=== PATIENT | female | born 1950 | race African-American/Black ===

== ENCOUNTER 2017-03-13 17:14 | Inpatient (IN) | payer MEDICARE, OTHER ==
[~2017-03-13] VITALS: Ht 167.6 cm; Wt 84.4 kg
[~2017-03-13 17:14] MED LIST: ATIVAN2 MG ORAL; AZITHROMYCIN250 MG ORAL; CYCLOBENZAPRINE10 MG ORAL; DESYREL50 MG ORAL; GABAPENTIN600 MG ORAL; HYDROCHLOROTH12.5 MG ORAL; HYDROCHLOROTHIA25 G1 MISC; HYDROCHLOROTHIA25 MG ORAL; KEFLEX500 MG ORAL; LEXAPRO10 MG ORAL; LOTREL 10-40 M1 EACH ORAL; NEURONTIN300 MG ORAL; NORCO 10/3251 EA ORAL; NORCO 5-325 TA1 EACH PO; PROZAC20 MG ORAL; ROBITUSSIN DM5 ML ORAL; SIMVASTATIN40 MG ORAL; VASERETIC1 EA PO; WELLBUTRIN XL150 M1 ORAL
[2017-03-13] MEDS ORDERED: Nitroglycerin Subl 0.4mg tab (Bottle Of 25) SL PRN ×2 (17:45→20:15)
[2017-03-13 17:50] VITALS: BP 168/81
[2017-03-13 18:30] VITALS: BP 155/74
[2017-03-13 18:46] LABS: BASOPHILS % (AUTO) 1.1 % (0.0-2.0); LYMPHOCYTES % (AUTO) 34.4 % (20.0-45.0); MEAN CORPUSCULAR HEMOGLOBIN 29.3 PG (27.0-31.0); MEAN CORPUSCULAR HGB CONC 32.1 G/DL (32.0-36.0); MEAN CORPUSCULAR VOLUME 91 FL (80-99); MEAN PLATELET VOLUME 8.8 FL (6.5-10.1); MONOCYTES % (AUTO) 4.7 % (1.0-10.0); NEUTROPHILS % (AUTO) 57.7 % (45.0-75.0); PLATELET COUNT 180 K/UL (150-450); RED BLOOD COUNT 4.76 M/UL (4.20-5.40); RED CELL DISTRIBUTION WIDTH 14.2 % (11.6-14.8); WHITE BLOOD COUNT 7.1 K/UL (4.8-10.8)
[2017-03-13] MEDS ORDERED: Morphine Sulfate 4mg/ml Inj IVP ONE (19:15)
[2017-03-13 19:26] LABS: ALANINE AMINOTRANSFERASE 17 U/L (3-33); ALBUMIN/GLOBULIN RATIO 1.9 (1.0-2.7); ANION GAP 14 (5-15); ASPARTATE AMINO TRANSFERASE 21 U/L (5-40); CALCIUM 10.1 mg/dL (8.6-10.2); CARBON DIOXIDE 27 mEQ/L (20-30); CHLORIDE 103 mEQ/L (98-107); CREATININE 0.9 mg/dL (0.5-0.9); GLOMERULAR FILTRATION RATE > 60 mL/min (>60); HEMOLYSIS 20; POTASSIUM 4.2 mEQ/L (3.4-4.9); SODIUM 144 mEQ/L (135-145); TOTAL PROTEIN 7.6 g/dL (6.6-8.7); TROPONIN I < 0.30 ng/mL (<=0.30)
[2017-03-13 19:30] VITALS: BP 159/84
[2017-03-13 19:36] LABS: CKMB < 1.5 ng/mL (< 3.8)
--- NOTE | 2017-03-13 19:39 | Emergency Room Report ---
History of Present Illness General Chief Complaint: Chest Pain Source: Patient Present Illness HPI 66-year-old female presents to ED complaining of chest pain. States it started proximal and one hour ago while at rest. Pain is midsternal, pressure, 8/10, nonradiating. Pain is constant. Took aspirin prior to arrival. Denies shortness of breath. No other aggravating or relieving factors. Denies drug use. Denies any other associated symptoms Allergies: Coded Allergies: No Known Allergies (Verified Allergy, Mild, 03/28/07) Patient History Past Medical History: HTN, COPD Past Surgical History: none Pertinent Family History: none Social History: Denies: alcohol use, drug use, smoking Now: No Immunizations: UTD Reviewed Nursing Documentation: PMH: Agreed, PSxH: Agreed Nursing Documentation-PMH Hx Cardiac Problems: Yes Hx Hypertension: Yes Hx Pacemaker: No Hx Asthma: No Hx COPD: Yes Hx Diabetes: No Hx Cancer: No Hx Gastrointestinal Problems: No Hx Dialysis: No Hx Neurological Problems: No Hx Cerebrovascular Accident: No Hx Seizures: No Review of Systems All Other Systems: negative except mentioned in HPI Physical Exam Vital Signs Date Time Temp Pulse Resp B/P Pulse Ox O2 Delivery O2 Flow Rate FiO2 03/13/17 17:20 102 22 168/81 99 Room Air Sp02 EP Interpretation: reviewed, normal General Appearance: no apparent distress, alert, GCS 15, non-toxic Head: normocephalic, atraumatic Eyes: bilateral eye PERRL, bilateral eye normal inspection ENT: hearing grossly normal, normal pharynx, no angioedema, normal voice Neck: full range of motion, supple/symm/no masses Respiratory: chest non-tender, lungs clear, normal breath sounds, speaking full sentences Cardiovascular #1: regular rate, rhythm, no edema Cardiovascular #2: 2+ carotid (R), 2+ carotid (L), 2+ radial (R), 2+ radial (L) , 2+ dorsalis pedis (R), 2+ dorsalis pedis (L) Gastrointestinal: normal bowel sounds, non tender, soft, non-distended, no guarding, no rebound Rectal: deferred Genitourinary: normal inspection, no CVA tenderness Musculoskeletal: back normal, gait/station normal, normal range of motion, non- tender Neurologic: alert, oriented x3, responsive, motor strength/tone normal, sensory intact, speech normal Psychiatric: judgement/insight normal, memory normal, mood/affect normal, no suicidal/homicidal ideation Reflexes: 3+ bicep (R), 3+ bicep (L), 3+ tricep (R), 3+ tricep (L), 3+ knee (R) , 3+ knee (L) Skin: normal color, no rash, warm/dry, well hydrated Lymphatic: no adenopathy Medical Decision Making Diagnostic Impression: Primary Impression: ACS (acute coronary syndrome) ER Course Hospital Course 66-year-old female presents ED complaining of chest pain Differential diagnoses include: NC/unstable angina, contusion, muscle strain, PTX, rib fracture Clinical course Patient placed on stretcher. 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 After initial history and physical I ordered labs, EKG, chest x-ray, NTG labs reviewed- no leukocytosis, hb/hct stable, electrolytes ok, trop negative EKG - NSR, no acute changes interpreted by me Chest x-ray- unremarkable chest pain did not improve with NTG, given morphine, IVFs Case discussed with Dr. Nguyen and he agreed to accept the patient to his service for further care and support I. I feel this is a highly complex case requiring extensive working including EKG/Rhythm strip, Xray/CT/US, Blood/urine lab work, repeat exams while in ED, and administration of strong opiates/narcotics for pain control, admission to hospital or close patient follow up. Diagnosis - ACS admitted to telemetry in serious condition Labs Test 03/13/17 18:20 White Blood Count 7.1 K/UL (4.8-10.8) Red Blood Count 4.76 M/UL (4.20-5.40) Hemoglobin 13.9 G/DL (12.0-16.0) Hematocrit 43.4 % (37.0-47.0) Mean Corpuscular Volume 91 FL (80-99) Mean Corpuscular Hemoglobin 29.3 PG (27.0-31.0) Mean Corpuscular Hemoglobin Concent 32.1 G/DL (32.0-36.0) Red Cell Distribution Width 14.2 % (11.6-14.8) Platelet Count 180 K/UL (150-450) Mean Platelet Volume 8.8 FL (6.5-10.1) Neutrophils (%) (Auto) 57.7 % (45.0-75.0) Lymphocytes (%) (Auto) 34.4 % (20.0-45.0) Monocytes (%) (Auto) 4.7 % (1.0-10.0) Eosinophils (%) (Auto) 2.0 % (0.0-3.0) Basophils (%) (Auto) 1.1 % (0.0-2.0) EKG Diagnostic Results EKG Time: 19:37 Rate: normal Rhythm: NSR ST Segments: no acute changes ASA given to the pt in ED: No - took at home Rhythm Strip Diag. Results EP Interpretation: yes Rhythm: NSR, no PVC's, no ectopy Chest X-Ray Diagnostic Results Chest X-Ray Ordered: Yes # of Views/Limited/Complete: 1 View Interpretation: no consolidation, no effusion, no pneumothorax, no acute cardiopulmonary disease Indication: Chest Pain Impression: No acute disease Date Electronically Signed: Mar 13, 2017 Time Electronically Signed: 19:37 Last Vital Signs Date Time Temp Pulse Resp B/P Pulse Ox O2 Delivery O2 Flow Rate FiO2 03/13/17 19:30 81 18 159/84 99 Room Air Status: improved Disposition: ADMITTED INPATIENT Condition: Serious Referrals: NOT CHOSEN IPA/,REFERRING (PCP) KELSI RUFFIN M.D. Mar 13, 2017 19:39
[2017-03-13] MEDS ORDERED: Norco 10mg/325mg tab ORAL PRN (20:15)
[2017-03-13] MEDS ORDERED: Diltiazem 25mg/5ml IV PRN (20:15)
[2017-03-13] MEDS ORDERED: Enalaprilat 2.5mg/2ml Inj IV PRN (20:15)
[2017-03-13] MEDS ORDERED: DuoNeb 0.5-3(2.5)mg/3ml neb HHN PRN (20:15)
[2017-03-13] MEDS ORDERED: Ketorolac 30mg Inj IV PRN (20:15)
[2017-03-13 20:30] VITALS: BP 154/84
[2017-03-13] MEDS ORDERED: TraZODone 50mg tab ORAL SCH (21:00)
[2017-03-13 21:10] VITALS: BP 159/72
[2017-03-13] MEDS ORDERED: AMLODIPINE BESYL5 MG ORAL (21:58)
[2017-03-13] MEDS ORDERED: ZOLOFT100 MG ORAL (21:58)
[2017-03-13] MEDS ORDERED: ATIVAN2 MG ORAL (21:58)
[2017-03-13] MEDS ORDERED: ASPIR 8181 MG ORAL (21:58)
[2017-03-13] MEDS ORDERED: WELLBUTRIN XL150 MG ORAL (21:58)
[2017-03-13] MEDS: Heparin 5000 units/ml inj SUBQ SCH (22:20)
[2017-03-13] MEDS: Morphine Sulfate 2mg/ml Inj IVP PRN (23:40)
[2017-03-14] VITALS (7 sets, daily range): BP systolic 109–160; BP diastolic 64–87
[2017-03-14] MEDS ORDERED: CRESTOR10 M2 ORAL (00:45)
[2017-03-14] MEDS: Morphine Sulfate 2mg/ml Inj IVP PRN ×3 (03:48→12:06)
[2017-03-14] MEDS: Aspirin Baby 81mg ORAL SCH (08:04)
[2017-03-14] MEDS: BuPROPion XL 150mg tab ORAL SCH ×2 (08:05→17:30)
[2017-03-14] MEDS: Sertraline 100mg tab ORAL SCH ×2 (08:05→17:30)
[2017-03-14] MEDS: Heparin 5000 units/ml inj SUBQ SCH ×2 (08:08→21:17)
[2017-03-14 08:25] LABS: BASOPHILS % (AUTO) 0.9 % (0.0-2.0); EOSINOPHILS % (AUTO) 3.8 % (0.0-3.0); LYMPHOCYTES % (AUTO) 41.5 % (20.0-45.0); MEAN CORPUSCULAR HEMOGLOBIN 28.7 PG (27.0-31.0); MEAN CORPUSCULAR VOLUME 90 FL (80-99); MEAN PLATELET VOLUME 8.4 FL (6.5-10.1); MONOCYTES % (AUTO) 8.5 % (1.0-10.0); NEUTROPHILS % (AUTO) 45.3 % (45.0-75.0); PLATELET COUNT 180 K/UL (150-450); RED BLOOD COUNT 4.25 M/UL (4.20-5.40); RED CELL DISTRIBUTION WIDTH 14.1 % (11.6-14.8)
[2017-03-14 08:35] LABS: INR 0.9 (0.9-1.1); PROTHROMBIN TIME 9.9 SEC (9.30-11.50)
[2017-03-14 08:46] LABS: TROPONIN I < 0.30 ng/mL (<=0.30)
[2017-03-14] MEDS ORDERED: Cyclobenzaprine 10mg Tab ORAL SCH (09:00)
[2017-03-14] MEDS ORDERED: BuPROPion XL 150mg tab ORAL SCH (09:00)
[2017-03-14 09:37] LABS: CHOLESTEROL 225 mg/dL (< 200); CHOLESTEROL/HDL RATIO 4.5 (3.3-4.4); CRP QUANT < 0.3 mg/dL (< 0.5); HEMOLYSIS 4; LDL CHOLESTEROL (CALC.) 139 mg/dL (60-99)
--- NOTE | 2017-03-14 10:49 | Diagnostic Imaging Report ---
Indication: Chest Pain Comparison: 12/10/15 A single view chest radiograph was obtained. Findings: No definite infiltrate or pulmonary vascular congestion identified. Lower cervical fusion hardware noted. The heart is borderline enlarged. The aorta is mildly enlarged consistent with atherosclerotic vascular disease. The bones are osteopenic. Impression: No acute disease
--- NOTE | 2017-03-14 12:42 | History and Physical ---
History of Present Illness General Date patient seen: Mar 14, 2017 Reason for Hospitalization: Chest Pain Present Illness HPI 66-year-old female presents to ED complaining of chest pain for one hour ago while at rest. Pain is midsternal, pressure, 8/10, nonradiating. Pain is constant. Took aspirin prior to arrival. Denies shortness of breath. No other aggravating or relieving factors. Denies drug use. Denies any other associated symptoms Allergies: Coded Allergies: No Known Allergies (Verified Allergy, Mild, 03/28/07) Medication History Scheduled Amlodipine Besylate* (Amlodipine Besylate*), 5 MG ORAL DAILY, (Reported) Aspirin* (Aspir 81*), 81 MG ORAL DAILY, (Reported) Bupropion Hcl* (Wellbutrin Xl*), 150 MG ORAL BID, (Reported) Escitalopram Oxalate* (Lexapro*), 10 MG ORAL DAILY Hydrochlorothiazide* (Hydrochlorothiazide*), 25 MG ORAL DAILY, (Reported) Lorazepam* (Ativan*), 2 MG ORAL BID, (Reported) Rosuvastatin Calcium* (Crestor*), MG ORAL QHS, (Reported) Sertraline Hcl* (Zoloft*), 100 MG ORAL BID, (Reported) Scheduled PRN Hydrocodone/Acetaminophen (Hydrocodon-Acetaminophn 10-325), 1 TAB ORAL Q4H PRN for For Pain, (Reported) Discontinued Medications Bupropion HCl (Wellbutrin Xl), 150 MG ORAL DAILY, (Reported) Discontinued Reason: Medication dose changed Cyclobenzaprine Hcl* (Flexeril*), 10 MG ORAL THREE TIMES A DAY, (Reported) Discontinued Reason: Pt stopped taking med Gabapentin (Neurontin), 300 MG ORAL TID, (Reported) Discontinued Reason: Pt stopped taking med Gabapentin* (Gabapentin*), 600 MG ORAL TID Discontinued Reason: Pt stopped taking med Lorazepam* (Ativan*), 2 MG ORAL TID, (Reported) Discontinued Reason: Medication dose changed Trazodone Hcl (Desyrel), 25 MG ORAL BEDTIME Discontinued Reason: Pt stopped taking med Patient History Healthcare decision maker Resuscitation status Full Code Advanced Directive on File Past Medical/Surgical History Past Medical/Surgical History: (1) Anxiety (2) Cervical herniated disc (3) History of fusion of cervical spine Review of Systems All Other Systems: negative except mentioned in HPI Physical Exam General Appearance: WD/WN Lines, tubes and drains: peripheral HEENT: normocephalic, atraumatic Neck: non-tender, normal alignment Respiratory/Chest: chest wall non-tender, lungs clear Breasts: no masses Cardiovascular/Chest: normal peripheral pulses, normal rate, regular rhythm Abdomen: normal bowel sounds, non tender, soft Extremities: normal range of motion, non-tender Skin Exam: normal pigmentation 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 Last 24 Hour Vital Signs Date Time Temp Pulse Resp B/P Pulse Ox O2 Delivery O2 Flow Rate FiO2 03/14/17 11:59 97.7 73 18 119/75 99 Room Air 03/14/17 08:06 87 144/69 03/14/17 08:00 85 03/14/17 08:00 99.1 87 18 144/69 100 Room Air 03/14/17 08:00 82 18 Room Air 03/14/17 04:00 97.9 82 20 146/80 97 03/14/17 04:00 83 03/14/17 00:00 75 03/14/17 00:00 97.0 79 18 153/87 98 Room Air 03/13/17 21:11 87 03/13/17 21:10 98.2 86 20 159/72 100 Room Air 03/13/17 20:30 74 18 154/84 100 Room Air 03/13/17 20:12 81 18 159/84 99 Room Air 03/13/17 19:30 81 18 159/84 99 Room Air 03/13/17 18:30 79 22 155/74 99 Room Air 03/13/17 17:50 89 22 Room Air 03/13/17 17:50 89 22 168/81 99 Room Air 03/13/17 17:49 168/81 03/13/17 17:20 102 22 168/81 99 Room Air Intake and Output 03/13/17 03/14/17 19:00 07:00 Intake Total 865 ml Output Total 3 ml Balance 862 ml Intake Oral 365 ml IV Total 500 ml Output Urine Total 3 ml # Voids 1 Laboratory Tests Test 03/13/17 18:20 03/13/17 20:45 03/14/17 07:50 White Blood Count 7.1 K/UL (4.8-10.8) 6.0 K/UL (4.8-10.8) Red Blood Count 4.76 M/UL (4.20-5.40) 4.25 M/UL (4.20-5.40) Hemoglobin 13.9 G/DL (12.0-16.0) 12.2 G/DL (12.0-16.0) Hematocrit 43.4 % (37.0-47.0) 38.2 % (37.0-47.0) Mean Corpuscular Volume 91 FL (80-99) 90 FL (80-99) Mean Corpuscular Hemoglobin 29.3 PG (27.0-31.0) 28.7 PG (27.0-31.0) Mean Corpuscular Hemoglobin Concent 32.1 G/DL (32.0-36.0) 32.0 G/DL (32.0-36.0) Red Cell Distribution Width 14.2 % (11.6-14.8) 14.1 % (11.6-14.8) Platelet Count 180 K/UL (150-450) 180 K/UL (150-450) Mean Platelet Volume 8.8 FL (6.5-10.1) 8.4 FL (6.5-10.1) Neutrophils (%) (Auto) 57.7 % (45.0-75.0) 45.3 % (45.0-75.0) Lymphocytes (%) (Auto) 34.4 % (20.0-45.0) 41.5 % (20.0-45.0) Monocytes (%) (Auto) 4.7 % (1.0-10.0) 8.5 % (1.0-10.0) Eosinophils (%) (Auto) 2.0 % (0.0-3.0) 3.8 % (0.0-3.0) H Basophils (%) (Auto) 1.1 % (0.0-2.0) 0.9 % (0.0-2.0) Sodium Level 144 mEQ/L (135-145) Potassium Level 4.2 mEQ/L (3.4-4.9) Chloride Level 103 mEQ/L (98-107) Carbon Dioxide Level 27 mEQ/L (20-30) Anion Gap 14 (5-15) Blood Urea Nitrogen 10 mg/dL (7-23) Creatinine 0.9 mg/dL (0.5-0.9) Estimat Glomerular Filtration Rate > 60 mL/min (>60) Glucose Level 105 mg/dL (74-106) Calcium Level 10.1 mg/dL (8.6-10.2) Total Bilirubin 0.4 mg/dL (0.0-1.2) Aspartate Amino Transf (AST/SGOT) 21 U/L (5-40) Alanine Aminotransferase (ALT/SGPT) 17 U/L (3-33) Alkaline Phosphatase 65 U/L (35-104) Total Creatine Kinase 82 U/L (26-140) Creatine Kinase MB < 1.5 ng/mL (< 3.8) Creatine Kinase MB Relative Index 1.8 Troponin I < 0.30 ng/mL (<=0.30) Pending < 0.30 ng/mL (<=0.30) Pro-B-Type Natriuretic Peptide 373 pg/mL (0-125) H Total Protein 7.6 g/dL (6.6-8.7) Albumin 5.0 g/dL (3.5-5.2) Globulin 2.6 g/dL Albumin/Globulin Ratio 1.9 (1.0-2.7) Prothrombin Time 9.9 SEC (9.30-11.50) Prothromb Time International Ratio 0.9 (0.9-1.1) Activated Partial Thromboplast Time 27 SEC (23-33) C-Reactive Protein, Quantitative < 0.3 mg/dL (< 0.5) Triglycerides Level 182 mg/dL (< 150) H Cholesterol Level 225 mg/dL (< 200) H LDL Cholesterol 139 mg/dL (60-99) H HDL Cholesterol 50 mg/dL (> 60) Cholesterol/HDL Ratio 4.5 (3.3-4.4) H Thyroid Stimulating Hormone (TSH) 4.070 uIU/mL (0.300-4.500) Height (Feet): 5 Height (Inches): 6.00 Weight (Pounds): 186 Medications Current Medications Medications (Trade) Dose Ordered Sig/Star Route PRN Reason Start Time Stop Time Status Last Admin Dose Admin Acetaminophen (Tylenol) 650 mg Q4H PRN ORAL FEVER 03/13/17 20:15 04/12/17 20:14 Acetaminophen/ Hydrocodone Bitart ([place] 10/325) 1 ea Q4H PRN ORAL For Pain 03/13/17 20:15 03/20/17 20:14 Albuterol/ Ipratropium (DuoNeb 0.5-3(2.5)mg/3ml) 3 ml EVERY 4 HOURS PRN HHN Shortness of Breath 03/13/17 20:15 03/18/17 20:14 Amlodipine Besylate (Norvasc) 5 mg DAILY ORAL 03/14/17 09:00 04/13/17 08:59 03/14/17 08:06 Aspirin (ASA) 162 mg DAILY ORAL 03/14/17 09:00 04/13/17 08:59 03/14/17 08:04 Atorvastatin Calcium (Lipitor) 40 mg BEDTIME ORAL 03/14/17 21:00 04/13/17 20:59 Bupropion HCl (Wellbutrin XL) 150 mg BID ORAL 03/14/17 09:00 04/13/17 08:59 03/14/17 08:05 Diltiazem HCl (Cardizem) 10 mg EVERY HOUR PRN IV heart rate more than 120, 03/13/17 20:15 04/12/17 20:14 Enalaprilat (Vasotec) 2.5 mg EVERY 6 HOURS PRN IV sbp more than 160 03/13/17 20:15 04/12/17 20:14 Escitalopram Oxalate (Lexapro) 10 mg DAILY ORAL 03/14/17 09:00 04/13/17 08:59 03/14/17 08:04 Heparin Sodium (Porcine) (Heparin 5000 units/ml) 5,000 units EVERY 12 HOURS SUBQ 03/13/17 21:00 04/12/17 20:59 03/14/17 08:08 Hydromorphone HCl (Dilaudid) 1 mg Q4H PRN IV pain 7-10 03/14/17 12:45 03/21/17 12:44 UNV Ketorolac Tromethamine (Toradol 30mg) 30 mg Q6HR PRN IV moderate pain ( 4-6) 03/13/17 20:15 03/18/17 20:14 Morphine Sulfate (Morphine Sulfate) 2 mg EVERY 4 HOURS PRN IVP severe Pain (Pain Scale 7-10) 03/13/17 20:15 03/20/17 20:14 03/14/17 12:06 Nitroglycerin (Ntg) 0.4 mg Q 5 MINS PRN SL Prn Chest Pain 03/13/17 20:15 04/12/17 20:14 Nitroglycerin (Ntg) 0.4 mg Q5M PRN SL Prn Chest Pain 03/13/17 17:45 03/13/17 17:49 Ondansetron HCl (Zofran) 4 mg Q6H PRN IVP Nausea & Vomiting 03/13/17 20:15 04/12/17 20:14 Polyethylene Glycol (Miralax) 17 gm DAILYPRN PRN ORAL Constipation 03/13/17 20:15 04/12/17 20:14 Sertraline HCl (Zoloft) 100 mg BID ORAL 03/14/17 09:00 04/13/17 08:59 03/14/17 08:05 Temazepam (Restoril) 15 mg HSPRN PRN ORAL Insomnia 03/13/17 20:15 03/20/17 20:14 03/13/17 23:40 Assessment/Plan Problem List: (1) ACS (acute coronary syndrome) ICD Codes: I24.9 - Acute ischemic heart disease, unspecified SNOMED: 606775255 (2) Costochondritis ICD Codes: M94.0 - Chondrocostal junction syndrome [[place]] SNOMED: 87768019 (3) Chronic pain ICD Codes: G89.29 - Other chronic pain SNOMED: 21367633 (4) Degenerative disc disease, cervical ICD Codes: M50.30 - Other cervical disc degeneration, unspecified cervical region SNOMED: 09363958 (5) History of fusion of cervical spine ICD Codes: Z98.1 - Arthrodesis status SNOMED: 03660824, 038107085 Assessment/Plan serial ekg, troponin echo cardio evaluation Pain consult DEBBY CHUNG Mar 14, 2017 12:42
[2017-03-14] MEDS ORDERED: Norco 10mg/325mg tab ORAL PRN (12:47)
--- NOTE | 2017-03-14 14:21 | Cardiology Progress Note ---
Assessment/Plan Assessment/Plan chest pain hyperlipidemia htn obeisty hep c chronci back pain anxiety depression trop neg will reepat ekg tele neg lucho review echo if no swma will need to ahve stress testing done as out pt Objective Last 24 Hour Vital Signs Date Time Temp Pulse Resp B/P Pulse Ox O2 Delivery O2 Flow Rate FiO2 03/14/17 11:59 97.7 73 18 119/75 99 Room Air 03/14/17 08:06 87 144/69 03/14/17 08:00 85 03/14/17 08:00 99.1 87 18 144/69 100 Room Air 03/14/17 08:00 82 18 Room Air 03/14/17 04:00 97.9 82 20 146/80 97 03/14/17 04:00 83 03/14/17 00:00 75 03/14/17 00:00 97.0 79 18 153/87 98 Room Air 03/13/17 21:11 87 03/13/17 21:10 98.2 86 20 159/72 100 Room Air 03/13/17 20:30 74 18 154/84 100 Room Air 03/13/17 20:12 81 18 159/84 99 Room Air 03/13/17 19:30 81 18 159/84 99 Room Air 03/13/17 18:30 79 22 155/74 99 Room Air 03/13/17 17:50 89 22 Room Air 03/13/17 17:50 89 22 168/81 99 Room Air 03/13/17 17:49 168/81 03/13/17 17:20 102 22 168/81 99 Room Air Intake and Output 03/13/17 03/14/17 19:00 07:00 Intake Total 865 ml Output Total 3 ml Balance 862 ml Intake Oral 365 ml IV Total 500 ml Output Urine Total 3 ml # Voids 1 Laboratory Tests Test 03/13/17 18:20 03/13/17 20:45 03/14/17 07:50 White Blood Count 7.1 K/UL (4.8-10.8) 6.0 K/UL (4.8-10.8) Red Blood Count 4.76 M/UL (4.20-5.40) 4.25 M/UL (4.20-5.40) Hemoglobin 13.9 G/DL (12.0-16.0) 12.2 G/DL (12.0-16.0) Hematocrit 43.4 % (37.0-47.0) 38.2 % (37.0-47.0) Mean Corpuscular Volume 91 FL (80-99) 90 FL (80-99) Mean Corpuscular Hemoglobin 29.3 PG (27.0-31.0) 28.7 PG (27.0-31.0) Mean Corpuscular Hemoglobin Concent 32.1 G/DL (32.0-36.0) 32.0 G/DL (32.0-36.0) Red Cell Distribution Width 14.2 % (11.6-14.8) 14.1 % (11.6-14.8) Platelet Count 180 K/UL (150-450) 180 K/UL (150-450) Mean Platelet Volume 8.8 FL (6.5-10.1) 8.4 FL (6.5-10.1) Neutrophils (%) (Auto) 57.7 % (45.0-75.0) 45.3 % (45.0-75.0) Lymphocytes (%) (Auto) 34.4 % (20.0-45.0) 41.5 % (20.0-45.0) Monocytes (%) (Auto) 4.7 % (1.0-10.0) 8.5 % (1.0-10.0) Eosinophils (%) (Auto) 2.0 % (0.0-3.0) 3.8 % (0.0-3.0) H Basophils (%) (Auto) 1.1 % (0.0-2.0) 0.9 % (0.0-2.0) Sodium Level 144 mEQ/L (135-145) Potassium Level 4.2 mEQ/L (3.4-4.9) Chloride Level 103 mEQ/L (98-107) Carbon Dioxide Level 27 mEQ/L (20-30) Anion Gap 14 (5-15) Blood Urea Nitrogen 10 mg/dL (7-23) Creatinine 0.9 mg/dL (0.5-0.9) Estimat Glomerular Filtration Rate > 60 mL/min (>60) Glucose Level 105 mg/dL (74-106) Calcium Level 10.1 mg/dL (8.6-10.2) Total Bilirubin 0.4 mg/dL (0.0-1.2) Aspartate Amino Transf (AST/SGOT) 21 U/L (5-40) Alanine Aminotransferase (ALT/SGPT) 17 U/L (3-33) Alkaline Phosphatase 65 U/L (35-104) Total Creatine Kinase 82 U/L (26-140) Creatine Kinase MB < 1.5 ng/mL (< 3.8) Creatine Kinase MB Relative Index 1.8 Troponin I < 0.30 ng/mL (<=0.30) Pending < 0.30 ng/mL (<=0.30) Pro-B-Type Natriuretic Peptide 373 pg/mL (0-125) H Total Protein 7.6 g/dL (6.6-8.7) Albumin 5.0 g/dL (3.5-5.2) Globulin 2.6 g/dL Albumin/Globulin Ratio 1.9 (1.0-2.7) Prothrombin Time 9.9 SEC (9.30-11.50) Prothromb Time International Ratio 0.9 (0.9-1.1) Activated Partial Thromboplast Time 27 SEC (23-33) C-Reactive Protein, Quantitative < 0.3 mg/dL (< 0.5) Triglycerides Level 182 mg/dL (< 150) H Cholesterol Level 225 mg/dL (< 200) H LDL Cholesterol 139 mg/dL (60-99) H HDL Cholesterol 50 mg/dL (> 60) Cholesterol/HDL Ratio 4.5 (3.3-4.4) H Thyroid Stimulating Hormone (TSH) 4.070 uIU/mL (0.300-4.500) CHARLETTE MORRIS Mar 14, 2017 14:21
[2017-03-14] MEDS: Miralax 17gm pkt ORAL PRN (16:12)
--- NOTE | 2017-03-14 16:16 | General Progress Note ---
Assessment/Plan Assessment/Plan (1) Degenerative disc disease, cervical (2) Cervical spondylosis (3) Cervical herniated disc (4) Cervical radiculopathy (5) History of fusion of cervical spine We will continue Dilaudid and [place] Pt was d/w Dr. Tucker and he concurred. Thank you for the courtesy of this consultation. Subjective Date patient seen: Mar 14, 2017 Time patient seen: 03:30 - pm Allergies: Coded Allergies: No Known Allergies (Verified Allergy, Mild, 03/28/07) Subjective Constitutional: Denies: chills, diaphoresis, fever, malaise, no symptoms, other , weakness HEENT: Denies: blurred vision, double vision, ear discharge, ear pain, eye pain , mouth pain, mouth swelling, no symptoms, nose congestion, nose pain, other, tearing, throat pain, throat swelling Cardiovascular: Denies: chest pain, edema, irregular heart rate, lightheadedness, no symptoms, other, palpitations, syncope Respiratory: Denies: SOB at rest, SOB with excertion, cough, no symptoms, orthopnea, other, shortness of breath, sputum, stridor, wheezing Gastrointestinal/Abdominal: Denies: abdomen distended, abdominal pain, black stools, blood in stool, constipated, diarrhea, difficulty swallowing, nausea, no symptoms, other, poor appetite, poor fluid intake, rectal bleeding, tarry stools, vomiting Genitourinary: Denies: burning, discharge, flank pain, frequency, hematuria, incontinence, no symptoms, other, pain, urgency Neurologic/Psychiatric: Denies: anxiety, depressed, emotional problems, headache, no symptoms, numbness, other, paresthesia, pre-existing deficit, seizure, tingling, tremors, weakness Endocrine: Denies: excessive sweating, flushing, increased hunger, increased thirst, increased urine, intolerance to cold, intolerance to heat, no symptoms, other, unexplained weight gain, unexplained weight Subjective Patient is known pt from prior admission admitted for chest pain under the care of Dr. Cochran. She continues to c/o neck pain and was started on Dilaudid 1mg IVP Q4H PRN severe pain and [place] 10/325mg PO 1 tab Q4H PRN moderate pain. She is in no signs of pain at this time. Objective Last 24 Hour Vital Signs Date Time Temp Pulse Resp B/P Pulse Ox O2 Delivery O2 Flow Rate FiO2 03/14/17 11:59 97.7 73 18 119/75 99 Room Air 03/14/17 08:06 87 144/69 03/14/17 08:00 85 03/14/17 08:00 99.1 87 18 144/69 100 Room Air 03/14/17 08:00 82 18 Room Air 03/14/17 04:00 97.9 82 20 146/80 97 03/14/17 04:00 83 03/14/17 00:00 75 03/14/17 00:00 97.0 79 18 153/87 98 Room Air 03/13/17 21:11 87 03/13/17 21:10 98.2 86 20 159/72 100 Room Air 03/13/17 20:30 74 18 154/84 100 Room Air 03/13/17 20:12 81 18 159/84 99 Room Air 03/13/17 19:30 81 18 159/84 99 Room Air 03/13/17 18:30 79 22 155/74 99 Room Air 03/13/17 17:50 89 22 Room Air 03/13/17 17:50 89 22 168/81 99 Room Air 03/13/17 17:49 168/81 03/13/17 17:20 102 22 168/81 99 Room Air Intake and Output 03/13/17 03/14/17 19:00 07:00 Intake Total 865 ml Output Total 3 ml Balance 862 ml Intake Oral 365 ml IV Total 500 ml Output Urine Total 3 ml # Voids 1 Laboratory Tests 03/13/17 18:20: White Blood Count 7.1, Red Blood Count 4.76, Hemoglobin 13.9, Hematocrit 43.4, Mean Corpuscular Volume 91, Mean Corpuscular Hemoglobin 29.3, Mean Corpuscular Hemoglobin Concent 32.1, Red Cell Distribution Width 14.2, Platelet Count 180, Mean Platelet Volume 8.8, Neutrophils (%) (Auto) 57.7, Lymphocytes (%) (Auto) 34.4, Monocytes (%) (Auto) 4.7, Eosinophils (%) (Auto) 2.0, Basophils (%) (Auto ) 1.1, Sodium Level 144, Potassium Level 4.2, Chloride Level 103, Carbon Dioxide Level 27, Anion Gap 14, Blood Urea Nitrogen 10, Creatinine 0.9, Estimat Glomerular Filtration Rate > 60, Glucose Level 105, Calcium Level 10.1, Total Bilirubin 0.4, Aspartate Amino Transf (AST/SGOT) 21, Alanine Aminotransferase ( ALT/SGPT) 17, Alkaline Phosphatase 65, Total Creatine Kinase 82, Creatine Kinase MB < 1.5, Creatine Kinase MB Relative Index 1.8, Troponin I < 0.30, Pro-B -Type Natriuretic Peptide 373H, Total Protein 7.6, Albumin 5.0, Globulin 2.6, Albumin/Globulin Ratio 1.9 03/13/17 20:45: Troponin I [Pending] 03/14/17 07:50: White Blood Count 6.0, Red Blood Count 4.25, Hemoglobin 12.2, Hematocrit 38.2, Mean Corpuscular Volume 90, Mean Corpuscular Hemoglobin 28.7, Mean Corpuscular Hemoglobin Concent 32.0, Red Cell Distribution Width 14.1, Platelet Count 180, Mean Platelet Volume 8.4, Neutrophils (%) (Auto) 45.3, Lymphocytes (%) (Auto) 41.5, Monocytes (%) (Auto) 8.5, Eosinophils (%) (Auto) 3.8H, Basophils (%) (Auto ) 0.9, Troponin I < 0.30, Prothrombin Time 9.9, Prothromb Time International Ratio 0.9, Activated Partial Thromboplast Time 27, C-Reactive Protein, Quantitative < 0.3, Triglycerides Level 182H, Cholesterol Level 225H, LDL Cholesterol 139H, HDL Cholesterol 50, Cholesterol/HDL Ratio 4.5H, Thyroid Stimulating Hormone (TSH) 4.070 Height (Feet): 5 Height (Inches): 6.00 Weight (Pounds): 186 Objective General Appearance: no apparent distress, alert EENT: normal ENT inspection Neck: normal alignment, supple Cardiovascular: normal rate, regular rhythm Respiratory/Chest: lungs clear, normal breath sounds Abdomen: non tender, soft Edema: no edema noted Arm (L), no edema noted Arm (R), no edema noted Leg (L), no edema noted Leg (R), no edema noted Pedal (L), no edema noted Pedal (R), no edema noted Generalized Neurologic: alert, oriented x 3 Skin: normal pigmentation LISBET KEANE P.Gill Mar 14, 2017 16:16
--- NOTE | 2017-03-14 18:42 | History & Physical ---
History and Physical History & Physicial Dictated for Int Med-Dr Nguyen no. [id number]. HYACINTH TEJADA Mar 14, 2017 18:42
[2017-03-14] MEDS: LORazepam 1mg tab ORAL PRN (19:43)
[2017-03-15] VITALS (8 sets, daily range): BP systolic 110–164; BP diastolic 61–88
--- NOTE | 2017-03-15 01:45 | History and Physical Report ---
DATE OF ADMISSION: 03/13/2017 CHIEF COMPLAINT: The patient is a 66-year-old female, who presents with chief complaint of chest pain. HISTORY OF PRESENT ILLNESS: The patient states it began yesterday, 03/13/2017. The patient began to experience chest pain. Chest pain did not radiate to the jaw. The patient states chest pain did radiate to bilateral shoulders. The patient presented to [place] emergency room. Initial blood pressure was found to be elevated. The patient was admitted for chest pain and uncontrolled hypertension. PAST MEDICAL HISTORY: Significant for: 1. Hypertension. 2. Hypercholesterolemia. 3. Lumbar stenosis. 4. Torn Meniscus in the left knee. 5. Anxiety. 6. Depression. PAST SURGICAL HISTORY: Significant for cervical spine laminectomy. CURRENT MEDICATIONS: 1. Amlodipine 5 mg one tablet p.o. daily. 2. Aspirin 81 mg one tablet p.o. daily. 3. Wellbutrin 150 mg one tablet p.o. twice daily. 4. Zoloft 100 mg one tablet p.o. twice daily. 5. Ativan 1 mg one tablet p.o. twice daily. 6. [place]ell 10/325 mg one tablet p.o. every 6 hours p.r.n. 7. Crestor 10 mg one tablet p.o. at bedtime. ALLERGIES: "NSAIDs." The patient is able to tolerate aspirin. SOCIAL HISTORY: The patient is single and lives alone. The patient admits to tobacco use of one-half pack per day. The patient denies alcohol use. REVIEW OF SYSTEMS: Constitutional: The patient denies weight loss or weight gain. The patient denies fevers or chills. HEENT: The patient denies ear or throat pain. Cardiovascular: The patient complains of chest pain as above. The patient denies palpitations. Chest: The patient denies wheeze or shortness of breath. Abdomen: The patient denies nausea, vomiting, diarrhea, or constipation. Genitourinary: The patient denies dysuria or increased frequency of urination. Neuromuscular: The patient denies seizures or generalized weakness. PHYSICAL EXAMINATION: VITAL SIGNS: Temperature 98.2 degrees, respirations 20 to 22, pulse tachycardic at 102, and blood pressure 168/81. GENERAL: The patient is well-nourished and well-developed female, in no apparent distress. HEENT: Eyes, pupils are equal and responsive to light and accommodation. Extraocular movements are intact. NECK: Supple without lymphadenopathy. CHEST: Lungs are clear to auscultation bilaterally without wheezes or rales. CARDIOVASCULAR: Regular rate. S1 and S2 are normal without murmurs, rubs, or gallops. ABDOMEN: Soft, nontender, and nondistended. Positive bowel sounds. No evidence of hepatosplenomegaly. Currently, no rebound or guarding noted. EXTREMITIES: Negative for clubbing, cyanosis, or edema. RECTAL: Refused. GENITALIA: Refused. NEUROLOGIC: Cranial nerves II through XII are grossly intact without focal deficits. Motor strength is 5/5 bilaterally. Deep tendon reflexes are 2+ plantar. LABORATORY STUDIES: Sodium 144, potassium 4.2, chloride 103, CO2 27, BUN 10, creatinine 0.9, and glucose 105. Troponin less than 0.3. BNP 373. WBC 7.1, hemoglobin 13.9, hematocrit 43.4, and platelets 180,000. EKG demonstrated normal sinus rhythm. Ventricular response, 100 beats per minute. There were no ST changes or Q-waves noted. ASSESSMENT: This is a 66-year-old female. 1. Chest pain. 2. Uncontrolled hypertension. 3. Hypercholesterolemia. 4. Lumbar stenosis. 5. Left knee pain. 6. Left meniscus tear. 7. Anxiety. 8. Depression. TREATMENT: 1. Chest pain. A Cardiology consultation is obtained with Dr. Wesley Cummings. Serial troponin levels will be performed. The patient may require a Cardiolite stress test. We will follow recommendations of Cardiology. 2. Uncontrolled hypertension. Continue Norvasc as above. Clonidine has been added p.r.n. for systolic greater than 150 or diastolic greater than 100. 3. Lumbar stenosis. 4. Left meniscus tear. 5. Anxiety/depression. Continue Wellbutrin, Zoloft and Lexapro as above. Brent Sullivan M.D. DR: MARLON JOB#: [id number] CC:
--- NOTE | 2017-03-15 02:45 | Consultation ---
DATE OF CONSULTATION: CONSULTING PHYSICIAN: Wesley Cummings M.D. REFERRING PHYSICIAN: Jonathan Cochran M.D. REASON FOR REFERRAL: Chest pain. HISTORY OF PRESENT ILLNESS: This is a 66-year-old female who presented to the hospital because of chest pain while mopping the floor. She said she stopped the mopping and eventually took a bus and came to the emergency room of [facility]. The pain was still present. She still has the pain a little bit. She has had this pain on prior occasions. She has had evaluation including a stress test at [facility], she says sometime ago according to herself. Nevertheless, it is not a new pain for her. She has three-pillow usage, but not because of shortness of breath, but because of comfort. There is no PND. She has occasional palpitations and dizziness on standing. PAST MEDICAL HISTORY: Positive for history of high blood pressure. She has had no heart attack, no cancer, no stroke, no diabetes, and no hyperlipidemia. She does have a history of COPD. No hepatitis or tuberculosis. No ulcers. No kidney problems, liver problems, or thyroid problems or anemia. She says she does have arthritis. Ovaries and uterus were taken out previously and she does not have any of those left. She denies any blood clots and she has never has any now including the blood vessels to heart, legs, or neck. She has had history of depression, anemia, hepatitis C, history of substance and alcohol abuse previously, and cervical disease status post surgery at [facility] by Dr. Hooper and depression. She has had right-sided C6-7 ACDF for cervical myelopathy. She was apparently seen by Dr. Hooper who thought previously that she has pseudoarthrosis on prior occasions. She has also been followed previously by the hepatology service at [facility] for chronic hepatitis C. ALLERGIES: She is not allergic to any medications. SOCIAL HISTORY: She still smokes. She quit alcoholic beverages 20 years ago. She does not use drugs. REVIEW OF SYSTEMS: GASTROINTESTINAL: Does some nausea, but no vomiting. No diarrhea. GENITOURINARY: Negative. PULMONARY: Positive coughing occasionally and wheezing occasionally. CONSTITUTIONAL: Negative. NEUROLOGIC: Negative. PHYSICAL EXAMINATION: GENERAL: Overweight elderly female, in no apparent respiratory distress. NECK: Supple. No jugular venous distention. LUNGS: Decreased breath sounds noted bilaterally. CARDIAC: Regular rate and rhythm. No heaves. No thrills. No gallops or rubs are noted. ABDOMEN: Soft and nontender, obese. Positive bowel sounds. EXTREMITIES: There is no clubbing, cyanosis, nor is there any edema. NEUROLOGIC: She is awake, alert, responsive, and in no apparent respiratory distress. LABORATORY AND DIAGNOSTIC DATA: White count 6, hemoglobin 12.2, and platelet count 180,000. Two sets of cardiac enzymes are negative approximately 12 hours apart. Cholesterol 225 with LDL of 139 and HDL of 50. Sodium 144, potassium 4.2, chloride 103, bicarbonate 27, BUN 10, creatinine 0.9, and glucose of 105, calcium is 10.1, proBNP is only 373. TSH of 4.07 and her INR was 0.9. At the time of admission, her telemetry data shows normal sinus rhythm. Her echocardiogram preliminary report shows ejection fraction 60% to 65%. No aortic regurgitation or mitral regurgitation. Diastolic relaxation abnormality of grade 1, EF of 60% to 65%. EKG, sinus rhythm, normal QRS axis, no ST-T wave abnormality. Her chest x-ray yesterday when she came in showed no acute disease. ASSESSMENT: 1. Chest pain. 2. Chronic obstructive pulmonary disease per the patient's history. 3. History of hepatitis C infection. 4. History of hypertension. 5. Depression and anxiety. 6. Hyperlipidemia. 7. Chronic obstructive pulmonary disease. 8. Chronic back pain. PLAN: Dr. Cochran, this patient was seen in cardiac consultation. The patient's electrocardiogram is unremarkable at least on one occasion. EKG is unremarkable. She has COPD. She uses inhalers. Unlikely to be able to tolerate Adenosine Cardiolite stress testing here, in fact if her 2 EKG and cardiac enzymes are negative, she may need to have a workup performed as an outpatient possibly at [facility]. I tried looking in the [facility] website for any history of stress test that she reports having had, but unfortunately I am not able to find any information in that regard. Thank you Dr. Nguyen for allowing me to participate in the care of this patient. Wesley Cummings M.D. DR: SAHIL JOB#: [id number] CC:
[2017-03-15] MEDS: Miralax 17gm pkt ORAL PRN (04:41)
[2017-03-15] MEDS: LORazepam 1mg tab ORAL PRN (07:01)
[2017-03-15 07:30] LABS: BASOPHILS % (AUTO) 1.2 % (0.0-2.0); EOSINOPHILS % (AUTO) 4.7 % (0.0-3.0); MEAN CORPUSCULAR HEMOGLOBIN 30.1 PG (27.0-31.0); MEAN CORPUSCULAR HGB CONC 32.9 G/DL (32.0-36.0); MEAN CORPUSCULAR VOLUME 91 FL (80-99); MEAN PLATELET VOLUME 8.5 FL (6.5-10.1); MONOCYTES % (AUTO) 7.7 % (1.0-10.0); NEUTROPHILS % (AUTO) 49.4 % (45.0-75.0); PLATELET COUNT 148 K/UL (150-450); RED BLOOD COUNT 3.87 M/UL (4.20-5.40); RED CELL DISTRIBUTION WIDTH 13.7 % (11.6-14.8); WHITE BLOOD COUNT 6.2 K/UL (4.8-10.8)
[2017-03-15 07:46] LABS: TROPONIN I < 0.30 ng/mL (<=0.30)
[2017-03-15 07:54] LABS: ANION GAP 17 (5-15); CALCIUM 9.6 mg/dL (8.6-10.2); CARBON DIOXIDE 26 mEQ/L (20-30); CHLORIDE 97 mEQ/L (98-107); CREATININE 0.8 mg/dL (0.5-0.9); GLOMERULAR FILTRATION RATE > 60 mL/min (>60); HEMOLYSIS 9; POTASSIUM 3.9 mEQ/L (3.4-4.9); SODIUM 140 mEQ/L (135-145)
[2017-03-15] MEDS: BuPROPion XL 150mg tab ORAL SCH ×2 (08:11→18:07)
[2017-03-15] MEDS: Aspirin Baby 81mg ORAL SCH (08:11)
[2017-03-15] MEDS: Sertraline 100mg tab ORAL SCH ×2 (08:11→18:07)
[2017-03-15] MEDS: Heparin 5000 units/ml inj SUBQ SCH ×2 (08:13→20:32)
[2017-03-15] MEDS ORDERED: Bisacodyl EC 5mg tab ORAL PRN (08:45)
--- NOTE | 2017-03-15 08:46 | General Progress Note ---
Assessment/Plan Assessment/Plan (1) Degenerative disc disease, cervical (2) Cervical spondylosis (3) Cervical herniated disc (4) Cervical radiculopathy (5) History of fusion of cervical spine We will continue Rodney Pt was d/w Dr. Tucker and he concurred. Subjective Date patient seen: Mar 15, 2017 Time patient seen: 06:45 - am Allergies: Coded Allergies: No Known Allergies (Verified Allergy, Mild, 03/28/07) Subjective Constitutional: Denies: chills, diaphoresis, fever, malaise, no symptoms, other , weakness HEENT: Denies: blurred vision, double vision, ear discharge, ear pain, eye pain , mouth pain, mouth swelling, no symptoms, nose congestion, nose pain, other, tearing, throat pain, throat swelling Cardiovascular: Denies: chest pain, edema, irregular heart rate, lightheadedness, no symptoms, other, palpitations, syncope Respiratory: Denies: SOB at rest, SOB with excertion, cough, no symptoms, orthopnea, other, shortness of breath, sputum, stridor, wheezing Gastrointestinal/Abdominal: Denies: abdomen distended, abdominal pain, black stools, blood in stool, constipated, diarrhea, difficulty swallowing, nausea, no symptoms, other, poor appetite, poor fluid intake, rectal bleeding, tarry stools, vomiting Genitourinary: Denies: burning, discharge, flank pain, frequency, hematuria, incontinence, no symptoms, other, pain, urgency Neurologic/Psychiatric: Denies: anxiety, depressed, emotional problems, headache, no symptoms, numbness, other, paresthesia, pre-existing deficit, seizure, tingling, tremors, weakness Endocrine: Denies: excessive sweating, flushing, increased hunger, increased thirst, increased urine, intolerance to cold, intolerance to heat, no symptoms, other, unexplained weight gain, unexplained weight Subjective Pt is laying in bed and her pain has been stable and tolerated on the medication. Objective Last 24 Hour Vital Signs Date Time Temp Pulse Resp B/P Pulse Ox O2 Delivery O2 Flow Rate FiO2 03/15/17 08:11 84 158/85 03/15/17 08:04 97.3 84 18 158/85 95 Room Air 03/15/17 07:27 82 18 Room Air 03/15/17 04:40 78 152/85 03/15/17 04:34 97.7 77 20 164/88 99 Nasal Cannula 2.0 03/15/17 04:00 78 03/15/17 00:34 98.2 80 20 153/79 98 Room Air 03/15/17 00:00 78 03/14/17 22:42 77 20 139/83 Nasal Cannula 2.0 03/14/17 20:01 97.0 80 20 160/74 97 Room Air 03/14/17 20:00 82 03/14/17 19:36 87 18 Room Air 03/14/17 16:00 81 03/14/17 16:00 97.9 94 18 109/81 95 Room Air 03/14/17 12:00 77 03/14/17 11:59 97.7 73 18 119/75 99 Room Air Intake and Output 03/14/17 03/15/17 19:00 07:00 Intake Total 640 ml Output Total 640 ml Balance 0 ml Intake Oral 640 ml Output Urine Total 640 ml # Voids 4 3 Laboratory Tests 03/15/17 05:10: White Blood Count 6.2, Red Blood Count 3.87L, Hemoglobin 11.7L, Hematocrit 35.4L , Mean Corpuscular Volume 91, Mean Corpuscular Hemoglobin 30.1, Mean Corpuscular Hemoglobin Concent 32.9, Red Cell Distribution Width 13.7, Platelet Count 148L, Mean Platelet Volume 8.5, Neutrophils (%) (Auto) 49.4, Lymphocytes ( %) (Auto) 37.0, Monocytes (%) (Auto) 7.7, Eosinophils (%) (Auto) 4.7H, Basophils (%) (Auto) 1.2 03/15/17 05:40: Sodium Level 140, Potassium Level 3.9, Chloride Level 97L, Carbon Dioxide Level 26, Anion Gap 17H, Blood Urea Nitrogen 17, Creatinine 0.8, Estimat Glomerular Filtration Rate > 60, Glucose Level 102, Calcium Level 9.6, Troponin I < 0.30 Height (Feet): 5 Height (Inches): 6.00 Weight (Pounds): 186 Objective General Appearance: no apparent distress, alert EENT: normal ENT inspection Neck: normal alignment, supple Cardiovascular: normal rate, regular rhythm Respiratory/Chest: lungs clear, normal breath sounds Abdomen: non tender, soft Edema: no edema noted Arm (L), no edema noted Arm (R), no edema noted Leg (L), no edema noted Leg (R), no edema noted Pedal (L), no edema noted Pedal (R), no edema noted Generalized Neurologic: alert, oriented x 3 Skin: normal pigmentation LISBET KEANE Mar 15, 2017 08:46
[2017-03-15] MEDS ORDERED: Bisacodyl EC 5mg tab ORAL ONE (09:00)
--- NOTE | 2017-03-15 09:11 | Cardiology Report ---
APPROVED REPORT EXAM: Two-dimensional and M-mode echocardiogram with Doppler and color Doppler. INDICATION Left ventricular function M-Mode DIMENSIONS IVSd0.7 (0.7-1.1cm)Left Atrium (MM)2.7 (1.6-4.0cm) LVDd5.3 (3.5-5.6cm)Aortic Root3.2 (2.0-3.7cm) PWd0.9 (0.7-1.1cm)Aortic Cusp Exc.1.9 (1.5-2.0cm) LVDs4.2 (2.5-4.0cm) PWs0.9 cm Technically difficult study due to poor acoustic windows. Normal left ventricular chamber size, systolic function and wall motion. Left ventricular ejection fraction estimated to be 60-65 %. Mild left ventricular hypertrophy. No evidence of pericardial fat or effusion. Right cardiac chamber sizes are within normal limits. Mild left atrial enlargement by 2D. Focal aortic valve sclerosis with adequate cusp excursion Thickened mitral valve leaflets with normal excursion. Mild mitral annulus and aortic root calcification. Pulmonic valve not well visualized. Normal tricuspid valve structure. IVC is normal in size with physiological collapse. A color flow and spectral Doppler study was performed and revealed: No aortic regurgitation. No mitral regurgitation. Left ventricular diastolic dysfunction grade 1. Trace tricuspid regurgitation.
--- NOTE | 2017-03-15 12:44 | Internal Med Progress Note ---
Subjective Date of Service: Mar 15, 2017 Physician Name Tejada,Hyacinth Attending Physician Jonathan Cochran Current Medications Medications (Trade) Dose Ordered Sig/Star Route PRN Reason Start Time Stop Time Status Last Admin Dose Admin Acetaminophen (Tylenol) 650 mg Q4H PRN ORAL FEVER 03/13/17 20:15 04/12/17 20:14 Acetaminophen/ Hydrocodone Bitart ([place] 10/325) 1 ea Q4H PRN ORAL Moderate Pain (Pain Scale 4-6) 03/14/17 12:47 03/20/17 20:14 Albuterol/ Ipratropium (DuoNeb 0.5-3(2.5)mg/3ml) 3 ml EVERY 4 HOURS PRN HHN Shortness of Breath 03/13/17 20:15 03/18/17 20:14 Amlodipine Besylate (Norvasc) 5 mg DAILY ORAL 03/14/17 09:00 04/13/17 08:59 03/15/17 08:11 Aspirin (ASA) 162 mg DAILY ORAL 03/14/17 09:00 04/13/17 08:59 03/15/17 08:11 Atorvastatin Calcium (Lipitor) 40 mg BEDTIME ORAL 03/14/17 21:00 04/13/17 20:59 03/14/17 21:15 Bupropion HCl (Wellbutrin XL) 150 mg BID ORAL 03/14/17 09:00 04/13/17 08:59 03/15/17 08:11 Diltiazem HCl (Cardizem) 10 mg EVERY HOUR PRN IV heart rate more than 120, 03/13/17 20:15 04/12/17 20:14 Enalaprilat (Vasotec) 2.5 mg EVERY 6 HOURS PRN IV sbp more than 160 03/13/17 20:15 04/12/17 20:14 Escitalopram Oxalate (Lexapro) 10 mg DAILY ORAL 03/14/17 09:00 04/13/17 08:59 03/15/17 08:11 Heparin Sodium (Porcine) (Heparin 5000 units/ml) 5,000 units EVERY 12 HOURS SUBQ 03/13/17 21:00 04/12/17 20:59 03/15/17 08:13 Hydromorphone HCl (Dilaudid) 1 mg Q4H PRN IV Severe Pain (Pain Scale 7-10) 03/14/17 12:45 03/21/17 12:44 03/15/17 08:54 Lorazepam (Ativan) 2 mg BID PRN ORAL anxiety 03/14/17 18:45 03/21/17 18:44 03/15/17 07:01 Nitroglycerin (Ntg) 0.4 mg Q 5 MINS PRN SL Prn Chest Pain 03/13/17 20:15 04/12/17 20:14 Ondansetron HCl (Zofran) 4 mg Q6H PRN IVP Nausea & Vomiting 03/13/17 20:15 04/12/17 20:14 Polyethylene Glycol (Miralax) 17 gm DAILYPRN PRN ORAL Constipation 03/13/17 20:15 04/12/17 20:14 03/15/17 04:41 Sennosides (Senokot) 8.6 mg BID ORAL 03/15/17 09:00 04/14/17 08:59 03/15/17 08:54 Sertraline HCl (Zoloft) 100 mg BID ORAL 03/14/17 09:00 04/13/17 08:59 03/15/17 08:11 Temazepam (Restoril) 15 mg HSPRN PRN ORAL Insomnia 03/13/17 20:15 03/20/17 20:14 03/15/17 00:35 Allergies: Coded Allergies: No Known Allergies (Verified Allergy, Mild, 03/28/07) ROS Limited/Unobtainable: No Constitutional: Reports: no symptoms HEENT: Reports: no symptoms Cardiovascular: Reports: chest pain Respiratory: Reports: no symptoms Gastrointestinal/Abdominal: Reports: no symptoms Genitourinary: Reports: no symptoms Neurologic/Psychiatric: Reports: no symptoms Subjective 66 YO F admitted with chest pain. Cover for Int Benjamín-Dr Everett. Objective Last Vital Signs Date Time Temp Pulse Resp B/P Pulse Ox O2 Delivery O2 Flow Rate FiO2 03/15/17 11:31 97.1 64 18 110/61 95 Room Air 03/15/17 04:34 2.0 Laboratory Tests Test 03/15/17 05:10 03/15/17 05:40 White Blood Count 6.2 K/UL (4.8-10.8) Red Blood Count 3.87 M/UL (4.20-5.40) L Hemoglobin 11.7 G/DL (12.0-16.0) L Hematocrit 35.4 % (37.0-47.0) L Mean Corpuscular Volume 91 FL (80-99) Mean Corpuscular Hemoglobin 30.1 PG (27.0-31.0) Mean Corpuscular Hemoglobin Concent 32.9 G/DL (32.0-36.0) Red Cell Distribution Width 13.7 % (11.6-14.8) Platelet Count 148 K/UL (150-450) L Mean Platelet Volume 8.5 FL (6.5-10.1) Neutrophils (%) (Auto) 49.4 % (45.0-75.0) Lymphocytes (%) (Auto) 37.0 % (20.0-45.0) Monocytes (%) (Auto) 7.7 % (1.0-10.0) Eosinophils (%) (Auto) 4.7 % (0.0-3.0) H Basophils (%) (Auto) 1.2 % (0.0-2.0) Sodium Level 140 mEQ/L (135-145) Potassium Level 3.9 mEQ/L (3.4-4.9) Chloride Level 97 mEQ/L (98-107) L Carbon Dioxide Level 26 mEQ/L (20-30) Anion Gap 17 (5-15) H Blood Urea Nitrogen 17 mg/dL (7-23) Creatinine 0.8 mg/dL (0.5-0.9) Estimat Glomerular Filtration Rate > 60 mL/min (>60) Glucose Level 102 mg/dL (74-106) Calcium Level 9.6 mg/dL (8.6-10.2) Troponin I < 0.30 ng/mL (<=0.30) Intake and Output 03/14/17 03/15/17 19:00 07:00 Intake Total 640 ml Output Total 640 ml Balance 0 ml Intake Oral 640 ml Output Urine Total 640 ml # Voids 4 3 Objective General: alert, cooperative, no distress, appears stated age Head: normocephalic, without obvious abnormality, atraumatic Eyes: conjunctivae/corneas clear. PERRL, EOM's intact Throat: lips, mucosa, and tongue normal. MMM Neck: supple, symmetrical, trachea midline, and no JVD Lungs: clear to auscultation bilaterally Heart: regular rate and rhythm, S1, S2 normal, no murmur, click, rub or gallop Abdomen: soft, non-tender, non-distended, bowel sounds normal; no masses or organomegaly Extremities: extremities normal, atraumatic, no cyanosis or edema Pulses: 2+ and symmetric Skin: skin color, texture, turgor normal; no rashes or lesions Neurologic: grossly normal, no focal deficits Assessment/Plan Problem List: (1) Hypercholesteremia Assessment & Plan: cont lipitor. (2) Stenosis, spinal, lumbar (3) Knee pain, left Assessment & Plan: await xray results. (4) Depression Assessment & Plan: Continue lexapro, welbutrin and zoloft (5) HTN (hypertension) (6) Chest pain Assessment & Plan: see cardiology note. LVEF=60-65%. Stress test pending per cardiology. Status: not improved HYACINTH TEJADA Mar 15, 2017 12:44
--- NOTE | 2017-03-15 13:30 | Pulmonology Progress Note ---
Assessment/Plan Problems: (1) ACS (acute coronary syndrome) (2) Costochondritis (3) Chronic pain (4) Degenerative disc disease, cervical (5) History of fusion of cervical spine Assessment/Plan laxatives not ready to leave the hospital yet f/u by cardiology dc planning for am Subjective ROS Limited/Unobtainable: No Constitutional: Reports: no symptoms Respiratory: Reports: no symptoms Cardiovascular: Reports: no symptoms Allergies: Coded Allergies: No Known Allergies (Verified Allergy, Mild, 03/28/07) Objective Last 24 Hour Vital Signs Date Time Temp Pulse Resp B/P Pulse Ox O2 Delivery O2 Flow Rate FiO2 03/15/17 11:38 76 03/15/17 11:31 97.1 64 18 110/61 95 Room Air 03/15/17 08:11 84 158/85 03/15/17 08:04 97.3 84 18 158/85 95 Room Air 03/15/17 07:45 94 03/15/17 07:27 82 18 Room Air 03/15/17 04:40 78 152/85 03/15/17 04:34 97.7 77 20 164/88 99 Nasal Cannula 2.0 03/15/17 04:00 78 03/15/17 00:34 98.2 80 20 153/79 98 Room Air 03/15/17 00:00 78 03/14/17 22:42 77 20 139/83 Nasal Cannula 2.0 03/14/17 20:01 97.0 80 20 160/74 97 Room Air 03/14/17 20:00 82 03/14/17 19:36 87 18 Room Air 03/14/17 16:00 81 03/14/17 16:00 97.9 94 18 109/81 95 Room Air Intake and Output 03/14/17 03/15/17 19:00 07:00 Intake Total 640 ml Output Total 640 ml Balance 0 ml Intake Oral 640 ml Output Urine Total 640 ml # Voids 4 3 General Appearance: WD/WN, no acute distress HEENT: normocephalic, atraumatic Respiratory/Chest: chest wall non-tender, normal breath sounds Breasts: no masses Cardiovascular: normal peripheral pulses Abdomen: normal bowel sounds, soft, non tender Genitourinary: normal external genitalia Extremities: no cyanosis Neurologic/Psychiatric: renal dialysis rn II-XII grossly normal Lymphatic: no neck adenopathy Laboratory Tests 03/15/17 05:10: White Blood Count 6.2, Red Blood Count 3.87L, Hemoglobin 11.7L, Hematocrit 35.4L , Mean Corpuscular Volume 91, Mean Corpuscular Hemoglobin 30.1, Mean Corpuscular Hemoglobin Concent 32.9, Red Cell Distribution Width 13.7, Platelet Count 148L, Mean Platelet Volume 8.5, Neutrophils (%) (Auto) 49.4, Lymphocytes ( %) (Auto) 37.0, Monocytes (%) (Auto) 7.7, Eosinophils (%) (Auto) 4.7H, Basophils (%) (Auto) 1.2 03/15/17 05:40: Sodium Level 140, Potassium Level 3.9, Chloride Level 97L, Carbon Dioxide Level 26, Anion Gap 17H, Blood Urea Nitrogen 17, Creatinine 0.8, Estimat Glomerular Filtration Rate > 60, Glucose Level 102, Calcium Level 9.6, Troponin I < 0.30 Current Medications Medications (Trade) Dose Ordered Sig/Star Route PRN Reason Start Time Stop Time Status Last Admin Dose Admin Acetaminophen (Tylenol) 650 mg Q4H PRN ORAL FEVER 03/13/17 20:15 04/12/17 20:14 Acetaminophen/ Hydrocodone Bitart ([place] 10/325) 1 ea Q4H PRN ORAL Moderate Pain (Pain Scale 4-6) 03/14/17 12:47 03/20/17 20:14 Albuterol/ Ipratropium (DuoNeb 0.5-3(2.5)mg/3ml) 3 ml EVERY 4 HOURS PRN HHN Shortness of Breath 03/13/17 20:15 03/18/17 20:14 Amlodipine Besylate (Norvasc) 5 mg DAILY ORAL 03/14/17 09:00 04/13/17 08:59 03/15/17 08:11 Aspirin (ASA) 162 mg DAILY ORAL 03/14/17 09:00 04/13/17 08:59 03/15/17 08:11 Atorvastatin Calcium (Lipitor) 40 mg BEDTIME ORAL 03/14/17 21:00 04/13/17 20:59 03/14/17 21:15 Bupropion HCl (Wellbutrin XL) 150 mg BID ORAL 03/14/17 09:00 04/13/17 08:59 03/15/17 08:11 Diltiazem HCl (Cardizem) 10 mg EVERY HOUR PRN IV heart rate more than 120, 03/13/17 20:15 04/12/17 20:14 Enalaprilat (Vasotec) 2.5 mg EVERY 6 HOURS PRN IV sbp more than 160 03/13/17 20:15 04/12/17 20:14 Escitalopram Oxalate (Lexapro) 10 mg DAILY ORAL 03/14/17 09:00 04/13/17 08:59 03/15/17 08:11 Heparin Sodium (Porcine) (Heparin 5000 units/ml) 5,000 units EVERY 12 HOURS SUBQ 03/13/17 21:00 04/12/17 20:59 03/15/17 08:13 Hydromorphone HCl (Dilaudid) 1 mg Q4H PRN IV Severe Pain (Pain Scale 7-10) 03/14/17 12:45 03/21/17 12:44 03/15/17 13:01 Lorazepam (Ativan) 2 mg BID PRN ORAL anxiety 03/14/17 18:45 03/21/17 18:44 03/15/17 07:01 Nitroglycerin (Ntg) 0.4 mg Q 5 MINS PRN SL Prn Chest Pain 03/13/17 20:15 04/12/17 20:14 Ondansetron HCl (Zofran) 4 mg Q6H PRN IVP Nausea & Vomiting 03/13/17 20:15 04/12/17 20:14 Polyethylene Glycol (Miralax) 17 gm DAILYPRN PRN ORAL Constipation 03/13/17 20:15 04/12/17 20:14 03/15/17 04:41 Sennosides (Senokot) 8.6 mg BID ORAL 03/15/17 09:00 04/14/17 08:59 03/15/17 08:54 Sertraline HCl (Zoloft) 100 mg BID ORAL 03/14/17 09:00 04/13/17 08:59 03/15/17 08:11 Temazepam (Restoril) 15 mg HSPRN PRN ORAL Insomnia 03/13/17 20:15 03/20/17 20:14 03/15/17 00:35 DEBBY CHUNG Mar 15, 2017 13:30
[2017-03-15] MEDS ORDERED: Fleet's Mineral Oil Enema RECTAL ONE (14:00)
--- NOTE | 2017-03-15 19:19 | Cardiology Progress Note ---
Assessment/Plan Assessment/Plan chest pain hyperlipidemia htn obeisty hep c chronci back pain anxiety depression trop neg on repat neg reepat ekg tele neg echo did not show any swma ok to dc telel ok to dc home outpt fu Subjective Cardiovascular: Denies: chest pain Respiratory: Denies: shortness of breath Gastrointestinal/Abdominal: Denies: abdominal pain Genitourinary: Denies: burning Subjective pounding head ache Objective Last 24 Hour Vital Signs Date Time Temp Pulse Resp B/P Pulse Ox O2 Delivery O2 Flow Rate FiO2 03/15/17 15:58 92 03/15/17 15:23 97.2 83 18 134/76 95 Room Air 03/15/17 11:38 76 03/15/17 11:31 97.1 64 18 110/61 95 Room Air 03/15/17 08:11 84 158/85 03/15/17 08:04 97.3 84 18 158/85 95 Room Air 03/15/17 07:45 94 03/15/17 07:27 82 18 Room Air 03/15/17 04:40 78 152/85 03/15/17 04:34 97.7 77 20 164/88 99 Nasal Cannula 2.0 03/15/17 04:00 78 03/15/17 00:34 98.2 80 20 153/79 98 Room Air 03/15/17 00:00 78 03/14/17 22:42 77 20 139/83 Nasal Cannula 2.0 03/14/17 20:01 97.0 80 20 160/74 97 Room Air 03/14/17 20:00 82 03/14/17 19:36 87 18 Room Air General Appearance: alert Neck: supple Cardiovascular: normal rate, regular rhythm Respiratory/Chest: lungs clear, normal breath sounds Abdomen: non tender, soft Extremities: no swelling Intake and Output 03/14/17 03/15/17 19:00 07:00 Intake Total 640 ml Output Total 640 ml Balance 0 ml Intake Oral 640 ml Output Urine Total 640 ml # Voids 4 3 Laboratory Tests Test 03/15/17 05:10 03/15/17 05:40 White Blood Count 6.2 K/UL (4.8-10.8) Red Blood Count 3.87 M/UL (4.20-5.40) L Hemoglobin 11.7 G/DL (12.0-16.0) L Hematocrit 35.4 % (37.0-47.0) L Mean Corpuscular Volume 91 FL (80-99) Mean Corpuscular Hemoglobin 30.1 PG (27.0-31.0) Mean Corpuscular Hemoglobin Concent 32.9 G/DL (32.0-36.0) Red Cell Distribution Width 13.7 % (11.6-14.8) Platelet Count 148 K/UL (150-450) L Mean Platelet Volume 8.5 FL (6.5-10.1) Neutrophils (%) (Auto) 49.4 % (45.0-75.0) Lymphocytes (%) (Auto) 37.0 % (20.0-45.0) Monocytes (%) (Auto) 7.7 % (1.0-10.0) Eosinophils (%) (Auto) 4.7 % (0.0-3.0) H Basophils (%) (Auto) 1.2 % (0.0-2.0) Sodium Level 140 mEQ/L (135-145) Potassium Level 3.9 mEQ/L (3.4-4.9) Chloride Level 97 mEQ/L (98-107) L Carbon Dioxide Level 26 mEQ/L (20-30) Anion Gap 17 (5-15) H Blood Urea Nitrogen 17 mg/dL (7-23) Creatinine 0.8 mg/dL (0.5-0.9) Estimat Glomerular Filtration Rate > 60 mL/min (>60) Glucose Level 102 mg/dL (74-106) Calcium Level 9.6 mg/dL (8.6-10.2) Troponin I < 0.30 ng/mL (<=0.30) CHARLETTE MORRIS 12, 2017 19:19
[2017-03-15] MEDS ORDERED: Diltiazem 25mg/5ml IV PRN (22:00)
[2017-03-15] MEDS ORDERED: Nitroglycerin Subl 0.4mg tab (Bottle Of 25) SL PRN (22:00)
[2017-03-15] MEDS ORDERED: LORazepam 1mg tab ORAL PRN (23:33)
[2017-03-16] VITALS: BP 169/84
[2017-03-16] MEDS ORDERED: Enalaprilat 2.5mg/2ml Inj IV PRN
[2017-03-16] MEDS ORDERED: DuoNeb 0.5-3(2.5)mg/3ml neb HHN PRN (01:00)
[2017-03-16] MEDS ORDERED: Norco 10mg/325mg tab ORAL PRN (01:00)
[2017-03-16 04:00] VITALS: BP 125/65
[2017-03-16 07:23] LABS: BASOPHILS % (AUTO) 0.9 % (0.0-2.0); EOSINOPHILS % (AUTO) 3.7 % (0.0-3.0); LYMPHOCYTES % (AUTO) 31.2 % (20.0-45.0); MEAN CORPUSCULAR HEMOGLOBIN 28.5 PG (27.0-31.0); MEAN CORPUSCULAR HGB CONC 31.6 G/DL (32.0-36.0); MEAN CORPUSCULAR VOLUME 90 FL (80-99); MEAN PLATELET VOLUME 8.2 FL (6.5-10.1); MONOCYTES % (AUTO) 6.9 % (1.0-10.0); NEUTROPHILS % (AUTO) 57.3 % (45.0-75.0); PLATELET COUNT 167 K/UL (150-450); RED BLOOD COUNT 3.97 M/UL (4.20-5.40); RED CELL DISTRIBUTION WIDTH 13.7 % (11.6-14.8); WHITE BLOOD COUNT 7.6 K/UL (4.8-10.8)
[2017-03-16 07:38] VITALS: BP 120/65
[2017-03-16 07:56] LABS: TROPONIN I < 0.30 ng/mL (<=0.30)
[2017-03-16 08:00] LABS: ANION GAP 16 (5-15); CALCIUM 9.5 mg/dL (8.6-10.2); CARBON DIOXIDE 27 mEQ/L (20-30); CHLORIDE 95 mEQ/L (98-107); CREATININE 0.9 mg/dL (0.5-0.9); GLOMERULAR FILTRATION RATE > 60 mL/min (>60); HEMOLYSIS 3; POTASSIUM 4.3 mEQ/L (3.4-4.9); SODIUM 138 mEQ/L (135-145)
--- NOTE | 2017-03-16 08:15 | Cardiology Report ---
APPROVED REPORT EKG Measurement Heart [id number] Normal sinus rhythm Normal ECG
--- NOTE | 2017-03-16 08:54 | General Progress Note ---
Assessment/Plan Assessment/Plan (1) Degenerative disc disease, cervical (2) Cervical spondylosis (3) Cervical herniated disc (4) Cervical radiculopathy (5) History of fusion of cervical spine We will continue Rodney Pt was d/w Dr. Tucker and he concurred. Subjective Date patient seen: Mar 16, 2017 Time patient seen: 07:45 - am Allergies: Coded Allergies: No Known Allergies (Verified Allergy, Mild, 03/28/07) Subjective Constitutional: Denies: chills, diaphoresis, fever, malaise, no symptoms, other , weakness HEENT: Denies: blurred vision, double vision, ear discharge, ear pain, eye pain , mouth pain, mouth swelling, no symptoms, nose congestion, nose pain, other, tearing, throat pain, throat swelling Cardiovascular: Denies: chest pain, edema, irregular heart rate, lightheadedness, no symptoms, other, palpitations, syncope Respiratory: Denies: SOB at rest, SOB with excertion, cough, no symptoms, orthopnea, other, shortness of breath, sputum, stridor, wheezing Gastrointestinal/Abdominal: Denies: abdomen distended, abdominal pain, black stools, blood in stool, constipated, diarrhea, difficulty swallowing, nausea, no symptoms, other, poor appetite, poor fluid intake, rectal bleeding, tarry stools, vomiting Genitourinary: Denies: burning, discharge, flank pain, frequency, hematuria, incontinence, no symptoms, other, pain, urgency Neurologic/Psychiatric: Denies: anxiety, depressed, emotional problems, headache, no symptoms, numbness, other, paresthesia, pre-existing deficit, seizure, tingling, tremors, weakness Endocrine: Denies: excessive sweating, flushing, increased hunger, increased thirst, increased urine, intolerance to cold, intolerance to heat, no symptoms, other, unexplained weight gain, unexplained weight Subjective The pain is tolerated on the medications. She has no new complaints Objective Last 24 Hour Vital Signs Date Time Temp Pulse Resp B/P Pulse Ox O2 Delivery O2 Flow Rate FiO2 03/16/17 08:32 77 120/65 03/16/17 07:38 98.4 77 20 120/65 93 Room Air 03/16/17 07:20 85 20 Room Air 03/16/17 04:00 98.9 78 20 125/65 94 Room Air 03/16/17 00:00 97.8 91 20 169/84 94 Room Air 03/15/17 22:15 98.6 85 20 134/87 93 Room Air 03/15/17 20:05 97.5 83 18 119/69 96 Room Air 03/15/17 20:00 80 03/15/17 19:58 88 20 Room Air 03/15/17 15:58 92 03/15/17 15:23 97.2 83 18 134/76 95 Room Air 03/15/17 11:38 76 03/15/17 11:31 97.1 64 18 110/61 95 Room Air Intake and Output 03/15/17 03/16/17 19:00 07:00 Intake Total 480 ml 470 ml Balance 480 ml 470 ml Intake Oral 480 ml 470 ml # Voids 3 5 # Bowel Movements 7 Laboratory Tests 03/16/17 04:50: White Blood Count 7.6, Red Blood Count 3.97L, Hemoglobin 11.3L, Hematocrit 35.8L , Mean Corpuscular Volume 90, Mean Corpuscular Hemoglobin 28.5, Mean Corpuscular Hemoglobin Concent 31.6L, Red Cell Distribution Width 13.7, Platelet Count 167, Mean Platelet Volume 8.2, Neutrophils (%) (Auto) 57.3, Lymphocytes (%) (Auto) 31.2, Monocytes (%) (Auto) 6.9, Eosinophils (%) (Auto) 3.7H, Basophils (%) (Auto) 0.9, Sodium Level 138, Potassium Level 4.3, Chloride Level 95L, Carbon Dioxide Level 27, Anion Gap 16H, Blood Urea Nitrogen 23, Creatinine 0.9, Estimat Glomerular Filtration Rate > 60, Glucose Level 125H, Calcium Level 9.5, Troponin I < 0.30 Height (Feet): 5 Height (Inches): 6.00 Weight (Pounds): 186 Objective General Appearance: no apparent distress, alert EENT: normal ENT inspection Neck: normal alignment, supple Cardiovascular: normal rate, regular rhythm Respiratory/Chest: lungs clear, normal breath sounds Abdomen: non tender, soft Edema: no edema noted Arm (L), no edema noted Arm (R), no edema noted Leg (L), no edema noted Leg (R), no edema noted Pedal (L), no edema noted Pedal (R), no edema noted Generalized Neurologic: alert, oriented x 3 Skin: normal pigmentation LISBET KEANE Mar 16, 2017 08:54
[2017-03-16] MEDS ORDERED: Heparin 5000 units/ml inj SUBQ SCH (09:00)
[2017-03-16] MEDS ORDERED: BuPROPion XL 150mg tab ORAL SCH (09:00)
[2017-03-16] MEDS ORDERED: Sertraline 100mg tab ORAL SCH (09:00)
[2017-03-16] MEDS ORDERED: Aspirin Baby 81mg ORAL SCH (09:00)
--- NOTE | 2017-03-16 10:35 | Diagnostic Imaging Report ---
Indication: PAIN Technique: 3 views of the left knee Comparison: 11/09/2012 Findings:There is marked medial compartment degenerative joint space narrowing, moderate lateral degenerative joint space narrowing, which has progressed significantly since the previous study. There are also progressive degenerative changes of the patellofemoral compartment, with probable progression of joint space narrowing and definite progression of proliferative change. No definite suprapatellar effusion. Sclerotic lesion of the distal femoral medullary space is consistent with old bone infarct, also previously described. No acute fractures. No dislocations. 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
[2017-03-16 11:39] VITALS: BP 116/65
[2017-03-16] MEDS ORDERED: NORCO 5-325 TA1 EAC1 ORAL (15:48)
--- NOTE | 2017-03-16 15:52 | Pulmonology Progress Note ---
Assessment/Plan Problems: (1) ACS (acute coronary syndrome) (2) Costochondritis (3) Chronic pain (4) Degenerative disc disease, cervical (5) History of fusion of cervical spine Assessment/Plan pain is controlled laxatives not ready to leave the hospital yet f/u by cardiology dc planning for today a prescription for [place] given Subjective ROS Limited/Unobtainable: No Interval Events: pain is better controlled Allergies: Coded Allergies: No Known Allergies (Verified Allergy, Mild, 03/28/07) Objective Last 24 Hour Vital Signs Date Time Temp Pulse Resp B/P Pulse Ox O2 Delivery O2 Flow Rate FiO2 03/16/17 11:39 98.1 81 20 116/65 97 Room Air 03/16/17 08:32 77 120/65 03/16/17 07:38 98.4 77 20 120/65 93 Room Air 03/16/17 07:20 85 20 Room Air 03/16/17 04:00 98.9 78 20 125/65 94 Room Air 03/16/17 00:00 97.8 91 20 169/84 94 Room Air 03/15/17 22:15 98.6 85 20 134/87 93 Room Air 03/15/17 20:05 97.5 83 18 119/69 96 Room Air 03/15/17 20:00 80 03/15/17 19:58 88 20 Room Air 03/15/17 15:58 92 Intake and Output 03/15/17 03/16/17 19:00 07:00 Intake Total 480 ml 470 ml Balance 480 ml 470 ml Intake Oral 480 ml 470 ml # Voids 3 5 # Bowel Movements 7 General Appearance: WD/WN HEENT: normocephalic, atraumatic Respiratory/Chest: chest wall non-tender, lungs clear Breasts: no masses Cardiovascular: normal peripheral pulses Abdomen: normal bowel sounds, no organomegaly Genitourinary: normal external genitalia Extremities: no cyanosis Skin: no rash Laboratory Tests 03/16/17 04:50: White Blood Count 7.6, Red Blood Count 3.97L, Hemoglobin 11.3L, Hematocrit 35.8L , Mean Corpuscular Volume 90, Mean Corpuscular Hemoglobin 28.5, Mean Corpuscular Hemoglobin Concent 31.6L, Red Cell Distribution Width 13.7, Platelet Count 167, Mean Platelet Volume 8.2, Neutrophils (%) (Auto) 57.3, Lymphocytes (%) (Auto) 31.2, Monocytes (%) (Auto) 6.9, Eosinophils (%) (Auto) 3.7H, Basophils (%) (Auto) 0.9, Sodium Level 138, Potassium Level 4.3, Chloride Level 95L, Carbon Dioxide Level 27, Anion Gap 16H, Blood Urea Nitrogen 23, Creatinine 0.9, Estimat Glomerular Filtration Rate > 60, Glucose Level 125H, Calcium Level 9.5, Troponin I < 0.30 Current Medications Medications (Trade) Dose Ordered Sig/Star Route PRN Reason Start Time Stop Time Status Last Admin Dose Admin Acetaminophen (Tylenol) 650 mg Q4H PRN ORAL FEVER 03/15/17 23:33 04/14/17 23:32 Acetaminophen/ Hydrocodone Bitart ([place] 10/325) 1 ea Q4H PRN ORAL Moderate Pain (Pain Scale 4-6) 03/16/17 01:00 03/23/17 00:59 Albuterol/ Ipratropium (DuoNeb 0.5-3(2.5)mg/3ml) 3 ml EVERY 4 HOURS PRN HHN Shortness of Breath 03/16/17 01:00 03/21/17 00:59 Amlodipine Besylate (Norvasc) 5 mg DAILY ORAL 03/16/17 09:00 04/15/17 08:59 03/16/17 08:32 Aspirin (ASA) 162 mg DAILY ORAL 03/16/17 09:00 04/15/17 08:59 03/16/17 08:32 Atorvastatin Calcium (Lipitor) 40 mg BEDTIME ORAL 03/16/17 21:00 04/15/17 20:59 Bupropion HCl (Wellbutrin XL) 150 mg BID ORAL 03/16/17 09:00 04/15/17 08:59 03/16/17 08:33 Enalaprilat (Vasotec) 2.5 mg EVERY 6 HOURS PRN IV sbp more than 160 03/16/17 00:00 04/15/17 00:00 Escitalopram Oxalate (Lexapro) 10 mg DAILY ORAL 03/16/17 09:00 04/15/17 08:59 03/16/17 08:32 Heparin Sodium (Porcine) (Heparin 5000 units/ml) 5,000 units EVERY 12 HOURS SUBQ 03/16/17 09:00 04/15/17 08:59 Hydromorphone HCl (Dilaudid) 1 mg Q4H PRN IV Severe Pain (Pain Scale 7-10) 03/16/17 00:45 03/23/17 00:44 03/16/17 11:05 Lorazepam (Ativan) 2 mg BID PRN ORAL anxiety 03/15/17 23:33 03/22/17 23:32 03/16/17 08:41 Nitroglycerin (Ntg) 0.4 mg Q 5 MINS PRN SL Prn Chest Pain 03/15/17 22:00 04/14/17 21:59 Ondansetron HCl (Zofran) 4 mg Q6H PRN IVP Nausea & Vomiting 03/15/17 23:33 04/14/17 23:32 Polyethylene Glycol (Miralax) 17 gm DAILYPRN PRN ORAL Constipation 03/16/17 20:15 04/15/17 20:14 Sennosides (Senokot) 8.6 mg BID ORAL 03/16/17 09:00 04/15/17 08:59 Sertraline HCl (Zoloft) 100 mg BID ORAL 03/16/17 09:00 04/15/17 08:59 03/16/17 08:33 Temazepam (Restoril) 15 mg HSPRN PRN ORAL Insomnia 03/16/17 03:30 03/23/17 03:29 DEBBY CHUNG Mar 16, 2017 15:52
[2017-03-16 16:07] VITALS: BP 115/53
--- NOTE | 2017-03-16 18:20 | Cardiology Report ---
APPROVED REPORT EKG Measurement Heart [id number] Sinus tachycardia Otherwise normal ECG
[2017-03-16] MEDS ORDERED: Miralax 17gm pkt ORAL PRN (20:15)
--- NOTE | 2017-03-17 20:30 | Discharge Summary ---
Discharge Summary Hospital Course Date of Admission Mar 13, 2017 at 20:20 Date of Discharge Mar 16, 2017 at 16:46 Admitting Diagnosis Acute Coronary Syndrome HPI Mariposa Aguilar is a 66 year old female who was admitted on Mar 13, 2017 at 20: 20 for Acute Coronary Syndrome Hospital Course [id number] Discharge Discharge Disposition Patient was discharged to Home (01) Discharge Diagnoses: Rosita Han NP Mar 17, 2017 20:30
--- NOTE | 2017-03-18 01:15 | Discharge Summary 2 SIG ---
DATE OF ADMISSION: 03/13/2017 DATE OF DISCHARGE: 03/16/2017 CONSULTANTS: 1. Wesley Cummings M.D. 2. Myah Tucker M.D. BRIEF HOSPITAL COURSE: The patient is a 66-year-old female, who presented to ED complaining of chest pain that started an hour earlier and occurred while at rest. The pain was located to the midsternal, 8/10, and nonradiating. She took aspirin prior to arrival. On evaluation, troponin was negative. EKG showed normal sinus rhythm. She was given nitroglycerin and morphine, and due to underlying risk factors, was admitted for further evaluation and cardiac monitoring. She was followed by Dr. Cummings. EKG was in sinus rhythm with normal QRS axis. Echocardiogram done showed ejection fraction of 60% to 65% with no aortic regurgitation or mitral regurgitation with diastolic relaxation abnormality. TSH was within normal limits and cardiac enzymes were negative. The patient has chronic obstructive pulmonary disease and uses inhalers, unlikely to be able to tolerate adenosine Cardiolite stress test. The patient was advised need to follow up with PMD and Cardiology as outpatient. She was also given Dilaudid and Beatty by painter sign maintenance. She was cleared for discharge home and was continued on Lipitor and aspirin. The patient was eventually discharged. The patient was discharged to continue Crestor and the rest of medications. FINAL DIAGNOSES: 1. Costochondritis. 2. Chronic pain. 3. Degenerative disk disease, cervical area. 4. Hyperlipidemia. 5. Hypertension. 6. Obesity. 7. Hepatitis C. 8. Anxiety. 9. Depression. Jonathan Cochran M.D. I have been assigned to dictate discharge summary on this account and I was not involved in the patient's management. Rosita Han N.P. DR: ANTONIA JOB#: [id number] CC:
== END 2017-03-16 16:46 | disposition home or self-care (01) | DRG 206 ==
LOC: EMR 18:20 → EDBEDREQ 19:22 → 2E 20:20 → 3E 03-15 21:59
DX: M94.0 Chondrocostal junction syndrome [Tietze] (principal); J44.9 Chronic obstructive pulmonary disease, unspecified; I10 Essential (primary) hypertension; G89.29 Other chronic pain; E78.5 Hyperlipidemia, unspecified; E66.9 Obesity, unspecified; B19.20 Unspecified viral hepatitis C without hepatic coma; F41.9 Anxiety disorder, unspecified; F32.9 Major depressive disorder, single episode, unspecified; M19.90 Unspecified osteoarthritis, unspecified site; F17.200 Nicotine dependence, unspecified, uncomplicated; M54.9 Dorsalgia, unspecified; M50.10 Cervical disc disorder with radiculopathy, unspecified cervical region; Z98.1 Arthrodesis status; M48.06 Spinal stenosis, lumbar region
CPT/HCPCS: 36415; 71010; 80048; 80053; 80061; 82550; 82553; 83880; 84443; 84484; 85025; 85610; 85730; 86140; 93005; 93306; 94664

== ENCOUNTER 2017-05-05 15:12 | Outpatient (CLI) | payer MEDICARE, OTHER ==
[~2017-05-05 15:12] MED LIST changes: +AMLODIPINE BESYL5 MG ORAL; +ASPIR 8181 MG ORAL; +CRESTOR10 M2 ORAL; +NORCO 5-325 TA1 EAC1 ORAL; +WELLBUTRIN XL150 MG ORAL; +ZOLOFT100 MG ORAL
== END 2017-05-05 17:12 | disposition home or self-care (01) ==
LOC: LAB 15:12
DX: R73.9 Hyperglycemia, unspecified (principal)
CPT/HCPCS: 36415; 83036

== ENCOUNTER 2017-05-13 08:33 | Inpatient (IN) | payer MEDICARE, OTHER ==
[~2017-05-13] VITALS: Ht 165.1 cm; Wt 74.8 kg
[2017-05-13] MEDS ORDERED: Ipratropium 0.02% Inh Soln 2.5ml UD HHN ONE (08:45)
[2017-05-13] MEDS ORDERED: Aspirin Baby 81mg ONE (08:46)
[2017-05-13] MEDS ORDERED: Aspirin Baby 81mg ORAL ONE (09:00)
[2017-05-13 09:08] VITALS: BP 155/80
--- NOTE | 2017-05-13 09:10 | Emergency Room Report ---
History of Present Illness General Chief Complaint: Chest Pain Source: Patient, Medical Record Present Illness HPI Patient is 66-year-old female who presented after increased chest tightness. Patient prior history of COPD. The patient reports having difficulty breathing and chest tightness. Patient had prior history of cardiac disease and hypertension. She denied any fever. She had nonproductive cough. Patient reported having some in increased shortness of breath. She denied any leg pain or swelling. Allergies: Coded Allergies: No Known Allergies (Verified Allergy, Mild, 03/28/07) Patient History Past Medical History: see triage record Last Menstrual Period: menopause Now: No Reviewed Nursing Documentation: PMH: Agreed, PSxH: Agreed Nursing Documentation-PMH Past Medical History: No History, Except For Hx Cardiac Problems: Yes Hx Hypertension: Yes Hx Pacemaker: No Hx Asthma: No Hx COPD: Yes Hx Diabetes: No Hx Cancer: No Hx Gastrointestinal Problems: No Hx Dialysis: No Hx Neurological Problems: No Hx Cerebrovascular Accident: No Hx Seizures: No Review of Systems All Other Systems: negative except mentioned in HPI Physical Exam Sp02 EP Interpretation: reviewed, normal General Appearance: normal inspection, well appearing, no apparent distress, alert, GCS 15, Chronically Ill Head: atraumatic ENT: normal ENT inspection, hearing grossly normal, normal voice Neck: normal inspection, full range of motion, supple, no bony tend Respiratory: normal inspection, no respiratory distress, no retraction, speaking full sentences, wheezing Cardiovascular #1: regular rate, rhythm, no edema Gastrointestinal: normal inspection, normal bowel sounds, non tender, soft, no guarding, no hernia Genitourinary: no CVA tenderness Musculoskeletal: normal inspection, back normal, normal range of motion Neurologic: normal inspection, alert, oriented x3, responsive, inspector balance truing III-XII nml as tested, speech normal Psychiatric: normal inspection, judgement/insight normal, mood/affect normal Skin: normal inspection, normal color, no rash Medical Decision Making Diagnostic Impression: Primary Impression: COPD exacerbation Additional Impressions: Chronic pain Cervical spondylosis ER Course Patient presented for shortness of breath.Differential included but was not limited to anemia, pneumonia, pneumothorax, myocardial infarction, pericardial effusion, congestive heart failure, acidosis. Because of complexity of patient' s case laboratory testing and imaging studies were ordered. The patient was given aspirin by mouth. Patient was noted to have no evidence of swelling. She was given breathing treatmentsThe patient's exam and history consistent with a COPD exacerbation.Dr. Cochran was contacted for inpatient management due to complexity of medical condition. Labs Test 05/13/17 08:40 05/13/17 08:58 White Blood Count 6.8 K/UL (4.8-10.8) Red Blood Count 4.04 M/UL (4.20-5.40) Hemoglobin 12.7 G/DL (12.0-16.0) Hematocrit 38.2 % (37.0-47.0) Mean Corpuscular Volume 95 FL (80-99) Mean Corpuscular Hemoglobin 31.5 PG (27.0-31.0) Mean Corpuscular Hemoglobin Concent 33.2 G/DL (32.0-36.0) Red Cell Distribution Width 13.0 % (11.6-14.8) Platelet Count 165 K/UL (150-450) Mean Platelet Volume 10.4 FL (6.5-10.1) Neutrophils (%) (Auto) 53.2 % (45.0-75.0) Lymphocytes (%) (Auto) 36.4 % (20.0-45.0) Monocytes (%) (Auto) 5.8 % (1.0-10.0) Eosinophils (%) (Auto) 3.0 % (0.0-3.0) Basophils (%) (Auto) 1.7 % (0.0-2.0) EKG Diagnostic Results Rate: normal Rhythm: NSR ST Segments: no acute changes Rhythm Strip Diag. Results EP Interpretation: yes Rhythm: NSR, no PVC's, no ectopy Status: improved Disposition: ADMITTED INPATIENT Condition: Matt Rosas May 13, 2017 09:10
[2017-05-13 09:19] LABS: BASOPHILS % (AUTO) 1.7 % (0.0-2.0); LYMPHOCYTES % (AUTO) 36.4 % (20.0-45.0); MEAN CORPUSCULAR HEMOGLOBIN 31.5 PG (27.0-31.0); MEAN CORPUSCULAR HGB CONC 33.2 G/DL (32.0-36.0); MEAN CORPUSCULAR VOLUME 95 FL (80-99); MEAN PLATELET VOLUME 10.4 FL (6.5-10.1); MONOCYTES % (AUTO) 5.8 % (1.0-10.0); NEUTROPHILS % (AUTO) 53.2 % (45.0-75.0); PLATELET COUNT 165 K/UL (150-450); RED BLOOD COUNT 4.04 M/UL (4.20-5.40); WHITE BLOOD COUNT 6.8 K/UL (4.8-10.8)
[2017-05-13 09:32] LABS: ALANINE AMINOTRANSFERASE 18 U/L (3-33); ALBUMIN/GLOBULIN RATIO 1.6 (1.0-2.7); ANION GAP 10 (5-15); ASPARTATE AMINO TRANSFERASE 26 U/L (5-40); CALCIUM 9.6 mg/dL (8.6-10.2); CARBON DIOXIDE 29 mEQ/L (20-30); CHLORIDE 102 mEQ/L (98-107); CREATININE 0.9 mg/dL (0.5-0.9); GLOMERULAR FILTRATION RATE > 60 mL/min (>60); HEMOLYSIS 66; POTASSIUM 4.5 mEQ/L (3.4-4.9); SODIUM 141 mEQ/L (135-145); TOTAL PROTEIN 7.1 g/dL (6.6-8.7)
[2017-05-13 09:33] LABS: TROPONIN I < 0.30 ng/mL (<=0.30)
[2017-05-13 09:43] LABS: CKMB < 1.5 ng/mL (< 3.8)
[2017-05-13] MEDS ORDERED: Solu-MEDROL 125mg Inj IVP ONE (09:45)
[2017-05-13] MEDS: Albuterol ud Inhalation HHN SCH ×3 (09:46→10:09)
[2017-05-13 10:18] LABS: APPEARANCE,URINE SLIGHTLY CLOUDY; KETONES,URINE NEGATIVE (NEGATIVE); LEUKOCYTE ESTERASE ,URINE 1+ (NEGATIVE); NITRITE,URINE NEGATIVE (NEGATIVE); PH,URINE 7 (4.5-8.0); PROTEIN,URINE NEGATIVE (NEGATIVE); UROBILINOGEN,URINE 1 MG/DL (0.0-1.0)
[2017-05-13 10:27] LABS: AMORPHOUS SEDIMENT,UR MODERATE /LPF; BACTERIA,URINE FEW /HPF; MUCUS,URINE FEW /LPF (NONE/OCC); RBC,URINE 0-2 /HPF (0 - 2); SQUAMOUS EPITHELIAL CELL,UR MODERATE /LPF (NONE/OCC); WBC,URINE 0-2 /HPF (0 - 2)
[2017-05-13 10:30] VITALS: BP 164/69
[2017-05-13] MEDS ORDERED: Morphine Sulfate 4mg/ml Inj IVP ONE (10:45)
[2017-05-13] MEDS ORDERED: Sodium Bicarbonate 50ml Carp IV ONE (10:45)
[2017-05-13] MEDS ORDERED: Sodium Polystyrene Sulfonate Enema RECTAL ONE (10:45)
[2017-05-13] MEDS ORDERED: Calcium Chloride 100mg/ml Vial IVP ONE (10:45)
[2017-05-13 12:18] VITALS: BP 159/82
[2017-05-13] MEDS ORDERED: LORazepam Inj 2mg/ml 1ml IV PRN (12:30)
[2017-05-13] MEDS ORDERED: Morphine Sulfate 2mg/ml Inj IVP PRN (12:30)
[2017-05-13] MEDS ORDERED: DuoNeb 0.5-3(2.5)mg/3ml neb HHN PRN (12:30)
[2017-05-13] MEDS ORDERED: Nitroglycerin Subl 0.4mg tab (Bottle Of 25) SL PRN (12:30)
[2017-05-13] MEDS ORDERED: Promethazine/Codeine 5ml UD ORAL PRN (12:30)
[2017-05-13] MEDS ORDERED: Ketorolac 30mg Inj IV PRN (12:30)
--- NOTE | 2017-05-13 12:53 | History and Physical ---
History of Present Illness General Reason for Hospitalization: Chest Pain Present Illness Allergies: Coded Allergies: No Known Allergies (Verified Allergy, Mild, 03/28/07) Medication History Scheduled Amlodipine Besylate* (Amlodipine Besylate*), 5 MG ORAL DAILY, (Reported) Aspirin* (Aspir 81*), 81 MG ORAL DAILY, (Reported) Bupropion Hcl* (Wellbutrin Xl*), 150 MG ORAL BID, (Reported) Escitalopram Oxalate* (Lexapro*), 10 MG ORAL DAILY Hydrochlorothiazide* (Hydrochlorothiazide*), 25 MG ORAL DAILY, (Reported) Lorazepam* (Ativan*), 2 MG ORAL BID, (Reported) Rosuvastatin Calcium* (Crestor*), MG ORAL QHS, (Reported) Sertraline Hcl* (Zoloft*), 200 MG ORAL DAILY, (Reported) Scheduled PRN Hydrocodone Bit/Acetaminophen 5-325* ([place] 5-325 Tablet*), 1 TAB ORAL Q6HR PRN for For Pain, (Reported) Hydrocodone/Acetaminophen (Hydrocodon-Acetaminophn 10-325), 1 TAB ORAL Q4H PRN for For Pain, (Reported) Patient History Healthcare decision maker Resuscitation status Advanced Directive on File Physical Exam Last 24 Hour Vital Signs Date Time Temp Pulse Resp B/P Pulse Ox O2 Delivery O2 Flow Rate FiO2 05/13/17 12:18 97.5 78 19 159/82 95 Room Air 05/13/17 11:33 85 15 164/70 98 Room Air 05/13/17 11:12 98.2 05/13/17 10:30 77 16 164/69 99 Room Air 05/13/17 09:50 79 16 98 Room Air 05/13/17 09:49 21 05/13/17 09:48 75 16 98 Room Air 21 05/13/17 09:47 75 16 Room Air 21 05/13/17 09:08 85 18 155/80 99 Room Air 05/13/17 08:55 83 16 Room Air Laboratory Tests Test 05/13/17 08:58 05/13/17 09:35 White Blood Count 6.8 K/UL (4.8-10.8) Red Blood Count 4.04 M/UL (4.20-5.40) L Hemoglobin 12.7 G/DL (12.0-16.0) Hematocrit 38.2 % (37.0-47.0) Mean Corpuscular Volume 95 FL (80-99) Mean Corpuscular Hemoglobin 31.5 PG (27.0-31.0) H Mean Corpuscular Hemoglobin Concent 33.2 G/DL (32.0-36.0) Red Cell Distribution Width 13.0 % (11.6-14.8) Platelet Count 165 K/UL (150-450) Mean Platelet Volume 10.4 FL (6.5-10.1) H Neutrophils (%) (Auto) 53.2 % (45.0-75.0) Lymphocytes (%) (Auto) 36.4 % (20.0-45.0) Monocytes (%) (Auto) 5.8 % (1.0-10.0) Eosinophils (%) (Auto) 3.0 % (0.0-3.0) Basophils (%) (Auto) 1.7 % (0.0-2.0) Prothrombin Time 10.0 SEC (9.30-11.50) Prothromb Time International Ratio 1.0 (0.9-1.1) Activated Partial Thromboplast Time 26 SEC (23-33) Sodium Level 141 mEQ/L (135-145) Potassium Level 4.5 mEQ/L (3.4-4.9) Chloride Level 102 mEQ/L (98-107) Carbon Dioxide Level 29 mEQ/L (20-30) Anion Gap 10 (5-15) Blood Urea Nitrogen 12 mg/dL (7-23) Creatinine 0.9 mg/dL (0.5-0.9) Estimat Glomerular Filtration Rate > 60 mL/min (>60) Glucose Level 112 mg/dL (74-106) H Calcium Level 9.6 mg/dL (8.6-10.2) Total Bilirubin 0.4 mg/dL (0.0-1.2) Aspartate Amino Transf (AST/SGOT) 26 U/L (5-40) Alanine Aminotransferase (ALT/SGPT) 18 U/L (3-33) Alkaline Phosphatase 70 U/L (35-104) Total Creatine Kinase 77 U/L (26-140) Creatine Kinase MB < 1.5 ng/mL (< 3.8) Creatine Kinase MB Relative Index Troponin I < 0.30 ng/mL (<=0.30) Pro-B-Type Natriuretic Peptide 124 pg/mL (0-125) Total Protein 7.1 g/dL (6.6-8.7) Albumin 4.4 g/dL (3.5-5.2) Globulin 2.7 g/dL Albumin/Globulin Ratio 1.6 (1.0-2.7) Urine Color Yellow Urine Appearance Slightly cloudy Urine pH 7 (4.5-8.0) Urine Specific [place] 1.010 (1.005-1.035) Urine Protein Negative (NEGATIVE) Urine Glucose (UA) Negative (NEGATIVE) Urine Ketones Negative (NEGATIVE) Urine Occult Blood Negative (NEGATIVE) Urine Nitrite Negative (NEGATIVE) Urine Bilirubin Negative (NEGATIVE) Urine Urobilinogen 1 MG/DL (0.0-1.0) H Urine Leukocyte Esterase 1+ (NEGATIVE) H Urine RBC 0-2 /HPF (0 - 2) Urine WBC 0-2 /HPF (0 - 2) Urine Squamous Epithelial Cells Moderate /LPF (NONE/OCC) H Urine Amorphous Sediment Moderate /LPF (NONE) H Urine Bacteria Few /HPF (NONE) Urine Mucus Few /LPF (NONE/OCC) H Urine Opiates Screen Negative (NEGATIVE) Urine Barbiturates Screen Negative (NEGATIVE) Phencyclidine (PCP) Screen Negative (NEGATIVE) Urine Amphetamines Screen Negative (NEGATIVE) Urine Benzodiazepines Screen Negative (NEGATIVE) Urine Cocaine Screen Negative (NEGATIVE) Urine Marijuana (THC) Screen Negative (NEGATIVE) Height (Feet): 5 Height (Inches): 6.00 Weight (Pounds): 165 Medications Current Medications Medications (Trade) Dose Ordered Sig/Star Route PRN Reason Start Time Stop Time Status Last Admin Dose Admin Albuterol/ Ipratropium (DuoNeb 0.5-3(2.5)mg/3ml) 3 ml Q4H PRN HHN dyspnea 05/13/17 12:30 05/18/17 12:29 Amlodipine Besylate (Norvasc) 5 mg DAILY ORAL 05/14/17 09:00 06/13/17 08:59 Aspirin (Ecotrin) 81 mg DAILY ORAL 05/14/17 09:00 06/13/17 08:59 Bupropion HCl (Wellbutrin XL) 150 mg BID ORAL 05/13/17 18:00 06/12/17 17:59 Dextrose STAT PRN IV Hypoglycemia 05/13/17 12:30 9/9/17 12:29 Escitalopram Oxalate (Lexapro) 10 mg DAILY ORAL 05/14/17 09:00 06/13/17 08:59 Heparin Sodium (Porcine) (Heparin 5000 units/ml) 5,000 units EVERY 12 HOURS SUBQ 05/13/17 21:00 06/12/17 20:59 Ketorolac Tromethamine (Toradol 30mg) 30 mg Q8H PRN IV moderate pain 4-6 05/13/17 12:30 05/18/17 12:29 Lorazepam (Ativan 2mg/ml 1ml) 0.5 mg Q4H PRN IV For Anxiety 05/13/17 12:30 05/20/17 12:29 Methylprednisolone Sodium Succinate (Solu-MEDROL) 60 mg EVERY 6 HOURS IV 05/13/17 13:00 06/12/17 12:59 Morphine Sulfate (Morphine Sulfate) 2 mg Q4H PRN IVP severe pain 7-10 05/13/17 12:30 05/20/17 12:29 Nitroglycerin (Ntg) 0.4 mg Q5M X 3 DOSES PRN SL Prn Chest Pain 05/13/17 12:30 06/12/17 12:29 Ondansetron HCl (Zofran) 4 mg Q6H PRN IVP Nausea & Vomiting 05/13/17 12:30 06/12/17 12:29 Piperacillin Sod/ Tazobactam Sod/ Dextrose (Zosyn/D5W) 110 ml @ 27.5 mls/hr EVERY 8 HOURS IVPB 05/13/17 14:00 05/18/17 13:59 Promethazine HCl/ Codeine (Phenergan with Codeine) 5 ml Q6H PRN ORAL cough 05/13/17 12:30 06/12/17 12:29 Sertraline HCl (Zoloft) 200 mg DAILY ORAL 05/14/17 09:00 06/13/17 08:59 Temazepam (Restoril) 15 mg HSPRN PRN ORAL Insomnia 05/13/17 21:00 05/20/17 20:59 Theophylline (Paulo-Dur) 100 mg EVERY 12 HOURS ORAL 05/13/17 21:00 06/12/17 20:59 DEBBY CHUNG May 13, 2017 12:53
[2017-05-13] MEDS ORDERED: Solu-MEDROL 125mg Inj IV SCH (13:00)
[2017-05-13] MEDS ORDERED: Piperacillin/Tazobactam 2.25 GM in D5W 55 ML IV SCH (14:00)
[2017-05-13] MEDS ORDERED: Zoysn 3.37gm in D5W 110ml IVPB SCH (14:00)
[2017-05-13] MEDS: LORazepam 1mg tab ORAL SCH ×2 (14:12→21:03)
[2017-05-13] MEDS: HYDROmorphone 1mg/ml Carpuject IVP PRN ×3 (14:32→23:05)
[2017-05-13 15:46] VITALS: BP 161/82
--- NOTE | 2017-05-13 15:48 | Diagnostic Imaging Report ---
Indication: Dyspnea Comparison: 03/13/17 A single view chest radiograph was obtained. Findings: Lungs are hyperexpanded but clear. The axilla is enlarged. Bones are osteopenic. There is fusion hardware projected over the lower cervical spine. Impression: No acute findings
[2017-05-13] MEDS: BuPROPion XL 150mg tab ORAL SCH (17:46)
--- NOTE | 2017-05-13 19:09 | Cardiology Progress Note ---
Assessment/Plan Assessment/Plan chest pain obesity htn (reactive component) anxiety depression copd repat trop this pain is chronic recurrent per herself has had many stres test for this before repeat trop dn ekg may not be simple to perform adenosine cardio stress test may need other test [id number] Objective Last 24 Hour Vital Signs Date Time Temp Pulse Resp B/P Pulse Ox O2 Delivery O2 Flow Rate FiO2 05/13/17 15:46 97.9 100 22 161/82 93 Room Air 05/13/17 15:43 90 05/13/17 15:02 97.5 05/13/17 12:18 97.5 78 19 159/82 95 Room Air 05/13/17 11:49 83 05/13/17 11:33 85 15 164/70 98 Room Air 05/13/17 11:12 98.2 05/13/17 10:30 77 16 164/69 99 Room Air 05/13/17 09:50 79 16 98 Room Air 21 05/13/17 09:49 21 05/13/17 09:48 75 16 98 Room Air 21 05/13/17 09:47 75 16 Room Air 21 05/13/17 09:08 85 18 155/80 99 Room Air 05/13/17 08:55 83 16 Room Air Laboratory Tests Test 05/13/17 08:58 05/13/17 09:35 White Blood Count 6.8 K/UL (4.8-10.8) Red Blood Count 4.04 M/UL (4.20-5.40) L Hemoglobin 12.7 G/DL (12.0-16.0) Hematocrit 38.2 % (37.0-47.0) Mean Corpuscular Volume 95 FL (80-99) Mean Corpuscular Hemoglobin 31.5 PG (27.0-31.0) H Mean Corpuscular Hemoglobin Concent 33.2 G/DL (32.0-36.0) Red Cell Distribution Width 13.0 % (11.6-14.8) Platelet Count 165 K/UL (150-450) Mean Platelet Volume 10.4 FL (6.5-10.1) H Neutrophils (%) (Auto) 53.2 % (45.0-75.0) Lymphocytes (%) (Auto) 36.4 % (20.0-45.0) Monocytes (%) (Auto) 5.8 % (1.0-10.0) Eosinophils (%) (Auto) 3.0 % (0.0-3.0) Basophils (%) (Auto) 1.7 % (0.0-2.0) Prothrombin Time 10.0 SEC (9.30-11.50) Prothromb Time International Ratio 1.0 (0.9-1.1) Activated Partial Thromboplast Time 26 SEC (23-33) Sodium Level 141 mEQ/L (135-145) Potassium Level 4.5 mEQ/L (3.4-4.9) Chloride Level 102 mEQ/L (98-107) Carbon Dioxide Level 29 mEQ/L (20-30) Anion Gap 10 (5-15) Blood Urea Nitrogen 12 mg/dL (7-23) Creatinine 0.9 mg/dL (0.5-0.9) Estimat Glomerular Filtration Rate > 60 mL/min (>60) Glucose Level 112 mg/dL (74-106) H Calcium Level 9.6 mg/dL (8.6-10.2) Total Bilirubin 0.4 mg/dL (0.0-1.2) Aspartate Amino Transf (AST/SGOT) 26 U/L (5-40) Alanine Aminotransferase (ALT/SGPT) 18 U/L (3-33) Alkaline Phosphatase 70 U/L (35-104) Total Creatine Kinase 77 U/L (26-140) Creatine Kinase MB < 1.5 ng/mL (< 3.8) Creatine Kinase MB Relative Index Troponin I < 0.30 ng/mL (<=0.30) Pro-B-Type Natriuretic Peptide 124 pg/mL (0-125) Total Protein 7.1 g/dL (6.6-8.7) Albumin 4.4 g/dL (3.5-5.2) Globulin 2.7 g/dL Albumin/Globulin Ratio 1.6 (1.0-2.7) Urine Color Yellow Urine Appearance Slightly cloudy Urine pH 7 (4.5-8.0) Urine Specific [place] 1.010 (1.005-1.035) Urine Protein Negative (NEGATIVE) Urine Glucose (UA) Negative (NEGATIVE) Urine Ketones Negative (NEGATIVE) Urine Occult Blood Negative (NEGATIVE) Urine Nitrite Negative (NEGATIVE) Urine Bilirubin Negative (NEGATIVE) Urine Urobilinogen 1 MG/DL (0.0-1.0) H Urine Leukocyte Esterase 1+ (NEGATIVE) H Urine RBC 0-2 /HPF (0 - 2) Urine WBC 0-2 /HPF (0 - 2) Urine Squamous Epithelial Cells Moderate /LPF (NONE/OCC) H Urine Amorphous Sediment Moderate /LPF (NONE) H Urine Bacteria Few /HPF (NONE) Urine Mucus Few /LPF (NONE/OCC) H Urine Opiates Screen Negative (NEGATIVE) Urine Barbiturates Screen Negative (NEGATIVE) Phencyclidine (PCP) Screen Negative (NEGATIVE) Urine Amphetamines Screen Negative (NEGATIVE) Urine Benzodiazepines Screen Negative (NEGATIVE) Urine Cocaine Screen Negative (NEGATIVE) Urine Marijuana (THC) Screen Negative (NEGATIVE) CHARLETTE MORRIS May 13, 2017 19:09
[2017-05-13 20:12] VITALS: BP 165/89
[2017-05-13] MEDS ORDERED: Theophylline ER 100mg ORAL SCH (21:00)
[2017-05-13] MEDS: Losartan 50mg tab ORAL SCH (21:03)
[2017-05-13] MEDS: Heparin 5000 units/ml inj SUBQ SCH (21:04)
--- NOTE | 2017-05-13 21:45 | Consultation ---
DATE OF CONSULTATION: 05/13/2017 CARDIOLOGY CONSULTATION CONSULTING PHYSICIAN: Wesley Cummings M.D. REFERRING PHYSICIAN: Jonathan Cochran M.D. REASON FOR REFERRAL: Chest pain and hypertension. HISTORY OF PRESENT ILLNESS: This is a 66-year-old female with history of chest pains on prior occasions apparently who comes in because of chest pains and elevated blood pressure. She is a very nervous patient. She says that she has been having this chest pains starting last night. Similar to which she usually gets and is a deep sharp sensation goes up to the back. This is something that she has had before. In fact she has had several stress tests on prior occasions because of this pain and she is not to have any angiogram or angioplasty recently. She is unable to describe the pain. The pain does get worse when she takes a deep breath or when she coughs, but not when she walks around and does things, although she walks slowly with the help of a walker at times that has a seat. She has had prior stress testing elsewhere for this the same discomfort over the past few years. There is no PND. She has shortness of breath only because of the chest pain. There is no PND. There is no orthopnea. There is occasional dizziness. No heart pounding or palpitations. PAST MEDICAL HISTORY: Positive for history of high blood pressure. She has had history of spine problems for which she has had evaluation and treatment by . No history of diabetes. She has history of fall, unsteady gait, history of anemia, hypertension, and chronic obstructive pulmonary disease. No cancer stroke, hepatitis, or tuberculosis. No asthma or emphysema. No ulcers. No kidney problems. No thyroid problems. She states she is allergic to possibly NSAIDs. She gets swollen but she is able to take aspirin. SOCIAL HISTORY: She smokes and in fact, she is on medications right now. Alcohol, she denies. Drugs, she denies. REVIEW OF SYSTEMS: Gastrointestinal: She has some loose stools. Otherwise a negative. Genitourinary: Negative. Pulmonary: coughing and some wheezing and coughing is now productive of some light half-white sputum. Musculoskeletal: Negative. Neck: Supple. No jugular venous distention. Lungs: Decreased breath sounds noted bilaterally. Cardiac: S1 is normal. S2 is normal. Regular rate and rhythm. No heaves, thrills, or gallops noted. Abdomen: Soft and nontender. Positive bowel sounds. Obese. Extremities: There is no clubbing, cyanosis, nor is there any edema. Neurologic: She is very anxious and nervous. She is awake, alert, responsive, and in no apparent respiratory distress. LABORATORY AND DIAGNOSTIC DATA: Her electrocardiogram shows normal sinus rhythm, no ST-T wave abnormalities of any significant degree. Her white count is 6.8, hemoglobin 12.7, and platelet count of 165,000. Sodium is 141, potassium 4.4, chloride 102, bicarb 29, BUN 12, and creatinine 0.9, and glucose 112. Troponin less than 0.03. ProBNP is only 124. INR is 1.3 and PTT of 26. Tox screen is negative. Urinalysis is 0 to 2 WBCs. Her vital signs, her blood pressures anywhere between 164/72 to 161/82, temperature is 97.9, and pulse is between 78 and 100. Her white count is 6.8, hemoglobin 12.7, and platelet count of 165,000. IMAGING: A chest x-ray was performed that showed no acute changes. Last echocardiogram was in March of this year and that showed ejection fraction 60% to 65%. Grade 1 diastolic dysfunction. ASSESSMENT: 1. Hypertension. 2. Anxiety and depression. 3. Chest pain with history of same and apparently negative previous workup at other hospitals. 4. History of cervical spine disorder and treatment. 5. Obesity. 6. History of hepatitis C. PLAN: Dr. Sanders, this patient was seen in cardiac consultation. The patient's blood pressure appears almost quiet controlled. She has been tried on Norvasc before and she indicates that makes her nervous. Therefore maybe another agent can be used to help with some of her hypertension and anxiety driven and she is already on anxiety medications. I will try her on some low doses of ARB for her blood pressure at the present time to see whether she is able to tolerate that blood pressure is not significantly elevated at this time. Wesley Cummings M.D. DR: BLAZE JOB#: [id number] CC:
[2017-05-14] VITALS (8 sets, daily range): BP systolic 119–149; BP diastolic 57–110
[2017-05-14] MEDS: HYDROmorphone 1mg/ml Carpuject IVP PRN ×5 (03:11→22:43)
[2017-05-14] MEDS ORDERED: Miralax 17gm pkt ORAL PRN (07:00)
[2017-05-14] MEDS: Losartan 50mg tab ORAL SCH ×2 (08:23→21:02)
[2017-05-14] MEDS: Docusate 100mg cap ORAL SCH ×3 (08:24→18:49)
[2017-05-14] MEDS: LORazepam 1mg tab ORAL SCH ×2 (08:25→21:04)
[2017-05-14] MEDS: Aspirin EC 81mg tab ORAL SCH (08:25)
[2017-05-14] MEDS: BuPROPion XL 150mg tab ORAL SCH ×2 (08:26→18:49)
[2017-05-14] MEDS: Sertraline 100mg tab ORAL SCH (08:26)
[2017-05-14] MEDS: Heparin 5000 units/ml inj SUBQ SCH ×2 (08:28→21:10)
[2017-05-14 09:23] LABS: TROPONIN I < 0.30 ng/mL (<=0.30)
--- NOTE | 2017-05-14 10:44 | General Progress Note ---
Assessment/Plan Assessment/Plan (1) Degenerative disc disease, cervical (2) Cervical spondylosis (3) Cervical herniated disc (4) Cervical radiculopathy (5) History of fusion of cervical spine We will continue Dilaudid and start [place] 10/325 PO 1 Tabs Q4H PRN breakthrough pain. D/w Dr. Tucker and he concurred. Thank you for the courtesy of this consultation Subjective Date patient seen: May 14, 2017 Time patient seen: 09:45 - am Allergies: Coded Allergies: No Known Allergies (Verified Allergy, Mild, 03/28/07) Subjective Constitutional: Denies: chills, diaphoresis, fever, malaise, no symptoms, other , weakness HEENT: Denies: blurred vision, double vision, ear discharge, ear pain, eye pain , mouth pain, mouth swelling, no symptoms, nose congestion, nose pain, other, tearing, throat pain, throat swelling Cardiovascular: Denies: chest pain, edema, irregular heart rate, lightheadedness, no symptoms, other, palpitations, syncope Respiratory: Denies: SOB at rest, SOB with excertion, cough, no symptoms, orthopnea, other, shortness of breath, sputum, stridor, wheezing Gastrointestinal/Abdominal: Denies: abdomen distended, abdominal pain, black stools, blood in stool, constipated, diarrhea, difficulty swallowing, nausea, no symptoms, other, poor appetite, poor fluid intake, rectal bleeding, tarry stools, vomiting Genitourinary: Denies: burning, discharge, flank pain, frequency, hematuria, incontinence, no symptoms, other, pain, urgency Neurologic/Psychiatric: Denies: anxiety, depressed, emotional problems, headache, no symptoms, numbness, other, paresthesia, pre-existing deficit, seizure, tingling, tremors, weakness Endocrine: Denies: excessive sweating, flushing, increased hunger, increased thirst, increased urine, intolerance to cold, intolerance to heat, no symptoms, other, unexplained weight gain, unexplained weight loss Hematologic/Lymphatic: Denies: anemia, easy bleeding, easy bruising, no symptoms, other Subjective Pt is a known patient from prior admission now returns due to COPD exacerbation. She continues to c/o chronic neck pain. At this time is on Dilaudid 1mg IV Q4H as needed with minimal pain relief. We were consulted so patient would have adequate pain control while here in the hospital. Objective Last 24 Hour Vital Signs Date Time Temp Pulse Resp B/P Pulse Ox O2 Delivery O2 Flow Rate FiO2 05/14/17 09:04 97.9 93 22 136/74 99 Room Air 05/14/17 08:37 83 16 Room Air 21 05/14/17 08:25 85 119/57 05/14/17 08:23 119/57 05/14/17 08:00 97.9 93 19 136/74 95 Room Air 05/14/17 04:00 85 05/14/17 03:58 98.3 85 19 119/57 95 Room Air 05/14/17 00:30 140/90 05/14/17 00:09 98.4 86 17 143/110 97 Room Air 05/14/17 00:00 84 05/13/17 21:03 165/89 05/13/17 20:12 98.7 98 18 165/89 98 Room Air 05/13/17 20:00 101 05/13/17 19:40 95 16 Room Air 21 05/13/17 19:22 97.9 05/13/17 15:46 97.9 100 22 161/82 93 Room Air 05/13/17 15:43 90 05/13/17 12:18 97.5 78 19 159/82 95 Room Air 05/13/17 11:49 83 05/13/17 11:33 85 15 164/70 98 Room Air 05/13/17 11:12 98.2 Intake and Output 05/13/17 05/14/17 19:00 07:00 Intake Total 340 ml Balance 340 ml Intake Oral 340 ml # Voids 2 1 # Bowel Movements 1 Laboratory Tests 05/14/17 08:30: Troponin I < 0.30, Pro-B-Type Natriuretic Peptide 454H Height (Feet): 5 Height (Inches): 6.00 Weight (Pounds): 165 Objective General Appearance: no apparent distress, alert EENT: normal ENT inspection Neck: normal alignment, supple Cardiovascular: normal rate, regular rhythm Respiratory/Chest: lungs clear, normal breath sounds Abdomen: non tender, soft Edema: no edema noted Arm (L), no edema noted Arm (R), no edema noted Leg (L), no edema noted Leg (R), no edema noted Pedal (L), no edema noted Pedal (R), no edema noted Generalized Neurologic: alert, oriented x 3 Skin: normal pigmentation LISBET KEANE May 14, 2017 10:44
[2017-05-14] MEDS ORDERED: HYDROmorphone 1mg/ml Carpuject IVP PRN ×2 (12:55→14:15)
--- NOTE | 2017-05-14 13:10 | Pulmonology Progress Note ---
Assessment/Plan Problems: (1) Costochondritis (2) ACS (acute coronary syndrome) (3) Cervical spondylosis (4) Knee pain, left (5) Degenerative disc disease, cervical (6) Anxiety Assessment/Plan serial ekg, torponin titrate analgeiscs asking for benadryl for night time pt /ot f/u by pain specialist Subjective ROS Limited/Unobtainable: No Interval Events: pain is not controlled yet Allergies: Coded Allergies: No Known Allergies (Verified Allergy, Mild, 03/28/07) Objective Last 24 Hour Vital Signs Date Time Temp Pulse Resp B/P Pulse Ox O2 Delivery O2 Flow Rate FiO2 05/14/17 12:00 97.7 96 22 149/75 98 Room Air 05/14/17 09:04 97.9 93 22 136/74 99 Room Air 05/14/17 08:37 83 16 Room Air 05/14/17 08:25 85 119/57 05/14/17 08:23 119/57 05/14/17 08:00 97.9 93 19 136/74 95 Room Air 05/14/17 08:00 79 05/14/17 04:00 85 05/14/17 03:58 98.3 85 19 119/57 95 Room Air 05/14/17 00:30 140/90 05/14/17 00:09 98.4 86 17 143/110 97 Room Air 05/14/17 00:00 84 05/13/17 21:03 165/89 05/13/17 20:12 98.7 98 18 165/89 98 Room Air 05/13/17 20:00 101 05/13/17 19:40 95 16 Room Air 05/13/17 19:22 97.9 05/13/17 15:46 97.9 100 22 161/82 93 Room Air 05/13/17 15:43 90 Intake and Output 05/13/17 05/14/17 19:00 07:00 Intake Total 340 ml Balance 340 ml Intake Oral 340 ml # Voids 2 1 # Bowel Movements 1 General Appearance: WD/WN HEENT: normocephalic, atraumatic Respiratory/Chest: chest wall non-tender, lungs clear Breasts: no masses Cardiovascular: normal peripheral pulses, normal rate Abdomen: normal bowel sounds, soft, non tender, no scars Extremities: no cyanosis Skin: no ulcers 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 Lymphatic: no neck adenopathy Microbiology Date/Time Source Procedure Growth Status 05/14/17 03:15 Sputum Gram Stain - Final Resulted 05/14/17 03:15 Sputum Sputum Culture Pending Resulted Laboratory Tests 05/14/17 08:30: Troponin I < 0.30, Pro-B-Type Natriuretic Peptide 454H Current Medications Medications (Trade) Dose Ordered Sig/Star Route PRN Reason Start Time Stop Time Status Last Admin Dose Admin Acetaminophen/ Hydrocodone Bitart ([place] 10/325) 1 ea Q4H PRN ORAL moderate breakthrough pain 05/14/17 10:45 05/21/17 10:44 Albuterol/ Ipratropium (DuoNeb 0.5-3(2.5)mg/3ml) 3 ml Q4H PRN HHN dyspnea 05/13/17 12:30 05/18/17 12:29 Amlodipine Besylate (Norvasc) 5 mg DAILY ORAL 05/14/17 09:00 06/13/17 08:59 05/14/17 08:25 Aspirin (Ecotrin) 81 mg DAILY ORAL 05/14/17 09:00 06/13/17 08:59 05/14/17 08:25 Bupropion HCl (Wellbutrin XL) 150 mg BID ORAL 05/13/17 18:00 06/12/17 17:59 05/14/17 08:26 Dextrose (Dextrose 50%) STAT PRN IV Hypoglycemia 05/13/17 12:30 06/12/17 12:29 Docusate Sodium (Colace) 100 mg TID ORAL 05/14/17 09:00 06/13/17 08:59 05/14/17 12:20 Escitalopram Oxalate (Lexapro) 10 mg DAILY ORAL 05/14/17 09:00 06/13/17 08:59 05/14/17 08:25 Heparin Sodium (Porcine) (Heparin 5000 units/ml) 5,000 units EVERY 12 HOURS SUBQ 05/13/17 21:00 06/12/17 20:59 05/14/17 08:28 Hydromorphone HCl (Dilaudid) 1 mg Q4H PRN IVP severe Pain 05/14/17 12:55 05/21/17 12:54 05/14/17 13:04 Lorazepam (Ativan) 2 mg EVERY 12 HOURS ORAL 05/13/17 14:15 05/20/17 14:14 05/14/17 08:25 Losartan Potassium (Cozaar) 50 mg EVERY 12 HOURS ORAL 05/13/17 21:00 06/12/17 20:59 05/14/17 08:23 Nitroglycerin (Ntg) 0.4 mg Q5M X 3 DOSES PRN SL Prn Chest Pain 05/13/17 12:30 06/12/17 12:29 Ondansetron HCl (Zofran) 4 mg Q6H PRN IVP Nausea & Vomiting 05/13/17 12:30 06/12/17 12:29 Polyethylene Glycol (Miralax) 17 gm DAILY PRN ORAL Constipation 05/14/17 07:00 06/13/17 06:59 Promethazine HCl/ Codeine (Phenergan with Codeine) 5 ml Q6H PRN ORAL cough 05/13/17 12:30 06/12/17 12:29 Sertraline HCl (Zoloft) 200 mg DAILY ORAL 05/14/17 09:00 06/13/17 08:59 05/14/17 08:26 Temazepam (Restoril) 15 mg HSPRN PRN ORAL Insomnia 05/13/17 21:00 05/20/17 20:59 DEBBY CHUNG May 14, 2017 13:10
--- NOTE | 2017-05-14 16:38 | Cardiology Progress Note ---
Assessment/Plan Assessment/Plan 1. Hypertension. 2. Anxiety and depression. 3. Chest pain with history of same and apparently negative previous workup at other hospitals. 4. History of cervical spine disorder and treatment. 5. Obesity. 6. History of hepatitis C. repeat trop neg this pain is chronic recurrent per herself has had many stres test for this before ekg neg seems clamer today bop is better Subjective Cardiovascular: Denies: chest pain Respiratory: Denies: shortness of breath Gastrointestinal/Abdominal: Denies: abdominal pain Genitourinary: Denies: burning Subjective poor sleep Objective Last 24 Hour Vital Signs Date Time Temp Pulse Resp B/P Pulse Ox O2 Delivery O2 Flow Rate FiO2 05/14/17 12:00 97.7 96 22 149/75 98 Room Air 05/14/17 09:04 97.9 93 22 136/74 99 Room Air 05/14/17 08:37 83 16 Room Air 21 05/14/17 08:25 85 119/57 05/14/17 08:23 119/57 05/14/17 08:00 97.9 93 19 136/74 95 Room Air 05/14/17 08:00 79 05/14/17 04:00 85 05/14/17 03:58 98.3 85 19 119/57 95 Room Air 05/14/17 00:30 140/90 05/14/17 00:09 98.4 86 17 143/110 97 Room Air 05/14/17 00:00 84 05/13/17 21:03 165/89 05/13/17 20:12 98.7 98 18 165/89 98 Room Air 05/13/17 20:00 101 05/13/17 19:40 95 16 Room Air 05/13/17 19:22 97.9 General Appearance: alert Neck: supple Cardiovascular: normal rate, regular rhythm Respiratory/Chest: lungs clear Abdomen: normal bowel sounds, non tender, soft Extremities: no swelling Intake and Output 05/13/17 05/14/17 19:00 07:00 Intake Total 340 ml Balance 340 ml Intake Oral 340 ml # Voids 2 1 # Bowel Movements 1 Laboratory Tests Test 05/14/17 08:30 Troponin I < 0.30 ng/mL (<=0.30) Pro-B-Type Natriuretic Peptide 454 pg/mL (0-125) H Microbiology Date/Time Source Procedure Growth Status 05/14/17 03:15 Sputum Gram Stain - Final Resulted 05/14/17 03:15 Sputum Sputum Culture Pending Resulted CHARLETTE MORRIS May 14, 2017 16:38
[2017-05-15] VITALS: BP 94/57
[2017-05-15] MEDS: HYDROmorphone 1mg/ml Carpuject IVP PRN ×6 (01:43→20:11)
[2017-05-15 04:00] VITALS: BP 101/49
[2017-05-15 07:47] VITALS: BP 128/87
[2017-05-15] MEDS: Losartan 50mg tab ORAL SCH ×2 (08:58→21:29)
[2017-05-15] MEDS: Docusate 100mg cap ORAL SCH ×5 (08:58→17:31)
[2017-05-15] MEDS: Sertraline 100mg tab ORAL SCH (08:58)
[2017-05-15] MEDS: LORazepam 1mg tab ORAL SCH ×2 (08:59→21:29)
[2017-05-15] MEDS: BuPROPion XL 150mg tab ORAL SCH ×2 (08:59→17:31)
[2017-05-15] MEDS: Aspirin EC 81mg tab ORAL SCH (09:03)
[2017-05-15] MEDS: Heparin 5000 units/ml inj SUBQ SCH ×2 (09:03→21:32)
[2017-05-15 11:40] VITALS: BP 108/61
[2017-05-15] MEDS: Bismuth Subsalicylate 30ml ORAL PRN (11:42)
[2017-05-15] MEDS ORDERED: LORazepam Inj 2mg/ml 1ml IV ONE (13:30)
--- NOTE | 2017-05-15 15:49 | Pulmonology Progress Note ---
Assessment/Plan Problems: (1) Costochondritis (2) ACS (acute coronary syndrome) (3) Cervical spondylosis (4) Knee pain, left (5) Degenerative disc disease, cervical (6) Anxiety Assessment/Plan f/u cardio and pain consult recommendations serial ekg, torponin titrate analgeiscs asking for benadryl for night time pt /ot Subjective ROS Limited/Unobtainable: No Allergies: Coded Allergies: No Known Allergies (Verified Allergy, Mild, 03/28/07) Objective Last 24 Hour Vital Signs Date Time Temp Pulse Resp B/P Pulse Ox O2 Delivery O2 Flow Rate FiO2 05/15/17 12:00 107 05/15/17 11:40 96.3 90 18 108/61 96 Room Air 05/15/17 09:14 85 18 Room Air 05/15/17 08:59 95 128/87 05/15/17 08:58 128/87 05/15/17 08:00 88 05/15/17 07:47 96.4 95 18 128/87 100 Room Air 05/15/17 05:19 97.0 05/15/17 04:00 97.1 88 20 101/49 93 Room Air 05/15/17 04:00 71 05/15/17 00:00 97.0 92 23 94/57 93 Room Air 05/15/17 00:00 91 05/14/17 21:02 127/61 05/14/17 20:00 78 05/14/17 20:00 97.0 80 20 127/61 96 Room Air 05/14/17 19:37 76 18 Room Air 05/14/17 16:00 99 05/14/17 16:00 97.3 81 22 119/59 99 Room Air Intake and Output 05/14/17 05/15/17 19:00 07:00 Intake Total 460 ml 220 ml Balance 460 ml 220 ml Intake Oral 460 ml 220 ml # Voids 3 # Bowel Movements 1 Objective General Appearance: WD/WN HEENT: normocephalic, atraumatic Respiratory/Chest: chest wall non-tender, lungs clear Breasts: no masses Cardiovascular: normal peripheral pulses, normal rate Abdomen: normal bowel sounds, soft, non tender Genitourinary: normal external genitalia Extremities: no cyanosis Skin: no rash 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, 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/affect Lymphatic: no groin adenopathy Microbiology Date/Time Source Procedure Growth Status 05/14/17 03:15 Sputum Gram Stain - Final Resulted 05/14/17 03:15 Sputum Sputum Culture - Preliminary NORMAL UPPER RESPIRATORY FAVIAN PRESENT Resulted Current Medications Medications (Trade) Dose Ordered Sig/Star Route PRN Reason Start Time Stop Time Status Last Admin Dose Admin Acetaminophen/ Hydrocodone Bitart ([place] 10/325) 1 ea Q4H PRN ORAL moderate breakthrough pain 05/14/17 10:45 05/21/17 10:44 Albuterol/ Ipratropium (DuoNeb 0.5-3(2.5)mg/3ml) 3 ml Q4H PRN HHN dyspnea 05/13/17 12:30 05/18/17 12:29 Amlodipine Besylate (Norvasc) 5 mg DAILY ORAL 05/14/17 09:00 06/13/17 08:59 05/15/17 08:59 Aspirin (Ecotrin) 81 mg DAILY ORAL 05/14/17 09:00 06/13/17 08:59 05/15/17 09:03 Bismuth Subsalicylate (Pepto-Bismol) 30 ml Q3H PRN ORAL Diarrhea 05/15/17 10:30 06/14/17 10:29 05/15/17 11:42 Bupropion HCl (Wellbutrin XL) 150 mg BID ORAL 05/13/17 18:00 06/12/17 17:59 05/15/17 08:59 Dextrose (Dextrose 50%) STAT PRN IV Hypoglycemia 05/13/17 12:30 06/12/17 12:29 Diphenhydramine HCl (Benadryl) 50 mg HSPRN PRN ORAL Insomnia 05/14/17 13:15 06/13/17 13:14 05/15/17 03:15 Docusate Sodium (Colace) 100 mg TID ORAL 05/14/17 09:00 06/13/17 08:59 05/15/17 14:11 Escitalopram Oxalate (Lexapro) 10 mg DAILY ORAL 05/14/17 09:00 06/13/17 08:59 05/15/17 08:58 Heparin Sodium (Porcine) (Heparin 5000 units/ml) 5,000 units EVERY 12 HOURS SUBQ 05/13/17 21:00 06/12/17 20:59 05/15/17 09:03 Hydromorphone HCl (Dilaudid) 1.5 mg EVERY 3 HOURS PRN IVP severe Pain 05/14/17 15:00 05/21/17 14:59 05/15/17 12:38 Lorazepam (Ativan) 2 mg EVERY 12 HOURS ORAL 05/13/17 14:15 05/20/17 14:14 05/15/17 08:59 Losartan Potassium (Cozaar) 50 mg EVERY 12 HOURS ORAL 05/13/17 21:00 06/12/17 20:59 05/15/17 08:58 Nicotine (Nicoderm) 1 patch Q24H TDERMAL 05/14/17 16:00 06/13/17 15:59 05/14/17 17:27 Nitroglycerin (Ntg) 0.4 mg Q5M X 3 DOSES PRN SL Prn Chest Pain 05/13/17 12:30 06/12/17 12:29 Ondansetron HCl (Zofran) 4 mg Q6H PRN IVP Nausea & Vomiting 05/13/17 12:30 06/12/17 12:29 05/15/17 10:57 Polyethylene Glycol (Miralax) 17 gm DAILY PRN ORAL Constipation 05/14/17 07:00 06/13/17 06:59 Promethazine HCl/ Codeine (Phenergan with Codeine) 5 ml Q6H PRN ORAL cough 05/13/17 12:30 06/12/17 12:29 Sertraline HCl (Zoloft) 200 mg DAILY ORAL 05/14/17 09:00 06/13/17 08:59 05/15/17 08:58 Temazepam (Restoril) 15 mg HSPRN PRN ORAL Insomnia 05/13/17 21:00 05/20/17 20:59 05/15/17 00:07 DEBBY CHUNG May 15, 2017 15:49
[2017-05-15 15:51] VITALS: BP 113/61
--- NOTE | 2017-05-15 18:41 | Cardiology Progress Note ---
Assessment/Plan Assessment/Plan appears stable from cardiac standpoint Subjective Subjective sleeping, arousable anxious but reports feeling better Objective Last 24 Hour Vital Signs Date Time Temp Pulse Resp B/P Pulse Ox O2 Delivery O2 Flow Rate FiO2 05/15/17 16:00 83 05/15/17 15:51 96.9 89 18 113/61 96 Room Air 05/15/17 12:00 107 05/15/17 11:40 96.3 90 18 108/61 96 Room Air 05/15/17 09:14 85 18 Room Air 05/15/17 08:59 95 128/87 05/15/17 08:58 128/87 05/15/17 08:00 88 05/15/17 07:47 96.4 95 18 128/87 100 Room Air 05/15/17 05:19 97.0 05/15/17 04:00 97.1 88 20 101/49 93 Room Air 05/15/17 04:00 71 05/15/17 00:00 97.0 92 23 94/57 93 Room Air 05/15/17 00:00 91 05/14/17 21:02 127/61 05/14/17 20:00 78 05/14/17 20:00 97.0 80 20 127/61 96 Room Air 05/14/17 19:37 76 18 Room Air General Appearance: no apparent distress, alert EENT: PERRL/EOMI, pharynx normal Neck: no JVD Rhythm: NSR Cardiovascular: regular rhythm, tachycardia Respiratory/Chest: lungs clear Abdomen: soft Extremities: normal capillary refill Intake and Output 05/14/17 05/15/17 19:00 07:00 Intake Total 460 ml 220 ml Balance 460 ml 220 ml Intake Oral 460 ml 220 ml # Voids 3 # Bowel Movements 1 Microbiology Date/Time Source Procedure Growth Status 05/14/17 03:15 Sputum Gram Stain - Final Resulted 05/14/17 03:15 Sputum Sputum Culture - Preliminary NORMAL UPPER RESPIRATORY FAVIAN PRESENT Resulted MAURO GUILLERMO May 15, 2017 18:41
[2017-05-15 19:57] VITALS: BP 124/45
[2017-05-16] VITALS (7 sets, daily range): BP systolic 98–121; BP diastolic 49–67
[2017-05-16] MEDS: Norco 10mg/325mg tab ORAL PRN ×2 (05:08→14:08)
[2017-05-16 07:02] LABS: EOSINOPHILS % (AUTO) 2.8 % (0.0-3.0); MEAN CORPUSCULAR HEMOGLOBIN 30.1 PG (27.0-31.0); MEAN CORPUSCULAR HGB CONC 31.8 G/DL (32.0-36.0); MEAN CORPUSCULAR VOLUME 95 FL (80-99); MEAN PLATELET VOLUME 10.4 FL (6.5-10.1); MONOCYTES % (AUTO) 9.7 % (1.0-10.0); NEUTROPHILS % (AUTO) 53.5 % (45.0-75.0); PLATELET COUNT 144 K/UL (150-450); RED BLOOD COUNT 3.36 M/UL (4.20-5.40); RED CELL DISTRIBUTION WIDTH 13.2 % (11.6-14.8); WHITE BLOOD COUNT 8.9 K/UL (4.8-10.8)
[2017-05-16 07:17] LABS: ALBUMIN/GLOBULIN RATIO 2.3 (1.0-2.7); CALCIUM 8.9 mg/dL (8.6-10.2); CREATININE 1.4 mg/dL (0.5-0.9); GLOMERULAR FILTRATION RATE 45.6 mL/min (>60); MAGNESIUM 2.3 mg/dL (1.7-2.5); PHOSPHORUS 4.2 mg/dL (2.5-4.8)
[2017-05-16] MEDS: Heparin 5000 units/ml inj SUBQ SCH ×2 (09:00→20:58)
[2017-05-16] MEDS: HYDROmorphone 1mg/ml Carpuject IVP PRN ×5 (09:43→23:39)
[2017-05-16] MEDS: BuPROPion XL 150mg tab ORAL SCH ×2 (10:40→18:49)
[2017-05-16] MEDS: LORazepam 1mg tab ORAL SCH ×2 (10:40→20:57)
[2017-05-16] MEDS: Docusate 100mg cap ORAL SCH ×3 (10:40→18:49)
[2017-05-16] MEDS: Losartan 50mg tab ORAL SCH ×2 (10:41→20:57)
[2017-05-16] MEDS: Sertraline 100mg tab ORAL SCH (10:42)
[2017-05-16] MEDS: Aspirin EC 81mg tab ORAL SCH (10:43)
--- NOTE | 2017-05-16 10:49 | Pulmonology Progress Note ---
Assessment/Plan Problems: (1) Costochondritis (2) ACS (acute coronary syndrome) (3) Cervical spondylosis (4) Knee pain, left (5) Degenerative disc disease, cervical (6) Anxiety Assessment/Plan f/u cardio and pain consult recommendations serial ekg, torponin were all negativ titrate analgeiscs asking for benadryl for night time pt /ot Ct of neck for sore throat and fullness in neck, ENT called Subjective ROS Limited/Unobtainable: No Constitutional: Reports: no symptoms HEENT: Repors: no symptoms Respiratory: Reports: no symptoms Allergies: Coded Allergies: No Known Allergies (Verified Allergy, Mild, 03/28/07) Objective Last 24 Hour Vital Signs Date Time Temp Pulse Resp B/P Pulse Ox O2 Delivery O2 Flow Rate FiO2 05/16/17 10:41 119/67 05/16/17 10:39 85 119/67 05/16/17 08:00 97.7 85 20 119/67 92 Room Air 05/16/17 07:58 85 18 Room Air 05/16/17 04:00 99.0 87 18 99/49 94 Room Air 05/16/17 00:00 99.5 95 18 110/58 98 Room Air 05/16/17 00:00 102 05/15/17 21:29 124/45 05/15/17 20:41 98.3 05/15/17 19:57 98.3 98 19 124/45 91 Room Air 05/15/17 19:25 93 18 Room Air 05/15/17 19:05 113 05/15/17 16:00 83 05/15/17 15:51 96.9 89 18 113/61 96 Room Air 05/15/17 12:00 107 05/15/17 11:40 96.3 90 18 108/61 96 Room Air Intake and Output 05/15/17 05/16/17 19:00 07:00 Intake Total 150 ml 100 ml Balance 150 ml 100 ml Intake Oral 150 ml 100 ml # Voids 2 Objective General Appearance: WD/WN HEENT: normocephalic, atraumatic Respiratory/Chest: chest wall non-tender, lungs clear Breasts: no masses Cardiovascular: normal peripheral pulses, normal rate Abdomen: normal bowel sounds, soft, non tender Genitourinary: normal external genitalia Extremities: no cyanosis Skin: no rash 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, normal mood/affect Lymphatic: no groin adenopathy Microbiology Date/Time Source Procedure Growth Status 05/14/17 03:15 Sputum Gram Stain - Final Complete 05/14/17 03:15 Sputum Sputum Culture - Final NORMAL UPPER RESPIRATORY FAVIAN PRESENT Complete Laboratory Tests 05/16/17 05:20: White Blood Count 8.9, Red Blood Count 3.36L, Hemoglobin 10.1L, Hematocrit 31.8L , Mean Corpuscular Volume 95, Mean Corpuscular Hemoglobin 30.1, Mean Corpuscular Hemoglobin Concent 31.8L, Red Cell Distribution Width 13.2, Platelet Count 144L, Mean Platelet Volume 10.4H, Neutrophils (%) (Auto) 53.5, Lymphocytes (%) (Auto) 33.0, Monocytes (%) (Auto) 9.7, Eosinophils (%) (Auto) 2.8, Basophils (%) (Auto) 1.0, Sodium Level 138, Potassium Level 4.0, Chloride Level 98, Carbon Dioxide Level 31H, Anion Gap 9, Blood Urea Nitrogen 32H, Creatinine 1.4H, Estimat Glomerular Filtration Rate 45.6, Glucose Level 97, Calcium Level 8.9, Phosphorus Level 4.2, Magnesium Level 2.3, Total Bilirubin 0.4, Aspartate Amino Transf (AST/SGOT) 23, Alanine Aminotransferase (ALT/SGPT) 17, Alkaline Phosphatase 64, Total Protein 6.0L, Albumin 4.2, Globulin 1.8, Albumin/Globulin Ratio 2.3 Current Medications Medications (Trade) Dose Ordered Sig/Star Route PRN Reason Start Time Stop Time Status Last Admin Dose Admin Acetaminophen/ Hydrocodone Bitart ([place] 10/325) 1 ea Q4H PRN ORAL moderate breakthrough pain 05/14/17 10:45 05/21/17 10:44 05/16/17 05:08 Albuterol/ Ipratropium (DuoNeb 0.5-3(2.5)mg/3ml) 3 ml Q4H PRN HHN dyspnea 05/13/17 12:30 05/18/17 12:29 Amlodipine Besylate (Norvasc) 5 mg DAILY ORAL 05/14/17 09:00 06/13/17 08:59 05/16/17 10:39 Aspirin (Ecotrin) 81 mg DAILY ORAL 05/14/17 09:00 06/13/17 08:59 05/16/17 10:43 Bismuth Subsalicylate (Pepto-Bismol) 30 ml Q3H PRN ORAL Diarrhea 05/15/17 10:30 06/14/17 10:29 05/15/17 11:42 Bupropion HCl (Wellbutrin XL) 150 mg BID ORAL 05/13/17 18:00 06/12/17 17:59 05/16/17 10:40 Dextrose (Dextrose 50%) STAT PRN IV Hypoglycemia 05/13/17 12:30 06/12/17 12:29 Diphenhydramine HCl (Benadryl) 50 mg HSPRN PRN ORAL Insomnia 05/14/17 13:15 06/13/17 13:14 05/15/17 20:11 Docusate Sodium (Colace) 100 mg TID ORAL 05/14/17 09:00 06/13/17 08:59 05/16/17 10:40 Escitalopram Oxalate (Lexapro) 10 mg DAILY ORAL 05/14/17 09:00 06/13/17 08:59 05/16/17 10:41 Heparin Sodium (Porcine) (Heparin 5000 units/ml) 5,000 units EVERY 12 HOURS SUBQ 05/13/17 21:00 06/12/17 20:59 05/15/17 21:32 Hydromorphone HCl (Dilaudid) 1.5 mg EVERY 3 HOURS PRN IVP severe Pain 05/14/17 15:00 05/21/17 14:59 05/16/17 09:43 Lorazepam (Ativan) 2 mg EVERY 12 HOURS ORAL 05/13/17 14:15 05/20/17 14:14 05/16/17 10:40 Losartan Potassium (Cozaar) 50 mg EVERY 12 HOURS ORAL 05/13/17 21:00 06/12/17 20:59 05/16/17 10:41 Nicotine (Nicoderm) 1 patch Q24H TDERMAL 05/14/17 16:00 06/13/17 15:59 05/15/17 16:30 Nitroglycerin (Ntg) 0.4 mg Q5M X 3 DOSES PRN SL Prn Chest Pain 05/13/17 12:30 06/12/17 12:29 Ondansetron HCl (Zofran) 4 mg Q6H PRN IVP Nausea & Vomiting 05/13/17 12:30 06/12/17 12:29 05/15/17 20:12 Polyethylene Glycol (Miralax) 17 gm DAILY PRN ORAL Constipation 05/14/17 07:00 06/13/17 06:59 Promethazine HCl/ Codeine (Phenergan with Codeine) 5 ml Q6H PRN ORAL cough 05/13/17 12:30 06/12/17 12:29 Sertraline HCl (Zoloft) 200 mg DAILY ORAL 05/14/17 09:00 06/13/17 08:59 05/16/17 10:42 Temazepam (Restoril) 15 mg HSPRN PRN ORAL Insomnia 05/13/17 21:00 05/20/17 20:59 05/15/17 00:07 DEBBY CHUNG May 16, 2017 10:49
--- NOTE | 2017-05-16 11:20 | General Progress Note ---
Assessment/Plan Assessment/Plan (1) Degenerative disc disease, cervical (2) Cervical spondylosis (3) Cervical herniated disc (4) Cervical radiculopathy (5) History of fusion of cervical spine We will continue Dilaudid and [place]. D/w Dr. Tucker and he concurred. Subjective Date patient seen: May 16, 2017 Time patient seen: 11:00 - am Allergies: Coded Allergies: No Known Allergies (Verified Allergy, Mild, 03/28/07) Subjective Constitutional: Denies: chills, diaphoresis, fever, malaise, no symptoms, other , weakness HEENT: Denies: blurred vision, double vision, ear discharge, ear pain, eye pain , mouth pain, mouth swelling, no symptoms, nose congestion, nose pain, other, tearing, throat pain, throat swelling Cardiovascular: Denies: chest pain, edema, irregular heart rate, lightheadedness, no symptoms, other, palpitations, syncope Respiratory: Denies: SOB at rest, SOB with excertion, cough, no symptoms, orthopnea, other, shortness of breath, sputum, stridor, wheezing Gastrointestinal/Abdominal: Denies: abdomen distended, abdominal pain, black stools, blood in stool, constipated, diarrhea, difficulty swallowing, nausea, no symptoms, other, poor appetite, poor fluid intake, rectal bleeding, tarry stools, vomiting Genitourinary: Denies: burning, discharge, flank pain, frequency, hematuria, incontinence, no symptoms, other, pain, urgency Neurologic/Psychiatric: Denies: anxiety, depressed, emotional problems, headache, no symptoms, numbness, other, paresthesia, pre-existing deficit, seizure, tingling, tremors, weakness Endocrine: Denies: excessive sweating, flushing, increased hunger, increased thirst, increased urine, intolerance to cold, intolerance to heat, no symptoms, other, unexplained weight gain, unexplained weight loss Hematologic/Lymphatic: Denies: anemia, easy bleeding, easy bruising, no symptoms, other Subjective Pt continues to c/o pain which has been at a moderate and stable level on the [place] and Dilaudid. Objective Last 24 Hour Vital Signs Date Time Temp Pulse Resp B/P Pulse Ox O2 Delivery O2 Flow Rate FiO2 05/16/17 10:41 119/67 05/16/17 10:39 85 119/67 05/16/17 08:00 97.7 85 20 119/67 92 Room Air 05/16/17 08:00 83 05/16/17 07:58 85 18 Room Air 05/16/17 04:00 99.0 87 18 99/49 94 Room Air 05/16/17 00:00 99.5 95 18 110/58 98 Room Air 05/16/17 00:00 102 05/15/17 21:29 124/45 05/15/17 20:41 98.3 05/15/17 19:57 98.3 98 19 124/45 91 Room Air 05/15/17 19:25 93 18 Room Air 05/15/17 19:05 113 05/15/17 16:00 83 05/15/17 15:51 96.9 89 18 113/61 96 Room Air 05/15/17 12:00 107 05/15/17 11:40 96.3 90 18 108/61 96 Room Air Intake and Output 05/15/17 05/16/17 19:00 07:00 Intake Total 150 ml 100 ml Balance 150 ml 100 ml Intake Oral 150 ml 100 ml # Voids 2 Laboratory Tests 05/16/17 05:20: White Blood Count 8.9, Red Blood Count 3.36L, Hemoglobin 10.1L, Hematocrit 31.8L , Mean Corpuscular Volume 95, Mean Corpuscular Hemoglobin 30.1, Mean Corpuscular Hemoglobin Concent 31.8L, Red Cell Distribution Width 13.2, Platelet Count 144L, Mean Platelet Volume 10.4H, Neutrophils (%) (Auto) 53.5, Lymphocytes (%) (Auto) 33.0, Monocytes (%) (Auto) 9.7, Eosinophils (%) (Auto) 2.8, Basophils (%) (Auto) 1.0, Sodium Level 138, Potassium Level 4.0, Chloride Level 98, Carbon Dioxide Level 31H, Anion Gap 9, Blood Urea Nitrogen 32H, Creatinine 1.4H, Estimat Glomerular Filtration Rate 45.6, Glucose Level 97, Calcium Level 8.9, Phosphorus Level 4.2, Magnesium Level 2.3, Total Bilirubin 0.4, Aspartate Amino Transf (AST/SGOT) 23, Alanine Aminotransferase (ALT/SGPT) 17, Alkaline Phosphatase 64, Total Protein 6.0L, Albumin 4.2, Globulin 1.8, Albumin/Globulin Ratio 2.3 Height (Feet): 5 Height (Inches): 6.00 Weight (Pounds): 165 Objective General Appearance: no apparent distress, alert EENT: normal ENT inspection Neck: normal alignment, supple Cardiovascular: normal rate, regular rhythm Respiratory/Chest: lungs clear, normal breath sounds Abdomen: non tender, soft Edema: no edema noted Arm (L), no edema noted Arm (R), no edema noted Leg (L), no edema noted Leg (R), no edema noted Pedal (L), no edema noted Pedal (R), no edema noted Generalized Neurologic: alert, oriented x 3 Skin: normal pigmentation LISBET KEANE May 16, 2017 11:20
[2017-05-16] MEDS: Bismuth Subsalicylate 30ml ORAL PRN (11:56)
[2017-05-16] MEDS ORDERED: Bismuth Subsalicylate 30ml ORAL PRN (16:00)
[2017-05-16] MEDS ORDERED: Promethazine/Codeine 5ml UD ORAL PRN (16:00)
[2017-05-16] MEDS ORDERED: DuoNeb 0.5-3(2.5)mg/3ml neb HHN PRN (16:00)
[2017-05-16] MEDS ORDERED: Nitroglycerin Subl 0.4mg tab (Bottle Of 25) SL PRN (16:00)
--- NOTE | 2017-05-16 17:55 | Cardiology Report ---
APPROVED REPORT EKG Measurement Heart [id number] Normal sinus rhythm Normal ECG
--- NOTE | 2017-05-16 17:59 | Cardiology Report ---
APPROVED REPORT EKG Measurement Heart [id number] Normal sinus rhythm Normal ECG
--- NOTE | 2017-05-16 21:46 | Cardiology Progress Note ---
Assessment/Plan Assessment/Plan stable from cardiac standpoint Subjective Subjective complaining on epigastric pain vomited at night diffculties to swallow and pinful swallow Objective Last 24 Hour Vital Signs Date Time Temp Pulse Resp B/P Pulse Ox O2 Delivery O2 Flow Rate FiO2 05/16/17 20:57 110/59 05/16/17 20:00 98.4 85 18 110/59 91 Room Air 05/16/17 19:27 98.0 05/16/17 19:22 82 16 Room Air 05/16/17 16:00 98.0 87 20 98/52 93 Room Air 05/16/17 12:00 97.9 92 22 121/67 92 Room Air 05/16/17 12:00 92 05/16/17 10:41 119/67 05/16/17 10:39 85 119/67 05/16/17 08:00 97.7 85 20 119/67 92 Room Air 05/16/17 08:00 83 05/16/17 07:58 85 18 Room Air 05/16/17 04:00 99.0 87 18 99/49 94 Room Air 05/16/17 00:00 99.5 95 18 110/58 98 Room Air 05/16/17 00:00 102 General Appearance: no apparent distress, other - anxious EENT: PERRL/EOMI Neck: supple Rhythm: NSR Cardiovascular: normal rate Respiratory/Chest: lungs clear Abdomen: tender Extremities: no swelling, other Intake and Output 05/15/17 05/16/17 19:00 07:00 Intake Total 150 ml 100 ml Balance 150 ml 100 ml Intake Oral 150 ml 100 ml # Voids 2 Laboratory Tests Test 05/16/17 05:20 White Blood Count 8.9 K/UL (4.8-10.8) Red Blood Count 3.36 M/UL (4.20-5.40) L Hemoglobin 10.1 G/DL (12.0-16.0) L Hematocrit 31.8 % (37.0-47.0) L Mean Corpuscular Volume 95 FL (80-99) Mean Corpuscular Hemoglobin 30.1 PG (27.0-31.0) Mean Corpuscular Hemoglobin Concent 31.8 G/DL (32.0-36.0) L Red Cell Distribution Width 13.2 % (11.6-14.8) Platelet Count 144 K/UL (150-450) L Mean Platelet Volume 10.4 FL (6.5-10.1) H Neutrophils (%) (Auto) 53.5 % (45.0-75.0) Lymphocytes (%) (Auto) 33.0 % (20.0-45.0) Monocytes (%) (Auto) 9.7 % (1.0-10.0) Eosinophils (%) (Auto) 2.8 % (0.0-3.0) Basophils (%) (Auto) 1.0 % (0.0-2.0) Sodium Level 138 mEQ/L (135-145) Potassium Level 4.0 mEQ/L (3.4-4.9) Chloride Level 98 mEQ/L (98-107) Carbon Dioxide Level 31 mEQ/L (20-30) H Anion Gap 9 (5-15) Blood Urea Nitrogen 32 mg/dL (7-23) H Creatinine 1.4 mg/dL (0.5-0.9) H Estimat Glomerular Filtration Rate 45.6 mL/min (>60) Glucose Level 97 mg/dL (74-106) Calcium Level 8.9 mg/dL (8.6-10.2) Phosphorus Level 4.2 mg/dL (2.5-4.8) Magnesium Level 2.3 mg/dL (1.7-2.5) Total Bilirubin 0.4 mg/dL (0.0-1.2) Aspartate Amino Transf (AST/SGOT) 23 U/L (5-40) Alanine Aminotransferase (ALT/SGPT) 17 U/L (3-33) Alkaline Phosphatase 64 U/L (35-104) Total Protein 6.0 g/dL (6.6-8.7) L Albumin 4.2 g/dL (3.5-5.2) Globulin 1.8 g/dL Albumin/Globulin Ratio 2.3 (1.0-2.7) Microbiology Date/Time Source Procedure Growth Status 05/14/17 03:15 Sputum Gram Stain - Final Complete 05/14/17 03:15 Sputum Sputum Culture - Final NORMAL UPPER RESPIRATORY FAVIAN PRESENT Complete MAURO GUILLERMO May 16, 2017 21:46
[2017-05-17] VITALS (7 sets, daily range): BP systolic 111–148; BP diastolic 52–74
[2017-05-17] MEDS: HYDROmorphone 1mg/ml Carpuject IVP PRN ×6 (07:32→21:44)
[2017-05-17] MEDS: BuPROPion XL 150mg tab ORAL SCH ×2 (08:15→17:01)
[2017-05-17] MEDS: Docusate 100mg cap ORAL SCH ×3 (08:15→17:01)
[2017-05-17] MEDS: Sertraline 100mg tab ORAL SCH (08:15)
[2017-05-17] MEDS: Losartan 50mg tab ORAL SCH ×2 (08:16→21:28)
[2017-05-17] MEDS: LORazepam 1mg tab ORAL SCH ×2 (08:16→21:29)
[2017-05-17] MEDS: Aspirin EC 81mg tab ORAL SCH (08:17)
[2017-05-17] MEDS: Heparin 5000 units/ml inj SUBQ SCH ×2 (08:21→21:00)
--- NOTE | 2017-05-17 08:32 | General Progress Note ---
Assessment/Plan Assessment/Plan (1) Degenerative disc disease, cervical (2) Cervical spondylosis (3) Cervical herniated disc (4) Cervical radiculopathy (5) History of fusion of cervical spine We will continue Dilaudid and [place]. D/w Dr. Tucker and he concurred. Subjective Date patient seen: May 17, 2017 Time patient seen: 07:00 - am Allergies: Coded Allergies: No Known Allergies (Verified Allergy, Mild, 03/28/07) Subjective Constitutional: Denies: chills, diaphoresis, fever, malaise, no symptoms, other , weakness HEENT: Denies: blurred vision, double vision, ear discharge, ear pain, eye pain , mouth pain, mouth swelling, no symptoms, nose congestion, nose pain, other, tearing Cardiovascular: Denies: chest pain, edema, irregular heart rate, lightheadedness, no symptoms, other, palpitations, syncope Respiratory: Denies: SOB at rest, SOB with excertion, cough, no symptoms, orthopnea, other, shortness of breath, sputum, stridor, wheezing Gastrointestinal/Abdominal: Denies: abdomen distended, abdominal pain, black stools, blood in stool, constipated, diarrhea, difficulty swallowing, nausea, no symptoms, other, poor appetite, poor fluid intake, rectal bleeding, tarry stools, vomiting Genitourinary: Denies: burning, discharge, flank pain, frequency, hematuria, incontinence, no symptoms, other, pain, urgency Neurologic/Psychiatric: Denies: anxiety, depressed, emotional problems, headache, no symptoms, numbness, other, paresthesia, pre-existing deficit, seizure, tingling, tremors, weakness Endocrine: Denies: excessive sweating, flushing, increased hunger, increased thirst, increased urine, intolerance to cold, intolerance to heat, no symptoms, other, unexplained weight gain, unexplained weight loss Hematologic/Lymphatic: Denies: anemia, easy bleeding, easy bruising, no symptoms, other Subjective Pt reports that her pain has been stable and tolerated on the Dilaudid and [place]. Objective Last 24 Hour Vital Signs Date Time Temp Pulse Resp B/P Pulse Ox O2 Delivery O2 Flow Rate FiO2 05/17/17 08:29 99 16 Room Air 05/17/17 08:16 118/69 05/17/17 08:16 103 118/69 05/17/17 08:02 97.9 05/17/17 08:00 97.9 103 20 118/69 89 Room Air 05/17/17 04:00 97.5 91 18 122/74 92 Room Air 05/17/17 00:00 98.1 92 18 148/70 92 Room Air 05/16/17 20:57 110/59 05/16/17 20:00 98.4 85 18 110/59 91 Room Air 05/16/17 19:22 82 16 Room Air 05/16/17 16:00 98.0 87 20 98/52 93 Room Air 05/16/17 12:00 97.9 92 22 121/67 92 Room Air 05/16/17 12:00 92 05/16/17 10:41 119/67 05/16/17 10:39 85 119/67 Intake and Output 05/16/17 05/17/17 19:00 07:00 Intake Total 120 ml Balance 120 ml Intake Oral 120 ml # Voids 5 3 Height (Feet): 5 Height (Inches): 6.00 Weight (Pounds): 165 Objective General Appearance: no apparent distress, alert EENT: normal ENT inspection Neck: normal alignment, supple Cardiovascular: normal rate, regular rhythm Respiratory/Chest: lungs clear, normal breath sounds Abdomen: non tender, soft Edema: no edema noted Arm (L), no edema noted Arm (R), no edema noted Leg (L), no edema noted Leg (R), no edema noted Pedal (L), no edema noted Pedal (R), no edema noted Generalized Neurologic: alert, oriented x 3 Skin: normal pigmentation LISBET KEANE May 17, 2017 08:32
--- NOTE | 2017-05-17 08:40 | Diagnostic Imaging Report ---
Indication: MASS Technique: No IV contrast utilized, reason not stated. Spiral acquisitions obtained through the neck Multiplanar reconstructions were generated. Total dose length product 435 mGycm. CTDIvol(s) 17 mGy. Radiation dose was minimized using automated exposure control Comparison: 06/10/2013 contrast study Findings: Visualized portions of the nasopharynx, the oral pharynx, hypopharynx and larynx are all unremarkable. Symmetrical none enlarged tonsils. No significant adenoid hypertrophy. No significant prevertebral soft tissue swelling. Clear and symmetric parapharyngeal spaces. The trachea appears unremarkable. The included thyroid is unremarkable. The included lung apices are clear. The is proximal thoracic esophagus is mildly dilated fluid and gas-filled, not evident previously. No prevertebral soft tissue swelling. No cervical mass or adenopathy demonstrated. The visualized sinuses are unremarkable except for minimal disease in the sphenoid sinus. The cervical spine demonstrates degenerative spondylosis, with multilevel neural foraminal stenosis and multilevel facet degeneration.. There is anterior fusion of C6 and C7. The disc appears to be at least partially ankylosed. No definite facial soft tissue swelling. Impression: Nonspecific mildly distended gas and fluid filled upper esophagus. Probably on the basis of age-related dysmotility, but downstream obstruction not completely excludable. Correlate with clinical findings No acute process otherwise. Normal upper airway; no findings to suggest etiology of stated clinical history of sore throat Minimal sphenoid sinus disease Degenerative spondylosis and prior anterior C6-[address] scanner at [facility] is accredited by the [employer] and the scans are performed using protocols designed to limit radiation exposure to as low as reasonably achievable to attain images of sufficient resolution adequate for diagnostic evaluation.
[2017-05-17] MEDS: Norco 10mg/325mg tab ORAL PRN ×2 (08:46→17:01)
[2017-05-17] MEDS ORDERED: Miralax 17gm pkt ORAL PRN (09:00)
--- NOTE | 2017-05-17 11:00 | Consultation ---
DATE OF CONSULTATION: 05/17/2017 HEAD AND NECK SURGERY/ENT CONSULTATION REQUESTING PHYSICIAN: Jonathan Cochran M.D. CONSULTING PHYSICIAN: Bill Vanegas M.D. Indication For Consultation: This is a 66-year-old female, who complains of difficulty swallowing on and off for the past two to three years on the right side only. She was admitted to the hospital on 05/13/2017 with chest pain and that workup is still in progress. She did have a CT scan of her neck which the results are pending. They are not available as of right now, which is a 8:35. She did have a culture showing of normal upper respiratory luz. MEDICATIONS: Include Benadryl, Norvasc, Acutrim, Lexapro, MiraLAX, Zoloft, Ativan, Cozaar, Restoril, Wellbutrin, Colace, DuoNeb, Pepto-Bismol, nitroglycerin, NicoDerm, Phenergan with codeine, [place], Dilaudid, aspirin, Colace, and Restoril. PAST MEDICAL HISTORY: Surgically is significant for a cervical neck surgery, which certainly can lead to dysphagia. Her problem list is extensive. It includes COPD, sepsis, urinary tract infection, cervical radiculopathy, bronchitis, cervical herniated disc, depression, hypercholesterolemia, lumbar stenosis, chest pain we noted, hypertension, chronic pain, cervical spondylolysis, anxiety, acute coronary syndrome, left knee pain, degenerative disc, and costochondritis. PHYSICAL EXAMINATION: GENERAL: She is 167.64 cm, 74.843 kg, and BMI 26.6. HEENT: Head, normocephalic. Eyes, PERRLA and EOMI. Lips, tongue, pharynx, and neck all look normal. There is no tenderness in her neck. ASSESSMENT: This is most probably related issues with her cervical spine. Although that CT is pending and I do not have any past records. Having said that I still would do a swallowing study, upper GI to see if there is a reflux issue or a diverticulum. Diverticulum is a less likely reflux also known as GERD, certainly is a high probability or high possibility because of her other issues with her pain medicines. PLAN: I will check back online once these exams are done, if it appears to be an issue with her esophagus either I or a data entry coordinator should deal with that I would be surprised if there was an abscess in her neck causing this especially that it has been happening last two to three years off and on, although periodically possible. Bill Vanegas M.D. DR: SANGEETA JOB#: [id number] CC:
--- NOTE | 2017-05-17 12:10 | GI Initial Consult Note ---
History of Present Illness General Date patient seen: May 17, 2017 Time patient seen: 11:00 Reason for Hospitalization: Chest Pain Referring physician: DEBBY VILLASEÑOR Reason for Consultation: odynophagia Present Illness HPI Patient is 66-year-old female who presented after increased chest tightness. Patient prior history of COPD. The patient reports having difficulty breathing and chest tightness. Patient had prior history of cardiac disease and hypertension. She denied any fever. She had nonproductive cough. Patient reported having some in increased shortness of breath. She denied any leg pain or swelling. GI Consult. HPI as noted above. GI consulted for odynophagia. Pt seen on floor, awake A&O with sitter by bedside c/o of painful swallowing after PO intake. Neck CT noted for possible age-related dysmotility, but otherwise unremarkable. Utox negative. She presents today with anemia. Patient reports having a colonoscopy performed 3 years ago with unremarkable results. Currently requesting Dilaudid for pain. Home Meds Active Scripts Escitalopram Oxalate* (LEXAPRO*) 10 Mg Tablet, 10 MG ORAL DAILY, #1 TAB Prov:Rosita Han [employer]OR TENDER 12/12/15 Reported Medications Hydrocodone Bit/Acetaminophen 5-325* (NORCO 5-325 TABLET*) 1 Each Tablet, 1 TAB ORAL Q6HR Y for For Pain for 30 Days, TAB 03/16/17 Rosuvastatin Calcium* (CRESTOR*) 10 Mg Tablet, MG ORAL QHS, TAB 03/14/17 Sertraline Hcl* (ZOLOFT*) 100 Mg Tablet, 200 MG ORAL DAILY, TAB 03/13/17 Amlodipine Besylate* (AMLODIPINE BESYLATE*) 5 Mg Tablet, 5 MG ORAL DAILY, TAB 03/13/17 Aspirin* (ASPIR 81*) 81 Mg Tablet.dr, 81 MG ORAL DAILY, TAB 03/13/17 Lorazepam* (ATIVAN*) 2 Mg Tablet, 2 MG ORAL BID, TAB 03/13/17 Bupropion Hcl* (WELLBUTRIN XL*) 150 Mg Tab.er.24h, 150 MG ORAL BID for 30 Days, TAB 0 Refills 03/13/17 Hydrocodone/Acetaminophen (Hydrocodon-Acetaminophn 10-325) 1 Ea Tab, 1 TAB ORAL Q4H Y for For Pain, #30 TAB 0 Refills 07/26/15 Hydrochlorothiazide* (HYDROCHLOROTHIAZIDE*) 25 Mg Tablet, 25 MG ORAL DAILY, TAB 07/24/15 Med list reviewed/reconciled: Yes Allergies: Coded Allergies: No Known Allergies (Verified Allergy, Mild, 03/28/07) Patient History History Provided By: Patient, Medical Record [facility] Narrative Past Medical History: No History, Except For Hx Cardiac Problems: Yes Hx Hypertension: Yes Hx Pacemaker: No Hx Asthma: No Hx COPD: Yes Hx Diabetes: No Hx Cancer: No Hx Gastrointestinal Problems: No Hx Dialysis: No Hx Neurological Problems: No Hx Cerebrovascular Accident: No Hx Seizures: No Review of Systems All Other Systems: negative except mentioned in HPI Physical Exam Vital Signs Date Time Temp Pulse Resp B/P Pulse Ox O2 Delivery O2 Flow Rate FiO2 05/13/17 08:55 83 16 Room Air 05/13/17 09:08 155/80 99 05/13/17 09:47 21 05/13/17 11:12 98.2 Sp02 EP Interpretation: reviewed General Appearance: well appearing, no apparent distress, alert Head: normocephalic EENT: PERRL/EOMI, normal ENT inspection Neck: full range of motion, supple Respiratory: normal breath sounds, no respiratory distress Cardiovascular: normal rate, regular rhythm Gastrointestinal: normal inspection, non tender, soft Rectal: deferred Genitourinary: no CVA tenderness Musculoskeletal: back normal Neurologic: normal inspection, alert Psychiatric: normal inspection Skin: normal inspection, normal color, no rash, warm/dry Lymphatic: normal inspection, no adenopathy Current Medications Current Medications Medications (Trade) Dose Ordered Sig/Star Route PRN Reason Start Time Stop Time Status Last Admin Dose Admin Acetaminophen/ Hydrocodone Bitart ([place] 10/325) 1 ea Q4H PRN ORAL moderate breakthrough pain 05/16/17 15:00 05/23/17 14:59 05/17/17 08:46 Albuterol/ Ipratropium (DuoNeb 0.5-3(2.5)mg/3ml) 3 ml Q4H PRN HHN dyspnea 05/16/17 16:00 05/21/17 15:59 Amlodipine Besylate (Norvasc) 5 mg DAILY ORAL 05/17/17 09:00 06/16/17 08:59 05/17/17 08:16 Aspirin (Ecotrin) 81 mg DAILY ORAL 05/17/17 09:00 06/16/17 08:59 05/17/17 08:17 Bismuth Subsalicylate (Pepto-Bismol) 30 ml Q3H PRN ORAL Diarrhea 05/16/17 16:00 06/15/17 15:59 Bupropion HCl (Wellbutrin XL) 150 mg BID ORAL 05/16/17 18:00 06/15/17 17:59 05/17/17 08:15 Dextrose (Dextrose 50%) STAT PRN IV Hypoglycemia 05/16/17 15:00 06/15/17 14:59 Diphenhydramine HCl (Benadryl) 50 mg HSPRN PRN ORAL Insomnia 05/17/17 21:00 06/16/17 20:59 Docusate Sodium (Colace) 100 mg TID ORAL 05/16/17 18:00 06/15/17 17:59 05/17/17 08:15 Escitalopram Oxalate (Lexapro) 10 mg DAILY ORAL 05/17/17 09:00 06/16/17 08:59 05/17/17 08:15 Heparin Sodium (Porcine) (Heparin 5000 units/ml) 5,000 units EVERY 12 HOURS SUBQ 05/16/17 21:00 06/15/17 20:59 Hydromorphone HCl (Dilaudid) 1.5 mg EVERY 3 HOURS PRN IVP severe Pain 05/16/17 15:00 05/23/17 14:59 05/17/17 10:28 Lorazepam (Ativan) 2 mg EVERY 12 HOURS ORAL 05/16/17 21:00 05/23/17 20:59 05/17/17 08:16 Losartan Potassium (Cozaar) 50 mg EVERY 12 HOURS ORAL 05/16/17 21:00 06/15/17 20:59 05/17/17 08:16 Nicotine (Nicoderm) 1 patch Q24H TDERMAL 05/16/17 16:00 06/15/17 15:59 05/16/17 16:14 Nitroglycerin (Ntg) 0.4 mg Q5M X 3 DOSES PRN SL Prn Chest Pain 05/16/17 16:00 06/15/17 15:59 Ondansetron HCl (Zofran) 4 mg Q6H PRN IVP Nausea & Vomiting 05/16/17 18:00 06/15/17 17:59 Polyethylene Glycol (Miralax) 17 gm DAILY PRN ORAL Constipation 05/17/17 09:00 06/16/17 08:59 Promethazine HCl/ Codeine (Phenergan with Codeine) 5 ml Q6H PRN ORAL cough 05/16/17 16:00 06/15/17 15:59 Sertraline HCl (Zoloft) 200 mg DAILY ORAL 05/17/17 09:00 06/16/17 08:59 05/17/17 08:15 Temazepam (Restoril) 15 mg HSPRN PRN ORAL Insomnia 05/16/17 21:00 05/23/17 20:59 GI: Plan Problems: (1) Odynophagia (2) Anemia (3) Chronic pain Plan Neck CT reviewed >> Neck CT noted for possible age-related dysmotility, but otherwise unremarkable. anemia of chronic disease utox >> negative EGD scheduled for tomorrow. - diet, NPO @ [place]. - hold all blood thinners tonight. fu ST evaluation fu esophagram pain mgmt ppi fu labs Discussed with Dr. Rice. Thank you for referring this patient, we will follow. Rosalva Washington N.P. May 17, 2017 12:10
--- NOTE | 2017-05-17 12:24 | Pulmonology Progress Note ---
Assessment/Plan Problems: (1) Dysphagia (2) Costochondritis (3) ACS (acute coronary syndrome) (4) Cervical spondylosis (5) Knee pain, left (6) Degenerative disc disease, cervical (7) Anxiety Assessment/Plan swallow study in am barium swallow study Ct of neck reviewed titrate analgeiscs, increase dilaudid to 2 mg/ q 3 hours. asking for benadryl for night time Subjective Interval Events: difficulty swallowing, Allergies: Coded Allergies: No Known Allergies (Verified Allergy, Mild, 03/28/07) Objective Last 24 Hour Vital Signs Date Time Temp Pulse Resp B/P Pulse Ox O2 Delivery O2 Flow Rate FiO2 05/17/17 12:00 98.3 76 18 115/61 93 Room Air 05/17/17 10:58 97.9 05/17/17 09:45 97.9 05/17/17 08:29 99 16 Room Air 05/17/17 08:16 118/69 05/17/17 08:16 103 118/69 05/17/17 08:00 97.9 103 20 118/69 89 Room Air 05/17/17 04:00 97.5 91 18 122/74 92 Room Air 05/17/17 00:00 98.1 92 18 148/70 92 Room Air 05/16/17 20:57 110/59 05/16/17 20:00 98.4 85 18 110/59 91 Room Air 05/16/17 19:22 82 16 Room Air 05/16/17 16:00 98.0 87 20 98/52 93 Room Air Intake and Output 05/16/17 05/17/17 19:00 07:00 Intake Total 120 ml Balance 120 ml Intake Oral 120 ml # Voids 5 3 Objective General Appearance: WD/WN HEENT: normocephalic, atraumatic Respiratory/Chest: chest wall non-tender, lungs clear Breasts: no masses Cardiovascular: normal peripheral pulses, normal rate Abdomen: normal bowel sounds, soft, non tender Genitourinary: normal external genitalia Extremities: no cyanosis Skin: no rash Neurologic/Psychiatric: bee keeper II-XII grossly normal, normal mood/affect Lymphatic: no groin adenopathy Current Medications Medications (Trade) Dose Ordered Sig/Star Route PRN Reason Start Time Stop Time Status Last Admin Dose Admin Acetaminophen/ Hydrocodone Bitart ([place] 10/325) 1 ea Q4H PRN ORAL moderate breakthrough pain 05/16/17 15:00 05/23/17 14:59 05/17/17 08:46 Albuterol/ Ipratropium (DuoNeb 0.5-3(2.5)mg/3ml) 3 ml Q4H PRN HHN dyspnea 05/16/17 16:00 05/21/17 15:59 Amlodipine Besylate (Norvasc) 5 mg DAILY ORAL 05/17/17 09:00 06/16/17 08:59 05/17/17 08:16 Aspirin (Ecotrin) 81 mg DAILY ORAL 05/17/17 09:00 06/16/17 08:59 05/17/17 08:17 Bismuth Subsalicylate (Pepto-Bismol) 30 ml Q3H PRN ORAL Diarrhea 05/16/17 16:00 06/15/17 15:59 Bupropion HCl (Wellbutrin XL) 150 mg BID ORAL 05/16/17 18:00 06/15/17 17:59 05/17/17 08:15 Dextrose (Dextrose 50%) STAT PRN IV Hypoglycemia 05/16/17 15:00 06/15/17 14:59 Diphenhydramine HCl (Benadryl) 50 mg HSPRN PRN ORAL Insomnia 05/17/17 21:00 06/16/17 20:59 Docusate Sodium (Colace) 100 mg TID ORAL 05/16/17 18:00 06/15/17 17:59 05/17/17 08:15 Escitalopram Oxalate (Lexapro) 10 mg DAILY ORAL 05/17/17 09:00 06/16/17 08:59 05/17/17 08:15 Heparin Sodium (Porcine) (Heparin 5000 units/ml) 5,000 units EVERY 12 HOURS SUBQ 05/16/17 21:00 06/15/17 20:59 Hydromorphone HCl (Dilaudid) 1.5 mg EVERY 3 HOURS PRN IVP severe Pain 05/16/17 15:00 05/23/17 14:59 05/17/17 10:28 Lorazepam (Ativan) 2 mg EVERY 12 HOURS ORAL 05/16/17 21:00 05/23/17 20:59 05/17/17 08:16 Losartan Potassium (Cozaar) 50 mg EVERY 12 HOURS ORAL 05/16/17 21:00 06/15/17 20:59 05/17/17 08:16 Nicotine (Nicoderm) 1 patch Q24H TDERMAL 05/16/17 16:00 06/15/17 15:59 05/16/17 16:14 Nitroglycerin (Ntg) 0.4 mg Q5M X 3 DOSES PRN SL Prn Chest Pain 05/16/17 16:00 06/15/17 15:59 Ondansetron HCl (Zofran) 4 mg Q6H PRN IVP Nausea & Vomiting 05/16/17 18:00 06/15/17 17:59 Polyethylene Glycol (Miralax) 17 gm DAILY PRN ORAL Constipation 05/17/17 09:00 06/16/17 08:59 Promethazine HCl/ Codeine (Phenergan with Codeine) 5 ml Q6H PRN ORAL cough 05/16/17 16:00 06/15/17 15:59 Sertraline HCl (Zoloft) 200 mg DAILY ORAL 05/17/17 09:00 06/16/17 08:59 05/17/17 08:15 Temazepam (Restoril) 15 mg HSPRN PRN ORAL Insomnia 05/16/17 21:00 05/23/17 20:59 DEBBY CHUNG May 17, 2017 12:24
[2017-05-17 13:35] LABS: URIC ACID 3.8 mg/dL (3.0-7.5)
[2017-05-17 17:52] LABS: APPEARANCE,URINE SLIGHTLY CLOUDY; KETONES,URINE 1+ (NEGATIVE); LEUKOCYTE ESTERASE ,URINE 3+ (NEGATIVE); NITRITE,URINE NEGATIVE (NEGATIVE); PH,URINE 6 (4.5-8.0); PROTEIN,URINE 1+ (NEGATIVE); UROBILINOGEN,URINE 1 MG/DL (0.0-1.0)
[2017-05-17 18:03] LABS: SQUAMOUS EPITHELIAL CELL,UR MANY /LPF (NONE/OCC)
[2017-05-17 18:04] LABS: BACTERIA,URINE MODERATE /HPF
[2017-05-18] VITALS (9 sets, daily range): BP systolic 109–162; BP diastolic 58–81
[2017-05-18] MEDS: HYDROmorphone 1mg/ml Carpuject IVP PRN ×5 (04:15→18:31)
[2017-05-18 06:24] LABS: BASOPHILS % (AUTO) 1.5 % (0.0-2.0); EOSINOPHILS % (AUTO) 4.4 % (0.0-3.0); LYMPHOCYTES % (AUTO) 35.1 % (20.0-45.0); MEAN CORPUSCULAR HEMOGLOBIN 30.2 PG (27.0-31.0); MEAN CORPUSCULAR HGB CONC 31.4 G/DL (32.0-36.0); MEAN CORPUSCULAR VOLUME 96 FL (80-99); MEAN PLATELET VOLUME 12.3 FL (6.5-10.1); NEUTROPHILS % (AUTO) 48.1 % (45.0-75.0); PLATELET COUNT 160 K/UL (150-450); RED BLOOD COUNT 3.67 M/UL (4.20-5.40); RED CELL DISTRIBUTION WIDTH 13.4 % (11.6-14.8); WHITE BLOOD COUNT 6.7 K/UL (4.8-10.8)
[2017-05-18 06:36] LABS: ANION GAP 8 (5-15); CALCIUM 9.5 mg/dL (8.6-10.2); CARBON DIOXIDE 32 mEQ/L (20-30); CHLORIDE 102 mEQ/L (98-107); CREATININE 0.8 mg/dL (0.5-0.9); GLOMERULAR FILTRATION RATE > 60 mL/min (>60); HEMOLYSIS 0; POTASSIUM 4.2 mEQ/L (3.4-4.9); SODIUM 142 mEQ/L (135-145)
[2017-05-18 06:39] LABS: PROTHROMBIN TIME 10.1 SEC (9.30-11.50)
[2017-05-18 07:12] LABS: LACTATE DEHYDROGENASE 202 U/L (135-230)
[2017-05-18 08:30] LABS: ERYTHROCYTE SEDIMENTATION RATE 34 MM/HR (0-30)
[2017-05-18 08:34] LABS: EOSINOPHILS % (MANUAL) 4 % (0-3); LYMPHOCYTES % (MANUAL) 48 % (20-45); NEUTROPHILS % (MANUAL) 40 % (45-75); PLATELET MORPHOLOGY NORMAL; TOTAL CELLS COUNTED 100
[2017-05-18 08:35] LABS: BAND NEUTROPHILS % (MANUAL) 0 % (0-8); BASOPHILS % (MANUAL) 0 % (0-2); PLATELET ESTIMATE ADEQUATE; STOMATOCYTES 1+
--- NOTE | 2017-05-18 08:35 | General Progress Note ---
Assessment/Plan Assessment/Plan (1) Degenerative disc disease, cervical (2) Cervical spondylosis (3) Cervical herniated disc (4) Cervical radiculopathy (5) History of fusion of cervical spine We will continue Dilaudid and Thompson. D/w Dr. Tucker and he concurred. Subjective Date patient seen: May 18, 2017 Time patient seen: 08:00 - am Constitutional: Reports: no symptoms HEENT: Reports: no symptoms Cardiovascular: Reports: no symptoms Respiratory: Reports: no symptoms Gastrointestinal/Abdominal: Reports: no symptoms Genitourinary: Reports: no symptoms Neurologic/Psychiatric: Reports: anxiety, emotional problems Endocrine: Reports: no symptoms Hematologic/Lymphatic: Reports: no symptoms Allergies: Coded Allergies: No Known Allergies (Verified Allergy, Mild, 03/28/07) Subjective Pt continues to c/o neck pain which has been worse with movement and reduced on the Thompson and dilaudid as needed. Dilaudid was increased to 2mg Q3H PRN as per mandarin teacher. Going for EGD later today as per GI. Objective Last 24 Hour Vital Signs Date Time Temp Pulse Resp B/P Pulse Ox O2 Delivery O2 Flow Rate FiO2 05/18/17 08:00 98.1 80 19 120/70 98 Room Air 05/18/17 07:53 80 16 Room Air 05/18/17 04:00 97.4 101 18 149/81 93 Room Air 05/17/17 23:59 97.9 89 18 119/60 93 Room Air 05/17/17 21:28 111/89 05/17/17 20:22 89 16 Room Air 05/17/17 20:00 98.1 84 18 111/52 95 Room Air 05/17/17 19:08 98.3 05/17/17 18:00 98.3 05/17/17 16:00 98.4 88 18 128/74 95 Room Air 05/17/17 12:00 98.3 76 18 115/61 93 Room Air 05/17/17 10:58 97.9 Intake and Output 05/17/17 05/18/17 19:00 07:00 Intake Total 840 ml Output Total 1 ml 75 ml Balance 839 ml -75 ml Intake Oral 840 ml Output Emesis 1 ml 75 ml # Voids 6 1 Laboratory Tests 05/17/17 13:12: Uric Acid 3.8, Total Creatine Kinase 201H 8/14/17 17:00: Urine Color Brown, Urine Appearance Slightly cloudy, Urine pH 6, Urine Specific [place] 1.020, Urine Protein 1+H, Urine Glucose (UA) Negative, Urine Ketones 1+H , Urine Occult Blood Negative, Urine Nitrite Negative, Urine Bilirubin Negative , Urine Urobilinogen 1H, Urine Leukocyte Esterase 3+H, Urine RBC 2-4H, Urine WBC 5-10H, Urine Squamous Epithelial Cells ManyH, Urine Bacteria ModerateH, Urine Eosinophils None seen, Urine Random Sodium 49, Urine Potassium Timed 44 05/18/17 05:45: White Blood Count 6.7, Red Blood Count 3.67L, Hemoglobin 11.1L, Hematocrit 35.2L , Mean Corpuscular Volume 96, Mean Corpuscular Hemoglobin 30.2, Mean Corpuscular Hemoglobin Concent 31.4L, Red Cell Distribution Width 13.4, Platelet Count 160, Mean Platelet Volume 12.3H, Neutrophils (%) (Auto) 48.1, Lymphocytes (%) (Auto) 35.1, Monocytes (%) (Auto) 11.0H, Eosinophils (%) (Auto) 4.4H, Basophils (%) (Auto) 1.5, Neutrophils % (Manual) [Pending], Lymphocytes % (Manual) [Pending], Platelet Estimate [Pending], Platelet Morphology [Pending], Erythrocyte Sedimentation Rate 34H, Reticulocyte Count [Pending], Prothrombin Time 10.1, Prothromb Time International Ratio 1.0, Activated Partial Thromboplast Time 28, Sodium Level 142, Potassium Level 4.2, Chloride Level 102 , Carbon Dioxide Level 32H, Anion Gap 8, Blood Urea Nitrogen 15, Creatinine 0.8 , Estimat Glomerular Filtration Rate > 60, Glucose Level 102, Calcium Level 9.5 , Iron Level [Pending], Unsaturated Iron Binding [Pending], Lactate Dehydrogenase 202, Carcinoembryonic Antigen 3.2H, Vitamin B12 Level 677, Folate [Pending] Height (Feet): 5 Height (Inches): 5.00 Weight (Pounds): 165 Objective General Appearance: no apparent distress, alert EENT: normal ENT inspection Neck: normal alignment, supple Cardiovascular: normal rate, regular rhythm Respiratory/Chest: lungs clear, normal breath sounds Abdomen: non tender, soft Edema: no edema noted Arm (L), no edema noted Arm (R), no edema noted Leg (L), no edema noted Leg (R), no edema noted Pedal (L), no edema noted Pedal (R), no edema noted Generalized Neurologic: alert, oriented x 3 Skin: normal pigmentation LISBET KEANE May 18, 2017 08:35
[2017-05-18 08:36] LABS: ANISOCYTOSIS 1+; HYPOCHROMASIA 1+
--- NOTE | 2017-05-18 08:52 | Pre-Procedure Note/Attestation ---
Pre-Procedure Note/Attestation Complete Prior to Procedure Planned Procedure: not applicable Procedure Narrative: egd Indications for Procedure Pre-Operative Diagnosis: gib Attestation I attest that I discussed the nature of the procedure; its benefits; risks and complications; and alternatives (and the risks and benefits of such alternatives ), prior to the procedure, with the patient (or the patient's legal entry level sales representative). I attest that, if there was a reasonable possibility of needing a blood transfusion, the patient (or the patient's legal entry level sales representative) was given the [facility] standardized written summary, pursuant to the Marcial Sobeida Blood Safety Act ([place] Health and Safety Code # 1645, as amended). I attest that I re-evaluated the patient just prior to the surgery and that there has been no change in the patient's H&P, except as documented below: SILVANO MCKEON May 18, 2017 08:52
[2017-05-18] MEDS ORDERED: Propofol 10mg/ml 20ml IV ONE (09:00)
[2017-05-18] MEDS ORDERED: Lidocaine 1% MPF 10mg/ml 5ml ONE (09:00)
[2017-05-18] MEDS: Heparin 5000 units/ml inj SUBQ SCH ×2 (09:00→20:33)
[2017-05-18] MEDS: Aspirin EC 81mg tab ORAL SCH (09:00)
[2017-05-18] MEDS: Losartan 50mg tab ORAL SCH ×2 (09:00→20:32)
[2017-05-18] MEDS ORDERED: LR 1000ml ONE (09:00)
[2017-05-18 09:10] LABS: HEMOLYSIS 5; IRON 30 ug/dL (37-145); TOTAL IRON BINDING CAPACITY 295 ug/dL (250-400)
[2017-05-18] MEDS ORDERED: NS 550ML IV ONE (09:10)
--- NOTE | 2017-05-18 09:20 | Endoscopy Procedure Note ---
Endoscopy Procedure Note Indication for Procedure: gib Procedures Performed: EGD Operative Findings/Diagnosis: esophagitis Specimen: yes Pt Tolerated Procedure Well: Yes Estimated Blood Loss: none Anesthesiologist: emiliano Anesthesia: MAC Implant(s) used?: No 50 yrs or older w/o bx or poly: Not Applicable 10yrs. F/U not recommended: Not Applicable SILVANO MCKEON May 18, 2017 09:20
--- NOTE | 2017-05-18 09:34 | Diagnostic Imaging Report ---
Indication: Abnormal renal function tests Technique: Grayscale and duplex images of the kidneys, retroperitoneum, and bladder were obtained. Comparison:None Findings: Right kidney measures 9.5 cm in length. Left kidney measures 11.2 cm in length. Both kidneys demonstrate normal echogenicity. No hydronephrosis. There is a 2.5 cm cyst in the interpolar region.. Normal inferior vena cava. Bladder is normal. Impression: Left renal cyst Negative for hydronephrosis.
--- NOTE | 2017-05-18 09:40 | Anethesia Preoperative Eval ---
Anesthesia Pre-op PMH/ROS General Date of Evaluation: May 18, 2017 Time of Evaluation: 09:38 Anesthesiologist: sun ASA Score: ASA 3 Mallampati Score Class I : Soft palate, uvula, fauces, pillars visible Class II: Soft palate, uvula, fauces visible Class III: Soft palate, base of uvula visible Class IV: Only hard plate visible Surgeon: crystal Diagnosis: anemia Surgical Procedure: EGD Anesthesia History: none Family History: no anesthesia problems Allergies: Coded Allergies: No Known Allergies (Verified Allergy, Mild, 03/28/07) Medications: see eMAR Past Medical History Cardiovascular: Reports: HTN Pulmonary: Reports: COPD Gastrointestinal/Genitourinary: Denies: CRI, ESRD, GERD, other Neurologic/Psychiatric: Denies: CVA, TIA, dementia, depression/anxiety, other Endocrine: Denies: DM, hypothyroidism, other, steroids HEENT: Denies: CHITINA (L), CHITINA (R), cataract (L), cataract (R), glaucoma, other Hematology/Immune: Denies: DVT, anemia, bleeding disorder, other Musculoskeletal/Integumentary: Denies: DDD, DJD, OA, RA, edema, other Other: obesity, other - chronic pain PSxH Narrative: see chart Anesthesia Pre-op Phys. Exam Physician Exam Last Vital Signs Date Time Temp Pulse Resp B/P Pulse Ox O2 Delivery O2 Flow Rate FiO2 05/18/17 08:00 98.1 80 19 120/70 98 Room Air 05/14/17 08:37 21 Constitutional: NAD Neurologic: CN 2-12 intact Cardiovascular: RRR Respiratory: CTA Gastrointestinal: S/NT/ND Airway Exam Mallampati Classification 3 Mallampati Score: Class II Neck: thick ROM: full Teeth: missing Anesthesia Pre-op A/P Labs Hematology Test 05/18/17 05:45 White Blood Count 6.7 K/UL (4.8-10.8) Red Blood Count 3.67 M/UL (4.20-5.40) L Hemoglobin 11.1 G/DL (12.0-16.0) L Hematocrit 35.2 % (37.0-47.0) L Mean Corpuscular Volume 96 FL (80-99) Mean Corpuscular Hemoglobin 30.2 PG (27.0-31.0) Mean Corpuscular Hemoglobin Concent 31.4 G/DL (32.0-36.0) L Red Cell Distribution Width 13.4 % (11.6-14.8) Platelet Count 160 K/UL (150-450) Mean Platelet Volume 12.3 FL (6.5-10.1) H Neutrophils (%) (Auto) 48.1 % (45.0-75.0) Lymphocytes (%) (Auto) 35.1 % (20.0-45.0) Monocytes (%) (Auto) 11.0 % (1.0-10.0) H Eosinophils (%) (Auto) 4.4 % (0.0-3.0) H Basophils (%) (Auto) 1.5 % (0.0-2.0) Differential Total Cells Counted 100 Neutrophils % (Manual) 40 % (45-75) L Lymphocytes % (Manual) 48 % (20-45) H Monocytes % (Manual) 8 % (1-10) Eosinophils % (Manual) 4 % (0-3) H Basophils % (Manual) 0 % (0-2) Band Neutrophils 0 % (0-8) Platelet Estimate Adequate Platelet Morphology Normal Hypochromasia 1+ Anisocytosis 1+ Stomatocytes 1+ Erythrocyte Sedimentation Rate 34 MM/HR (0-30) H Reticulocyte Count Pending Coagulation Test 05/18/17 05:45 Prothrombin Time 10.1 SEC (9.30-11.50) Prothromb Time International Ratio 1.0 (0.9-1.1) Activated Partial Thromboplast Time 28 SEC (23-33) Chemistry Test 05/17/17 13:12 05/18/17 05:45 Uric Acid 3.8 mg/dL (3.0-7.5) Total Creatine Kinase 201 U/L (26-140) H Sodium Level 142 mEQ/L (135-145) Potassium Level 4.2 mEQ/L (3.4-4.9) Chloride Level 102 mEQ/L (98-107) Carbon Dioxide Level 32 mEQ/L (20-30) H Anion Gap 8 (5-15) Blood Urea Nitrogen 15 mg/dL (7-23) Creatinine 0.8 mg/dL (0.5-0.9) Estimat Glomerular Filtration Rate > 60 mL/min (>60) Glucose Level 102 mg/dL (74-106) Calcium Level 9.5 mg/dL (8.6-10.2) Iron Level 30 ug/dL (37-145) L Total Iron Binding Capacity 295 ug/dL (250-400) Percent Iron Saturation 10 % (15-50) L Unsaturated Iron Binding 265 ug/dL (112-346) Lactate Dehydrogenase 202 U/L (135-230) Carcinoembryonic Antigen 3.2 ng/mL H Vitamin B12 Level 677 pg/mL (211-946) Folate Pending Studies Pre-op Studies: EKG - sr Risk Assessment & Plan Plan: mac Status Change Before Surgery: No Pre-Antibiotics Drug: none HARSHA CORNEJO CRNA May 18, 2017 09:40
--- NOTE | 2017-05-18 09:47 | 48 Hour Post Anesthesia Eval ---
Post Anesthesia Evaluation Procedure: EGD Date of Evaluation: May 18, 2017 Time of Evaluation: 09:47 Blood Pressure Systolic: 125 0: 70 Pulse Rate: 74 Respiratory Rate: 14 O2 Sat by Pulse Oximetry: 100 Airway: patent Nausea: No Vomiting: No Hydration Status: adequate Mental Status/LOC: patient returned to baseline Post-Anesthesia Complications: none Follow-up care needed: N/A HARSHA CORNEJO CRNA May 18, 2017 09:47
--- NOTE | 2017-05-18 09:54 | Immediate Post-Op Evaluation ---
Immediate Post-Op Evalulation Immediate Post-Op Evalulation Procedure: EGD Date of Evaluation: May 18, 2017 Time of Evaluation: 09:30 IV Fluids: 500 Blood Pressure Systolic: 124 Blood Pressure Diastolic: 87 Pulse Rate: 87 Respiratory Rate: 14 O2 Sat by Pulse Oximetry: 100 Nausea: No Vomiting: No Complications none Patient Status: awake, reacts, patent Drug: none HARSHA CORNEJO CRNA May 18, 2017 09:54
[2017-05-18] MEDS: Sertraline 100mg tab ORAL SCH (10:13)
[2017-05-18] MEDS: Docusate 100mg cap ORAL SCH ×3 (10:14→18:30)
[2017-05-18] MEDS: BuPROPion XL 150mg tab ORAL SCH ×2 (10:14→18:31)
[2017-05-18 11:08] LABS: PATH BLOOD SMEAR/OMC SENT TO PATHOLOGIST; RETICULOCYTE COUNT 1.5 % (0.0-2.0)
[2017-05-18] MEDS: LORazepam 1mg tab ORAL SCH ×2 (11:38→20:33)
--- NOTE | 2017-05-18 13:30 | Procedure Note ---
DATE OF PROCEDURE: 05/18/2017 PROCEDURE: Upper endoscopy with biopsy. SURGEON: Efren Rice M.D. ANESTHESIA: Per DARLENE, Veronica Stapleton. INSTRUMENT: Olympus adult flexible upper endoscope. INDICATION: Upper GI bleeding. REASON FOR PROCEDURE: The procedure, risks, benefits, and possible consequences, including hemorrhage, aspiration, perforation and infection, and alternative treatments, were explained to the patient/legal guardian by Dr. Efren Rice and the patient/legal guardian understood and accepted these risks. DESCRIPTION OF PROCEDURE: After informed consent was obtained and the patient was adequately sedated, Olympus upper endoscope was advanced from the mouth into the second portion of the duodenum and retroflexion was performed in the stomach. The patient had evidence of small hiatal hernia associated with distal esophagitis. biopsied. In the stomach, there was diffuse gastritis. Random biopsy from antrum was obtained to rule out H. pylori infection. . The patient tolerated the procedure well without any complication. SUMMARY OF FINDINGS: 1. Gastritis. 2. Esophagitis. 3. Hiatal hernia. RECOMMENDATIONS: 1. Follow up biopsy result . 2. Reflux measures. 3. PPI daily. 4. Resume diet. The patient is to be discharged and follow as an outpatient. Efren Rice M.D. DR: SILVIA JOB#: [id number] CC: KIMBERLY
--- NOTE | 2017-05-18 14:01 | GI Progress Note ---
Assessment/Plan Problems: (1) Dysphagia ICD Codes: R13.10 - Dysphagia, unspecified SNOMED: 23282166, 510724563 (2) Anemia ICD Codes: D64.9 - Anemia, unspecified SNOMED: 269595086 (3) Odynophagia ICD Codes: R13.10 - Dysphagia, unspecified SNOMED: 62618378 Status: stable Status Narrative Discussed with Dr. Rice. Assessment/Plan S/P EGD SUMMARY OF FINDINGS: 1. Gastritis. 2. Esophagitis. 3. Hiatal hernia. ST evaluation reviewed >> SIGNIFICANT ESOPHAGEAL DYSPHAGIA. RECOMMENDATIONS: Follow up biopsy result and treat accordingly Reflux measures. PPI daily. Resume diet. fu esophagram fu labs Subjective Subjective painful swallowing Objective Last 24 Hour Vital Signs Date Time Temp Pulse Resp B/P Pulse Ox O2 Delivery O2 Flow Rate FiO2 05/18/17 12:00 96.9 86 19 109/66 Room Air 05/18/17 09:54 87 14 100 05/18/17 09:47 74 14 100 05/18/17 09:45 97.6 78 23 127/78 99 Nasal Cannula 3.0 05/18/17 09:32 83 24 125/75 98 Simple Mask 6.0 05/18/17 09:27 84 16 126/79 98 Simple Mask 6.0 05/18/17 09:22 97.1 71 18 112/67 98 Simple Mask 6.0 05/18/17 09:00 101/60 05/18/17 09:00 75 101/60 05/18/17 08:00 98.1 80 19 120/70 98 Room Air 05/18/17 07:53 80 16 Room Air 05/18/17 04:00 97.4 101 18 149/81 93 Room Air 05/17/17 23:59 97.9 89 18 119/60 93 Room Air 05/17/17 21:28 111/89 05/17/17 20:22 89 16 Room Air 05/17/17 20:00 98.1 84 18 111/52 95 Room Air 05/17/17 19:08 98.3 05/17/17 18:00 98.3 05/17/17 16:00 98.4 88 18 128/74 95 Room Air Intake and Output 05/17/17 05/18/17 19:00 07:00 Intake Total 840 ml Output Total 1 ml 75 ml Balance 839 ml -75 ml Intake Oral 840 ml Output Emesis 1 ml 75 ml # Voids 6 1 Laboratory Tests Test 05/17/17 17:00 05/18/17 05:45 Urine Color Brown Urine Appearance Slightly cloudy Urine pH 6 (4.5-8.0) Urine Specific [place] 1.020 (1.005-1.035) Urine Protein 1+ (NEGATIVE) H Urine Glucose (UA) Negative (NEGATIVE) Urine Ketones 1+ (NEGATIVE) H Urine Occult Blood Negative (NEGATIVE) Urine Nitrite Negative (NEGATIVE) Urine Bilirubin Negative (NEGATIVE) Urine Urobilinogen 1 MG/DL (0.0-1.0) H Urine Leukocyte Esterase 3+ (NEGATIVE) H Urine RBC 2-4 /HPF (0 - 2) H Urine WBC 5-10 /HPF (0 - 2) H Urine Squamous Epithelial Cells Many /LPF (NONE/OCC) H Urine Bacteria Moderate /HPF (NONE) H Urine Eosinophils None seen Urine Random Sodium 49 mmol/L Urine Potassium Timed 44 mmol/L White Blood Count 6.7 K/UL (4.8-10.8) Red Blood Count 3.67 M/UL (4.20-5.40) L Hemoglobin 11.1 G/DL (12.0-16.0) L Hematocrit 35.2 % (37.0-47.0) L Mean Corpuscular Volume 96 FL (80-99) Mean Corpuscular Hemoglobin 30.2 PG (27.0-31.0) Mean Corpuscular Hemoglobin Concent 31.4 G/DL (32.0-36.0) L Red Cell Distribution Width 13.4 % (11.6-14.8) Platelet Count 160 K/UL (150-450) Mean Platelet Volume 12.3 FL (6.5-10.1) H Neutrophils (%) (Auto) 48.1 % (45.0-75.0) Lymphocytes (%) (Auto) 35.1 % (20.0-45.0) Monocytes (%) (Auto) 11.0 % (1.0-10.0) H Eosinophils (%) (Auto) 4.4 % (0.0-3.0) H Basophils (%) (Auto) 1.5 % (0.0-2.0) Differential Total Cells Counted 100 Neutrophils % (Manual) 40 % (45-75) L Lymphocytes % (Manual) 48 % (20-45) H Monocytes % (Manual) 8 % (1-10) Eosinophils % (Manual) 4 % (0-3) H Basophils % (Manual) 0 % (0-2) Band Neutrophils 0 % (0-8) Platelet Estimate Adequate Platelet Morphology Normal Hypochromasia 1+ Anisocytosis 1+ Stomatocytes 1+ Erythrocyte Sedimentation Rate 34 MM/HR (0-30) H Reticulocyte Count 1.5 % (0.0-2.0) Prothrombin Time 10.1 SEC (9.30-11.50) Prothromb Time International Ratio 1.0 (0.9-1.1) Activated Partial Thromboplast Time 28 SEC (23-33) Sodium Level 142 mEQ/L (135-145) Potassium Level 4.2 mEQ/L (3.4-4.9) Chloride Level 102 mEQ/L (98-107) Carbon Dioxide Level 32 mEQ/L (20-30) H Anion Gap 8 (5-15) Blood Urea Nitrogen 15 mg/dL (7-23) Creatinine 0.8 mg/dL (0.5-0.9) Estimat Glomerular Filtration Rate > 60 mL/min (>60) Glucose Level 102 mg/dL (74-106) Calcium Level 9.5 mg/dL (8.6-10.2) Iron Level 30 ug/dL (37-145) L Total Iron Binding Capacity 295 ug/dL (250-400) Percent Iron Saturation 10 % (15-50) L Unsaturated Iron Binding 265 ug/dL (112-346) Lactate Dehydrogenase 202 U/L (135-230) Carcinoembryonic Antigen 3.2 ng/mL H Vitamin B12 Level 677 pg/mL (211-946) Folate Pending Microbiology Date/Time Source Procedure Growth Status 05/17/17 17:00 Urine,Clean Catch Urine Culture - Preliminary Resulted Height (Feet): 5 Height (Inches): 5.00 Weight (Pounds): 165 General Appearance: no apparent distress, alert Cardiovascular: normal rate Respiratory/Chest: normal breath sounds, no respiratory distress Abdominal Exam: normal bowel sounds, non tender, soft Extremities: normal range of motion Rosalva Washington N.PJovanny May 18, 2017 14:01
[2017-05-18] MEDS ORDERED: ATIVAN1 MG ORAL (14:15)
[2017-05-18] MEDS ORDERED: DILAUDID1 MG/M1 IVP (14:15)
--- NOTE | 2017-05-18 14:16 | Pulmonology Progress Note ---
Assessment/Plan Problems: (1) Dysphagia (2) Costochondritis (3) ACS (acute coronary syndrome) (4) Cervical spondylosis (5) Knee pain, left (6) Degenerative disc disease, cervical (7) Anxiety Assessment/Plan swallow study done upper endoscoy showed esophagitis, Ct of neck reviewed dilaudid to 2 mg/ q 3 hours. dc to short term rehab continue current pureed diet. Subjective ROS Limited/Unobtainable: No Constitutional: Reports: no symptoms HEENT: Repors: no symptoms Respiratory: Reports: no symptoms Allergies: Coded Allergies: No Known Allergies (Verified Allergy, Mild, 03/28/07) Objective Last 24 Hour Vital Signs Date Time Temp Pulse Resp B/P Pulse Ox O2 Delivery O2 Flow Rate FiO2 05/18/17 12:00 96.9 86 19 109/66 Room Air 05/18/17 09:54 87 14 100 05/18/17 09:47 74 14 100 05/18/17 09:45 97.6 78 23 127/78 99 Nasal Cannula 3.0 05/18/17 09:32 83 24 125/75 98 Simple Mask 6.0 05/18/17 09:27 84 16 126/79 98 Simple Mask 6.0 05/18/17 09:22 97.1 71 18 112/67 98 Simple Mask 6.0 05/18/17 09:00 101/60 05/18/17 09:00 75 101/60 05/18/17 08:00 98.1 80 19 120/70 98 Room Air 05/18/17 07:53 80 16 Room Air 05/18/17 04:00 97.4 101 18 149/81 93 Room Air 05/17/17 23:59 97.9 89 18 119/60 93 Room Air 05/17/17 21:28 111/89 05/17/17 20:22 89 16 Room Air 05/17/17 20:00 98.1 84 18 111/52 95 Room Air 05/17/17 19:08 98.3 05/17/17 18:00 98.3 05/17/17 16:00 98.4 88 18 128/74 95 Room Air Intake and Output 05/17/17 05/18/17 19:00 07:00 Intake Total 840 ml Output Total 1 ml 75 ml Balance 839 ml -75 ml Intake Oral 840 ml Output Emesis 1 ml 75 ml # Voids 6 1 Objective General Appearance: WD/WN HEENT: normocephalic, atraumatic Respiratory/Chest: chest wall non-tender, lungs clear Breasts: no masses Cardiovascular: normal peripheral pulses, normal rate Abdomen: normal bowel sounds, soft, non tender Genitourinary: normal external genitalia Extremities: no cyanosis Skin: no rash 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, normal mood/affect Lymphatic: no groin adenopathy Microbiology Date/Time Source Procedure Growth Status 05/17/17 17:00 Urine,Clean Catch Urine Culture - Preliminary Resulted Laboratory Tests 05/17/17 17:00: Urine Color Brown, Urine Appearance Slightly cloudy, Urine pH 6, Urine Specific [place] 1.020, Urine Protein 1+H, Urine Glucose (UA) Negative, Urine Ketones 1+H , Urine Occult Blood Negative, Urine Nitrite Negative, Urine Bilirubin Negative , Urine Urobilinogen 1H, Urine Leukocyte Esterase 3+H, Urine RBC 2-4H, Urine WBC 5-10H, Urine Squamous Epithelial Cells ManyH, Urine Bacteria ModerateH, Urine Eosinophils None seen, Urine Random Sodium 49, Urine Potassium Timed 44 05/18/17 05:45: White Blood Count 6.7, Red Blood Count 3.67L, Hemoglobin 11.1L, Hematocrit 35.2L , Mean Corpuscular Volume 96, Mean Corpuscular Hemoglobin 30.2, Mean Corpuscular Hemoglobin Concent 31.4L, Red Cell Distribution Width 13.4, Platelet Count 160, Mean Platelet Volume 12.3H, Neutrophils (%) (Auto) 48.1, Lymphocytes (%) (Auto) 35.1, Monocytes (%) (Auto) 11.0H, Eosinophils (%) (Auto) 4.4H, Basophils (%) (Auto) 1.5, Differential Total Cells Counted 100, Neutrophils % (Manual) 40L, Lymphocytes % (Manual) 48H, Monocytes % (Manual) 8, Eosinophils % (Manual) 4H, Basophils % (Manual) 0, Band Neutrophils 0, Platelet Estimate Adequate, Platelet Morphology Normal, Hypochromasia 1+, Anisocytosis 1+ , Stomatocytes 1+, Erythrocyte Sedimentation Rate 34H, Reticulocyte Count 1.5, Prothrombin Time 10.1, Prothromb Time International Ratio 1.0, Activated Partial Thromboplast Time 28, Sodium Level 142, Potassium Level 4.2, Chloride Level 102, Carbon Dioxide Level 32H, Anion Gap 8, Blood Urea Nitrogen 15, Creatinine 0.8, Estimat Glomerular Filtration Rate > 60, Glucose Level 102, Calcium Level 9.5, Iron Level 30L, Total Iron Binding Capacity 295, Percent Iron Saturation 10L, Unsaturated Iron Binding 265, Lactate Dehydrogenase 202, Carcinoembryonic Antigen 3.2H, Vitamin B12 Level 677, Folate [Pending] Current Medications Medications (Trade) Dose Ordered Sig/Star Route PRN Reason Start Time Stop Time Status Last Admin Dose Admin Acetaminophen/ Hydrocodone Bitart ([place] 10/325) 1 ea Q4H PRN ORAL moderate breakthrough pain 05/16/17 15:00 05/23/17 14:59 05/17/17 17:01 Albuterol/ Ipratropium (DuoNeb 0.5-3(2.5)mg/3ml) 3 ml Q4H PRN HHN dyspnea 05/16/17 16:00 05/21/17 15:59 Amlodipine Besylate (Norvasc) 5 mg DAILY ORAL 05/17/17 09:00 06/16/17 08:59 05/17/17 08:16 Aspirin (Ecotrin) 81 mg DAILY ORAL 05/17/17 09:00 06/16/17 08:59 05/17/17 08:17 Bismuth Subsalicylate (Pepto-Bismol) 30 ml Q3H PRN ORAL Diarrhea 05/16/17 16:00 06/15/17 15:59 Bupropion HCl (Wellbutrin XL) 150 mg BID ORAL 05/16/17 18:00 06/15/17 17:59 05/18/17 10:14 Dextrose (Dextrose 50%) STAT PRN IV Hypoglycemia 05/16/17 15:00 06/15/17 14:59 Diphenhydramine HCl (Benadryl) 50 mg HSPRN PRN ORAL Insomnia 05/17/17 21:00 06/16/17 20:59 Docusate Sodium (Colace) 100 mg TID ORAL 05/16/17 18:00 06/15/17 17:59 05/18/17 13:24 Escitalopram Oxalate (Lexapro) 10 mg DAILY ORAL 05/17/17 09:00 06/16/17 08:59 05/18/17 10:14 Heparin Sodium (Porcine) (Heparin 5000 units/ml) 5,000 units EVERY 12 HOURS SUBQ 05/16/17 21:00 06/15/17 20:59 Hydromorphone HCl (Dilaudid) 2 mg EVERY 3 HOURS PRN IVP severe Pain 05/17/17 12:30 05/24/17 12:29 05/18/17 13:22 Lorazepam (Ativan) 2 mg EVERY 12 HOURS ORAL 05/16/17 21:00 05/23/17 20:59 05/18/17 11:38 Losartan Potassium (Cozaar) 50 mg EVERY 12 HOURS ORAL 05/16/17 21:00 06/15/17 20:59 05/17/17 21:28 Nicotine (Nicoderm) 1 patch Q24H TDERMAL 05/16/17 16:00 06/15/17 15:59 05/17/17 15:32 Nitroglycerin (Ntg) 0.4 mg Q5M X 3 DOSES PRN SL Prn Chest Pain 05/16/17 16:00 06/15/17 15:59 Ondansetron HCl (Zofran) 4 mg Q6H PRN IVP Nausea & Vomiting 05/16/17 18:00 06/15/17 17:59 Pantoprazole (Protonix) 40 mg DAILY ORAL 05/18/17 10:00 06/17/17 09:59 05/18/17 10:14 Polyethylene Glycol (Miralax) 17 gm DAILY PRN ORAL Constipation 05/17/17 09:00 06/16/17 08:59 Promethazine HCl/ Codeine (Phenergan with Codeine) 5 ml Q6H PRN ORAL cough 05/16/17 16:00 06/15/17 15:59 Sertraline HCl (Zoloft) 200 mg DAILY ORAL 05/17/17 09:00 06/16/17 08:59 05/18/17 10:13 Temazepam (Restoril) 15 mg HSPRN PRN ORAL Insomnia 05/16/17 21:00 05/23/17 20:59 DEBBY CHUNG May 18, 2017 14:16
[2017-05-18] MEDS: Norco 10mg/325mg tab ORAL PRN (21:45)
[2017-05-18] MEDS ORDERED: HYDROmorphone 4mg tab ORAL PRN (23:45)
[2017-05-19 00:05] VITALS: BP 109/65
[2017-05-19 04:00] VITALS: BP 148/70
[2017-05-19 08:00] VITALS: BP 131/62
[2017-05-19 08:12] LABS: OTHERS PATHOLOGIST COMMENT
--- NOTE | 2017-05-19 08:38 | General Progress Note ---
Assessment/Plan Assessment/Plan (1) Degenerative disc disease, cervical (2) Cervical spondylosis (3) Cervical herniated disc (4) Cervical radiculopathy (5) History of fusion of cervical spine We will continue Dilaudid and [facility]. D/w Dr. Tucker and he concurred. Subjective Date patient seen: May 19, 2017 Time patient seen: 07:00 - am Constitutional: Reports: no symptoms HEENT: Reports: no symptoms Cardiovascular: Reports: no symptoms Respiratory: Reports: no symptoms Gastrointestinal/Abdominal: Reports: no symptoms Genitourinary: Reports: no symptoms Neurologic/Psychiatric: Reports: no symptoms Endocrine: Reports: no symptoms Hematologic/Lymphatic: Reports: no symptoms Allergies: Coded Allergies: No Known Allergies (Verified Allergy, Mild, 03/28/07) Subjective Pt reports that her pain is unchanged. IV access was lost and started on Dilaudid 4mg Q6H as needed with minimal pain relief. we will changed the Dilaudid IV to subQ. Objective Last 24 Hour Vital Signs Date Time Temp Pulse Resp B/P Pulse Ox O2 Delivery O2 Flow Rate FiO2 05/19/17 08:00 98.5 86 16 131/62 97 Room Air 05/19/17 07:44 78 16 Room Air 05/19/17 04:00 97.7 89 20 148/70 95 Room Air 05/19/17 00:05 98.7 97 20 109/65 93 Room Air 05/18/17 20:32 162/78 05/18/17 20:00 98.2 98 20 162/78 93 Room Air 05/18/17 19:10 85 16 Room Air 05/18/17 15:53 97.9 93 19 112/58 98 Room Air 05/18/17 12:00 96.9 86 19 109/66 Room Air 05/18/17 09:54 87 14 100 05/18/17 09:47 74 14 100 05/18/17 09:45 97.6 78 23 127/78 99 Nasal Cannula 3.0 05/18/17 09:32 83 24 125/75 98 Simple Mask 6.0 05/18/17 09:27 84 16 126/79 98 Simple Mask 6.0 05/18/17 09:22 97.1 71 18 112/67 98 Simple Mask 6.0 05/18/17 09:00 101/60 05/18/17 09:00 75 101/60 Intake and Output 05/18/17 05/19/17 19:00 07:00 Intake Total 680 ml 800 ml Balance 680 ml 800 ml Intake Oral 480 ml 800 ml IV Total 200 ml # Voids 5 4 Height (Feet): 5 Height (Inches): 5.00 Weight (Pounds): 165 Objective General Appearance: no apparent distress, alert EENT: normal ENT inspection Neck: normal alignment, supple Cardiovascular: normal rate, regular rhythm Respiratory/Chest: lungs clear, normal breath sounds Abdomen: non tender, soft Edema: no edema noted Arm (L), no edema noted Arm (R), no edema noted Leg (L), no edema noted Leg (R), no edema noted Pedal (L), no edema noted Pedal (R), no edema noted Generalized Neurologic: alert, oriented x 3 Skin: normal pigmentation LISBET KEANE May 19, 2017 08:38
[2017-05-19] MEDS: Docusate 100mg cap ORAL SCH ×2 (08:48→13:05)
[2017-05-19] MEDS: Sertraline 100mg tab ORAL SCH (08:49)
[2017-05-19] MEDS: Norco 10mg/325mg tab ORAL PRN ×2 (08:49→13:28)
[2017-05-19] MEDS: Aspirin EC 81mg tab ORAL SCH (08:49)
[2017-05-19] MEDS: LORazepam 1mg tab ORAL SCH (08:49)
[2017-05-19] MEDS: BuPROPion XL 150mg tab ORAL SCH (08:50)
[2017-05-19] MEDS: Losartan 50mg tab ORAL SCH (08:50)
[2017-05-19] MEDS: Heparin 5000 units/ml inj SUBQ SCH (08:51)
[2017-05-19] MEDS ORDERED: HYDROmorphone 1mg/ml Carpuject SUBQ PRN (09:00)
--- NOTE | 2017-05-19 10:54 | GI Progress Note ---
Assessment/Plan Problems: (1) Dysphagia ICD Codes: R13.10 - Dysphagia, unspecified SNOMED: 47148699, 853758143 (2) Anemia ICD Codes: D64.9 - Anemia, unspecified SNOMED: 248662122 (3) Odynophagia ICD Codes: R13.10 - Dysphagia, unspecified SNOMED: 18094302 Status: stable Status Narrative Discussed with Dr. Rice. Assessment/Plan S/P EGD SUMMARY OF FINDINGS: 1. Gastritis. 2. Esophagitis. 3. Hiatal hernia. ST evaluation reviewed >> SIGNIFICANT ESOPHAGEAL DYSPHAGIA. RECOMMENDATIONS: Follow up biopsy result and treat accordingly Reflux measures. PPI daily. diet per ST fu labs Subjective Subjective painful swallowing Objective Last 24 Hour Vital Signs Date Time Temp Pulse Resp B/P Pulse Ox O2 Delivery O2 Flow Rate FiO2 05/19/17 09:48 98.5 05/19/17 08:50 131/62 05/19/17 08:50 86 131/62 05/19/17 08:00 98.5 86 16 131/62 97 Room Air 05/19/17 07:44 78 16 Room Air 05/19/17 04:00 97.7 89 20 148/70 95 Room Air 05/19/17 00:05 98.7 97 20 109/65 93 Room Air 05/18/17 20:32 162/78 05/18/17 20:00 98.2 98 20 162/78 93 Room Air 05/18/17 19:10 85 16 Room Air 05/18/17 15:53 97.9 93 19 112/58 98 Room Air 05/18/17 12:00 96.9 86 19 109/66 Room Air Intake and Output 05/18/17 05/19/17 19:00 07:00 Intake Total 680 ml 800 ml Balance 680 ml 800 ml Intake Oral 480 ml 800 ml IV Total 200 ml # Voids 5 4 Height (Feet): 5 Height (Inches): 5.00 Weight (Pounds): 165 General Appearance: no apparent distress, alert Cardiovascular: normal rate Respiratory/Chest: normal breath sounds, no respiratory distress Abdominal Exam: normal bowel sounds, non tender, soft Extremities: normal range of motion Rosalva Washington N.P. May 19, 2017 10:54
[2017-05-19 12:00] VITALS: BP 111/59
[2017-05-19] MEDS ORDERED: PROTONIX40 MG ORAL (14:29)
--- NOTE | 2017-05-19 20:02 | Pulmonology Progress Note ---
Assessment/Plan Problems: (1) Dysphagia (2) Costochondritis (3) ACS (acute coronary syndrome) (4) Cervical spondylosis (5) Knee pain, left (6) Degenerative disc disease, cervical (7) Anxiety Assessment/Plan swallow study done upper endoscoy showed esophagitis, Ct of neck reviewed dilaudid to 2 mg/ q 3 hours. dc to short term rehab continue current pureed diet. Subjective ROS Limited/Unobtainable: No Constitutional: Reports: no symptoms HEENT: Repors: no symptoms Allergies: Coded Allergies: No Known Allergies (Verified Allergy, Mild, 03/28/07) Objective Last 24 Hour Vital Signs Date Time Temp Pulse Resp B/P Pulse Ox O2 Delivery O2 Flow Rate FiO2 05/19/17 14:27 97.1 05/19/17 12:00 97.1 81 17 111/59 96 Room Air 05/19/17 11:08 98.5 05/19/17 08:50 131/62 05/19/17 08:50 86 131/62 05/19/17 08:00 98.5 86 16 131/62 97 Room Air 05/19/17 07:44 78 16 Room Air 05/19/17 04:00 97.7 89 20 148/70 95 Room Air 05/19/17 00:05 98.7 97 20 109/65 93 Room Air 05/18/17 20:32 162/78 Intake and Output 05/18/17 05/19/17 19:00 07:00 Intake Total 680 ml 800 ml Balance 680 ml 800 ml Intake Oral 480 ml 800 ml IV Total 200 ml # Voids 5 4 Objective General Appearance: WD/WN HEENT: normocephalic, atraumatic Respiratory/Chest: chest wall non-tender, lungs clear Breasts: no masses Cardiovascular: normal peripheral pulses, normal rate Abdomen: normal bowel sounds, soft, non tender Genitourinary: normal external genitalia Extremities: no cyanosis Skin: no rash 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
--- NOTE | 2017-05-20 16:23 | Discharge Summary ---
Discharge Summary Hospital Course Date of Admission May 13, 2017 at 09:53 Date of Discharge May 19, 2017 at 14:57 Admitting Diagnosis copd exacerbation, chest pain HPI Mariposa Aguilar is a 66 year old female who was admitted on May 13, 2017 at 09: 53 for Chronic Obstructive Pulmonary Disease Exacerbation Hospital Course [id number] Discharge Discharge Disposition Patient was discharged to SNF/Subacute Facility(03) Discharge Diagnoses: Rosita Han NP May 20, 2017 16:23
--- NOTE | 2017-05-21 04:48 | Discharge Summary 2 SIG ---
DATE OF ADMISSION: 05/13/2017 DATE OF DISCHARGE: 05/19/2017 CONSULTANTS: 1. Efren Rice M.D. 2. Myah Tucker M.D. 3. Bill Vanegas M.D. 4. Wesley Cummings M.D. BRIEF HOSPITAL COURSE: The patient is a 66-year-old female, presented to ED due to increased chest tightness. She has history of COPD and reported difficulty breathing with chest tightness with accompanying nonproductive cough. At ED, she was given aspirin and breathing treatment. EKG was in normal sinus rhythm and x-ray showed no acute findings. She has history of cardiac disease and hypertension and was admitted to telemetry for evaluation of chest pain and COPD exacerbation. She underwent cardiac evaluation. Her electrocardiogram showed normal sinus rhythm with no ST to T-wave abnormalities of any significant degree. Troponin x2 were negative and proBNP was only 124. Toxicology screen was negative. Last echocardiogram done was in March and showed ejection fraction of 60% to 65% with grade 1 diastolic dysfunction. Antihypertensive blood pressure medications, Norvasc was started before, however, she indicates this medication makes her nervous. Hypertension may be anxiety driven. She was given lorazepam and low-dose losartan. She had history of depression and is on Lexapro and Zoloft. She was given pain management consisting of Dilaudid and [place]. She complained of on and off difficulty swallowing for the past two to three years. Symptoms are on right side only. CT scan of the neck showed mildly distended gas and fluid filled upper esophagus, probable age related dysmotility. No acute process otherwise with normal upper airway and no findings to suggest etiology of clinically stated sore throat. She underwent ENT evaluation with Dr. Vanegas. Sputum culture showed growth of normal upper respiratory luz. Gastrointestinal was consulted and the patient underwent EGD. On 05/18/[address] Rice, findings showed gastritis, esophagitis, and hiatal hernia. She was given proton pump inhibitors and reflux measures. Speech therapy evaluation done showed esophageal dysphagia, no aspiration, but had trace laryngeal penetration due to delayed swallow. She was recommended liquefied pureed like thin or nectar thick soup diet with small frequent meals and strict reflux and aspiration precautions. She was then discharged to a short-term rehabilitation. Advised to continue with pureed diet. FINAL DIAGNOSES: 1. Dysphagia. 2. Costochondritis. 3. Hypertension. 4. Anxiety with depression. 5. Chest pain, apparently with negative previous workup at other hospitals. 6. Obesity. 7. History of cervical spine disorder. 8. History of hepatitis C. 9. Degenerative disk disease, cervical. 10. Gastritis. 11. Esophagitis. 12. Hiatal hernia. DISPOSITION: The patient was discharged to [facility]. DISCHARGE MEDICATIONS: Refer to medication list. Jonathan Cochran M.D. I have been assigned to dictate discharge summary on this account and I was not involved in the patient's management. Rosita Han N.P. DR: Jose JOB#: [id number] CC:
== END 2017-05-19 14:57 | DRG 392 ==
LOC: EMR 09:14 → 2E 09:53 → EDBEDREQ 11:24 → EMR 11:41 → 2E 11:45 → 3E 05-16 14:32 → 4E 05-18 08:01
PROC: 0DB78ZX Excision of Stomach, Pylorus, Via Natural or Artificial Opening Endoscopic, Diagnostic (ICD-10-PCS; principal; 2017-05-18 09:14)
DX: R13.19 Other dysphagia (principal); J44.9 Chronic obstructive pulmonary disease, unspecified; I10 Essential (primary) hypertension; M94.0 Chondrocostal junction syndrome [Tietze]; K20.9 Esophagitis, unspecified; F41.8 Other specified anxiety disorders; M25.562 Pain in left knee; E66.9 Obesity, unspecified; Z86.19 Personal history of other infectious and parasitic diseases; K29.70 Gastritis, unspecified, without bleeding; K44.9 Diaphragmatic hernia without obstruction or gangrene; F17.200 Nicotine dependence, unspecified, uncomplicated; Z98.1 Arthrodesis status; M47.892 Other spondylosis, cervical region; M50.10 Cervical disc disorder with radiculopathy, unspecified cervical region
CPT/HCPCS: 36415; 70490; 71010; 76775; 80048; 80053; 80300; 81001; 81003; 82378; 82550; 82553; 82607; 82746; 83540; 83550; 83615; 83735; 83880; 84100; 84133; 84300; 84484; 84550; 85007; 85025; 85044; 85060; 85610; 85651; 85730; 87070; 87086; 87205; 89050; 92610; 93005; 94003; 94150; 94640; 94664; J2405

== ENCOUNTER 2017-06-19 16:15 | Inpatient (IN) | payer MEDICARE, OTHER ==
[~2017-06-19] VITALS: Ht 165.1 cm; Wt 81.2 kg
[~2017-06-19 16:15] MED LIST changes: +ATIVAN1 MG ORAL; +DILAUDID1 MG/M1 IVP; +PROTONIX40 MG ORAL
[2017-06-19] MEDS ORDERED: Nitroglycerin Subl 0.4mg tab SL PRN (16:45)
[2017-06-19 17:28] LABS: LYMPHOCYTES % (AUTO) 35.5 % (20.0-45.0); MEAN CORPUSCULAR VOLUME 93 FL (80-99); MEAN PLATELET VOLUME 9.2 FL (6.5-10.1); MONOCYTES % (AUTO) 6.3 % (1.0-10.0); NEUTROPHILS % (AUTO) 54.1 % (45.0-75.0); PLATELET COUNT 177 K/UL (150-450); RED BLOOD COUNT 4.08 M/UL (4.20-5.40); WHITE BLOOD COUNT 8.4 K/UL (4.8-10.8)
[2017-06-19] MEDS ORDERED: Norco 5mg/325mg tab ORAL ONE (17:45)
[2017-06-19 17:55] LABS: TROPONIN I < 0.30 ng/mL (<=0.30)
[2017-06-19 17:56] LABS: ALANINE AMINOTRANSFERASE 21 U/L (3-33); ALBUMIN/GLOBULIN RATIO 1.8 (1.0-2.7); ANION GAP 12 (5-15); ASPARTATE AMINO TRANSFERASE 23 U/L (5-40); CALCIUM 9.3 mg/dL (8.6-10.2); CARBON DIOXIDE 28 mEQ/L (20-30); CHLORIDE 105 mEQ/L (98-107); GLOMERULAR FILTRATION RATE > 60 mL/min (>60); HEMOLYSIS 0; POTASSIUM 4.1 mEQ/L (3.4-4.9); SODIUM 145 mEQ/L (135-145); TOTAL PROTEIN 6.9 g/dL (6.6-8.7)
[2017-06-19 18:00] VITALS: BP 131/64
[2017-06-19] MEDS ORDERED: K-TAB ER20 MEQ PO (18:00)
[2017-06-19 18:06] LABS: CKMB 1.5 ng/mL (< 3.8)
--- NOTE | 2017-06-19 18:32 | Emergency Room Report ---
History of Present Illness General Chief Complaint: Chest Pain Source: Patient Present Illness HPI 67-year-old female presents ED attending of chest pain. States chest pain started this morning. Start at rest. Pressure-like, 10 out of 10, radiating down the left arm. Denies shortness of breath. Notes history of hypertension. Denies smoking or drug use. Daughter aggravating relieving factors. Denies any other associated symptoms Allergies: Coded Allergies: No Known Allergies (Verified Allergy, Mild, 03/28/07) Patient History Past Medical History: HTN, COPD, psych hx Social History: Denies: smoking, alcohol use, drug use Now: No Immunizations: UTD Reviewed Nursing Documentation: PMH: Agreed, PSxH: Agreed Nursing Documentation-PMH Past Medical History: No History, Except For Hx Cardiac Problems: Yes Hx Hypertension: Yes Hx Pacemaker: No Hx Asthma: No Hx COPD: Yes Hx Diabetes: No Hx Cancer: No Hx Gastrointestinal Problems: No Hx Dialysis: No History Of Psychiatric Problem: Yes - panic attack Hx Neurological Problems: No Hx Cerebrovascular Accident: No Hx Seizures: No Review of Systems All Other Systems: negative except mentioned in HPI Physical Exam Vital Signs Date Time Temp Pulse Resp B/P (MAP) Pulse Ox O2 Delivery O2 Flow Rate FiO2 06/19/ 16:20 98.1 114 20 172/79 95 Room Air Sp02 EP Interpretation: reviewed, normal General Appearance: no apparent distress, alert, GCS 15, non-toxic Head: normocephalic, atraumatic Eyes: bilateral eye normal inspection, bilateral eye PERRL ENT: hearing grossly normal, normal pharynx, no angioedema, normal voice Neck: full range of motion, supple/symm/no masses Respiratory: chest non-tender, lungs clear, normal breath sounds, speaking full sentences Cardiovascular #1: regular rate, rhythm, no edema Cardiovascular #2: 2+ carotid (R), 2+ carotid (L), 2+ radial (R), 2+ radial (L) , 2+ dorsalis pedis (R), 2+ dorsalis pedis (L) Gastrointestinal: normal bowel sounds, non tender, soft, non-distended, no guarding, no rebound Rectal: deferred Genitourinary: normal inspection, no CVA tenderness Musculoskeletal: back normal, gait/station normal, normal range of motion, non- tender Neurologic: alert, oriented x3, responsive, motor strength/tone normal, sensory intact, speech normal Psychiatric: judgement/insight normal, memory normal, mood/affect normal, no suicidal/homicidal ideation Reflexes: 3+ bicep (R), 3+ bicep (L), 3+ tricep (R), 3+ tricep (L), 3+ knee (R) , 3+ knee (L) Skin: normal color, no rash, warm/dry, well hydrated Lymphatic: no adenopathy Medical Decision Making Diagnostic Impression: Primary Impression: ACS (acute coronary syndrome) ER Course Hospital Course 67-year-old female presents ED complaining of chest pain Differential diagnoses include: NM/unstable angina, contusion, muscle strain, PTX, rib fracture Clinical course Patient placed on stretcher. on classroom monitor. After initial history and physical I ordered labs, EKG, chest x-ray, ASA, NTG labs reviewed- no leukocytosis, hb/hct stable, electrolytes ok, trop negative EKG - sinus tachycardia, no acute ischemic changes interpreted by me Chest x-ray- no acute process, hyperinflated lungs Discussed with PMD Dr. Blake; he agreed that patient requires admission and asked that we admit to Dr. Cochran Case discussed with Dr. Cochran and he agreed to accept the patient to his service for further care and support I. I feel this is a highly complex case requiring extensive working including EKG/Rhythm strip, Xray/CT/US, Blood/urine lab work, repeat exams while in ED, and administration of strong opiates/narcotics for pain control, admission to hospital or close patient follow up. Diagnosis - ACS admitted to telemetry in serious condition Labs Test 06/19/17 17:15 White Blood Count 8.4 K/UL (4.8-10.8) Red Blood Count 4.08 M/UL (4.20-5.40) Hemoglobin 12.2 G/DL (12.0-16.0) Hematocrit 38.1 % (37.0-47.0) Mean Corpuscular Volume 93 FL (80-99) Mean Corpuscular Hemoglobin 30.0 PG (27.0-31.0) Mean Corpuscular Hemoglobin Concent 32.0 G/DL (32.0-36.0) Red Cell Distribution Width 14.0 % (11.6-14.8) Platelet Count 177 K/UL (150-450) Mean Platelet Volume 9.2 FL (6.5-10.1) Neutrophils (%) (Auto) 54.1 % (45.0-75.0) Lymphocytes (%) (Auto) 35.5 % (20.0-45.0) Monocytes (%) (Auto) 6.3 % (1.0-10.0) Eosinophils (%) (Auto) 3.0 % (0.0-3.0) Basophils (%) (Auto) 1.0 % (0.0-2.0) Sodium Level 145 mEQ/L (135-145) Potassium Level 4.1 mEQ/L (3.4-4.9) Chloride Level 105 mEQ/L (98-107) Carbon Dioxide Level 28 mEQ/L (20-30) Anion Gap 12 (5-15) Blood Urea Nitrogen 13 mg/dL (7-23) Creatinine 1.0 mg/dL (0.5-0.9) Estimat Glomerular Filtration Rate > 60 mL/min (>60) Glucose Level 146 mg/dL (74-106) Calcium Level 9.3 mg/dL (8.6-10.2) Total Bilirubin 0.2 mg/dL (0.0-1.2) Aspartate Amino Transf (AST/SGOT) 23 U/L (5-40) Alanine Aminotransferase (ALT/SGPT) 21 U/L (3-33) Alkaline Phosphatase 71 U/L (35-104) Total Creatine Kinase 74 U/L (26-140) Creatine Kinase MB 1.5 ng/mL (< 3.8) Creatine Kinase MB Relative Index 2.0 Troponin I < 0.30 ng/mL (<=0.30) Pro-B-Type Natriuretic Peptide 169 pg/mL (0-125) Total Protein 6.9 g/dL (6.6-8.7) Albumin 4.5 g/dL (3.5-5.2) Globulin 2.4 g/dL Albumin/Globulin Ratio 1.8 (1.0-2.7) EKG Diagnostic Results Rate: tachycardiac Rhythm: NSR ST Segments: no acute changes ASA given to the pt in ED: Yes Rhythm Strip Diag. Results EP Interpretation: yes Rhythm: NSR, no PVC's, no ectopy Chest X-Ray Diagnostic Results Chest X-Ray Diagnostic Results : Chest X-Ray Ordered: Yes # of Views/Limited/Complete: 1 View Indication: Chest Pain EP Interpretation: Yes Interpretation: no consolidation, no effusion, no pneumothorax, no acute cardiopulmonary disease Impression: No acute disease Electronically Signed by: Electronically signed by Lev Alva MD Last Vital Signs Date Time Temp Pulse Resp B/P (MAP) Pulse Ox O2 Delivery O2 Flow Rate FiO2 06/19/17 18:00 102 22 131/64 97 Room Air 06/19/17 16:20 98.1 Status: improved Disposition: ADMITTED INPATIENT Condition: Serious Referrals: CAN BLAKE (PCP) LEV ALVA M.D. Jun 19, 2017 18:32
[2017-06-19] MEDS ORDERED: Morphine Sulfate 4mg/ml Inj ONE (18:55)
[2017-06-19] MEDS ORDERED: Morphine Sulfate 4mg/ml Inj IVP ONE (19:00)
[2017-06-19 20:00] VITALS: BP 163/80
[2017-06-19] MEDS: LORazepam 1mg tab ORAL SCH (20:50)
[2017-06-19] MEDS: BuPROPion XL 150mg tab ORAL SCH (20:51)
[2017-06-20] VITALS (7 sets, daily range): BP systolic 93–141; BP diastolic 63–89
[2017-06-20] MEDS: BuPROPion XL 150mg tab ORAL SCH ×2 (08:19→21:31)
[2017-06-20] MEDS: LORazepam 1mg tab ORAL SCH ×2 (08:21→21:31)
[2017-06-20] MEDS: Heparin 5000 units/ml inj SUBQ SCH ×2 (08:24→21:33)
[2017-06-20] MEDS ORDERED: Sertraline 100mg tab ORAL SCH (09:00)
[2017-06-20] MEDS ORDERED: Tubing IV Secondary IV ONE (09:52)
--- NOTE | 2017-06-20 10:59 | Diagnostic Imaging Report ---
Indication: Chest pain Comparison: 05/13/17 A single view chest radiograph was obtained. Findings: Heart size is normal. Lungs are clear. Cervical plate noted. Bones are osteopenic. Impression: No acute disease
--- NOTE | 2017-06-20 11:35 | History and Physical ---
History of Present Illness General Date patient seen: Jun 20, 2017 Reason for Hospitalization: Chest Pain Present Illness HPI 67-year-old female with extensive past medical and psychiatric history, borderline personality disorder, chronic pain, presented to ER with CC of chest pain started yesterday morning at rest. Pressure-like, 10 out of 10, radiating down the left arm. Denies shortness of breath. Notes history of hypertension. Denies smoking or drug use. Denies any other associated symptoms. she is admitted to telemetry for further work up. Allergies: Coded Allergies: No Known Allergies (Verified Allergy, Mild, 03/28/07) Medication History Scheduled Amlodipine Besylate* (Amlodipine Besylate*), 5 MG ORAL DAILY, (Reported) Aspirin* (Aspir 81*), 81 MG ORAL DAILY, (Reported) Bupropion Hcl* (Wellbutrin Xl*), 150 MG ORAL BID, (Reported) Escitalopram Oxalate* (Lexapro*), 10 MG ORAL DAILY Hydrochlorothiazide* (Hydrochlorothiazide*), 25 MG ORAL DAILY, (Reported) Lorazepam* (Ativan*), 2 MG ORAL BID, (Reported) Lorazepam* (Ativan*), 2 MG ORAL EVERY 12 HOURS Pantoprazole* (Protonix*), 40 MG ORAL DAILY, (Reported) Potassium Chloride (K-Tab ER), Unknown Dose PO DAILY, (Reported) Rosuvastatin Calcium* (Crestor*), MG ORAL QHS, (Reported) Sertraline Hcl* (Zoloft*), 200 MG ORAL DAILY, (Reported) Scheduled PRN Hydrocodone Bit/Acetaminophen 5-325* ([place] 5-325 Tablet*), 1 TAB ORAL Q6HR PRN for For Pain, (Reported) Hydrocodone/Acetaminophen (Hydrocodon-Acetaminophn 10-325), 1 TAB ORAL Q4H PRN for For Pain, (Reported) Hydromorphone HCl (Hydromorphone HCl), 2 MG IVP EVERY 3 HOURS PRN Patient History Healthcare decision maker Resuscitation status Full Code Advanced Directive on File Review of Systems All Other Systems: negative except mentioned in HPI Physical Exam General Appearance: WD/WN Lines, tubes and drains: peripheral HEENT: normocephalic, atraumatic Neck: non-tender, normal alignment Respiratory/Chest: chest wall non-tender, lungs clear, normal breath sounds Cardiovascular/Chest: normal peripheral pulses, regular rhythm Abdomen: normal bowel sounds, non tender Genitourinary/Rectal: normal rectal exam, heme negative stool Extremities: normal range of motion Last 24 Hour Vital Signs Date Time Temp Pulse Resp B/P (MAP) Pulse Ox O2 Delivery O2 Flow Rate FiO2 06/20/17 09:34 92 20 126/66 06/20/17 08:34 97.1 111 21 116/87 96 Room Air 06/20/17 08:20 111 116/87 06/20/17 04:00 97.3 74 19 93/63 96 Room Air 06/20/17 04:00 83 06/20/17 00:00 97.6 94 20 141/72 96 Room Air 06/20/17 00:00 75 06/19/17 20:00 89 06/19/17 20:00 98.2 100 19 163/80 96 Room Air 06/19/17 19:27 99 13 156/68 98 Room Air 06/19/17 18:54 98.1 06/19/17 18:00 102 22 131/64 97 Room Air 06/19/17 16:46 132/98 06/19/17 16:30 114 20 Room Air 06/19/17 16:20 98.1 114 20 172/79 95 Room Air Intake and Output 06/20/17 06/21/17 19:00 07:00 Intake Total 240 ml Balance 240 ml Intake Oral 240 ml Laboratory Tests Test 06/19/17 17:15 White Blood Count 8.4 K/UL (4.8-10.8) Red Blood Count 4.08 M/UL (4.20-5.40) L Hemoglobin 12.2 G/DL (12.0-16.0) Hematocrit 38.1 % (37.0-47.0) Mean Corpuscular Volume 93 FL (80-99) Mean Corpuscular Hemoglobin 30.0 PG (27.0-31.0) Mean Corpuscular Hemoglobin Concent 32.0 G/DL (32.0-36.0) Red Cell Distribution Width 14.0 % (11.6-14.8) Platelet Count 177 K/UL (150-450) Mean Platelet Volume 9.2 FL (6.5-10.1) Neutrophils (%) (Auto) 54.1 % (45.0-75.0) Lymphocytes (%) (Auto) 35.5 % (20.0-45.0) Monocytes (%) (Auto) 6.3 % (1.0-10.0) Eosinophils (%) (Auto) 3.0 % (0.0-3.0) Basophils (%) (Auto) 1.0 % (0.0-2.0) Sodium Level 145 mEQ/L (135-145) Potassium Level 4.1 mEQ/L (3.4-4.9) Chloride Level 105 mEQ/L (98-107) Carbon Dioxide Level 28 mEQ/L (20-30) Anion Gap 12 (5-15) Blood Urea Nitrogen 13 mg/dL (7-23) Creatinine 1.0 mg/dL (0.5-0.9) H Estimat Glomerular Filtration Rate > 60 mL/min (>60) Glucose Level 146 mg/dL (74-106) H Calcium Level 9.3 mg/dL (8.6-10.2) Total Bilirubin 0.2 mg/dL (0.0-1.2) Aspartate Amino Transf (AST/SGOT) 23 U/L (5-40) Alanine Aminotransferase (ALT/SGPT) 21 U/L (3-33) Alkaline Phosphatase 71 U/L (35-104) Total Creatine Kinase 74 U/L (26-140) Creatine Kinase MB 1.5 ng/mL (< 3.8) Creatine Kinase MB Relative Index 2.0 Troponin I < 0.30 ng/mL (<=0.30) Pro-B-Type Natriuretic Peptide 169 pg/mL (0-125) H Total Protein 6.9 g/dL (6.6-8.7) Albumin 4.5 g/dL (3.5-5.2) Globulin 2.4 g/dL Albumin/Globulin Ratio 1.8 (1.0-2.7) Height (Feet): 5 Height (Inches): 5.00 Weight (Pounds): 179 Medications Current Medications Medications (Trade) Dose Ordered Sig/Star Route PRN Reason Start Time Stop Time Status Last Admin Dose Admin Amlodipine Besylate (Norvasc) 5 mg DAILY ORAL 06/20/17 09:00 07/20/17 08:59 06/20/17 08:20 Bupropion HCl (Wellbutrin XL) 150 mg Q12HR ORAL 06/19/17 21:00 07/19/17 20:59 06/20/17 08:19 Escitalopram Oxalate (Lexapro) 10 mg DAILY ORAL 06/20/17 09:00 07/20/17 08:59 06/20/17 08:20 Heparin Sodium (Porcine) (Heparin 5000 units/ml) 5,000 units EVERY 12 HOURS SUBQ 06/20/17 09:00 07/20/17 08:59 06/20/17 08:24 Hydromorphone HCl (Dilaudid) 2 mg Q3H PRN IVP Severe Pain (Pain Scale 7-10) 06/19/17 18:45 06/26/17 18:44 06/20/17 09:42 Lorazepam (Ativan) 2 mg EVERY 12 HOURS ORAL 06/19/17 21:00 06/26/17 20:59 06/20/17 08:21 Nitroglycerin (Ntg) 0.4 mg Q5M PRN SL Prn Chest Pain 06/19/17 16:45 06/19/17 16:46 Pantoprazole (Protonix) 40 mg DAILY ORAL 06/20/17 09:00 07/20/17 08:59 06/20/17 08:19 Sertraline HCl (Zoloft) 200 mg DAILY ORAL 06/20/17 09:00 07/20/17 08:59 06/20/17 08:21 Assessment/Plan Problem List: (1) ACS (acute coronary syndrome) ICD Codes: I24.9 - Acute ischemic heart disease, unspecified SNOMED: 149733149 (2) Costochondritis ICD Codes: M94.0 - Chondrocostal junction syndrome [[place]] SNOMED: 46891521 (3) GERD (gastroesophageal reflux disease) ICD Codes: K21.9 - Gastro-esophageal reflux disease without esophagitis SNOMED: 045020910 (4) History of fusion of cervical spine ICD Codes: Z98.1 - Arthrodesis status SNOMED: 69097417, 098203421 (5) Anxiety ICD Codes: F41.9 - Anxiety disorder, unspecified SNOMED: 24275151 (6) HTN (hypertension) ICD Codes: I10 - Essential (primary) hypertension SNOMED: 66033804 (7) Cervical spondylosis ICD Codes: M47.812 - Spondylosis without myelopathy or radiculopathy, cervical region SNOMED: 181166948 (8) Depression ICD Codes: F32.9 - Major depressive disorder, single episode, unspecified SNOMED: 88910293 Assessment/Plan serial ekg, troponin cardiology evaluation pain management cardio to see psych to see nicotine patch DEBBY CHUNG Jun 20, 2017 11:35
--- NOTE | 2017-06-20 15:19 | Cardiology Progress Note ---
Assessment/Plan Assessment/Plan chest wall reproducilbel on palpation htn hs somnolence due to pain meds ekg neg repet farnaz has had stres test previously reportedly normal [id number] Objective Last 24 Hour Vital Signs Date Time Temp Pulse Resp B/P (MAP) Pulse Ox O2 Delivery O2 Flow Rate FiO2 06/20/17 12:48 99.0 103 20 121/72 93 Room Air 06/20/17 09:34 92 20 126/66 06/20/17 08:34 97.1 111 21 116/87 96 Room Air 06/20/17 08:20 111 116/87 06/20/17 04:00 97.3 74 19 93/63 96 Room Air 06/20/17 04:00 83 06/20/17 00:00 97.6 94 20 141/72 96 Room Air 06/20/17 00:00 75 06/19/17 20:00 89 06/19/17 20:00 98.2 100 19 163/80 96 Room Air 06/19/17 19:27 99 13 156/68 98 Room Air 06/19/17 18:54 98.1 06/19/17 18:00 102 22 131/64 97 Room Air 06/19/17 16:46 132/98 06/19/17 16:30 114 20 Room Air 06/19/17 16:20 98.1 114 20 172/79 95 Room Air Intake and Output 06/20/17 06/21/17 19:00 07:00 Intake Total 480 ml Balance 480 ml Intake Oral 480 ml Laboratory Tests Test 06/19/17 17:15 White Blood Count 8.4 K/UL (4.8-10.8) Red Blood Count 4.08 M/UL (4.20-5.40) L Hemoglobin 12.2 G/DL (12.0-16.0) Hematocrit 38.1 % (37.0-47.0) Mean Corpuscular Volume 93 FL (80-99) Mean Corpuscular Hemoglobin 30.0 PG (27.0-31.0) Mean Corpuscular Hemoglobin Concent 32.0 G/DL (32.0-36.0) Red Cell Distribution Width 14.0 % (11.6-14.8) Platelet Count 177 K/UL (150-450) Mean Platelet Volume 9.2 FL (6.5-10.1) Neutrophils (%) (Auto) 54.1 % (45.0-75.0) Lymphocytes (%) (Auto) 35.5 % (20.0-45.0) Monocytes (%) (Auto) 6.3 % (1.0-10.0) Eosinophils (%) (Auto) 3.0 % (0.0-3.0) Basophils (%) (Auto) 1.0 % (0.0-2.0) Sodium Level 145 mEQ/L (135-145) Potassium Level 4.1 mEQ/L (3.4-4.9) Chloride Level 105 mEQ/L (98-107) Carbon Dioxide Level 28 mEQ/L (20-30) Anion Gap 12 (5-15) Blood Urea Nitrogen 13 mg/dL (7-23) Creatinine 1.0 mg/dL (0.5-0.9) H Estimat Glomerular Filtration Rate > 60 mL/min (>60) Glucose Level 146 mg/dL (74-106) H Calcium Level 9.3 mg/dL (8.6-10.2) Total Bilirubin 0.2 mg/dL (0.0-1.2) Aspartate Amino Transf (AST/SGOT) 23 U/L (5-40) Alanine Aminotransferase (ALT/SGPT) 21 U/L (3-33) Alkaline Phosphatase 71 U/L (35-104) Total Creatine Kinase 74 U/L (26-140) Creatine Kinase MB 1.5 ng/mL (< 3.8) Creatine Kinase MB Relative Index 2.0 Troponin I < 0.30 ng/mL (<=0.30) Pro-B-Type Natriuretic Peptide 169 pg/mL (0-125) H Total Protein 6.9 g/dL (6.6-8.7) Albumin 4.5 g/dL (3.5-5.2) Globulin 2.4 g/dL Albumin/Globulin Ratio 1.8 (1.0-2.7) CHARLETTE MORRIS Jun 20, 2017 15:18
--- NOTE | 2017-06-20 20:29 | Consultation ---
History of Present Illness General Chief Complaint: Chest Pain Present Illness HPI 67-year-old female with extensive past medical and psychiatric history, borderline personality disorder, chronic pain, presented to ER with CC of chest pain. during the eval the pt was dosing off as she just has gotten Dilaudid. the pt stated she was doing fine however the staff stated that she has been disruptive and manipulative. she was unable to participate Allergies: Coded Allergies: No Known Allergies (Verified Allergy, Mild, 03/28/07) Medication History Scheduled Amlodipine Besylate* (Amlodipine Besylate*), 5 MG ORAL DAILY, (Reported) Aspirin* (Aspir 81*), 81 MG ORAL DAILY, (Reported) Bupropion Hcl* (Wellbutrin Xl*), 150 MG ORAL BID, (Reported) Escitalopram Oxalate* (Lexapro*), 10 MG ORAL DAILY Hydrochlorothiazide* (Hydrochlorothiazide*), 25 MG ORAL DAILY, (Reported) Lorazepam* (Ativan*), 2 MG ORAL BID, (Reported) Lorazepam* (Ativan*), 2 MG ORAL EVERY 12 HOURS Pantoprazole* (Protonix*), 40 MG ORAL DAILY, (Reported) Potassium Chloride (K-Tab ER), Unknown Dose PO DAILY, (Reported) Rosuvastatin Calcium* (Crestor*), MG ORAL QHS, (Reported) Sertraline Hcl* (Zoloft*), 200 MG ORAL DAILY, (Reported) Scheduled PRN Hydrocodone Bit/Acetaminophen 5-325* ([place] 5-325 Tablet*), 1 TAB ORAL Q6HR PRN for For Pain, (Reported) Hydrocodone/Acetaminophen (Hydrocodon-Acetaminophn 10-325), 1 TAB ORAL Q4H PRN for For Pain, (Reported) Hydromorphone HCl (Hydromorphone HCl), 2 MG IVP EVERY 3 HOURS PRN Patient History History Provided By: Patient, Medical Record, Caregiver, PMD Healthcare decision maker Resuscitation status Full Code Advanced Directive on File Past Medical/Surgical History Past Medical/Surgical History: (1) copd (2) Sepsis (3) UTI (urinary tract infection) (4) Cervical radiculopathy (5) Bronchitis (6) Cervical herniated disc (7) Hypercholesteremia (8) Stenosis, spinal, lumbar (9) Chest pain (10) Chronic pain (11) COPD exacerbation (12) Knee pain, left (13) Degenerative disc disease, cervical (14) Odynophagia (15) Anemia (16) Dysphagia (17) Anxiety (18) Depression (19) Costochondritis (20) Cervical spondylosis (21) GERD (gastroesophageal reflux disease) (22) HTN (hypertension) (23) ACS (acute coronary syndrome) Review of Systems Constitutional: Reports: malaise, weakness Psychiatric: Reports: prior hx, anxiety, depressed feelings, emotional problems Physical Exam General Appearance: no apparent distress, alert Neurologic: alert, oriented x 3, responsive, depressed affect Last 24 Hour Vital Signs Date Time Temp Pulse Resp B/P (MAP) Pulse Ox O2 Delivery O2 Flow Rate FiO2 06/20/17 16:23 90 06/20/17 16:00 97.9 106 17 127/70 94 Room Air 06/20/17 12:48 99.0 103 20 121/72 93 Room Air 06/20/17 12:00 94 06/20/17 09:34 92 20 126/66 06/20/17 08:34 97.1 111 21 116/87 96 Room Air 06/20/17 08:20 111 116/87 06/20/17 08:00 100 06/20/17 04:00 97.3 74 19 93/63 96 Room Air 06/20/17 04:00 83 06/20/17 00:00 97.6 94 20 141/72 96 Room Air 06/20/17 00:00 75 Intake and Output 06/20/17 06/21/17 19:00 07:00 Intake Total 480 ml Balance 480 ml Intake Oral 480 ml # Voids 3 Height (Feet): 5 Height (Inches): 5.00 Weight (Pounds): 179 Medications Current Medications Medications (Trade) Dose Ordered Sig/Star Route PRN Reason Start Time Stop Time Status Last Admin Dose Admin Amlodipine Besylate (Norvasc) 5 mg DAILY ORAL 06/20/17 09:00 07/20/17 08:59 06/20/17 08:20 Bupropion HCl (Wellbutrin XL) 150 mg Q12HR ORAL 06/19/17 21:00 07/19/17 20:59 06/20/17 08:19 Escitalopram Oxalate (Lexapro) 10 mg DAILY ORAL 06/20/17 09:00 07/20/17 08:59 06/20/17 08:20 Heparin Sodium (Porcine) (Heparin 5000 units/ml) 5,000 units EVERY 12 HOURS SUBQ 06/20/17 09:00 07/20/17 08:59 06/20/17 08:24 Hydromorphone HCl (Dilaudid) 2 mg Q3H PRN IVP Severe Pain (Pain Scale 7-10) 06/20/17 18:12 06/27/17 18:11 Lorazepam (Ativan) 2 mg EVERY 12 HOURS ORAL 06/19/17 21:00 06/26/17 20:59 06/20/17 08:21 Nicotine (Nicoderm) 1 patch DAILY TDERMAL 06/20/17 13:00 07/20/17 12:59 06/20/17 13:56 Nitroglycerin (Ntg) 0.4 mg Q5M PRN SL Prn Chest Pain 06/19/17 16:45 06/19/17 16:46 Pantoprazole (Protonix) 40 mg DAILY ORAL 06/20/17 09:00 07/20/17 08:59 06/20/17 08:19 Sertraline HCl (Zoloft) 200 mg DAILY ORAL 06/20/17 09:00 07/20/17 08:59 06/20/17 08:21 Vitamin D (Vitamin D) 1,000 intlu DAILY ORAL 06/21/17 09:00 07/21/17 08:59 Assessment/Plan Status: stable, progressing Assessment/Plan cynthia corteso Sindy Abel M.D. Jun 20, 2017 20:29
[2017-06-20] MEDS: HYDROmorphone 2 MG in NS 55 ML IVPB PRN (22:53)
--- NOTE | 2017-06-20 23:00 | Consultation ---
DATE OF CONSULTATION: 06/20/2017 CARDIOLOGY CONSULTATION REFERRING PHYSICIAN: Jonathan Cochran M.D. REASON FOR REFERRAL: Chest pain. History of Present Illness: This is a 67-year-old female, who is known to me from prior evaluation and hospitalization. The patient is being seen because of chest pain. She tells me that she has had some pain in the right shoulder when she moves her arm around and when she moves that her chest wall also hurts. She is rather a poor historian at the present time. She apparently just got some pain medications, has become quite drowsy intermittently and she falls asleep during the conversation with me and is really unable to provide any meaningful history, but she distinctly does tell me that the pain gets worse when she moves her right shoulder around. In fact, she has to do that show me that the pain comes back. Past Medical History: Extensive, she has had several hospitalizations here, the latest one in May 2017 with history of dysphagia, costochondritis, hypertension, anxiety, depression, chest pain with negative prior workup, obesity, cervical spine disorder, hepatitis C, degenerative joint disease, gastritis, esophagitis, and hiatal hernia. During last evaluation apparently she has had this chest pain discomfort on prior occasions with negative workup at another hospital according to her herself. Repeat cardiac enzymes one that was negative and her EKG was negative and therefore this was not pursued any further. She comes in because of the same issue right now. She has history of elevated blood pressure. She has had history of fall, unsteady gait, anemia, hypertension, chronic obstructive pulmonary disease. Allergies: She is possibly allergic to NSAIDs, gets swollen, but she is apparently able to take aspirin. Social History: She smokes. She denies alcohol and she denies any drug. Review Of Systems: Really unable to obtain because of her drowsiness. PHYSICAL EXAMINATION: General: The patient to be elderly female that initially is walking around, during the interview while she sits down she falls asleep very easily. She used to get herself up and walks around little bit and again when she sits down she falls asleep. Her thought process is somewhat tangential and as she even asked us some unrelated questions. NECK: Supple. LUNGS: Appeared to be clear to auscultation and percussion. Cardiac: S1 is normal. S2 is normal. Regular rate and rhythm. No heaves, thrills, gallops, or rubs are noted. ABDOMEN: Soft and nontender. Positive bowel sounds. Extremities: There is no clubbing, cyanosis, nor is there any edema. Chest wall is exquisitely tender and seems to reproduce according to the patient the pain that she has been experiencing. Laboratory And Diagnostic Data: White count of 8.4, hemoglobin 12.2 with platelet count of 177,000. Sodium was 145, potassium 4.1, chloride 105, bicarbonate 28, BUN 13 and creatinine 1.0, glucose of 146. Her liver function tests are normal. Total CK 74. Troponin less than 0.03. ProBNP only 169. Albumin is 1.8. Troponin less than 0.03. Her imaging, chest x-ray showed no acute disease processes. Her telemetry data shows normal sinus rhythm. EKG shows normal sinus rhythm. No ST or T wave abnormalities, in fact, sinus tachycardia, otherwise fairly unremarkable EKG. ASSESSMENT AND PLAN: 1. Chest pain, most likely costochondritis. 2. Pain syndrome. 3. History of hypertension. 4. Anxiety, depression. 5. Obesity. 6. History of hepatitis C. 7. History of cervical spine disorder. Dr. Cochran, this patient was seen in cardiac consultation. The patient's electrocardiogram is unremarkable. Her symptoms seem to be producible and tenderness to palpation in the chest wall making costochondritis a likely possibility likely the source of this patient's pain. Cardiac enzymes will be checked as matter of routine. She has had an echocardiogram that was just performed in the past two months, probably I will not pursue those any further unless the cardiac enzymes are abnormal, which I would be relatively doubtful of. Welsey Cummings M.D. DR: CHANTALE JOB#: [id number] CC:
[2017-06-21] VITALS: BP 138/77
[2017-06-21] MEDS: HYDROmorphone 2 MG in NS 55 ML IVPB PRN ×2 (02:23→10:58)
[2017-06-21 04:00] VITALS: BP 115/77
[2017-06-21 07:05] LABS: TROPONIN I < 0.30 ng/mL (<=0.30)
[2017-06-21 07:49] VITALS: BP 157/77
[2017-06-21] MEDS: Vitamin D 1000 IU Tab ORAL SCH (09:57)
[2017-06-21] MEDS: Sertraline 50mg tab ORAL SCH (09:57)
[2017-06-21] MEDS: BuPROPion XL 150mg tab ORAL SCH (09:58)
[2017-06-21] MEDS: LORazepam 1mg tab ORAL SCH ×2 (09:59→20:46)
[2017-06-21] MEDS: Heparin 5000 units/ml inj SUBQ SCH ×2 (10:01→20:49)
[2017-06-21] MEDS ORDERED: Tubing IV Secondary IV ONE (11:04)
[2017-06-21 12:06] VITALS: BP 126/85
--- NOTE | 2017-06-21 14:19 | Pulmonology Progress Note ---
Assessment/Plan Problems: (1) ACS (acute coronary syndrome) (2) Costochondritis (3) GERD (gastroesophageal reflux disease) (4) History of fusion of cervical spine (5) Anxiety (6) HTN (hypertension) (7) Cervical spondylosis (8) Depression Assessment/Plan f/u psyc recommendation pain specialist called med/surg Thank you Subjective ROS Limited/Unobtainable: No Interval Events: still c/o pain Constitutional: Reports: no symptoms HEENT: Repors: no symptoms Allergies: Coded Allergies: No Known Allergies (Verified Allergy, Mild, 03/28/07) Objective Last 24 Hour Vital Signs Date Time Temp Pulse Resp B/P (MAP) Pulse Ox O2 Delivery O2 Flow Rate FiO2 06/21/17 12:06 98.4 86 18 126/85 95 Room Air 06/21/17 09:58 88 157/77 06/21/17 07:49 98.6 88 18 157/77 96 Room Air 06/21/17 04:00 92 06/21/17 04:00 99.5 94 24 115/77 90 Room Air 06/21/17 00:00 101 06/21/17 00:00 100.0 106 24 138/77 92 Room Air 06/20/17 20:00 100.8 109 20 131/64 90 Room Air 06/20/17 20:00 110 06/20/17 16:23 90 06/20/17 16:00 97.9 106 17 127/70 94 Room Air Intake and Output 06/21/17 06/22/17 19:00 07:00 Intake Total 360 ml Balance 360 ml Intake Oral 360 ml # Voids 2 HEENT: normocephalic, atraumatic Respiratory/Chest: chest wall non-tender, lungs clear Cardiovascular: no JVD Abdomen: soft, non tender Extremities: no cyanosis Skin: no rash Laboratory Tests 06/21/17 06:40: Troponin I < 0.30 Current Medications Medications (Trade) Dose Ordered Sig/Star Route PRN Reason Start Time Stop Time Status Last Admin Dose Admin Amlodipine Besylate (Norvasc) 5 mg DAILY ORAL 06/20/17 09:00 07/20/17 08:59 06/21/17 09:58 Bupropion HCl (Wellbutrin XL) 150 mg Q12HR ORAL 06/19/17 21:00 07/19/17 20:59 06/21/17 09:58 Heparin Sodium (Porcine) (Heparin 5000 units/ml) 5,000 units EVERY 12 HOURS SUBQ 06/20/17 09:00 07/20/17 08:59 06/21/17 10:01 Hydromorphone HCl 2 mg/Sodium Chloride 56 ml @ 224 mls/hr Q3H PRN IVPB Severe Pain (Pain Scale 7-10) 06/20/17 22:00 06/27/17 21:59 06/21/17 10:58 Lorazepam (Ativan) 2 mg EVERY 12 HOURS ORAL 06/19/17 21:00 06/26/17 20:59 06/21/17 09:59 Nicotine (Nicoderm) 1 patch DAILY TDERMAL 06/20/17 13:00 07/20/17 12:59 06/21/17 09:59 Nitroglycerin (Ntg) 0.4 mg Q5M PRN SL Prn Chest Pain 06/19/17 16:45 06/19/17 16:46 Pantoprazole (Protonix) 40 mg DAILY ORAL 06/20/17 09:00 07/20/17 08:59 06/21/17 09:58 Sertraline HCl (Zoloft) 150 mg DAILY ORAL 06/21/17 09:00 07/21/17 08:59 06/21/17 09:57 Vitamin D (Vitamin D) 1,000 intlu DAILY ORAL 06/21/17 09:00 07/21/17 08:59 06/21/17 09:57 DEBBY CHUNG Jun 21, 2017 14:19
[2017-06-21 16:20] VITALS: BP 135/51
--- NOTE | 2017-06-21 19:03 | Cardiology Report ---
APPROVED REPORT EKG Measurement Heart [id number] VT 138P56 [id number] Normal sinus rhythm Normal ECG
--- NOTE | 2017-06-21 19:08 | Cardiology Report ---
APPROVED REPORT EKG Measurement Heart [id number] ND 156P64 [id number] Sinus tachycardia Otherwise normal ECG
--- NOTE | 2017-06-21 19:38 | General Progress Note ---
Assessment/Plan Status: stable Assessment/Plan mdd, cluster B -dc sitter -changed welbutrin -zoloft -add seroquel0 Subjective Neurologic/Psychiatric: Reports: anxiety, depressed, emotional problems Allergies: Coded Allergies: No Known Allergies (Verified Allergy, Mild, 03/28/07) Subjective the pt has borderline tendencies. the pt doesn't get along with family. the pt has med seeking behavior. the pt pulled out IV denies. poor insight. superficial affect. c/o pain and anxiety. looks comfortable and not in pain. Objective Last 24 Hour Vital Signs Date Time Temp Pulse Resp B/P (MAP) Pulse Ox O2 Delivery O2 Flow Rate FiO2 06/21/17 16:20 97.7 86 18 135/51 97 Room Air 06/21/17 16:00 86 06/21/17 12:06 98.4 86 18 126/85 95 Room Air 06/21/17 12:00 87 06/21/17 09:58 88 157/77 06/21/17 08:00 91 06/21/17 07:49 98.6 88 18 157/77 96 Room Air 06/21/17 04:00 92 06/21/17 04:00 99.5 94 24 115/77 90 Room Air 06/21/17 00:00 101 06/21/17 00:00 100.0 106 24 138/77 92 Room Air 06/20/17 20:00 100.8 109 20 131/64 90 Room Air 06/20/17 20:00 110 Intake and Output 06/21/17 06/22/17 19:00 07:00 Intake Total 480 ml Balance 480 ml Intake Oral 480 ml # Voids 4 # Bowel Movements 2 Laboratory Tests 06/21/17 06:40: Troponin I < 0.30 Height (Feet): 5 Height (Inches): 5.00 Weight (Pounds): 179 General Appearance: no apparent distress, alert, overweight Neurologic: alert, oriented x 3, responsive, normal mood/affect Sindy Francois M.D. Jun 21, 2017 19:38
--- NOTE | 2017-06-21 20:12 | Cardiology Progress Note ---
Assessment/Plan Assessment/Plan 1. Chest pain, most likely costochondritis. 2. Pain syndrome. 3. History of hypertension. 4. Anxiety, depression. 5. Obesity. 6. History of hepatitis C. 7. History of cervical spine disorder ekg neg repeat trop neg tele neg has had stres test previously reportedly normal bnp low dc tele Subjective Subjective hurts all over no sob not need breathign treatment , want stool softerner Objective Last 24 Hour Vital Signs Date Time Temp Pulse Resp B/P (MAP) Pulse Ox O2 Delivery O2 Flow Rate FiO2 06/21/17 16:20 97.7 86 18 135/51 97 Room Air 06/21/17 16:00 86 06/21/17 12:06 98.4 86 18 126/85 95 Room Air 06/21/17 12:00 87 06/21/17 09:58 88 157/77 06/21/17 08:00 91 06/21/17 07:49 98.6 88 18 157/77 96 Room Air 06/21/17 04:00 92 06/21/17 04:00 99.5 94 24 115/77 90 Room Air 06/21/17 00:00 101 06/21/17 00:00 100.0 106 24 138/77 92 Room Air General Appearance: other - falls asleep Cardiovascular: normal rate, regular rhythm Respiratory/Chest: lungs clear, normal breath sounds Abdomen: normal bowel sounds, non tender, soft Extremities: no swelling Intake and Output 06/21/17 06/22/17 19:00 07:00 Intake Total 480 ml Balance 480 ml Intake Oral 480 ml # Voids 4 # Bowel Movements 2 Laboratory Tests Test 06/21/17 06:40 Troponin I < 0.30 ng/mL (<=0.30) CHARLETTE MORRIS Jun 21, 2017 20:12
[2017-06-21 20:30] VITALS: BP 119/59
[2017-06-22] VITALS: BP 102/64
[2017-06-22 03:53] VITALS: BP 115/60
[2017-06-22 07:42] VITALS: BP 121/58
--- NOTE | 2017-06-22 08:37 | General Progress Note ---
Assessment/Plan Assessment/Plan (1) Degenerative disc disease, cervical (2) Cervical spondylosis (3) Cervical herniated disc (4) Cervical radiculopathy (5) History of fusion of cervical spine We will continue Dilaudid and start Percocet 10/325mg PO 1tab Q4H PRN. D/w Dr. Tucker and he concurred. Thank you for the courtesy of this consultation Subjective Date patient seen: Jun 22, 2017 Time patient seen: 07:30 - am Allergies: Coded Allergies: No Known Allergies (Verified Allergy, Mild, 03/28/07) Subjective Constitutional: Denies: chills, diaphoresis, fever, malaise, no symptoms, other , weakness HEENT: Denies: blurred vision, double vision, ear discharge, ear pain, eye pain , mouth pain, mouth swelling, no symptoms, nose congestion, nose pain, other, tearing, throat pain, throat swelling Cardiovascular: Denies: chest pain, edema, irregular heart rate, lightheadedness, no symptoms, other, palpitations, syncope Respiratory: Denies: SOB at rest, SOB with excertion, cough, no symptoms, orthopnea, other, shortness of breath, sputum, stridor, wheezing Gastrointestinal/Abdominal: Denies: abdomen distended, abdominal pain, black stools, blood in stool, constipated, diarrhea, difficulty swallowing, nausea, no symptoms, other, poor appetite, poor fluid intake, rectal bleeding, tarry stools, vomiting Genitourinary: Denies: burning, discharge, flank pain, frequency, hematuria, incontinence, no symptoms, other, pain, urgency Neurologic/Psychiatric: Denies: anxiety, depressed, emotional problems, headache, no symptoms, numbness, other, paresthesia, pre-existing deficit, seizure, tingling, tremors, weakness Endocrine: Denies: excessive sweating, flushing, increased hunger, increased thirst, increased urine, intolerance to cold, intolerance to heat, no symptoms, other, unexplained weight gain, unexplained weight loss Hematologic/Lymphatic: Denies: anemia, easy bleeding, easy bruising, no symptoms, other Subjective Pt is a known patient from prior admission now returns due to ACS. She has been c/o severe neck pain and was started on Dilaudid 2mg IV Q3H PRN severe pain. Objective Last 24 Hour Vital Signs Date Time Temp Pulse Resp B/P (MAP) Pulse Ox O2 Delivery O2 Flow Rate FiO2 06/22/17 07:42 98.1 91 20 121/58 95 Room Air 06/22/17 04:00 95 06/22/17 03:53 97.7 90 19 115/60 98 Room Air 06/22/17 00:00 97.7 95 19 102/64 98 Room Air 06/22/17 00:00 114 06/21/17 20:30 97.7 92 19 119/59 98 Nasal Cannula 06/21/17 20:00 89 06/21/17 16:20 97.7 86 18 135/51 97 Room Air 06/21/17 16:00 86 06/21/17 12:06 98.4 86 18 126/85 95 Room Air 06/21/17 12:00 87 06/21/17 09:58 88 157/77 Height (Feet): 5 Height (Inches): 5.00 Weight (Pounds): 179 Objective General Appearance: no apparent distress, alert EENT: normal ENT inspection Neck: normal alignment, supple Cardiovascular: normal rate, regular rhythm Respiratory/Chest: lungs clear, normal breath sounds Abdomen: non tender, soft Edema: no edema noted Arm (L), no edema noted Arm (R), no edema noted Leg (L), no edema noted Leg (R), no edema noted Pedal (L), no edema noted Pedal (R), no edema noted Generalized Neurologic: alert, oriented x 3 Skin: normal pigmentation LISBET KEANE Jun 22, 2017 08:37
[2017-06-22] MEDS ORDERED: BuPROPion XL 300mg tab ORAL SCH (09:00)
[2017-06-22] MEDS: LORazepam 1mg tab ORAL SCH (09:32)
[2017-06-22] MEDS: Vitamin D 1000 IU Tab ORAL SCH (09:33)
[2017-06-22] MEDS: Sertraline 50mg tab ORAL SCH (09:35)
[2017-06-22] MEDS: Heparin 5000 units/ml inj SUBQ SCH (09:38)
[2017-06-22 12:02] VITALS: BP 151/71
[2017-06-22] MEDS ORDERED: Nitroglycerin Subl 0.4mg tab SL PRN (12:15)
[2017-06-22 15:46] VITALS: BP 98/53
[2017-06-22] MEDS ORDERED: NORCO 5-325 TA1 EAC1 ORAL (17:32)
[2017-06-22] MEDS ORDERED: Heparin 5000 units/ml inj SUBQ SCH (21:00)
[2017-06-22] MEDS ORDERED: LORazepam 1mg tab ORAL SCH (21:00)
--- NOTE | 2017-06-22 22:57 | Pulmonology Progress Note ---
Assessment/Plan Problems: (1) ACS (acute coronary syndrome) (2) Costochondritis (3) GERD (gastroesophageal reflux disease) (4) History of fusion of cervical spine (5) Anxiety (6) HTN (hypertension) (7) Cervical spondylosis (8) Depression Assessment/Plan f/u psyc recommendation pain specialist called med/surg dc homw with outpatient pain management Subjective ROS Limited/Unobtainable: No Constitutional: Reports: no symptoms HEENT: Repors: no symptoms Respiratory: Reports: no symptoms Allergies: Coded Allergies: No Known Allergies (Verified Allergy, Mild, 03/28/07) Objective Last 24 Hour Vital Signs Date Time Temp Pulse Resp B/P (MAP) Pulse Ox O2 Delivery O2 Flow Rate FiO2 06/22/17 15:46 97.7 79 20 98/53 95 Room Air 06/22/17 12:02 97.9 84 18 151/71 94 Room Air 06/22/17 09:33 91 121/58 06/22/17 07:42 98.1 91 20 121/58 95 Room Air 06/22/17 04:00 95 06/22/17 03:53 97.7 90 19 115/60 98 Room Air 06/22/17 00:00 97.7 95 19 102/64 98 Room Air 06/22/17 00:00 114 Intake and Output 06/22/17 06/23/17 19:00 07:00 Intake Total 720 ml Balance 720 ml Intake Oral 720 ml # Voids 3 # Bowel Movements 1 General Appearance: WD/WN HEENT: normocephalic, atraumatic Respiratory/Chest: chest wall non-tender, lungs clear Cardiovascular: normal peripheral pulses, normal rate Abdomen: normal bowel sounds, soft, non tender Extremities: no cyanosis Skin: no rash Neurologic/Psychiatric: ticket manager II-XII grossly normal, no motor/sensory deficits DEBBY CHUNG Jun 22, 2017 22:57
--- NOTE | 2017-06-23 06:45 | Progress Note ---
DATE: 06/22/2017 Subjective: The patient is presenting with anxiety, depressed mood, anhedonia, hopelessness, and decreased energy. Mental Status Examination: The patient is alert and oriented times self, place, and situation she is in. Mood is depressed. Affect is constricted, congruent with mood. Thought process is concrete. Thought content, no suicidal or homicidal ideation. ASSESSMENT: 1. Depression. 2. Opiate dependence. PLAN: We will continue to follow and readjust the medications. Sindy Francois M.D. DR: Roly JOB#: [id number] CC:
[2017-06-23] MEDS ORDERED: BuPROPion XL 300mg tab ORAL SCH (09:00)
[2017-06-23] MEDS ORDERED: Vitamin D 1000 IU Tab ORAL SCH (09:00)
[2017-06-23] MEDS ORDERED: Sertraline 50mg tab ORAL SCH (09:00)
--- NOTE | 2017-06-24 09:11 | Discharge Summary ---
Discharge Summary Hospital Course Date of Admission Jun 19, 2017 at 17:26 Date of Discharge Jun 22, 2017 at 18:10 Admitting Diagnosis acute coronary syndrome HPI Mariposa Aguilar is a 67 year old female who was admitted on Jun 19, 2017 at 17: 26 for Acute Coronary Syndrome Hospital Course [id number] Discharge Discharge Disposition Patient was discharged to Home (01) Discharge Diagnoses: Rosita Han NP Jun 24, 2017 09:11
--- NOTE | 2017-06-25 05:00 | Discharge Summary 2 SIG ---
DATE OF ADMISSION: 06/19/2017 DATE OF DISCHARGE: 06/22/2017 CONSULTANTS: 1. Sindy Francois M.D. 2. Myah Tucker M.D. 3. Wesley Cummings M.D. Brief Hospital Course: The patient is a 67-year-old female with extensive past medical and psychiatric history, borderline personality disorder and chronic pain presented to ED complaining of chest pain that started the day prior to admission. It was described to be pressure like 10/10 and radiating to the left arm. On evaluation at ED, laboratories showed no leukocytosis. Initial troponin was negative. EKG was in sinus tachycardia with no acute ischemic changes. Chest x-ray showed no acute process with hyperinflated lungs. She was admitted to telemetry for acute coronary syndrome and underwent cardiac evaluation with Dr. Cummings. An electrocardiogram was remarkable. Her symptoms seem to be reproducible and there was tenderness to palpation in the chest wall making costochondritis possibility source of the patient's pain. Echocardiogram performed two months ago showed EF of 60% to 65% with normal left ventricular size, function, and wall motion. Negative for pericardial fat or effusion. She had a previous stress test that was negative. Cardiac enzymes were monitored and remained negative. She was given pain management consisting of Dilaudid and Percocet. The patient had been disruptive and manipulative and doses of every time getting pain medications. She was diagnosed with major depressive disorder and cluster B personality. Initially Lexapro was discontinued and was given Zoloft, however Zoloft was eventually discontinued and was changed to Wellbutrin. Seroquel was added. The patient has a borderline tendency and does not get along with family members. She had medication seeking behavior and has poor insight into her medical condition. She was eventually cleared for discharge home and was recommended to follow up with outpatient painting trades worker. FINAL DIAGNOSES: 1. Costochondritis. 2. Gastroesophageal reflux disease. 3. Cervical spine radiculopathy with spondylosis. 4. Prior fusion on cervical spine. 5. Anxiety 6. Hypertension. 7. Major depressive disorder. 8. Obesity. 9. Pain syndrome. DISPOSITION: The patient was discharged home. Followup: Advised to follow up with pain management and PMD in a week. DISCHARGE MEDICATIONS: Refer to medication list. Jonathan Cochran M.D. I have been assigned to dictate discharge summary on this account and I was not involved in the patient's management. Rosita Han N.P. DR: MARISSA JOB#: [id number] CC:
== END 2017-06-22 18:10 | disposition home or self-care (01) | DRG 206 ==
LOC: EMR 16:35 → 2E 17:26 → EDBEDREQ 17:51 → 2E 06-20 16:36 → 4W 06-22 10:45
DX: M94.0 Chondrocostal junction syndrome [Tietze] (principal); J44.9 Chronic obstructive pulmonary disease, unspecified; F11.20 Opioid dependence, uncomplicated; I10 Essential (primary) hypertension; K21.9 Gastro-esophageal reflux disease without esophagitis; Z98.1 Arthrodesis status; F41.9 Anxiety disorder, unspecified; F32.9 Major depressive disorder, single episode, unspecified; F60.3 Borderline personality disorder; G89.29 Other chronic pain; Z91.81 History of falling; F17.200 Nicotine dependence, unspecified, uncomplicated; Z86.19 Personal history of other infectious and parasitic diseases; M50.30 Other cervical disc degeneration, unspecified cervical region; Z76.5 Malingerer [conscious simulation]; M50.10 Cervical disc disorder with radiculopathy, unspecified cervical region; M47.22 Other spondylosis with radiculopathy, cervical region; E66.9 Obesity, unspecified
CPT/HCPCS: 36415; 71010; 80053; 82550; 82553; 82962; 83880; 84484; 85025; 93005; 99285

== ENCOUNTER 2017-07-31 16:58 | Emergency (ER) | payer MEDICARE, OTHER ==
[~2017-07-31] VITALS: Ht 165.1 cm; Wt 74.8 kg
[~2017-07-31 16:58] MED LIST changes: +K-TAB ER20 MEQ PO
[2017-07-31 17:06] VITALS: BP 138/74
[2017-07-31] MEDS ORDERED: IBUPROFEN600 MG ORAL (17:19)
--- NOTE | 2017-07-31 17:23 | Emergency Room Report ---
History of Present Illness General Chief Complaint: Chest Pain Source: Patient, Medical Record Present Illness HPI [id number] with left sided chest pain since yesterday Worse with movement Worse when she pushes on it No fever/chills, SOB, cough Was here multiple times in ED/hospitalized for similar Per recent Cardiology consult: 1. Chest pain, most likely costochondritis. 2. Pain syndrome. Serial trop negative. Tele negative. Recent negative Stress test as well. States cant take tylenol because "bad for your liver." Took ibuprofen "a while ago." Allergies: Coded Allergies: No Known Allergies (Verified Allergy, Mild, 03/28/07) Patient History Past Medical History: see triage record, old chart reviewed Past Surgical History: none Pertinent Family History: none Social History: Denies: smoking, alcohol use, drug use Now: No Immunizations: UTD Reviewed Nursing Documentation: PMH: Agreed, PSxH: Agreed Nursing Documentation-PMH Past Medical History: No History, Except For Hx Cardiac Problems: Yes Hx Hypertension: Yes Hx Pacemaker: No Hx Asthma: No Hx COPD: Yes Hx Diabetes: No Hx Cancer: No Hx Gastrointestinal Problems: No Hx Dialysis: No Hx Neurological Problems: No Hx Cerebrovascular Accident: No Hx Seizures: No Review of Systems All Other Systems: negative except mentioned in HPI Physical Exam Vital Signs Date Time Temp Pulse Resp B/P (MAP) Pulse Ox O2 Delivery O2 Flow Rate FiO2 07/31/17 17:03 98.8 96 18 147/86 99 Room Air Sp02 EP Interpretation: reviewed, normal General Appearance: normal inspection, well appearing, no apparent distress, alert, GCS 15, non-toxic Head: normocephalic, atraumatic Eyes: bilateral eye PERRL, bilateral eye EOMI ENT: normal ENT inspection, hearing grossly normal, normal voice Neck: normal inspection, full range of motion, supple, no bony tend Respiratory: normal inspection, lungs clear, normal breath sounds, no respiratory distress, no retraction, no wheezing Cardiovascular #1: regular rate, rhythm, no edema Gastrointestinal: normal inspection, normal bowel sounds, non tender, soft, no guarding, no hernia Genitourinary: no CVA tenderness Musculoskeletal: normal inspection, back normal, normal range of motion, Bar' s Sign negative Neurologic: normal inspection, alert, oriented x3, responsive, first assistant manager III-XII nml as tested, motor strength/tone normal, speech normal Psychiatric: normal inspection, judgement/insight normal, mood/affect normal Skin: normal inspection, normal color, no rash Lymphatic: normal inspection Medical Decision Making Diagnostic Impression: Primary Impression: Costochondritis ER Course Chest pain for 2 days Very reproducible, worse with movement No signs/symptoms of PNA Had recent negative workup Multiple visits for same gave IM toradol here ECG reassuring - no ischemia or arryhtmia Reassured patient Rx Motrin PMD followup as needed EKG Diagnostic Results Rhythm: NSR ST Segments: no acute changes ASA given to the pt in ED: No Rhythm Strip Diag. Results EP Interpretation: yes Rate: 96 Rhythm: NSR, no PVC's, no ectopy Last Vital Signs Date Time Temp Pulse Resp B/P (MAP) Pulse Ox O2 Delivery O2 Flow Rate FiO2 07/31/17 17:06 98.6 94 16 138/74 100 Room Air Status: improved Disposition: HOME, SELF-CARE Condition: Improved Scripts Ibuprofen* (MOTRIN*) 600 Mg Tablet 600 MG ORAL THREE TIMES A DAY for For Pain for 7 Days, #30 TAB 0 Refills Prov: CARMEN JEONG M.D. 07/31/17 Patient Instructions: Costochondritis, [id number] Additional Instructions: - Take ibuprofen 600mg every 8 hours with food as needed - Follow up with your doctor in 2-3 days CARMEN JEONG M.D. Jul 31, 2017 17:22
[2017-07-31 17:25] VITALS: BP 142/88
[2017-07-31] MEDS ORDERED: Ketorolac 60mg Inj IM ONE (17:30)
== END 2017-07-31 17:30 | disposition home or self-care (01) ==
LOC: EMR 17:15
DX: M94.0 Chondrocostal junction syndrome [Tietze] (principal); I10 Essential (primary) hypertension; J44.9 Chronic obstructive pulmonary disease, unspecified
CPT/HCPCS: 96372; 99283

== ENCOUNTER 2018-02-05 16:59 | Inpatient (IN) | payer MEDICARE, OTHER ==
[~2018-02-05] VITALS: Ht 165.1 cm; Wt 87.1 kg
[~2018-02-05 16:59] MED LIST changes: +IBUPROFEN600 MG ORAL
[2018-02-05 17:45] VITALS: BP 157/76
[2018-02-05] MEDS ORDERED: Morphine Sulfate 4mg/ml Inj IVP ONE (18:15)
[2018-02-05] MEDS ORDERED: Ketorolac 30mg Inj IV ONE (18:15)
--- NOTE | 2018-02-05 18:24 | Emergency Room Report ---
History of Present Illness General Chief Complaint: Pain Source: Patient (Kip Tapia) Present Illness HPI 67-year-old female patient presents ER complaining of back pain. She reports a history of spinal stenosis. reports pain radiates down her legs bilaterally. Patient reports "I need to be admitted to the hospital" because she feels she is not going to be able to walk, states pain has worsened. Patient reports she normally takes [place] for pain but that does not help alleviate her symptoms. Patient reports she is currently being seen by pain management. Patient reports no history of lower back pain surgery. Patient denies history of kidney stone. Patient denies bowel or bladder problems. denies dysuria, hematuria. Patient denies fever, chest pain, shortness of breath, abdominal pain. (Kip Tapia) Allergies: Coded Allergies: No Known Allergies (Verified Allergy, Mild, 03/28/07) Patient History Past Medical History: see triage record Reviewed Nursing Documentation: PMH: Agreed; PSxH: Agreed (Kip Tapia) Nursing Documentation-PMH Past Medical History: No History, Except For Hx Cardiac Problems: Yes Hx Hypertension: Yes Hx Pacemaker: No Hx Asthma: No Hx COPD: Yes Hx Diabetes: No Hx Cancer: No Hx Gastrointestinal Problems: No Hx Dialysis: No Hx Cerebrovascular Accident: No Hx Seizures: No (Kip Tapia) Review of Systems All Other Systems: negative except mentioned in HPI (Kip Tapia) Physical Exam Vital Signs Date Time Temp Pulse Resp B/P (MAP) Pulse Ox O2 Delivery O2 Flow Rate FiO2 18 17:15 98.9 96 17 157/76 95 Room Air 99.0 Sp02 EP Interpretation: reviewed, normal General Appearance: well appearing, no apparent distress, alert, GCS 15, non- toxic Head: normocephalic, atraumatic Eyes: bilateral eye normal inspection, bilateral eye PERRL Respiratory: lungs clear, normal breath sounds, no rhonchi, no respiratory distress, no accessory muscle use, no wheezing, speaking full sentences Cardiovascular #1: regular rate, rhythm, no edema Musculoskeletal: decreased range of motion - secondary to pain, tender - lumbar spine, lumbosacral region bilaterally Neurologic: alert, oriented x3, responsive, motor strength/tone normal, sensory intact, other - SLR positive Skin: no rash (Kip Tapia) Medical Decision Making PA Attestation Dr. Smith is my supervising Physician whom patient management has been discussed with. (iKp Tapia) Medicare Attestation The history of Mariposa Aguilar has been reviewed and management options for her have been examined and discussed by Bam Smith. I have personally examined and interviewed the patient. I agree with the exam and workup Patient's blood work reviewed Also showing UTI symptoms Patient unable to bear weight Increased pain requiring inpatient care (Bam Smith DO) Diagnostic Impression: Primary Impression: Back pain Additional Impressions: Hx of spinal stenosis UTI (urinary tract infection) ER Course Pt presents to ED c/o back pain. DDX considered but are not limited to sprain, strain, cauda equina, UTI, spinal stenosis. Low suspicion for cauda equina, no bowel or bladder incontinence or retention. VITAL SIGNS are WNL, patient is afebrile Ordered pain medication, imaging, labs. ER COURSE: Pain medication provided. CBC and CMP unremarkable CT shows no acute findings, no stenosis, degenerative changes. UA positive for WBC, leukocyte esterase, probable UTI. Dr. Smith ordered abx. Consult with Dr. Smith. Due to patient unable to walk, intractable pain symptoms, concerns for mobility outside hospital. Patient will be admitted to Dr. Cochran. Labs Test 02/05/18 19:20 White Blood Count 7.3 K/UL (4.8-10.8) Red Blood Count 4.43 M/UL (4.20-5.40) Hemoglobin 12.6 G/DL (12.0-16.0) Hematocrit 40.0 % (37.0-47.0) Mean Corpuscular Volume 90 FL (80-99) Mean Corpuscular Hemoglobin 28.5 PG (27.0-31.0) Mean Corpuscular Hemoglobin Concent 31.6 G/DL (32.0-36.0) Red Cell Distribution Width 14.0 % (11.6-14.8) Platelet Count 153 K/UL (150-450) Mean Platelet Volume 9.2 FL (6.5-10.1) Neutrophils (%) (Auto) 59.6 % (45.0-75.0) Lymphocytes (%) (Auto) 31.5 % (20.0-45.0) Monocytes (%) (Auto) 5.3 % (1.0-10.0) Eosinophils (%) (Auto) 2.3 % (0.0-3.0) Basophils (%) (Auto) 1.3 % (0.0-2.0) Urine Color Amanda Urine Appearance Clear Urine pH 5 (4.5-8.0) Urine Specific [place] 1.025 (1.005-1.035) Urine Protein Negative (NEGATIVE) Urine Glucose (UA) Negative (NEGATIVE) Urine Ketones Negative (NEGATIVE) Urine Occult Blood Negative (NEGATIVE) Urine Nitrite Negative (NEGATIVE) Urine Bilirubin Negative (NEGATIVE) Urine Ictotest Negative Urine Urobilinogen Normal MG/DL (0.0-1.0) Urine Leukocyte Esterase 2+ (NEGATIVE) Urine RBC 0-2 /HPF (0 - 2) Urine WBC 10-15 /HPF (0 - 2) Urine Squamous Epithelial Cells Moderate /LPF (NONE/OCC) Urine Bacteria Few /HPF (NONE) Urine HCG, Qualitative Negative (NEGATIVE) Sodium Level 144 MMOL/L (136-145) Potassium Level 3.3 MMOL/L (3.5-5.1) Chloride Level 104 MMOL/L (98-107) Carbon Dioxide Level 30 MMOL/L (21-32) Anion Gap 10 mmol/L (5-15) Blood Urea Nitrogen 18 mg/dL (7-18) Creatinine 1.1 MG/DL (0.55-1.30) Estimat Glomerular Filtration Rate > 60 mL/min (>60) Glucose Level 127 MG/DL (74-106) Calcium Level 10.0 MG/DL (8.5-10.1) Total Bilirubin 0.3 MG/DL (0.2-1.0) Aspartate Amino Transf (AST/SGOT) 35 U/L (15-37) Alanine Aminotransferase (ALT/SGPT) 31 U/L (12-78) Alkaline Phosphatase 72 U/L (46-116) Total Protein 8.4 G/DL (6.4-8.2) Albumin 4.4 G/DL (3.4-5.0) Globulin 4.0 g/dL Albumin/Globulin Ratio 1.1 (1.0-2.7) (Kip Tapia P.A.) CT/MRI/US Diagnostic Results CT/MRI/US Diagnostic Results : Imaging Test Ordered: CT lumbar spine Impression FINDINGS: Vertebrae: 3 mm anterolisthesis of L4 on L5 is again noted. Discs/spinal canal/neural foramina: Mild degenerative disc disease. Suspect osteopenia. No spinal canal stenosis. Soft tissues: Unremarkable. Vasculature: Moderate amount of atherosclerotic calcifications. IMPRESSION: No acute findings or substantial change. (Kip Tapia) Last Vital Signs Date Time Temp Pulse Resp B/P (MAP) Pulse Ox O2 Delivery O2 Flow Rate FiO2 02/05/18 17:15 98.9 96 17 157/76 95 Room Air 99.0 (Kip Tapia) Disposition: ADMITTED INPATIENT Condition: Serious Kip Tapia February 05, 2018 18:24 Bam Smith DO February 05, 2018 20:38
[2018-02-05 19:30] VITALS: BP 142/76
[2018-02-05 19:43] LABS: BASOPHILS % (AUTO) 1.3 % (0.0-2.0); EOSINOPHILS % (AUTO) 2.3 % (0.0-3.0); HEMOGLOBIN 12.6 G/DL (12.0-16.0); LYMPHOCYTES % (AUTO) 31.5 % (20.0-45.0); MEAN CORPUSCULAR VOLUME 90 FL (80-99); MONOCYTES % (AUTO) 5.3 % (1.0-10.0); NEUTROPHILS % (AUTO) 59.6 % (45.0-75.0); PLATELET COUNT 153 K/UL (150-450); RED BLOOD COUNT 4.43 M/UL (4.20-5.40); WHITE BLOOD COUNT 7.3 K/UL (4.8-10.8)
[2018-02-05 19:48] LABS: ANION GAP 10 mmol/L (5-15); BLOOD UREA NITROGEN 18 mg/dL (7-18); CARBON DIOXIDE 30 MMOL/L (21-32); CHLORIDE 104 MMOL/L (98-107); CREATININE 1.1 MG/DL (0.55-1.30); POTASSIUM 3.3 MMOL/L (3.5-5.1); SODIUM 144 MMOL/L (136-145)
[2018-02-05 19:52] LABS: APPEARANCE,URINE CLEAR; BILIRUBIN, URINE NEGATIVE (NEGATIVE); COLOR,URINE AMBER; GLUCOSE, URINE (UA) NEGATIVE (NEGATIVE); KETONES,URINE NEGATIVE (NEGATIVE); LEUKOCYTE ESTERASE ,URINE 2+ (NEGATIVE); NITRITE,URINE NEGATIVE (NEGATIVE); PH,URINE 5 (4.5-8.0); PROTEIN,URINE NEGATIVE (NEGATIVE); UROBILINOGEN,URINE NORMAL MG/DL (0.0-1.0)
[2018-02-05 19:53] LABS: ALANINE AMINOTRANSFERASE 31 U/L (12-78); ALBUMIN 4.4 G/DL (3.4-5.0); ALBUMIN/GLOBULIN RATIO 1.1 (1.0-2.7); ALKALINE PHOSPHATASE 72 U/L (46-116); ASPARTATE AMINO TRANSFERASE 35 U/L (15-37); BILIRUBIN,TOTAL 0.3 MG/DL (0.2-1.0)
[2018-02-05 20:45] VITALS: BP 140/79
[2018-02-05] MEDS ORDERED: cefTRIAXone 1 GM in NS 55 ML IVPB ONE (20:45)
[2018-02-05] MEDS ORDERED: Mylanta II UD 30ml ORAL PRN (21:00)
[2018-02-05] MEDS ORDERED: Miralax 17gm pkt ORAL PRN (21:00)
[2018-02-05] MEDS: Morphine Sulfate 4mg/ml Inj IVP PRN (22:53)
[2018-02-05] MEDS: Heparin 5000 units/ml inj SUBQ SCH (23:01)
[2018-02-05] MEDS: LORazepam 1mg tab ORAL SCH (23:07)
[2018-02-06] VITALS (7 sets, daily range): BP systolic 122–164; BP diastolic 64–82
[2018-02-06] MEDS: Zolpidem 5mg tab ORAL PRN (00:45)
[2018-02-06] MEDS: Morphine Sulfate 4mg/ml Inj IVP PRN ×5 (02:59→21:29)
[2018-02-06] MEDS ORDERED: Albuterol/Ipratropium 3ml neb HHN PRN (07:45)
--- NOTE | 2018-02-06 08:00 | History and Physical ---
History of Present Illness General Date patient seen: February 06, 2018 Time patient seen: 07:00 Reason for Hospitalization: Pain Present Illness HPI 67-year-old female with PMH of HTN, COPD, OA, DDD, cervical spondylosis with radiculopathy, hepatitic C, depression, anxiety, spinal stenosis presented to ER complaining of back pain. She reported back pain radiating down her legs bilaterally. Pain was getting progressively worse. Patient usually takes [place]her for pain relief but at this time id did not help alleviate her symptoms. No history of lower back surgery, but reported hx of neck fusion Denied history of kidney stones. Denied bowel or bladder problems, such as incontinence, dysuria, hematuria. Denied fever, chest pain, shortness of breath, abdominal pain. Workup in ED was unremarkable No leukocytosis, stable renal parameters, K-3.3 stable HH UA with + pyuria, + leukocyte esterase, but few bacteria, and no urinary complaints\ CT L spine revealed no acute findings patient was unable to walk and was admitted for intractable back pain Allergies: Coded Allergies: No Known Allergies (Verified Allergy, Mild, 03/28/07) Medication History Scheduled Amlodipine Besylate* (Amlodipine Besylate*), 5 MG ORAL DAILY, (Reported) Aspirin* (Aspir 81*), 81 MG ORAL DAILY, (Reported) Bupropion Hcl* (Wellbutrin Xl*), 150 MG ORAL BID, (Reported) Escitalopram Oxalate* (Lexapro*), 10 MG ORAL DAILY Hydrochlorothiazide* (Hydrochlorothiazide*), 25 MG ORAL DAILY, (Reported) Ibuprofen* (Motrin*), 600 MG ORAL THREE TIMES A DAY Lorazepam* (Ativan*), 2 MG ORAL EVERY 12 HOURS Pantoprazole* (Protonix*), 40 MG ORAL DAILY, (Reported) Potassium Chloride (K-Tab ER), Unknown Dose PO DAILY, (Reported) Rosuvastatin Calcium* (Crestor*), MG ORAL QHS, (Reported) Sertraline Hcl* (Zoloft*), 200 MG ORAL DAILY, (Reported) Scheduled PRN Hydrocodone/Acetaminophen (Hydrocodon-Acetaminophn 10-325), 1 TAB ORAL Q4H PRN for For Pain, (Reported) Patient History Healthcare decision maker Resuscitation status Full Code Advanced Directive on File No Past Medical/Surgical History Past Medical/Surgical History: (1) DDD (degenerative disc disease) (2) COPD (chronic obstructive pulmonary disease) (3) Osteoarthritis (4) Anxiety (5) Chronic pain (6) Degenerative disc disease, cervical (7) copd (8) Costochondritis (9) HTN (hypertension) (10) Hypercholesteremia (11) Stenosis, spinal, lumbar (12) Depression (13) GERD (gastroesophageal reflux disease) Review of Systems Constitutional: Reports: weakness Eye: Reports: no symptoms, other - wears glasses ENT: Reports: no symptoms Respiratory: Reports: no symptoms, other - COPD, smoker Cardiovascular: Reports: no symptoms, other - Hx of HTN Gastrointestinal: Reports: no symptoms Genitourinary: Reports: no symptoms Psychiatric: Reports: anxiety, depressed feelings Neurological: Reports: no symptoms Endocrine: Reports: no symptoms Hematologic/Lymphatic: Reports: no symptoms Physical Exam General Appearance: no apparent distress, alert Lines, tubes and drains: peripheral HEENT: normocephalic, atraumatic, anicteric, PERRL Neck: non-tender, supple Respiratory/Chest: chest wall non-tender, lungs clear, normal breath sounds, no respiratory distress, no accessory muscle use Cardiovascular/Chest: normal rate Abdomen: normal bowel sounds, non tender, soft Extremities: no calf tenderness, normal capillary refill, no edema Skin Exam: normal pigmentation, warm/dry Neurologic: abnormal gait - ambulates with walker , alert, oriented x 3, responsive, other - decreased ROM LE due to pain, Musculoskeletal: atrophy - BLE Last 24 Hour Vital Signs Date Time Temp Pulse Resp B/P (MAP) Pulse Ox O2 Delivery O2 Flow Rate FiO2 02/06/18 04:00 97.6 64 20 141/77 96 97.6 02/06/18 00:00 97.7 74 20 122/76 97 97.7 02/05/18 21:24 98.5 70 16 140/79 95 Room Air 98.5 72 02/05/18 20:45 98.5 72 16 140/79 95 Room Air 98.5 02/05/18 20:00 98.9 02/05/18 20:00 98.9 02/05/18 19:31 98.9 02/05/18 19:30 98.0 70 17 142/76 94 Room Air 98.0 02/05/18 19:30 98.9 02/05/18 17:45 99.0 17 157/76 95 Room Air 99.0 02/05/18 17:15 98.9 96 17 157/76 95 Room Air 99.0 Intake and Output 02/05/18 02/06/18 19:00 07:00 Intake Total 0 ml 555 ml Output Total 200 ml Balance 0 ml 355 ml Intake Oral 0 ml 500 ml IV Total 55 ml Output Emesis 200 ml # Voids 2 Laboratory Tests Test 02/05/18 19:20 White Blood Count 7.3 K/UL (4.8-10.8) Red Blood Count 4.43 M/UL (4.20-5.40) Hemoglobin 12.6 G/DL (12.0-16.0) Hematocrit 40.0 % (37.0-47.0) Mean Corpuscular Volume 90 FL (80-99) Mean Corpuscular Hemoglobin 28.5 PG (27.0-31.0) Mean Corpuscular Hemoglobin Concent 31.6 G/DL (32.0-36.0) L Red Cell Distribution Width 14.0 % (11.6-14.8) Platelet Count 153 K/UL (150-450) Mean Platelet Volume 9.2 FL (6.5-10.1) Neutrophils (%) (Auto) 59.6 % (45.0-75.0) Lymphocytes (%) (Auto) 31.5 % (20.0-45.0) Monocytes (%) (Auto) 5.3 % (1.0-10.0) Eosinophils (%) (Auto) 2.3 % (0.0-3.0) Basophils (%) (Auto) 1.3 % (0.0-2.0) Urine Color Amanda Urine Appearance Clear Urine pH 5 (4.5-8.0) Urine Specific [place] 1.025 (1.005-1.035) Urine Protein Negative (NEGATIVE) Urine Glucose (UA) Negative (NEGATIVE) Urine Ketones Negative (NEGATIVE) Urine Occult Blood Negative (NEGATIVE) Urine Nitrite Negative (NEGATIVE) Urine Bilirubin Negative (NEGATIVE) Urine Ictotest Negative Urine Urobilinogen Normal MG/DL (0.0-1.0) Urine Leukocyte Esterase 2+ (NEGATIVE) H Urine RBC 0-2 /HPF (0 - 2) Urine WBC 10-15 /HPF (0 - 2) H Urine Squamous Epithelial Cells Moderate /LPF (NONE/OCC) H Urine Bacteria Few /HPF (NONE) Urine HCG, Qualitative Negative (NEGATIVE) Sodium Level 144 MMOL/L (136-145) Potassium Level 3.3 MMOL/L (3.5-5.1) L Chloride Level 104 MMOL/L (98-107) Carbon Dioxide Level 30 MMOL/L (21-32) Anion Gap 10 mmol/L (5-15) Blood Urea Nitrogen 18 mg/dL (7-18) Creatinine 1.1 MG/DL (0.55-1.30) Estimat Glomerular Filtration Rate > 60 mL/min (>60) Glucose Level 127 MG/DL (74-106) H Calcium Level 10.0 MG/DL (8.5-10.1) Total Bilirubin 0.3 MG/DL (0.2-1.0) Aspartate Amino Transf (AST/SGOT) 35 U/L (15-37) Alanine Aminotransferase (ALT/SGPT) 31 U/L (12-78) Alkaline Phosphatase 72 U/L (46-116) Total Protein 8.4 G/DL (6.4-8.2) H Albumin 4.4 G/DL (3.4-5.0) Globulin 4.0 g/dL Albumin/Globulin Ratio 1.1 (1.0-2.7) Height (Feet): 5 Height (Inches): 5.00 Weight (Pounds): 192 Medications Current Medications Medications (Trade) Dose Ordered Sig/Star Route PRN Reason Start Time Stop Time Status Last Admin Dose Admin Acetaminophen (Tylenol) 650 mg Q4H PRN ORAL fever 02/05/18 21:00 03/07/18 20:59 Al Hydroxide/Mg Hydroxide (Mylanta II) 30 ml Q6H PRN ORAL dyspepsia 02/05/18 21:00 03/07/18 20:59 Amlodipine Besylate (Norvasc) 5 mg DAILY ORAL 02/06/18 09:00 03/08/18 08:59 Aspirin (Ecotrin) 81 mg DAILY ORAL 02/06/18 09:00 03/08/18 08:59 Bupropion HCl (Wellbutrin XL) 150 mg BID ORAL 02/06/18 09:00 03/08/18 08:59 Dextrose (Dextrose 50%) STAT PRN IV Hypoglycemia 02/05/18 21:00 03/07/18 20:59 Escitalopram Oxalate (Lexapro) 10 mg DAILY ORAL 02/06/18 09:00 03/08/18 08:59 Heparin Sodium (Porcine) (Heparin 5000 units/ml) 5,000 units EVERY 12 HOURS SUBQ 02/05/18 21:00 03/07/18 20:59 02/05/18 23:01 Ibuprofen (Advil) 600 mg THREE TIMES A DAY ORAL 02/06/18 09:00 03/08/18 08:59 Lorazepam (Ativan 2mg/ml 1ml) 0.5 mg Q4H PRN IV For Anxiety 02/05/18 21:00 02/12/18 20:59 Lorazepam (Ativan) 2 mg EVERY 12 HOURS ORAL 02/05/18 21:00 02/12/18 20:59 02/05/18 23:07 Morphine Sulfate (Morphine Sulfate) 4 mg Q4H PRN IVP For Pain 7-10 02/05/18 21:00 02/12/18 20:59 02/06/18 07:29 Ondansetron HCl (Zofran) 4 mg Q6H PRN IVP Nausea & Vomiting 02/05/18 21:00 03/07/18 20:59 Pantoprazole (Protonix) 40 mg DAILY ORAL 02/06/18 09:00 03/08/18 08:59 Polyethylene Glycol (Miralax) 17 gm HSPRN PRN ORAL Constipation 02/05/18 21:00 03/07/18 20:59 Zolpidem Tartrate (Ambien) 5 mg HSPRN PRN ORAL Insomnia 02/05/18 21:00 02/12/18 20:59 02/06/18 00:45 Assessment/Plan Assessment/Plan ASSESSMENT Intractable back pain Spinal stenosis Hypokalemia Possible UTI DDD L-spine Hypertension COPD Hep C Depression and anxiety PLAN OFF CARE medical surgical floor pain management pain specialist consult PT/OT. mobilize patient fall precautions hold off antibiotic for now, but obtain the urine culture ( patient asymptomatic, no urinary complaints, no fever, no leukocytosis) K replaced ; monitor electrolytes, renal parameters and correct as needed blood pressure management with calcium channel colette bowel regimen DVT /GI prophylaxis home medication for depression, anxiety resumed supplemental oxygen as needed to keep pulse oximetry above 92% pulmonary toilet as needed no evidence of COPD exacerbation control pain, mobilize and discharge home with outpatient pain specialist to follow case discussed and evaluated by supervising physician Akin ([facility])Danyell NP February 06, 2018 08:00
[2018-02-06] MEDS: LORazepam 1mg tab ORAL SCH ×2 (09:11→21:10)
[2018-02-06] MEDS: Aspirin EC 81mg tab ORAL SCH (09:11)
[2018-02-06] MEDS: Heparin 5000 units/ml inj SUBQ SCH ×2 (09:13→21:13)
[2018-02-06] MEDS: BuPROPion XL 150mg tab ORAL SCH ×2 (09:32→17:21)
--- NOTE | 2018-02-06 10:52 | General Progress Note ---
Assessment/Plan Assessment/Plan (1) Degenerative disc disease, cervical (2) Cervical spondylosis (3) Cervical herniated disc (4) Cervical radiculopathy (5) History of fusion of cervical spine We will continue Morphine and start Dilaudid 4mg PO 1tab Q4H PRN. D/w Dr. Tucker and he concurred. Thank you for the courtesy of this consultation Subjective Date patient seen: February 06, 2018 Time patient seen: 09:30 - am Allergies: Coded Allergies: No Known Allergies (Verified Allergy, Mild, 03/28/07) Subjective Constitutional: Denies: chills, diaphoresis, fever, malaise, no symptoms, other , weakness HEENT: Denies: blurred vision, double vision, ear discharge, ear pain, eye pain , mouth pain, mouth swelling, no symptoms, nose congestion, nose pain, other, tearing, throat pain, throat swelling Cardiovascular: Denies: chest pain, edema, irregular heart rate, lightheadedness, no symptoms, other, palpitations, syncope Respiratory: Denies: SOB at rest, SOB with excertion, cough, no symptoms, orthopnea, other, shortness of breath, sputum, stridor, wheezing Gastrointestinal/Abdominal: Denies: abdomen distended, abdominal pain, black stools, blood in stool, constipated, diarrhea, difficulty swallowing, nausea, no symptoms, other, poor appetite, poor fluid intake, rectal bleeding, tarry stools, vomiting Genitourinary: Denies: burning, discharge, flank pain, frequency, hematuria, incontinence, no symptoms, other, pain, urgency Neurologic/Psychiatric: Denies: anxiety, depressed, emotional problems, headache, no symptoms, numbness, other, paresthesia, pre-existing deficit, seizure, tingling, tremors, weakness Endocrine: Denies: excessive sweating, flushing, increased hunger, increased thirst, increased urine, intolerance to cold, intolerance to heat, no symptoms, other, unexplained weight gain, unexplained weight loss Hematologic/Lymphatic: Denies: anemia, easy bleeding, easy bruising, no symptoms, other Subjective Pt is a known patient from prior admission now returns due to Low back pain. She is on Morphine 4mg IV Q4H PRN with minimal relief. Due to this were consulted to see patient. CT scan of Lumbar spine done results pending. Objective Last 24 Hour Vital Signs Date Time Temp Pulse Resp B/P (MAP) Pulse Ox O2 Delivery O2 Flow Rate FiO2 02/06/18 09:11 75 130/78 02/06/18 08:00 98.2 75 20 130/78 98 98.2 02/06/18 04:00 97.6 64 20 141/77 96 97.6 02/06/18 00:00 97.7 74 20 122/76 97 97.7 02/05/18 21:24 98.5 70 16 140/79 95 Room Air 98.5 72 02/05/18 20:45 98.5 72 16 140/79 95 Room Air 98.5 02/05/18 20:00 98.9 02/05/18 20:00 98.9 02/05/18 19:31 98.9 02/05/18 19:30 98.0 70 17 142/76 94 Room Air 98.0 02/05/18 19:30 98.9 02/05/18 17:45 99.0 17 157/76 95 Room Air 99.0 02/05/18 17:15 98.9 96 17 157/76 95 Room Air 99.0 Intake and Output 02/05/18 02/06/18 19:00 07:00 Intake Total 0 ml 555 ml Output Total 200 ml Balance 0 ml 355 ml Intake Oral 0 ml 500 ml IV Total 55 ml Output Emesis 200 ml # Voids 2 Laboratory Tests 02/05/18 19:20: White Blood Count 7.3, Red Blood Count 4.43, Hemoglobin 12.6, Hematocrit 40.0, Mean Corpuscular Volume 90, Mean Corpuscular Hemoglobin 28.5, Mean Corpuscular Hemoglobin Concent 31.6L, Red Cell Distribution Width 14.0, Platelet Count 153, Mean Platelet Volume 9.2, Neutrophils (%) (Auto) 59.6, Lymphocytes (%) (Auto) 31.5, Monocytes (%) (Auto) 5.3, Eosinophils (%) (Auto) 2.3, Basophils (%) (Auto ) 1.3, Urine Color Amanda, Urine Appearance Clear, Urine pH 5, Urine Specific [place] 1.025, Urine Protein Negative, Urine Glucose (UA) Negative, Urine Ketones Negative, Urine Occult Blood Negative, Urine Nitrite Negative, Urine Bilirubin Negative, Urine Ictotest Negative, Urine Urobilinogen Normal, Urine Leukocyte Esterase 2+H, Urine RBC 0-2, Urine WBC 10-15H, Urine Squamous Epithelial Cells ModerateH, Urine Bacteria Few, Urine HCG, Qualitative Negative , Sodium Level 144, Potassium Level 3.3L, Chloride Level 104, Carbon Dioxide Level 30, Anion Gap 10, Blood Urea Nitrogen 18, Creatinine 1.1, Estimat Glomerular Filtration Rate > 60, Glucose Level 127H, Calcium Level 10.0, Total Bilirubin 0.3, Aspartate Amino Transf (AST/SGOT) 35, Alanine Aminotransferase ( ALT/SGPT) 31, Alkaline Phosphatase 72, Total Protein 8.4H, Albumin 4.4, Globulin 4.0, Albumin/Globulin Ratio 1.1 02/06/18 06:40: Sodium Level [Pending], Potassium Level [Pending], Chloride Level [Pending], Carbon Dioxide Level [Pending], Blood Urea Nitrogen [Pending], Creatinine [ Pending], Estimat Glomerular Filtration Rate [Pending], Glucose Level [Pending] , Calcium Level [Pending], Total Bilirubin [Pending], Aspartate Amino Transf ( AST/SGOT) [Pending], Alanine Aminotransferase (ALT/SGPT) [Pending], Alkaline Phosphatase [Pending], Total Protein [Pending], Albumin [Pending], Globulin [ Pending], Thyroid Stimulating Hormone (TSH) [Pending] Height (Feet): 5 Height (Inches): 5.00 Weight (Pounds): 192 Objective General Appearance: no apparent distress, alert EENT: normal ENT inspection Neck: normal alignment, supple Cardiovascular: normal rate, regular rhythm Respiratory/Chest: lungs clear, normal breath sounds Abdomen: non tender, soft Edema: no edema noted Arm (L), no edema noted Arm (R), no edema noted Leg (L), no edema noted Leg (R), no edema noted Pedal (L), no edema noted Pedal (R), no edema noted Generalized Neurologic: alert, oriented x 3 Skin: normal pigmentation LISBET KEANE February 06, 2018 10:52
[2018-02-06 11:17] LABS: ALANINE AMINOTRANSFERASE 19 U/L (12-78); ALBUMIN 3.5 G/DL (3.4-5.0); ALBUMIN/GLOBULIN RATIO 1.1 (1.0-2.7); ALKALINE PHOSPHATASE 62 U/L (46-116); ANION GAP 11 mmol/L (5-15); ASPARTATE AMINO TRANSFERASE 21 U/L (15-37); BILIRUBIN,TOTAL 0.2 MG/DL (0.2-1.0); BLOOD UREA NITROGEN 20 mg/dL (7-18); CALCIUM 9.5 MG/DL (8.5-10.1); CARBON DIOXIDE 27 MMOL/L (21-32); CHLORIDE 106 MMOL/L (98-107); POTASSIUM 3.9 MMOL/L (3.5-5.1); SODIUM 144 MMOL/L (136-145)
[2018-02-06] MEDS: HYDROmorphone 4mg tab ORAL PRN (11:31)
[2018-02-06 11:37] LABS: BASOPHILS % (AUTO) 0.9 % (0.0-2.0); EOSINOPHILS % (AUTO) 3.1 % (0.0-3.0); HEMOGLOBIN 12.1 G/DL (12.0-16.0); LYMPHOCYTES % (AUTO) 48.2 % (20.0-45.0); MEAN CORPUSCULAR VOLUME 91 FL (80-99); NEUTROPHILS % (AUTO) 41.7 % (45.0-75.0); PLATELET COUNT 152 K/UL (150-450); RED BLOOD COUNT 4.17 M/UL (4.20-5.40); RED CELL DISTRIBUTION WIDTH 13.6 % (11.6-14.8); WHITE BLOOD COUNT 5.9 K/UL (4.8-10.8)
[2018-02-06] MEDS: LORazepam Inj 2mg/ml 1ml IV PRN (15:05)
[2018-02-07] VITALS: BP 128/83
[2018-02-07] MEDS: Zolpidem 5mg tab ORAL PRN ×2 (00:12→01:26)
[2018-02-07] MEDS: Morphine Sulfate 4mg/ml Inj IVP PRN ×2 (01:28→05:42)
[2018-02-07] MEDS: HYDROmorphone 4mg tab ORAL PRN ×3 (02:56→15:54)
[2018-02-07 04:00] VITALS: BP 133/70
[2018-02-07] MEDS: LORazepam Inj 2mg/ml 1ml IV PRN (05:10)
[2018-02-07 08:00] VITALS: BP 143/74
[2018-02-07 08:25] LABS: BASOPHILS % (AUTO) 1.1 % (0.0-2.0); EOSINOPHILS % (AUTO) 3.7 % (0.0-3.0); HEMATOCRIT 36.2 % (37.0-47.0); HEMOGLOBIN 11.5 G/DL (12.0-16.0); LYMPHOCYTES % (AUTO) 37.4 % (20.0-45.0); MEAN CORPUSCULAR VOLUME 91 FL (80-99); MONOCYTES % (AUTO) 7.1 % (1.0-10.0); NEUTROPHILS % (AUTO) 50.6 % (45.0-75.0); PLATELET COUNT 157 K/UL (150-450); RED BLOOD COUNT 3.96 M/UL (4.20-5.40); WHITE BLOOD COUNT 6.7 K/UL (4.8-10.8)
[2018-02-07 08:32] LABS: ANION GAP 6 mmol/L (5-15); BLOOD UREA NITROGEN 20 mg/dL (7-18); CALCIUM 9.1 MG/DL (8.5-10.1); CARBON DIOXIDE 32 MMOL/L (21-32); CHLORIDE 106 MMOL/L (98-107); POTASSIUM 4.1 MMOL/L (3.5-5.1); SODIUM 144 MMOL/L (136-145)
[2018-02-07] MEDS: Aspirin EC 81mg tab ORAL SCH (08:34)
[2018-02-07] MEDS: LORazepam 1mg tab ORAL SCH (08:34)
[2018-02-07] MEDS: BuPROPion XL 150mg tab ORAL SCH (08:34)
[2018-02-07] MEDS: Heparin 5000 units/ml inj SUBQ SCH (08:35)
--- NOTE | 2018-02-07 08:56 | General Progress Note ---
Assessment/Plan Assessment/Plan (1) Degenerative disc disease, cervical (2) Cervical spondylosis (3) Cervical herniated disc (4) Cervical radiculopathy (5) History of fusion of cervical spine We will continue Morphine and start Dilaudid. D/w Dr. Tucker and he concurred. Subjective Date patient seen: February 07, 2018 Time patient seen: 07:30 - am Allergies: Coded Allergies: No Known Allergies (Verified Allergy, Mild, 03/28/07) Subjective Constitutional: Denies: chills, diaphoresis, fever, malaise, no symptoms, other , weakness HEENT: Denies: blurred vision, double vision, ear discharge, ear pain, eye pain , mouth pain, mouth swelling, no symptoms, nose congestion, nose pain, other, tearing, throat pain, throat swelling Cardiovascular: Denies: chest pain, edema, irregular heart rate, lightheadedness, no symptoms, other, palpitations, syncope Respiratory: Denies: SOB at rest, SOB with excertion, cough, no symptoms, orthopnea, other, shortness of breath, sputum, stridor, wheezing Gastrointestinal/Abdominal: Denies: abdomen distended, abdominal pain, black stools, blood in stool, constipated, diarrhea, difficulty swallowing, nausea, no symptoms, other, poor appetite, poor fluid intake, rectal bleeding, tarry stools, vomiting Genitourinary: Denies: burning, discharge, flank pain, frequency, hematuria, incontinence, no symptoms, other, pain, urgency Neurologic/Psychiatric: Denies: anxiety, depressed, emotional problems, headache, no symptoms, numbness, other, paresthesia, pre-existing deficit, seizure, tingling, tremors, weakness Endocrine: Denies: excessive sweating, flushing, increased hunger, increased thirst, increased urine, intolerance to cold, intolerance to heat, no symptoms, other, unexplained weight gain, unexplained weight loss Hematologic/Lymphatic: Denies: anemia, easy bleeding, easy bruising, no symptoms, other Subjective The pain has been stable on the medication. She has no new complaints. Objective Last 24 Hour Vital Signs Date Time Temp Pulse Resp B/P (MAP) Pulse Ox O2 Delivery O2 Flow Rate FiO2 02/07/18 08:34 84 143/74 02/07/18 08:00 97.6 84 19 143/74 98 Room Air 97.6 02/07/18 04:00 97.9 71 19 133/70 95 97.9 02/07/18 04:00 Room Air 02/07/18 00:00 97.9 78 20 128/83 95 97.9 02/07/18 00:00 Room Air 02/06/18 20:00 98.2 77 19 133/64 99 98.2 02/06/18 19:30 77 16 Room Air 21 02/06/18 17:21 97.7 02/06/18 16:00 97.7 76 17 128/80 96 97.7 02/06/18 13:01 66 20 148/67 96 Room Air 02/06/18 12:00 97.6 70 20 164/82 98 Room Air 97.6 02/06/18 09:11 75 130/78 Intake and Output 02/06/18 02/07/18 19:00 07:00 Intake Total 600 ml Balance 600 ml Intake Oral 600 ml # Voids 3 4 # Bowel Movements 1 Laboratory Tests 02/06/18 11:15: White Blood Count 5.9, Red Blood Count 4.17L, Hemoglobin 12.1, Hematocrit 38.0, Mean Corpuscular Volume 91, Mean Corpuscular Hemoglobin 29.0, Mean Corpuscular Hemoglobin Concent 31.8L, Red Cell Distribution Width 13.6, Platelet Count 152, Mean Platelet Volume 9.6, Neutrophils (%) (Auto) 41.7L, Lymphocytes (%) (Auto) 48.2H, Monocytes (%) (Auto) 6.0, Eosinophils (%) (Auto) 3.1H, Basophils (%) ( Auto) 0.9 02/07/18 07:10: White Blood Count 6.7, Red Blood Count 3.96L, Hemoglobin 11.5L, Hematocrit 36.2L , Mean Corpuscular Volume 91, Mean Corpuscular Hemoglobin 28.9, Mean Corpuscular Hemoglobin Concent 31.7L, Red Cell Distribution Width 14.0, Platelet Count 157, Mean Platelet Volume 8.9, Neutrophils (%) (Auto) 50.6, Lymphocytes (%) (Auto) 37.4, Monocytes (%) (Auto) 7.1, Eosinophils (%) (Auto) 3.7H, Basophils (%) (Auto) 1.1, Sodium Level 144, Potassium Level 4.1, Chloride Level 106, Carbon Dioxide Level 32, Anion Gap 6, Blood Urea Nitrogen 20H, Creatinine 1.0, Estimat Glomerular Filtration Rate > 60, Glucose Level 95, Calcium Level 9.1 Height (Feet): 5 Height (Inches): 5.00 Weight (Pounds): 192 Objective General Appearance: no apparent distress, alert EENT: normal ENT inspection Neck: normal alignment, supple Cardiovascular: normal rate, regular rhythm Respiratory/Chest: lungs clear, normal breath sounds Abdomen: non tender, soft Edema: no edema noted Arm (L), no edema noted Arm (R), no edema noted Leg (L), no edema noted Leg (R), no edema noted Pedal (L), no edema noted Pedal (R), no edema noted Generalized Neurologic: alert, oriented x 3 Skin: normal pigmentation LISBET KEANE February 07, 2018 08:56
--- NOTE | 2018-02-07 10:42 | Diagnostic Imaging Report ---
Indication: Dyspnea Comparison: 06/19/2017 A single view chest radiograph was obtained. Findings: Cardiomediastinal appearance is within normal limits for age. Pulmonary vascularity is appropriate. The diaphragmatic contour is smooth and costophrenic angles are sharp. No pleural effusions are identified. The bones are osteopenic. Impression: No acute findings
--- NOTE | 2018-02-07 10:59 | Consultation ---
History of Present Illness General Date patient seen: February 06, 2018 Chief Complaint: Pain Present Illness HPI 67-year-old female with PMH of HTN, COPD, OA, DDD, cervical spondylosis with radiculopathy, hepatitic C, depression, anxiety, spinal stenosis presented to ER complaining of back pain. She reported back pain radiating down her legs bilaterally. Allergies: Coded Allergies: No Known Allergies (Verified Allergy, Mild, 03/28/07) Medication History Scheduled Amlodipine Besylate* (Amlodipine Besylate*), 5 MG ORAL DAILY, (Reported) Aspirin* (Aspir 81*), 81 MG ORAL DAILY, (Reported) Bupropion Hcl* (Wellbutrin Xl*), 150 MG ORAL BID, (Reported) Escitalopram Oxalate* (Lexapro*), 10 MG ORAL DAILY Hydrochlorothiazide* (Hydrochlorothiazide*), 25 MG ORAL DAILY, (Reported) Ibuprofen* (Motrin*), 600 MG ORAL THREE TIMES A DAY Lorazepam* (Ativan*), 2 MG ORAL EVERY 12 HOURS Pantoprazole* (Protonix*), 40 MG ORAL DAILY, (Reported) Potassium Chloride (K-Tab ER), Unknown Dose PO DAILY, (Reported) Rosuvastatin Calcium* (Crestor*), MG ORAL QHS, (Reported) Sertraline Hcl* (Zoloft*), 200 MG ORAL DAILY, (Reported) Scheduled PRN Hydrocodone/Acetaminophen (Hydrocodon-Acetaminophn 10-325), 1 TAB ORAL Q4H PRN for For Pain, (Reported) Patient History History Provided By: Patient, Medical Record, PMD Healthcare decision maker Resuscitation status Full Code Advanced Directive on File No Past Medical/Surgical History Past Medical/Surgical History: (1) Cervical spondylosis (2) Odynophagia (3) Anemia (4) Dysphagia (5) Knee pain, left (6) Cervical herniated disc (7) ACS (acute coronary syndrome) (8) Sepsis (9) Bronchitis (10) Chest pain (11) COPD exacerbation (12) UTI (urinary tract infection) (13) COPD (chronic obstructive pulmonary disease) (14) Anxiety (15) Depression (16) Hypercholesteremia (17) Osteoarthritis (18) Costochondritis (19) Stenosis, spinal, lumbar (20) DDD (degenerative disc disease) (21) GERD (gastroesophageal reflux disease) (22) HTN (hypertension) (23) Chronic pain (24) Degenerative disc disease, cervical (25) copd (26) Cervical radiculopathy Review of Systems Psychiatric: Reports: prior hx, anxiety, depressed feelings, emotional problems Physical Exam General Appearance: no apparent distress, alert Neurologic: oriented x 3, responsive, depressed affect Last 24 Hour Vital Signs Date Time Temp Pulse Resp B/P (MAP) Pulse Ox O2 Delivery O2 Flow Rate FiO2 02/07/18 10:52 68 02/07/18 09:02 78 16 Room Air 21 02/07/18 08:34 84 143/74 02/07/18 08:00 97.6 84 19 143/74 98 Room Air 97.6 02/07/18 04:00 97.9 71 19 133/70 95 97.9 02/07/18 04:00 Room Air 02/07/18 00:00 97.9 78 20 128/83 95 97.9 02/07/18 00:00 Room Air 02/06/18 20:00 98.2 77 19 133/64 99 98.2 02/06/18 19:30 77 16 Room Air 21 02/06/18 17:21 97.7 02/06/18 16:00 97.7 76 17 128/80 96 97.7 02/06/18 13:01 66 20 148/67 96 Room Air 02/06/18 12:00 97.6 70 20 164/82 98 Room Air 97.6 Intake and Output 02/06/18 02/07/18 19:00 07:00 Intake Total 600 ml Balance 600 ml Intake Oral 600 ml # Voids 3 4 # Bowel Movements 1 Laboratory Tests Test 02/06/18 11:15 02/07/18 07:10 White Blood Count 5.9 K/UL (4.8-10.8) 6.7 K/UL (4.8-10.8) Red Blood Count 4.17 M/UL (4.20-5.40) L 3.96 M/UL (4.20-5.40) L Hemoglobin 12.1 G/DL (12.0-16.0) 11.5 G/DL (12.0-16.0) L Hematocrit 38.0 % (37.0-47.0) 36.2 % (37.0-47.0) L Mean Corpuscular Volume 91 FL (80-99) 91 FL (80-99) Mean Corpuscular Hemoglobin 29.0 PG (27.0-31.0) 28.9 PG (27.0-31.0) Mean Corpuscular Hemoglobin Concent 31.8 G/DL (32.0-36.0) L 31.7 G/DL (32.0-36.0) L Red Cell Distribution Width 13.6 % (11.6-14.8) 14.0 % (11.6-14.8) Platelet Count 152 K/UL (150-450) 157 K/UL (150-450) Mean Platelet Volume 9.6 FL (6.5-10.1) 8.9 FL (6.5-10.1) Neutrophils (%) (Auto) 41.7 % (45.0-75.0) L 50.6 % (45.0-75.0) Lymphocytes (%) (Auto) 48.2 % (20.0-45.0) H 37.4 % (20.0-45.0) Monocytes (%) (Auto) 6.0 % (1.0-10.0) 7.1 % (1.0-10.0) Eosinophils (%) (Auto) 3.1 % (0.0-3.0) H 3.7 % (0.0-3.0) H Basophils (%) (Auto) 0.9 % (0.0-2.0) 1.1 % (0.0-2.0) Sodium Level 144 MMOL/L (136-145) Potassium Level 4.1 MMOL/L (3.5-5.1) Chloride Level 106 MMOL/L (98-107) Carbon Dioxide Level 32 MMOL/L (21-32) Anion Gap 6 mmol/L (5-15) Blood Urea Nitrogen 20 mg/dL (7-18) H Creatinine 1.0 MG/DL (0.55-1.30) Estimat Glomerular Filtration Rate > 60 mL/min (>60) Glucose Level 95 MG/DL (74-106) Calcium Level 9.1 MG/DL (8.5-10.1) Height (Feet): 5 Height (Inches): 5.00 Weight (Pounds): 192 Medications Current Medications Medications (Trade) Dose Ordered Sig/Star Route PRN Reason Start Time Stop Time Status Last Admin Dose Admin Acetaminophen (Tylenol) 650 mg Q4H PRN ORAL fever 02/05/18 21:00 03/07/18 20:59 Al Hydroxide/Mg Hydroxide (Mylanta II) 30 ml Q6H PRN ORAL dyspepsia 02/05/18 21:00 03/07/18 20:59 Albuterol/ Ipratropium (Albuterol/ Ipratropium) 3 ml Q4H PRN HHN Shortness of Breath 02/06/18 07:45 02/11/18 07:44 Amlodipine Besylate (Norvasc) 5 mg DAILY ORAL 02/06/18 09:00 03/08/18 08:59 02/07/18 08:34 Aspirin (Ecotrin) 81 mg DAILY ORAL 02/06/18 09:00 03/08/18 08:59 02/07/18 08:34 Bupropion HCl (Wellbutrin XL) 150 mg BID ORAL 02/06/18 09:00 03/08/18 08:59 02/07/18 08:34 Dextrose (Dextrose 50%) STAT PRN IV Hypoglycemia 02/05/18 21:00 03/07/18 20:59 Escitalopram Oxalate (Lexapro) 10 mg DAILY ORAL 02/06/18 09:00 03/08/18 08:59 02/07/18 08:33 Heparin Sodium (Porcine) (Heparin 5000 units/ml) 5,000 units EVERY 12 HOURS SUBQ 02/05/18 21:00 03/07/18 20:59 02/06/18 21:13 Hydromorphone HCl (Dilaudid) 4 mg Q4H PRN ORAL severe pain 02/06/18 11:00 02/13/18 10:59 02/07/18 08:34 Ibuprofen (Advil) 600 mg THREE TIMES A DAY ORAL 02/06/18 09:00 03/08/18 08:59 02/06/18 09:12 Lorazepam (Ativan 2mg/ml 1ml) 0.5 mg Q4H PRN IV For Anxiety 02/05/18 21:00 02/12/18 20:59 02/07/18 05:10 Lorazepam (Ativan) 2 mg EVERY 12 HOURS ORAL 02/05/18 21:00 02/12/18 20:59 5/7/18 08:34 Morphine Sulfate (Morphine Sulfate) 4 mg Q4H PRN IVP Moderate Breakthru Pain (5-7) 02/07/18 11:00 02/12/18 10:59 Ondansetron HCl (Zofran) 4 mg Q6H PRN IVP Nausea & Vomiting 02/05/18 21:00 03/07/18 20:59 Pantoprazole (Protonix) 40 mg DAILY ORAL 02/06/18 09:00 03/08/18 08:59 02/07/18 08:34 Polyethylene Glycol (Miralax) 17 gm HSPRN PRN ORAL Constipation 02/05/18 21:00 03/07/18 20:59 02/07/18 02:56 Zolpidem Tartrate (Ambien) 5 mg HSPRN PRN ORAL Insomnia 02/05/18 21:00 02/12/18 20:59 02/07/18 01:26 Assessment/Plan Status: stable, progressing Assessment/Plan MDD anxiety d/o cont lexapro rec to taper down zoloft the pt is reluctant to med changes wants more pain louiss Sindy Francois M.D. February 07, 2018 10:59
[2018-02-07] MEDS ORDERED: Morphine Sulfate 4mg/ml Inj IVP PRN ×2 (11:00→17:00)
[2018-02-07 12:00] VITALS: BP 114/63
--- NOTE | 2018-02-07 15:22 | Pulmonology Progress Note ---
Assessment/Plan Problems: (1) Cervical radiculopathy (2) Back pain (3) COPD (chronic obstructive pulmonary disease) (4) Anxiety (5) Depression (6) History of fusion of cervical spine Assessment/Plan symptomatic treatment pain management pt/ot seen by psychiatrist dvt prophylaxis. dc [facility] to a [facility] term rehab. Subjective ROS Limited/Unobtainable: No Constitutional: Reports: no symptoms HEENT: Repors: no symptoms Respiratory: Reports: no symptoms Allergies: Coded Allergies: No Known Allergies (Verified Allergy, Mild, 03/28/07) Objective Last 24 Hour Vital Signs Date Time Temp Pulse Resp B/P (MAP) Pulse Ox O2 Delivery O2 Flow Rate FiO2 02/07/18 12:00 98.0 71 19 114/63 96 Room Air 98.0 02/07/18 09:02 78 16 Room Air 21 02/07/18 08:34 84 143/74 02/07/18 08:00 97.6 84 19 143/74 98 Room Air 97.6 02/07/18 04:00 97.9 71 19 133/70 95 97.9 02/07/18 04:00 Room Air 02/07/18 00:00 97.9 78 20 128/83 95 97.9 02/07/18 00:00 Room Air 02/06/18 20:00 98.2 77 19 133/64 99 98.2 02/06/18 19:30 77 16 Room Air 21 02/06/18 17:21 97.7 02/06/18 16:00 97.7 76 17 128/80 96 97.7 Intake and Output 02/06/18 02/07/18 19:00 07:00 Intake Total 600 ml Balance 600 ml Intake Oral 600 ml # Voids 3 4 # Bowel Movements 1 General Appearance: WD/WN HEENT: normocephalic Respiratory/Chest: chest wall non-tender, lungs clear Cardiovascular: normal peripheral pulses, normal rate Abdomen: normal bowel sounds, soft, non tender Genitourinary: normal external genitalia Extremities: no cyanosis, no clubbing Neurologic/Psychiatric: flour blender II-XII grossly normal, no motor/sensory deficits Lymphatic: no neck adenopathy Microbiology Date/Time Source Procedure Growth Status 02/05/18 19:20 Urine,Clean Catch Urine Culture - Preliminary NO GROWTH AFTER 24 HOURS Resulted Laboratory Tests 02/07/18 07:10: White Blood Count 6.7, Red Blood Count 3.96L, Hemoglobin 11.5L, Hematocrit 36.2L , Mean Corpuscular Volume 91, Mean Corpuscular Hemoglobin 28.9, Mean Corpuscular Hemoglobin Concent 31.7L, Red Cell Distribution Width 14.0, Platelet Count 157, Mean Platelet Volume 8.9, Neutrophils (%) (Auto) 50.6, Lymphocytes (%) (Auto) 37.4, Monocytes (%) (Auto) 7.1, Eosinophils (%) (Auto) 3.7H, Basophils (%) (Auto) 1.1, Sodium Level 144, Potassium Level 4.1, Chloride Level 106, Carbon Dioxide Level 32, Anion Gap 6, Blood Urea Nitrogen 20H, Creatinine 1.0, Estimat Glomerular Filtration Rate > 60, Glucose Level 95, Calcium Level 9.1 Current Medications Medications (Trade) Dose Ordered Sig/Star Route PRN Reason Start Time Stop Time Status Last Admin Dose Admin Acetaminophen (Tylenol) 650 mg Q4H PRN ORAL fever 02/05/18 21:00 03/07/18 20:59 Al Hydroxide/Mg Hydroxide (Mylanta II) 30 ml Q6H PRN ORAL dyspepsia 02/05/18 21:00 03/07/18 20:59 Albuterol/ Ipratropium (Albuterol/ Ipratropium) 3 ml Q4H PRN HHN Shortness of Breath 02/06/18 07:45 02/11/18 07:44 Amlodipine Besylate (Norvasc) 5 mg DAILY ORAL 02/06/18 09:00 03/08/18 08:59 02/07/18 08:34 Aspirin (Ecotrin) 81 mg DAILY ORAL 02/06/18 09:00 03/08/18 08:59 02/07/18 08:34 Bupropion HCl (Wellbutrin XL) 300 mg DAILY ORAL 02/08/18 09:00 03/10/18 08:59 Dextrose (Dextrose 50%) STAT PRN IV Hypoglycemia 02/05/18 21:00 03/07/18 20:59 Escitalopram Oxalate (Lexapro) 10 mg DAILY ORAL 02/06/18 09:00 03/08/18 08:59 02/07/18 08:33 Heparin Sodium (Porcine) (Heparin 5000 units/ml) 5,000 units EVERY 12 HOURS SUBQ 02/05/18 21:00 03/07/18 20:59 02/06/18 21:13 Hydromorphone HCl (Dilaudid) 4 mg Q4H PRN ORAL severe pain 02/06/18 11:00 02/13/18 10:59 02/07/18 08:34 Ibuprofen (Advil) 600 mg THREE TIMES A DAY ORAL 02/06/18 09:00 03/08/18 08:59 02/06/18 09:12 Lorazepam (Ativan 2mg/ml 1ml) 0.5 mg Q4H PRN IV For Anxiety 02/05/18 21:00 02/12/18 20:59 02/07/18 05:10 Lorazepam (Ativan) 2 mg EVERY 12 HOURS ORAL 02/05/18 21:00 02/12/18 20:59 02/07/18 08:34 Morphine Sulfate (Morphine Sulfate) 4 mg Q4H PRN IVP Moderate Breakthru Pain (5-7) 02/07/18 11:00 02/12/18 10:59 02/07/18 11:03 Ondansetron HCl (Zofran) 4 mg Q6H PRN IVP Nausea & Vomiting 02/05/18 21:00 03/07/18 20:59 Pantoprazole (Protonix) 40 mg DAILY ORAL 02/06/18 09:00 03/08/18 08:59 02/07/18 08:34 Polyethylene Glycol (Miralax) 17 gm HSPRN PRN ORAL Constipation 02/05/18 21:00 03/07/18 20:59 02/07/18 02:56 Zolpidem Tartrate (Ambien) 5 mg HSPRN PRN ORAL Insomnia 02/05/18 21:00 02/12/18 20:59 02/07/18 01:26 Jonathan Cochran MD February 07, 2018 15:22
[2018-02-07 16:00] VITALS: BP 140/72
--- NOTE | 2018-02-07 23:21 | General Progress Note ---
Assessment/Plan Status: stable, progressing Assessment/Plan MDD anxiety d/o cont lexapro rec to taper down zoloft the pt is reluctant to med changes wants more pain meds Subjective Date patient seen: February 07, 2018 Neurologic/Psychiatric: Reports: anxiety, depressed, emotional problems Allergies: Coded Allergies: No Known Allergies (Verified Allergy, Mild, 03/28/07) Objective Last 24 Hour Vital Signs Date Time Temp Pulse Resp B/P (MAP) Pulse Ox O2 Delivery O2 Flow Rate FiO2 02/07/18 16:00 97.5 85 18 140/72 95 Room Air 97.5 02/07/18 12:00 98.0 71 19 114/63 96 Room Air 98.0 02/07/18 09:02 78 16 Room Air 21 02/07/18 08:34 84 143/74 02/07/18 08:00 97.6 84 19 143/74 98 Room Air 97.6 02/07/18 04:00 97.9 71 19 133/70 95 97.9 02/07/18 04:00 Room Air 02/07/18 00:00 97.9 78 20 128/83 95 97.9 02/07/18 00:00 Room Air Intake and Output 02/06/18 02/07/18 19:00 07:00 Intake Total 600 ml Balance 600 ml Intake Oral 600 ml # Voids 3 4 # Bowel Movements 1 Laboratory Tests 02/07/18 07:10: White Blood Count 6.7, Red Blood Count 3.96L, Hemoglobin 11.5L, Hematocrit 36.2L , Mean Corpuscular Volume 91, Mean Corpuscular Hemoglobin 28.9, Mean Corpuscular Hemoglobin Concent 31.7L, Red Cell Distribution Width 14.0, Platelet Count 157, Mean Platelet Volume 8.9, Neutrophils (%) (Auto) 50.6, Lymphocytes (%) (Auto) 37.4, Monocytes (%) (Auto) 7.1, Eosinophils (%) (Auto) 3.7H, Basophils (%) (Auto) 1.1, Sodium Level 144, Potassium Level 4.1, Chloride Level 106, Carbon Dioxide Level 32, Anion Gap 6, Blood Urea Nitrogen 20H, Creatinine 1.0, Estimat Glomerular Filtration Rate > 60, Glucose Level 95, Calcium Level 9.1 Height (Feet): 5 Height (Inches): 5.00 Weight (Pounds): 192 General Appearance: no apparent distress, alert Neurologic: oriented x 3, responsive, depressed affect Sindy Francois M.D. February 07, 2018 23:21
[2018-02-08] MEDS ORDERED: BuPROPion XL 150mg tab ORAL SCH (09:00)
--- NOTE | 2018-02-08 14:29 | Discharge Summary ---
Discharge Summary Discharge Summary Discharge Summary DATE OF ADMISSION: 02/05/2018 DATE OF DISCHARGE: 02/07/2018 ( patient left AGAINST MEDICAL ADVICE) REASON FOR ADMISSION: 67 years old female with past medical history significant for hypertension, COPD , osteoarthritis, degenerative disc disease, cervical spondylosis with radiculopathy, hepatitis C , depression and anxiety, spinal stenosis presented to emergency department complaining of back pain. Patient reported back pain radiating down her legs bilaterally. Patient was getting progressively worse. She denied history of kidney stones, no history of lower back surgery but reported history of neck fusion. Patient usually takes [place] for pain relief but at this time it did not help alleviate her symptoms. She denied bowel or bladder incontinence ; she denied dysuria, hematuria. No fevers , no chills, no chest pain or shortness of breath. No abdominal pain , no nausea or vomiting. Workup in emergency department was unremarkable: no leukocytosis,stable renal parameters ,potassium 3.3, stable hemoglobin and hematocrit. Urinalysis with evidence of pyuria and leukocyte esterase but with few bacteria and no urinary complaints. CT of L-spine revealed no acute findings. Patient was unable to walk and was admitted for intractable back pain CONSULTANTS: psychiatrist Pain specialist Dr. Tucker [facility]SE: Patient was admitted to medical surgical floor. Pain management was addressed. Pain specialist was consulted. Pain management provided as per pain specialist recommendations. Patient was working with physical and occupational therapists. Fall precautions were maintained. Patient was able to ambulate with a walker. Urine culture revealed no evidence of growth, no urinary complaints . Patient was asymptomatic, no fever, no leukocytosis. Patient was kept off antibiotics. Potassium was replaced. Renal parameters and electrolytes were closely monitored. Electrolytes were corrected as needed. Nephrotoxics were avoided. Blood pressure was managed with calcium channel colette and remained stable. Bowel regimen instituted. DVT and GI prophylaxis provided. Supplemental oxygen was on board as needed to keep pulse oximetry above 92%. No evidence of COPD exacerbation. Home medication for depression and anxiety were resumed. Psychiatrist seen and evaluated the patient and provided reality orientation and supportive therapy. customer strategy manager was working on discharging patient to custodial facility for short-term rehabilitation. On February 07 patient decided to leave AGAINST MEDICAL ADVICE. The risks and consequences of signing AGAINST MEDICAL ADVICE were discussed with patient in detail. Patient verbalized understanding, nevertheless signed AMA form and left FINAL DIAGNOSES: Intractable back pain Spinal stenosis DDD L-spine Hypokalemia DDD C-spine Cervical radiculopathy Cervical herniated disc Cervical spondylosis History of cervical spinal fusion Hypertension COPD Hepatitis C Depression and anxiety Akin (Danyell Rand NP February 08, 2018 14:29
== END 2018-02-07 17:30 | disposition left against medical advice (07) | DRG 552 ==
LOC: EMR 18:00 → 4E 20:30 → EDBEDREQ 20:41
DX: M48.00 Spinal stenosis, site unspecified (principal); E87.6 Hypokalemia; I10 Essential (primary) hypertension; J44.9 Chronic obstructive pulmonary disease, unspecified; B19.20 Unspecified viral hepatitis C without hepatic coma; F41.8 Other specified anxiety disorders; M50.10 Cervical disc disorder with radiculopathy, unspecified cervical region; K21.9 Gastro-esophageal reflux disease without esophagitis; M19.90 Unspecified osteoarthritis, unspecified site; Z53.21 Procedure and treatment not carried out due to patient leaving prior to being seen by health care provider
CPT/HCPCS: 36415; 71045; 72131; 80048; 80053; 81003; 81025; 84443; 85025; 87086; 94664; 99285; J2405

== ENCOUNTER 2018-02-26 17:12 | Inpatient (IN) | payer MEDICARE, OTHER ==
[~2018-02-26] VITALS: Ht 165.1 cm; Wt 85.7 kg
[2018-02-26 17:15] VITALS: BP 164/92
[2018-02-26] MEDS ORDERED: cefTRIAXone 1 GM in NS 55 ML IV STA (17:15)
[2018-02-26] MEDS ORDERED: Solu-MEDROL 125mg Inj IVP ONE (17:15)
[2018-02-26] MEDS ORDERED: Ipratropium 0.02% Inh Soln 2.5ml UD HHN ONE (17:15)
[2018-02-26] MEDS: Albuterol ud Inhalation HHN SCH ×3 (17:28→17:59)
--- NOTE | 2018-02-26 17:51 | Emergency Room Report ---
History of Present Illness General Chief Complaint: Dyspnea/Respdistress Source: Patient, EMS Present Illness HPI Patient presents with increased dyspnea and chest pain. His history of congestive heart failure however she's had fevers and a productive cough. She' s also been wheezing. She does not have an inhaler at this time. She's used one in the past. She has been smoking. This is not her worst attack. She finally called paramedics. They found her with expiratory wheezes and treated her with albuterol. She's had some improvement but states she still cannot breathe well. The pain is substernal and radiates towards her back. She rates it as 6/10 and pleuritic. She denies any calf pain or edema at this time. She has nausea and almost thrown up with coughing however this been no vomiting. She has used steroids in the past and prefers not to at this time. She measured her temperature last night and was 101. No dysuria, joint pain. She has chronic neck pain post fusion. In the past, when admitted, there have been problems with pain medicine use. Allergies: Coded Allergies: No Known Allergies (Verified , 03/28/07) Patient History Past Medical History: see triage record Past Surgical History: other - neck fusion Social History: Reports: smoking, drug use Social History Narrative at home Last Menstrual Period: Unk Reviewed Nursing Documentation: PMH: Agreed; PSxH: Agreed Nursing Documentation-PMH Hx Hypertension: Yes Hx Pacemaker: No Hx Asthma: No Hx COPD: Yes Hx Diabetes: No Hx Cancer: No Hx Gastrointestinal Problems: No Hx Dialysis: No Hx Neurological Problems: No Hx Cerebrovascular Accident: No Hx Seizures: No Review of Systems All Other Systems: negative except mentioned in HPI Physical Exam Vital Signs Date Time Temp Pulse Resp B/P (MAP) Pulse Ox O2 Delivery O2 Flow Rate FiO2 02/26/18 17:07 98.7 124 28 164/92 93 Room Air 98.8 02/26/18 17:28 21 Sp02 EP Interpretation: reviewed, normal General Appearance: well appearing, GCS 15, mild distress Head: normocephalic Eyes: bilateral eye normal inspection, bilateral eye PERRL ENT: moist mucus membranes Neck: supple Respiratory: wheezing, expiration, inspiration Cardiovascular #1: no edema, no JVD, tachycardia Cardiovascular #2: 2+ radial (R) Gastrointestinal: normal inspection, normal bowel sounds, non tender, no mass, non-distended Musculoskeletal: back normal, gait/station normal, normal range of motion, no calf tenderness, Bar's Sign negative Neurologic: alert, oriented x3, motor strength/tone normal, grossly normal Psychiatric: mood/affect normal Skin: normal inspection, warm/dry Medical Decision Making Diagnostic Impression: Primary Impression: Pneumonia Qualified Codes: J18.1 - Lobar pneumonia, unspecified organism Additional Impressions: Chest pain Qualified Codes: R07.9 - Chest pain, unspecified COPD exacerbation UTI (urinary tract infection) Qualified Codes: N39.0 - Urinary tract infection, site not specified ER Course Patient presents with dyspnea, fever and bronchospasm. Differential includes COPD exacerbation, pneumonia, acute coronary syndrome amongst others. The patient needs to be evaluated with EKG, chest x-ray and labs including blood cultures and lactate. The patient be treated with some Medrol and bronchodilators. In addition to that because she's had a fever antibiotics have been ordered. EKG without injury. Chest x-ray with atelectasis at the bases with a possible early right lower lobe infiltrate. Labs with elevated white count. Patient required aggressive treatment with beta agents was finally starting to improve. She refused to be on oxygen at her oxygen saturation was 90-91%. Patient was admitted to the hospital to telemetry due to the combination of chest pain, bronchospasm and early pneumonia. Laboratory Tests Test 02/26/18 17:25 02/26/18 17:50 White Blood Count 12.8 K/UL (4.8-10.8) H Red Blood Count 4.75 M/UL (4.20-5.40) Hemoglobin 13.3 G/DL (12.0-16.0) Hematocrit 42.2 % (37.0-47.0) Mean Corpuscular Volume 89 FL (80-99) Mean Corpuscular Hemoglobin 28.0 PG (27.0-31.0) Mean Corpuscular Hemoglobin Concent 31.6 G/DL (32.0-36.0) L Red Cell Distribution Width 13.8 % (11.6-14.8) Platelet Count 165 K/UL (150-450) Mean Platelet Volume 8.3 FL (6.5-10.1) Neutrophils (%) (Auto) 71.4 % (45.0-75.0) Lymphocytes (%) (Auto) 20.5 % (20.0-45.0) Monocytes (%) (Auto) 5.4 % (1.0-10.0) Eosinophils (%) (Auto) 1.6 % (0.0-3.0) Basophils (%) (Auto) 1.1 % (0.0-2.0) Prothrombin Time 10.0 SEC (9.30-11.50) Prothrombin Time INR 1.0 (0.9-1.1) PTT 27 SEC (23-33) Sodium Level 138 MMOL/L (136-145) Potassium Level 3.8 MMOL/L (3.5-5.1) Chloride Level 100 MMOL/L (98-107) Carbon Dioxide Level 31 MMOL/L (21-32) Anion Gap 7 mmol/L (5-15) Blood Urea Nitrogen 11 mg/dL (7-18) Creatinine 0.9 MG/DL (0.55-1.30) Estimate Glomerular Filtration Rate > 60 mL/min (>60) Glucose Level 111 MG/DL (74-106) H Lactic Acid Level 1.60 mmol/L (0.66-2.22) Calcium Level 9.2 MG/DL (8.5-10.1) Total Bilirubin 0.5 MG/DL (0.2-1.0) Aspartate Amino Transferase (AST) 35 U/L (15-37) Alanine Aminotransferase (ALT) 32 U/L (12-78) Alkaline Phosphatase 77 U/L (46-116) Total Creatine Kinase 232 U/L (26-308) Troponin I 0.000 ng/mL (0.000-0.056) Pro-B-Type Natriuretic Peptide 322 pg/mL (0-125) H Total Protein 8.2 G/DL (6.4-8.2) Albumin 4.6 G/DL (3.4-5.0) Globulin 3.6 g/dL Albumin/Globulin Ratio 1.3 (1.0-2.7) Urine Color Amanda Urine Appearance Slightly cloudy Urine pH 6 (4.5-8.0) Urine Specific [place] 1.025 (1.005-1.035) Urine Protein 3+ (NEGATIVE) H Urine Glucose (UA) Negative (NEGATIVE) Urine Ketones Negative (NEGATIVE) Urine Occult Blood 1+ (NEGATIVE) H Urine Nitrite Negative (NEGATIVE) Urine Bilirubin Negative (NEGATIVE) Urine Ictotest Negative Urine Urobilinogen Normal MG/DL (0.0-1.0) Urine Leukocyte Esterase 2+ (NEGATIVE) H Urine RBC 2-4 /HPF (0 - 2) H Urine WBC 15-20 /HPF (0 - 2) H Urine Squamous Epithelial Cells Many /LPF (NONE/OCC) H Urine Bacteria Moderate /HPF (NONE) H Urine Opiates Screen Positive (NEGATIVE) H Urine Barbiturates Screen Negative (NEGATIVE) Phencyclidine (PCP) Screen Negative (NEGATIVE) Urine Amphetamines Screen Negative (NEGATIVE) Urine Benzodiazepines Screen Positive (NEGATIVE) H Urine Cocaine Screen Negative (NEGATIVE) Urine Marijuana (THC) Screen Negative (NEGATIVE) EKG Diagnostic Results Rate: tachycardiac ST Segments: no acute changes Rhythm Strip Diag. Results EP Interpretation: yes Rhythm: no PVC's, no ectopy, other - Sinus tachycardia Chest X-Ray Diagnostic Results Chest X-Ray Diagnostic Results : Chest X-Ray Ordered: Yes # of Views/Limited/Complete: 1 View Indication: Other EP Interpretation: Yes Interpretation: no effusion, no pneumothorax, other - copd and possible early RLL infiltrate Last Vital Signs Date Time Temp Pulse Resp B/P (MAP) Pulse Ox O2 Delivery O2 Flow Rate FiO2 02/27/18 00:00 98.1 92 18 144/68 95 Room Air 98.1 02/26/18 21:00 21 Status: improved Disposition: ADMITTED INPATIENT Condition: Serious Emir Velasquez M.D. February 26, 2018 17:51
[2018-02-26 17:53] LABS: BASOPHILS % (AUTO) 1.1 % (0.0-2.0); EOSINOPHILS % (AUTO) 1.6 % (0.0-3.0); HEMATOCRIT 42.2 % (37.0-47.0); HEMOGLOBIN 13.3 G/DL (12.0-16.0); LYMPHOCYTES % (AUTO) 20.5 % (20.0-45.0); MEAN CORPUSCULAR VOLUME 89 FL (80-99); MONOCYTES % (AUTO) 5.4 % (1.0-10.0); NEUTROPHILS % (AUTO) 71.4 % (45.0-75.0); PLATELET COUNT 165 K/UL (150-450); RED BLOOD COUNT 4.75 M/UL (4.20-5.40); RED CELL DISTRIBUTION WIDTH 13.8 % (11.6-14.8); WHITE BLOOD COUNT 12.8 K/UL (4.8-10.8)
[2018-02-26 18:03] LABS: ANION GAP 7 mmol/L (5-15); BLOOD UREA NITROGEN 11 mg/dL (7-18); CALCIUM 9.2 MG/DL (8.5-10.1); CARBON DIOXIDE 31 MMOL/L (21-32); CHLORIDE 100 MMOL/L (98-107); CREATININE 0.9 MG/DL (0.55-1.30); POTASSIUM 3.8 MMOL/L (3.5-5.1); SODIUM 138 MMOL/L (136-145)
[2018-02-26 18:04] LABS: APPEARANCE,URINE SLIGHTLY CLOUDY; BILIRUBIN, URINE NEGATIVE (NEGATIVE); COLOR,URINE AMBER; GLUCOSE, URINE (UA) NEGATIVE (NEGATIVE); KETONES,URINE NEGATIVE (NEGATIVE); LEUKOCYTE ESTERASE ,URINE 2+ (NEGATIVE); NITRITE,URINE NEGATIVE (NEGATIVE); PH,URINE 6 (4.5-8.0); PROTEIN,URINE 3+ (NEGATIVE); UROBILINOGEN,URINE NORMAL MG/DL (0.0-1.0)
[2018-02-26 18:13] LABS: ALANINE AMINOTRANSFERASE 32 U/L (12-78); ALBUMIN 4.6 G/DL (3.4-5.0); ALBUMIN/GLOBULIN RATIO 1.3 (1.0-2.7); ALKALINE PHOSPHATASE 77 U/L (46-116); ASPARTATE AMINO TRANSFERASE 35 U/L (15-37); BILIRUBIN,TOTAL 0.5 MG/DL (0.2-1.0); CREATINE KINASE 232 U/L (26-308)
[2018-02-26] MEDS ORDERED: KLOR-CON 1010 MEQ PO (18:24)
[2018-02-26] MEDS ORDERED: BANOPHEN50 MG PO (18:24)
[2018-02-26] MEDS ORDERED: CRESTOR20 MG (18:24)
[2018-02-26] MEDS ORDERED: VITAMIN D35000 UNIT PO (18:24)
--- NOTE | 2018-02-26 18:25 | Diagnostic Imaging Report ---
EXAM: XR Chest, 1 View CLINICAL HISTORY: DYSPNEA TECHNIQUE: Frontal view of the chest. COMPARISON: Chest x-ray dated 02/07/18. FINDINGS: Lungs: Minimal subsegmental atelectasis in the lung bases. The lungs otherwise appear clear. Pleural space: Unremarkable. No pneumothorax. Heart: Unremarkable. No cardiomegaly. Mediastinum: Unremarkable. Bones/joints: Partial visualization of lower cervical spine fusion hardware. Mild degenerative changes throughout the visualized spine. Vasculature: Mild calcifications in the aortic arch. Tubes, lines and devices: EKG leads overlie the thorax. IMPRESSION: Minimal subsegmental atelectasis in the lung bases. The lungs otherwise appear clear.
[2018-02-26 19:30] VITALS: BP 119/50
[2018-02-26 20:30] VITALS: BP 126/62
[2018-02-26] MEDS ORDERED: Albuterol/Ipratropium 3ml neb HHN PRN (21:30)
[2018-02-26] MEDS ORDERED: Miralax 17gm pkt ORAL PRN (21:30)
--- NOTE | 2018-02-26 21:32 | History and Physical ---
History of Present Illness General Date patient seen: February 26, 2018 Reason for Hospitalization: Dyspnea/Respdistress Present Illness HPI 67 year old female with extensive PMHx including psychiatric disorder and pain med dependency, presented to ER with increased dyspnea and chest pain. fevers and a productive cough. She's also been wheezing. She has been smoking. Paramedics found her with expiratory wheezes and treated her with albuterol. She's had some improvement but states she still cannot breathe well. The pain is substernal and radiates towards her back. She rates it as 6/10 and pleuritic. She measured her temperature last night and was 101. she is admitted to telemetry for further work up. Allergies: Coded Allergies: No Known Allergies (Verified , 03/28/07) Medication History Scheduled Aspirin* (Aspir 81*), 81 MG ORAL DAILY, (Reported) Bupropion Hcl* (Wellbutrin Xl*), 150 MG ORAL BID, (Reported) Cholecalciferol (Vitamin D3) (Vitamin D3), 5,000 UNITS PO DAILY, (Reported) Hydrochlorothiazide* (Hydrochlorothiazide*), 25 MG ORAL DAILY, (Reported) Ibuprofen* (Motrin*), 600 MG ORAL THREE TIMES A DAY Lorazepam* (Ativan*), 1 MG ORAL THREE TIMES A DAY, (Reported) Potassium Chloride (Klor-Con 10), 10 MEQ PO DAILY, (Reported) Rosuvastatin Calcium* (Crestor*), 20 MG DAILY, (Reported) Sertraline Hcl* (Zoloft*), 200 MG ORAL DAILY, (Reported) Scheduled PRN Hydrocodone/Acetaminophen (Hydrocodon-Acetaminophn 10-325), 1 TAB ORAL Q4H PRN for For Pain, (Reported) Discontinued Medications Amlodipine Besylate* (Amlodipine Besylate*), 5 MG ORAL DAILY, (Reported) Discontinued Reason: Pt stopped taking med Diphenhydramine Hcl (Banophen), 50 MG PO DAILY, (Reported) Discontinued Reason: Pt stopped taking med Escitalopram Oxalate* (Lexapro*), 10 MG ORAL DAILY Discontinued Reason: MD discontinued med Lorazepam* (Ativan*), 2 MG ORAL EVERY 12 HOURS Discontinued Reason: Medication dose changed Pantoprazole* (Protonix*), 40 MG ORAL DAILY, (Reported) Discontinued Reason: Pt stopped taking med Potassium Chloride (K-Tab ER), Unknown Dose PO DAILY, (Reported) Discontinued Reason: Pt stopped taking med Rosuvastatin Calcium* (Crestor*), MG ORAL QHS, (Reported) Discontinued Reason: Pt stopped taking med Patient History Healthcare decision maker Resuscitation status Advanced Directive on File Past Medical/Surgical History Past Medical/Surgical History: (1) Cervical herniated disc (2) Cervical spondylosis (3) Cervical radiculopathy (4) HTN (hypertension) (5) Stenosis, spinal, lumbar (6) Anxiety (7) COPD (chronic obstructive pulmonary disease) Review of Systems All Other Systems: negative except mentioned in HPI Physical Exam General Appearance: WD/WN, no apparent distress Lines, tubes and drains: peripheral HEENT: normocephalic, atraumatic Neck: non-tender, normal alignment, normal inspection Respiratory/Chest: rhonchi - left, rhonchi - right, expiratory wheezing Cardiovascular/Chest: normal peripheral pulses, normal rate Abdomen: normal bowel sounds, non tender Last 24 Hour Vital Signs Date Time Temp Pulse Resp B/P (MAP) Pulse Ox O2 Delivery O2 Flow Rate FiO2 02/26/18 20:30 99.7 102 22 126/62 96 Room Air 21 99.7 02/26/18 19:30 99.2 104 24 119/50 94 Room Air 21 99.2 02/26/18 19:26 100.0 02/26/18 18:27 100.0 02/26/18 18:22 124 29 100 Room Air 21 02/26/18 17:59 121 23 100 Room Air 21 02/26/18 17:58 124 19 100 Room Air 21 02/26/18 17:40 120 28 99 Room Air 21 02/26/18 17:38 122 26 Room Air 21 02/26/18 17:38 122 24 100 Room Air 21 02/26/18 17:34 122 26 Room Air 21 02/26/18 17:28 122 26 99 Room Air 21 02/26/18 17:15 98.8 122 28 164/92 93 Room Air 98.8 02/26/18 17:07 98.7 124 28 164/92 93 Room Air 98.8 Laboratory Tests Test 02/26/18 17:25 02/26/18 17:50 White Blood Count 12.8 K/UL (4.8-10.8) H Red Blood Count 4.75 M/UL (4.20-5.40) Hemoglobin 13.3 G/DL (12.0-16.0) Hematocrit 42.2 % (37.0-47.0) Mean Corpuscular Volume 89 FL (80-99) Mean Corpuscular Hemoglobin 28.0 PG (27.0-31.0) Mean Corpuscular Hemoglobin Concent 31.6 G/DL (32.0-36.0) L Red Cell Distribution Width 13.8 % (11.6-14.8) Platelet Count 165 K/UL (150-450) Mean Platelet Volume 8.3 FL (6.5-10.1) Neutrophils (%) (Auto) 71.4 % (45.0-75.0) Lymphocytes (%) (Auto) 20.5 % (20.0-45.0) Monocytes (%) (Auto) 5.4 % (1.0-10.0) Eosinophils (%) (Auto) 1.6 % (0.0-3.0) Basophils (%) (Auto) 1.1 % (0.0-2.0) Prothrombin Time 10.0 SEC (9.30-11.50) Prothromb Time International Ratio 1.0 (0.9-1.1) Activated Partial Thromboplast Time 27 SEC (23-33) Sodium Level 138 MMOL/L (136-145) Potassium Level 3.8 MMOL/L (3.5-5.1) Chloride Level 100 MMOL/L (98-107) Carbon Dioxide Level 31 MMOL/L (21-32) Anion Gap 7 mmol/L (5-15) Blood Urea Nitrogen 11 mg/dL (7-18) Creatinine 0.9 MG/DL (0.55-1.30) Estimat Glomerular Filtration Rate > 60 mL/min (>60) Glucose Level 111 MG/DL (74-106) H Lactic Acid Level 1.60 mmol/L (0.66-2.22) Calcium Level 9.2 MG/DL (8.5-10.1) Total Bilirubin 0.5 MG/DL (0.2-1.0) Aspartate Amino Transf (AST/SGOT) 35 U/L (15-37) Alanine Aminotransferase (ALT/SGPT) 32 U/L (12-78) Alkaline Phosphatase 77 U/L (46-116) Total Creatine Kinase 232 U/L (26-308) Troponin I 0.000 ng/mL (0.000-0.056) Pro-B-Type Natriuretic Peptide 322 pg/mL (0-125) H Total Protein 8.2 G/DL (6.4-8.2) Albumin 4.6 G/DL (3.4-5.0) Globulin 3.6 g/dL Albumin/Globulin Ratio 1.3 (1.0-2.7) Urine Color Amanda Urine Appearance Slightly cloudy Urine pH 6 (4.5-8.0) Urine Specific [place] 1.025 (1.005-1.035) Urine Protein 3+ (NEGATIVE) H Urine Glucose (UA) Negative (NEGATIVE) Urine Ketones Negative (NEGATIVE) Urine Occult Blood 1+ (NEGATIVE) H Urine Nitrite Negative (NEGATIVE) Urine Bilirubin Negative (NEGATIVE) Urine Ictotest Negative Urine Urobilinogen Normal MG/DL (0.0-1.0) Urine Leukocyte Esterase 2+ (NEGATIVE) H Urine RBC 2-4 /HPF (0 - 2) H Urine WBC 15-20 /HPF (0 - 2) H Urine Squamous Epithelial Cells Many /LPF (NONE/OCC) H Urine Bacteria Moderate /HPF (NONE) H Urine Opiates Screen Positive (NEGATIVE) H Urine Barbiturates Screen Negative (NEGATIVE) Phencyclidine (PCP) Screen Negative (NEGATIVE) Urine Amphetamines Screen Negative (NEGATIVE) Urine Benzodiazepines Screen Positive (NEGATIVE) H Urine Cocaine Screen Negative (NEGATIVE) Urine Marijuana (THC) Screen Negative (NEGATIVE) Height (Feet): 5 Height (Inches): 5.00 Weight (Pounds): 180 Medications Current Medications Medications (Trade) Dose Ordered Sig/Star Route PRN Reason Start Time Stop Time Status Last Admin Dose Admin Acetaminophen (Tylenol) 650 mg Q4H PRN ORAL FEVER 02/26/18 21:30 03/28/18 21:29 UNV Albuterol/ Ipratropium (Albuterol/ Ipratropium) 3 ml EVERY 4 HOURS PRN HHN Shortness of Breath 02/26/18 21:30 03/03/18 21:29 UNV Bupropion HCl (Wellbutrin XL) 150 mg BID ORAL 02/27/18 09:00 03/29/18 08:59 UNV Cefepime HCl 2 gm/ Dextrose 110 ml @ 220 mls/hr EVERY 12 HOURS IV 02/27/18 09:00 03/06/18 08:59 UNV Dextrose (Dextrose 50%) STAT PRN IV Hypoglycemia 02/26/18 21:30 03/28/18 21:29 UNV Heparin Sodium (Porcine) (Heparin 5000 units/ml) 5,000 units EVERY 12 HOURS SUBQ 02/27/18 09:00 03/29/18 08:59 UNV Ibuprofen (Advil) 600 mg THREE TIMES A DAY ORAL 02/27/18 09:00 03/29/18 08:59 UNV Morphine Sulfate (Morphine Sulfate) 2 mg EVERY 4 HOURS PRN IVP Severe Pain (Pain Scale 7-10) 02/26/18 21:30 03/05/18 21:29 UNV Ondansetron HCl (Zofran) 4 mg Q6H PRN IVP Nausea & Vomiting 02/26/18 21:30 03/28/18 21:29 UNV Polyethylene Glycol (Miralax) 17 gm DAILYPRN PRN ORAL Constipation 02/26/18 21:30 03/28/18 21:29 UNV Sertraline HCl (Zoloft) 200 mg DAILY ORAL 02/27/18 09:00 03/29/18 08:59 UNV Vancomycin HCl 1 gm/Dextrose 275 ml @ 183.3 mls/ hr Q24H IV 02/26/18 23:00 03/03/18 22:59 UNV Assessment/Plan Problem List: (1) ACS (acute coronary syndrome) ICD Codes: I24.9 - Acute ischemic heart disease, unspecified SNOMED: 980109091 (2) Pneumonia ICD Codes: J18.9 - Pneumonia, unspecified organism SNOMED: 939939432 Qualifiers: Qualified Codes: J18.1 - Lobar pneumonia, unspecified organism (3) COPD (chronic obstructive pulmonary disease) ICD Codes: J44.9 - Chronic obstructive pulmonary disease, unspecified SNOMED: 46595085 (4) Costochondritis ICD Codes: M94.0 - Chondrocostal junction syndrome [[place]] SNOMED: 29066177 (5) Depression ICD Codes: F32.9 - Major depressive disorder, single episode, unspecified SNOMED: 63255540 (6) HTN (hypertension) ICD Codes: I10 - Essential (primary) hypertension SNOMED: 70943363 (7) Stenosis, spinal, lumbar ICD Codes: M48.06 - Spinal stenosis, lumbar region SNOMED: 66226955 (8) Anxiety ICD Codes: F41.9 - Anxiety disorder, unspecified SNOMED: 75114576 Assessment/Plan respiratory treatment check sputum iv abx check cultures titrate fio2 to sat of 92% dvt prophylaxis. Jonathan Cochran MD February 26, 2018 21:32
[2018-02-26 21:49] VITALS: BP 140/65
[2018-02-26] MEDS: Morphine Sulfate 4mg/ml Inj IVP PRN (22:51)
[2018-02-26] MEDS ORDERED: Vancomycin 1 GM in D5W 275 ML IVPB SCH (23:00)
[2018-02-26] MEDS ORDERED: Vancomycin 1500mg IVPB SCH (23:00)
[2018-02-27] VITALS: BP 144/68
[2018-02-27] MEDS: Morphine Sulfate 4mg/ml Inj IVP PRN ×5 (03:05→21:24)
[2018-02-27 04:00] VITALS: BP 145/65
[2018-02-27 08:00] VITALS: BP 151/85
[2018-02-27 08:21] LABS: HEMOGLOBIN 12.3 G/DL (12.0-16.0); MEAN CORPUSCULAR VOLUME 89 FL (80-99); PLATELET COUNT 166 K/UL (150-450); RED BLOOD COUNT 4.39 M/UL (4.20-5.40); RED CELL DISTRIBUTION WIDTH 13.9 % (11.6-14.8)
[2018-02-27] MEDS: Sertraline 100mg tab ORAL SCH (08:22)
[2018-02-27] MEDS: BuPROPion XL 150mg tab ORAL SCH (08:22)
[2018-02-27 08:36] LABS: ANION GAP 11 mmol/L (5-15); BLOOD UREA NITROGEN 12 mg/dL (7-18); CALCIUM 9.4 MG/DL (8.5-10.1); CARBON DIOXIDE 24 MMOL/L (21-32); CHLORIDE 101 MMOL/L (98-107); CREATININE 0.9 MG/DL (0.55-1.30); PHOSPHORUS 2.3 MG/DL (2.5-4.9); SODIUM 136 MMOL/L (136-145)
[2018-02-27] MEDS ORDERED: Cefepime HCl 2 GM in D5W 110 ML IV SCH (09:00)
[2018-02-27] MEDS ORDERED: BuPROPion XL 150mg tab ORAL SCH (09:00)
[2018-02-27] MEDS: Heparin 5000 units/ml inj SUBQ SCH ×2 (09:43→21:24)
[2018-02-27 12:00] VITALS: BP 159/83
--- NOTE | 2018-02-27 13:33 | Consultation ---
History of Present Illness General Date patient seen: February 27, 2018 Chief Complaint: Dyspnea/Respdistress Present Illness HPI 67 y/o F with hx of HTN, COPD, CHF, chronic neck pain s/p fusion, tobacco abuse presents to ED on 02/26 with SOB and pleuritic Chest pain (6/10 intensity), productive cough, wheezing and fever up to 101. Also nausea and dry heeves with coughing. Denies calf pain, edema, dysuria, joint pain. Tm 100,a febrile >12hrs mild leukocytosis, improving at RA CXR neg Allergies: Coded Allergies: No Known Allergies (Verified , 03/28/07) Medication History Scheduled Aspirin* (Aspir 81*), 81 MG ORAL DAILY, (Reported) Bupropion Hcl* (Wellbutrin Xl*), 150 MG ORAL BID, (Reported) Cholecalciferol (Vitamin D3) (Vitamin D3), 5,000 UNITS PO DAILY, (Reported) Hydrochlorothiazide* (Hydrochlorothiazide*), 25 MG ORAL DAILY, (Reported) Ibuprofen* (Motrin*), 600 MG ORAL THREE TIMES A DAY Lorazepam* (Ativan*), 1 MG ORAL THREE TIMES A DAY, (Reported) Potassium Chloride (Klor-Con 10), 10 MEQ PO DAILY, (Reported) Rosuvastatin Calcium* (Crestor*), 20 MG DAILY, (Reported) Sertraline Hcl* (Zoloft*), 200 MG ORAL DAILY, (Reported) Scheduled PRN Hydrocodone/Acetaminophen (Hydrocodon-Acetaminophn 10-325), 1 TAB ORAL Q4H PRN for For Pain, (Reported) Discontinued Medications Amlodipine Besylate* (Amlodipine Besylate*), 5 MG ORAL DAILY, (Reported) Discontinued Reason: Pt stopped taking med Diphenhydramine Hcl (Banophen), 50 MG PO DAILY, (Reported) Discontinued Reason: Pt stopped taking med Escitalopram Oxalate* (Lexapro*), 10 MG ORAL DAILY Discontinued Reason: MD discontinued med Lorazepam* (Ativan*), 2 MG ORAL EVERY 12 HOURS Discontinued Reason: Medication dose changed Pantoprazole* (Protonix*), 40 MG ORAL DAILY, (Reported) Discontinued Reason: Pt stopped taking med Potassium Chloride (K-Tab ER), Unknown Dose PO DAILY, (Reported) Discontinued Reason: Pt stopped taking med Rosuvastatin Calcium* (Crestor*), MG ORAL QHS, (Reported) Discontinued Reason: Pt stopped taking med Patient History Healthcare decision maker Resuscitation status Full Code Advanced Directive on File Patient History Narrative Pmhx: as above Shx: Reports: smoking, drug use Fhx: non contributory Review of Systems All Other Systems: negative except mentioned in HPI Physical Exam Physical Exam Narrative General Appearance: well appearing, mild distress HEENT: normocephalic bilateral eye PERRL, moist mucus membranes Neck: supple Respiratory: wheezing, expiration, inspiration Cardiovascular : no edema, no JVD, tachycardia Gastrointestinal: normal inspection, normal bowel sounds, non tender, no mass, non-distended Musculoskeletal: back normal, gait/station normal, normal range of motion Neurologic: alert, oriented x3, motor strength/tone normal, grossly normal Skin: normal inspection, warm/dry Last 24 Hour Vital Signs Date Time Temp Pulse Resp B/P (MAP) Pulse Ox O2 Delivery O2 Flow Rate FiO2 02/27/18 12:35 98.6 02/27/18 08:59 98.6 02/27/18 08:22 98.6 02/27/18 08:00 97.4 99 20 151/85 93 Room Air 97.4 02/27/18 04:00 98.6 83 20 145/65 95 Room Air 98.6 02/27/18 04:00 85 02/27/18 00:00 98.1 92 18 144/68 95 Room Air 98.1 02/27/18 00:00 94 02/26/18 21:49 99.1 101 22 140/65 96 Room Air 99.1 02/26/18 21:40 101 02/26/18 21:00 99.7 102 22 126/62 96 Room Air 21 99.7 02/26/18 20:30 99.7 102 22 126/62 96 Room Air 21 99.7 02/26/18 19:30 99.2 104 24 119/50 94 Room Air 21 99.2 02/26/18 19:26 100.0 02/26/18 18:27 100.0 02/26/18 18:22 124 29 100 Room Air 21 02/26/18 17:59 121 23 100 Room Air 21 02/26/18 17:58 124 19 100 Room Air 21 02/26/18 17:40 120 28 99 Room Air 21 02/26/18 17:38 122 26 Room Air 21 02/26/18 17:38 122 24 100 Room Air 21 02/26/18 17:34 122 26 Room Air 21 02/26/18 17:28 122 26 99 Room Air 21 02/26/18 17:15 98.8 122 28 164/92 93 Room Air 98.8 02/26/18 17:07 98.7 124 28 164/92 93 Room Air 98.8 Intake and Output 02/26/18 02/27/18 19:00 07:00 Intake Total 1000 ml Balance 1000 ml Intake Oral 600 ml IV Total 400 ml # Voids 1 2 Laboratory Tests Test 02/26/18 17:25 02/26/18 17:50 02/27/18 07:15 White Blood Count 12.8 K/UL (4.8-10.8) H 11.0 K/UL (4.8-10.8) H Red Blood Count 4.75 M/UL (4.20-5.40) 4.39 M/UL (4.20-5.40) Hemoglobin 13.3 G/DL (12.0-16.0) 12.3 G/DL (12.0-16.0) Hematocrit 42.2 % (37.0-47.0) 39.0 % (37.0-47.0) Mean Corpuscular Volume 89 FL (80-99) 89 FL (80-99) Mean Corpuscular Hemoglobin 28.0 PG (27.0-31.0) 28.0 PG (27.0-31.0) Mean Corpuscular Hemoglobin Concent 31.6 G/DL (32.0-36.0) L 31.5 G/DL (32.0-36.0) L Red Cell Distribution Width 13.8 % (11.6-14.8) 13.9 % (11.6-14.8) Platelet Count 165 K/UL (150-450) 166 K/UL (150-450) Mean Platelet Volume 8.3 FL (6.5-10.1) 8.9 FL (6.5-10.1) Neutrophils (%) (Auto) 71.4 % (45.0-75.0) % (45.0-75.0) Lymphocytes (%) (Auto) 20.5 % (20.0-45.0) % (20.0-45.0) Monocytes (%) (Auto) 5.4 % (1.0-10.0) % (1.0-10.0) Eosinophils (%) (Auto) 1.6 % (0.0-3.0) % (0.0-3.0) Basophils (%) (Auto) 1.1 % (0.0-2.0) % (0.0-2.0) Prothrombin Time 10.0 SEC (9.30-11.50) Prothromb Time International Ratio 1.0 (0.9-1.1) Activated Partial Thromboplast Time 27 SEC (23-33) Sodium Level 138 MMOL/L (136-145) 136 MMOL/L (136-145) Potassium Level 3.8 MMOL/L (3.5-5.1) 4.0 MMOL/L (3.5-5.1) Chloride Level 100 MMOL/L (98-107) 101 MMOL/L (98-107) Carbon Dioxide Level 31 MMOL/L (21-32) 24 MMOL/L (21-32) Anion Gap 7 mmol/L (5-15) 11 mmol/L (5-15) Blood Urea Nitrogen 11 mg/dL (7-18) 12 mg/dL (7-18) Creatinine 0.9 MG/DL (0.55-1.30) 0.9 MG/DL (0.55-1.30) Estimat Glomerular Filtration Rate > 60 mL/min (>60) > 60 mL/min (>60) Glucose Level 111 MG/DL (74-106) H 142 MG/DL (74-106) H Lactic Acid Level 1.60 mmol/L (0.66-2.22) Calcium Level 9.2 MG/DL (8.5-10.1) 9.4 MG/DL (8.5-10.1) Total Bilirubin 0.5 MG/DL (0.2-1.0) Aspartate Amino Transf (AST/SGOT) 35 U/L (15-37) Alanine Aminotransferase (ALT/SGPT) 32 U/L (12-78) Alkaline Phosphatase 77 U/L (46-116) Total Creatine Kinase 232 U/L (26-308) Troponin I 0.000 ng/mL (0.000-0.056) Pro-B-Type Natriuretic Peptide 322 pg/mL (0-125) H Total Protein 8.2 G/DL (6.4-8.2) Albumin 4.6 G/DL (3.4-5.0) 4.0 G/DL (3.4-5.0) Globulin 3.6 g/dL Albumin/Globulin Ratio 1.3 (1.0-2.7) Urine Color Amanda Urine Appearance Slightly cloudy Urine pH 6 (4.5-8.0) Urine Specific [place] 1.025 (1.005-1.035) Urine Protein 3+ (NEGATIVE) H Urine Glucose (UA) Negative (NEGATIVE) Urine Ketones Negative (NEGATIVE) Urine Occult Blood 1+ (NEGATIVE) H Urine Nitrite Negative (NEGATIVE) Urine Bilirubin Negative (NEGATIVE) Urine Ictotest Negative Urine Urobilinogen Normal MG/DL (0.0-1.0) Urine Leukocyte Esterase 2+ (NEGATIVE) H Urine RBC 2-4 /HPF (0 - 2) H Urine WBC 15-20 /HPF (0 - 2) H Urine Squamous Epithelial Cells Many /LPF (NONE/OCC) H Urine Bacteria Moderate /HPF (NONE) H Urine Opiates Screen Positive (NEGATIVE) H Urine Barbiturates Screen Negative (NEGATIVE) Phencyclidine (PCP) Screen Negative (NEGATIVE) Urine Amphetamines Screen Negative (NEGATIVE) Urine Benzodiazepines Screen Positive (NEGATIVE) H Urine Cocaine Screen Negative (NEGATIVE) Urine Marijuana (THC) Screen Negative (NEGATIVE) Differential Total Cells Counted 100 Neutrophils % (Manual) 92 % (45-75) H Lymphocytes % (Manual) 5 % (20-45) L Monocytes % (Manual) 3 % (1-10) Eosinophils % (Manual) 0 % (0-3) Basophils % (Manual) 0 % (0-2) Band Neutrophils 0 % (0-8) Platelet Estimate Adequate Platelet Morphology Normal Red Blood Cell Morphology Normal Phosphorus Level 2.3 MG/DL (2.5-4.9) L Microbiology Date/Time Source Procedure Growth Status 02/26/18 17:50 Urine,Clean Catch Urine Culture - Preliminary NO GROWTH Resulted Height (Feet): 5 Height (Inches): 5.00 Weight (Pounds): 180 Medications Current Medications Medications (Trade) Dose Ordered Sig/Star Route PRN Reason Start Time Stop Time Status Last Admin Dose Admin Acetaminophen (Tylenol) 650 mg Q4H PRN ORAL FEVER 02/26/18 21:30 03/28/18 21:29 Albuterol/ Ipratropium (Albuterol/ Ipratropium) 3 ml EVERY 4 HOURS PRN HHN Shortness of Breath 02/26/18 21:30 03/03/18 21:29 Bupropion HCl (Wellbutrin XL) 150 mg DAILY ORAL 02/27/18 09:00 03/29/18 08:59 02/27/18 08:22 Cefepime HCl 2 gm/ Dextrose 110 ml @ 220 mls/hr EVERY 12 HOURS IV 02/27/18 09:00 03/06/18 23:59 02/27/18 08:21 Dextrose (Dextrose 50%) 25 ml STAT PRN IV BS 60-69mg/dl 02/26/18 22:00 03/28/18 21:59 Dextrose (Dextrose 50%) 50 ml STAT PRN IV BS less than 60mg/dl 02/26/18 22:00 03/28/18 21:29 Heparin Sodium (Porcine) (Heparin 5000 units/ml) 5,000 units EVERY 12 HOURS SUBQ 02/27/18 09:00 03/29/18 08:59 02/27/18 09:43 Ibuprofen (Motrin) 600 mg THREE TIMES A DAY PRN ORAL Mild Pain (Pain Scale 1-3) 02/26/18 22:00 03/28/18 21:59 Morphine Sulfate (Morphine Sulfate) 2 mg EVERY 4 HOURS PRN IVP Severe Pain (Pain Scale 7-10) 02/26/18 21:30 03/05/18 21:29 02/27/18 12:35 Ondansetron HCl (Zofran) 4 mg Q6H PRN IVP Nausea & Vomiting 02/26/18 21:30 03/28/18 21:29 Polyethylene Glycol (Miralax) 17 gm DAILYPRN PRN ORAL Constipation 02/26/18 21:30 03/28/18 21:29 Sertraline HCl (Zoloft) 200 mg DAILY ORAL 02/27/18 09:00 03/29/18 08:59 02/27/18 08:22 Vancomycin HCl (Vanco rx to dose) 1 ea DAILY PRN MISC Per rx protocol 02/26/18 23:00 03/28/18 22:59 Vancomycin/Sodium Chloride 250 ml @ 166.667 mls/hr Q12HR@1100,2300 IVPB 02/27/18 23:00 03/04/18 22:59 Assessment/Plan Assessment/Plan Abx: IV Vanco 02/26- Cefepime 02/27- Ceftriaxone x1 02/26 Levaquin x1 02/26 Assessment: Bronchitis- r/o flu -CXR: Minimal subsegmental atelectasis in the lung bases. The lungs otherwise appear clear. Low grade fever/mild leukocytosis, improving -u/a wbc 15-20, nit neg, leuk +2; ucx NTD HTN COPD CHF chronic neck pain s/p fusion tobacco abuse Plan: -Switch IV Vanco #2 and Cefepime #1 to PO Levaquin -influenza sc -f/u cx -Monitor CBC/BMP, temperatures -aspiration precautions Thank you for this consultation. Will continue to follow along with you. Discussed with Carol Titus M.D. February 27, 2018 13:33
[2018-02-27] MEDS ORDERED: LORazepam Inj 2mg/ml 1ml IV PRN (14:30)
--- NOTE | 2018-02-27 15:02 | Pulmonology Progress Note ---
Assessment/Plan Problems: (1) ACS (acute coronary syndrome) (2) Pneumonia (3) COPD (chronic obstructive pulmonary disease) (4) Costochondritis (5) Depression (6) HTN (hypertension) (7) Stenosis, spinal, lumbar (8) Anxiety Assessment/Plan check sputum abx titrate fio2 to sat of 92% check electrolytes psych to see Subjective ROS Limited/Unobtainable: No Constitutional: Reports: no symptoms HEENT: Repors: no symptoms Allergies: Coded Allergies: No Known Allergies (Verified , 03/28/07) Objective Last 24 Hour Vital Signs Date Time Temp Pulse Resp B/P (MAP) Pulse Ox O2 Delivery O2 Flow Rate FiO2 02/27/18 13:05 98.6 02/27/18 12:35 98.6 02/27/18 09:25 88 20 Room Air 21 02/27/18 08:22 98.6 02/27/18 08:00 97.4 99 20 151/85 93 Room Air 97.4 02/27/18 04:00 98.6 83 20 145/65 95 Room Air 98.6 02/27/18 04:00 85 02/27/18 00:00 98.1 92 18 144/68 95 Room Air 98.1 02/27/18 00:00 94 02/26/18 21:49 99.1 101 22 140/65 96 Room Air 99.1 02/26/18 21:40 101 02/26/18 21:00 99.7 102 22 126/62 96 Room Air 21 99.7 02/26/18 20:30 99.7 102 22 126/62 96 Room Air 21 99.7 02/26/18 19:30 99.2 104 24 119/50 94 Room Air 21 99.2 02/26/18 19:26 100.0 02/26/18 18:27 100.0 02/26/18 18:22 124 29 100 Room Air 21 02/26/18 17:59 121 23 100 Room Air 21 02/26/18 17:58 124 19 100 Room Air 21 02/26/18 17:40 120 28 99 Room Air 21 02/26/18 17:38 122 26 Room Air 21 02/26/18 17:38 122 24 100 Room Air 21 02/26/18 17:34 122 26 Room Air 21 02/26/18 17:28 122 26 99 Room Air 21 02/26/18 17:15 98.8 122 28 164/92 93 Room Air 98.8 02/26/18 17:07 98.7 124 28 164/92 93 Room Air 98.8 Intake and Output 02/26/18 02/27/18 19:00 07:00 Intake Total 1000 ml Balance 1000 ml Intake Oral 600 ml IV Total 400 ml # Voids 1 2 Objective anxious, General Appearance: cachetic HEENT: normocephalic, atraumatic Respiratory/Chest: chest wall non-tender, lungs clear Breasts: no masses Cardiovascular: normal peripheral pulses Abdomen: normal bowel sounds, soft, non tender Genitourinary: normal external genitalia Extremities: no cyanosis 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 Microbiology Date/Time Source Procedure Growth Status 02/26/18 17:50 Urine,Clean Catch Urine Culture - Preliminary NO GROWTH Resulted Laboratory Tests 02/26/18 17:25: White Blood Count 12.8H, Red Blood Count 4.75, Hemoglobin 13.3, Hematocrit 42.2 , Mean Corpuscular Volume 89, Mean Corpuscular Hemoglobin 28.0, Mean Corpuscular Hemoglobin Concent 31.6L, Red Cell Distribution Width 13.8, Platelet Count 165, Mean Platelet Volume 8.3, Neutrophils (%) (Auto) 71.4, Lymphocytes (%) (Auto) 20.5, Monocytes (%) (Auto) 5.4, Eosinophils (%) (Auto) 1.6, Basophils (%) (Auto) 1.1, Prothrombin Time 10.0, Prothromb Time International Ratio 1.0, Activated Partial Thromboplast Time 27, Sodium Level 138, Potassium Level 3.8, Chloride Level 100, Carbon Dioxide Level 31, Anion Gap 7, Blood Urea Nitrogen 11, Creatinine 0.9, Estimat Glomerular Filtration Rate > 60, Glucose Level 111H, Lactic Acid Level 1.60, Calcium Level 9.2, Total Bilirubin 0.5, Aspartate Amino Transf (AST/SGOT) 35, Alanine Aminotransferase ( ALT/SGPT) 32, Alkaline Phosphatase 77, Total Creatine Kinase 232, Troponin I 0.000, Pro-B-Type Natriuretic Peptide 322H, Total Protein 8.2, Albumin 4.6, Globulin 3.6, Albumin/Globulin Ratio 1.3 02/26/18 17:50: Urine Color Amanda, Urine Appearance Slightly cloudy, Urine pH 6, Urine Specific [place] 1.025, Urine Protein 3+H, Urine Glucose (UA) Negative, Urine Ketones Negative, Urine Occult Blood 1+H, Urine Nitrite Negative, Urine Bilirubin Negative, Urine Ictotest Negative, Urine Urobilinogen Normal, Urine Leukocyte Esterase 2+H, Urine RBC 2-4H, Urine WBC 15-20H, Urine Squamous Epithelial Cells ManyH, Urine Bacteria ModerateH, Urine Opiates Screen PositiveH, Urine Barbiturates Screen Negative, Phencyclidine (PCP) Screen Negative, Urine Amphetamines Screen Negative, Urine Benzodiazepines Screen PositiveH, Urine Cocaine Screen Negative, Urine Marijuana (THC) Screen Negative 02/27/18 07:15: White Blood Count 11.0H, Red Blood Count 4.39, Hemoglobin 12.3, Hematocrit 39.0 , Mean Corpuscular Volume 89, Mean Corpuscular Hemoglobin 28.0, Mean Corpuscular Hemoglobin Concent 31.5L, Red Cell Distribution Width 13.9, Platelet Count 166, Mean Platelet Volume 8.9, Neutrophils (%) (Auto) , Lymphocytes (%) (Auto) , Monocytes (%) (Auto) , Eosinophils (%) (Auto) , Basophils (%) (Auto) , Sodium Level 136, Potassium Level 4.0, Chloride Level 101 , Carbon Dioxide Level 24, Anion Gap 11, Blood Urea Nitrogen 12, Creatinine 0.9 , Estimat Glomerular Filtration Rate > 60, Glucose Level 142H, Calcium Level 9.4 , Albumin 4.0, Differential Total Cells Counted 100, Neutrophils % (Manual) 92H , Lymphocytes % (Manual) 5L, Monocytes % (Manual) 3, Eosinophils % (Manual) 0, Basophils % (Manual) 0, Band Neutrophils 0, Platelet Estimate Adequate, Platelet Morphology Normal, Red Blood Cell Morphology Normal, Phosphorus Level 2.3L Current Medications Medications (Trade) Dose Ordered Sig/Star Route PRN Reason Start Time Stop Time Status Last Admin Dose Admin Acetaminophen (Tylenol) 650 mg Q4H PRN ORAL FEVER 02/26/18 21:30 03/28/18 21:29 Albuterol/ Ipratropium (Albuterol/ Ipratropium) 3 ml EVERY 4 HOURS PRN HHN Shortness of Breath 02/26/18 21:30 03/03/18 21:29 Bupropion HCl (Wellbutrin XL) 150 mg DAILY ORAL 02/27/18 09:00 03/29/18 08:59 02/27/18 08:22 Dextrose (Dextrose 50%) 25 ml STAT PRN IV BS 60-69mg/dl 02/26/18 22:00 03/28/18 21:59 Dextrose (Dextrose 50%) 50 ml STAT PRN IV BS less than 60mg/dl 02/26/18 22:00 03/28/18 21:29 Heparin Sodium (Porcine) (Heparin 5000 units/ml) 5,000 units EVERY 12 HOURS SUBQ 02/27/18 09:00 03/29/18 08:59 02/27/18 09:43 Ibuprofen (Motrin) 600 mg THREE TIMES A DAY PRN ORAL Mild Pain (Pain Scale 1-3) 02/26/18 22:00 03/28/18 21:59 Levofloxacin (Levaquin) 500 mg DAILY@2100 ORAL 02/27/18 21:00 03/06/18 23:59 Lorazepam (Ativan 2mg/ml 1ml) 1 mg EVERY 8 HOURS PRN IV For Anxiety 02/27/18 14:30 03/06/18 14:29 02/27/18 14:45 Morphine Sulfate (Morphine Sulfate) 2 mg EVERY 4 HOURS PRN IVP Severe Pain (Pain Scale 7-10) 02/26/18 21:30 03/05/18 21:29 02/27/18 12:35 Ondansetron HCl (Zofran) 4 mg Q6H PRN IVP Nausea & Vomiting 02/26/18 21:30 03/28/18 21:29 Polyethylene Glycol (Miralax) 17 gm DAILYPRN PRN ORAL Constipation 02/26/18 21:30 03/28/18 21:29 Sertraline HCl (Zoloft) 200 mg DAILY ORAL 02/27/18 09:00 03/29/18 08:59 02/27/18 08:22 Jonathan Cochran MD February 27, 2018 15:02
[2018-02-27 16:00] VITALS: BP 158/87
[2018-02-27] MEDS: LORazepam 1mg tab ORAL SCH (17:42)
[2018-02-27 20:00] VITALS: BP 156/83
[2018-02-27] MEDS ORDERED: Levofloxacin 500mg tab ORAL SCH (21:00)
--- NOTE | 2018-02-27 22:30 | Consultation ---
History of Present Illness General Date patient seen: February 27, 2018 Time patient seen: 21:00 Chief Complaint: Dyspnea/Respdistress Present Illness HPI Patietn admitted with respiratory distress and wheezing. Hx of drug abuse and smoking Hx of HTN and HLD Allergies: Coded Allergies: No Known Allergies (Verified , 03/28/07) Medication History Scheduled Aspirin* (Aspir 81*), 81 MG ORAL DAILY, (Reported) Bupropion Hcl* (Wellbutrin Xl*), 150 MG ORAL BID, (Reported) Cholecalciferol (Vitamin D3) (Vitamin D3), 5,000 UNITS PO DAILY, (Reported) Hydrochlorothiazide* (Hydrochlorothiazide*), 25 MG ORAL DAILY, (Reported) Ibuprofen* (Motrin*), 600 MG ORAL THREE TIMES A DAY Lorazepam* (Ativan*), 1 MG ORAL THREE TIMES A DAY, (Reported) Potassium Chloride (Klor-Con 10), 10 MEQ PO DAILY, (Reported) Rosuvastatin Calcium* (Crestor*), 20 MG DAILY, (Reported) Sertraline Hcl* (Zoloft*), 200 MG ORAL DAILY, (Reported) Scheduled PRN Hydrocodone/Acetaminophen (Hydrocodon-Acetaminophn 10-325), 1 TAB ORAL Q4H PRN for For Pain, (Reported) Discontinued Medications Amlodipine Besylate* (Amlodipine Besylate*), 5 MG ORAL DAILY, (Reported) Discontinued Reason: Pt stopped taking med Diphenhydramine Hcl (Banophen), 50 MG PO DAILY, (Reported) Discontinued Reason: Pt stopped taking med Escitalopram Oxalate* (Lexapro*), 10 MG ORAL DAILY Discontinued Reason: MD discontinued med Lorazepam* (Ativan*), 2 MG ORAL EVERY 12 HOURS Discontinued Reason: Medication dose changed Pantoprazole* (Protonix*), 40 MG ORAL DAILY, (Reported) Discontinued Reason: Pt stopped taking med Potassium Chloride (K-Tab ER), Unknown Dose PO DAILY, (Reported) Discontinued Reason: Pt stopped taking med Rosuvastatin Calcium* (Crestor*), MG ORAL QHS, (Reported) Discontinued Reason: Pt stopped taking med Patient History History Provided By: Patient, Medical Record Healthcare decision maker Resuscitation status Full Code Advanced Directive on File Review of Systems Constitutional: Reports: malaise, weakness Eye: Reports: no symptoms ENT: Reports: no symptoms Respiratory: Reports: shortness of breath, wheezing, WHITT, sputum Cardiovascular: Reports: no symptoms Gastrointestinal: Reports: no symptoms Genitourinary: Reports: no symptoms Musculoskeletal: Reports: no symptoms Skin: Reports: no symptoms Psychiatric: Reports: no symptoms Neurological: Reports: no symptoms Endocrine: Reports: no symptoms Physical Exam General Appearance: lethargic, mild distress Lines, tubes and drains: peripheral HEENT: normocephalic Neck: non-tender Respiratory/Chest: expiratory wheezing Cardiovascular/Chest: normal peripheral pulses, normal rate, regular rhythm Abdomen: normal bowel sounds Extremities: normal range of motion Skin Exam: normal pigmentation 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 Last 24 Hour Vital Signs Date Time Temp Pulse Resp B/P (MAP) Pulse Ox O2 Delivery O2 Flow Rate FiO2 02/27/18 20:24 105 26 99 Room Air 21 02/27/18 20:10 106 24 Room Air 21 02/27/18 20:09 106 24 96 Room Air 21 02/27/18 20:00 97.3 94 22 156/83 96 Nasal Cannula 2.0 97.3 02/27/18 17:27 97.6 02/27/18 16:49 97.6 02/27/18 16:00 97.6 103 20 158/87 93 Room Air 97.6 02/27/18 16:00 96 02/27/18 13:05 98.6 02/27/18 12:35 98.6 02/27/18 12:00 97.5 94 20 159/83 93 Room Air 97.5 02/27/18 12:00 90 02/27/18 09:25 88 20 Room Air 21 02/27/18 08:22 98.6 02/27/18 08:00 101 02/27/18 08:00 97.4 99 20 151/85 93 Room Air 97.4 02/27/18 04:00 98.6 83 20 145/65 95 Room Air 98.6 02/27/18 04:00 85 02/27/18 00:00 98.1 92 18 144/68 95 Room Air 98.1 02/27/18 00:00 94 Intake and Output 02/26/18 02/27/18 19:00 07:00 Intake Total 1000 ml Balance 1000 ml Intake Oral 600 ml IV Total 400 ml # Voids 1 2 Laboratory Tests Test 5/27/18 07:15 White Blood Count 11.0 K/UL (4.8-10.8) H Red Blood Count 4.39 M/UL (4.20-5.40) Hemoglobin 12.3 G/DL (12.0-16.0) Hematocrit 39.0 % (37.0-47.0) Mean Corpuscular Volume 89 FL (80-99) Mean Corpuscular Hemoglobin 28.0 PG (27.0-31.0) Mean Corpuscular Hemoglobin Concent 31.5 G/DL (32.0-36.0) L Red Cell Distribution Width 13.9 % (11.6-14.8) Platelet Count 166 K/UL (150-450) Mean Platelet Volume 8.9 FL (6.5-10.1) Neutrophils (%) (Auto) % (45.0-75.0) Lymphocytes (%) (Auto) % (20.0-45.0) Monocytes (%) (Auto) % (1.0-10.0) Eosinophils (%) (Auto) % (0.0-3.0) Basophils (%) (Auto) % (0.0-2.0) Differential Total Cells Counted 100 Neutrophils % (Manual) 92 % (45-75) H Lymphocytes % (Manual) 5 % (20-45) L Monocytes % (Manual) 3 % (1-10) Eosinophils % (Manual) 0 % (0-3) Basophils % (Manual) 0 % (0-2) Band Neutrophils 0 % (0-8) Platelet Estimate Adequate Platelet Morphology Normal Red Blood Cell Morphology Normal Sodium Level 136 MMOL/L (136-145) Potassium Level 4.0 MMOL/L (3.5-5.1) Chloride Level 101 MMOL/L (98-107) Carbon Dioxide Level 24 MMOL/L (21-32) Anion Gap 11 mmol/L (5-15) Blood Urea Nitrogen 12 mg/dL (7-18) Creatinine 0.9 MG/DL (0.55-1.30) Estimat Glomerular Filtration Rate > 60 mL/min (>60) Glucose Level 142 MG/DL (74-106) H Calcium Level 9.4 MG/DL (8.5-10.1) Phosphorus Level 2.3 MG/DL (2.5-4.9) L Albumin 4.0 G/DL (3.4-5.0) Height (Feet): 5 Height (Inches): 5.00 Weight (Pounds): 180 Medications Current Medications Medications (Trade) Dose Ordered Sig/Star Route PRN Reason Start Time Stop Time Status Last Admin Dose Admin Acetaminophen (Tylenol) 650 mg Q4H PRN ORAL FEVER 02/26/18 21:30 03/28/18 21:29 Albuterol/ Ipratropium (Albuterol/ Ipratropium) 3 ml EVERY 4 HOURS PRN HHN Shortness of Breath 02/26/18 21:30 03/03/18 21:29 02/27/18 20:09 Bupropion HCl (Wellbutrin XL) 150 mg DAILY ORAL 02/27/18 09:00 03/29/18 08:59 02/27/18 08:22 Dextrose (Dextrose 50%) 25 ml STAT PRN IV BS 60-69mg/dl 02/26/18 22:00 03/28/18 21:59 Dextrose (Dextrose 50%) 50 ml STAT PRN IV BS less than 60mg/dl 02/26/18 22:00 03/28/18 21:29 Heparin Sodium (Porcine) (Heparin 5000 units/ml) 5,000 units EVERY 12 HOURS SUBQ 02/27/18 09:00 03/29/18 08:59 02/27/18 21:24 Ibuprofen (Motrin) 600 mg THREE TIMES A DAY PRN ORAL Mild Pain (Pain Scale 1-3) 02/26/18 22:00 03/28/18 21:59 Levofloxacin (Levaquin) 500 mg DAILY@2100 ORAL 02/27/18 21:00 03/06/18 23:59 02/27/18 21:24 Lorazepam (Ativan) 1 mg THREE TIMES A DAY ORAL 02/27/18 18:00 03/06/18 17:59 02/27/18 17:42 Morphine Sulfate (Morphine Sulfate) 4 mg Q4H PRN IVP Severe Pain (Pain Scale 7-10) 02/27/18 15:00 03/06/18 14:59 02/27/18 21:24 Ondansetron HCl (Zofran) 4 mg Q6H PRN IVP Nausea & Vomiting 02/26/18 21:30 03/28/18 21:29 Polyethylene Glycol (Miralax) 17 gm DAILYPRN PRN ORAL Constipation 02/26/18 21:30 03/28/18 21:29 Sertraline HCl (Zoloft) 200 mg DAILY ORAL 02/27/18 09:00 03/29/18 08:59 02/27/18 08:22 Assessment/Plan Assessment/Plan 1) ACS (acute coronary syndrome) (2) Pneumonia (3) COPD (chronic obstructive pulmonary disease) (4) Costochondritis (5) Depression (6) HTN (hypertension) (7) Stenosis, spinal, lumbar (8) Anxiety Pulmonary Toilet Breathing treatments Medrol BP control Ambulate Antibiotics Follow up cultures Emir Garvin M.D. February 27, 2018 22:30
--- NOTE | 2018-02-27 22:53 | Consultation ---
History of Present Illness General Date patient seen: February 26, 2018 Chief Complaint: Dyspnea/Respdistress Present Illness HPI 67 y/o F with hx of HTN, COPD, CHF, chronic neck pain s/p fusion, tobacco abuse presents to ED with sob. the pt has hx of depression and anxiety. the pt is currently on zoloft and ativan. the pt has no si/hi Allergies: Coded Allergies: No Known Allergies (Verified , 03/28/07) Medication History Scheduled Aspirin* (Aspir 81*), 81 MG ORAL DAILY, (Reported) Bupropion Hcl* (Wellbutrin Xl*), 150 MG ORAL BID, (Reported) Cholecalciferol (Vitamin D3) (Vitamin D3), 5,000 UNITS PO DAILY, (Reported) Hydrochlorothiazide* (Hydrochlorothiazide*), 25 MG ORAL DAILY, (Reported) Ibuprofen* (Motrin*), 600 MG ORAL THREE TIMES A DAY Lorazepam* (Ativan*), 1 MG ORAL THREE TIMES A DAY, (Reported) Potassium Chloride (Klor-Con 10), 10 MEQ PO DAILY, (Reported) Rosuvastatin Calcium* (Crestor*), 20 MG DAILY, (Reported) Sertraline Hcl* (Zoloft*), 200 MG ORAL DAILY, (Reported) Scheduled PRN Hydrocodone/Acetaminophen (Hydrocodon-Acetaminophn 10-325), 1 TAB ORAL Q4H PRN for For Pain, (Reported) Discontinued Medications Amlodipine Besylate* (Amlodipine Besylate*), 5 MG ORAL DAILY, (Reported) Discontinued Reason: Pt stopped taking med Diphenhydramine Hcl (Banophen), 50 MG PO DAILY, (Reported) Discontinued Reason: Pt stopped taking med Escitalopram Oxalate* (Lexapro*), 10 MG ORAL DAILY Discontinued Reason: MD discontinued med Lorazepam* (Ativan*), 2 MG ORAL EVERY 12 HOURS Discontinued Reason: Medication dose changed Pantoprazole* (Protonix*), 40 MG ORAL DAILY, (Reported) Discontinued Reason: Pt stopped taking med Potassium Chloride (K-Tab ER), Unknown Dose PO DAILY, (Reported) Discontinued Reason: Pt stopped taking med Rosuvastatin Calcium* (Crestor*), MG ORAL QHS, (Reported) Discontinued Reason: Pt stopped taking med Patient History Limited by: medical condition History Provided By: Patient, Medical Record, PMD Healthcare decision maker Resuscitation status Full Code Advanced Directive on File Past Medical/Surgical History Past Medical/Surgical History: (1) Hypercholesteremia (2) Osteoarthritis (3) DDD (degenerative disc disease) (4) GERD (gastroesophageal reflux disease) (5) Chronic pain (6) Degenerative disc disease, cervical (7) copd (8) Odynophagia (9) Anemia (10) Dysphagia (11) Sepsis (12) Bronchitis (13) COPD exacerbation (14) Knee pain, left (15) UTI (urinary tract infection) (16) Chest pain (17) Pneumonia (18) COPD (chronic obstructive pulmonary disease) (19) Anxiety (20) Cervical spondylosis (21) Stenosis, spinal, lumbar (22) HTN (hypertension) (23) Cervical radiculopathy (24) Cervical herniated disc (25) Depression (26) Costochondritis (27) ACS (acute coronary syndrome) Review of Systems Psychiatric: Reports: prior hx, anxiety, depressed feelings, emotional problems Physical Exam General Appearance: WD/WN, no apparent distress, alert Neurologic: oriented x 3, responsive, depressed affect Last 24 Hour Vital Signs Date Time Temp Pulse Resp B/P (MAP) Pulse Ox O2 Delivery O2 Flow Rate FiO2 02/27/18 20:24 105 26 99 Room Air 21 02/27/18 20:10 106 24 Room Air 21 02/27/18 20:09 106 24 96 Room Air 21 02/27/18 20:00 97.3 94 22 156/83 96 Nasal Cannula 2.0 97.3 02/27/18 17:27 97.6 02/27/18 16:49 97.6 02/27/18 16:00 97.6 103 20 158/87 93 Room Air 97.6 02/27/18 16:00 96 02/27/18 13:05 98.6 02/27/18 12:35 98.6 02/27/18 12:00 97.5 94 20 159/83 93 Room Air 97.5 02/27/18 12:00 90 02/27/18 09:25 88 20 Room Air 21 02/27/18 08:22 98.6 02/27/18 08:00 101 02/27/18 08:00 97.4 99 20 151/85 93 Room Air 97.4 02/27/18 04:00 98.6 83 20 145/65 95 Room Air 98.6 02/27/18 04:00 85 02/27/18 00:00 98.1 92 18 144/68 95 Room Air 98.1 02/27/18 00:00 94 Intake and Output 02/26/18 02/27/18 19:00 07:00 Intake Total 1000 ml Balance 1000 ml Intake Oral 600 ml IV Total 400 ml # Voids 1 2 Laboratory Tests Test 02/27/18 07:15 White Blood Count 11.0 K/UL (4.8-10.8) H Red Blood Count 4.39 M/UL (4.20-5.40) Hemoglobin 12.3 G/DL (12.0-16.0) Hematocrit 39.0 % (37.0-47.0) Mean Corpuscular Volume 89 FL (80-99) Mean Corpuscular Hemoglobin 28.0 PG (27.0-31.0) Mean Corpuscular Hemoglobin Concent 31.5 G/DL (32.0-36.0) L Red Cell Distribution Width 13.9 % (11.6-14.8) Platelet Count 166 K/UL (150-450) Mean Platelet Volume 8.9 FL (6.5-10.1) Neutrophils (%) (Auto) % (45.0-75.0) Lymphocytes (%) (Auto) % (20.0-45.0) Monocytes (%) (Auto) % (1.0-10.0) Eosinophils (%) (Auto) % (0.0-3.0) Basophils (%) (Auto) % (0.0-2.0) Differential Total Cells Counted 100 Neutrophils % (Manual) 92 % (45-75) H Lymphocytes % (Manual) 5 % (20-45) L Monocytes % (Manual) 3 % (1-10) Eosinophils % (Manual) 0 % (0-3) Basophils % (Manual) 0 % (0-2) Band Neutrophils 0 % (0-8) Platelet Estimate Adequate Platelet Morphology Normal Red Blood Cell Morphology Normal Sodium Level 136 MMOL/L (136-145) Potassium Level 4.0 MMOL/L (3.5-5.1) Chloride Level 101 MMOL/L (98-107) Carbon Dioxide Level 24 MMOL/L (21-32) Anion Gap 11 mmol/L (5-15) Blood Urea Nitrogen 12 mg/dL (7-18) Creatinine 0.9 MG/DL (0.55-1.30) Estimat Glomerular Filtration Rate > 60 mL/min (>60) Glucose Level 142 MG/DL (74-106) H Calcium Level 9.4 MG/DL (8.5-10.1) Phosphorus Level 2.3 MG/DL (2.5-4.9) L Albumin 4.0 G/DL (3.4-5.0) Height (Feet): 5 Height (Inches): 5.00 Weight (Pounds): 180 Medications Current Medications Medications (Trade) Dose Ordered Sig/Star Route PRN Reason Start Time Stop Time Status Last Admin Dose Admin Acetaminophen (Tylenol) 650 mg Q4H PRN ORAL FEVER 02/26/18 21:30 03/28/18 21:29 Albuterol/ Ipratropium (Albuterol/ Ipratropium) 3 ml EVERY 4 HOURS PRN HHN Shortness of Breath 02/26/18 21:30 03/03/18 21:29 02/27/18 20:09 Bupropion HCl (Wellbutrin XL) 150 mg DAILY ORAL 02/27/18 09:00 03/29/18 08:59 02/27/18 08:22 Dextrose (Dextrose 50%) 25 ml STAT PRN IV BS 60-69mg/dl 02/26/18 22:00 03/28/18 21:59 Dextrose (Dextrose 50%) 50 ml STAT PRN IV BS less than 60mg/dl 02/26/18 22:00 03/28/18 21:29 Heparin Sodium (Porcine) (Heparin 5000 units/ml) 5,000 units EVERY 12 HOURS SUBQ 02/27/18 09:00 03/29/18 08:59 02/27/18 21:24 Ibuprofen (Motrin) 600 mg THREE TIMES A DAY PRN ORAL Mild Pain (Pain Scale 1-3) 02/26/18 22:00 03/28/18 21:59 Levofloxacin (Levaquin) 500 mg DAILY@2100 ORAL 02/27/18 21:00 03/06/18 23:59 02/27/18 21:24 Lorazepam (Ativan) 1 mg THREE TIMES A DAY ORAL 02/27/18 18:00 03/06/18 17:59 02/27/18 17:42 Morphine Sulfate (Morphine Sulfate) 4 mg Q4H PRN IVP Severe Pain (Pain Scale 7-10) 02/27/18 15:00 03/06/18 14:59 02/27/18 21:24 Ondansetron HCl (Zofran) 4 mg Q6H PRN IVP Nausea & Vomiting 02/26/18 21:30 03/28/18 21:29 Polyethylene Glycol (Miralax) 17 gm DAILYPRN PRN ORAL Constipation 02/26/18 21:30 03/28/18 21:29 Sertraline HCl (Zoloft) 200 mg DAILY ORAL 02/27/18 09:00 03/29/18 08:59 02/27/18 08:22 Assessment/Plan Status: stable, progressing Assessment/Plan mdd anxiety cont zoloft cont Sindy Sherman M.D. February 27, 2018 22:53
[2018-02-27] MEDS ORDERED: Vancomycin 750mg/NS 250ml IVPB SCH (23:00)
[2018-02-27] MEDS ORDERED: DiphenhydrAMINE 25mg/10ml Elixir ORAL PRN (23:30)
[2018-02-28] VITALS (7 sets, daily range): BP systolic 140–163; BP diastolic 65–89
[2018-02-28] MEDS: Morphine Sulfate 4mg/ml Inj IVP PRN ×3 (03:25→19:06)
[2018-02-28 08:45] LABS: BASOPHILS % (AUTO) 0.6 % (0.0-2.0); HEMATOCRIT 37.1 % (37.0-47.0); HEMOGLOBIN 11.6 G/DL (12.0-16.0); LYMPHOCYTES % (AUTO) 18.3 % (20.0-45.0); MEAN CORPUSCULAR VOLUME 89 FL (80-99); MONOCYTES % (AUTO) 6.7 % (1.0-10.0); NEUTROPHILS % (AUTO) 73.5 % (45.0-75.0); PLATELET COUNT 174 K/UL (150-450); RED BLOOD COUNT 4.17 M/UL (4.20-5.40); RED CELL DISTRIBUTION WIDTH 14.2 % (11.6-14.8); WHITE BLOOD COUNT 11.6 K/UL (4.8-10.8)
[2018-02-28] MEDS: Sertraline 100mg tab ORAL SCH (09:00)
[2018-02-28] MEDS: LORazepam 1mg tab ORAL SCH ×3 (09:00→18:56)
[2018-02-28] MEDS: BuPROPion XL 150mg tab ORAL SCH (09:00)
[2018-02-28] MEDS: Heparin 5000 units/ml inj SUBQ SCH ×2 (09:02→20:58)
[2018-02-28 09:41] LABS: ALANINE AMINOTRANSFERASE 29 U/L (12-78); ALBUMIN 3.7 G/DL (3.4-5.0); ALKALINE PHOSPHATASE 63 U/L (46-116); ANION GAP 9 mmol/L (5-15); ASPARTATE AMINO TRANSFERASE 31 U/L (15-37); BILIRUBIN,TOTAL 0.2 MG/DL (0.2-1.0); BLOOD UREA NITROGEN 19 mg/dL (7-18); CARBON DIOXIDE 29 MMOL/L (21-32); CHLORIDE 104 MMOL/L (98-107); CREATININE 1.1 MG/DL (0.55-1.30); PHOSPHORUS 2.9 MG/DL (2.5-4.9); POTASSIUM 3.7 MMOL/L (3.5-5.1); SODIUM 142 MMOL/L (136-145)
--- NOTE | 2018-02-28 11:02 | Pulmonology Progress Note ---
Assessment/Plan Problems: (1) ACS (acute coronary syndrome) (2) Pneumonia (3) COPD (chronic obstructive pulmonary disease) (4) Costochondritis (5) Depression (6) HTN (hypertension) (7) Stenosis, spinal, lumbar (8) Anxiety Assessment/Plan on levofloxacin check sputum abx titrate fio2 to sat of 92% check electrolytes psych to see symptomatic treatment Subjective ROS Limited/Unobtainable: No Interval Events: doing better Allergies: Coded Allergies: No Known Allergies (Verified , 03/28/07) Objective Last 24 Hour Vital Signs Date Time Temp Pulse Resp B/P (MAP) Pulse Ox O2 Delivery O2 Flow Rate FiO2 02/28/18 08:53 76 20 Nasal Cannula 2.0 28 02/28/18 08:00 100 02/28/18 08:00 97.7 86 20 145/65 94 Room Air 97.7 02/28/18 04:00 77 02/28/18 04:00 98.0 76 22 140/73 96 Room Air 98.0 02/28/18 00:00 80 02/28/18 00:00 97.5 86 19 142/76 97 Room Air 97.5 02/27/18 20:24 105 26 99 Room Air 21 02/27/18 20:10 106 24 Room Air 21 02/27/18 20:09 106 24 96 Room Air 21 02/27/18 20:00 97.3 94 22 156/83 96 Nasal Cannula 2.0 97.3 02/27/18 20:00 94 02/27/18 17:27 97.6 02/27/18 16:49 97.6 02/27/18 16:00 97.6 103 20 158/87 93 Room Air 97.6 02/27/18 16:00 96 02/27/18 13:05 98.6 02/27/18 12:35 98.6 02/27/18 12:00 97.5 94 20 159/83 93 Room Air 97.5 02/27/18 12:00 90 Intake and Output 02/27/18 02/28/18 19:00 07:00 Intake Total 860 ml 290 ml Balance 860 ml 290 ml Intake Oral 860 ml 290 ml # Voids 3 3 Objective anxious, General Appearance: WD/WN HEENT: normocephalic, atraumatic Respiratory/Chest: chest wall non-tender, lungs clear Breasts: no masses Cardiovascular: normal peripheral pulses, regularly irregular, no JVD Abdomen: normal bowel sounds, soft, non tender Extremities: no clubbing Microbiology Date/Time Source Procedure Growth Status 02/26/18 17:31 Blood Blood Culture - Preliminary NO GROWTH AFTER 24 HOURS Resulted 02/26/18 17:25 Blood Blood Culture - Preliminary NO GROWTH AFTER 24 HOURS Resulted 02/28/18 03:20 Nasopharynx Influenza Types A,B Antigen (OLIVIA) - Final Complete 02/26/18 17:50 Urine,Clean Catch Urine Culture - Preliminary Mixed Gram Positive Organism Resulted Laboratory Tests 02/28/18 08:30: White Blood Count 11.6H, Red Blood Count 4.17L, Hemoglobin 11.6L, Hematocrit 37.1, Mean Corpuscular Volume 89, Mean Corpuscular Hemoglobin 27.9, Mean Corpuscular Hemoglobin Concent 31.3L, Red Cell Distribution Width 14.2, Platelet Count 174, Mean Platelet Volume 7.7, Neutrophils (%) (Auto) 73.5, Lymphocytes (%) (Auto) 18.3L, Monocytes (%) (Auto) 6.7, Eosinophils (%) (Auto) 1.0, Basophils (%) (Auto) 0.6, Erythrocyte Sedimentation Rate 24, Sodium Level 142, Potassium Level 3.7, Chloride Level 104, Carbon Dioxide Level 29, Anion Gap 9, Blood Urea Nitrogen 19H, Creatinine 1.1, Estimat Glomerular Filtration Rate > 60, Glucose Level 140H, Calcium Level 9.0, Phosphorus Level 2.9, Magnesium Level 2.2, Total Bilirubin 0.2, Aspartate Amino Transf (AST/SGOT) 31, Alanine Aminotransferase (ALT/SGPT) 29, Alkaline Phosphatase 63, C-Reactive Protein, Quantitative 3.9H, Total Protein 7.3, Albumin 3.7, Globulin 3.6, Albumin/Globulin Ratio 1.0 Current Medications Medications (Trade) Dose Ordered Sig/Star Route PRN Reason Start Time Stop Time Status Last Admin Dose Admin Acetaminophen (Tylenol) 650 mg Q4H PRN ORAL FEVER 02/26/18 21:30 03/28/18 21:29 Albuterol/ Ipratropium (Albuterol/ Ipratropium) 3 ml EVERY 4 HOURS PRN HHN Shortness of Breath 02/26/18 21:30 03/03/18 21:29 02/27/18 20:09 Bupropion HCl (Wellbutrin XL) 150 mg DAILY ORAL 02/27/18 09:00 03/29/18 08:59 02/28/18 09:00 Dextrose (Dextrose 50%) 25 ml STAT PRN IV BS 60-69mg/dl 02/26/18 22:00 03/28/18 21:59 Dextrose (Dextrose 50%) 50 ml STAT PRN IV BS less than 60mg/dl 02/26/18 22:00 03/28/18 21:29 Diphenhydramine HCl (Benadryl) 15 mg BEDTIME PRN ORAL SLEEP 02/27/18 23:30 03/29/18 23:29 02/27/18 23:44 Heparin Sodium (Porcine) (Heparin 5000 units/ml) 5,000 units EVERY 12 HOURS SUBQ 02/27/18 09:00 03/29/18 08:59 02/28/18 09:02 Ibuprofen (Motrin) 600 mg THREE TIMES A DAY PRN ORAL Mild Pain (Pain Scale 1-3) 02/26/18 22:00 03/28/18 21:59 Levofloxacin (Levaquin) 500 mg DAILY@2100 ORAL 02/27/18 21:00 03/06/18 23:59 02/27/18 21:24 Lorazepam (Ativan) 1 mg THREE TIMES A DAY ORAL 02/27/18 18:00 03/06/18 17:59 02/28/18 09:00 Morphine Sulfate (Morphine Sulfate) 4 mg Q4H PRN IVP Severe Pain (Pain Scale 7-10) 02/27/18 15:00 03/06/18 14:59 02/28/18 03:25 Ondansetron HCl (Zofran) 4 mg Q6H PRN IVP Nausea & Vomiting 02/26/18 21:30 03/28/18 21:29 Polyethylene Glycol (Miralax) 17 gm DAILYPRN PRN ORAL Constipation 02/26/18 21:30 03/28/18 21:29 02/28/18 09:00 Sertraline HCl (Zoloft) 200 mg DAILY ORAL 02/27/18 09:00 03/29/18 08:59 02/28/18 09:00 Jonathan Cochran MD February 28, 2018 11:02
--- NOTE | 2018-02-28 16:51 | Infectious Diseases Prog Note ---
Assessment/Plan Assessment/Plan Assessment: Bronchitis- -CXR: Minimal subsegmental atelectasis in the lung bases. The lungs otherwise appear clear. -influenza sc Low grade fever/mild leukocytosis, improving -u/a wbc 15-20, nit neg, leuk +2; ucx NTD HTN COPD CHF chronic neck pain s/p fusion tobacco abuse Plan: -Continue PO Levaquin abx d#3/5 -02/27 SP IV Vanco #2 and Cefepime #1 -02/26 Ceftriaxone and Levaquin x1 -f/u cx -Monitor CBC/BMP, temperatures -aspiration precautions Thank you for this consultation. Will continue to follow along with you. Discussed with RN. Subjective Allergies: Coded Allergies: No Known Allergies (Verified , 03/28/07) Subjective afebrile in ~48hrs at RA Bcx NTD Objective Vital Signs Last 24 Hour Vital Signs Date Time Temp Pulse Resp B/P (MAP) Pulse Ox O2 Delivery O2 Flow Rate FiO2 02/28/18 16:00 98.2 81 20 163/81 96 Room Air 98.2 02/28/18 16:00 75 02/28/18 12:00 80 02/28/18 12:00 97.7 81 20 147/77 99 Nasal Cannula 2.0 97.7 02/28/18 08:53 76 20 Nasal Cannula 2.0 28 02/28/18 08:00 100 02/28/18 08:00 97.7 86 20 145/65 94 Room Air 97.7 02/28/18 04:00 77 02/28/18 04:00 98.0 76 22 140/73 96 Room Air 98.0 02/28/18 00:00 80 02/28/18 00:00 97.5 86 19 142/76 97 Room Air 97.5 02/27/18 20:24 105 26 99 Room Air 21 02/27/18 20:10 106 24 Room Air 21 02/27/18 20:09 106 24 96 Room Air 21 02/27/18 20:00 97.3 94 22 156/83 96 Nasal Cannula 2.0 97.3 02/27/18 20:00 94 02/27/18 17:27 97.6 02/27/18 16:49 97.6 Height (Feet): 5 Height (Inches): 5.00 Weight (Pounds): 180 Objective General Appearance: well appearing, mild distress HEENT: normocephalic bilateral eye PERRL, moist mucus membranes Neck: supple Respiratory: wheezing, expiration, inspiration Cardiovascular : no edema, no JVD, tachycardia Gastrointestinal: normal inspection, normal bowel sounds, non tender, no mass, non-distended Musculoskeletal: back normal, gait/station normal, normal range of motion Neurologic: alert, oriented x3, motor strength/tone normal, grossly normal Skin: normal inspection, warm/dry Microbiology Date/Time Source Procedure Growth Status 02/26/18 17:31 Blood Blood Culture - Preliminary NO GROWTH AFTER 24 HOURS Resulted 02/26/18 17:25 Blood Blood Culture - Preliminary NO GROWTH AFTER 24 HOURS Resulted 02/28/18 03:20 Nasopharynx Influenza Types A,B Antigen (OLIVIA) - Final Complete 02/26/18 17:50 Urine,Clean Catch Urine Culture - Preliminary Mixed Gram Positive Organism Resulted Laboratory Tests Test 02/28/18 08:30 White Blood Count 11.6 K/UL (4.8-10.8) H Red Blood Count 4.17 M/UL (4.20-5.40) L Hemoglobin 11.6 G/DL (12.0-16.0) L Hematocrit 37.1 % (37.0-47.0) Mean Corpuscular Volume 89 FL (80-99) Mean Corpuscular Hemoglobin 27.9 PG (27.0-31.0) Mean Corpuscular Hemoglobin Concent 31.3 G/DL (32.0-36.0) L Red Cell Distribution Width 14.2 % (11.6-14.8) Platelet Count 174 K/UL (150-450) Mean Platelet Volume 7.7 FL (6.5-10.1) Neutrophils (%) (Auto) 73.5 % (45.0-75.0) Lymphocytes (%) (Auto) 18.3 % (20.0-45.0) L Monocytes (%) (Auto) 6.7 % (1.0-10.0) Eosinophils (%) (Auto) 1.0 % (0.0-3.0) Basophils (%) (Auto) 0.6 % (0.0-2.0) Erythrocyte Sedimentation Rate 24 MM/HR (0-30) Sodium Level 142 MMOL/L (136-145) Potassium Level 3.7 MMOL/L (3.5-5.1) Chloride Level 104 MMOL/L (98-107) Carbon Dioxide Level 29 MMOL/L (21-32) Anion Gap 9 mmol/L (5-15) Blood Urea Nitrogen 19 mg/dL (7-18) H Creatinine 1.1 MG/DL (0.55-1.30) Estimat Glomerular Filtration Rate > 60 mL/min (>60) Glucose Level 140 MG/DL (74-106) H Calcium Level 9.0 MG/DL (8.5-10.1) Phosphorus Level 2.9 MG/DL (2.5-4.9) Magnesium Level 2.2 MG/DL (1.8-2.4) Total Bilirubin 0.2 MG/DL (0.2-1.0) Aspartate Amino Transf (AST/SGOT) 31 U/L (15-37) Alanine Aminotransferase (ALT/SGPT) 29 U/L (12-78) Alkaline Phosphatase 63 U/L (46-116) C-Reactive Protein, Quantitative 3.9 mg/dL (0.00-0.90) H Total Protein 7.3 G/DL (6.4-8.2) Albumin 3.7 G/DL (3.4-5.0) Globulin 3.6 g/dL Albumin/Globulin Ratio 1.0 (1.0-2.7) Current Medications Medications (Trade) Dose Ordered Sig/Star Route PRN Reason Start Time Stop Time Status Last Admin Dose Admin Acetaminophen (Tylenol) 650 mg Q4H PRN ORAL FEVER 02/28/18 17:30 03/28/18 21:29 UNV Albuterol/ Ipratropium (Albuterol/ Ipratropium) 3 ml EVERY 4 HOURS PRN HHN Shortness of Breath 02/28/18 17:00 03/03/18 21:29 UNV Bupropion HCl (Wellbutrin XL) 150 mg DAILY ORAL 03/01/18 09:00 03/29/18 08:59 UNV Clonidine HCl (Catapres Tab) 0.1 mg Q6H PRN ORAL for SBP > 160 02/28/18 22:15 03/30/18 16:14 UNV Dextrose (Dextrose 50%) 25 ml STAT PRN IV BS 60-69mg/dl 02/28/18 22:00 03/28/18 21:59 UNV Dextrose (Dextrose 50%) 50 ml STAT PRN IV BS less than 60mg/dl 02/28/18 22:00 03/28/18 21:29 UNV Diphenhydramine HCl (Benadryl) 15 mg BEDTIME PRN ORAL SLEEP 02/28/18 21:00 03/29/18 23:29 UNV Heparin Sodium (Porcine) (Heparin 5000 units/ml) 5,000 units EVERY 12 HOURS SUBQ 02/28/18 21:00 03/29/18 08:59 UNV Ibuprofen (Motrin) 600 mg THREE TIMES A DAY PRN ORAL Mild Pain (Pain Scale 1-3) 02/28/18 18:00 03/28/18 21:59 UNV Levofloxacin (Levaquin) 500 mg DAILY@2100 ORAL 02/28/18 21:00 03/06/18 23:59 UNV Lorazepam (Ativan) 1 mg THREE TIMES A DAY ORAL 02/28/18 18:00 03/06/18 17:59 UNV Morphine Sulfate (Morphine Sulfate) 4 mg Q4H PRN IVP Severe Pain (Pain Scale 7-10) 02/28/18 19:00 03/06/18 14:59 UNV Ondansetron HCl (Zofran) 4 mg Q6H PRN IVP Nausea & Vomiting 02/28/18 21:30 03/28/18 21:29 UNV Polyethylene Glycol (Miralax) 17 gm DAILYPRN PRN ORAL Constipation 02/28/18 21:30 03/28/18 21:29 UNV Sertraline HCl (Zoloft) 200 mg DAILY ORAL 03/01/18 09:00 03/29/18 08:59 UNV Carol Ruano M.D. February 28, 2018 16:51
[2018-02-28] MEDS ORDERED: Miralax 17gm pkt ORAL PRN (17:00)
[2018-02-28] MEDS ORDERED: Albuterol/Ipratropium 3ml neb HHN PRN (17:00)
--- NOTE | 2018-02-28 20:08 | General Progress Note ---
Assessment/Plan Assessment/Plan mdd anxiety cont zoloft cont ativan Subjective Date patient seen: February 28, 2018 Neurologic/Psychiatric: Reports: anxiety, depressed, emotional problems Allergies: Coded Allergies: No Known Allergies (Verified , 03/28/07) Objective Last 24 Hour Vital Signs Date Time Temp Pulse Resp B/P (MAP) Pulse Ox O2 Delivery O2 Flow Rate FiO2 02/28/18 19:26 97.9 90 20 149/88 96 Room Air 97.9 02/28/18 16:00 98.2 81 20 163/81 96 Room Air 98.2 02/28/18 16:00 75 02/28/18 12:00 80 02/28/18 12:00 97.7 81 20 147/77 99 Nasal Cannula 2.0 97.7 02/28/18 08:53 76 20 Nasal Cannula 2.0 28 02/28/18 08:00 100 02/28/18 08:00 97.7 86 20 145/65 94 Room Air 97.7 02/28/18 04:00 77 02/28/18 04:00 98.0 76 22 140/73 96 Room Air 98.0 02/28/18 00:00 80 02/28/18 00:00 97.5 86 19 142/76 97 Room Air 97.5 02/27/18 20:24 105 26 99 Room Air 21 02/27/18 20:10 106 24 Room Air 21 02/27/18 20:09 106 24 96 Room Air 21 Intake and Output 02/27/18 02/28/18 19:00 07:00 Intake Total 860 ml 290 ml Balance 860 ml 290 ml Intake Oral 860 ml 290 ml # Voids 3 3 Laboratory Tests 02/28/18 08:30: White Blood Count 11.6H, Red Blood Count 4.17L, Hemoglobin 11.6L, Hematocrit 37.1, Mean Corpuscular Volume 89, Mean Corpuscular Hemoglobin 27.9, Mean Corpuscular Hemoglobin Concent 31.3L, Red Cell Distribution Width 14.2, Platelet Count 174, Mean Platelet Volume 7.7, Neutrophils (%) (Auto) 73.5, Lymphocytes (%) (Auto) 18.3L, Monocytes (%) (Auto) 6.7, Eosinophils (%) (Auto) 1.0, Basophils (%) (Auto) 0.6, Erythrocyte Sedimentation Rate 24, Sodium Level 142, Potassium Level 3.7, Chloride Level 104, Carbon Dioxide Level 29, Anion Gap 9, Blood Urea Nitrogen 19H, Creatinine 1.1, Estimat Glomerular Filtration Rate > 60, Glucose Level 140H, Calcium Level 9.0, Phosphorus Level 2.9, Magnesium Level 2.2, Total Bilirubin 0.2, Aspartate Amino Transf (AST/SGOT) 31, Alanine Aminotransferase (ALT/SGPT) 29, Alkaline Phosphatase 63, C-Reactive Protein, Quantitative 3.9H, Total Protein 7.3, Albumin 3.7, Globulin 3.6, Albumin/Globulin Ratio 1.0 Height (Feet): 5 Height (Inches): 5.00 Weight (Pounds): 180 General Appearance: WD/WN, no apparent distress, alert Neurologic: oriented x 3, responsive, depressed affect Sindy Francois M.D. February 28, 2018 20:08
[2018-02-28] MEDS: Levofloxacin 500mg tab ORAL SCH (20:55)
--- NOTE | 2018-02-28 23:07 | Cardiology Progress Note ---
Assessment/Plan Assessment/Plan 1) ACS (acute coronary syndrome) (2) Pneumonia (3) COPD (chronic obstructive pulmonary disease) (4) Costochondritis (5) Depression (6) HTN (hypertension) (7) Stenosis, spinal, lumbar (8) Anxiety Pulmonary Toilet Breathing treatments Medrol Add singulair BP control Ambulate Antibiotics Follow up cultures Avoid morphine CV stable Dispo planning Subjective ROS Limited/Unobtainable: Yes Cardiovascular: Reports: no symptoms Respiratory: Reports: wheezing Gastrointestinal/Abdominal: Reports: no symptoms Genitourinary: Reports: no symptoms Subjective clinically improving, wheezing improved, minimal oxygen, no distress, no acute events Objective Last 24 Hour Vital Signs Date Time Temp Pulse Resp B/P (MAP) Pulse Ox O2 Delivery O2 Flow Rate FiO2 02/28/18 19:26 97.9 90 20 149/88 96 Room Air 97.9 02/28/18 16:00 98.2 81 20 163/81 96 Room Air 98.2 02/28/18 16:00 75 02/28/18 12:00 80 02/28/18 12:00 97.7 81 20 147/77 99 Nasal Cannula 2.0 97.7 02/28/18 08:53 76 20 Nasal Cannula 2.0 28 02/28/18 08:00 100 02/28/18 08:00 97.7 86 20 145/65 94 Room Air 97.7 02/28/18 04:00 77 02/28/18 04:00 98.0 76 22 140/73 96 Room Air 98.0 02/28/18 00:00 80 02/28/18 00:00 97.5 86 19 142/76 97 Room Air 97.5 General Appearance: no apparent distress EENT: PERRL/EOMI Neck: non-tender Rhythm: NSR Cardiovascular: normal peripheral pulses, normal rate, regularly irregular Respiratory/Chest: expiratory wheezing Abdomen: normal bowel sounds Extremities: normal range of motion Intake and Output 02/27/18 02/28/18 19:00 07:00 Intake Total 860 ml 290 ml Balance 860 ml 290 ml Intake Oral 860 ml 290 ml # Voids 3 3 Laboratory Tests Test 02/28/18 08:30 White Blood Count 11.6 K/UL (4.8-10.8) H Red Blood Count 4.17 M/UL (4.20-5.40) L Hemoglobin 11.6 G/DL (12.0-16.0) L Hematocrit 37.1 % (37.0-47.0) Mean Corpuscular Volume 89 FL (80-99) Mean Corpuscular Hemoglobin 27.9 PG (27.0-31.0) Mean Corpuscular Hemoglobin Concent 31.3 G/DL (32.0-36.0) L Red Cell Distribution Width 14.2 % (11.6-14.8) Platelet Count 174 K/UL (150-450) Mean Platelet Volume 7.7 FL (6.5-10.1) Neutrophils (%) (Auto) 73.5 % (45.0-75.0) Lymphocytes (%) (Auto) 18.3 % (20.0-45.0) L Monocytes (%) (Auto) 6.7 % (1.0-10.0) Eosinophils (%) (Auto) 1.0 % (0.0-3.0) Basophils (%) (Auto) 0.6 % (0.0-2.0) Erythrocyte Sedimentation Rate 24 MM/HR (0-30) Sodium Level 142 MMOL/L (136-145) Potassium Level 3.7 MMOL/L (3.5-5.1) Chloride Level 104 MMOL/L (98-107) Carbon Dioxide Level 29 MMOL/L (21-32) Anion Gap 9 mmol/L (5-15) Blood Urea Nitrogen 19 mg/dL (7-18) H Creatinine 1.1 MG/DL (0.55-1.30) Estimat Glomerular Filtration Rate > 60 mL/min (>60) Glucose Level 140 MG/DL (74-106) H Calcium Level 9.0 MG/DL (8.5-10.1) Phosphorus Level 2.9 MG/DL (2.5-4.9) Magnesium Level 2.2 MG/DL (1.8-2.4) Total Bilirubin 0.2 MG/DL (0.2-1.0) Aspartate Amino Transf (AST/SGOT) 31 U/L (15-37) Alanine Aminotransferase (ALT/SGPT) 29 U/L (12-78) Alkaline Phosphatase 63 U/L (46-116) C-Reactive Protein, Quantitative 3.9 mg/dL (0.00-0.90) H Total Protein 7.3 G/DL (6.4-8.2) Albumin 3.7 G/DL (3.4-5.0) Globulin 3.6 g/dL Albumin/Globulin Ratio 1.0 (1.0-2.7) Microbiology Date/Time Source Procedure Growth Status 02/26/18 17:31 Blood Blood Culture - Preliminary NO GROWTH AFTER 24 HOURS Resulted 02/26/18 17:25 Blood Blood Culture - Preliminary NO GROWTH AFTER 24 HOURS Resulted 02/28/18 03:20 Nasopharynx Influenza Types A,B Antigen (OLIVIA) - Final Complete 02/26/18 17:50 Urine,Clean Catch Urine Culture - Preliminary Mixed Gram Positive Organism Resulted Emir Garvin M.D. February 28, 2018 23:07
--- NOTE | 2018-02-28 23:15 | Cardiology Report ---
APPROVED REPORT EKG Measurement Heart [id number] Sinus tachycardia Otherwise normal ECG
[2018-02-28] MEDS: DiphenhydrAMINE 25mg/10ml Elixir ORAL PRN (23:53)
[2018-03-01 03:55] VITALS: BP 116/49
[2018-03-01 07:48] VITALS: BP 173/85
[2018-03-01 08:00] VITALS: BP 161/79
[2018-03-01] MEDS: LORazepam 1mg tab ORAL SCH ×3 (08:02→17:52)
[2018-03-01] MEDS: Heparin 5000 units/ml inj SUBQ SCH ×2 (08:03→20:53)
[2018-03-01] MEDS: Sertraline 100mg tab ORAL SCH (08:24)
[2018-03-01] MEDS: BuPROPion XL 150mg tab ORAL SCH (08:24)
[2018-03-01] MEDS: Morphine Sulfate 4mg/ml Inj IVP PRN ×4 (10:59→23:52)
--- NOTE | 2018-03-01 11:03 | Infectious Diseases Prog Note ---
Assessment/Plan Assessment/Plan Assessment: Bronchitis- -CXR: Minimal subsegmental atelectasis in the lung bases. The lungs otherwise appear clear. -influenza sc neg -sp cx normal flroa to date Low grade fever/mild leukocytosis, improving -u/a wbc 15-20, nit neg, leuk +2; ucx <10K mixed gram positive growth (not clinically significant) HTN COPD CHF chronic neck pain s/p fusion tobacco abuse Plan: -Continue PO Levaquin abx d#4/5 -02/27 SP IV Vanco #2 and Cefepime #1 -02/26 Ceftriaxone and Levaquin x1 -f/u cx -Monitor CBC/BMP, temperatures -aspiration precautions Thank you for this consultation. Will continue to follow along with you. Discussed with RN. Subjective Allergies: Coded Allergies: No Known Allergies (Verified , 03/28/07) Subjective afebrile in >48hrs at RA Bcx NTD mild leukocytosis;; stasble sp cx normal luz so far Objective Vital Signs Last 24 Hour Vital Signs Date Time Temp Pulse Resp B/P (MAP) Pulse Ox O2 Delivery O2 Flow Rate FiO2 03/01/18 10:59 97.7 03/01/18 08:02 173/85 03/01/18 08:00 97.7 86 24 161/79 97 97.7 03/01/18 07:50 94 20 Room Air 21 03/01/18 07:48 98.0 94 20 173/85 94 Room Air 98.0 03/01/18 03:55 96.4 75 20 116/49 94 Room Air 96.4 03/01/18 00:36 161/89 02/28/18 23:42 98.1 94 20 161/89 98 Room Air 98.1 02/28/18 19:26 97.9 90 20 149/88 96 Room Air 97.9 02/28/18 16:00 98.2 81 20 163/81 96 Room Air 98.2 02/28/18 16:00 75 02/28/18 12:00 80 02/28/18 12:00 97.7 81 20 147/77 99 Nasal Cannula 2.0 97.7 Height (Feet): 5 Height (Inches): 5.00 Weight (Pounds): 180 Objective General Appearance: well appearing, mild distress HEENT: normocephalic bilateral eye PERRL, moist mucus membranes Neck: supple Respiratory: wheezing, expiration, inspiration Cardiovascular : no edema, no JVD, tachycardia Gastrointestinal: normal inspection, normal bowel sounds, non tender, no mass, non-distended Musculoskeletal: back normal, gait/station normal, normal range of motion Neurologic: alert, oriented x3, motor strength/tone normal, grossly normal Skin: normal inspection, warm/dry Microbiology Date/Time Source Procedure Growth Status 02/26/18 17:31 Blood Blood Culture - Preliminary NO GROWTH AFTER 48 HOURS Resulted 02/26/18 17:25 Blood Blood Culture - Preliminary NO GROWTH AFTER 48 HOURS Resulted 02/28/18 03:20 Nasopharynx Influenza Types A,B Antigen (OLIVIA) - Final Complete 02/28/18 03:10 Sputum Expectorated Gram Stain Pending Resulted 02/28/18 03:10 Sputum Expectorated Sputum Culture - Preliminary NORMAL UPPER RESPIRATORY LUZ AT 24 ... Resulted 02/27/18 03:14 Nasal Nares MRSA Culture - Final NO METHICILLIN RESISTANT STAPH AUREUS... Complete 02/26/18 17:50 Urine,Clean Catch Urine Culture - Final Mixed Gram Positive Organism Complete 02/27/18 03:14 Rectum VRE Culture - Final NO VANCOMYCIN RESISTANT ENTEROCOCCUS ... Complete Current Medications Medications (Trade) Dose Ordered Sig/Star Route PRN Reason Start Time Stop Time Status Last Admin Dose Admin Acetaminophen (Tylenol) 650 mg Q4H PRN ORAL FEVER (Temp>100.4F) 02/28/18 17:30 03/28/18 21:29 Albuterol/ Ipratropium (Albuterol/ Ipratropium) 3 ml EVERY 4 HOURS PRN HHN Shortness of Breath 02/28/18 17:00 03/03/18 21:29 Bupropion HCl (Wellbutrin XL) 150 mg DAILY ORAL 03/01/18 09:00 03/29/18 08:59 03/01/18 08:24 Clonidine HCl (Catapres Tab) 0.1 mg Q6H PRN ORAL for SBP > 160 02/28/18 17:00 03/30/18 16:59 03/01/18 08:02 Dextrose (Dextrose 50%) 25 ml STAT PRN IV BS 60-69mg/dl 02/28/18 17:00 03/28/18 16:59 Dextrose (Dextrose 50%) 50 ml STAT PRN IV BS less than 60mg/dl 02/28/18 17:00 03/28/18 16:59 Diphenhydramine HCl (Benadryl) 15 mg BEDTIME PRN ORAL SLEEP 02/28/18 21:00 03/29/18 23:29 02/28/18 23:53 Heparin Sodium (Porcine) (Heparin 5000 units/ml) 5,000 units EVERY 12 HOURS SUBQ 02/28/18 21:00 03/29/18 08:59 03/01/18 08:03 Ibuprofen (Motrin) 600 mg TIDPRN PRN ORAL Mild Pain (Pain Scale 1-3) 02/28/18 18:00 03/30/18 17:59 Levofloxacin (Levaquin) 500 mg DAILY@2100 ORAL 02/28/18 21:00 03/06/18 23:59 02/28/18 20:55 Lorazepam (Ativan) 1 mg THREE TIMES A DAY ORAL 02/28/18 18:00 03/06/18 17:59 03/01/18 08:02 Morphine Sulfate (Morphine Sulfate) 4 mg Q4H PRN IVP Severe Pain (Pain Scale 7-10) 02/28/18 19:00 03/06/18 14:59 03/01/18 10:59 Ondansetron HCl (Zofran) 4 mg Q6H PRN IVP Nausea & Vomiting 02/28/18 17:00 03/28/18 16:59 Polyethylene Glycol (Miralax) 17 gm DAILYPRN PRN ORAL Constipation 02/28/18 17:00 03/28/18 16:59 02/28/18 23:54 Sertraline HCl (Zoloft) 200 mg DAILY ORAL 03/01/18 09:00 03/29/18 08:59 03/01/18 08:24 Carol Ruano M.D. March 01, 2018 11:03
[2018-03-01 12:00] VITALS: BP 131/62
--- NOTE | 2018-03-01 13:37 | Cardiology Progress Note ---
Assessment/Plan Assessment/Plan 1) ACS (acute coronary syndrome) (2) Pneumonia (3) COPD (chronic obstructive pulmonary disease) (4) Costochondritis (5) Depression (6) HTN (hypertension) (7) Stenosis, spinal, lumbar (8) Anxiety Pulmonary Toilet Breathing treatments Medrol Add singulair BP control Ambulate Antibiotics Follow up cultures Avoid morphine CV stable Dispo planning Subjective Cardiovascular: Reports: no symptoms Respiratory: Reports: shortness of breath, wheezing Gastrointestinal/Abdominal: Reports: no symptoms Genitourinary: Reports: no symptoms Subjective clinically improving, wheezing improved, minimal oxygen, no distress, no acute events Objective Last 24 Hour Vital Signs Date Time Temp Pulse Resp B/P (MAP) Pulse Ox O2 Delivery O2 Flow Rate FiO2 03/01/18 12:00 98.0 92 20 131/62 96 98.0 03/01/18 11:29 98.0 03/01/18 10:59 97.7 03/01/18 08:02 173/85 03/01/18 08:00 97.7 86 24 161/79 97 97.7 03/01/18 07:50 94 20 Room Air 21 03/01/18 07:48 98.0 94 20 173/85 94 Room Air 98.0 03/01/18 03:55 96.4 75 20 116/49 94 Room Air 96.4 03/01/18 00:36 161/89 02/28/18 23:42 98.1 94 20 161/89 98 Room Air 98.1 02/28/18 19:26 97.9 90 20 149/88 96 Room Air 97.9 02/28/18 16:00 98.2 81 20 163/81 96 Room Air 98.2 02/28/18 16:00 75 General Appearance: WD/WN, no apparent distress EENT: PERRL/EOMI, normal ENT inspection Neck: non-tender, normal alignment Rhythm: NSR Cardiovascular: normal peripheral pulses, normal rate, regular rhythm Respiratory/Chest: stridor, expiratory wheezing Abdomen: normal bowel sounds Extremities: normal range of motion 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 Resulted 02/27/18 03:14 Nasal Nares MRSA Culture - Final NO METHICILLIN RESISTANT STAPH AUREUS... Complete 02/26/18 17:50 Urine,Clean Catch Urine Culture - Final Mixed Gram Positive Organism Complete 02/27/18 03:14 Rectum VRE Culture - Final NO VANCOMYCIN RESISTANT ENTEROCOCCUS ... Complete Emir Garvin M.D. March 01, 2018 13:37
--- NOTE | 2018-03-01 13:54 | Pulmonology Progress Note ---
Assessment/Plan Problems: (1) ACS (acute coronary syndrome) (2) Pneumonia (3) COPD (chronic obstructive pulmonary disease) (4) Costochondritis (5) Depression (6) HTN (hypertension) (7) Stenosis, spinal, lumbar (8) Anxiety Assessment/Plan solumedrol 60Q6 for 1 or 2 dasy on levofloxacin check sputum titrate fio2 to sat of 92% check electrolytes psych to see symptomatic treatment Subjective ROS Limited/Unobtainable: No Constitutional: Reports: no symptoms HEENT: Repors: no symptoms Allergies: Coded Allergies: No Known Allergies (Verified , 03/28/07) Objective Last 24 Hour Vital Signs Date Time Temp Pulse Resp B/P (MAP) Pulse Ox O2 Delivery O2 Flow Rate FiO2 03/01/18 12:00 98.0 92 20 131/62 96 98.0 03/01/18 11:29 98.0 03/01/18 10:59 97.7 03/01/18 08:02 173/85 03/01/18 08:00 97.7 86 24 161/79 97 97.7 03/01/18 07:50 94 20 Room Air 21 03/01/18 07:48 98.0 94 20 173/85 94 Room Air 98.0 03/01/18 03:55 96.4 75 20 116/49 94 Room Air 96.4 03/01/18 00:36 161/89 02/28/18 23:42 98.1 94 20 161/89 98 Room Air 98.1 02/28/18 19:26 97.9 90 20 149/88 96 Room Air 97.9 02/28/18 16:00 98.2 81 20 163/81 96 Room Air 98.2 02/28/18 16:00 75 Intake and Output 02/28/18 03/01/18 19:00 07:00 Intake Total 480 ml Balance 480 ml Intake Oral 480 ml # Voids 9 2 Objective anxious, General Appearance: WD/WN HEENT: normocephalic, atraumatic Respiratory/Chest: chest wall non-tender, expiratory wheezing, inspiratory wheezing Cardiovascular: normal peripheral pulses, normal rate Abdomen: no scars Extremities: no cyanosis Skin: no lesions Neurologic/Psychiatric: core dropper II-XII grossly normal, abnormal gait Microbiology Date/Time Source Procedure Growth Status 02/26/18 17:31 Blood Blood Culture - Preliminary NO GROWTH AFTER 48 HOURS Resulted 02/26/18 17:25 Blood Blood Culture - Preliminary NO GROWTH AFTER 48 HOURS Resulted 02/28/18 03:20 Nasopharynx Influenza Types A,B Antigen (OLIVIA) - Final Complete 02/28/18 03:10 Sputum Expectorated Gram Stain - Final Resulted 02/28/18 03:10 Sputum Expectorated Sputum Culture - Preliminary NORMAL UPPER RESPIRATORY FAVIAN AT 24 ... Resulted 02/27/18 03:14 Nasal Nares MRSA Culture - Final NO METHICILLIN RESISTANT STAPH AUREUS... Complete 02/26/18 17:50 Urine,Clean Catch Urine Culture - Final Mixed Gram Positive Organism Complete 02/27/18 03:14 Rectum VRE Culture - Final NO VANCOMYCIN RESISTANT ENTEROCOCCUS ... Complete Current Medications Medications (Trade) Dose Ordered Sig/Star Route PRN Reason Start Time Stop Time Status Last Admin Dose Admin Acetaminophen (Tylenol) 650 mg Q4H PRN ORAL FEVER (Temp>100.4F) 02/28/18 17:30 03/28/18 21:29 Albuterol/ Ipratropium (Albuterol/ Ipratropium) 3 ml EVERY 4 HOURS PRN HHN Shortness of Breath 02/28/18 17:00 03/03/18 21:29 Bupropion HCl (Wellbutrin XL) 150 mg DAILY ORAL 03/01/18 09:00 03/29/18 08:59 03/01/18 08:24 Clonidine HCl (Catapres Tab) 0.1 mg Q6H PRN ORAL for SBP > 160 02/28/18 17:00 03/30/18 16:59 03/01/18 08:02 Dextrose (Dextrose 50%) 25 ml STAT PRN IV BS 60-69mg/dl 02/28/18 17:00 03/28/18 16:59 Dextrose (Dextrose 50%) 50 ml STAT PRN IV BS less than 60mg/dl 02/28/18 17:00 03/28/18 16:59 Diphenhydramine HCl (Benadryl) 15 mg BEDTIME PRN ORAL SLEEP 02/28/18 21:00 03/29/18 23:29 02/28/18 23:53 Heparin Sodium (Porcine) (Heparin 5000 units/ml) 5,000 units EVERY 12 HOURS SUBQ 02/28/18 21:00 03/29/18 08:59 03/01/18 08:03 Ibuprofen (Motrin) 600 mg TIDPRN PRN ORAL Mild Pain (Pain Scale 1-3) 02/28/18 18:00 03/30/18 17:59 Levofloxacin (Levaquin) 500 mg DAILY@2100 ORAL 02/28/18 21:00 03/06/18 23:59 02/28/18 20:55 Lorazepam (Ativan) 1 mg THREE TIMES A DAY ORAL 02/28/18 18:00 03/06/18 17:59 03/01/18 12:31 Morphine Sulfate (Morphine Sulfate) 4 mg Q4H PRN IVP Severe Pain (Pain Scale 7-10) 02/28/18 19:00 03/06/18 14:59 03/01/18 10:59 Ondansetron HCl (Zofran) 4 mg Q6H PRN IVP Nausea & Vomiting 02/28/18 17:00 03/28/18 16:59 Polyethylene Glycol (Miralax) 17 gm DAILYPRN PRN ORAL Constipation 02/28/18 17:00 03/28/18 16:59 02/28/18 23:54 Sertraline HCl (Zoloft) 200 mg DAILY ORAL 03/01/18 09:00 03/29/18 08:59 03/01/18 08:24 Jonathan Cochran MD March 01, 2018 13:54
[2018-03-01] MEDS: Solu-MEDROL 125mg Inj IV SCH ×2 (14:21→18:00)
--- NOTE | 2018-03-01 15:43 | General Progress Note ---
Assessment/Plan Assessment/Plan mdd anxiety cont zoloft cont ativan Subjective Date patient seen: March 01, 2018 Neurologic/Psychiatric: Reports: anxiety, depressed, emotional problems Allergies: Coded Allergies: No Known Allergies (Verified , 03/28/07) Objective Last 24 Hour Vital Signs Date Time Temp Pulse Resp B/P (MAP) Pulse Ox O2 Delivery O2 Flow Rate FiO2 03/01/18 15:16 98.0 03/01/18 14:09 78 24 97 Nasal Cannula 4.0 36 03/01/18 14:07 Nasal Cannula 4.0 36 03/01/18 14:00 98 Nasal Cannula 4.0 36 03/01/18 13:55 83 22 98 Nasal Cannula 4.0 36 03/01/18 12:00 98.0 92 20 131/62 96 98.0 03/01/18 11:29 98.0 03/01/18 10:59 97.7 03/01/18 08:02 173/85 03/01/18 08:00 97.7 86 24 161/79 97 97.7 03/01/18 07:50 94 20 Room Air 21 03/01/18 07:48 98.0 94 20 173/85 94 Room Air 98.0 03/01/18 03:55 96.4 75 20 116/49 94 Room Air 96.4 03/01/18 00:36 161/89 02/28/18 23:42 98.1 94 20 161/89 98 Room Air 98.1 02/28/18 19:26 97.9 90 20 149/88 96 Room Air 97.9 02/28/18 16:00 98.2 81 20 163/81 96 Room Air 98.2 02/28/18 16:00 75 Intake and Output 02/28/18 03/01/18 19:00 07:00 Intake Total 480 ml Balance 480 ml Intake Oral 480 ml # Voids 9 2 Height (Feet): 5 Height (Inches): 5.00 Weight (Pounds): 180 General Appearance: WD/WN, no apparent distress, alert Neurologic: oriented x 3, responsive, depressed affect Sindy Francois M.D. March 01, 2018 15:43
[2018-03-01 16:00] VITALS: BP 108/55
[2018-03-01 20:00] VITALS: BP 150/78
[2018-03-01] MEDS: Solu-MEDROL 125mg Inj IVP SCH (20:51)
[2018-03-01] MEDS: Levofloxacin 500mg tab ORAL SCH (20:51)
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
[2018-03-01] MEDS: DiphenhydrAMINE 25mg/10ml Elixir ORAL PRN (23:52)
[2018-03-02] VITALS (7 sets, daily range): BP systolic 125–155; BP diastolic 53–94
[2018-03-02] MEDS: Solu-MEDROL 125mg Inj IVP SCH ×4 (02:00→20:53)
[2018-03-02] MEDS: Morphine Sulfate 4mg/ml Inj IVP PRN ×4 (06:40→23:10)
[2018-03-02] MEDS: LORazepam 1mg tab ORAL SCH ×3 (08:54→17:52)
[2018-03-02] MEDS: BuPROPion XL 150mg tab ORAL SCH (08:54)
[2018-03-02] MEDS: Sertraline 100mg tab ORAL SCH (08:54)
[2018-03-02] MEDS: Heparin 5000 units/ml inj SUBQ SCH ×2 (08:55→20:54)
--- NOTE | 2018-03-02 10:35 | Cardiology Progress Note ---
Assessment/Plan Status: progressing Assessment/Plan 1) ACS (acute coronary syndrome) (2) Pneumonia (3) COPD (chronic obstructive pulmonary disease) (4) Costochondritis (5) Depression (6) HTN (hypertension) (7) Stenosis, spinal, lumbar (8) Anxiety Pulmonary Toilet Breathing treatments Medrol Add singulair BP control Ambulate Antibiotics Follow up cultures Avoid morphine CV stable Dispo planning Subjective Cardiovascular: Reports: no symptoms Respiratory: Reports: wheezing Gastrointestinal/Abdominal: Reports: no symptoms Genitourinary: Reports: no symptoms Subjective clinically improving, wheezing improved, minimal oxygen, no distress, no acute events Objective Last 24 Hour Vital Signs Date Time Temp Pulse Resp B/P (MAP) Pulse Ox O2 Delivery O2 Flow Rate FiO2 03/02/18 08:00 97.2 81 20 127/65 97 Room Air 97.2 03/02/18 04:00 97.9 71 20 134/76 97 Room Air 97.9 03/02/18 00:00 97.5 79 19 154/80 98 Nasal Cannula 97.5 03/01/18 20:00 97.5 81 20 150/78 96 Nasal Cannula 97.5 03/01/18 19:19 98.0 03/01/18 19:06 97 Nasal Cannula 3.0 03/01/18 19:02 Nasal Cannula 4.0 36 03/01/18 19:02 99 Nasal Cannula 4.0 36 03/01/18 19:02 102 20 Nasal Cannula 4.0 36 03/01/18 16:00 98.0 75 20 108/55 98 98.0 03/01/18 15:46 98.0 03/01/18 15:16 98.0 03/01/18 14:09 78 24 97 Nasal Cannula 4.0 36 03/01/18 14:07 Nasal Cannula 4.0 36 03/01/18 14:00 98 Nasal Cannula 4.0 36 03/01/18 13:55 83 22 98 Nasal Cannula 4.0 36 03/01/18 12:00 98.0 92 20 131/62 96 98.0 03/01/18 10:59 97.7 General Appearance: WD/WN EENT: PERRL/EOMI Neck: non-tender Rhythm: NSR Cardiovascular: normal peripheral pulses Respiratory/Chest: expiratory wheezing Abdomen: normal bowel sounds Extremities: normal range of motion 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 Complete Emir Garvin M.D. March 02, 2018 10:35
--- NOTE | 2018-03-02 14:38 | Infectious Diseases Prog Note ---
Assessment/Plan Assessment/Plan Assessment: Bronchitis- -CXR: Minimal subsegmental atelectasis in the lung bases. The lungs otherwise appear clear. -influenza sc neg -sp cx normal luz Low grade fever/mild leukocytosis, improving -u/a wbc 15-20, nit neg, leuk +2; ucx <10K mixed gram positive growth (not clinically significant) -Bcx NTD HTN COPD CHF chronic neck pain s/p fusion tobacco abuse Plan: -Continue PO Levaquin abx d#/ -02/27 SP IV Vanco #2 and Cefepime #1 -02/26 Ceftriaxone and Levaquin x1 -f/u cx -Monitor CBC/BMP, temperatures -aspiration precautions Thank you for this consultation. Will continue to follow along with you. Discussed with RN. Subjective Allergies: Coded Allergies: No Known Allergies (Verified , 03/28/07) Subjective afebrile in >72hrs at RA Bcx NTD mild leukocytosis;; stasble sp cx normal luz Objective Vital Signs Last 24 Hour Vital Signs Date Time Temp Pulse Resp B/P (MAP) Pulse Ox O2 Delivery O2 Flow Rate FiO2 03/02/18 11:50 96.8 72 18 125/53 100 96.8 03/02/18 09:50 99 Nasal Cannula 4.0 36 03/02/18 09:50 99 20 Nasal Cannula 4.0 36 03/02/18 09:50 Nasal Cannula 4.0 36 03/02/18 08:00 97.2 81 20 127/65 97 Room Air 97.2 03/02/18 04:00 97.9 71 20 134/76 97 Room Air 97.9 03/02/18 00:00 97.5 79 19 154/80 98 Nasal Cannula 97.5 03/01/18 20:00 97.5 81 20 150/78 96 Nasal Cannula 97.5 03/01/18 19:19 98.0 03/01/18 19:06 97 Nasal Cannula 3.0 03/01/18 19:02 Nasal Cannula 4.0 36 03/01/18 19:02 99 Nasal Cannula 4.0 36 03/01/18 19:02 102 20 Nasal Cannula 4.0 36 03/01/18 16:00 98.0 75 20 108/55 98 98.0 03/01/18 15:46 98.0 03/01/18 15:16 98.0 Height (Feet): 5 Height (Inches): 5.00 Weight (Pounds): 189 Objective General Appearance: well appearing, mild distress HEENT: normocephalic bilateral eye PERRL, moist mucus membranes Neck: supple Respiratory: wheezing, expiration, inspiration Cardiovascular : no edema, no JVD, tachycardia Gastrointestinal: normal inspection, normal bowel sounds, non tender, no mass, non-distended Musculoskeletal: back normal, gait/station normal, normal range of motion Neurologic: alert, oriented x3, motor strength/tone normal, grossly normal Skin: normal inspection, warm/dry Microbiology Date/Time Source Procedure Growth Status 02/28/18 03:20 Nasopharynx Influenza Types A,B Antigen (OLIVIA) - Final Complete 02/28/18 03:10 Sputum Expectorated Gram Stain - Final Complete 02/28/18 03:10 Sputum Expectorated Sputum Culture - Final NORMAL UPPER RESPIRATORY LUZ AT 48 ... Complete Current Medications Medications (Trade) Dose Ordered Sig/Star Route PRN Reason Start Time Stop Time Status Last Admin Dose Admin Acetaminophen (Tylenol) 650 mg Q4H PRN ORAL FEVER (Temp>100.4F) 02/28/18 17:30 03/28/18 21:29 Albuterol/ Ipratropium (Albuterol/ Ipratropium) 3 ml EVERY 4 HOURS PRN HHN Shortness of Breath 02/28/18 17:00 03/03/18 21:29 03/01/18 14:01 Bupropion HCl (Wellbutrin XL) 150 mg DAILY ORAL 03/01/18 09:00 03/29/18 08:59 03/02/18 08:54 Clonidine HCl (Catapres Tab) 0.1 mg Q6H PRN ORAL for SBP > 160 02/28/18 17:00 03/30/18 16:59 03/01/18 08:02 Dextrose (Dextrose 50%) 25 ml STAT PRN IV BS 60-69mg/dl 02/28/18 17:00 03/28/18 16:59 Dextrose (Dextrose 50%) 50 ml STAT PRN IV BS less than 60mg/dl 02/28/18 17:00 03/28/18 16:59 Diphenhydramine HCl (Benadryl) 15 mg BEDTIME PRN ORAL SLEEP 02/28/18 21:00 6/26/18 23:29 03/01/18 23:52 Heparin Sodium (Porcine) (Heparin 5000 units/ml) 5,000 units EVERY 12 HOURS SUBQ 02/28/18 21:00 03/29/18 08:59 03/02/18 08:55 Ibuprofen (Motrin) 600 mg TIDPRN PRN ORAL Mild Pain (Pain Scale 1-3) 02/28/18 18:00 03/30/18 17:59 Levofloxacin (Levaquin) 500 mg DAILY@2100 ORAL 02/28/18 21:00 03/06/18 23:59 03/01/18 20:51 Lorazepam (Ativan) 1 mg THREE TIMES A DAY ORAL 02/28/18 18:00 03/06/18 17:59 03/02/18 13:25 Methylprednisolone Sodium Succinate (Solu-MEDROL) 60 mg Q6H IVP 03/01/18 20:00 03/31/18 19:59 03/02/18 13:25 Morphine Sulfate (Morphine Sulfate) 4 mg Q4H PRN IVP Severe Pain (Pain Scale 7-10) 02/28/18 19:00 03/06/18 14:59 03/02/18 12:29 Ondansetron HCl (Zofran) 4 mg Q6H PRN IVP Nausea & Vomiting 02/28/18 17:00 03/28/18 16:59 Polyethylene Glycol (Miralax) 17 gm DAILYPRN PRN ORAL Constipation 02/28/18 17:00 03/28/18 16:59 02/28/18 23:54 Sertraline HCl (Zoloft) 200 mg DAILY ORAL 03/01/18 09:00 03/29/18 08:59 03/02/18 08:54 Carol Ruano M.D. March 02, 2018 14:38
--- NOTE | 2018-03-02 14:54 | Pulmonology Progress Note ---
Assessment/Plan Problems: (1) Pneumonia (2) ACS (acute coronary syndrome) (3) COPD (chronic obstructive pulmonary disease) (4) Costochondritis (5) Depression (6) HTN (hypertension) (7) Stenosis, spinal, lumbar (8) Anxiety Assessment/Plan taper solumedrol on levofloxacin check sputum titrate fio2 to sat of 92% check electrolytes psych to see symptomatic treatment Subjective ROS Limited/Unobtainable: No Interval Events: still coughing and wheezing Allergies: Coded Allergies: No Known Allergies (Verified , 03/28/07) Objective Last 24 Hour Vital Signs Date Time Temp Pulse Resp B/P (MAP) Pulse Ox O2 Delivery O2 Flow Rate FiO2 03/02/18 11:50 96.8 72 18 125/53 100 96.8 03/02/18 09:50 99 Nasal Cannula 4.0 36 03/02/18 09:50 99 20 Nasal Cannula 4.0 36 03/02/18 09:50 Nasal Cannula 4.0 36 03/02/18 08:00 97.2 81 20 127/65 97 Room Air 97.2 03/02/18 04:00 97.9 71 20 134/76 97 Room Air 97.9 03/02/18 00:00 97.5 79 19 154/80 98 Nasal Cannula 97.5 03/01/18 20:00 97.5 81 20 150/78 96 Nasal Cannula 97.5 03/01/18 19:19 98.0 03/01/18 19:06 97 Nasal Cannula 3.0 03/01/18 19:02 Nasal Cannula 4.0 36 03/01/18 19:02 99 Nasal Cannula 4.0 36 03/01/18 19:02 102 20 Nasal Cannula 4.0 36 03/01/18 16:00 98.0 75 20 108/55 98 98.0 03/01/18 15:46 98.0 03/01/18 15:16 98.0 Intake and Output 03/01/18 03/02/18 19:00 07:00 Intake Total 300 ml 400 ml Balance 300 ml 400 ml Intake Oral 300 ml 400 ml # Voids 2 1 Objective anxious, General Appearance: WD/WN HEENT: normocephalic, anicteric Respiratory/Chest: chest wall non-tender, accessory muscle use, crackles/rales Cardiovascular: normal peripheral pulses, normal rate Abdomen: normal bowel sounds, no organomegaly Genitourinary: normal external genitalia Extremities: no clubbing 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 Complete Current Medications Medications (Trade) Dose Ordered Sig/Star Route PRN Reason Start Time Stop Time Status Last Admin Dose Admin Acetaminophen (Tylenol) 650 mg Q4H PRN ORAL FEVER (Temp>100.4F) 02/28/18 17:30 03/28/18 21:29 Albuterol/ Ipratropium (Albuterol/ Ipratropium) 3 ml EVERY 4 HOURS PRN HHN Shortness of Breath 02/28/18 17:00 03/03/18 21:29 03/01/18 14:01 Bupropion HCl (Wellbutrin XL) 150 mg DAILY ORAL 03/01/18 09:00 03/29/18 08:59 03/02/18 08:54 Clonidine HCl (Catapres Tab) 0.1 mg Q6H PRN ORAL for SBP > 160 02/28/18 17:00 03/30/18 16:59 03/01/18 08:02 Dextrose (Dextrose 50%) 25 ml STAT PRN IV BS 60-69mg/dl 02/28/18 17:00 03/28/18 16:59 Dextrose (Dextrose 50%) 50 ml STAT PRN IV BS less than 60mg/dl 02/28/18 17:00 03/28/18 16:59 Diphenhydramine HCl (Benadryl) 15 mg BEDTIME PRN ORAL SLEEP 02/28/18 21:00 03/29/18 23:29 03/01/18 23:52 Heparin Sodium (Porcine) (Heparin 5000 units/ml) 5,000 units EVERY 12 HOURS SUBQ 02/28/18 21:00 03/29/18 08:59 03/02/18 08:55 Ibuprofen (Motrin) 600 mg TIDPRN PRN ORAL Mild Pain (Pain Scale 1-3) 02/28/18 18:00 03/30/18 17:59 Levofloxacin (Levaquin) 500 mg DAILY@2100 ORAL 02/28/18 21:00 03/06/18 23:59 03/01/18 20:51 Lorazepam (Ativan) 1 mg THREE TIMES A DAY ORAL 02/28/18 18:00 03/06/18 17:59 03/02/18 13:25 Methylprednisolone Sodium Succinate (Solu-MEDROL) 60 mg Q6H IVP 03/01/18 20:00 03/31/18 19:59 03/02/18 13:25 Morphine Sulfate (Morphine Sulfate) 4 mg Q4H PRN IVP Severe Pain (Pain Scale 7-10) 02/28/18 19:00 03/06/18 14:59 03/02/18 12:29 Ondansetron HCl (Zofran) 4 mg Q6H PRN IVP Nausea & Vomiting 02/28/18 17:00 03/28/18 16:59 Polyethylene Glycol (Miralax) 17 gm DAILYPRN PRN ORAL Constipation 02/28/18 17:00 03/28/18 16:59 02/28/18 23:54 Sertraline HCl (Zoloft) 200 mg DAILY ORAL 03/01/18 09:00 03/29/18 08:59 03/02/18 08:54 Jonathan Cochran MD March 02, 2018 14:54
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
--- NOTE | 2018-03-02 20:07 | Geriatric Progress Note ---
Assessment/Plan Problems: (1) COPD (chronic obstructive pulmonary disease) (2) Anxiety (3) Cervical spondylosis (4) HTN (hypertension) (5) Cervical radiculopathy (6) Costochondritis (7) COPD exacerbation (8) Hypercholesteremia (9) History of fusion of cervical spine Assessment/Plan Objuectively, patient's acute COPD exacerbation seems to be improving, but she continues to be quite anxious and somatic. Discussed entire situation in detail with patient, including issues of opioid and benzodiazepine use. She agreed to attempt a taper. Consideration might also be given to using Cymbalta as an adjunct, if OK with Dr. Francois, either in addition or as a substitute for buproprion and/or sertraline. Will ask P.T. to mobilize and monitor O2 sats. Continue other tx as ordered. Discussed with: patient, hospital staff Subjective Interval Events Asked to assume primary care of patient, at patient's request. Currently appears anxious, and somatic. No specific c/o otherwise except for pain with cough and sensation of shortness of breath. Steroids tapered. Patient currently using morphine IV q4 and Ativan tid, she is also asking for prn respiratory treatments. Constitutional: Reports: pain - with cough Respiratory: Reports: shortness of breath Gastrointestinal/Abdominal: Denies: abdominal pain Musculoskeletal: Reports: back pain Mood/Memory: Reports: anxiety Sleep: Reports: doesn't sleep well Geriatric Geriatric Last 24 Hour Vital Signs Date Time Temp Pulse Resp B/P (MAP) Pulse Ox O2 Delivery O2 Flow Rate FiO2 03/02/18 19:54 Nasal Cannula 3.0 32 03/02/18 19:54 91 20 Nasal Cannula 3.0 32 03/02/18 19:54 98 Nasal Cannula 3.0 32 03/02/18 15:52 96.9 87 18 155/72 94 96.9 03/02/18 11:50 96.8 72 18 125/53 100 96.8 03/02/18 09:50 99 Nasal Cannula 4.0 36 03/02/18 09:50 99 20 Nasal Cannula 4.0 36 03/02/18 09:50 Nasal Cannula 4.0 36 03/02/18 08:00 97.2 81 20 127/65 97 Room Air 97.2 03/02/18 04:00 97.9 71 20 134/76 97 Room Air 97.9 5/30/18 00:00 97.5 79 19 154/80 98 Nasal Cannula 97.5 03/01/18 20:00 97.5 81 20 150/78 96 Nasal Cannula 97.5 Intake and Output 03/01/18 03/02/18 19:00 07:00 Intake Total 300 ml 400 ml Balance 300 ml 400 ml Intake Oral 300 ml 400 ml # Voids 2 1 Current Medications Medications (Trade) Dose Ordered Sig/Star Route PRN Reason Start Time Stop Time Status Last Admin Dose Admin Acetaminophen (Tylenol) 650 mg Q4H PRN ORAL FEVER (Temp>100.4F) 02/28/18 17:30 03/28/18 21:29 Acetaminophen (Tylenol) 650 mg Q4H PRN ORAL Mild Pain/Temp > 100.5 03/02/18 19:30 04/01/18 19:29 UNV Acetaminophen/ Hydrocodone Bitart ([place] 10/325) 1 tab EVERY 6 HOURS PRN ORAL Pain Scale (4-6) 03/02/18 19:30 03/09/18 19:29 UNV Albuterol/ Ipratropium (Albuterol/ Ipratropium) 3 ml EVERY 4 HOURS PRN HHN Shortness of Breath 02/28/18 17:00 03/03/18 21:29 03/01/18 14:01 Bupropion HCl (Wellbutrin XL) 150 mg DAILY ORAL 03/01/18 09:00 03/29/18 08:59 03/02/18 08:54 Clonidine HCl (Catapres Tab) 0.1 mg Q6H PRN ORAL for SBP > 160 02/28/18 17:00 03/30/18 16:59 03/01/18 08:02 Dextrose (Dextrose 50%) 25 ml STAT PRN IV BS 60-69mg/dl 02/28/18 17:00 03/28/18 16:59 Dextrose (Dextrose 50%) 50 ml STAT PRN IV BS less than 60mg/dl 02/28/18 17:00 03/28/18 16:59 Diphenhydramine HCl (Benadryl) 15 mg BEDTIME PRN ORAL SLEEP 02/28/18 21:00 03/29/18 23:29 03/01/18 23:52 Heparin Sodium (Porcine) (Heparin 5000 units/ml) 5,000 units EVERY 12 HOURS SUBQ 02/28/18 21:00 03/29/18 08:59 03/02/18 08:55 Ibuprofen (Motrin) 600 mg TIDPRN PRN ORAL Mild Pain (Pain Scale 1-3) 02/28/18 18:00 03/30/18 17:59 Levofloxacin (Levaquin) 500 mg DAILY@2100 ORAL 02/28/18 21:00 03/06/18 23:59 03/01/18 20:51 Lorazepam (Ativan) 0.5 mg EVERY 6 HOURS PRN ORAL For Anxiety 03/02/18 20:00 03/06/18 17:59 UNV Methylprednisolone Sodium Succinate (Solu-MEDROL) 60 mg EVERY 12 HOURS IVP 03/02/18 21:00 03/31/18 19:59 Morphine Sulfate (Morphine Sulfate) 2 mg Q4H PRN IVP Severe Pain (Pain Scale 7-10) 03/02/18 23:00 03/06/18 14:59 UNV Ondansetron HCl (Zofran) 4 mg Q6H PRN IVP Nausea & Vomiting 02/28/18 17:00 03/28/18 16:59 Polyethylene Glycol (Miralax) 17 gm DAILYPRN PRN ORAL Constipation 02/28/18 17:00 03/28/18 16:59 02/28/18 23:54 Sertraline HCl (Zoloft) 200 mg DAILY ORAL 03/01/18 09:00 03/29/18 08:59 03/02/18 08:54 Height (Feet): 5 Height (Inches): 5.00 Weight (Pounds): 189 General Appearance: alert, other - anxious, slightly hyperverbal Head: normocephalic, atraumatic Eyes: bilateral anicteric ENT: normal voice - speaking in complete sentences without distress Neck: no mass Respiratory: no wheezing, other - slightly improved air movement Cardiovascular: regular rate, rhythm Gastrointestinal: normal bowel sounds, non tender, soft, no mass, no organomegaly, non-distended Musculoskeletal: no calf tenderness Edema: no edema noted Generalized Neurologic: no new focality CRISTA SHARPE March 02, 2018 20:07
[2018-03-02] MEDS: Levofloxacin 500mg tab ORAL SCH (20:53)
[2018-03-02] MEDS: DiphenhydrAMINE 25mg/10ml Elixir ORAL PRN (23:13)
--- NOTE | 2018-03-02 23:14 | General Progress Note ---
Assessment/Plan Assessment/Plan mdd anxiety cont zoloft cont ativan Subjective Date patient seen: March 02, 2018 Neurologic/Psychiatric: Reports: anxiety, depressed, emotional problems Allergies: Coded Allergies: No Known Allergies (Verified , 03/28/07) Objective Last 24 Hour Vital Signs Date Time Temp Pulse Resp B/P (MAP) Pulse Ox O2 Delivery O2 Flow Rate FiO2 03/02/18 23:10 96.9 03/02/18 19:54 Nasal Cannula 3.0 32 03/02/18 19:54 91 20 Nasal Cannula 3.0 32 03/02/18 19:54 98 Nasal Cannula 3.0 32 03/02/18 15:52 96.9 87 18 155/72 94 96.9 03/02/18 11:50 96.8 72 18 125/53 100 96.8 03/02/18 09:50 99 Nasal Cannula 4.0 36 03/02/18 09:50 99 20 Nasal Cannula 4.0 36 03/02/18 09:50 Nasal Cannula 4.0 36 03/02/18 08:00 97.2 81 20 127/65 97 Room Air 97.2 03/02/18 04:00 97.9 71 20 134/76 97 Room Air 97.9 03/02/18 00:00 97.5 79 19 154/80 98 Nasal Cannula 97.5 Intake and Output 03/01/18 03/02/18 19:00 07:00 Intake Total 300 ml 400 ml Balance 300 ml 400 ml Intake Oral 300 ml 400 ml # Voids 2 1 Height (Feet): 5 Height (Inches): 5.00 Weight (Pounds): 189 Sindy Francois M.D. March 02, 2018 23:14
[2018-03-03 04:00] VITALS: BP 158/89
[2018-03-03] MEDS: Morphine Sulfate 4mg/ml Inj IVP PRN (04:28)
[2018-03-03 08:00] VITALS: BP 150/88
[2018-03-03] MEDS: Sertraline 100mg tab ORAL SCH (08:12)
[2018-03-03] MEDS: BuPROPion XL 150mg tab ORAL SCH (08:12)
[2018-03-03] MEDS: Solu-MEDROL 125mg Inj IVP SCH ×2 (08:12→20:27)
[2018-03-03] MEDS: Heparin 5000 units/ml inj SUBQ SCH ×2 (08:13→20:36)
[2018-03-03] MEDS: HYDROcodone/Acetamin 10/325 tab ORAL PRN ×3 (08:50→20:29)
[2018-03-03] MEDS: LORazepam 1mg tab ORAL PRN ×2 (08:51→15:00)
--- NOTE | 2018-03-03 11:24 | Cardiology Progress Note ---
Assessment/Plan Assessment/Plan 1) ACS (acute coronary syndrome) (2) Pneumonia (3) COPD (chronic obstructive pulmonary disease) (4) Costochondritis (5) Depression (6) HTN (hypertension) (7) Stenosis, spinal, lumbar (8) Anxiety Pulmonary Toilet Breathing treatments Medrol Add singulair BP control Ambulate Antibiotics Follow up cultures Avoid morphine CV stable Dispo planning - patient appears anxious about discharge Recommend rehab Subjective Cardiovascular: Reports: no symptoms Respiratory: Reports: SOB at rest, wheezing Gastrointestinal/Abdominal: Reports: no symptoms Genitourinary: Reports: no symptoms Subjective clinically improving, wheezing improved, minimal oxygen, no distress, no acute events Objective Last 24 Hour Vital Signs Date Time Temp Pulse Resp B/P (MAP) Pulse Ox O2 Delivery O2 Flow Rate FiO2 03/03/18 08:00 97.7 91 20 150/88 97 97.7 03/03/18 04:58 98.2 03/03/18 04:28 98.2 03/03/18 04:00 97.8 78 18 158/89 97 Nasal Cannula 3.0 97.8 03/02/18 23:54 98.2 84 18 153/94 99 Nasal Cannula 3.0 98.2 03/02/18 23:10 96.9 03/02/18 20:00 98.2 97 18 148/92 98 Nasal Cannula 3.0 98.2 03/02/18 19:54 Nasal Cannula 3.0 32 03/02/18 19:54 91 20 Nasal Cannula 3.0 32 03/02/18 19:54 98 Nasal Cannula 3.0 32 03/02/18 15:52 96.9 87 18 155/72 94 96.9 03/02/18 11:50 96.8 72 18 125/53 100 96.8 General Appearance: WD/WN EENT: PERRL/EOMI Neck: non-tender Rhythm: NSR Cardiovascular: normal peripheral pulses Respiratory/Chest: expiratory wheezing Abdomen: normal bowel sounds Extremities: normal range of motion 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 March 03, 2018 11:23
[2018-03-03 11:35] VITALS: BP 154/83
--- NOTE | 2018-03-03 14:31 | Pulmonology Progress Note ---
Assessment/Plan Problems: (1) Pneumonia (2) ACS (acute coronary syndrome) (3) COPD (chronic obstructive pulmonary disease) (4) Costochondritis (5) Depression (6) HTN (hypertension) (7) Stenosis, spinal, lumbar (8) Anxiety Assessment/Plan taper solumedrol check sputum titrate fio2 to sat of 92% check electrolytes psych to see symptomatic treatment on oral narcotics wants to go to a correction where she can get "whole body" therapy Subjective ROS Limited/Unobtainable: No Interval Events: still coughing and wheezing Allergies: Coded Allergies: No Known Allergies (Verified , 03/28/07) Objective Last 24 Hour Vital Signs Date Time Temp Pulse Resp B/P (MAP) Pulse Ox O2 Delivery O2 Flow Rate FiO2 03/03/18 11:35 97.7 71 18 154/83 98 97.7 03/03/18 08:00 97.7 91 20 150/88 97 97.7 03/03/18 04:58 98.2 03/03/18 04:28 98.2 03/03/18 04:00 97.8 78 18 158/89 97 Nasal Cannula 3.0 97.8 03/02/18 23:54 98.2 84 18 153/94 99 Nasal Cannula 3.0 98.2 03/02/18 23:10 96.9 03/02/18 20:00 98.2 97 18 148/92 98 Nasal Cannula 3.0 98.2 03/02/18 19:54 Nasal Cannula 3.0 32 03/02/18 19:54 91 20 Nasal Cannula 3.0 32 03/02/18 19:54 98 Nasal Cannula 3.0 32 03/02/18 15:52 96.9 87 18 155/72 94 96.9 Intake and Output 03/02/18 03/03/18 19:00 07:00 Intake Total 730 ml 340 ml Balance 730 ml 340 ml Intake Oral 730 ml 340 ml # Voids 4 3 Objective anxious, General Appearance: WD/WN, no apparent distress, lethargic Lines, tubes and drains: peripheral HEENT: normocephalic, atraumatic, anicteric, mucous membranes moist Neck: non-tender, normal alignment, supple Respiratory/Chest: chest wall non-tender, + wheezing, rhonchi Cardiovascular/Chest: normal peripheral pulses, normal rate, regular rhythm, regularly irregular Abdomen: normal bowel sounds, non tender, soft, no organomegaly, no mass Genitourinary/Rectal: normal genital exam Extremities: normal range of motion, non-tender, normal inspection, no calf tenderness, normal capillary refill Skin Exam: normal pigmentation 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 Physical Exam Narrative General Appearance: WD/WN HEENT: normocephalic, atraumatic Respiratory/Chest: chest wall non-tender, lungs clear Breasts: no masses Cardiovascular: normal peripheral pulses, normal rate Abdomen: normal bowel sounds, soft, non tender Genitourinary: normal external genitalia Extremities: no cyanosis Current Medications Medications (Trade) Dose Ordered Sig/Star Route PRN Reason Start Time Stop Time Status Last Admin Dose Admin Acetaminophen (Tylenol) 650 mg Q4H PRN ORAL FEVER (Temp>100.4F) 02/28/18 17:30 03/28/18 21:29 Acetaminophen (Tylenol) 650 mg Q4H PRN ORAL Mild Pain/Temp > 100.5 03/02/18 19:30 04/01/18 19:29 Acetaminophen/ Hydrocodone Bitart ([place] 10/325) 1 tab EVERY 6 HOURS PRN ORAL Pain Scale (4-6) 03/02/18 19:30 03/09/18 19:29 03/03/18 08:50 Albuterol/ Ipratropium (Albuterol/ Ipratropium) 3 ml EVERY 4 HOURS PRN HHN Shortness of Breath 02/28/18 17:00 03/03/18 21:29 03/01/18 14:01 Bupropion HCl (Wellbutrin XL) 150 mg DAILY ORAL 03/01/18 09:00 03/29/18 08:59 03/03/18 08:12 Clonidine HCl (Catapres Tab) 0.1 mg Q6H PRN ORAL for SBP > 160 02/28/18 17:00 03/30/18 16:59 03/01/18 08:02 Dextrose (Dextrose 50%) 25 ml STAT PRN IV BS 60-69mg/dl 02/28/18 17:00 03/28/18 16:59 Dextrose (Dextrose 50%) 50 ml STAT PRN IV BS less than 60mg/dl 02/28/18 17:00 03/28/18 16:59 Diphenhydramine HCl (Benadryl) 15 mg BEDTIME PRN ORAL SLEEP 02/28/18 21:00 03/29/18 23:29 03/02/18 23:13 Heparin Sodium (Porcine) (Heparin 5000 units/ml) 5,000 units EVERY 12 HOURS SUBQ 02/28/18 21:00 03/29/18 08:59 03/03/18 08:13 Ibuprofen (Motrin) 600 mg TIDPRN PRN ORAL Mild Pain (Pain Scale 1-3) 02/28/18 18:00 03/30/18 17:59 Levofloxacin (Levaquin) 500 mg DAILY@2100 ORAL 02/28/18 21:00 03/06/18 23:59 03/02/18 20:53 Lorazepam (Ativan) 0.5 mg EVERY 6 HOURS PRN ORAL For Anxiety 03/02/18 20:00 03/06/18 17:59 03/03/18 08:51 Methylprednisolone Sodium Succinate (Solu-MEDROL) 60 mg EVERY 12 HOURS IVP 03/02/18 21:00 03/31/18 19:59 03/03/18 08:12 Morphine Sulfate (Morphine Sulfate) 2 mg Q4H PRN IVP Severe Pain (Pain Scale 7-10) 03/02/18 23:00 03/06/18 14:59 03/03/18 04:28 Ondansetron HCl (Zofran) 4 mg Q6H PRN IVP Nausea & Vomiting 02/28/18 17:00 03/28/18 16:59 Polyethylene Glycol (Miralax) 17 gm DAILYPRN PRN ORAL Constipation 02/28/18 17:00 03/28/18 16:59 02/28/18 23:54 Sertraline HCl (Zoloft) 200 mg DAILY ORAL 03/01/18 09:00 03/29/18 08:59 03/03/18 08:12 Jonathan Cochran MD March 03, 2018 14:31
[2018-03-03 15:45] VITALS: BP 153/90
--- NOTE | 2018-03-03 16:01 | Infectious Diseases Prog Note ---
Assessment/Plan Assessment/Plan Assessment: Bronchitis- -CXR: Minimal subsegmental atelectasis in the lung bases. The lungs otherwise appear clear. -influenza sc neg -sp cx normal luz Low grade fever/mild leukocytosis, fever resolved -u/a wbc 15-20, nit neg, leuk +2; ucx <10K mixed gram positive growth (not clinically significant) -Bcx NTD HTN COPD CHF chronic neck pain s/p fusion tobacco abuse Plan: -Continue to monitor off abx -03/02 SP Levaquin abx d#02/05 -02/27 SP IV Vanco #2 and Cefepime #1 -02/26 Ceftriaxone and Levaquin x1 -f/u cx -Monitor CBC/BMP, temperatures -aspiration precautions -CBC, CXR am Thank you for this consultation. Will continue to follow along with you. Discussed with RN. Subjective Allergies: Coded Allergies: No Known Allergies (Verified , 03/28/07) Subjective afebrile Bcx NTD no cbc today sp cx normal luz Objective Vital Signs Last 24 Hour Vital Signs Date Time Temp Pulse Resp B/P (MAP) Pulse Ox O2 Delivery O2 Flow Rate FiO2 03/03/18 15:45 97.9 100 18 153/90 95 97.9 03/03/18 11:35 97.7 71 18 154/83 98 97.7 03/03/18 08:00 97.7 91 20 150/88 97 97.7 03/03/18 04:58 98.2 03/03/18 04:28 98.2 03/03/18 04:00 97.8 78 18 158/89 97 Nasal Cannula 3.0 97.8 03/02/18 23:54 98.2 84 18 153/94 99 Nasal Cannula 3.0 98.2 03/02/18 23:10 96.9 03/02/18 20:00 98.2 97 18 148/92 98 Nasal Cannula 3.0 98.2 03/02/18 19:54 Nasal Cannula 3.0 32 03/02/18 19:54 91 20 Nasal Cannula 3.0 32 03/02/18 19:54 98 Nasal Cannula 3.0 32 Height (Feet): 5 Height (Inches): 5.00 Weight (Pounds): 189 Objective General Appearance: well appearing, mild distress HEENT: normocephalic bilateral eye PERRL, moist mucus membranes Neck: supple Respiratory: wheezing, expiration, inspiration Cardiovascular : no edema, no JVD, tachycardia Gastrointestinal: normal inspection, normal bowel sounds, non tender, no mass, non-distended Musculoskeletal: back normal, gait/station normal, normal range of motion Neurologic: alert, oriented x3, motor strength/tone normal, grossly normal Skin: normal inspection, warm/dry Current Medications Medications (Trade) Dose Ordered Sig/Star Route PRN Reason Start Time Stop Time Status Last Admin Dose Admin Acetaminophen (Tylenol) 650 mg Q4H PRN ORAL FEVER (Temp>100.4F) 02/28/18 17:30 03/28/18 21:29 Acetaminophen (Tylenol) 650 mg Q4H PRN ORAL Mild Pain/Temp > 100.5 03/02/18 19:30 04/01/18 19:29 Acetaminophen/ Hydrocodone Bitart ([place] 10/325) 1 tab EVERY 6 HOURS PRN ORAL Pain Scale (4-6) 03/02/18 19:30 03/09/18 19:29 03/03/18 14:59 Albuterol/ Ipratropium (Albuterol/ Ipratropium) 3 ml EVERY 4 HOURS PRN HHN Shortness of Breath 02/28/18 17:00 03/03/18 21:29 03/01/18 14:01 Bupropion HCl (Wellbutrin XL) 150 mg DAILY ORAL 03/01/18 09:00 03/29/18 08:59 03/03/18 08:12 Clonidine HCl (Catapres Tab) 0.1 mg Q6H PRN ORAL for SBP > 160 02/28/18 17:00 03/30/18 16:59 03/01/18 08:02 Dextrose (Dextrose 50%) 25 ml STAT PRN IV BS 60-69mg/dl 02/28/18 17:00 03/28/18 16:59 Dextrose (Dextrose 50%) 50 ml STAT PRN IV BS less than 60mg/dl 02/28/18 17:00 03/28/18 16:59 Diphenhydramine HCl (Benadryl) 15 mg BEDTIME PRN ORAL SLEEP 02/28/18 21:00 03/29/18 23:29 03/02/18 23:13 Heparin Sodium (Porcine) (Heparin 5000 units/ml) 5,000 units EVERY 12 HOURS SUBQ 02/28/18 21:00 03/29/18 08:59 03/03/18 08:13 Ibuprofen (Motrin) 600 mg TIDPRN PRN ORAL Mild Pain (Pain Scale 1-3) 02/28/18 18:00 03/30/18 17:59 Levofloxacin (Levaquin) 500 mg DAILY@2100 ORAL 02/28/18 21:00 03/03/18 20:59 03/02/18 20:53 Lorazepam (Ativan) 0.5 mg EVERY 6 HOURS PRN ORAL For Anxiety 03/02/18 20:00 03/06/18 17:59 03/03/18 15:00 Methylprednisolone Sodium Succinate (Solu-MEDROL) 60 mg EVERY 12 HOURS IVP 03/02/18 21:00 03/31/18 19:59 03/03/18 08:12 Morphine Sulfate (Morphine Sulfate) 2 mg Q4H PRN IVP Severe Pain (Pain Scale 7-10) 03/02/18 23:00 03/06/18 14:59 03/03/18 04:28 Ondansetron HCl (Zofran) 4 mg Q6H PRN IVP Nausea & Vomiting 02/28/18 17:00 03/28/18 16:59 Polyethylene Glycol (Miralax) 17 gm DAILYPRN PRN ORAL Constipation 02/28/18 17:00 03/28/18 16:59 02/28/18 23:54 Sertraline HCl (Zoloft) 200 mg DAILY ORAL 03/01/18 09:00 03/29/18 08:59 03/03/18 08:12 Carol Ruano M.D. March 03, 2018 16:01
--- NOTE | 2018-03-03 17:30 | General Progress Note ---
Assessment/Plan Status: stable, progressing Assessment/Plan mdd anxiety cont zoloft cont ativan Subjective Date patient seen: March 03, 2018 Neurologic/Psychiatric: Reports: anxiety, depressed, emotional problems Allergies: Coded Allergies: No Known Allergies (Verified , 03/28/07) Objective Last 24 Hour Vital Signs Date Time Temp Pulse Resp B/P (MAP) Pulse Ox O2 Delivery O2 Flow Rate FiO2 03/03/18 15:45 97.9 100 18 153/90 95 97.9 03/03/18 11:35 97.7 71 18 154/83 98 97.7 03/03/18 08:00 97.7 91 20 150/88 97 97.7 03/03/18 04:58 98.2 03/03/18 04:28 98.2 03/03/18 04:00 97.8 78 18 158/89 97 Nasal Cannula 3.0 97.8 03/02/18 23:54 98.2 84 18 153/94 99 Nasal Cannula 3.0 98.2 03/02/18 23:10 96.9 03/02/18 20:00 98.2 97 18 148/92 98 Nasal Cannula 3.0 98.2 03/02/18 19:54 Nasal Cannula 3.0 32 03/02/18 19:54 91 20 Nasal Cannula 3.0 32 03/02/18 19:54 98 Nasal Cannula 3.0 32 Intake and Output 03/02/18 03/03/18 19:00 07:00 Intake Total 730 ml 340 ml Balance 730 ml 340 ml Intake Oral 730 ml 340 ml # Voids 4 3 Height (Feet): 5 Height (Inches): 5.00 Weight (Pounds): 189 General Appearance: no apparent distress, alert Neurologic: oriented x 3, responsive, depressed affect Sindy Francois M.D. March 03, 2018 17:30
--- NOTE | 2018-03-03 17:57 | Geriatric Progress Note ---
Assessment/Plan Problems: (1) COPD (chronic obstructive pulmonary disease) (2) Anxiety (3) Cervical spondylosis (4) HTN (hypertension) (5) Cervical radiculopathy (6) Costochondritis (7) COPD exacerbation (8) Hypercholesteremia (9) History of fusion of cervical spine Assessment/Plan COPD continues to slowly improve. Taper steroids per pulmonology. Pain adequately controlled, but may be experiencing some mild withdrawal type sxs. Has not used any prn IV MS, will decrease dosing, increase dosing of [place] to q4. Placed on clonazepam by Dr. Francois, will not increase frequency of Xanax. Encourage patient to continue to mobilize. Patient reporting that she wishes to consider d/c to [facility] on for SNF Rehab post hospitalization. Notify d/c planning, although patient likely needs to be off IV steroids before d/c. Recheck labs. Continue other tx. Discussed with: hospital staff Subjective Interval Events Patient reports her breathing is slightly better, but is having some sweating and discomfort associated with switching to p.o. medications. Per staff has not been using any IV meds. Ambulated with P.T. with some fatigue but tolerated 200'. Intake OK. Geriatric Geriatric Last 24 Hour Vital Signs Date Time Temp Pulse Resp B/P (MAP) Pulse Ox O2 Delivery O2 Flow Rate FiO2 03/03/18 15:45 97.9 100 18 153/90 95 97.9 03/03/18 11:35 97.7 71 18 154/83 98 97.7 03/03/18 08:28 Nasal Cannula 3.0 32 03/03/18 08:27 99 Nasal Cannula 3.0 32 03/03/18 08:26 91 18 Nasal Cannula 3.0 32 03/03/18 08:00 97.7 91 20 150/88 97 97.7 03/03/18 04:58 98.2 03/03/18 04:28 98.2 03/03/18 04:00 97.8 78 18 158/89 97 Nasal Cannula 3.0 97.8 03/02/18 23:54 98.2 84 18 153/94 99 Nasal Cannula 3.0 98.2 03/02/18 23:10 96.9 03/02/18 20:00 98.2 97 18 148/92 98 Nasal Cannula 3.0 98.2 03/02/18 19:54 Nasal Cannula 3.0 32 03/02/18 19:54 91 20 Nasal Cannula 3.0 32 03/02/18 19:54 98 Nasal Cannula 3.0 32 Intake and Output 03/02/18 03/03/18 19:00 07:00 Intake Total 730 ml 340 ml Balance 730 ml 340 ml Intake Oral 730 ml 340 ml # Voids 4 3 Current Medications Medications (Trade) Dose Ordered Sig/Star Route PRN Reason Start Time Stop Time Status Last Admin Dose Admin Acetaminophen (Tylenol) 650 mg Q4H PRN ORAL FEVER (Temp>100.4F) 02/28/18 17:30 03/28/18 21:29 Acetaminophen (Tylenol) 650 mg Q4H PRN ORAL Mild Pain/Temp > 100.5 03/02/18 19:30 04/01/18 19:29 Acetaminophen/ Hydrocodone Bitart ([place] 10/325) 1 tab EVERY 6 HOURS PRN ORAL Pain Scale (4-6) 03/02/18 19:30 03/09/18 19:29 03/03/18 14:59 Albuterol/ Ipratropium (Albuterol/ Ipratropium) 3 ml EVERY 4 HOURS PRN HHN Shortness of Breath 02/28/18 17:00 03/03/18 21:29 03/01/18 14:01 Bupropion HCl (Wellbutrin XL) 150 mg DAILY ORAL 03/01/18 09:00 03/29/18 08:59 03/03/18 08:12 Clonazepam (KlonoPIN) 1 mg BEDTIME ORAL 03/03/18 21:00 03/10/18 20:59 Clonidine HCl (Catapres Tab) 0.1 mg Q6H PRN ORAL for SBP > 160 02/28/18 17:00 03/30/18 16:59 03/01/18 08:02 Dextrose (Dextrose 50%) 25 ml STAT PRN IV BS 60-69mg/dl 02/28/18 17:00 03/28/18 16:59 Dextrose (Dextrose 50%) 50 ml STAT PRN IV BS less than 60mg/dl 02/28/18 17:00 03/28/18 16:59 Diphenhydramine HCl (Benadryl) 15 mg BEDTIME PRN ORAL SLEEP 02/28/18 21:00 03/29/18 23:29 03/02/18 23:13 Heparin Sodium (Porcine) (Heparin 5000 units/ml) 5,000 units EVERY 12 HOURS SUBQ 02/28/18 21:00 03/29/18 08:59 03/03/18 08:13 Ibuprofen (Motrin) 600 mg TIDPRN PRN ORAL Mild Pain (Pain Scale 1-3) 02/28/18 18:00 03/30/18 17:59 Lorazepam (Ativan) 0.5 mg EVERY 6 HOURS PRN ORAL For Anxiety 03/02/18 20:00 03/06/18 17:59 03/03/18 15:00 Methylprednisolone Sodium Succinate (Solu-MEDROL) 60 mg EVERY 12 HOURS IVP 03/02/18 21:00 03/31/18 19:59 03/03/18 08:12 Morphine Sulfate (Morphine Sulfate) 2 mg Q4H PRN IVP Severe Pain (Pain Scale 7-10) 03/02/18 23:00 03/06/18 14:59 03/03/18 04:28 Ondansetron HCl (Zofran) 4 mg Q6H PRN IVP Nausea & Vomiting 02/28/18 17:00 03/28/18 16:59 Polyethylene Glycol (Miralax) 17 gm DAILYPRN PRN ORAL Constipation 02/28/18 17:00 03/28/18 16:59 02/28/18 23:54 Sertraline HCl (Zoloft) 200 mg DAILY ORAL 03/01/18 09:00 03/29/18 08:59 03/03/18 08:12 Height (Feet): 5 Height (Inches): 5.00 Weight (Pounds): 189 General Appearance: alert, other - slightly restless Head: normocephalic, atraumatic Eyes: bilateral anicteric ENT: normal voice Neck: no mass Respiratory: decreased breath sounds, wheezing - occasional end expiratory Cardiovascular: regular rate, rhythm Gastrointestinal: normal bowel sounds, non tender, soft, no mass, no organomegaly Musculoskeletal: no calf tenderness Edema: no edema noted Generalized Neurologic: no new focality CRISTA SHARPE March 03, 2018 17:57
[2018-03-03] MEDS ORDERED: Morphine Sulfate 4mg/ml Inj IVP PRN (19:00)
[2018-03-03 20:00] VITALS: BP 149/95
[2018-03-04] VITALS: BP 163/81
[2018-03-04] MEDS: DiphenhydrAMINE 25mg/10ml Elixir ORAL PRN (00:04)
[2018-03-04 04:00] VITALS: BP 164/97
[2018-03-04] MEDS: HYDROcodone/Acetamin 10/325 tab ORAL PRN ×2 (05:01→10:58)
[2018-03-04 08:00] VITALS: BP 159/73
[2018-03-04 08:10] LABS: HEMATOCRIT 38.3 % (37.0-47.0); HEMOGLOBIN 12.6 G/DL (12.0-16.0); MEAN CORPUSCULAR VOLUME 88 FL (80-99); PLATELET COUNT 189 K/UL (150-450); RED BLOOD COUNT 4.34 M/UL (4.20-5.40); RED CELL DISTRIBUTION WIDTH 13.6 % (11.6-14.8)
[2018-03-04 08:32] LABS: ANION GAP 7 mmol/L (5-15); BLOOD UREA NITROGEN 21 mg/dL (7-18); CALCIUM 9.1 MG/DL (8.5-10.1); CARBON DIOXIDE 31 MMOL/L (21-32); CHLORIDE 101 MMOL/L (98-107); CREATININE 0.8 MG/DL (0.55-1.30); SODIUM 139 MMOL/L (136-145)
[2018-03-04] MEDS: BuPROPion XL 150mg tab ORAL SCH (09:29)
[2018-03-04] MEDS: LORazepam 1mg tab ORAL PRN ×2 (09:29→17:33)
[2018-03-04] MEDS: Sertraline 100mg tab ORAL SCH (09:29)
[2018-03-04] MEDS: Heparin 5000 units/ml inj SUBQ SCH ×2 (09:31→20:25)
[2018-03-04] MEDS: Solu-MEDROL 125mg Inj IVP SCH (09:34)
--- NOTE | 2018-03-04 11:49 | Geriatric Progress Note ---
Assessment/Plan Problems: (1) COPD (chronic obstructive pulmonary disease) (2) Anxiety (3) Cervical spondylosis (4) HTN (hypertension) (5) Cervical radiculopathy (6) Costochondritis (7) COPD exacerbation (8) Hypercholesteremia (9) History of fusion of cervical spine Assessment/Plan Leukocytosis, likely due to steroids not active infection. Monitor for infectious sxs, recheck labs. Anxiety decreased on clonazepam. Analgesia sufficient, taper. Steroid management per Dr. Cochran. Bp borderline, monitor. D/c planning pending. Discussed with: patient, hospital staff Subjective Interval Events Patient lying comfortably in bed without overt distress. Expresses some disagreement with staff assessment of pain level, but seems to be tolerating [place] as primary analgesic. Will change prn [place] to alternating 10 and 5. Reports not sleeping well despite clonazepam, but quite calm, today. Asked Dr. Cochran to evaluate for transition to p.o. steroids to facilitate discharge. Wbc up to 17K, likely steroid effect, no other evidence of active infection. Monitor, including recheck labs. CXR done, results pending. Discussed d/c planning with patient, await facility response. Eating well. Dietary recs reviewed, given current steroid dose, assessment re glucose intolerance not likely helpful until outpatient equilibrium reached. Also patient unlikely candidate for compliance with dietary restrictions. Need to stabilize patient on appropriate analgesic regimen and off tobacco before addition psychological burden of dietary restrictions. Constitutional: Reports: pain Respiratory: Reports: shortness of breath Cardiovascular: Reports: chest pain Gastrointestinal/Abdominal: Denies: abdominal pain Genitourinary: Denies: dysuria Musculoskeletal: Reports: back pain Sleep: Reports: doesn't sleep well Geriatric Geriatric Last 24 Hour Vital Signs Date Time Temp Pulse Resp B/P (MAP) Pulse Ox O2 Delivery O2 Flow Rate FiO2 03/04/18 10:58 96.4 03/04/18 08:22 Nasal Cannula 3.0 32 03/04/18 08:22 98 Nasal Cannula 3.0 32 03/04/18 08:22 80 18 Nasal Cannula 3.0 32 03/04/18 08:00 96.4 78 18 159/73 99 96.4 03/04/18 06:10 97.5 03/04/18 05:01 97.5 03/04/18 05:01 164/97 03/04/18 04:00 97 Nasal Cannula 3.0 03/04/18 04:00 97.5 70 19 164/97 97 97.5 03/04/18 00:00 98.1 78 19 163/81 79 98.1 03/04/18 00:00 97 Nasal Cannula 3.0 03/03/18 21:34 Nasal Cannula 3.0 32 03/03/18 21:34 83 18 Nasal Cannula 3.0 32 03/03/18 21:34 97 Nasal Cannula 3.0 32 03/03/18 20:29 97.9 03/03/18 20:00 98.1 83 18 149/95 96 98.1 03/03/18 20:00 96 Nasal Cannula 3.0 03/03/18 15:45 97.9 100 18 153/90 95 97.9 Intake and Output 03/03/18 03/04/18 19:00 07:00 Intake Total 480 ml Balance 480 ml Intake Oral 480 ml # Voids 3 4 # Bowel Movements 3 Laboratory Tests Test 03/04/18 06:53 03/04/18 07:30 Sodium Level 139 MMOL/L (136-145) Potassium Level 4.0 MMOL/L (3.5-5.1) Chloride Level 101 MMOL/L (98-107) Carbon Dioxide Level 31 MMOL/L (21-32) Anion Gap 7 mmol/L (5-15) Blood Urea Nitrogen 21 mg/dL (7-18) H Creatinine 0.8 MG/DL (0.55-1.30) Estimat Glomerular Filtration Rate > 60 mL/min (>60) Glucose Level 165 MG/DL (74-106) H Calcium Level 9.1 MG/DL (8.5-10.1) White Blood Count 17.0 K/UL (4.8-10.8) H Red Blood Count 4.34 M/UL (4.20-5.40) Hemoglobin 12.6 G/DL (12.0-16.0) Hematocrit 38.3 % (37.0-47.0) Mean Corpuscular Volume 88 FL (80-99) Mean Corpuscular Hemoglobin 28.9 PG (27.0-31.0) Mean Corpuscular Hemoglobin Concent 32.8 G/DL (32.0-36.0) Red Cell Distribution Width 13.6 % (11.6-14.8) Platelet Count 189 K/UL (150-450) Mean Platelet Volume 8.1 FL (6.5-10.1) Neutrophils (%) (Auto) % (45.0-75.0) Lymphocytes (%) (Auto) % (20.0-45.0) Monocytes (%) (Auto) % (1.0-10.0) Eosinophils (%) (Auto) % (0.0-3.0) Basophils (%) (Auto) % (0.0-2.0) Differential Total Cells Counted 100 Neutrophils % (Manual) 88 % (45-75) H Lymphocytes % (Manual) 7 % (20-45) L Monocytes % (Manual) 3 % (1-10) Eosinophils % (Manual) 0 % (0-3) Basophils % (Manual) 0 % (0-2) Band Neutrophils 2 % (0-8) Platelet Estimate Adequate Platelet Morphology Normal Hypochromasia 1+ Current Medications Medications (Trade) Dose Ordered Sig/Star Route PRN Reason Start Time Stop Time Status Last Admin Dose Admin Acetaminophen (Tylenol) 650 mg Q4H PRN ORAL FEVER (Temp>100.4F) 02/28/18 17:30 03/28/18 21:29 Acetaminophen (Tylenol) 650 mg Q4H PRN ORAL Mild Pain/Temp > 100.5 03/02/18 19:30 04/01/18 19:29 Acetaminophen/ Hydrocodone Bitart ([place] 10/325) 1 tab Q4H PRN ORAL Pain Scale (4-6) 03/03/18 18:30 03/10/18 18:29 03/04/18 10:58 Bupropion HCl (Wellbutrin XL) 150 mg DAILY ORAL 03/01/18 09:00 03/29/18 08:59 03/04/18 09:29 Clonazepam (KlonoPIN) 1 mg BEDTIME ORAL 03/03/18 21:00 03/10/18 20:59 03/03/18 20:29 Clonidine HCl (Catapres Tab) 0.1 mg Q6H PRN ORAL for SBP > 160 02/28/18 17:00 03/30/18 16:59 03/04/18 05:01 Dextrose (Dextrose 50%) 25 ml STAT PRN IV BS 60-69mg/dl 02/28/18 17:00 03/28/18 16:59 Dextrose (Dextrose 50%) 50 ml STAT PRN IV BS less than 60mg/dl 02/28/18 17:00 03/28/18 16:59 Diphenhydramine HCl (Benadryl) 15 mg BEDTIME PRN ORAL SLEEP 02/28/18 21:00 03/29/18 23:29 03/04/18 00:04 Guaifenesin (Robitussin) 200 mg Q4H PRN ORAL For Cough 03/03/18 18:45 04/02/18 18:44 Heparin Sodium (Porcine) (Heparin 5000 units/ml) 5,000 units EVERY 12 HOURS SUBQ 02/28/18 21:00 03/29/18 08:59 03/04/18 09:31 Ibuprofen (Motrin) 600 mg TIDPRN PRN ORAL Mild Pain (Pain Scale 1-3) 02/28/18 18:00 03/30/18 17:59 Lorazepam (Ativan) 0.5 mg EVERY 6 HOURS PRN ORAL For Anxiety 03/02/18 20:00 03/06/18 17:59 03/04/18 09:29 Methylprednisolone Sodium Succinate (Solu-MEDROL) 60 mg EVERY 12 HOURS IVP 03/02/18 21:00 03/31/18 19:59 03/04/18 09:34 Morphine Sulfate (Morphine Sulfate) 1 mg Q4H PRN IVP Severe Pain (Pain Scale 7-10) 03/03/18 19:00 03/06/18 14:59 Ondansetron HCl (Zofran) 4 mg Q6H PRN IVP Nausea & Vomiting 02/28/18 17:00 03/28/18 16:59 Polyethylene Glycol (Miralax) 17 gm DAILYPRN PRN ORAL Constipation 02/28/18 17:00 03/28/18 16:59 02/28/18 23:54 Sertraline HCl (Zoloft) 200 mg DAILY ORAL 03/01/18 09:00 03/29/18 08:59 03/04/18 09:29 Height (Feet): 5 Height (Inches): 5.00 Weight (Pounds): 189 General Appearance: no apparent distress, alert, non-toxic Head: normocephalic, atraumatic Eyes: bilateral anicteric ENT: normal voice Neck: no mass Respiratory: no wheezing, decreased breath sounds Cardiovascular: regular rate, rhythm Gastrointestinal: normal bowel sounds, non tender, soft, no mass, no organomegaly, non-distended Musculoskeletal: no calf tenderness Edema: no edema noted Generalized Neurologic: no new focality CRISTA SHARPE Mar 04, 2018 11:49
--- NOTE | 2018-03-04 11:54 | General Progress Note ---
Assessment/Plan Assessment/Plan mdd anxiety cont Zoloft cont increase Ativan Klonopin 1mg qhs Subjective Date patient seen: Mar 04, 2018 Neurologic/Psychiatric: Reports: anxiety, depressed Allergies: Coded Allergies: No Known Allergies (Verified , 03/28/07) Subjective her bp is up today Objective Last 24 Hour Vital Signs Date Time Temp Pulse Resp B/P (MAP) Pulse Ox O2 Delivery O2 Flow Rate FiO2 03/04/18 10:58 96.4 03/04/18 08:22 Nasal Cannula 3.0 32 03/04/18 08:22 98 Nasal Cannula 3.0 32 03/04/18 08:22 80 18 Nasal Cannula 3.0 32 03/04/18 08:00 96.4 78 18 159/73 99 96.4 03/04/18 06:10 97.5 03/04/18 05:01 97.5 03/04/18 05:01 164/97 03/04/18 04:00 97 Nasal Cannula 3.0 03/04/18 04:00 97.5 70 19 164/97 97 97.5 03/04/18 00:00 98.1 78 19 163/81 79 98.1 03/04/18 00:00 97 Nasal Cannula 3.0 03/03/18 21:34 Nasal Cannula 3.0 32 03/03/18 21:34 83 18 Nasal Cannula 3.0 32 03/03/18 21:34 97 Nasal Cannula 3.0 32 03/03/18 20:29 97.9 03/03/18 20:00 98.1 83 18 149/95 96 98.1 03/03/18 20:00 96 Nasal Cannula 3.0 03/03/18 15:45 97.9 100 18 153/90 95 97.9 Intake and Output 03/03/18 03/04/18 19:00 07:00 Intake Total 480 ml Balance 480 ml Intake Oral 480 ml # Voids 3 4 # Bowel Movements 3 Laboratory Tests 03/04/18 06:53: Sodium Level 139, Potassium Level 4.0, Chloride Level 101, Carbon Dioxide Level 31, Anion Gap 7, Blood Urea Nitrogen 21H, Creatinine 0.8, Estimat Glomerular Filtration Rate > 60, Glucose Level 165H, Calcium Level 9.1 03/04/18 07:30: White Blood Count 17.0H, Red Blood Count 4.34, Hemoglobin 12.6, Hematocrit 38.3 , Mean Corpuscular Volume 88, Mean Corpuscular Hemoglobin 28.9, Mean Corpuscular Hemoglobin Concent 32.8, Red Cell Distribution Width 13.6, Platelet Count 189, Mean Platelet Volume 8.1, Neutrophils (%) (Auto) , Lymphocytes (%) ( Auto) , Monocytes (%) (Auto) , Eosinophils (%) (Auto) , Basophils (%) (Auto) , Differential Total Cells Counted 100, Neutrophils % (Manual) 88H, Lymphocytes % (Manual) 7L, Monocytes % (Manual) 3, Eosinophils % (Manual) 0, Basophils % ( Manual) 0, Band Neutrophils 2, Platelet Estimate Adequate, Platelet Morphology Normal, Hypochromasia 1+ Height (Feet): 5 Height (Inches): 5.00 Weight (Pounds): 189 General Appearance: WD/WN, no apparent distress, alert Neurologic: oriented x 3, responsive, depressed affect Sindy Francois M.D. Mar 04, 2018 11:54
[2018-03-04 12:00] VITALS: BP 186/78
[2018-03-04] MEDS ORDERED: HYDROcodone/Acetamin 10/325 tab ORAL PRN (12:00)
[2018-03-04] MEDS ORDERED: Norco 5mg/325mg tab ORAL PRN (12:00)
--- NOTE | 2018-03-04 14:05 | Cardiology Progress Note ---
Assessment/Plan Assessment/Plan 1) ACS (acute coronary syndrome) (2) Pneumonia (3) COPD (chronic obstructive pulmonary disease) (4) Costochondritis (5) Depression (6) HTN (hypertension) (7) Stenosis, spinal, lumbar (8) Anxiety Pulmonary Toilet Breathing treatments Medrol PO Singulair BP control - losartan HCTZ 50/12.5 Outpatient stress test Dispo planning Subjective Cardiovascular: Reports: no symptoms Respiratory: Reports: shortness of breath, wheezing Gastrointestinal/Abdominal: Reports: no symptoms Genitourinary: Reports: no symptoms Subjective clinically improving, wheezing improved, minimal oxygen, no distress, no acute events Objective Last 24 Hour Vital Signs Date Time Temp Pulse Resp B/P (MAP) Pulse Ox O2 Delivery O2 Flow Rate FiO2 03/04/18 12:26 186/78 03/04/18 12:00 97.7 70 18 186/78 96 97.7 03/04/18 10:58 96.4 03/04/18 08:22 Nasal Cannula 3.0 32 03/04/18 08:22 98 Nasal Cannula 3.0 32 03/04/18 08:22 80 18 Nasal Cannula 3.0 32 03/04/18 08:00 96.4 78 18 159/73 99 96.4 03/04/18 06:10 97.5 03/04/18 05:01 97.5 03/04/18 05:01 164/97 03/04/18 04:00 97 Nasal Cannula 3.0 03/04/18 04:00 97.5 70 19 164/97 97 97.5 03/04/18 00:00 98.1 78 19 163/81 79 98.1 03/04/18 00:00 97 Nasal Cannula 3.0 03/03/18 21:34 Nasal Cannula 3.0 32 03/03/18 21:34 83 18 Nasal Cannula 3.0 32 03/03/18 21:34 97 Nasal Cannula 3.0 32 03/03/18 20:29 97.9 03/03/18 20:00 98.1 83 18 149/95 96 98.1 03/03/18 20:00 96 Nasal Cannula 3.0 03/03/18 15:45 97.9 100 18 153/90 95 97.9 General Appearance: no apparent distress EENT: PERRL/EOMI Neck: non-tender Rhythm: NSR Cardiovascular: normal peripheral pulses Respiratory/Chest: chest wall non-tender Abdomen: normal bowel sounds Extremities: normal range of motion Intake and Output 03/03/18 03/04/18 19:00 07:00 Intake Total 480 ml Balance 480 ml Intake Oral 480 ml # Voids 3 4 # Bowel Movements 3 Laboratory Tests Test 03/04/18 06:53 03/04/18 07:30 Sodium Level 139 MMOL/L (136-145) Potassium Level 4.0 MMOL/L (3.5-5.1) Chloride Level 101 MMOL/L (98-107) Carbon Dioxide Level 31 MMOL/L (21-32) Anion Gap 7 mmol/L (5-15) Blood Urea Nitrogen 21 mg/dL (7-18) H Creatinine 0.8 MG/DL (0.55-1.30) Estimat Glomerular Filtration Rate > 60 mL/min (>60) Glucose Level 165 MG/DL (74-106) H Calcium Level 9.1 MG/DL (8.5-10.1) White Blood Count 17.0 K/UL (4.8-10.8) H Red Blood Count 4.34 M/UL (4.20-5.40) Hemoglobin 12.6 G/DL (12.0-16.0) Hematocrit 38.3 % (37.0-47.0) Mean Corpuscular Volume 88 FL (80-99) Mean Corpuscular Hemoglobin 28.9 PG (27.0-31.0) Mean Corpuscular Hemoglobin Concent 32.8 G/DL (32.0-36.0) Red Cell Distribution Width 13.6 % (11.6-14.8) Platelet Count 189 K/UL (150-450) Mean Platelet Volume 8.1 FL (6.5-10.1) Neutrophils (%) (Auto) % (45.0-75.0) Lymphocytes (%) (Auto) % (20.0-45.0) Monocytes (%) (Auto) % (1.0-10.0) Eosinophils (%) (Auto) % (0.0-3.0) Basophils (%) (Auto) % (0.0-2.0) Differential Total Cells Counted 100 Neutrophils % (Manual) 88 % (45-75) H Lymphocytes % (Manual) 7 % (20-45) L Monocytes % (Manual) 3 % (1-10) Eosinophils % (Manual) 0 % (0-3) Basophils % (Manual) 0 % (0-2) Band Neutrophils 2 % (0-8) Platelet Estimate Adequate Platelet Morphology Normal Hypochromasia 1+ Emir Garvin M.D. Mar 04, 2018 14:05
--- NOTE | 2018-03-04 14:24 | Diagnostic Imaging Report ---
Indication: Cough Comparison: 02/26/2018 2 views of the chest obtained. Findings: Cardiomediastinal silhouette and pulmonary vascularity are within normal limits for age. The diaphragmatic contour is smooth and costophrenic angles are sharp. No pleural effusions are identified. The bones are osteopenic. Cervical compression plate noted over the lower part of the cervical spine Impression: No acute disease
[2018-03-04] MEDS ORDERED: Hyzaar 12.5mg/50mg tab ORAL SCH (15:00)
[2018-03-04 16:00] VITALS: BP 157/86
[2018-03-04] MEDS: Albuterol/Ipratropium 3ml neb HHN PRN (16:22)
--- NOTE | 2018-03-04 18:25 | Infectious Diseases Prog Note ---
Assessment/Plan Assessment/Plan Assessment: Bronchitis- s/p Rx -CXR: Minimal subsegmental atelectasis in the lung bases. The lungs otherwise appear clear. -influenza sc neg -sp cx normal luz Leukocytosis (Increased)- on high dose steroids -CXR 03/04: No acute disease Low grade fever,SP -u/a wbc 15-20, nit neg, leuk +2; ucx <10K mixed gram positive growth (not clinically significant) -Bcx Neg HTN COPD CHF chronic neck pain s/p fusion tobacco abuse Plan: -Continue to monitor off abx -03/02 SP Levaquin abx d#/ -02/27 SP IV Vanco #2 and Cefepime #1 -02/26 Ceftriaxone and Levaquin x1 -f/u cx -Monitor CBC/BMP, temperatures -CBC am -Cdiff if diarrhea Thank you for this consultation. Will continue to follow along with you. Discussed with RN. Subjective Allergies: Coded Allergies: No Known Allergies (Verified , 03/28/07) Subjective afebrile Bcx Neg leukocytosis increased (on high dose steroids) Objective Vital Signs Last 24 Hour Vital Signs Date Time Temp Pulse Resp B/P (MAP) Pulse Ox O2 Delivery O2 Flow Rate FiO2 03/04/18 16:32 83 22 98 Room Air 21 03/04/18 16:22 81 20 96 Room Air 21 03/04/18 16:00 98.2 80 18 157/86 94 98.2 03/04/18 15:56 186/78 03/04/18 12:26 186/78 03/04/18 12:00 97.7 70 18 186/78 96 97.7 03/04/18 10:58 96.4 03/04/18 08:22 Nasal Cannula 3.0 32 03/04/18 08:22 98 Nasal Cannula 3.0 32 03/04/18 08:22 80 18 Nasal Cannula 3.0 32 03/04/18 08:00 96.4 78 18 159/73 99 96.4 03/04/18 06:10 97.5 03/04/18 05:01 97.5 03/04/18 05:01 164/97 03/04/18 04:00 97 Nasal Cannula 3.0 03/04/18 04:00 97.5 70 19 164/97 97 97.5 03/04/18 00:00 98.1 78 19 163/81 79 98.1 03/04/18 00:00 97 Nasal Cannula 3.0 03/03/18 21:34 Nasal Cannula 3.0 32 03/03/18 21:34 83 18 Nasal Cannula 3.0 32 03/03/18 21:34 97 Nasal Cannula 3.0 32 03/03/18 20:29 97.9 03/03/18 20:00 98.1 83 18 149/95 96 98.1 03/03/18 20:00 96 Nasal Cannula 3.0 Height (Feet): 5 Height (Inches): 5.00 Weight (Pounds): 189 Objective General Appearance: well appearing, mild distress HEENT: normocephalic bilateral eye PERRL, moist mucus membranes Neck: supple Respiratory: wheezing, expiration, inspiration Cardiovascular : no edema, no JVD, tachycardia Gastrointestinal: normal inspection, normal bowel sounds, non tender, no mass, non-distended Musculoskeletal: back normal, gait/station normal, normal range of motion Neurologic: alert, oriented x3, motor strength/tone normal, grossly normal Skin: normal inspection, warm/dry Laboratory Tests Test 03/04/18 06:53 03/04/18 07:30 Sodium Level 139 MMOL/L (136-145) Potassium Level 4.0 MMOL/L (3.5-5.1) Chloride Level 101 MMOL/L (98-107) Carbon Dioxide Level 31 MMOL/L (21-32) Anion Gap 7 mmol/L (5-15) Blood Urea Nitrogen 21 mg/dL (7-18) H Creatinine 0.8 MG/DL (0.55-1.30) Estimat Glomerular Filtration Rate > 60 mL/min (>60) Glucose Level 165 MG/DL (74-106) H Calcium Level 9.1 MG/DL (8.5-10.1) White Blood Count 17.0 K/UL (4.8-10.8) H Red Blood Count 4.34 M/UL (4.20-5.40) Hemoglobin 12.6 G/DL (12.0-16.0) Hematocrit 38.3 % (37.0-47.0) Mean Corpuscular Volume 88 FL (80-99) Mean Corpuscular Hemoglobin 28.9 PG (27.0-31.0) Mean Corpuscular Hemoglobin Concent 32.8 G/DL (32.0-36.0) Red Cell Distribution Width 13.6 % (11.6-14.8) Platelet Count 189 K/UL (150-450) Mean Platelet Volume 8.1 FL (6.5-10.1) Neutrophils (%) (Auto) % (45.0-75.0) Lymphocytes (%) (Auto) % (20.0-45.0) Monocytes (%) (Auto) % (1.0-10.0) Eosinophils (%) (Auto) % (0.0-3.0) Basophils (%) (Auto) % (0.0-2.0) Differential Total Cells Counted 100 Neutrophils % (Manual) 88 % (45-75) H Lymphocytes % (Manual) 7 % (20-45) L Monocytes % (Manual) 3 % (1-10) Eosinophils % (Manual) 0 % (0-3) Basophils % (Manual) 0 % (0-2) Band Neutrophils 2 % (0-8) Platelet Estimate Adequate Platelet Morphology Normal Hypochromasia 1+ Current Medications Medications (Trade) Dose Ordered Sig/Star Route PRN Reason Start Time Stop Time Status Last Admin Dose Admin Acetaminophen (Tylenol) 650 mg Q4H PRN ORAL FEVER (Temp>100.4F) 02/28/18 17:30 03/28/18 21:29 Acetaminophen (Tylenol) 650 mg Q4H PRN ORAL Mild Pain/Temp > 100.5 03/02/18 19:30 04/01/18 19:29 Acetaminophen/ Hydrocodone Bitart ([place] 10/325) 1 tab Q8H PRN ORAL Pain Scale (4-6) 03/04/18 12:00 03/10/18 18:29 Acetaminophen/ Hydrocodone Bitart ([place] 5/325) 1 tab Q8H PRN ORAL pain (4-6) 03/04/18 12:00 03/11/18 11:59 Albuterol/ Ipratropium (Albuterol/ Ipratropium) 3 ml Q4HRT PRN HHN Shortness of Breath 03/04/18 16:00 03/09/18 15:59 03/04/18 16:22 Bupropion HCl (Wellbutrin XL) 150 mg DAILY ORAL 03/01/18 09:00 6/26/18 08:59 03/04/18 09:29 Clonazepam (KlonoPIN) 1 mg BEDTIME ORAL 03/03/18 21:00 03/10/18 20:59 03/03/18 20:29 Clonazepam (KlonoPIN) 1 mg BEDTIME ORAL 03/04/18 21:00 03/11/18 20:59 Clonidine HCl (Catapres Tab) 0.1 mg Q6H PRN ORAL for SBP > 160 02/28/18 17:00 03/30/18 16:59 03/04/18 12:26 Dextrose (Dextrose 50%) 25 ml STAT PRN IV BS 60-69mg/dl 02/28/18 17:00 03/28/18 16:59 Dextrose (Dextrose 50%) 50 ml STAT PRN IV BS less than 60mg/dl 02/28/18 17:00 03/28/18 16:59 Diphenhydramine HCl (Benadryl) 15 mg BEDTIME PRN ORAL SLEEP 02/28/18 21:00 03/29/18 23:29 03/04/18 00:04 Guaifenesin (Robitussin) 200 mg Q4H PRN ORAL For Cough 03/03/18 18:45 04/02/18 18:44 HCTZ/Losartan Potassium (Hyzaar 50-12.5) 1 tab DAILY ORAL 03/05/18 09:00 04/04/18 08:59 Heparin Sodium (Porcine) (Heparin 5000 units/ml) 5,000 units EVERY 12 HOURS SUBQ 02/28/18 21:00 03/29/18 08:59 03/04/18 09:31 Ibuprofen (Motrin) 600 mg TIDPRN PRN ORAL Mild Pain (Pain Scale 1-3) 02/28/18 18:00 03/30/18 17:59 Lorazepam (Ativan) 2 mg Q6H PRN ORAL For Anxiety 03/04/18 12:11 03/11/18 12:10 03/04/18 17:33 Methylprednisolone Sodium Succinate (Solu-MEDROL) 60 mg DAILY IVP 03/05/18 09:00 03/31/18 19:59 Ondansetron HCl (Zofran) 4 mg Q6H PRN IVP Nausea & Vomiting 02/28/18 17:00 03/28/18 16:59 Oxycodone/ Acetaminophen (Percocet 5-325) 1 tab Q6HR PRN ORAL Severe Pain (Pain Scale 7-10) 03/04/18 12:00 03/11/18 11:59 Polyethylene Glycol (Miralax) 17 gm DAILYPRN PRN ORAL Constipation 02/28/18 17:00 03/28/18 16:59 02/28/18 23:54 Sertraline HCl (Zoloft) 200 mg DAILY ORAL 03/01/18 09:00 03/29/18 08:59 03/04/18 09:29 Carol Ruano M.D. Mar 04, 2018 18:25
[2018-03-04 20:01] VITALS: BP 136/68
--- NOTE | 2018-03-04 20:10 | Pulmonology Progress Note ---
Assessment/Plan Problems: (1) Pneumonia (2) ACS (acute coronary syndrome) (3) COPD (chronic obstructive pulmonary disease) (4) Costochondritis (5) Depression (6) HTN (hypertension) (7) Stenosis, spinal, lumbar (8) Anxiety Assessment/Plan taper solumedrol on levofloxacin check sputum sputum cultures are negative titrate fio2 to sat of 92% check electrolytes psych to see symptomatic treatment Subjective ROS Limited/Unobtainable: No Allergies: Coded Allergies: No Known Allergies (Verified , 03/28/07) Objective Last 24 Hour Vital Signs Date Time Temp Pulse Resp B/P (MAP) Pulse Ox O2 Delivery O2 Flow Rate FiO2 03/04/18 20:03 97 Nasal Cannula 2.0 28 03/04/18 20:03 Nasal Cannula 2.0 28 03/04/18 20:03 72 18 Nasal Cannula 2.0 28 03/04/18 20:01 97.5 72 18 136/68 97 Nasal Cannula 1.5 97.5 03/04/18 16:32 83 22 98 Room Air 21 03/04/18 16:22 81 20 96 Room Air 21 03/04/18 16:00 98.2 80 18 157/86 94 98.2 03/04/18 15:56 186/78 03/04/18 12:26 186/78 03/04/18 12:00 97.7 70 18 186/78 96 97.7 03/04/18 10:58 96.4 03/04/18 08:22 Nasal Cannula 3.0 32 03/04/18 08:22 98 Nasal Cannula 3.0 32 03/04/18 08:22 80 18 Nasal Cannula 3.0 32 03/04/18 08:00 96.4 78 18 159/73 99 96.4 03/04/18 06:10 97.5 03/04/18 05:01 97.5 03/04/18 05:01 164/97 03/04/18 04:00 97 Nasal Cannula 3.0 03/04/18 04:00 97.5 70 19 164/97 97 97.5 03/04/18 00:00 98.1 78 19 163/81 79 98.1 03/04/18 00:00 97 Nasal Cannula 3.0 03/03/18 21:34 Nasal Cannula 3.0 32 03/03/18 21:34 83 18 Nasal Cannula 3.0 32 5/31/18 21:34 97 Nasal Cannula 3.0 32 03/03/18 20:29 97.9 Intake and Output 03/03/18 03/04/18 19:00 07:00 Intake Total 480 ml Balance 480 ml Intake Oral 480 ml # Voids 3 4 # Bowel Movements 3 Objective General Appearance: WD/WN, no apparent distress, lethargic Lines, tubes and drains: peripheral HEENT: normocephalic, atraumatic, anicteric, mucous membranes moist Neck: non-tender, normal alignment, supple Respiratory/Chest: chest wall non-tender, less wheezing Cardiovascular/Chest: normal peripheral pulses, normal rate, regular rhythm, regularly irregular Abdomen: normal bowel sounds, non tender, soft, no organomegaly, no mass Genitourinary/Rectal: normal genital exam Extremities: normal range of motion, non-tender, normal inspection, no calf tenderness, normal capillary refill Skin Exam: normal pigmentation Neurologic: reports developer II-XII grossly normal Physical Exam Narrative General Appearance: WD/WN HEENT: normocephalic, atraumatic Respiratory/Chest: chest wall non-tender, lungs clear Breasts: no masses Cardiovascular: normal peripheral pulses, normal rate Abdomen: normal bowel sounds, soft, non tender Genitourinary: normal external genitalia Extremities: no cyanosis Laboratory Tests 03/04/18 06:53: Sodium Level 139, Potassium Level 4.0, Chloride Level 101, Carbon Dioxide Level 31, Anion Gap 7, Blood Urea Nitrogen 21H, Creatinine 0.8, Estimat Glomerular Filtration Rate > 60, Glucose Level 165H, Calcium Level 9.1 03/04/18 07:30: White Blood Count 17.0H, Red Blood Count 4.34, Hemoglobin 12.6, Hematocrit 38.3 , Mean Corpuscular Volume 88, Mean Corpuscular Hemoglobin 28.9, Mean Corpuscular Hemoglobin Concent 32.8, Red Cell Distribution Width 13.6, Platelet Count 189, Mean Platelet Volume 8.1, Neutrophils (%) (Auto) , Lymphocytes (%) ( Auto) , Monocytes (%) (Auto) , Eosinophils (%) (Auto) , Basophils (%) (Auto) , Differential Total Cells Counted 100, Neutrophils % (Manual) 88H, Lymphocytes % (Manual) 7L, Monocytes % (Manual) 3, Eosinophils % (Manual) 0, Basophils % ( Manual) 0, Band Neutrophils 2, Platelet Estimate Adequate, Platelet Morphology Normal, Hypochromasia 1+ Current Medications Medications (Trade) Dose Ordered Sig/Star Route PRN Reason Start Time Stop Time Status Last Admin Dose Admin Acetaminophen (Tylenol) 650 mg Q4H PRN ORAL FEVER (Temp>100.4F) 02/28/18 17:30 03/28/18 21:29 Acetaminophen (Tylenol) 650 mg Q4H PRN ORAL Mild Pain/Temp > 100.5 03/02/18 19:30 04/01/18 19:29 Acetaminophen/ Hydrocodone Bitart ([place] 10/325) 1 tab Q8H PRN ORAL Pain Scale (4-6) 03/04/18 12:00 03/10/18 18:29 Acetaminophen/ Hydrocodone Bitart ([place] 5/325) 1 tab Q8H PRN ORAL pain (4-6) 03/04/18 12:00 03/11/18 11:59 Albuterol/ Ipratropium (Albuterol/ Ipratropium) 3 ml Q4HRT PRN HHN Shortness of Breath 03/04/18 16:00 03/09/18 15:59 03/04/18 16:22 Bupropion HCl (Wellbutrin XL) 150 mg DAILY ORAL 03/01/18 09:00 03/29/18 08:59 03/04/18 09:29 Clonazepam (KlonoPIN) 1 mg BEDTIME ORAL 03/03/18 21:00 03/10/18 20:59 03/03/18 20:29 Clonazepam (KlonoPIN) 1 mg BEDTIME ORAL 03/04/18 21:00 03/11/18 20:59 Clonidine HCl (Catapres Tab) 0.1 mg Q6H PRN ORAL for SBP > 160 02/28/18 17:00 03/30/18 16:59 03/04/18 12:26 Dextrose (Dextrose 50%) 25 ml STAT PRN IV BS 60-69mg/dl 02/28/18 17:00 03/28/18 16:59 Dextrose (Dextrose 50%) 50 ml STAT PRN IV BS less than 60mg/dl 02/28/18 17:00 03/28/18 16:59 Diphenhydramine HCl (Benadryl) 15 mg BEDTIME PRN ORAL SLEEP 02/28/18 21:00 03/29/18 23:29 03/04/18 00:04 Guaifenesin (Robitussin) 200 mg Q4H PRN ORAL For Cough 03/03/18 18:45 04/02/18 18:44 HCTZ/Losartan Potassium (Hyzaar 50-12.5) 1 tab DAILY ORAL 03/05/18 09:00 04/04/18 08:59 Heparin Sodium (Porcine) (Heparin 5000 units/ml) 5,000 units EVERY 12 HOURS SUBQ 02/28/18 21:00 03/29/18 08:59 03/04/18 09:31 Ibuprofen (Motrin) 600 mg TIDPRN PRN ORAL Mild Pain (Pain Scale 1-3) 02/28/18 18:00 03/30/18 17:59 Lorazepam (Ativan) 2 mg Q6H PRN ORAL For Anxiety 03/04/18 12:11 03/11/18 12:10 03/04/18 17:33 Methylprednisolone Sodium Succinate (Solu-MEDROL) 60 mg DAILY IVP 03/05/18 09:00 03/31/18 19:59 Ondansetron HCl (Zofran) 4 mg Q6H PRN IVP Nausea & Vomiting 02/28/18 17:00 03/28/18 16:59 Oxycodone/ Acetaminophen (Percocet 5-325) 1 tab Q6HR PRN ORAL Severe Pain (Pain Scale 7-10) 03/04/18 12:00 03/11/18 11:59 Polyethylene Glycol (Miralax) 17 gm DAILYPRN PRN ORAL Constipation 02/28/18 17:00 03/28/18 16:59 02/28/18 23:54 Sertraline HCl (Zoloft) 200 mg DAILY ORAL 03/01/18 09:00 03/29/18 08:59 03/04/18 09:29 Jonathan Cocharn MD Mar 04, 2018 20:10
[2018-03-04] MEDS: oxyCODONE HCL/Acetaminophen 5/325mg ORAL PRN (20:24)
[2018-03-04] MEDS: guaiFENesin 100mg/5ml Liq ud ORAL PRN (20:24)
[2018-03-05] VITALS (8 sets, daily range): BP systolic 121–170; BP diastolic 58–100
[2018-03-05] MEDS: LORazepam 1mg tab ORAL PRN ×4 (02:27→22:08)
[2018-03-05] MEDS: oxyCODONE HCL/Acetaminophen 5/325mg ORAL PRN ×3 (03:33→16:36)
[2018-03-05] MEDS: Sertraline 100mg tab ORAL SCH (08:31)
[2018-03-05] MEDS: BuPROPion XL 150mg tab ORAL SCH (08:31)
[2018-03-05] MEDS: Heparin 5000 units/ml inj SUBQ SCH ×2 (08:34→20:25)
[2018-03-05] MEDS ORDERED: Solu-MEDROL 40mg Inj IVP SCH (09:00)
[2018-03-05] MEDS: guaiFENesin 100mg/5ml Liq ud ORAL PRN (09:34)
[2018-03-05] MEDS: Hyzaar 12.5mg/50mg tab ORAL SCH (09:42)
--- NOTE | 2018-03-05 09:56 | Infectious Diseases Prog Note ---
Assessment/Plan Assessment/Plan Assessment: Bronchitis- s/p Rx -CXR: Minimal subsegmental atelectasis in the lung bases. The lungs otherwise appear clear. -influenza sc neg -sp cx normal luz Leukocytosis (Increased)- on high dose steroids; cbc pending -CXR 03/04: No acute disease Low grade fever,SP -u/a wbc 15-20, nit neg, leuk +2; ucx <10K mixed gram positive growth (not clinically significant) -Bcx Neg HTN COPD CHF chronic neck pain s/p fusion tobacco abuse Plan: -Continue to monitor off abx -03/02 SP Levaquin abx d#/ -02/27 SP IV Vanco #2 and Cefepime #1 -02/26 Ceftriaxone and Levaquin x1 -f/u cx -Monitor CBC/BMP, temperatures -Trend WBC -Cdiff if diarrhea Thank you for this consultation. Will continue to follow along with you. Discussed with RN. Subjective Allergies: Coded Allergies: No Known Allergies (Verified , 03/28/07) Subjective afebrile CBC pending SOB improving Objective Vital Signs Last 24 Hour Vital Signs Date Time Temp Pulse Resp B/P (MAP) Pulse Ox O2 Delivery O2 Flow Rate FiO2 03/05/18 09:42 147/69 03/05/18 08:00 98.0 87 20 170/100 98 Room Air 98.0 03/05/18 07:55 98 Nasal Cannula 2.0 28 03/05/18 07:55 Nasal Cannula 2.0 28 03/05/18 07:55 75 18 Nasal Cannula 2.0 28 03/05/18 07:49 170/100 03/05/18 04:38 Room Air 03/05/18 04:32 97.7 03/05/18 04:00 97.7 65 18 141/70 94 97.7 03/05/18 03:33 97.7 03/05/18 00:00 97.7 73 18 134/73 97 97.7 03/05/18 00:00 Room Air 03/04/18 20:24 97.5 03/04/18 20:03 97 Nasal Cannula 2.0 28 03/04/18 20:03 Nasal Cannula 2.0 28 03/04/18 20:03 72 18 Nasal Cannula 2.0 28 03/04/18 20:01 97.5 72 18 136/68 97 Nasal Cannula 1.5 97.5 03/04/18 16:32 83 22 98 Room Air 21 03/04/18 16:22 81 20 96 Room Air 21 03/04/18 16:00 98.2 80 18 157/86 94 98.2 03/04/18 15:56 186/78 03/04/18 12:26 186/78 03/04/18 12:00 97.7 70 18 186/78 96 97.7 03/04/18 10:58 96.4 Height (Feet): 5 Height (Inches): 5.00 Weight (Pounds): 189 Objective General Appearance: well appearing, mild distress HEENT: normocephalic bilateral eye PERRL, moist mucus membranes Neck: supple Respiratory: wheezing, expiration, inspiration Cardiovascular : no edema, no JVD, tachycardia Gastrointestinal: normal inspection, normal bowel sounds, non tender, no mass, non-distended Musculoskeletal: back normal, gait/station normal, normal range of motion Neurologic: alert, oriented x3, motor strength/tone normal, grossly normal Skin: normal inspection, warm/dry Current Medications Medications (Trade) Dose Ordered Sig/Star Route PRN Reason Start Time Stop Time Status Last Admin Dose Admin Acetaminophen (Tylenol) 650 mg Q4H PRN ORAL FEVER (Temp>100.4F) 02/28/18 17:30 03/28/18 21:29 Acetaminophen (Tylenol) 650 mg Q4H PRN ORAL Mild Pain/Temp > 100.5 03/02/18 19:30 04/01/18 19:29 Acetaminophen/ Hydrocodone Bitart ([place] 10/325) 1 tab Q8H PRN ORAL Pain Scale (4-6) 03/04/18 12:00 03/10/18 18:29 Acetaminophen/ Hydrocodone Bitart ([place] 5/325) 1 tab Q8H PRN ORAL pain (4-6) 03/04/18 12:00 03/11/18 11:59 Albuterol/ Ipratropium (Albuterol/ Ipratropium) 3 ml Q4HRT PRN HHN Shortness of Breath 03/04/18 16:00 03/09/18 15:59 03/04/18 16:22 Bupropion HCl (Wellbutrin XL) 150 mg DAILY ORAL 03/01/18 09:00 03/29/18 08:59 03/05/18 08:31 Clonazepam (KlonoPIN) 1 mg BEDTIME ORAL 03/04/18 21:00 03/11/18 20:59 03/04/18 21:54 Clonidine HCl (Catapres Tab) 0.1 mg Q6H PRN ORAL for SBP > 160 02/28/18 17:00 03/30/18 16:59 03/05/18 07:49 Dextrose (Dextrose 50%) 25 ml STAT PRN IV BS 60-69mg/dl 02/28/18 17:00 03/28/18 16:59 Dextrose (Dextrose 50%) 50 ml STAT PRN IV BS less than 60mg/dl 02/28/18 17:00 03/28/18 16:59 Diphenhydramine HCl (Benadryl) 15 mg BEDTIME PRN ORAL SLEEP 02/28/18 21:00 03/29/18 23:29 03/04/18 00:04 Guaifenesin (Robitussin) 200 mg Q4H PRN ORAL For Cough 03/03/18 18:45 04/02/18 18:44 03/05/18 09:34 HCTZ/Losartan Potassium (Hyzaar 50-12.5) 1 tab DAILY ORAL 03/05/18 09:00 04/04/18 08:59 03/05/18 09:42 Heparin Sodium (Porcine) (Heparin 5000 units/ml) 5,000 units EVERY 12 HOURS SUBQ 02/28/18 21:00 03/29/18 08:59 03/04/18 20:25 Ibuprofen (Motrin) 600 mg TIDPRN PRN ORAL Mild Pain (Pain Scale 1-3) 02/28/18 18:00 03/30/18 17:59 Lorazepam (Ativan) 2 mg Q6H PRN ORAL For Anxiety 03/04/18 12:11 03/11/18 12:10 03/05/18 08:30 Methylprednisolone Sodium Succinate (Solu-MEDROL) 60 mg DAILY IVP 03/05/18 09:00 03/31/18 19:59 03/05/18 08:30 Ondansetron HCl (Zofran) 4 mg Q6H PRN IVP Nausea & Vomiting 02/28/18 17:00 03/28/18 16:59 Oxycodone/ Acetaminophen (Percocet 5-325) 1 tab Q6HR PRN ORAL Severe Pain (Pain Scale 7-10) 03/04/18 12:00 03/11/18 11:59 03/05/18 09:38 Polyethylene Glycol (Miralax) 17 gm DAILYPRN PRN ORAL Constipation 02/28/18 17:00 03/28/18 16:59 02/28/18 23:54 Sertraline HCl (Zoloft) 200 mg DAILY ORAL 03/01/18 09:00 03/29/18 08:59 03/05/18 08:31 Carol Ruano M.D. Mar 05, 2018 09:56
[2018-03-05 13:44] LABS: EOSINOPHILS % (AUTO) 0.1 % (0.0-3.0); HEMATOCRIT 41.1 % (37.0-47.0); LYMPHOCYTES % (AUTO) 12.7 % (20.0-45.0); MEAN CORPUSCULAR VOLUME 90 FL (80-99); MONOCYTES % (AUTO) 5.1 % (1.0-10.0); NEUTROPHILS % (AUTO) 81.2 % (45.0-75.0); PLATELET COUNT 171 K/UL (150-450); RED BLOOD COUNT 4.58 M/UL (4.20-5.40)
[2018-03-05 13:46] LABS: ANION GAP 8 mmol/L (5-15); BLOOD UREA NITROGEN 23 mg/dL (7-18); CALCIUM 9.8 MG/DL (8.5-10.1); CARBON DIOXIDE 29 MMOL/L (21-32); CHLORIDE 98 MMOL/L (98-107); CREATININE 0.8 MG/DL (0.55-1.30); POTASSIUM 4.4 MMOL/L (3.5-5.1); SODIUM 135 MMOL/L (136-145)
--- NOTE | 2018-03-05 16:45 | Pulmonology Progress Note ---
Assessment/Plan Problems: (1) Pneumonia (2) ACS (acute coronary syndrome) (3) COPD (chronic obstructive pulmonary disease) (4) Costochondritis (5) Depression (6) HTN (hypertension) (7) Stenosis, spinal, lumbar (8) Anxiety Assessment/Plan taper solumedrol, on PO prednisone on levofloxacin check sputum sputum cultures are negative titrate fio2 to sat of 92% check electrolytes psych to see symptomatic treatment Subjective ROS Limited/Unobtainable: No Constitutional: Reports: no symptoms HEENT: Repors: no symptoms Respiratory: Reports: no symptoms Allergies: Coded Allergies: No Known Allergies (Verified , 03/28/07) Objective Last 24 Hour Vital Signs Date Time Temp Pulse Resp B/P (MAP) Pulse Ox O2 Delivery O2 Flow Rate FiO2 03/05/18 16:00 98.0 72 20 136/75 98 98.0 03/05/18 12:00 98.0 68 18 145/73 95 98.0 03/05/18 09:42 147/69 03/05/18 09:20 86 147/69 03/05/18 08:00 98.0 87 20 170/100 98 Room Air 98.0 03/05/18 07:55 98 Nasal Cannula 2.0 28 03/05/18 07:55 Nasal Cannula 2.0 28 03/05/18 07:55 75 18 Nasal Cannula 2.0 28 03/05/18 07:49 170/100 03/05/18 04:38 Room Air 03/05/18 04:32 97.7 03/05/18 04:00 97.7 65 18 141/70 94 97.7 03/05/18 03:33 97.7 03/05/18 00:00 97.7 73 18 134/73 97 97.7 03/05/18 00:00 Room Air 03/04/18 20:24 97.5 03/04/18 20:03 97 Nasal Cannula 2.0 28 03/04/18 20:03 Nasal Cannula 2.0 28 03/04/18 20:03 72 18 Nasal Cannula 2.0 28 03/04/18 20:01 97.5 72 18 136/68 97 Nasal Cannula 1.5 97.5 Intake and Output 03/04/18 03/05/18 19:00 07:00 Intake Total 620 ml 240 ml Balance 620 ml 240 ml Intake Oral 620 ml 240 ml # Voids 3 3 Objective General Appearance: WD/WN, no apparent distress, lethargic Lines, tubes and drains: peripheral HEENT: normocephalic, atraumatic, anicteric, mucous membranes moist Neck: non-tender, normal alignment, supple Respiratory/Chest: chest wall non-tender, less wheezing Cardiovascular/Chest: normal peripheral pulses, normal rate, regular rhythm, regularly irregular Abdomen: normal bowel sounds, non tender, soft, no organomegaly, no mass Genitourinary/Rectal: normal genital exam Extremities: normal range of motion, non-tender, normal inspection, no calf tenderness, normal capillary refill Skin Exam: normal pigmentation Neurologic: raw stock drier tender II-XII grossly normal Physical Exam Narrative General Appearance: WD/WN HEENT: normocephalic, atraumatic Respiratory/Chest: chest wall non-tender, lungs clear Breasts: no masses Cardiovascular: normal peripheral pulses, normal rate Abdomen: normal bowel sounds, soft, non tender Genitourinary: normal external genitalia Extremities: no cyanosis Laboratory Tests 03/05/18 12:12: White Blood Count 16.0H, Red Blood Count 4.58, Hemoglobin 13.0, Hematocrit 41.1 , Mean Corpuscular Volume 90, Mean Corpuscular Hemoglobin 28.4, Mean Corpuscular Hemoglobin Concent 31.6L, Red Cell Distribution Width 14.0, Platelet Count 171, Mean Platelet Volume 8.8, Neutrophils (%) (Auto) 81.2H, Lymphocytes (%) (Auto) 12.7L, Monocytes (%) (Auto) 5.1, Eosinophils (%) (Auto) 0.1, Basophils (%) (Auto) 1.0, Sodium Level 135L, Potassium Level 4.4, Chloride Level 98, Carbon Dioxide Level 29, Anion Gap 8, Blood Urea Nitrogen 23H, Creatinine 0.8, Estimat Glomerular Filtration Rate > 60, Glucose Level 281#H, Calcium Level 9.8 Current Medications Medications (Trade) Dose Ordered Sig/Star Route PRN Reason Start Time Stop Time Status Last Admin Dose Admin Acetaminophen (Tylenol) 650 mg Q4H PRN ORAL FEVER (Temp>100.4F) 02/28/18 17:30 03/28/18 21:29 Acetaminophen (Tylenol) 650 mg Q4H PRN ORAL Mild Pain/Temp > 100.5 03/02/18 19:30 04/01/18 19:29 Acetaminophen/ Hydrocodone Bitart ([place] 10/325) 1 tab Q8H PRN ORAL Pain Scale (4-6) 03/04/18 12:00 03/10/18 18:29 Acetaminophen/ Hydrocodone Bitart ([place] 5/325) 1 tab Q8H PRN ORAL pain (4-6) 03/04/18 12:00 03/11/18 11:59 Albuterol/ Ipratropium (Albuterol/ Ipratropium) 3 ml Q4HRT PRN HHN Shortness of Breath 03/04/18 16:00 03/09/18 15:59 03/04/18 16:22 Bupropion HCl (Wellbutrin XL) 150 mg DAILY ORAL 03/01/18 09:00 03/29/18 08:59 03/05/18 08:31 Clonazepam (KlonoPIN) 1 mg BEDTIME ORAL 03/04/18 21:00 03/11/18 20:59 03/04/18 21:54 Clonidine HCl (Catapres Tab) 0.1 mg Q6H PRN ORAL for SBP > 160 02/28/18 17:00 03/30/18 16:59 03/05/18 07:49 Dextrose (Dextrose 50%) 25 ml STAT PRN IV BS 60-69mg/dl 02/28/18 17:00 03/28/18 16:59 Dextrose (Dextrose 50%) 50 ml STAT PRN IV BS less than 60mg/dl 02/28/18 17:00 03/28/18 16:59 Diphenhydramine HCl (Benadryl) 15 mg BEDTIME PRN ORAL SLEEP 02/28/18 21:00 03/29/18 23:29 03/04/18 00:04 Guaifenesin (Robitussin) 200 mg Q4H PRN ORAL For Cough 03/03/18 18:45 04/02/18 18:44 03/05/18 09:34 HCTZ/Losartan Potassium (Hyzaar 50-12.5) 1 tab DAILY ORAL 03/05/18 09:00 04/04/18 08:59 03/05/18 09:42 Heparin Sodium (Porcine) (Heparin 5000 units/ml) 5,000 units EVERY 12 HOURS SUBQ 02/28/18 21:00 03/29/18 08:59 03/04/18 20:25 Ibuprofen (Motrin) 600 mg TIDPRN PRN ORAL Mild Pain (Pain Scale 1-3) 02/28/18 18:00 03/30/18 17:59 Lorazepam (Ativan) 2 mg Q6H PRN ORAL For Anxiety 03/04/18 12:11 03/11/18 12:10 03/05/18 15:31 Methylprednisolone Sodium Succinate (Solu-MEDROL) 60 mg DAILY IVP 03/05/18 09:00 03/31/18 19:59 03/05/18 08:30 Ondansetron HCl (Zofran) 4 mg Q6H PRN IVP Nausea & Vomiting 02/28/18 17:00 03/28/18 16:59 Oxycodone/ Acetaminophen (Percocet 5-325) 1 tab Q6HR PRN ORAL Severe Pain (Pain Scale 7-10) 03/04/18 12:00 03/11/18 11:59 03/05/18 16:36 Polyethylene Glycol (Miralax) 17 gm DAILYPRN PRN ORAL Constipation 02/28/18 17:00 03/28/18 16:59 02/28/18 23:54 Sertraline HCl (Zoloft) 200 mg DAILY ORAL 03/01/18 09:00 03/29/18 08:59 03/05/18 08:31 Jonathan Cochran MD Mar 05, 2018 16:45
--- NOTE | 2018-03-05 17:04 | Cardiology Progress Note ---
Assessment/Plan Assessment/Plan 1) ACS (acute coronary syndrome) (2) Pneumonia (3) COPD (chronic obstructive pulmonary disease) (4) Costochondritis (5) Depression (6) HTN (hypertension) (7) Stenosis, spinal, lumbar (8) Anxiety Pulmonary Toilet Breathing treatments Medrol PO Singulair BP control - losartan HCTZ 50/12.5 Outpatient stress test Dispo planning Subjective Cardiovascular: Reports: no symptoms Respiratory: Reports: no symptoms Gastrointestinal/Abdominal: Reports: no symptoms Genitourinary: Reports: no symptoms Subjective clinically improving, wheezing improved, minimal oxygen, no distress, no acute events Objective Last 24 Hour Vital Signs Date Time Temp Pulse Resp B/P (MAP) Pulse Ox O2 Delivery O2 Flow Rate FiO2 03/05/18 16:00 98.0 72 20 136/75 98 98.0 03/05/18 12:00 98.0 68 18 145/73 95 98.0 03/05/18 09:42 147/69 03/05/18 09:20 86 147/69 03/05/18 08:00 98.0 87 20 170/100 98 Room Air 98.0 03/05/18 07:55 98 Nasal Cannula 2.0 28 03/05/18 07:55 Nasal Cannula 2.0 28 03/05/18 07:55 75 18 Nasal Cannula 2.0 28 03/05/18 07:49 170/100 03/05/18 04:38 Room Air 03/05/18 04:32 97.7 03/05/18 04:00 97.7 65 18 141/70 94 97.7 03/05/18 03:33 97.7 03/05/18 00:00 97.7 73 18 134/73 97 97.7 03/05/18 00:00 Room Air 03/04/18 20:24 97.5 03/04/18 20:03 97 Nasal Cannula 2.0 28 03/04/18 20:03 Nasal Cannula 2.0 28 03/04/18 20:03 72 18 Nasal Cannula 2.0 28 03/04/18 20:01 97.5 72 18 136/68 97 Nasal Cannula 1.5 97.5 General Appearance: no apparent distress EENT: PERRL/EOMI Neck: non-tender Rhythm: NSR, SB Cardiovascular: normal peripheral pulses Respiratory/Chest: chest wall non-tender Abdomen: normal bowel sounds Extremities: normal range of motion 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: 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1) Neutrophils (%) (Auto) 81.2 % (45.0-75.0) H Lymphocytes (%) (Auto) 12.7 % (20.0-45.0) L Monocytes (%) (Auto) 5.1 % (1.0-10.0) Eosinophils (%) (Auto) 0.1 % (0.0-3.0) Basophils (%) (Auto) 1.0 % (0.0-2.0) Sodium Level 135 MMOL/L (136-145) L Potassium Level 4.4 MMOL/L (3.5-5.1) Chloride Level 98 MMOL/L (98-107) Carbon Dioxide Level 29 MMOL/L (21-32) Anion Gap 8 mmol/L (5-15) Blood Urea Nitrogen 23 mg/dL (7-18) H Creatinine 0.8 MG/DL (0.55-1.30) Estimat Glomerular Filtration Rate > 60 mL/min (>60) Glucose Level 281 MG/DL (74-106) #H Calcium Level 9.8 MG/DL (8.5-10.1) Emir Garvin M.D. Mar 05, 2018 17:04
[2018-03-05] MEDS: Albuterol/Ipratropium 3ml neb HHN PRN (17:30)
[2018-03-05] MEDS ORDERED: Ketorolac 30mg Inj IM SCH (19:11)
--- NOTE | 2018-03-05 19:18 | Geriatric Progress Note ---
Assessment/Plan Problems: (1) COPD (chronic obstructive pulmonary disease) (2) Anxiety (3) Cervical spondylosis (4) HTN (hypertension) (5) Cervical radiculopathy (6) Costochondritis (7) COPD exacerbation (8) Hypercholesteremia (9) History of fusion of cervical spine Assessment/Plan Leukocytosis, likely due to steroids not active infection. Steroids tapered to Prednisone per Dr. Cochran. Suspect combination of antihypertensive, increased Ativan in patient taking clonazepam and opioids causing increased lethargy, instability. Discussed with patient. Suspect pain c/o is due to anxiety, somatization, but will give Toradol 30mg IM x1. Avoid parenteral narcotics if possible. Encouraged patient to ambulate with assist. Reconsult P.T. Patient now wishes to go to other SNF. Ask D/c planning to discuss. Analgesia sufficient, taper. Recheck labs, hopefully can d/c tomorrow. Discussed with: patient, hospital staff Subjective Interval Events Patient c/o excruciating back pain, but sitting comfortably in bed and able to fluidly lie down with legs bent under her without overt distress. Ativan increased to 2mg q6 [address] Dr[address] Francois. Azarzaar added per Dr. Garvin for earlier HTN. Nurses report episode of patient walking to nurses station and nearly falling. Patient admits Ativan 2mg may be too much for her. Constitutional: Reports: pain Respiratory: Reports: cough, shortness of breath Gastrointestinal/Abdominal: Denies: abdominal pain Genitourinary: Denies: dysuria Geriatric Geriatric Last 24 Hour Vital Signs Date Time Temp Pulse Resp B/P (MAP) Pulse Ox O2 Delivery O2 Flow Rate FiO2 03/05/18 17:41 86 20 98 Nasal Cannula 2.0 28 03/05/18 17:31 75 20 96 Nasal Cannula 2.0 28 03/05/18 16:01 Nasal Cannula 1.5 03/05/18 16:00 98.0 72 20 136/75 98 98.0 03/05/18 12:00 98.0 68 18 145/73 95 98.0 03/05/18 09:42 147/69 03/05/18 09:20 86 147/69 03/05/18 08:00 98.0 87 20 170/100 98 Room Air 98.0 03/05/18 07:55 98 Nasal Cannula 2.0 28 03/05/18 07:55 Nasal Cannula 2.0 28 03/05/18 07:55 75 18 Nasal Cannula 2.0 28 03/05/18 07:49 170/100 03/05/18 04:38 Room Air 03/05/18 04:32 97.7 03/05/18 04:00 97.7 65 18 141/70 94 97.7 03/05/18 03:33 97.7 03/05/18 00:00 97.7 73 18 134/73 97 97.7 03/05/18 00:00 Room Air 03/04/18 20:24 97.5 03/04/18 20:03 97 Nasal Cannula 2.0 28 03/04/18 20:03 Nasal Cannula 2.0 28 03/04/18 20:03 72 18 Nasal Cannula 2.0 28 03/04/18 20:01 97.5 72 18 136/68 97 Nasal Cannula 1.5 97.5 Intake and Output 03/04/18 03/05/18 19:00 07:00 Intake Total 620 ml 240 ml Balance 620 ml 240 ml Intake Oral 620 ml 240 ml # Voids 3 3 Laboratory Tests Test 03/05/18 12:12 White Blood Count 16.0 K/UL (4.8-10.8) H Red Blood Count 4.58 M/UL (4.20-5.40) Hemoglobin 13.0 G/DL (12.0-16.0) Hematocrit 41.1 % (37.0-47.0) Mean Corpuscular Volume 90 FL (80-99) Mean Corpuscular Hemoglobin 28.4 PG (27.0-31.0) Mean Corpuscular Hemoglobin Concent 31.6 G/DL (32.0-36.0) L Red Cell Distribution Width 14.0 % (11.6-14.8) Platelet Count 171 K/UL (150-450) Mean Platelet Volume 8.8 FL (6.5-10.1) Neutrophils (%) (Auto) 81.2 % (45.0-75.0) H Lymphocytes (%) (Auto) 12.7 % (20.0-45.0) L Monocytes (%) (Auto) 5.1 % (1.0-10.0) Eosinophils (%) (Auto) 0.1 % (0.0-3.0) Basophils (%) (Auto) 1.0 % (0.0-2.0) Sodium Level 135 MMOL/L (136-145) L Potassium Level 4.4 MMOL/L (3.5-5.1) Chloride Level 98 MMOL/L (98-107) Carbon Dioxide Level 29 MMOL/L (21-32) Anion Gap 8 mmol/L (5-15) Blood Urea Nitrogen 23 mg/dL (7-18) H Creatinine 0.8 MG/DL (0.55-1.30) Estimat Glomerular Filtration Rate > 60 mL/min (>60) Glucose Level 281 MG/DL (74-106) #H Calcium Level 9.8 MG/DL (8.5-10.1) Current Medications Medications (Trade) Dose Ordered Sig/Star Route PRN Reason Start Time Stop Time Status Last Admin Dose Admin Acetaminophen (Tylenol) 650 mg Q4H PRN ORAL FEVER (Temp>100.4F) 02/28/18 17:30 03/28/18 21:29 Acetaminophen (Tylenol) 650 mg Q4H PRN ORAL Mild Pain/Temp > 100.5 03/02/18 19:30 04/01/18 19:29 Acetaminophen/ Hydrocodone Bitart ([place] 10/325) 1 tab Q8H PRN ORAL Pain Scale (4-6) 03/04/18 12:00 03/10/18 18:29 Acetaminophen/ Hydrocodone Bitart ([place] 5/325) 1 tab Q8H PRN ORAL pain (4-6) 03/04/18 12:00 03/11/18 11:59 Albuterol/ Ipratropium (Albuterol/ Ipratropium) 3 ml Q4HRT PRN HHN Shortness of Breath 03/04/18 16:00 03/09/18 15:59 03/05/18 17:30 Bupropion HCl (Wellbutrin XL) 150 mg DAILY ORAL 03/01/18 09:00 03/29/18 08:59 03/05/18 08:31 Clonazepam (KlonoPIN) 1 mg BEDTIME ORAL 03/04/18 21:00 03/11/18 20:59 03/04/18 21:54 Clonidine HCl (Catapres Tab) 0.1 mg Q6H PRN ORAL for SBP > 160 5/28/18 17:00 03/30/18 16:59 03/05/18 07:49 Dextrose (Dextrose 50%) 25 ml STAT PRN IV BS 60-69mg/dl 02/28/18 17:00 03/28/18 16:59 Dextrose (Dextrose 50%) 50 ml STAT PRN IV BS less than 60mg/dl 02/28/18 17:00 03/28/18 16:59 Diphenhydramine HCl (Benadryl) 15 mg BEDTIME PRN ORAL SLEEP 02/28/18 21:00 03/29/18 23:29 03/04/18 00:04 Guaifenesin (Robitussin) 200 mg Q4H PRN ORAL For Cough 03/03/18 18:45 04/02/18 18:44 03/05/18 09:34 HCTZ/Losartan Potassium (Hyzaar 50-12.5) 1 tab DAILY ORAL 03/05/18 09:00 04/04/18 08:59 03/05/18 09:42 Heparin Sodium (Porcine) (Heparin 5000 units/ml) 5,000 units EVERY 12 HOURS SUBQ 02/28/18 21:00 03/29/18 08:59 03/04/18 20:25 Ibuprofen (Motrin) 600 mg TIDPRN PRN ORAL Mild Pain (Pain Scale 1-3) 02/28/18 18:00 03/30/18 17:59 Lorazepam (Ativan) 2 mg Q6H PRN ORAL For Anxiety 03/04/18 12:11 03/11/18 12:10 03/05/18 15:31 Ondansetron HCl (Zofran) 4 mg Q6H PRN IVP Nausea & Vomiting 02/28/18 17:00 03/28/18 16:59 Oxycodone/ Acetaminophen (Percocet 5-325) 1 tab Q6HR PRN ORAL Severe Pain (Pain Scale 7-10) 03/04/18 12:00 03/11/18 11:59 03/05/18 16:36 Polyethylene Glycol (Miralax) 17 gm DAILYPRN PRN ORAL Constipation 02/28/18 17:00 03/28/18 16:59 02/28/18 23:54 Prednisone (predniSONE) 40 mg DAILY ORAL 03/06/18 09:00 04/05/18 08:59 Sertraline HCl (Zoloft) 200 mg DAILY ORAL 03/01/18 09:00 03/29/18 08:59 03/05/18 08:31 Height (Feet): 5 Height (Inches): 5.00 Weight (Pounds): 189 General Appearance: alert, other - dysphoric, somatic Head: normocephalic, atraumatic Eyes: bilateral anicteric ENT: normal voice Neck: no mass Respiratory: decreased breath sounds, other - better air movement, no wheezing , some cough with deep inspiration. Cardiovascular: regular rate, rhythm Gastrointestinal: normal bowel sounds, non tender, soft, no mass, no organomegaly Musculoskeletal: no calf tenderness, other - no increased tone noted in paraspinals Edema: no edema noted Generalized Neurologic: no new focality CRISTA SHARPE Mar 05, 2018 19:18
--- NOTE | 2018-03-05 22:45 | General Progress Note ---
Assessment/Plan Assessment/Plan mdd anxiety cont Zoloft cont increase Ativan Klonopin 1mg qhs Subjective Date patient seen: Mar 05, 2018 Neurologic/Psychiatric: Reports: anxiety, depressed, emotional problems Allergies: Coded Allergies: No Known Allergies (Verified , 03/28/07) Objective Last 24 Hour Vital Signs Date Time Temp Pulse Resp B/P (MAP) Pulse Ox O2 Delivery O2 Flow Rate FiO2 03/05/18 20:07 97.3 17 121/58 95 Room Air 97.3 03/05/18 17:41 86 20 98 Nasal Cannula 2.0 28 03/05/18 17:31 75 20 96 Nasal Cannula 2.0 28 03/05/18 16:01 Nasal Cannula 1.5 03/05/18 16:00 98.0 72 20 136/75 98 98.0 03/05/18 12:00 98.0 68 18 145/73 95 98.0 03/05/18 09:42 147/69 03/05/18 09:20 86 147/69 03/05/18 08:00 98.0 87 20 170/100 98 Room Air 98.0 03/05/18 07:55 98 Nasal Cannula 2.0 28 03/05/18 07:55 Nasal Cannula 2.0 28 03/05/18 07:55 75 18 Nasal Cannula 2.0 28 03/05/18 07:49 170/100 03/05/18 04:38 Room Air 03/05/18 04:32 97.7 03/05/18 04:00 97.7 65 18 141/70 94 97.7 03/05/18 03:33 97.7 03/05/18 00:00 97.7 73 18 134/73 97 97.7 03/05/18 00:00 Room Air Intake and Output 03/04/18 03/05/18 19:00 07:00 Intake Total 620 ml 240 ml Balance 620 ml 240 ml Intake Oral 620 ml 240 ml # Voids 3 3 Laboratory Tests 03/05/18 12:12: White Blood Count 16.0H, Red Blood Count 4.58, Hemoglobin 13.0, Hematocrit 41.1 , Mean Corpuscular Volume 90, Mean Corpuscular Hemoglobin 28.4, Mean Corpuscular Hemoglobin Concent 31.6L, Red Cell Distribution Width 14.0, Platelet Count 171, Mean Platelet Volume 8.8, Neutrophils (%) (Auto) 81.2H, Lymphocytes (%) (Auto) 12.7L, Monocytes (%) (Auto) 5.1, Eosinophils (%) (Auto) 0.1, Basophils (%) (Auto) 1.0, Sodium Level 135L, Potassium Level 4.4, Chloride Level 98, Carbon Dioxide Level 29, Anion Gap 8, Blood Urea Nitrogen 23H, Creatinine 0.8, Estimat Glomerular Filtration Rate > 60, Glucose Level 281#H, Calcium Level 9.8 Height (Feet): 5 Height (Inches): 5.00 Weight (Pounds): 189 General Appearance: no apparent distress, alert Neurologic: oriented x 3, responsive, depressed affect Sindy Francois M.D. Mar 05, 2018 22:45
[2018-03-06 04:09] VITALS: BP 135/70
[2018-03-06] MEDS: LORazepam 1mg tab ORAL PRN ×3 (04:43→19:55)
[2018-03-06] MEDS: oxyCODONE HCL/Acetaminophen 5/325mg ORAL PRN ×2 (06:24→12:35)
[2018-03-06 08:00] VITALS: BP 137/70
[2018-03-06] MEDS: BuPROPion XL 150mg tab ORAL SCH (08:43)
[2018-03-06] MEDS: Sertraline 100mg tab ORAL SCH (08:43)
[2018-03-06] MEDS: Heparin 5000 units/ml inj SUBQ SCH ×2 (08:43→19:59)
[2018-03-06] MEDS: Hyzaar 12.5mg/50mg tab ORAL SCH (08:43)
[2018-03-06] MEDS: guaiFENesin 100mg/5ml Liq ud ORAL PRN (11:01)
--- NOTE | 2018-03-06 11:13 | Pulmonology Progress Note ---
Assessment/Plan Problems: (1) Pneumonia (2) ACS (acute coronary syndrome) (3) COPD (chronic obstructive pulmonary disease) (4) Costochondritis (5) Depression (6) HTN (hypertension) (7) Stenosis, spinal, lumbar (8) Anxiety Assessment/Plan doing better sputum cultures are negative titrate fio2 to sat of 92% check electrolytes psych to see symptomatic treatment Subjective ROS Limited/Unobtainable: No Constitutional: Reports: no symptoms HEENT: Repors: no symptoms Respiratory: Reports: no symptoms Allergies: Coded Allergies: No Known Allergies (Verified , 03/28/07) Objective Last 24 Hour Vital Signs Date Time Temp Pulse Resp B/P (MAP) Pulse Ox O2 Delivery O2 Flow Rate FiO2 03/06/18 08:00 96.8 60 16 137/70 94 Room Air 96.8 03/06/18 04:09 97.2 60 20 135/70 98 Room Air 97.2 03/05/18 23:59 97.3 80 20 138/70 94 Room Air 97.3 03/05/18 20:07 97.3 17 121/58 95 Room Air 97.3 03/05/18 19:24 Nasal Cannula 2.0 28 03/05/18 19:24 87 20 Nasal Cannula 2.0 28 03/05/18 19:24 96 Nasal Cannula 2.0 28 03/05/18 17:41 86 20 98 Nasal Cannula 2.0 28 03/05/18 17:31 75 20 96 Nasal Cannula 2.0 28 03/05/18 16:01 Nasal Cannula 1.5 03/05/18 16:00 98.0 72 20 136/75 98 98.0 03/05/18 12:00 98.0 68 18 145/73 95 98.0 Intake and Output 03/05/18 03/06/18 19:00 07:00 Intake Total 300 ml 360 ml Balance 300 ml 360 ml Intake Oral 300 ml 360 ml # Voids 1 2 Objective General Appearance: WD/WN, no apparent distress, lethargic Lines, tubes and drains: peripheral HEENT: normocephalic, atraumatic, anicteric, mucous membranes moist Neck: non-tender, normal alignment, supple Respiratory/Chest: chest wall non-tender, less wheezing Cardiovascular/Chest: normal peripheral pulses, normal rate, regular rhythm, regularly irregular Abdomen: normal bowel sounds, non tender, soft, no organomegaly, no mass Genitourinary/Rectal: normal genital exam Extremities: normal range of motion, non-tender, normal inspection, no calf tenderness, normal capillary refill Skin Exam: normal pigmentation 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: 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 wheel 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 II-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 grossly normal Physical Exam Narrative General Appearance: WD/WN HEENT: normocephalic, atraumatic Respiratory/Chest: chest wall non-tender, lungs clear Breasts: no masses Cardiovascular: normal peripheral pulses, normal rate Abdomen: normal bowel sounds, soft, non tender Genitourinary: normal external genitalia Extremities: no cyanosis Laboratory Tests 03/05/18 12:12: White Blood Count 16.0H, Red Blood Count 4.58, Hemoglobin 13.0, Hematocrit 41.1 , Mean Corpuscular Volume 90, Mean Corpuscular Hemoglobin 28.4, Mean Corpuscular Hemoglobin Concent 31.6L, Red Cell Distribution Width 14.0, Platelet Count 171, Mean Platelet Volume 8.8, Neutrophils (%) (Auto) 81.2H, Lymphocytes (%) (Auto) 12.7L, Monocytes (%) (Auto) 5.1, Eosinophils (%) (Auto) 0.1, Basophils (%) (Auto) 1.0, Sodium Level 135L, Potassium Level 4.4, Chloride Level 98, Carbon Dioxide Level 29, Anion Gap 8, Blood Urea Nitrogen 23H, Creatinine 0.8, Estimat Glomerular Filtration Rate > 60, Glucose Level 281#H, Calcium Level 9.8 Current Medications Medications (Trade) Dose Ordered Sig/Star Route PRN Reason Start Time Stop Time Status Last Admin Dose Admin Acetaminophen (Tylenol) 650 mg Q4H PRN ORAL FEVER (Temp>100.4F) 02/28/18 17:30 03/28/18 21:29 Acetaminophen (Tylenol) 650 mg Q4H PRN ORAL Mild Pain/Temp > 100.5 03/02/18 19:30 04/01/18 19:29 Acetaminophen/ Hydrocodone Bitart ([place] 10/325) 1 tab Q8H PRN ORAL Pain Scale (4-6) 03/04/18 12:00 03/10/18 18:29 Acetaminophen/ Hydrocodone Bitart ([place] 5/325) 1 tab Q8H PRN ORAL pain (4-6) 03/04/18 12:00 03/11/18 11:59 03/06/18 00:03 Albuterol/ Ipratropium (Albuterol/ Ipratropium) 3 ml Q4HRT PRN HHN Shortness of Breath 03/04/18 16:00 03/09/18 15:59 03/05/18 17:30 Bupropion HCl (Wellbutrin XL) 150 mg DAILY ORAL 03/01/18 09:00 03/29/18 08:59 03/05/18 08:31 Clonazepam (KlonoPIN) 1 mg BEDTIME ORAL 03/04/18 21:00 03/11/18 20:59 03/05/18 20:24 Clonidine HCl (Catapres Tab) 0.1 mg Q6H PRN ORAL for SBP > 160 02/28/18 17:00 03/30/18 16:59 03/05/18 07:49 Dextrose (Dextrose 50%) 25 ml STAT PRN IV BS 60-69mg/dl 02/28/18 17:00 03/28/18 16:59 Dextrose (Dextrose 50%) 50 ml STAT PRN IV BS less than 60mg/dl 02/28/18 17:00 03/28/18 16:59 Diphenhydramine HCl (Benadryl) 15 mg BEDTIME PRN ORAL SLEEP 02/28/18 21:00 03/29/18 23:29 03/04/18 00:04 Guaifenesin (Robitussin) 200 mg Q4H PRN ORAL For Cough 03/03/18 18:45 04/02/18 18:44 03/06/18 11:01 HCTZ/Losartan Potassium (Hyzaar 50-12.5) 1 tab DAILY ORAL 03/05/18 09:00 04/04/18 08:59 03/05/18 09:42 Heparin Sodium (Porcine) (Heparin 5000 units/ml) 5,000 units EVERY 12 HOURS SUBQ 02/28/18 21:00 03/29/18 08:59 03/04/18 20:25 Ibuprofen (Motrin) 600 mg TIDPRN PRN ORAL Mild Pain (Pain Scale 1-3) 02/28/18 18:00 03/30/18 17:59 Lorazepam (Ativan) 1 mg Q6H PRN ORAL For Anxiety 03/05/18 19:13 03/12/18 19:12 03/06/18 04:43 Ondansetron HCl (Zofran) 4 mg Q6H PRN IVP Nausea & Vomiting 02/28/18 17:00 03/28/18 16:59 Oxycodone/ Acetaminophen (Percocet 5-325) 1 tab Q6HR PRN ORAL Severe Pain (Pain Scale 7-10) 03/04/18 12:00 03/11/18 11:59 03/06/18 06:24 Polyethylene Glycol (Miralax) 17 gm DAILYPRN PRN ORAL Constipation 02/28/18 17:00 03/28/18 16:59 02/28/18 23:54 Prednisone (predniSONE) 40 mg DAILY ORAL 03/06/18 09:00 04/05/18 08:59 Sertraline HCl (Zoloft) 200 mg DAILY ORAL 03/01/18 09:00 03/29/18 08:59 03/05/18 08:31 Jonathan Cochran MD Mar 06, 2018 11:13
[2018-03-06 12:00] VITALS: BP 132/68
[2018-03-06 12:18] LABS: BASOPHILS % (AUTO) 0.9 % (0.0-2.0); EOSINOPHILS % (AUTO) 0.7 % (0.0-3.0); HEMATOCRIT 43.6 % (37.0-47.0); LYMPHOCYTES % (AUTO) 23.9 % (20.0-45.0); MEAN CORPUSCULAR VOLUME 90 FL (80-99); MONOCYTES % (AUTO) 8.6 % (1.0-10.0); PLATELET COUNT 177 K/UL (150-450); RED BLOOD COUNT 4.87 M/UL (4.20-5.40); RED CELL DISTRIBUTION WIDTH 14.1 % (11.6-14.8); WHITE BLOOD COUNT 16.4 K/UL (4.8-10.8)
[2018-03-06] MEDS: Albuterol/Ipratropium 3ml neb HHN PRN (12:51)
[2018-03-06 16:00] VITALS: BP 131/66
--- NOTE | 2018-03-06 19:13 | Cardiology Progress Note ---
Assessment/Plan Assessment/Plan 1) ACS (acute coronary syndrome) (2) Pneumonia (3) COPD (chronic obstructive pulmonary disease) (4) Costochondritis (5) Depression (6) HTN (hypertension) (7) Stenosis, spinal, lumbar (8) Anxiety Pulmonary Toilet Breathing treatments Medrol PO Singulair BP control - losartan HCTZ 50/12.5 Outpatient stress test Dispo planning Subjective Respiratory: Reports: no symptoms Gastrointestinal/Abdominal: Reports: no symptoms Genitourinary: Reports: no symptoms Subjective clinically improving, wheezing improved, minimal oxygen, no distress, no acute events Objective Last 24 Hour Vital Signs Date Time Temp Pulse Resp B/P (MAP) Pulse Ox O2 Delivery O2 Flow Rate FiO2 03/06/18 16:00 97.4 72 20 131/66 97 Nasal Cannula 2.0 97.4 03/06/18 12:51 77 18 97 Nasal Cannula 2.0 28 03/06/18 12:00 96.6 85 18 132/68 99 Room Air 96.6 03/06/18 09:37 Nasal Cannula 2.0 28 03/06/18 09:36 96 Nasal Cannula 2.0 28 03/06/18 09:34 77 18 Nasal Cannula 2.0 28 03/06/18 08:00 96.8 60 16 137/70 94 Room Air 96.8 03/06/18 04:09 97.2 60 20 135/70 98 Room Air 97.2 03/05/18 23:59 97.3 80 20 138/70 94 Room Air 97.3 03/05/18 20:07 97.3 17 121/58 95 Room Air 97.3 03/05/18 19:24 Nasal Cannula 2.0 28 03/05/18 19:24 87 20 Nasal Cannula 2.0 28 03/05/18 19:24 96 Nasal Cannula 2.0 28 General Appearance: no apparent distress EENT: PERRL/EOMI Neck: non-tender Cardiovascular: normal peripheral pulses Respiratory/Chest: expiratory wheezing Abdomen: normal bowel sounds Extremities: normal range of motion Intake and Output 03/05/18 03/06/18 19:00 07:00 Intake Total 300 ml 360 ml Balance 300 ml 360 ml Intake Oral 300 ml 360 ml # Voids 1 2 Laboratory Tests Test 03/06/18 12:09 White Blood Count 16.4 K/UL (4.8-10.8) H Red Blood Count 4.87 M/UL (4.20-5.40) Hemoglobin 14.0 G/DL (12.0-16.0) Hematocrit 43.6 % (37.0-47.0) Mean Corpuscular Volume 90 FL (80-99) Mean Corpuscular Hemoglobin 28.8 PG (27.0-31.0) Mean Corpuscular Hemoglobin Concent 32.1 G/DL (32.0-36.0) Red Cell Distribution Width 14.1 % (11.6-14.8) Platelet Count 177 K/UL (150-450) Mean Platelet Volume 9.9 FL (6.5-10.1) Neutrophils (%) (Auto) 66.0 % (45.0-75.0) Lymphocytes (%) (Auto) 23.9 % (20.0-45.0) Monocytes (%) (Auto) 8.6 % (1.0-10.0) Eosinophils (%) (Auto) 0.7 % (0.0-3.0) Basophils (%) (Auto) 0.9 % (0.0-2.0) Emir Garvin M.D. Mar 06, 2018 19:13
[2018-03-06 20:00] VITALS: BP 125/65
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
[2018-03-06] MEDS ORDERED: Norco 5mg/325mg tab ORAL PRN (22:30)
[2018-03-07] VITALS: BP 130/70
[2018-03-07] MEDS: LORazepam 1mg tab ORAL PRN ×3 (02:22→20:16)
[2018-03-07 04:00] VITALS: BP 135/65
[2018-03-07 08:00] VITALS: BP 128/72
[2018-03-07 08:00] LABS: BASOPHILS % (AUTO) 0.6 % (0.0-2.0); EOSINOPHILS % (AUTO) 1.6 % (0.0-3.0); HEMOGLOBIN 12.3 G/DL (12.0-16.0); LYMPHOCYTES % (AUTO) 33.9 % (20.0-45.0); MEAN CORPUSCULAR VOLUME 90 FL (80-99); MONOCYTES % (AUTO) 7.4 % (1.0-10.0); NEUTROPHILS % (AUTO) 56.5 % (45.0-75.0); PLATELET COUNT 163 K/UL (150-450); RED BLOOD COUNT 4.35 M/UL (4.20-5.40); RED CELL DISTRIBUTION WIDTH 14.3 % (11.6-14.8); WHITE BLOOD COUNT 12.8 K/UL (4.8-10.8)
[2018-03-07] MEDS: Sertraline 100mg tab ORAL SCH (08:36)
[2018-03-07] MEDS: oxyCODONE HCL/Acetaminophen 5/325mg ORAL PRN ×3 (08:36→21:15)
[2018-03-07] MEDS: BuPROPion XL 150mg tab ORAL SCH (08:37)
[2018-03-07] MEDS: Heparin 5000 units/ml inj SUBQ SCH ×2 (08:38→21:00)
[2018-03-07] MEDS: Hyzaar 12.5mg/50mg tab ORAL SCH (08:40)
[2018-03-07 12:00] VITALS: BP 131/70
--- NOTE | 2018-03-07 12:28 | Cardiology Progress Note ---
Assessment/Plan Assessment/Plan 1) ACS (acute coronary syndrome) (2) Pneumonia (3) COPD (chronic obstructive pulmonary disease) (4) Costochondritis (5) Depression (6) HTN (hypertension) (7) Stenosis, spinal, lumbar (8) Anxiety Pulmonary Toilet Breathing treatments Medrol PO Singulair BP control - losartan HCTZ 50/12.5 Outpatient stress test Dispo planning Subjective Cardiovascular: Reports: no symptoms Respiratory: Reports: no symptoms Gastrointestinal/Abdominal: Reports: no symptoms Genitourinary: Reports: no symptoms Subjective clinically improving, wheezing improved, minimal oxygen, no distress, no acute events Objective Last 24 Hour Vital Signs Date Time Temp Pulse Resp B/P (MAP) Pulse Ox O2 Delivery O2 Flow Rate FiO2 03/07/18 12:00 98.1 87 18 131/70 98 Nasal Cannula 2.0 98.1 03/07/18 08:40 135/65 03/07/18 08:27 Nasal Cannula 2.0 28 03/07/18 08:27 81 18 Nasal Cannula 2.0 28 03/07/18 08:27 97 Nasal Cannula 2.0 28 03/07/18 08:00 97.7 82 20 128/72 99 Nasal Cannula 2.0 97.7 03/07/18 04:00 97.5 75 18 135/65 99 Nasal Cannula 2.0 97.5 03/07/18 00:00 97.6 85 20 130/70 98 Nasal Cannula 2.0 97.6 03/06/18 20:00 98.1 70 18 125/65 99 Nasal Cannula 2.0 98.1 03/06/18 19:53 Nasal Cannula 2.0 28 03/06/18 19:53 87 20 Nasal Cannula 2.0 28 03/06/18 19:53 96 Nasal Cannula 2.0 28 03/06/18 16:00 97.4 72 20 131/66 97 Nasal Cannula 2.0 97.4 03/06/18 12:51 77 18 97 Nasal Cannula 2.0 28 General Appearance: no apparent distress EENT: PERRL/EOMI Neck: non-tender Rhythm: NSR Cardiovascular: normal peripheral pulses Respiratory/Chest: chest wall non-tender Abdomen: normal bowel sounds Extremities: normal range of motion 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 Intake and Output 03/06/18 03/07/18 19:00 07:00 Intake Total 840 ml 400 ml Balance 840 ml 400 ml Intake Oral 840 ml 400 ml # Voids 4 # Bowel Movements 1 Laboratory Tests Test 03/07/18 06:20 White Blood Count 12.8 K/UL (4.8-10.8) H Red Blood Count 4.35 M/UL (4.20-5.40) Hemoglobin 12.3 G/DL (12.0-16.0) Hematocrit 39.0 % (37.0-47.0) Mean Corpuscular Volume 90 FL (80-99) Mean Corpuscular Hemoglobin 28.2 PG (27.0-31.0) Mean Corpuscular Hemoglobin Concent 31.4 G/DL (32.0-36.0) L Red Cell Distribution Width 14.3 % (11.6-14.8) Platelet Count 163 K/UL (150-450) Mean Platelet Volume 10.5 FL (6.5-10.1) H Neutrophils (%) (Auto) 56.5 % (45.0-75.0) Lymphocytes (%) (Auto) 33.9 % (20.0-45.0) Monocytes (%) (Auto) 7.4 % (1.0-10.0) Eosinophils (%) (Auto) 1.6 % (0.0-3.0) Basophils (%) (Auto) 0.6 % (0.0-2.0) Emir Garvin M.D. Mar 07, 2018 12:28
--- NOTE | 2018-03-07 12:34 | Infectious Diseases Prog Note ---
Assessment/Plan Assessment/Plan Assessment: Bronchitis- s/p Rx -CXR: Minimal subsegmental atelectasis in the lung bases. The lungs otherwise appear clear. -influenza sc neg -sp cx normal luz Leukocytosis (improving)- on high dose steroids -CXR 03/04: No acute disease Low grade fever,SP -u/a wbc 15-20, nit neg, leuk +2; ucx <10K mixed gram positive growth (not clinically significant) -Bcx Neg HTN COPD CHF chronic neck pain s/p fusion tobacco abuse Plan: -Continue to monitor off abx -03/02 SP Levaquin abx d#02/05 -02/27 SP IV Vanco #2 and Cefepime #1 -02/26 Ceftriaxone and Levaquin x1 -Monitor CBC/BMP, temperatures -Trend WBC -Cdiff if diarrhea -discharge planning Thank you for this consultation. Will continue to follow along with you. Discussed with RN. Subjective Allergies: Coded Allergies: No Known Allergies (Verified , 03/28/07) Subjective afebrile leukocytosis improving on prednisone SOB improving Objective Vital Signs Last 24 Hour Vital Signs Date Time Temp Pulse Resp B/P (MAP) Pulse Ox O2 Delivery O2 Flow Rate FiO2 03/07/18 12:00 98.1 87 18 131/70 98 Nasal Cannula 2.0 98.1 03/07/18 08:40 135/65 03/07/18 08:27 Nasal Cannula 2.0 28 03/07/18 08:27 81 18 Nasal Cannula 2.0 28 03/07/18 08:27 97 Nasal Cannula 2.0 28 03/07/18 08:00 97.7 82 20 128/72 99 Nasal Cannula 2.0 97.7 03/07/18 04:00 97.5 75 18 135/65 99 Nasal Cannula 2.0 97.5 03/07/18 00:00 97.6 85 20 130/70 98 Nasal Cannula 2.0 97.6 03/06/18 20:00 98.1 70 18 125/65 99 Nasal Cannula 2.0 98.1 03/06/18 19:53 Nasal Cannula 2.0 28 03/06/18 19:53 87 20 Nasal Cannula 2.0 28 03/06/18 19:53 96 Nasal Cannula 2.0 28 03/06/18 16:00 97.4 72 20 131/66 97 Nasal Cannula 2.0 97.4 03/06/18 12:51 77 18 97 Nasal Cannula 2.0 28 Height (Feet): 5 Height (Inches): 5.00 Weight (Pounds): 189 Objective General Appearance: well appearing, mild distress HEENT: normocephalic bilateral eye PERRL, moist mucus membranes Neck: supple Respiratory: wheezing, expiration, inspiration Cardiovascular : no edema, no JVD, tachycardia Gastrointestinal: normal inspection, normal bowel sounds, non tender, no mass, non-distended Musculoskeletal: back normal, gait/station normal, normal range of motion Neurologic: alert, oriented x3, motor strength/tone normal, grossly normal Skin: normal inspection, warm/dry Laboratory Tests Test 03/07/18 06:20 White Blood Count 12.8 K/UL (4.8-10.8) H Red Blood Count 4.35 M/UL (4.20-5.40) Hemoglobin 12.3 G/DL (12.0-16.0) Hematocrit 39.0 % (37.0-47.0) Mean Corpuscular Volume 90 FL (80-99) Mean Corpuscular Hemoglobin 28.2 PG (27.0-31.0) Mean Corpuscular Hemoglobin Concent 31.4 G/DL (32.0-36.0) L Red Cell Distribution Width 14.3 % (11.6-14.8) Platelet Count 163 K/UL (150-450) Mean Platelet Volume 10.5 FL (6.5-10.1) H Neutrophils (%) (Auto) 56.5 % (45.0-75.0) Lymphocytes (%) (Auto) 33.9 % (20.0-45.0) Monocytes (%) (Auto) 7.4 % (1.0-10.0) Eosinophils (%) (Auto) 1.6 % (0.0-3.0) Basophils (%) (Auto) 0.6 % (0.0-2.0) Current Medications Medications (Trade) Dose Ordered Sig/Star Route PRN Reason Start Time Stop Time Status Last Admin Dose Admin Acetaminophen (Tylenol) 650 mg Q4H PRN ORAL FEVER (Temp>100.4F) 02/28/18 17:30 03/28/18 21:29 Acetaminophen (Tylenol) 650 mg Q4H PRN ORAL Mild Pain/Temp > 100.5 03/02/18 19:30 04/01/18 19:29 Acetaminophen/ Hydrocodone Bitart ([place] 5/325) 1 tab Q6H PRN ORAL pain (4-6) 03/06/18 22:30 03/13/18 22:29 Albuterol/ Ipratropium (Albuterol/ Ipratropium) 3 ml Q4HRT PRN HHN Shortness of Breath 03/04/18 16:00 03/09/18 15:59 03/06/18 12:51 Bupropion HCl (Wellbutrin XL) 150 mg DAILY ORAL 03/01/18 09:00 03/29/18 08:59 03/07/18 08:37 Clonazepam (KlonoPIN) 1 mg BEDTIME ORAL 03/04/18 21:00 03/11/18 20:59 03/06/18 21:19 Clonidine HCl (Catapres Tab) 0.1 mg Q6H PRN ORAL for SBP > 160 02/28/18 17:00 03/30/18 16:59 03/05/18 07:49 Dextrose (Dextrose 50%) 25 ml STAT PRN IV BS 60-69mg/dl 02/28/18 17:00 03/28/18 16:59 Dextrose (Dextrose 50%) 50 ml STAT PRN IV BS less than 60mg/dl 02/28/18 17:00 03/28/18 16:59 Guaifenesin (Robitussin) 200 mg Q4H PRN ORAL For Cough 03/03/18 18:45 04/02/18 18:44 03/06/18 11:01 HCTZ/Losartan Potassium (Hyzaar 50-12.5) 1 tab DAILY ORAL 03/05/18 09:00 04/04/18 08:59 03/07/18 08:40 Heparin Sodium (Porcine) (Heparin 5000 units/ml) 5,000 units EVERY 12 HOURS SUBQ 02/28/18 21:00 03/29/18 08:59 03/07/18 08:38 Ibuprofen (Motrin) 600 mg TIDPRN PRN ORAL Mild Pain (Pain Scale 1-3) 02/28/18 18:00 03/30/18 17:59 Lorazepam (Ativan) 1 mg Q6H PRN ORAL For Anxiety 03/05/18 19:13 03/12/18 19:12 03/07/18 02:22 Ondansetron HCl (Zofran) 4 mg Q6H PRN IVP Nausea & Vomiting 02/28/18 17:00 03/28/18 16:59 Oxycodone/ Acetaminophen (Percocet 5-325) 1 tab Q6HR PRN ORAL Severe Pain (Pain Scale 7-10) 03/04/18 12:00 03/11/18 11:59 03/07/18 08:36 Polyethylene Glycol (Miralax) 17 gm DAILYPRN PRN ORAL Constipation 02/28/18 17:00 03/28/18 16:59 02/28/18 23:54 Prednisone (predniSONE) 40 mg DAILY ORAL 03/06/18 09:00 04/05/18 08:59 03/07/18 08:37 Sertraline HCl (Zoloft) 200 mg DAILY ORAL 03/01/18 09:00 03/29/18 08:59 03/07/18 08:36 Carol Ruano M.D. Mar 07, 2018 12:34
--- NOTE | 2018-03-07 15:36 | Pulmonology Progress Note ---
Assessment/Plan Problems: (1) Pneumonia (2) ACS (acute coronary syndrome) (3) COPD (chronic obstructive pulmonary disease) (4) Costochondritis (5) Depression (6) HTN (hypertension) (7) Stenosis, spinal, lumbar (8) Anxiety Assessment/Plan doing better sputum cultures are negative titrate fio2 to sat of 92% check electrolytes psych to see symptomatic treatment dc planning in progress Subjective ROS Limited/Unobtainable: No Constitutional: Reports: no symptoms HEENT: Repors: no symptoms Respiratory: Reports: no symptoms Allergies: Coded Allergies: No Known Allergies (Verified , 03/28/07) Objective Last 24 Hour Vital Signs Date Time Temp Pulse Resp B/P (MAP) Pulse Ox O2 Delivery O2 Flow Rate FiO2 03/07/18 12:00 98.1 87 18 131/70 98 Nasal Cannula 2.0 98.1 03/07/18 08:40 135/65 03/07/18 08:27 Nasal Cannula 2.0 28 03/07/18 08:27 81 18 Nasal Cannula 2.0 28 03/07/18 08:27 97 Nasal Cannula 2.0 28 03/07/18 08:00 97.7 82 20 128/72 99 Nasal Cannula 2.0 97.7 03/07/18 04:00 97.5 75 18 135/65 99 Nasal Cannula 2.0 97.5 03/07/18 00:00 97.6 85 20 130/70 98 Nasal Cannula 2.0 97.6 03/06/18 20:00 98.1 70 18 125/65 99 Nasal Cannula 2.0 98.1 03/06/18 19:53 Nasal Cannula 2.0 28 03/06/18 19:53 87 20 Nasal Cannula 2.0 28 03/06/18 19:53 96 Nasal Cannula 2.0 28 03/06/18 16:00 97.4 72 20 131/66 97 Nasal Cannula 2.0 97.4 Intake and Output 03/06/18 03/07/18 19:00 07:00 Intake Total 840 ml 400 ml Balance 840 ml 400 ml Intake Oral 840 ml 400 ml # Voids 4 # Bowel Movements 1 Objective General Appearance: WD/WN, no apparent distress, lethargic Lines, tubes and drains: peripheral HEENT: normocephalic, atraumatic, anicteric, mucous membranes moist Neck: non-tender, normal alignment, supple Respiratory/Chest: chest wall non-tender, less wheezing Cardiovascular/Chest: normal peripheral pulses, normal rate, regular rhythm, regularly irregular Abdomen: normal bowel sounds, non tender, soft, no organomegaly, no mass Genitourinary/Rectal: normal genital exam Extremities: normal range of motion, non-tender, normal inspection, no calf tenderness, normal capillary refill Skin Exam: normal pigmentation 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 Physical Exam Narrative General Appearance: WD/WN HEENT: normocephalic, atraumatic Respiratory/Chest: chest wall non-tender, lungs clear Breasts: no masses Cardiovascular: normal peripheral pulses, normal rate Abdomen: normal bowel sounds, soft, non tender Genitourinary: normal external genitalia Extremities: no cyanosis Laboratory Tests 03/07/18 06:20: White Blood Count 12.8H, Red Blood Count 4.35, Hemoglobin 12.3, Hematocrit 39.0 , Mean Corpuscular Volume 90, Mean Corpuscular Hemoglobin 28.2, Mean Corpuscular Hemoglobin Concent 31.4L, Red Cell Distribution Width 14.3, Platelet Count 163, Mean Platelet Volume 10.5H, Neutrophils (%) (Auto) 56.5, Lymphocytes (%) (Auto) 33.9, Monocytes (%) (Auto) 7.4, Eosinophils (%) (Auto) 1.6, Basophils (%) (Auto) 0.6 Current Medications Medications (Trade) Dose Ordered Sig/Star Route PRN Reason Start Time Stop Time Status Last Admin Dose Admin Acetaminophen (Tylenol) 650 mg Q4H PRN ORAL FEVER (Temp>100.4F) 02/28/18 17:30 03/28/18 21:29 Acetaminophen (Tylenol) 650 mg Q4H PRN ORAL Mild Pain/Temp > 100.5 03/02/18 19:30 04/01/18 19:29 Acetaminophen/ Hydrocodone Bitart ([place] 5/325) 1 tab Q6H PRN ORAL pain (4-6) 03/06/18 22:30 03/13/18 22:29 Albuterol/ Ipratropium (Albuterol/ Ipratropium) 3 ml Q4HRT PRN HHN Shortness of Breath 03/04/18 16:00 03/09/18 15:59 03/06/18 12:51 Bupropion HCl (Wellbutrin XL) 150 mg DAILY ORAL 03/01/18 09:00 03/29/18 08:59 03/07/18 08:37 Clonazepam (KlonoPIN) 1 mg BEDTIME ORAL 03/04/18 21:00 03/11/18 20:59 03/06/18 21:19 Clonidine HCl (Catapres Tab) 0.1 mg Q6H PRN ORAL for SBP > 160 02/28/18 17:00 03/30/18 16:59 03/05/18 07:49 Dextrose (Dextrose 50%) 25 ml STAT PRN IV BS 60-69mg/dl 02/28/18 17:00 03/28/18 16:59 Dextrose (Dextrose 50%) 50 ml STAT PRN IV BS less than 60mg/dl 02/28/18 17:00 03/28/18 16:59 Guaifenesin (Robitussin) 200 mg Q4H PRN ORAL For Cough 03/03/18 18:45 04/02/18 18:44 03/06/18 11:01 HCTZ/Losartan Potassium (Hyzaar 50-12.5) 1 tab DAILY ORAL 03/05/18 09:00 04/04/18 08:59 03/07/18 08:40 Heparin Sodium (Porcine) (Heparin 5000 units/ml) 5,000 units EVERY 12 HOURS SUBQ 02/28/18 21:00 03/29/18 08:59 03/07/18 08:38 Ibuprofen (Motrin) 600 mg TIDPRN PRN ORAL Mild Pain (Pain Scale 1-3) 02/28/18 18:00 03/30/18 17:59 Lorazepam (Ativan) 1 mg Q6H PRN ORAL For Anxiety 03/05/18 19:13 03/12/18 19:12 03/07/18 13:18 Ondansetron HCl (Zofran) 4 mg Q6H PRN IVP Nausea & Vomiting 02/28/18 17:00 03/28/18 16:59 Oxycodone/ Acetaminophen (Percocet 5-325) 1 tab Q6HR PRN ORAL Severe Pain (Pain Scale 7-10) 03/04/18 12:00 03/11/18 11:59 03/07/18 14:55 Polyethylene Glycol (Miralax) 17 gm DAILYPRN PRN ORAL Constipation 02/28/18 17:00 03/28/18 16:59 02/28/18 23:54 Prednisone (predniSONE) 40 mg DAILY ORAL 03/06/18 09:00 04/05/18 08:59 03/07/18 08:37 Sertraline HCl (Zoloft) 200 mg DAILY ORAL 03/01/18 09:00 03/29/18 08:59 03/07/18 08:36 Jonathan Cochran MD Mar 07, 2018 15:36
--- NOTE | 2018-03-07 15:55 | Geriatric Progress Note ---
Assessment/Plan Problems: (1) COPD (chronic obstructive pulmonary disease) (2) Anxiety (3) Cervical spondylosis (4) HTN (hypertension) (5) Cervical radiculopathy (6) Costochondritis (7) COPD exacerbation (8) Hypercholesteremia (9) History of fusion of cervical spine Assessment/Plan Leukocytosis diminished on lower steroid dosing. Functionally improving. Await SNF bed availability. Taper O2 as tolerated. Discussed analgesic use and tobacco abstinence again with patient who acknowledges issues and hopes to comply. Discussed with: patient, hospital staff Subjective Interval Events Patient reports feeling better. Able to walk around floor without incident. Eating 100%. Still using O2 2l/m, with sat 98%. Reports pain control slightly better. Review of meds reveals taking Percocet x2 today, no [place]. Taking Ativan x 2 today, on top of Clonazepam. Reviewed status with Kirk Lux. Constitutional: Reports: pain Respiratory: Reports: shortness of breath; Denies: cough Cardiovascular: Denies: chest pain Gastrointestinal/Abdominal: Denies: abdominal pain Genitourinary: Denies: dysuria Geriatric Geriatric Last 24 Hour Vital Signs Date Time Temp Pulse Resp B/P (MAP) Pulse Ox O2 Delivery O2 Flow Rate FiO2 03/07/18 12:00 98.1 87 18 131/70 98 Nasal Cannula 2.0 98.1 03/07/18 08:40 135/65 03/07/18 08:27 Nasal Cannula 2.0 28 03/07/18 08:27 81 18 Nasal Cannula 2.0 28 03/07/18 08:27 97 Nasal Cannula 2.0 28 03/07/18 08:00 97.7 82 20 128/72 99 Nasal Cannula 2.0 97.7 03/07/18 04:00 97.5 75 18 135/65 99 Nasal Cannula 2.0 97.5 03/07/18 00:00 97.6 85 20 130/70 98 Nasal Cannula 2.0 97.6 03/06/18 20:00 98.1 70 18 125/65 99 Nasal Cannula 2.0 98.1 03/06/18 19:53 Nasal Cannula 2.0 28 03/06/18 19:53 87 20 Nasal Cannula 2.0 28 03/06/18 19:53 96 Nasal Cannula 2.0 28 03/06/18 16:00 97.4 72 20 131/66 97 Nasal Cannula 2.0 97.4 Intake and Output 03/06/18 03/07/18 19:00 07:00 Intake Total 840 ml 400 ml Balance 840 ml 400 ml Intake Oral 840 ml 400 ml # Voids 4 # Bowel Movements 1 Laboratory Tests Test 03/07/18 06:20 White Blood Count 12.8 K/UL (4.8-10.8) H Red Blood Count 4.35 M/UL (4.20-5.40) Hemoglobin 12.3 G/DL (12.0-16.0) Hematocrit 39.0 % (37.0-47.0) Mean Corpuscular Volume 90 FL (80-99) Mean Corpuscular Hemoglobin 28.2 PG (27.0-31.0) Mean Corpuscular Hemoglobin Concent 31.4 G/DL (32.0-36.0) L Red Cell Distribution Width 14.3 % (11.6-14.8) Platelet Count 163 K/UL (150-450) Mean Platelet Volume 10.5 FL (6.5-10.1) H Neutrophils (%) (Auto) 56.5 % (45.0-75.0) Lymphocytes (%) (Auto) 33.9 % (20.0-45.0) Monocytes (%) (Auto) 7.4 % (1.0-10.0) Eosinophils (%) (Auto) 1.6 % (0.0-3.0) Basophils (%) (Auto) 0.6 % (0.0-2.0) Current Medications Medications (Trade) Dose Ordered Sig/Star Route PRN Reason Start Time Stop Time Status Last Admin Dose Admin Acetaminophen (Tylenol) 650 mg Q4H PRN ORAL FEVER (Temp>100.4F) 02/28/18 17:30 03/28/18 21:29 Acetaminophen (Tylenol) 650 mg Q4H PRN ORAL Mild Pain/Temp > 100.5 03/02/18 19:30 04/01/18 19:29 Acetaminophen/ Hydrocodone Bitart ([place] 5/325) 1 tab Q6H PRN ORAL pain (4-6) 03/06/18 22:30 03/13/18 22:29 Albuterol/ Ipratropium (Albuterol/ Ipratropium) 3 ml Q4HRT PRN HHN Shortness of Breath 03/04/18 16:00 03/09/18 15:59 03/06/18 12:51 Bupropion HCl (Wellbutrin XL) 150 mg DAILY ORAL 03/01/18 09:00 03/29/18 08:59 03/07/18 08:37 Clonazepam (KlonoPIN) 1 mg BEDTIME ORAL 03/04/18 21:00 03/11/18 20:59 03/06/18 21:19 Clonidine HCl (Catapres Tab) 0.1 mg Q6H PRN ORAL for SBP > 160 02/28/18 17:00 03/30/18 16:59 03/05/18 07:49 Dextrose (Dextrose 50%) 25 ml STAT PRN IV BS 60-69mg/dl 02/28/18 17:00 03/28/18 16:59 Dextrose (Dextrose 50%) 50 ml STAT PRN IV BS less than 60mg/dl 02/28/18 17:00 03/28/18 16:59 Guaifenesin (Robitussin) 200 mg Q4H PRN ORAL For Cough 03/03/18 18:45 04/02/18 18:44 03/06/18 11:01 HCTZ/Losartan Potassium (Hyzaar 50-12.5) 1 tab DAILY ORAL 03/05/18 09:00 04/04/18 08:59 03/07/18 08:40 Heparin Sodium (Porcine) (Heparin 5000 units/ml) 5,000 units EVERY 12 HOURS SUBQ 02/28/18 21:00 03/29/18 08:59 03/07/18 08:38 Ibuprofen (Motrin) 600 mg TIDPRN PRN ORAL Mild Pain (Pain Scale 1-3) 02/28/18 18:00 03/30/18 17:59 Lorazepam (Ativan) 1 mg Q6H PRN ORAL For Anxiety 03/05/18 19:13 03/12/18 19:12 03/07/18 13:18 Ondansetron HCl (Zofran) 4 mg Q6H PRN IVP Nausea & Vomiting 02/28/18 17:00 03/28/18 16:59 Oxycodone/ Acetaminophen (Percocet 5-325) 1 tab Q6HR PRN ORAL Severe Pain (Pain Scale 7-10) 03/04/18 12:00 03/11/18 11:59 03/07/18 14:55 Polyethylene Glycol (Miralax) 17 gm DAILYPRN PRN ORAL Constipation 02/28/18 17:00 03/28/18 16:59 02/28/18 23:54 Prednisone (predniSONE) 40 mg DAILY ORAL 03/06/18 09:00 04/05/18 08:59 03/07/18 08:37 Sertraline HCl (Zoloft) 200 mg DAILY ORAL 03/01/18 09:00 03/29/18 08:59 03/07/18 08:36 Height (Feet): 5 Height (Inches): 5.00 Weight (Pounds): 189 General Appearance: no apparent distress, alert, non-toxic Head: normocephalic, atraumatic Eyes: bilateral anicteric ENT: normal voice Neck: no mass Respiratory: decreased breath sounds Cardiovascular: regular rate, rhythm Gastrointestinal: normal bowel sounds, non tender, soft, no mass, no organomegaly Musculoskeletal: no calf tenderness Edema: no edema noted Generalized Neurologic: no new focality CRISTA SHARPE Mar 07, 2018 15:55
[2018-03-07 16:00] VITALS: BP 130/65
[2018-03-07 20:17] VITALS: BP 135/93
--- NOTE | 2018-03-07 22:38 | General Progress Note ---
Assessment/Plan Status: stable, progressing Assessment/Plan mdd anxiety cont Zoloft cont increase Ativan Klonopin 1mg qhs Subjective Date patient seen: Mar 07, 2018 Neurologic/Psychiatric: Reports: anxiety, depressed, emotional problems Allergies: Coded Allergies: No Known Allergies (Verified , 03/28/07) Subjective the pt has med seeking behavior. anxious agitated Objective Last 24 Hour Vital Signs Date Time Temp Pulse Resp B/P (MAP) Pulse Ox O2 Delivery O2 Flow Rate FiO2 03/07/18 22:14 97.2 03/07/18 21:15 97.2 03/07/18 20:17 97.2 84 20 135/93 100 Nasal Cannula 1.0 97.2 03/07/18 16:00 97.9 75 20 130/65 99 Nasal Cannula 1.0 97.9 03/07/18 12:00 98.1 87 18 131/70 98 Nasal Cannula 2.0 98.1 03/07/18 08:40 135/65 03/07/18 08:27 Nasal Cannula 2.0 28 03/07/18 08:27 81 18 Nasal Cannula 2.0 28 03/07/18 08:27 97 Nasal Cannula 2.0 28 03/07/18 08:00 97.7 82 20 128/72 99 Nasal Cannula 2.0 97.7 03/07/18 04:00 97.5 75 18 135/65 99 Nasal Cannula 2.0 97.5 03/07/18 00:00 97.6 85 20 130/70 98 Nasal Cannula 2.0 97.6 Intake and Output 03/06/18 03/07/18 19:00 07:00 Intake Total 840 ml 400 ml Balance 840 ml 400 ml Intake Oral 840 ml 400 ml # Voids 4 # Bowel Movements 1 Laboratory Tests 03/07/18 06:20: White Blood Count 12.8H, Red Blood Count 4.35, Hemoglobin 12.3, Hematocrit 39.0 , Mean Corpuscular Volume 90, Mean Corpuscular Hemoglobin 28.2, Mean Corpuscular Hemoglobin Concent 31.4L, Red Cell Distribution Width 14.3, Platelet Count 163, Mean Platelet Volume 10.5H, Neutrophils (%) (Auto) 56.5, Lymphocytes (%) (Auto) 33.9, Monocytes (%) (Auto) 7.4, Eosinophils (%) (Auto) 1.6, Basophils (%) (Auto) 0.6 Height (Feet): 5 Height (Inches): 5.00 Weight (Pounds): 189 General Appearance: WD/WN, no apparent distress, alert Neurologic: oriented x 3, responsive, depressed affect Sindy Francois M.D. Mar 07, 2018 22:38
[2018-03-08] VITALS: BP 128/67
[2018-03-08] MEDS: LORazepam 1mg tab ORAL PRN ×2 (03:57→09:57)
[2018-03-08 04:23] VITALS: BP 135/67
[2018-03-08] MEDS: oxyCODONE HCL/Acetaminophen 5/325mg ORAL PRN ×2 (07:04→13:09)
[2018-03-08] MEDS: BuPROPion XL 150mg tab ORAL SCH (07:53)
[2018-03-08] MEDS: Sertraline 100mg tab ORAL SCH (07:54)
[2018-03-08] MEDS: Hyzaar 12.5mg/50mg tab ORAL SCH (08:01)
[2018-03-08] MEDS: Heparin 5000 units/ml inj SUBQ SCH (08:05)
[2018-03-08 08:06] VITALS: BP 123/59
[2018-03-08 11:30] VITALS: BP 132/74
[2018-03-08] MEDS ORDERED: PERCOCET1 TAB ORAL (13:59)
[2018-03-08] MEDS ORDERED: MIRALAX17 GM ORAL (13:59)
[2018-03-08] MEDS ORDERED: DUONEB 0.5-3(2.53 ML HHN (13:59)
[2018-03-08] MEDS ORDERED: CLONAZEPAM1 M2 ORAL (13:59)
[2018-03-08] MEDS ORDERED: NORCO 5-325 TA1 EACH ORAL (13:59)
[2018-03-08] MEDS ORDERED: HYZAAR 50-12.51 EACH ORAL (13:59)
[2018-03-08] MEDS ORDERED: ACETAMINOPHEN325 M1 ORAL (13:59)
[2018-03-08] MEDS ORDERED: ATIVAN1 MG ORAL (13:59)
[2018-03-08] MEDS ORDERED: PREDNISONE20 MG ORAL (13:59)
--- NOTE | 2018-03-08 14:04 | Geriatric Progress Note ---
Assessment/Plan Problems: (1) COPD (chronic obstructive pulmonary disease) (2) Anxiety (3) Cervical spondylosis (4) HTN (hypertension) (5) Cervical radiculopathy (6) Costochondritis (7) COPD exacerbation (8) Hypercholesteremia (9) History of fusion of cervical spine Assessment/Plan Leukocytosis diminished on lower steroid dosing. Functionally improving. Await SNF bed availability. Taper O2 as tolerated. Discussed analgesic use and tobacco abstinence again with patient who acknowledges issues and hopes to comply. Subjective Interval Events Patient on RA. Still asks about pain meds, but after discussion admits analgesia is sufficient. Reviewed need to taper. Slightly restless but quite directable. SNF bed located, patient for d/c today. Constitutional: Reports: pain Respiratory: Denies: shortness of breath Cardiovascular: Denies: chest pain Gastrointestinal/Abdominal: Denies: abdominal pain Genitourinary: Denies: dysuria Geriatric Geriatric Last 24 Hour Vital Signs Date Time Temp Pulse Resp B/P (MAP) Pulse Ox O2 Delivery O2 Flow Rate FiO2 03/08/18 11:30 98.1 80 20 132/74 97 98.1 03/08/18 08:06 97.8 84 20 123/59 98 97.8 03/08/18 08:01 123/69 03/08/18 07:45 Nasal Cannula 2.0 28 03/08/18 07:45 98 Nasal Cannula 2.0 28 03/08/18 07:45 79 18 Nasal Cannula 2.0 28 03/08/18 07:04 98.1 03/08/18 04:23 98.1 72 20 135/67 98 Room Air 98.1 03/08/18 00:00 97.9 77 20 128/67 100 Nasal Cannula 1.0 97.9 03/07/18 22:14 97.2 03/07/18 21:15 97.2 03/07/18 20:17 97.2 84 20 135/93 100 Nasal Cannula 1.0 97.2 03/07/18 19:09 96 Nasal Cannula 2.0 28 03/07/18 19:09 Nasal Cannula 2.0 28 03/07/18 19:09 89 18 Nasal Cannula 2.0 28 03/07/18 16:00 97.9 75 20 130/65 99 Nasal Cannula 1.0 97.9 Intake and Output 03/07/18 03/08/18 19:00 07:00 Intake Total 440 ml Balance 440 ml Intake Oral 440 ml # Voids 3 Current Medications Medications (Trade) Dose Ordered Sig/Star Route PRN Reason Start Time Stop Time Status Last Admin Dose Admin Acetaminophen (Tylenol) 650 mg Q4H PRN ORAL FEVER (Temp>100.4F) 02/28/18 17:30 03/28/18 21:29 Acetaminophen (Tylenol) 650 mg Q4H PRN ORAL Mild Pain/Temp > 100.5 03/02/18 19:30 04/01/18 19:29 Acetaminophen/ Hydrocodone Bitart ([place] 5/325) 1 tab Q6H PRN ORAL pain (4-6) 03/06/18 22:30 03/13/18 22:29 Albuterol/ Ipratropium (Albuterol/ Ipratropium) 3 ml Q4HRT PRN HHN Shortness of Breath 03/04/18 16:00 03/09/18 15:59 03/06/18 12:51 Bupropion HCl (Wellbutrin XL) 150 mg DAILY ORAL 03/01/18 09:00 03/29/18 08:59 03/08/18 07:53 Clonazepam (KlonoPIN) 1 mg BEDTIME ORAL 03/04/18 21:00 03/11/18 20:59 03/07/18 21:14 Clonidine HCl (Catapres Tab) 0.1 mg Q6H PRN ORAL for SBP > 160 02/28/18 17:00 03/30/18 16:59 03/05/18 07:49 Dextrose (Dextrose 50%) 25 ml STAT PRN IV BS 60-69mg/dl 02/28/18 17:00 03/28/18 16:59 Dextrose (Dextrose 50%) 50 ml STAT PRN IV BS less than 60mg/dl 02/28/18 17:00 03/28/18 16:59 Guaifenesin (Robitussin) 200 mg Q4H PRN ORAL For Cough 03/03/18 18:45 04/02/18 18:44 03/06/18 11:01 HCTZ/Losartan Potassium (Hyzaar 50-12.5) 1 tab DAILY ORAL 03/05/18 09:00 04/04/18 08:59 03/08/18 08:01 Heparin Sodium (Porcine) (Heparin 5000 units/ml) 5,000 units EVERY 12 HOURS SUBQ 02/28/18 21:00 03/29/18 08:59 03/08/18 08:05 Ibuprofen (Motrin) 600 mg TIDPRN PRN ORAL Mild Pain (Pain Scale 1-3) 02/28/18 18:00 03/30/18 17:59 Lorazepam (Ativan) 1 mg Q6H PRN ORAL For Anxiety 03/05/18 19:13 03/12/18 19:12 03/08/18 09:57 Ondansetron HCl (Zofran) 4 mg Q6H PRN IVP Nausea & Vomiting 02/28/18 17:00 03/28/18 16:59 Oxycodone/ Acetaminophen (Percocet 5-325) 1 tab Q6HR PRN ORAL Severe Pain (Pain Scale 7-10) 03/04/18 12:00 03/11/18 11:59 03/08/18 13:09 Polyethylene Glycol (Miralax) 17 gm DAILYPRN PRN ORAL Constipation 02/28/18 17:00 03/28/18 16:59 02/28/18 23:54 Prednisone (predniSONE) 40 mg DAILY ORAL 03/06/18 09:00 04/05/18 08:59 03/08/18 07:54 Sertraline HCl (Zoloft) 200 mg DAILY ORAL 03/01/18 09:00 03/29/18 08:59 03/08/18 07:54 Height (Feet): 5 Height (Inches): 5.00 Weight (Pounds): 189 General Appearance: no apparent distress, alert, non-toxic Head: normocephalic, atraumatic Eyes: bilateral anicteric ENT: normal voice Neck: no mass Respiratory: lungs clear Cardiovascular: regular rate, rhythm Gastrointestinal: normal bowel sounds, non tender, soft, no mass, no organomegaly Musculoskeletal: no calf tenderness Edema: no edema noted Generalized Neurologic: normal gait, no new focality CRISTA SHARPE Mar 08, 2018 14:04
--- NOTE | 2018-03-08 14:48 | General Progress Note ---
Assessment/Plan Assessment/Plan mdd anxiety cont Zoloft cont increase Ativan Klonopin 1mg qhs Subjective Date patient seen: Mar 08, 2018 Neurologic/Psychiatric: Reports: anxiety, depressed, emotional problems Allergies: Coded Allergies: No Known Allergies (Verified , 03/28/07) Subjective the pt has med seeking behavior. anxious agitated Objective Last 24 Hour Vital Signs Date Time Temp Pulse Resp B/P (MAP) Pulse Ox O2 Delivery O2 Flow Rate FiO2 03/08/18 11:30 98.1 80 20 132/74 97 98.1 03/08/18 08:06 97.8 84 20 123/59 98 97.8 03/08/18 08:01 123/69 03/08/18 07:45 Nasal Cannula 2.0 28 03/08/18 07:45 98 Nasal Cannula 2.0 28 03/08/18 07:45 79 18 Nasal Cannula 2.0 28 03/08/18 07:04 98.1 03/08/18 04:23 98.1 72 20 135/67 98 Room Air 98.1 03/08/18 00:00 97.9 77 20 128/67 100 Nasal Cannula 1.0 97.9 03/07/18 22:14 97.2 03/07/18 21:15 97.2 03/07/18 20:17 97.2 84 20 135/93 100 Nasal Cannula 1.0 97.2 03/07/18 19:09 96 Nasal Cannula 2.0 28 03/07/18 19:09 Nasal Cannula 2.0 28 03/07/18 19:09 89 18 Nasal Cannula 2.0 28 03/07/18 16:00 97.9 75 20 130/65 99 Nasal Cannula 1.0 97.9 Intake and Output 03/07/18 03/08/18 19:00 07:00 Intake Total 440 ml Balance 440 ml Intake Oral 440 ml # Voids 3 Height (Feet): 5 Height (Inches): 5.00 Weight (Pounds): 189 Sindy Francois M.D. Mar 08, 2018 14:48
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
== END 2018-03-08 14:20 | DRG 871 ==
LOC: EDBD 17:12 → EMR 17:58 → 2E 18:03 → EDBEDREQ 20:13 → 4W 02-28 16:35
DX: A41.9 Sepsis, unspecified organism (principal); J18.9 Pneumonia, unspecified organism; J44.0 Chronic obstructive pulmonary disease with (acute) lower respiratory infection; J44.1 Chronic obstructive pulmonary disease with (acute) exacerbation; M48.061 Spinal stenosis, lumbar region without neurogenic claudication; Z72.0 Tobacco use; F41.9 Anxiety disorder, unspecified; M47.22 Other spondylosis with radiculopathy, cervical region; E78.00 Pure hypercholesterolemia, unspecified; F32.9 Major depressive disorder, single episode, unspecified; Z98.1 Arthrodesis status; M94.0 Chondrocostal junction syndrome [Tietze]; F60.3 Borderline personality disorder; F55.8 Abuse of other non-psychoactive substances; D72.829 Elevated white blood cell count, unspecified; I10 Essential (primary) hypertension
CPT/HCPCS: 36415; 71045; 71046; 80048; 80053; 80069; 80307; 81003; 82550; 83605; 83735; 83880; 84100; 84484; 85007; 85025; 85610; 85651; 85730; 86140; 86710; 87040; 87070; 87081; 87086; 87205; 93005; 94640; 94664; 94760; 99285; J7620

== ENCOUNTER 2018-05-09 11:05 | Emergency (ER) | payer MEDICARE, OTHER ==
[~2018-05-09] VITALS: Ht 165.1 cm; Wt 86.2 kg
[~2018-05-09 11:05] MED LIST changes: +ACETAMINOPHEN325 M1 ORAL; +BANOPHEN50 MG PO; +CLONAZEPAM1 M2 ORAL; +CRESTOR20 MG; +DUONEB 0.5-3(2.53 ML HHN; +HYZAAR 50-12.51 EACH ORAL; +KLOR-CON 1010 MEQ PO; +MIRALAX17 GM ORAL; +NORCO 5-325 TA1 EACH ORAL; +PERCOCET1 TAB ORAL; +PREDNISONE20 MG ORAL; +VITAMIN D35000 UNIT PO
[2018-05-09] MEDS ORDERED: HYDROmorphone 1mg/ml Carpuject IM ONE (11:45)
--- NOTE | 2018-05-09 12:05 | Emergency Room Report ---
History of Present Illness General Chief Complaint: Chest Pain Source: Patient Present Illness HPI Patient presents with complaints of upper chest pain reports that the pain came on while she was mopping the floor Reports that she has pain to her chest usually when she is doing something exertional denies any short of breath denies any back or flank pain denies any vomiting or diarrhea Pain has started to improve after she stopped mopping And presents for further evaluation Allergies: Coded Allergies: No Known Allergies (Verified , 03/28/07) Patient History Past Medical History: see triage record Pertinent Family History: none Last Menstrual Period: NA Now: No Reviewed Nursing Documentation: PMH: Agreed; PSxH: Agreed Nursing Documentation-PMH Past Medical History: No History, Except For Hx Cardiac Problems: Yes - CHF Hx Hypertension: Yes Hx Pacemaker: No Hx Asthma: No Hx COPD: Yes Hx Diabetes: No Hx Cancer: No Hx Gastrointestinal Problems: No Hx Dialysis: No Hx Neurological Problems: No Hx Cerebrovascular Accident: No Hx Seizures: No Review of Systems All Other Systems: negative except mentioned in HPI Physical Exam Vital Signs Date Time Temp Pulse Resp B/P (MAP) Pulse Ox O2 Delivery O2 Flow Rate FiO2 05/09/18 11:08 99.0 109 20 163/75 96 Room Air 99.0 Sp02 EP Interpretation: reviewed, normal General Appearance: well appearing, no apparent distress Head: normocephalic, atraumatic Eyes: bilateral eye PERRL, bilateral eye EOMI ENT: hearing grossly normal, normal pharynx, TMs + canals normal, uvula midline Neck: full range of motion, supple, no meningismus, no bony tend Respiratory: lungs clear, normal breath sounds, no rhonchi, no respiratory distress, no retraction, no accessory muscle use Cardiovascular #1: normal peripheral pulses, regular rate, rhythm, no edema, no gallop, no JVD, no murmur Gastrointestinal: normal bowel sounds, non tender, soft, no mass, no organomegaly, non-distended, no guarding, no hernia, no pulsatile mass, no rebound Genitourinary: no CVA tenderness Musculoskeletal: normal inspection Neurologic: oriented x3, responsive, valve grinder III-XII nml as tested, motor strength/ tone normal, sensory intact Psychiatric: mood/affect normal Skin: normal color, no rash, warm/dry, palpation normal Lymphatic: normal inspection, no adenopathy Medical Decision Making Diagnostic Impression: Primary Impression: Chest pain ER Course Patient is a fairly complex patient with multiple differential to consideration including but not limited to cardiac cardiopulmonary and vascular emergencies Patient's examination and history is not necessarily consistent with cardiac pathology EKG and chest x-ray were appropriate Patient has had fairly extensive workup recently The presentation today is also significantly improved during her stay Also reports discomfort only with movement At the time of disposition patient is asking regarding prescription for home Cures was reviewed and patient discussed that there have been multiple prescribers with opiate medication given the safe pain medicine prescribing campaign patient was discussed regarding the need for close follow-up with pain management and primary physician for continued prescriptions CURES reviewed EKG Diagnostic Results Rate: normal Rhythm: NSR ST Segments: no acute changes Rhythm Strip Diag. Results EP Interpretation: yes Rate: 76 Rhythm: NSR, no PVC's, no ectopy Chest X-Ray Diagnostic Results Chest X-Ray Diagnostic Results : Chest X-Ray Ordered: Yes # of Views/Limited/Complete: 1 View Indication: Chest Pain EP Interpretation: Yes Interpretation: no consolidation, no effusion, no pneumothorax Impression: No acute disease Electronically Signed by: Bam Smith DO Last Vital Signs Date Time Temp Pulse Resp B/P (MAP) Pulse Ox O2 Delivery O2 Flow Rate FiO2 05/09/18 11:44 99.0 05/09/18 11:08 109 20 163/75 96 Room Air Status: improved Disposition: HOME, SELF-CARE Condition: Improved Additional Instructions: Patient is provided with the discharge instructions notified to follow up with primary doctor in the next 2-3 days otherwise return to the er with any worsening symptoms. Please note that this report is being documented using [employer] technology. This can lead to erroneous entry secondary to incorrect interpretation by the dictating instrument. Bam Smith DO May 09, 2018 12:05
[2018-05-09 12:15] VITALS: BP 130/94
[2018-05-09 12:30] VITALS: BP 130/94
--- NOTE | 2018-05-09 15:40 | Diagnostic Imaging Report ---
Indication: Chest pain Technique: One view of the chest Comparison: 03/04/2018 Findings: Lungs and pleural spaces are clear. The heart size is normal. There is cervical spine fusion hardware again demonstrated Impression: No acute process
--- NOTE | 2018-05-11 16:15 | Cardiology Report ---
APPROVED REPORT EKG Measurement Heart [id number] Normal sinus rhythm Normal ECG
== END 2018-05-09 12:30 | disposition home or self-care (01) ==
LOC: EMR 12:15
DX: R07.9 Chest pain, unspecified (principal); I11.0 Hypertensive heart disease with heart failure; I50.9 Heart failure, unspecified; J44.9 Chronic obstructive pulmonary disease, unspecified
CPT/HCPCS: 71045; 93005; 96372; 99283; J1170

== ENCOUNTER 2018-09-16 11:11 | Emergency (ER) | payer MEDICARE, OTHER ==
[~2018-09-16] VITALS: Ht 165.1 cm; Wt 82.6 kg
[2018-09-16 12:35] LABS: APPEARANCE,URINE CLEAR; BILIRUBIN, URINE NEGATIVE (NEGATIVE); GLUCOSE, URINE (UA) NEGATIVE (NEGATIVE); KETONES,URINE NEGATIVE (NEGATIVE); LEUKOCYTE ESTERASE ,URINE 2+ (NEGATIVE); NITRITE,URINE NEGATIVE (NEGATIVE); PH,URINE 7 (4.5-8.0); PROTEIN,URINE 2+ (NEGATIVE); UROBILINOGEN,URINE 1 MG/DL (0.0-1.0)
[2018-09-16 12:53] LABS: COLOR,URINE YELLOW
[2018-09-16 13:10] LABS: BASOPHILS % (AUTO) 0.9 % (0.0-2.0); EOSINOPHILS % (AUTO) 1.3 % (0.0-3.0); HEMATOCRIT 43.7 % (37.0-47.0); HEMOGLOBIN 13.7 G/DL (12.0-16.0); LYMPHOCYTES % (AUTO) 32.5 % (20.0-45.0); MEAN CORPUSCULAR VOLUME 82 FL (80-99); MONOCYTES % (AUTO) 5.5 % (1.0-10.0); NEUTROPHILS % (AUTO) 59.8 % (45.0-75.0); PLATELET COUNT 190 K/UL (150-450); RED BLOOD COUNT 5.31 M/UL (4.20-5.40); WHITE BLOOD COUNT 8.8 K/UL (4.8-10.8)
--- NOTE | 2018-09-16 13:14 | Emergency Room Report ---
History of Present Illness General Chief Complaint: Lower Extremity Injury Source: Patient, Medical Record Present Illness HPI This patient has a history of spinal stenosis. She has radiculopathy. She has chronic burning sensation on both of her thighs. She states that she was admitted to the hospital was discharged 4 days ago. She states that while she was in the hospital she was receiving pain medications every 4 hours. She states that she has been using the gabapentin she was prescribed that is out of pain medications. She is requesting narcotics. When I ask her if she would be willing to try other nonnarcotics such as lidocaine patch or a lower dose narcotic such as tramadol she declined adamantly. She states that she has tried all of these other options and only wants narcotics. She states that her primary care physician was not in the office today despite her having an appointment today. She has no new symptoms. She denies trauma. She has no other complaints. Allergies: Coded Allergies: No Known Allergies (Verified , 03/28/07) Patient History Past Medical History: see triage record, HTN, COPD Social History: Denies: smoking, alcohol use, drug use Last Menstrual Period: menopause Reviewed Nursing Documentation: PMH: Agreed; PSxH: Agreed Nursing Documentation-PMH Past Medical History: No History, Except For Hx Cardiac Problems: Yes - CHF Hx Hypertension: Yes Hx Pacemaker: No Hx Asthma: No Hx COPD: Yes Hx Diabetes: No Hx Cancer: No Hx Gastrointestinal Problems: No Hx Dialysis: No Hx Neurological Problems: No Hx Cerebrovascular Accident: No Hx Seizures: No Review of Systems All Other Systems: negative except mentioned in HPI Physical Exam Vital Signs Date Time Temp Pulse Resp B/P (MAP) Pulse Ox O2 Delivery O2 Flow Rate FiO2 09/16/18 11:19 97.5 82 18 120/77 96 Room Air Sp02 EP Interpretation: reviewed, normal General Appearance: no apparent distress, alert, GCS 15, non-toxic Head: normocephalic, atraumatic Eyes: bilateral eye normal inspection, bilateral eye PERRL ENT: hearing grossly normal, normal pharynx, no angioedema, normal voice Neck: full range of motion, supple/symm/no masses Respiratory: no respiratory distress, no retraction, no accessory muscle use, speaking full sentences Rectal: deferred Musculoskeletal: back normal, gait/station normal, normal range of motion, non- tender Neurologic: alert, oriented x3, responsive, motor strength/tone normal, sensory intact, speech normal Psychiatric: judgement/insight normal, memory normal, mood/affect normal, no suicidal/homicidal ideation Skin: normal color, no rash, warm/dry, well hydrated Medical Decision Making Diagnostic Impression: Primary Impression: Radiculopathy ER Course This patient has a clinical presentation consistent with chronic radiculopathy. These are chronic symptoms and she needs to follow-up with her primary care physician. I will not be prescribing narcotic pain medications for this patient. I offered the patient nonnarcotic options such as lidocaine patch and a low-dose narcotic tramadol and she declined. The patient was given oral [place] and instructed to see her primary care physician for her chronic pain. The patient was instructed on supportive home measures. No emergency medical condition was identified. The patient was given return precautions and followup instructions. Please note that this Emergency Department Report was dictated using [employer] operator technology software, occasionally this can lead to erroneous entry secondary to interpretation by the dictation equipment. Laboratory Tests Test 09/16/18 12:29 09/16/18 12:50 Urine Color Yellow Urine Appearance Clear Urine pH 7 (4.5-8.0) Urine Specific [place] 1.015 (1.005-1.035) Urine Protein 2+ (NEGATIVE) H Urine Glucose (UA) Negative (NEGATIVE) Urine Ketones Negative (NEGATIVE) Urine Blood Negative (NEGATIVE) Urine Nitrite Negative (NEGATIVE) Urine Bilirubin Negative (NEGATIVE) Urine Urobilinogen 1 MG/DL (0.0-1.0) H Urine Leukocyte Esterase 2+ (NEGATIVE) H Urine RBC 0-2 /HPF (0 - 2) Urine WBC 5-10 /HPF (0 - 2) H Urine Squamous Epithelial Cells Few /LPF (NONE/OCC) Urine Amorphous Sediment Few /LPF (NONE) H Urine Bacteria Few /HPF (NONE) Urine Mucus Few /LPF (NONE/OCC) H White Blood Count 8.8 K/UL (4.8-10.8) Red Blood Count 5.31 M/UL (4.20-5.40) Hemoglobin 13.7 G/DL (12.0-16.0) Hematocrit 43.7 % (37.0-47.0) Mean Corpuscular Volume 82 FL (80-99) Mean Corpuscular Hemoglobin 25.8 PG (27.0-31.0) L Mean Corpuscular Hemoglobin Concent 31.4 G/DL (32.0-36.0) L Red Cell Distribution Width 15.0 % (11.6-14.8) H Platelet Count 190 K/UL (150-450) Mean Platelet Volume 9.2 FL (6.5-10.1) Neutrophils (%) (Auto) 59.8 % (45.0-75.0) Lymphocytes (%) (Auto) 32.5 % (20.0-45.0) Monocytes (%) (Auto) 5.5 % (1.0-10.0) Eosinophils (%) (Auto) 1.3 % (0.0-3.0) Basophils (%) (Auto) 0.9 % (0.0-2.0) Sodium Level 141 MMOL/L (136-145) Potassium Level 4.4 MMOL/L (3.5-5.1) Chloride Level 106 MMOL/L (98-107) Carbon Dioxide Level 25 MMOL/L (21-32) Anion Gap 10 mmol/L (5-15) Blood Urea Nitrogen 16 mg/dL (7-18) Creatinine 0.9 MG/DL (0.55-1.30) Estimate Glomerular Filtration Rate > 60 mL/min (>60) Glucose Level 115 MG/DL (74-106) H Calcium Level 9.8 MG/DL (8.5-10.1) Ionized Calcium (Measured) Pending Magnesium Level Pending Total Bilirubin Pending Aspartate Amino Transferase (AST) Pending Alanine Aminotransferase (ALT) Pending Alkaline Phosphatase Pending Total Protein Pending Albumin Pending Globulin Pending Laboratory Tests Test 09/16/18 12:29 09/16/18 12:50 Urine Color Yellow Urine Appearance Clear Urine pH 7 (4.5-8.0) Urine Specific [place] 1.015 (1.005-1.035) Urine Protein 2+ (NEGATIVE) H Urine Glucose (UA) Negative (NEGATIVE) Urine Ketones Negative (NEGATIVE) Urine Blood Negative (NEGATIVE) Urine Nitrite Negative (NEGATIVE) Urine Bilirubin Negative (NEGATIVE) Urine Urobilinogen 1 MG/DL (0.0-1.0) H Urine Leukocyte Esterase 2+ (NEGATIVE) H Urine RBC 0-2 /HPF (0 - 2) Urine WBC 5-10 /HPF (0 - 2) H Urine Squamous Epithelial Cells Few /LPF (NONE/OCC) Urine Amorphous Sediment Few /LPF (NONE) H Urine Bacteria Few /HPF (NONE) Urine Mucus Few /LPF (NONE/OCC) H White Blood Count 8.8 K/UL (4.8-10.8) Red Blood Count 5.31 M/UL (4.20-5.40) Hemoglobin 13.7 G/DL (12.0-16.0) Hematocrit 43.7 % (37.0-47.0) Mean Corpuscular Volume 82 FL (80-99) Mean Corpuscular Hemoglobin 25.8 PG (27.0-31.0) L Mean Corpuscular Hemoglobin Concent 31.4 G/DL (32.0-36.0) L Red Cell Distribution Width 15.0 % (11.6-14.8) H Platelet Count 190 K/UL (150-450) Mean Platelet Volume 9.2 FL (6.5-10.1) Neutrophils (%) (Auto) 59.8 % (45.0-75.0) Lymphocytes (%) (Auto) 32.5 % (20.0-45.0) Monocytes (%) (Auto) 5.5 % (1.0-10.0) Eosinophils (%) (Auto) 1.3 % (0.0-3.0) Basophils (%) (Auto) 0.9 % (0.0-2.0) Sodium Level Pending Potassium Level Pending Chloride Level Pending Carbon Dioxide Level Pending Blood Urea Nitrogen Pending Creatinine Pending Estimate Glomerular Filtration Rate Pending Glucose Level Pending Calcium Level Pending Ionized Calcium (Measured) Pending Magnesium Level Pending Total Bilirubin Pending Aspartate Amino Transferase (AST) Pending Alanine Aminotransferase (ALT) Pending Alkaline Phosphatase Pending Total Protein Pending Albumin Pending Globulin Pending Last Vital Signs Date Time Temp Pulse Resp B/P (MAP) Pulse Ox O2 Delivery O2 Flow Rate FiO2 09/16/18 11:19 97.5 82 18 120/77 96 Room Air Status: improved Disposition: HOME, SELF-CARE Condition: Improved Referrals: NOT CHOSEN IPA/MD,REFERRING (PCP) Additional Instructions: The Emergency Department only prescribes CONTROLLED SUBSTANCES for acute injuries. There is no evidence of an emergent condition requiring the requested medication refill, and no evidence of an acute injury. Controlled substances are very addictive and require close monitoring when being prescribed controlled substances an outpatient treatment The emergency department is not a resource to be used as outpatient followup, and therefore reserve the regular prescribing, or refill or regularly prescribed controlled substances for your PCP or your chronic pain management provider for your safety -- We urge you to follow up with your PRIMARY CARE DOCTOR who can fully evaluate you , Monitor your condition and safely prescribe any necessary medications that are controlled. Fela Parish DO Sep 16, 2018 13:14
[2018-09-16] MEDS ORDERED: Norco 5mg/325mg tab ORAL ONE (13:15)
[2018-09-16 13:17] LABS: ANION GAP 10 mmol/L (5-15); BLOOD UREA NITROGEN 16 mg/dL (7-18); CALCIUM 9.8 MG/DL (8.5-10.1); CARBON DIOXIDE 25 MMOL/L (21-32); CHLORIDE 106 MMOL/L (98-107); CREATININE 0.9 MG/DL (0.55-1.30); POTASSIUM 4.4 MMOL/L (3.5-5.1); SODIUM 141 MMOL/L (136-145)
[2018-09-16 13:22] LABS: ALANINE AMINOTRANSFERASE 23 U/L (12-78); ALBUMIN 4.1 G/DL (3.4-5.0); ALKALINE PHOSPHATASE 86 U/L (46-116); ASPARTATE AMINO TRANSFERASE 24 U/L (15-37); BILIRUBIN,TOTAL 0.5 MG/DL (0.2-1.0)
[2018-09-16] MEDS ORDERED: IBUPROFEN800 MG ORAL (13:24)
[2018-09-16 13:40] VITALS: BP 120/77
== END 2018-09-16 13:43 | disposition home or self-care (01) ==
LOC: EMR 12:16
DX: M54.10 Radiculopathy, site unspecified (principal); M79.652 Pain in left thigh; M79.651 Pain in right thigh; I11.0 Hypertensive heart disease with heart failure; I50.9 Heart failure, unspecified; J44.9 Chronic obstructive pulmonary disease, unspecified
CPT/HCPCS: 36415; 80053; 81003; 82330; 83735; 85025; 99284

== ENCOUNTER 2018-12-24 16:58 | Emergency (ER) | payer MEDICARE, OTHER ==
[~2018-12-24] VITALS: Ht 165.1 cm; Wt 85.3 kg
[~2018-12-24 16:58] MED LIST changes: +IBUPROFEN800 MG ORAL
[2018-12-24 17:30] VITALS: BP 131/69
--- NOTE | 2018-12-24 17:30 | NUR ---
ED Nurse Note: pt walked in to ER as requesting lab test which Dr. Nguyen's office could not obtaine due to pt vein is hard to be found. pt aao x4 and skin clean and intact. lab was contacted to draw blood.
[2018-12-24 18:15] VITALS: BP 135/74
--- NOTE | 2018-12-24 18:15 | NUR ---
ER DISCHARGE NOTE: Patient is cleared to be discharged per ERMD, pt is aox4, on room air, with stable vital signs. pt was given dc instructions, and the blood was drawn by lab technition. pt was able to verbalize understanding, pt id band removed. pt is able to ambulate with steady gait. pt took all belongings.
[2018-12-24 18:18] LABS: HEMATOCRIT 36.5 % (37.0-47.0); HEMOGLOBIN 11.6 G/DL (12.0-16.0); MEAN CORPUSCULAR VOLUME 91 FL (80-99); PLATELET COUNT 97 K/UL (150-450); RED BLOOD COUNT 4.01 M/UL (4.20-5.40); RED CELL DISTRIBUTION WIDTH 15.2 % (11.6-14.8); WHITE BLOOD COUNT 6.8 K/UL (4.8-10.8)
[2018-12-24 18:35] LABS: ANION GAP 7 mmol/L (5-15); BLOOD UREA NITROGEN 18 mg/dL (7-18); CALCIUM 9.4 MG/DL (8.5-10.1); CARBON DIOXIDE 26 MMOL/L (21-32); CHLORIDE 108 MMOL/L (98-107); POTASSIUM 4.2 MMOL/L (3.5-5.1); SODIUM 141 MMOL/L (136-145)
[2018-12-24 18:47] LABS: ALANINE AMINOTRANSFERASE 26 U/L (12-78); ALBUMIN 4.2 G/DL (3.4-5.0); ALBUMIN/GLOBULIN RATIO 1.3 (1.0-2.7); ALKALINE PHOSPHATASE 76 U/L (46-116); ASPARTATE AMINO TRANSFERASE 20 U/L (15-37); BILIRUBIN,TOTAL 0.3 MG/DL (0.2-1.0)
--- NOTE | 2018-12-24 19:04 | Emergency Room Report ---
History of Present Illness General Chief Complaint: General Complaint Source: Patient, Medical Record Present Illness HPI 68-year-old female presents ED for evaluation. Patient is here for lab draw. Was scheduled as outpatient by PMD Dr. Nguyen. Patient states the phlebotomy was unable to draw the labs on Wednesday, so she came here. Denies any symptoms at this time. States she feels okay. No other aggravating relieving factors. Denies any other associated symptoms Allergies: Coded Allergies: No Known Allergies (Verified , 03/28/07) Patient History Past Medical History: HTN, CHF, COPD Past Surgical History: none Pertinent Family History: none Social History: Denies: smoking, alcohol use, drug use Last Menstrual Period: N/A Now: No : 4 Para: 3 Immunizations: UTD Reviewed Nursing Documentation: PMH: Agreed; PSxH: Agreed Nursing Documentation-PMH Hx Cardiac Problems: Yes - CHF Hx Hypertension: Yes Hx Pacemaker: No Hx Asthma: No Hx COPD: Yes Hx Diabetes: No Hx Cancer: No Hx Gastrointestinal Problems: No Hx Dialysis: No Hx Neurological Problems: No Hx Cerebrovascular Accident: No Hx Seizures: No Review of Systems All Other Systems: negative except mentioned in HPI Physical Exam Vital Signs Date Time Temp Pulse Resp B/P (MAP) Pulse Ox O2 Delivery O2 Flow Rate FiO2 12/24/18 17:15 98.1 86 15 131/69 94 Room Air Sp02 EP Interpretation: reviewed, normal General Appearance: no apparent distress, alert, GCS 15, non-toxic Head: normocephalic, atraumatic Eyes: bilateral eye normal inspection, bilateral eye PERRL ENT: hearing grossly normal, normal pharynx, no angioedema, normal voice Neck: full range of motion, supple/symm/no masses Respiratory: chest non-tender, lungs clear, normal breath sounds, speaking full sentences Cardiovascular #1: regular rate, rhythm, no edema Cardiovascular #2: 2+ carotid (R), 2+ carotid (L), 2+ radial (R), 2+ radial (L) , 2+ dorsalis pedis (R), 2+ dorsalis pedis (L) Gastrointestinal: normal bowel sounds, non tender, soft, non-distended, no guarding, no rebound Rectal: deferred Genitourinary: normal inspection, no CVA tenderness Musculoskeletal: back normal, gait/station normal, normal range of motion, non- tender Neurologic: alert, oriented x3, responsive, motor strength/tone normal, sensory intact, speech normal Psychiatric: judgement/insight normal, memory normal, mood/affect normal, no suicidal/homicidal ideation Reflexes: 3+ bicep (R), 3+ bicep (L), 3+ tricep (R), 3+ tricep (L), 3+ knee (R) , 3+ knee (L) Skin: normal color, no rash, warm/dry, well hydrated Lymphatic: no adenopathy Medical Decision Making Diagnostic Impression: Primary Impression: Routine lab draw ER Course 68-year-old female presents ED for lab draw Patient placed in stretcher. I reviewed requested labs and agreed to draw these labs for the patient. Labs including CBC, CMP, vitamin D, thyroid function, coags, hemoglobin A1c Labs were drawn and pending. Patient will be discharged at this time and can be followed up by PMD Dr. Nguyen Diagnosis - routine lab draw Stable and discharged to home. Follow-up with PMD. Last Vital Signs Date Time Temp Pulse Resp B/P (MAP) Pulse Ox O2 Delivery O2 Flow Rate FiO2 12/24/18 18:15 98.0 88 19 135/74 98 Room Air Status: improved Disposition: HOME, SELF-CARE Condition: Stable Referrals: Beka Nguyen MD Patient Instructions: Medical Screening Exam Lev Alva MD Dec 24, 2018 19:04
== END 2018-12-24 18:15 | disposition home or self-care (01) ==
LOC: EMR 17:55
DX: Z00.00 Encounter for general adult medical examination without abnormal findings (principal); I11.0 Hypertensive heart disease with heart failure; I50.9 Heart failure, unspecified; J44.9 Chronic obstructive pulmonary disease, unspecified
CPT/HCPCS: 36415; 80053; 82306; 83036; 83090; 84439; 84443; 84480; 85007; 85025; 85610; 85730; 99284

== ENCOUNTER 2019-07-13 16:58 | Inpatient (IN) | payer MEDICARE, OTHER ==
[~2019-07-13] VITALS: Ht 162.6 cm; Wt 72.6 kg
[~2019-07-13 16:58] MED LIST changes: -CRESTOR20 MG; +CRESTOR20 MG ORAL
--- NOTE | 2019-07-13 17:02 | NUR ---
ED Nurse Note: PT CALLED BUT NOT IN WAITING ROOM.
--- NOTE | 2019-07-13 17:12 | Emergency Room Report ---
History of Present Illness General Chief Complaint: Abnormal Labs Source: Patient, Medical Record Present Illness HPI 69-year-old female presents with abnormal hemoglobin, 7.5, patient denies any chest pain shortness of breath, patient is mildly symptomatic, reports feeling a little fatigue, patient presents for possible blood transfusion and redraw of labs, no aggravating relieving factors recently had ORIF. Hemoglobin was checked yesterday. Severity is mild Allergies: Coded Allergies: No Known Allergies (Verified , 03/28/07) Patient History Past Medical History: see triage record Reviewed Nursing Documentation: PMH: Agreed; PSxH: Agreed Nursing Documentation-PMH Past Medical History: No History, Except For Hx Cardiac Problems: Yes - CHF Hx Hypertension: Yes Hx Pacemaker: No Hx Asthma: No Hx COPD: Yes Hx Diabetes: No Hx Cancer: No Hx Gastrointestinal Problems: No Hx Dialysis: No Hx Neurological Problems: No Hx Cerebrovascular Accident: No Hx Seizures: No Review of Systems All Other Systems: negative except mentioned in HPI Physical Exam Vital Signs Date Time Temp Pulse Resp B/P (MAP) Pulse Ox O2 Delivery O2 Flow Rate FiO2 07/13/19 17:09 97.0 73 16 152/73 (99) 95 Room Air Sp02 EP Interpretation: reviewed, normal General Appearance: well appearing, no apparent distress, alert Head: normocephalic, atraumatic Eyes: bilateral eye PERRL, bilateral eye EOMI ENT: uvula midline, moist mucus membranes Neck: supple, thyroid normal, supple/symm/no masses Respiratory: lungs clear, no respiratory distress, no retraction, no accessory muscle use Cardiovascular #1: normal peripheral pulses, regular rate, rhythm, no edema, no gallop, no murmur Gastrointestinal: non tender, soft, no guarding, no rebound Musculoskeletal: other - wound c/d/i left leg Neurologic: alert, oriented x3 Psychiatric: mood/affect normal Skin: no rash, warm/dry Medical Decision Making Diagnostic Impression: Primary Impression: Symptomatic anemia ER Course 69-year-old female presents with symptomatic anemia after operation, patient was sent for blood transfusion We will admit patient for blood transfusion Patient admitted to Dr. Jolly Laboratory Tests Test 07/13/19 18:10 White Blood Count 8.7 K/UL (4.8-10.8) Red Blood Count 2.68 M/UL (4.20-5.40) L Hemoglobin 7.7 G/DL (12.0-16.0) L Hematocrit 24.1 % (37.0-47.0) L Mean Corpuscular Volume 90 FL (80-99) Mean Corpuscular Hemoglobin 28.9 PG (27.0-31.0) Mean Corpuscular Hemoglobin Concent 32.1 G/DL (32.0-36.0) Red Cell Distribution Width 12.8 % (11.6-14.8) Platelet Count 251 K/UL (150-450) Mean Platelet Volume 6.7 FL (6.5-10.1) Neutrophils (%) (Auto) % (45.0-75.0) Lymphocytes (%) (Auto) % (20.0-45.0) Monocytes (%) (Auto) % (1.0-10.0) Eosinophils (%) (Auto) % (0.0-3.0) Basophils (%) (Auto) % (0.0-2.0) Neutrophils % (Manual) Pending Lymphocytes % (Manual) Pending Platelet Estimate Pending Platelet Morphology Pending Prothrombin Time 10.4 SEC (9.30-11.50) Prothrombin Time INR 1.0 (0.9-1.1) PTT 27 SEC (23-33) Sodium Level 140 MMOL/L (136-145) Potassium Level 3.8 MMOL/L (3.5-5.1) Chloride Level 105 MMOL/L (98-107) Carbon Dioxide Level 28 MMOL/L (21-32) Anion Gap 7 mmol/L (5-15) Blood Urea Nitrogen 12 mg/dL (7-18) Creatinine 0.7 MG/DL (0.55-1.30) Estimate Glomerular Filtration Rate > 60 mL/min (>60) Glucose Level 106 MG/DL (74-106) Calcium Level 9.1 MG/DL (8.5-10.1) Total Bilirubin 0.9 MG/DL (0.2-1.0) Aspartate Amino Transferase (AST) 22 U/L (15-37) Alanine Aminotransferase (ALT) 23 U/L (12-78) Alkaline Phosphatase 60 U/L (46-116) Total Protein 6.7 G/DL (6.4-8.2) Albumin 3.0 G/DL (3.4-5.0) L Globulin 3.7 g/dL Albumin/Globulin Ratio 0.8 (1.0-2.7) L EKG Diagnostic Results EKG Time: 17:22 EP Interpretation: NSR, rate 90, QTc 481, no acute ST elevations normal axis Rhythm Strip Diag. Results Rhythm Strip Time: 20:02 EP Interpretation: yes Rate: 99 Rhythm: NSR, no PVC's, no ectopy Disposition: ADMITTED INPATIENT Condition: Stable Atilio Carrillo MD Jul 13, 2019 17:12
[2019-07-13 17:19] VITALS: BP 130/94
--- NOTE | 2019-07-13 17:19 | NUR ---
ED Nurse Note: Pt brought in by ambulance from half-way due to abnormal labs of low Hgb of 7.5 and Hct of 26.5. Denies any bleeding. No CP or SOB. Pt is AAO x4, with nonlabored breathing. Noted surgical joanie on left leg.
--- NOTE | 2019-07-13 17:40 | NUR ---
ED Nurse Note: Multipe RNs tried to insert IV access. No IV access at this time. Dr cleaning notified.
[2019-07-13] MEDS ORDERED: Hydromorphone 0.5mg/0.5ml inj IVP ONE (18:15)
[2019-07-13 18:47] LABS: HEMATOCRIT 24.1 % (37.0-47.0); HEMOGLOBIN 7.7 G/DL (12.0-16.0); MEAN CORPUSCULAR VOLUME 90 FL (80-99); PLATELET COUNT 251 K/UL (150-450); RED BLOOD COUNT 2.68 M/UL (4.20-5.40); RED CELL DISTRIBUTION WIDTH 12.8 % (11.6-14.8); WHITE BLOOD COUNT 8.7 K/UL (4.8-10.8)
[2019-07-13 18:53] LABS: ANION GAP 7 mmol/L (5-15); BLOOD UREA NITROGEN 12 mg/dL (7-18); CALCIUM 9.1 MG/DL (8.5-10.1); CARBON DIOXIDE 28 MMOL/L (21-32); CHLORIDE 105 MMOL/L (98-107); CREATININE 0.7 MG/DL (0.55-1.30); POTASSIUM 3.8 MMOL/L (3.5-5.1); SODIUM 140 MMOL/L (136-145)
[2019-07-13 18:58] LABS: ALANINE AMINOTRANSFERASE 23 U/L (12-78); ALBUMIN/GLOBULIN RATIO 0.8 (1.0-2.7); ALKALINE PHOSPHATASE 60 U/L (46-116); ASPARTATE AMINO TRANSFERASE 22 U/L (15-37); BILIRUBIN,TOTAL 0.9 MG/DL (0.2-1.0)
--- NOTE | 2019-07-13 19:15 | NUR ---
ED Nurse Note: Received report from Genesis NAVARRO. Patient alert and oriented, verbally repsonsive. No SOB. Breathing even and unlabored. Afebrile.
--- NOTE | 2019-07-13 19:16 | NUR ---
HAND-OFF: Report given to Cameron NAVARRO.
--- NOTE | 2019-07-13 19:50 | NUR ---
ED Nurse Note: Blood picked up from blood bank.
[2019-07-13 20:05] VITALS: BP 153/69
--- NOTE | 2019-07-13 20:05 | NUR ---
ED Nurse Note: BT at bedside. Verified and witnessed by Michael NAVARRO.
[2019-07-13 20:20] VITALS: BP 150/77
[2019-07-13 21:21] VITALS: BP 145/78
--- NOTE | 2019-07-13 22:08 | NUR ---
ED Nurse Note: Report given to Basilio Schumacher from [facility].
[2019-07-13 22:20] VITALS: BP 151/68
--- NOTE | 2019-07-13 22:25 | NUR ---
TRANSFER TO FLOOR: Patient transferred to [facility]. Report given to Stephanie NAVARRO. Alert and oriented, verbally responsive. Currently on BT via right EJ, patent and infusing well. No SOB. Breathing even and unlabored. Afebrile. Belongings list done. Belongings was given to the patient. VSS.
--- NOTE | 2019-07-13 23:00 | NUR ---
NURSE NOTES: Received report from ED RNCameron. Patient is transfusing 1 unit PRBC to right EJ IV. Patient is calm with no c/o SOB. Extremities are cold and pale with radial pulses present bilaterally. C/o pain 10/10 in left anterior knee. RN reached out to primary MD for admission orders. Patient is alert and oriented x4. Bed in low and locked position with call light within reach. Will continue to monitor.
--- NOTE | 2019-07-13 23:30 | NUR ---
Infusion of 1 unit PRBC complete. Patient calm and comfortable, VSS with no s/s of transfusion reaction.
[2019-07-14] VITALS: BP 164/97
[2019-07-14] MEDS: Morphine Sulfate 2mg/ml Inj(IV/IM USE ONLY) IVP PRN ×5 (00:07→21:47)
[2019-07-14 04:00] VITALS: BP 160/74
[2019-07-14 06:02] LABS: BASOPHILS % (AUTO) 1.4 % (0.0-2.0); EOSINOPHILS % (AUTO) 1.7 % (0.0-3.0); HEMATOCRIT 30.5 % (37.0-47.0); HEMOGLOBIN 9.9 G/DL (12.0-16.0); MEAN CORPUSCULAR VOLUME 89 FL (80-99); MONOCYTES % (AUTO) 5.4 % (1.0-10.0); NEUTROPHILS % (AUTO) 69.5 % (45.0-75.0); PLATELET COUNT 211 K/UL (150-450); RED BLOOD COUNT 3.43 M/UL (4.20-5.40); RED CELL DISTRIBUTION WIDTH 13.4 % (11.6-14.8); WHITE BLOOD COUNT 9.1 K/UL (4.8-10.8)
[2019-07-14 06:25] LABS: ANION GAP 7 mmol/L (5-15); CALCIUM 9.1 MG/DL (8.5-10.1); CARBON DIOXIDE 26 MMOL/L (21-32); CHLORIDE 106 MMOL/L (98-107); CREATININE 0.8 MG/DL (0.55-1.30); POTASSIUM 4.1 MMOL/L (3.5-5.1); SODIUM 139 MMOL/L (136-145)
[2019-07-14 06:42] LABS: BLOOD UREA NITROGEN 12 mg/dL (7-18)
--- NOTE | 2019-07-14 07:50 | NUR ---
HAND-OFF: Report given to MELANIE Mathews. Patient in stable condition.
--- NOTE | 2019-07-14 07:51 | NUR ---
NURSE NOTES: Received report from MELANIE Richmond. Rounding done with outgoing nurse. Pt a/o x 4, in bed. No respiratory distress noted. Denies any pain at this time. Pt stat feeling better than yesterday. Bed in lowest position, call light within reach. Will continue to monitor.
[2019-07-14 08:00] VITALS: BP 166/77
--- NOTE | 2019-07-14 08:48 | NUR ---
NURSE NOTES: BP 166/77 checked. Denies any pain, headache. Dr. Jolly was notified and wants me to call Dr. Clemente.
--- NOTE | 2019-07-14 09:20 | NUR ---
NURSE NOTES: Called Dr. Clemente and left the message. Waiting call me back.
--- NOTE | 2019-07-14 09:38 | NUR ---
NURSE NOTES: Dr. Clemente came to the unit to see the pt. High BP was notified.
[2019-07-14 12:00] VITALS: BP 171/79
--- NOTE | 2019-07-14 12:19 | Consultation ---
History of Present Illness General Date patient seen: Jul 14, 2019 Chief Complaint: Present Illness Allergies: Coded Allergies: No Known Allergies (Verified , 03/28/07) Medication History Scheduled Aspirin* (Aspir 81*), 81 MG ORAL DAILY, (Reported) Bupropion Hcl* (Wellbutrin Xl*), 150 MG ORAL BID, (Reported) Clonazepam (Clonazepam), 1 MG ORAL BEDTIME Ibuprofen* (Motrin*), 800 MG ORAL THREE TIMES A DAY Losartan/Hydrochlorothiazide 50-12.5 Tablet* (Hyzaar 50-12.5 Tablet*), 1 TAB ORAL DAILY Prednisone* (Prednisone*), 40 MG ORAL DAILY Rosuvastatin Calcium* (Crestor*), 20 MG DAILY, (Reported) Sertraline Hcl* (Zoloft*), 200 MG ORAL DAILY, (Reported) Scheduled PRN Acetaminophen* (Acetaminophen 325MG Tablet*), 650 MG ORAL Q4H PRN Hydrocodone Bit/Acetaminophen 5-325* ([place] 5-325*), 1 TAB ORAL Q6H PRN Ipratropium/Albuterol Sulfate (DuoNeb 0.5-3(2.5)mg/3ml), 3 ML HHN Q4HRT PRN Lorazepam* (Ativan*), 1 MG ORAL Q6H PRN Oxycodone/Acetaminophen (Oxycodone-Acetaminophen 5-325), 1 TAB ORAL Q6HR PRN Polyethylene Glycol* (Miralax*), 17 GM ORAL DAILYPRN PRN Patient History Healthcare decision maker Resuscitation status Full Code Advanced Directive on File Physical Exam Last 24 Hour Vital Signs Date Time Temp Pulse Resp B/P (MAP) Pulse Ox O2 Delivery O2 Flow Rate FiO2 07/14/19 09:00 Room Air 07/14/19 08:00 98.4 87 16 166/77 (106) 99 07/14/19 04:00 98.2 88 16 160/74 (102) 98 07/14/19 01:49 Room Air 07/14/19 00:00 98.0 106 16 164/97 (119) 94 07/13/19 22:25 97.9 91 19 151/68 98 Room Air 07/13/19 22:20 97.9 91 19 151/68 98 Room Air 07/13/19 21:21 98.5 89 19 145/78 98 Room Air 07/13/19 20:20 98.1 99 20 150/77 99 Room Air 07/13/19 20:05 97.8 98 19 153/69 99 Room Air 07/13/19 18:44 97.0 07/13/19 17:19 97.0 93 16 130/94 98 Room Air 07/13/19 17:09 97.0 73 16 152/73 (99) 95 Room Air Intake and Output 07/13/19 07/14/19 18:59 06:59 Intake Total 0 ml 490 ml Output Total 100 ml Balance 0 ml 390 ml Intake Oral 0 ml Blood Product 250 ml Other 240 ml Output Urine Total 100 ml # Bowel Movements 1 Laboratory Tests Test 07/13/19 18:10 07/14/19 05:15 White Blood Count 8.7 K/UL (4.8-10.8) 9.1 K/UL (4.8-10.8) Red Blood Count 2.68 M/UL (4.20-5.40) L 3.43 M/UL (4.20-5.40) L Hemoglobin 7.7 G/DL (12.0-16.0) L 9.9 G/DL (12.0-16.0) L Hematocrit 24.1 % (37.0-47.0) L 30.5 % (37.0-47.0) L Mean Corpuscular Volume 90 FL (80-99) 89 FL (80-99) Mean Corpuscular Hemoglobin 28.9 PG (27.0-31.0) 29.0 PG (27.0-31.0) Mean Corpuscular Hemoglobin Concent 32.1 G/DL (32.0-36.0) 32.6 G/DL (32.0-36.0) Red Cell Distribution Width 12.8 % (11.6-14.8) 13.4 % (11.6-14.8) Platelet Count 251 K/UL (150-450) 211 K/UL (150-450) Mean Platelet Volume 6.7 FL (6.5-10.1) 6.9 FL (6.5-10.1) Neutrophils (%) (Auto) % (45.0-75.0) 69.5 % (45.0-75.0) Lymphocytes (%) (Auto) % (20.0-45.0) 22.0 % (20.0-45.0) Monocytes (%) (Auto) % (1.0-10.0) 5.4 % (1.0-10.0) Eosinophils (%) (Auto) % (0.0-3.0) 1.7 % (0.0-3.0) Basophils (%) (Auto) % (0.0-2.0) 1.4 % (0.0-2.0) Differential Total Cells Counted 100 Neutrophils % (Manual) 66 % (45-75) Lymphocytes % (Manual) 22 % (20-45) Monocytes % (Manual) 7 % (1-10) Eosinophils % (Manual) 2 % (0-3) Basophils % (Manual) 1 % (0-2) Band Neutrophils 2 % (0-8) Platelet Estimate Adequate Platelet Morphology Normal Polychromasia 1+ Hypochromasia 1+ Anisocytosis 1+ Prothrombin Time 10.4 SEC (9.30-11.50) Prothromb Time International Ratio 1.0 (0.9-1.1) Activated Partial Thromboplast Time 27 SEC (23-33) Sodium Level 140 MMOL/L (136-145) 139 MMOL/L (136-145) Potassium Level 3.8 MMOL/L (3.5-5.1) 4.1 MMOL/L (3.5-5.1) Chloride Level 105 MMOL/L (98-107) 106 MMOL/L (98-107) Carbon Dioxide Level 28 MMOL/L (21-32) 26 MMOL/L (21-32) Anion Gap 7 mmol/L (5-15) 7 mmol/L (5-15) Blood Urea Nitrogen 12 mg/dL (7-18) 12 mg/dL (7-18) Creatinine 0.7 MG/DL (0.55-1.30) 0.8 MG/DL (0.55-1.30) Estimat Glomerular Filtration Rate > 60 mL/min (>60) > 60 mL/min (>60) Glucose Level 106 MG/DL (74-106) 105 MG/DL (74-106) Calcium Level 9.1 MG/DL (8.5-10.1) 9.1 MG/DL (8.5-10.1) Total Bilirubin 0.9 MG/DL (0.2-1.0) Aspartate Amino Transf (AST/SGOT) 22 U/L (15-37) Alanine Aminotransferase (ALT/SGPT) 23 U/L (12-78) Alkaline Phosphatase 60 U/L (46-116) Total Protein 6.7 G/DL (6.4-8.2) Albumin 3.0 G/DL (3.4-5.0) L Globulin 3.7 g/dL Albumin/Globulin Ratio 0.8 (1.0-2.7) L Microbiology Date/Time Source Procedure Growth Status 07/13/19 21:58 Rectum Received Height (Feet): 5 Height (Inches): 4.00 Weight (Pounds): 160 Medications Current Medications Medications (Trade) Dose Ordered Sig/Star Route PRN Reason Start Time Stop Time Status Last Admin Dose Admin Acetaminophen (Tylenol) 650 mg Q4H PRN ORAL Mild Pain/Temp > 100.5 07/13/19 23:15 08/12/19 23:14 07/14/19 02:52 Morphine Sulfate (Morphine Sulfate) 2 mg Q4H PRN IVP For Pain 07/13/19 23:15 07/20/19 23:14 07/14/19 04:19 Assessment/Plan Assessment/Plan: (1) Degenerative disc disease, cervical (2) Cervical spondylosis (3) Cervical herniated disc (4) Cervical radiculopathy (5) History of fusion of cervical spine (6) Left LE pain (7) Femur fx s/p ORIF seen dictated Boyd Sanders Jul 14, 2019 12:19
--- NOTE | 2019-07-14 12:38 | Consultation ---
Consult Note Consult Note asked to eval for HTN management admitted for symptomatic Anemia Poor historian 69-year-old female presents with abnormal hemoglobin, 7.5, patient denies any chest pain shortness of breath, patient is mildly symptomatic, reports feeling a little fatigue, patient presents for possible blood transfusion and redraw of labs, no aggravating relieving factors recently had ORIF. Hemoglobin was checked yesterday. Severity is mild No Known Allergies (Verified , 03/28/07) Past Medical History: No History, Except For Hx Cardiac Problems: Yes - CHF Hx Hypertension: Yes Hx COPD: Yes Assessment/Plan Anemia HTN Psych history chronic pain cervical disc disease, s/p surgery s/p femur fx , ORIF PRN Clonidine for high BP Anemia management per Dr Ramires per Tan Tapia MD Jul 14, 2019 12:38
[2019-07-14 13:42] LABS: FERRITIN 69 NG/ML (8-388); PHOSPHORUS 3.3 MG/DL (2.5-4.9)
[2019-07-14] MEDS: Docusate 100mg cap ORAL SCH ×2 (14:01→17:09)
[2019-07-14 14:26] LABS: % IRON SATURATION 13 % (15-50); IRON 39 ug/dL (50-175); TOTAL IRON BINDING CAPACITY 310 ug/dL (250-450)
--- NOTE | 2019-07-14 14:35 | Consultation ---
History of Present Illness General Chief Complaint: Abnormal Labs Present Illness Allergies: Coded Allergies: No Known Allergies (Verified , 03/28/07) Medication History Scheduled Aspirin* (Aspir 81*), 81 MG ORAL DAILY, (Reported) Bupropion Hcl* (Wellbutrin Xl*), 150 MG ORAL BID, (Reported) Clonazepam (Clonazepam), 1 MG ORAL BEDTIME Ibuprofen* (Motrin*), 800 MG ORAL THREE TIMES A DAY Losartan/Hydrochlorothiazide 50-12.5 Tablet* (Hyzaar 50-12.5 Tablet*), 1 TAB ORAL DAILY Prednisone* (Prednisone*), 40 MG ORAL DAILY Rosuvastatin Calcium* (Crestor*), 20 MG DAILY, (Reported) Sertraline Hcl* (Zoloft*), 200 MG ORAL DAILY, (Reported) Scheduled PRN Acetaminophen* (Acetaminophen 325MG Tablet*), 650 MG ORAL Q4H PRN Hydrocodone Bit/Acetaminophen 5-325* ([place] 5-325*), 1 TAB ORAL Q6H PRN Ipratropium/Albuterol Sulfate (DuoNeb 0.5-3(2.5)mg/3ml), 3 ML HHN Q4HRT PRN Lorazepam* (Ativan*), 1 MG ORAL Q6H PRN Oxycodone/Acetaminophen (Oxycodone-Acetaminophen 5-325), 1 TAB ORAL Q6HR PRN Polyethylene Glycol* (Miralax*), 17 GM ORAL DAILYPRN PRN Patient History Healthcare decision maker Resuscitation status Full Code Advanced Directive on File Physical Exam Last 24 Hour Vital Signs Date Time Temp Pulse Resp B/P (MAP) Pulse Ox O2 Delivery O2 Flow Rate FiO2 07/14/19 14:01 83 171/79 07/14/19 14:01 171/79 07/14/19 12:00 98.4 83 16 171/79 (109) 99 07/14/19 09:00 Room Air 07/14/19 08:00 98.4 87 16 166/77 (106) 99 07/14/19 04:00 98.2 88 16 160/74 (102) 98 07/14/19 01:49 Room Air 07/14/19 00:00 98.0 106 16 164/97 (119) 94 07/13/19 22:25 97.9 91 19 151/68 98 Room Air 07/13/19 22:20 97.9 91 19 151/68 98 Room Air 07/13/19 21:21 98.5 89 19 145/78 98 Room Air 07/13/19 20:20 98.1 99 20 150/77 99 Room Air 07/13/19 20:05 97.8 98 19 153/69 99 Room Air 07/13/19 18:44 97.0 07/13/19 17:19 97.0 93 16 130/94 98 Room Air 07/13/19 17:09 97.0 73 16 152/73 (99) 95 Room Air Intake and Output 07/13/19 07/14/19 19:00 07:00 Intake Total 0 ml 490 ml Output Total 100 ml Balance 0 ml 390 ml Intake Oral 0 ml Blood Product 250 ml Other 240 ml Output Urine Total 100 ml # Bowel Movements 1 Laboratory Tests Test 07/13/19 18:10 07/14/19 05:15 07/14/19 12:50 White Blood Count 8.7 K/UL (4.8-10.8) 9.1 K/UL (4.8-10.8) Red Blood Count 2.68 M/UL (4.20-5.40) L 3.43 M/UL (4.20-5.40) L Hemoglobin 7.7 G/DL (12.0-16.0) L 9.9 G/DL (12.0-16.0) L Hematocrit 24.1 % (37.0-47.0) L 30.5 % (37.0-47.0) L Mean Corpuscular Volume 90 FL (80-99) 89 FL (80-99) Mean Corpuscular Hemoglobin 28.9 PG (27.0-31.0) 29.0 PG (27.0-31.0) Mean Corpuscular Hemoglobin Concent 32.1 G/DL (32.0-36.0) 32.6 G/DL (32.0-36.0) Red Cell Distribution Width 12.8 % (11.6-14.8) 13.4 % (11.6-14.8) Platelet Count 251 K/UL (150-450) 211 K/UL (150-450) Mean Platelet Volume 6.7 FL (6.5-10.1) 6.9 FL (6.5-10.1) Neutrophils (%) (Auto) % (45.0-75.0) 69.5 % (45.0-75.0) Lymphocytes (%) (Auto) % (20.0-45.0) 22.0 % (20.0-45.0) Monocytes (%) (Auto) % (1.0-10.0) 5.4 % (1.0-10.0) Eosinophils (%) (Auto) % (0.0-3.0) 1.7 % (0.0-3.0) Basophils (%) (Auto) % (0.0-2.0) 1.4 % (0.0-2.0) Differential Total Cells Counted 100 100 Neutrophils % (Manual) 66 % (45-75) 73 % (45-75) Lymphocytes % (Manual) 22 % (20-45) 20 % (20-45) Monocytes % (Manual) 7 % (1-10) 4 % (1-10) Eosinophils % (Manual) 2 % (0-3) 2 % (0-3) Basophils % (Manual) 1 % (0-2) 1 % (0-2) Band Neutrophils 2 % (0-8) 0 % (0-8) Platelet Estimate Adequate Adequate Platelet Morphology Normal Normal Polychromasia 1+ Hypochromasia 1+ 2+ Anisocytosis 1+ Prothrombin Time 10.4 SEC (9.30-11.50) 10.5 SEC (9.30-11.50) Prothromb Time International Ratio 1.0 (0.9-1.1) 1.0 (0.9-1.1) Activated Partial Thromboplast Time 27 SEC (23-33) Sodium Level 140 MMOL/L (136-145) 139 MMOL/L (136-145) Potassium Level 3.8 MMOL/L (3.5-5.1) 4.1 MMOL/L (3.5-5.1) Chloride Level 105 MMOL/L (98-107) 106 MMOL/L (98-107) Carbon Dioxide Level 28 MMOL/L (21-32) 26 MMOL/L (21-32) Anion Gap 7 mmol/L (5-15) 7 mmol/L (5-15) Blood Urea Nitrogen 12 mg/dL (7-18) 12 mg/dL (7-18) Creatinine 0.7 MG/DL (0.55-1.30) 0.8 MG/DL (0.55-1.30) Estimat Glomerular Filtration Rate > 60 mL/min (>60) > 60 mL/min (>60) Glucose Level 106 MG/DL (74-106) 105 MG/DL (74-106) Calcium Level 9.1 MG/DL (8.5-10.1) 9.1 MG/DL (8.5-10.1) Total Bilirubin 0.9 MG/DL (0.2-1.0) Aspartate Amino Transf (AST/SGOT) 22 U/L (15-37) Alanine Aminotransferase (ALT/SGPT) 23 U/L (12-78) Alkaline Phosphatase 60 U/L (46-116) Total Protein 6.7 G/DL (6.4-8.2) Albumin 3.0 G/DL (3.4-5.0) L Globulin 3.7 g/dL Albumin/Globulin Ratio 0.8 (1.0-2.7) L Spherocytes 1+ Reticulocyte Count 5.3 % (0.5-2.0) H Phosphorus Level 3.3 MG/DL (2.5-4.9) Magnesium Level 2.0 MG/DL (1.8-2.4) Iron Level 39 ug/dL (50-175) L Total Iron Binding Capacity 310 ug/dL (250-450) Percent Iron Saturation 13 % (15-50) L Unsaturated Iron Binding 271 ug/dL (112-346) Erythropoietin Pending Ferritin 69 NG/ML (8-388) Vitamin B12 Level 1108 PG/ML (193-986) H Folate 36.3 NG/ML (8.6-58.9) Thyroid Stimulating Hormone (TSH) 1.506 uiU/mL (0.358-3.740) Microbiology Date/Time Source Procedure Growth Status 07/13/19 21:58 Rectum Received Height (Feet): 5 Height (Inches): 4.00 Weight (Pounds): 160 Medications Current Medications Medications (Trade) Dose Ordered Sig/Star Route PRN Reason Start Time Stop Time Status Last Admin Dose Admin Acetaminophen (Tylenol) 650 mg Q4H PRN ORAL Mild Pain/Temp > 100.5 07/13/19 23:15 08/12/19 23:14 07/14/19 02:52 Acetaminophen/ Hydrocodone Bitart ([place] 10) 1 tab Q4H PRN ORAL Moderate Pain (Pain Scale 4-6) 07/14/19 13:00 07/21/19 12:59 Amlodipine Besylate (Norvasc) 10 mg DAILY ORAL 07/15/19 09:00 08/14/19 08:59 Aspirin (Ecotrin) 81 mg DAILY ORAL 07/15/19 09:00 08/14/19 08:59 Clonidine HCl (Catapres Tab) 0.1 mg Q4H PRN ORAL BP over 165 syst 07/14/19 13:00 08/13/19 12:59 07/14/19 14:01 Docusate Sodium (Colace) 100 mg THREE TIMES A DAY ORAL 07/14/19 13:00 08/13/19 12:59 07/14/19 14:01 Gabapentin (Neurontin) 400 mg BID ORAL 07/14/19 14:00 08/13/19 13:59 07/14/19 14:01 Morphine Sulfate (Morphine Sulfate) 2 mg Q4H PRN IVP Severe Pain (Pain Scale 7-10) 07/14/19 13:00 07/21/19 12:59 07/14/19 12:47 Pantoprazole (Protonix) 40 mg EVERY 12 HOURS ORAL 07/14/19 21:00 08/13/19 20:59 Assessment/Plan Assessment/Plan: Hematology Consultation EMELIA MD: Selvin Rosas RFC: Anemia eval DOS: 07/14/19 ID 69-year-old female presents with abnormal hemoglobin, 7.5, patient denies any chest pain shortness of breath, patient is mildly symptomatic, reports feeling a little fatigue, patient presents for possible blood transfusion and redraw of labs, no aggravating relieving factors recently had ORIF. Hemoglobin was checked yesterday. Severity is mild, was admitted for furthre evaluation, anemia panel ordered, is cw aid, and was given 2 units prbc Allergies: No Known Allergies (Verified , 03/28/07) Patient History Past Medical History: see triage record Reviewed Nursing Documentation: PMH: Agreed; PSxH: Agreed Nursing Documentation-PMH Past Medical History: No History, Except For Hx Cardiac Problems: Yes - CHF Hx Hypertension: Yes Hx Pacemaker: No Hx Asthma: No Hx COPD: Yes Hx Diabetes: No Hx Cancer: No Hx Gastrointestinal Problems: No Hx Dialysis: No Hx Neurological Problems: No Hx Cerebrovascular Accident: No Hx Seizures: No Review of Systems All Other Systems: negative except mentioned in HPI Physical Exam Physical Exam: Vitals: reviewed General Appearance: NAD HEENT: normocephalic, atraumatic Neck: non-tender, normal alignment Respiratory/Chest: normal breath sounds bilaterally Cardiovascular/Chest: normal peripheral pulses, normal rate Abdomen: normal bowel sounds, soft, nontender Extremities: normal range of motion Labs: reviewed Imaging: noted Assessment and Recs: # Anemia of iron deficiency, unspecified rule out gi bleed --> obtain a anemi panel, has been ordered --> will/have begun on iv iron and continue x 5 doses --> review if occult blood is + (review this to make sure +). Can consider gi eval --> hgb goal is >7, transfuse as needed --> trend CBC daily to make sure no major acute drop --> no evidence of hemolysis noted # Anemia due to recent procedure --> likely at this time risks of JOSE D outweight the benefits --> monitor closely # HTN --> sbp goal <140 --> meds reveewed # Psych history --> reviewed meds # Chronic pain --> cervical disc disease, s/p surgery --> per pain management # s/p femur fx , ORIF # Dvt ppx scds The timing of this note does not necessarily reflect the time of the patient was seen. Greatly appreciate consultation. Augie Rivas MD Jul 14, 2019 14:35
--- NOTE | 2019-07-14 15:52 | NUR ---
CASE MANAGEMENT:REVIEW 69YR OLD FEMALE FROM [facility] CC: ABNORMAL LABS SI: ANEMIA 97.0 73 16 152/73 95% ON RA H/H-7.7.24.1 IS: IV DILAUDID TRANSFUSE PRBC'S : TO MED/SURG 3 *INTERQUAL CRITERIA MET
[2019-07-14 16:00] VITALS: BP 124/52
--- NOTE | 2019-07-14 16:45 | Consultation ---
DATE OF CONSULTATION: 07/14/2019 PAIN MANAGEMENT CONSULTATION CONSULTING PHYSICIAN: Myah Tucker M.D. REFERRING PHYSICIAN: Bam Jolly M.D. PHYSICIAN OIL ANALYST: John Dutton CHIEF COMPLAINT: Neck and left lower extremity pain. HISTORY OF PRESENT ILLNESS: This is a 69-year-old female, who is being seen on the med/surg floor of [facility] for comprehensive pain management consultation. The patient is a known patient from prior admission and now admitted under the care of Dr. Jolly due to complaints of left lower extremity pain. She had a left lower extremity femur fracture status post ORIF, which she had about 4 days ago and was sent back to the nursing facility and has been transferred to [facility] due to anemia. She was started on morphine 2 mg IV every 4 hours as needed for severe pain, which the patient reports has reduced her pain from a 10 to a 0/10 at this time. I discussed with the patient about adding [place] and Neurontin. She seems to understand. She has no other complaints at this time. REVIEW OF SYSTEMS: Denies rash, fever, chills, sweating, dizziness, drowsiness, blurred vision, sore throat, or change in weight. No shortness of breath or chest pain. No nausea, vomiting, diarrhea, or blood in the stool or urine. No bowel or bladder incontinence. No dysuria. She is complaining of the left lower extremity pain. PHYSICAL EXAMINATION: GENERAL: Alert, awake, and oriented. VITAL SIGNS: Blood pressure 166/77, heart rate is 87, oxygen saturation is 99%, respiratory rate 16, and temperature 98.4 degrees Fahrenheit. LUNGS: Clear bilaterally. HEART: S1, S2 regular. ABDOMEN: Obese. EXTREMITY: The left lower extremity range of motion is decreased with surgical wound and joanie noted in the left knee and left hip. Tenderness to palpation. ASSESSMENT AND PLAN: This is a 69-year-old female with cervical degenerative disease, cervical spondylosis, cervical herniated disc, cervical radiculopathy, history of cervical fusion, left lower extremity pain, and femur fracture status post open reduction and internal fixation. The patient will be continued on the morphine. Started her on [place] 10/325 one tablet every 4 hours as needed for moderate pain and Neurontin 300 mg tablets 3 times a day. The patient was discussed with Dr. Tucker and Dr. Tucker concurred. We will follow the patient. Thank you very much for the courtesy of this consultation. Myah Tucker M.D. GEOFFREY Dutton DR: PAUL JOB#: [id number] CC:
--- NOTE | 2019-07-14 17:55 | NUR ---
NURSE NOTES: Dr. Powers came to see the pt and ordered cover the surgical site with 4x4 and tegaderm.
--- NOTE | 2019-07-14 19:00 | History and Physical Report ---
DATE OF ADMISSION: 07/13/2019 HISTORY OF PRESENT ILLNESS: The patient was admitted for severe anemia, status post recent distal femur fracture ORIF on the left. The patient's history was somewhat foggy but I was able to remind her that she did indeed have recent surgery, but initially she stated that she did not have recent surgeries. The patient also denies any rectal bleeding. Denies any hematemesis. Does have pain at the surgical site area on the left knee area where the abdullahi are still intact. Denies headaches. Denies shortness of breath. Denies cough. PAST MEDICAL HISTORY: History of COPD, anxiety, history of radiculopathy, cervical spondylosis, spinal stenosis, hypertension, cervical herniated disk, depression, costochondritis, history of anemia, history of hypercholesterolemia, osteoarthritis, GERD, chronic pain syndrome, constipation. PAST SURGICAL HISTORY: Significant for partial hysterectomy, left femur fracture repair. SOCIAL HISTORY: History of smoking. No history of alcohol or illicit drugs. Comes from a [facility]. ALLERGIES: No known allergies. MEDICATIONS: Aspirin, Wellbutrin, Klonopin, hydrochlorothiazide, Crestor, Zoloft. FAMILY HISTORY: Does have history of hypertension and heart disease in the family. SOCIAL HISTORY: As mentioned. REVIEW OF SYSTEMS: HEENT: Denies headaches. RESPIRATORY: Denies shortness of breath. Denies cough. CARDIOVASCULAR: Denies chest pain or orthopnea . GASTROINTESTINAL: Denies nausea, vomiting, and diarrhea. EXTREMITIES: Reports left knee pain. CENTRAL NERVOUS SYSTEM: Generalized weakness. No focal headache, dizziness, or blurred vision. PHYSICAL EXAMINATION: VITAL SIGNS: Temperature is 98.4, pulse 87, blood pressure 166/77. HEENT: PERRLA. NECK: Supple. CHEST: Clear to auscultation. CARDIOVASCULAR: Regular rate and rhythm. No murmurs or extra sounds. GASTROINTESTINAL: Soft. Positive bowel sounds. No organomegaly. EXTREMITIES: Abdullahi are still intact on the left knee due to recent surgery. She has generalized weakness. No hematoma around the surgical site. Surgical site looks good. There is no signs of infection, generalized weakness. Oriented x2. LABORATORY DATA: WBC of 8.7, hemoglobin 7.7, platelets 251. Sodium 140, potassium 3.8, BUN of 12, creatinine 0.7, and glucose of 106. ASSESSMENT/PLAN: 1. Anemia. 2. Recent left femur fracture repair. 3. Hypertension. 4. Anemia. 5. Chronic pain syndrome. I have asked Dr. Bryn Dr. , Dr. Rivas, Dr. Tucker see the patient to help with the management and treatment of the above-mentioned diagnoses. Bam Jolly M.D. DR: Robinson JOB#: [id number] CC:
--- NOTE | 2019-07-14 19:24 | NUR ---
HAND-OFF: Report given to MELANIE Richmond. Pt is stable.
[2019-07-14] MEDS ORDERED: RESTORIL15 MG ORAL (19:59)
[2019-07-14 20:00] VITALS: BP 133/71
--- NOTE | 2019-07-14 20:53 | NUR ---
NURSE NOTES: Received report from MELANIE Mathews. Patient is resting in bed. Requesting food and juice. Patient c/o of unresolved pain 10/10 with current meds per eMAR. GEOFFREY Sanders aware. Right EJ IV intact. surgical site and dressing c/d/i. Call light within reach. Will continue to monitor.
[2019-07-14] MEDS: Iron Sucrose 100 MG in NS 55 ML IV SCH (21:46)
[2019-07-15] MEDS: HYDROcodone/Acetamin 10/325 tab ORAL PRN (01:31)
--- NOTE | 2019-07-15 02:45 | Consultation ---
DATE OF CONSULTATION: 07/14/2019 REQUESTING PHYSICIAN: Bam Jolly M.D. CHIEF COMPLAINT: Left thigh pain. HISTORY OF PRESENT ILLNESS: The patient is a pleasant 69-year-old female, who I believe underwent open reduction and internal fixation of left femur fracture approximately 4 or 5 days ago. She subsequent was in rehabilitation center where she was complaining of some shortness of breath and fatigue; therefore was brought to the ER. She was noted to have a hemoglobin of 7.5. She is complaining of left thigh pain. Orthopedic consultation is obtained for further care and recommendation. PAST MEDICAL HISTORY: Reviewed from the intake chart. PAST SURGICAL HISTORY: Reviewed from the intake chart. MEDICATIONS: Reviewed from the intake chart. PHYSICAL EXAMINATION: GENERAL: The patient resting comfortably on exam bed. VITAL SIGNS: Afebrile. Stable vital signs. EXTREMITIES: Left leg examination shows the incision site is clean, dry, intact. The distal and proximal locking screws are intact. There is some ecchymosis along the posterior thigh area. Posterior calf is soft. Neurovascular exam is normal. ASSESSMENT: 1. Status post ORIF left femur fracture. 2. Postoperative anemia. DISCUSSION: At this point, it does not look like there is any obvious infection. The incision looks clean, dry, intact. She can be toe-touch weightbearing on the left leg until she gets repeat imaging studies. In terms of the anemia, we will continue to monitor that and consider transfusion if she is symptomatic. She is under the care of providers as relates to her non-orthopedic issues. At this point, I will consider maybe holding off on formal DVT prophylaxis with Lovenox and just consideration for sequential compression stockings and aspirin. Shamir Powers M.D. DR: Steven JOB#: [id number] CC:
[2019-07-15 04:00] VITALS: BP 117/55
[2019-07-15] MEDS: Morphine Sulfate 2mg/ml Inj(IV/IM USE ONLY) IVP PRN ×5 (05:08→22:31)
--- NOTE | 2019-07-15 07:24 | NUR ---
HAND-OFF: Report given to MELANIE Mathews. Patient in stable condition.
--- NOTE | 2019-07-15 07:25 | NUR ---
NURSE NOTES: Received report from MELANIE Richmond. Pt is a/o x 4, in bedpan. Pt c/o right knee pain as 07/13. Pain medicine will be given as MD ordered. Pt also wants to take laxatives. Will be notified to MD. Will continue to monitor.
[2019-07-15 08:00] VITALS: BP 111/59
--- NOTE | 2019-07-15 08:09 | NUR ---
NURSE NOTES: Called Dr. Jolly and left the message regarding laxatives order. Waiting call back.
--- NOTE | 2019-07-15 08:50 | Nephrology Progress Note ---
Assessment/Plan Problem List: (1) HTN (hypertension) (2) Anemia (3) Osteoarthritis Assessment Anemia HTN Psych history chronic pain cervical disc disease, s/p surgery s/p femur fx , ORIF Plan PRN Clonidine for high BP Anemia management per Dr Ramires per orders Subjective ROS Limited/Unobtainable: No Constitutional: Reports: malaise Objective Objective Last 24 Hour Vital Signs Date Time Temp Pulse Resp B/P (MAP) Pulse Ox O2 Delivery O2 Flow Rate FiO2 07/15/19 08:00 98.0 94 20 111/59 (76) 95 07/15/19 04:00 97.4 85 18 117/55 (75) 96 07/14/19 21:00 Room Air 07/14/19 20:00 98.2 85 20 133/71 (91) 98 07/14/19 16:00 97.7 80 16 124/52 (76) 98 07/14/19 14:01 83 171/79 07/14/19 14:01 171/79 07/14/19 12:00 98.4 83 16 171/79 (109) 99 07/14/19 09:00 Room Air Intake and Output 07/14/19 07/15/19 19:00 07:00 Intake Total 600 ml 480 ml Balance 600 ml 480 ml Intake Oral 600 ml 480 ml # Voids 3 2 Laboratory Tests 07/14/19 12:50: Reticulocyte Count 5.3H, Prothrombin Time 10.5, Prothromb Time International Ratio 1.0, Phosphorus Level 3.3, Magnesium Level 2.0, Iron Level 39L, Total Iron Binding Capacity 310, Percent Iron Saturation 13L, Unsaturated Iron Binding 271, Erythropoietin 65.8H, Ferritin 69, Vitamin B12 Level 1108H, Folate 36.3, Thyroid Stimulating Hormone (TSH) 1.506 Height (Feet): 5 Height (Inches): 4.00 Weight (Pounds): 160 General Appearance: no apparent distress Objective no change Tan Clemente MD Jul 15, 2019 08:50
[2019-07-15] MEDS: Aspirin EC 81mg tab ORAL SCH (08:58)
[2019-07-15] MEDS: Docusate 100mg cap ORAL SCH ×3 (08:58→17:35)
--- NOTE | 2019-07-15 09:21 | NUR ---
NURSE NOTES: Dr. Jolly called back and ordered senna 1 tab po daily, MOM 30cc po q4 prn, Dulcolax 10mg po qd prn. Order read back and will put it in.
[2019-07-15] MEDS ORDERED: Bisacodyl EC 5mg tab ORAL PRN (09:30)
[2019-07-15] MEDS ORDERED: Sennosides 8.6mg tab ORAL PRN (09:30)
[2019-07-15 09:34] LABS: BASOPHILS % (AUTO) 0.9 % (0.0-2.0); EOSINOPHILS % (AUTO) 2.4 % (0.0-3.0); HEMATOCRIT 29.8 % (37.0-47.0); HEMOGLOBIN 9.6 G/DL (12.0-16.0); LYMPHOCYTES % (AUTO) 23.2 % (20.0-45.0); MEAN CORPUSCULAR VOLUME 91 FL (80-99); MONOCYTES % (AUTO) 4.6 % (1.0-10.0); NEUTROPHILS % (AUTO) 68.9 % (45.0-75.0); PLATELET COUNT 177 K/UL (150-450); RED BLOOD COUNT 3.28 M/UL (4.20-5.40); RED CELL DISTRIBUTION WIDTH 13.7 % (11.6-14.8); WHITE BLOOD COUNT 8.9 K/UL (4.8-10.8)
[2019-07-15] MEDS: Milk of Magnesia 30ml Ud ORAL PRN (09:46)
[2019-07-15 12:00] VITALS: BP 147/60
[2019-07-15] MEDS ORDERED: NS 275ml ONE (13:43)
[2019-07-15] MEDS ORDERED: Tubing IV Secondary IV ONE (13:43)
[2019-07-15 16:00] VITALS: BP 106/49
--- NOTE | 2019-07-15 17:29 | General Progress Note ---
Assessment/Plan Problem List: (1) Anxiety ICD Codes: F41.9 - Anxiety disorder, unspecified SNOMED: 45603782 (2) COPD (chronic obstructive pulmonary disease) ICD Codes: J44.9 - Chronic obstructive pulmonary disease, unspecified SNOMED: 12244991 (3) Stenosis, spinal, lumbar ICD Codes: M48.06 - Spinal stenosis, lumbar region SNOMED: 81735156 (4) Cervical radiculopathy ICD Codes: M54.12 - Radiculopathy, cervical region SNOMED: 41622038 (5) Depression ICD Codes: F32.9 - Major depressive disorder, single episode, unspecified SNOMED: 14848761 (6) Costochondritis ICD Codes: M94.0 - Chondrocostal junction syndrome [Tietze] SNOMED: 44801598 (7) DDD (degenerative disc disease) SNOMED: 17457822 (8) Chronic pain ICD Codes: G89.29 - Other chronic pain SNOMED: 88248532 (9) GERD (gastroesophageal reflux disease) ICD Codes: K21.9 - Gastro-esophageal reflux disease without esophagitis SNOMED: 716328383 (10) Anemia ICD Codes: D64.9 - Anemia, unspecified SNOMED: 399530553 (11) HTN (hypertension) ICD Codes: I10 - Essential (primary) hypertension SNOMED: 15843941 (12) Osteoarthritis ICD Codes: M19.90 - Unspecified osteoarthritis, unspecified site SNOMED: 090839463 Status: progressing Assessment/Plan: anemia imroved transfusion per heme/onc afebrileno acute events Subjective Gastrointestinal/Abdominal: Reports: constipated Allergies: Coded Allergies: No Known Allergies (Verified , 03/28/07) Objective Last 24 Hour Vital Signs Date Time Temp Pulse Resp B/P (MAP) Pulse Ox O2 Delivery O2 Flow Rate FiO2 07/15/19 16:00 98.9 79 20 106/49 (68) 98 07/15/19 12:00 98.6 85 18 147/60 (89) 95 07/15/19 09:00 Room Air 07/15/19 09:00 94 111/59 07/15/19 08:00 98.0 94 20 111/59 (76) 95 07/15/19 04:00 97.4 85 18 117/55 (75) 96 07/14/19 21:00 Room Air 07/14/19 20:00 98.2 85 20 133/71 (91) 98 Intake and Output 07/14/19 07/15/19 19:00 07:00 Intake Total 600 ml 480 ml Balance 600 ml 480 ml Intake Oral 600 ml 480 ml # Voids 3 2 Laboratory Tests 07/15/19 06:32: White Blood Count 8.9, Red Blood Count 3.28L, Hemoglobin 9.6L, Hematocrit 29.8L , Mean Corpuscular Volume 91, Mean Corpuscular Hemoglobin 29.3, Mean Corpuscular Hemoglobin Concent 32.3, Red Cell Distribution Width 13.7, Platelet Count 177, Mean Platelet Volume 6.6, Neutrophils (%) (Auto) 68.9, Lymphocytes (% ) (Auto) 23.2, Monocytes (%) (Auto) 4.6, Eosinophils (%) (Auto) 2.4, Basophils ( %) (Auto) 0.9 Height (Feet): 5 Height (Inches): 4.00 Weight (Pounds): 160 Neck: normal alignment Cardiovascular: normal rate Respiratory/Chest: normal breath sounds Bam Jolly MD Jul 15, 2019 17:29
--- NOTE | 2019-07-15 17:34 | Cardiology Report ---
APPROVED REPORT EKG Measurement Heart [id number] TN [id number] Normal sinus rhythm Nonspecific T wave abnormality Prolonged QT Abnormal ECG
--- NOTE | 2019-07-15 18:32 | NUR ---
NURSE NOTES: Patient wanted to take morphine and took out from [facility]. One of pt 301 wants to go home and the nurse went to ICU to give the report. Pt 301 kept complaining about the discharge. Discharge process was done. I could not give morphine to this patient right away.
--- NOTE | 2019-07-15 19:12 | NUR ---
HAND-OFF: Report given to MELANIE Richmond.
--- NOTE | 2019-07-15 19:30 | NUR ---
NURSE NOTES: Received report from Lissy Mathews RN. Patient is resting is bed with bilateral SCDs applied and on. Left leg is elevated. Dressing is c/d/i. Patient c/o pain 10/10 sharp pain in left leg. Medication will be given per eMAR. Right EJ Iv is intact. Bed in low and locked position with call light within reach.
[2019-07-15 20:00] VITALS: BP 147/60
[2019-07-15] MEDS: Iron Sucrose 100 MG in NS 55 ML IV SCH (20:47)
[2019-07-16] VITALS: BP 132/55
[2019-07-16] MEDS: Milk of Magnesia 30ml Ud ORAL PRN (02:25)
[2019-07-16] MEDS: Morphine Sulfate 2mg/ml Inj(IV/IM USE ONLY) IVP PRN ×6 (02:48→22:57)
[2019-07-16 04:00] VITALS: BP 107/72
--- NOTE | 2019-07-16 07:23 | NUR ---
HAND-OFF: Report given to MELANIE Justice. Patient in stable condition.
--- NOTE | 2019-07-16 07:30 | NUR ---
NURSE NOTES: Pt lying in bed w/bed in lowest position and call light within reach. Pt A&Ox4, VSS, and in no apparent distress at this time. IV site intact/asymptomatic & H/L'd and surgical dressing C/D/I. Pt scheduled to be transferred to for positive VRE rectum; pt verbalized understanding. Will continue to monitor.
[2019-07-16 07:57] VITALS: BP 123/73
[2019-07-16] MEDS: HYDROcodone/Acetamin 10/325 tab ORAL PRN (07:58)
[2019-07-16 08:12] LABS: BASOPHILS % (AUTO) 0.6 % (0.0-2.0); EOSINOPHILS % (AUTO) 2.2 % (0.0-3.0); HEMATOCRIT 32.7 % (37.0-47.0); HEMOGLOBIN 10.8 G/DL (12.0-16.0); LYMPHOCYTES % (AUTO) 19.1 % (20.0-45.0); MEAN CORPUSCULAR VOLUME 90 FL (80-99); MONOCYTES % (AUTO) 7.2 % (1.0-10.0); NEUTROPHILS % (AUTO) 70.8 % (45.0-75.0); PLATELET COUNT 294 K/UL (150-450); RED BLOOD COUNT 3.62 M/UL (4.20-5.40); RED CELL DISTRIBUTION WIDTH 14.7 % (11.6-14.8); WHITE BLOOD COUNT 9.9 K/UL (4.8-10.8)
--- NOTE | 2019-07-16 08:14 | General Progress Note ---
Assessment/Plan Assessment/Plan: (1) Degenerative disc disease, cervical (2) Cervical spondylosis (3) Cervical herniated disc (4) Cervical radiculopathy (5) History of fusion of cervical spine (6) Left LE pain (7) Femur fx s/p ORIF We will continue Carnegie and increased Morphine to 4mg IV Q4H PRN severe pain D/w Dr. Tucker and he concurred. Subjective Date patient seen: Jul 16, 2019 Time patient seen: 07:45 - am Allergies: Coded Allergies: No Known Allergies (Verified , 03/28/07) Subjective REVIEW OF SYSTEMS: Denies rash, fever, chills, sweating, dizziness, drowsiness, blurred vision, sore throat, or change in weight. No shortness of breath or chest pain. No nausea, vomiting, diarrhea, or blood in the stool or urine. No bowel or bladder incontinence. No dysuria. She is complaining of the left lower extremity pain. SUBJECTIVE: Patient continues to c/o severe LLE pain. Reports that the pain has been tolerated on the Morphine and is requesting Carnegie in between for breakthrough pain. She was advised to continue the PT. Objective Last 24 Hour Vital Signs Date Time Temp Pulse Resp B/P (MAP) Pulse Ox O2 Delivery O2 Flow Rate FiO2 07/16/19 07:57 98.3 89 20 123/73 (90) 96 07/16/19 04:00 98.6 85 18 107/72 (84) 98 07/16/19 00:00 98.6 81 16 132/55 (80) 96 07/15/19 21:00 Room Air 07/15/19 20:00 98.8 86 18 147/60 (89) 96 07/15/19 16:00 98.9 79 20 106/49 (68) 98 07/15/19 12:00 98.6 85 18 147/60 (89) 95 07/15/19 09:00 Room Air 07/15/19 09:00 94 111/59 Intake and Output 07/15/19 07/16/19 19:00 07:00 Intake Total 400 ml 240 ml Balance 400 ml 240 ml Intake Oral 400 ml 240 ml # Voids 3 3 Laboratory Tests 07/16/19 06:35: White Blood Count [Pending], Red Blood Count [Pending], Hemoglobin [Pending], Hematocrit [Pending], Mean Corpuscular Volume [Pending], Mean Corpuscular Hemoglobin [Pending], Mean Corpuscular Hemoglobin Concent [Pending], Red Cell Distribution Width [Pending], Platelet Count [Pending], Mean Platelet Volume [ Pending], Neutrophils (%) (Auto) [Pending], Lymphocytes (%) (Auto) [Pending], Monocytes (%) (Auto) [Pending], Eosinophils (%) (Auto) [Pending], Basophils (%) (Auto) [Pending], Sodium Level [Pending], Potassium Level [Pending], Chloride Level [Pending], Carbon Dioxide Level [Pending], Blood Urea Nitrogen [Pending], Creatinine [Pending], Estimat Glomerular Filtration Rate [Pending], Glucose Level [Pending], Uric Acid [Pending], Calcium Level [Pending], Phosphorus Level [Pending], Magnesium Level [Pending], Total Bilirubin [Pending], Aspartate Amino Transf (AST/SGOT) [Pending], Alanine Aminotransferase (ALT/SGPT) [Pending] , Alkaline Phosphatase [Pending], C-Reactive Protein, Quantitative [Pending], Pro-B-Type Natriuretic Peptide [Pending], Total Protein [Pending], Albumin [ Pending], Globulin [Pending], Triglycerides Level [Pending], Cholesterol Level [ Pending], LDL Cholesterol [Pending], HDL Cholesterol [Pending], Cholesterol/HDL Ratio [Pending] Height (Feet): 5 Height (Inches): 4.00 Weight (Pounds): 160 Objective GENERAL: Alert, awake, and oriented. LUNGS: Clear bilaterally. HEART: S1, S2 regular. ABDOMEN: Obese. EXTREMITY: The left lower extremity range of motion is decreased with surgical wound and joanie noted in the left knee and left hip. Tenderness to palpation. Boyd Sanders Jul 16, 2019 08:14
[2019-07-16 08:39] LABS: ALANINE AMINOTRANSFERASE 24 U/L (12-78); ALBUMIN 3.3 G/DL (3.4-5.0); ALBUMIN/GLOBULIN RATIO 0.8 (1.0-2.7); ALKALINE PHOSPHATASE 75 U/L (46-116); ANION GAP 6 mmol/L (5-15); ASPARTATE AMINO TRANSFERASE 20 U/L (15-37); BILIRUBIN,TOTAL 0.6 MG/DL (0.2-1.0); BLOOD UREA NITROGEN 14 mg/dL (7-18); CALCIUM 9.5 MG/DL (8.5-10.1); CARBON DIOXIDE 31 MMOL/L (21-32); CHLORIDE 106 MMOL/L (98-107); CHOLESTEROL 208 MG/DL (< 200); CREATININE 0.8 MG/DL (0.55-1.30); HDL CHOLESTEROL 49 MG/DL (40-60); PHOSPHORUS 3.8 MG/DL (2.5-4.9); POTASSIUM 3.9 MMOL/L (3.5-5.1); SODIUM 143 MMOL/L (136-145); TRIGLYCERIDES 114 MG/DL (30-150)
--- NOTE | 2019-07-16 08:40 | NUR ---
NURSE NOTES: Transferred pt to 411-1 w/all belongings accounted for and w/o incident.
--- NOTE | 2019-07-16 08:40 | NUR ---
NURSE NOTES: Pt was transferred from [address] [place] [address] bed. AAO x 4. C/O of pain 05/13, despite the pain medication she got 40 min ago before transfer. Vital sign with BP 153/64, SD 92, SpO2 93, T 97.9. IV on R EJ noted to have resistance when flushing. Surgical dressing intact on L UA knee. Belongings are accounted for. Orientation on new unit was given. Bed in the lowest, locked, and alarm on. Call light within reach. Will continue to monitor
[2019-07-16] MEDS: Sennosides 8.6mg tab ORAL SCH (09:25)
[2019-07-16] MEDS: Docusate 100mg cap ORAL SCH ×3 (09:25→18:08)
[2019-07-16] MEDS: Aspirin EC 81mg tab ORAL SCH (09:25)
[2019-07-16] MEDS: Naloxegol Oxalate 25mg tab ORAL SCH (11:15)
[2019-07-16 12:00] VITALS: BP 135/81
[2019-07-16] MEDS ORDERED: HYDROcodone/Acetamin 10/325 tab ORAL PRN (13:00)
--- NOTE | 2019-07-16 13:41 | Hematology/Onc Progress Note ---
Assessment/Plan Assessment/Plan Assessment and Recs: # Anemia of iron deficiency, unspecified rule out gi bleed --> obtain a anemi panel reviewed, c/w aid --> will/have begun on iv iron and continue x 5 doses --> review if occult blood is + (review this to make sure +). Can consider gi eval --> hgb goal is >7, transfuse as needed --> trend CBC daily to make sure no major acute drop --> no evidence of hemolysis noted # Anemia due to recent procedure --> likely at this time risks of JOSE D outweight the benefits --> monitor closely --> closely monitor improvement --> on opiates # HTN --> sbp goal <140 --> meds reveewed # Psych history --> reviewed meds # Chronic pain --> cervical disc disease, s/p surgery --> per pain management recs # s/p femur fx , ORIF # Dvt ppx scds The timing of this note does not necessarily reflect the time of the patient was seen. Greatly appreciate consultation. Subjective HEENT: Denies: no symptoms, eye pain, blurred vision, tearing, double vision, ear pain, ear discharge, nose pain, nose congestion, throat pain, throat swelling, mouth pain, mouth swelling, other Cardiovascular: Denies: no symptoms, chest pain, edema, irregular heart rate, lightheadedness, palpitations, syncope, other Respiratory: Denies: no symptoms, cough, shortness of breath, SOB with excertion, SOB at rest, sputum, wheezing, other Genitourinary: Denies: no symptoms, burning, discharge, frequency, flank pain, hematuria, incontinence, pain, urgency, other Neurologic/Psychiatric: Denies: no symptoms, anxiety, depressed, emotional problems, headache, numbness, paresthesia, pre-existing deficit, seizure, tingling, tremors, weakness, other Endocrine: Denies: no symptoms, excessive sweating, flushing, intolerance to cold, intolerance to heat, increased hunger, increased thirst, increased urine, unexplained weight gain, unexplained weight loss, other Allergies: Coded Allergies: No Known Allergies (Verified , 03/28/07) Subjective 07/16: no bleeding or chills, no night sweats, no changes, labs noted Objective Objective Current Medications Medications (Trade) Dose Ordered Sig/Star Route PRN Reason Start Time Stop Time Status Last Admin Dose Admin Acetaminophen (Tylenol) 650 mg Q4H PRN ORAL Mild Pain/Temp > 100.5 07/13/19 23:15 08/12/19 23:14 07/15/19 20:48 Acetaminophen/ Hydrocodone Bitart (Cameron 10/325) 1 tab Q4H PRN ORAL Severe Breakthru Pain (>7) 07/16/19 13:00 07/21/19 12:59 Amlodipine Besylate (Norvasc) 5 mg DAILY ORAL 07/15/19 09:00 08/14/19 08:59 07/16/19 09:26 Aspirin (Ecotrin) 81 mg DAILY ORAL 07/15/19 09:00 08/14/19 08:59 07/16/19 09:25 Bisacodyl (Dulcolax) 10 mg DAILYPRN PRN ORAL Constipation 07/15/19 09:30 08/14/19 09:29 07/15/19 13:07 Clonidine HCl (Catapres Tab) 0.1 mg Q4H PRN ORAL BP over 165 syst 07/14/19 13:00 08/13/19 12:59 07/14/19 14:01 Docusate Sodium (Colace) 100 mg THREE TIMES A DAY ORAL 07/14/19 13:00 08/13/19 12:59 07/16/19 13:08 Gabapentin (Neurontin) 400 mg BID ORAL 07/14/19 14:00 08/13/19 13:59 07/16/19 09:25 Iron Sucrose 100 mg/Sodium Chloride 60 ml @ 240 mls/hr BEDTIME IV 07/14/19 21:00 07/18/19 21:14 07/15/19 20:47 Magnesium Hydroxide (Mom) 30 ml Q4H PRN ORAL Constipation 07/15/19 09:30 08/14/19 09:29 07/16/19 02:25 Morphine Sulfate (Morphine Sulfate) 4 mg Q4H PRN IVP Severe Pain (Pain Scale 7-10) 07/16/19 09:00 07/21/19 12:59 07/16/19 10:19 Naloxegol (Movantik) 12.5 mg DAILY ORAL 07/16/19 11:00 08/15/19 10:59 07/16/19 11:15 Pantoprazole (Protonix) 40 mg EVERY 12 HOURS ORAL 07/14/19 21:00 08/13/19 20:59 07/16/19 09:25 Sennosides (Senokot) 8.6 mg DAILY ORAL 07/16/19 09:00 08/14/19 09:29 07/16/19 09:25 Last 24 Hour Vital Signs Date Time Temp Pulse Resp B/P (MAP) Pulse Ox O2 Delivery O2 Flow Rate FiO2 07/16/19 12:00 96.1 92 20 135/81 (99) 95 07/16/19 09:26 92 153/64 07/16/19 09:00 Room Air 07/16/19 07:57 98.3 89 20 123/73 (90) 96 07/16/19 04:00 98.6 85 18 107/72 (84) 98 07/16/19 00:00 98.6 81 16 132/55 (80) 96 07/15/19 21:00 Room Air 07/15/19 20:00 98.8 86 18 147/60 (89) 96 07/15/19 16:00 98.9 79 20 106/49 (68) 98 07/15/19 12:00 98.6 85 18 147/60 (89) 95 07/15/19 09:00 Room Air 07/15/19 09:00 94 111/59 07/15/19 08:00 98.0 94 20 111/59 (76) 95 07/15/19 04:00 97.4 85 18 117/55 (75) 96 07/14/19 21:00 Room Air 07/14/19 20:00 98.2 85 20 133/71 (91) 98 07/14/19 16:00 97.7 80 16 124/52 (76) 98 07/14/19 14:01 83 171/79 07/14/19 14:01 171/79 Intake and Output 07/15/19 07/16/19 18:59 06:59 Intake Total 400 ml 240 ml Balance 400 ml 240 ml Intake Oral 400 ml 240 ml # Voids 3 3 Labs Test 07/13/19 18:10 07/14/19 05:15 07/14/19 12:50 07/15/19 06:32 White Blood Count 8.7 K/UL (4.8-10.8) 9.1 K/UL (4.8-10.8) 8.9 K/UL (4.8-10.8) Red Blood Count 2.68 M/UL (4.20-5.40) 3.43 M/UL (4.20-5.40) 3.28 M/UL (4.20-5.40) Hemoglobin 7.7 G/DL (12.0-16.0) 9.9 G/DL (12.0-16.0) 9.6 G/DL (12.0-16.0) Hematocrit 24.1 % (37.0-47.0) 30.5 % (37.0-47.0) 29.8 % (37.0-47.0) Mean Corpuscular Volume 90 FL (80-99) 89 FL (80-99) 91 FL (80-99) Mean Corpuscular Hemoglobin 28.9 PG (27.0-31.0) 29.0 PG (27.0-31.0) 29.3 PG (27.0-31.0) Mean Corpuscular Hemoglobin Concent 32.1 G/DL (32.0-36.0) 32.6 G/DL (32.0-36.0) 32.3 G/DL (32.0-36.0) Red Cell Distribution Width 12.8 % (11.6-14.8) 13.4 % (11.6-14.8) 13.7 % (11.6-14.8) Platelet Count 251 K/UL (150-450) 211 K/UL (150-450) 177 K/UL (150-450) Mean Platelet Volume 6.7 FL (6.5-10.1) 6.9 FL (6.5-10.1) 6.6 FL (6.5-10.1) Neutrophils (%) (Auto) % (45.0-75.0) 69.5 % (45.0-75.0) 68.9 % (45.0-75.0) Lymphocytes (%) (Auto) % (20.0-45.0) 22.0 % (20.0-45.0) 23.2 % (20.0-45.0) Monocytes (%) (Auto) % (1.0-10.0) 5.4 % (1.0-10.0) 4.6 % (1.0-10.0) Eosinophils (%) (Auto) % (0.0-3.0) 1.7 % (0.0-3.0) 2.4 % (0.0-3.0) Basophils (%) (Auto) % (0.0-2.0) 1.4 % (0.0-2.0) 0.9 % (0.0-2.0) Differential Total Cells Counted 100 100 Neutrophils % (Manual) 66 % (45-75) 73 % (45-75) Lymphocytes % (Manual) 22 % (20-45) 20 % (20-45) Monocytes % (Manual) 7 % (1-10) 4 % (1-10) Eosinophils % (Manual) 2 % (0-3) 2 % (0-3) Basophils % (Manual) 1 % (0-2) 1 % (0-2) Band Neutrophils 2 % (0-8) 0 % (0-8) Platelet Estimate Adequate Adequate Platelet Morphology Normal Normal Polychromasia 1+ Hypochromasia 1+ 2+ Anisocytosis 1+ Prothrombin Time 10.4 SEC (9.30-11.50) 10.5 SEC (9.30-11.50) Prothromb Time International Ratio 1.0 (0.9-1.1) 1.0 (0.9-1.1) Activated Partial Thromboplast Time 27 SEC (23-33) Sodium Level 140 MMOL/L (136-145) 139 MMOL/L (136-145) Potassium Level 3.8 MMOL/L (3.5-5.1) 4.1 MMOL/L (3.5-5.1) Chloride Level 105 MMOL/L (98-107) 106 MMOL/L (98-107) Carbon Dioxide Level 28 MMOL/L (21-32) 26 MMOL/L (21-32) Anion Gap 7 mmol/L (5-15) 7 mmol/L (5-15) Blood Urea Nitrogen 12 mg/dL (7-18) 12 mg/dL (7-18) Creatinine 0.7 MG/DL (0.55-1.30) 0.8 MG/DL (0.55-1.30) Estimat Glomerular Filtration Rate > 60 mL/min (>60) > 60 mL/min (>60) Glucose Level 106 MG/DL (74-106) 105 MG/DL (74-106) Calcium Level 9.1 MG/DL (8.5-10.1) 9.1 MG/DL (8.5-10.1) Total Bilirubin 0.9 MG/DL (0.2-1.0) Aspartate Amino Transf (AST/SGOT) 22 U/L (15-37) Alanine Aminotransferase (ALT/SGPT) 23 U/L (12-78) Alkaline Phosphatase 60 U/L (46-116) Total Protein 6.7 G/DL (6.4-8.2) Albumin 3.0 G/DL (3.4-5.0) Globulin 3.7 g/dL Albumin/Globulin Ratio 0.8 (1.0-2.7) Spherocytes 1+ Reticulocyte Count 5.3 % (0.5-2.0) Phosphorus Level 3.3 MG/DL (2.5-4.9) Magnesium Level 2.0 MG/DL (1.8-2.4) Iron Level 39 ug/dL (50-175) Total Iron Binding Capacity 310 ug/dL (250-450) Percent Iron Saturation 13 % (15-50) Unsaturated Iron Binding 271 ug/dL (112-346) Erythropoietin 65.8 mIU/mL (2.6-18.5) Ferritin 69 NG/ML (8-388) Vitamin B12 Level 1108 PG/ML (193-986) Folate 36.3 NG/ML (8.6-58.9) Thyroid Stimulating Hormone (TSH) 1.506 uiU/mL (0.358-3.740) Test 07/16/19 06:35 White Blood Count 9.9 K/UL (4.8-10.8) Red Blood Count 3.62 M/UL (4.20-5.40) Hemoglobin 10.8 G/DL (12.0-16.0) Hematocrit 32.7 % (37.0-47.0) Mean Corpuscular Volume 90 FL (80-99) Mean Corpuscular Hemoglobin 29.7 PG (27.0-31.0) Mean Corpuscular Hemoglobin Concent 32.9 G/DL (32.0-36.0) Red Cell Distribution Width 14.7 % (11.6-14.8) Platelet Count 294 K/UL (150-450) Mean Platelet Volume 6.9 FL (6.5-10.1) Neutrophils (%) (Auto) 70.8 % (45.0-75.0) Lymphocytes (%) (Auto) 19.1 % (20.0-45.0) Monocytes (%) (Auto) 7.2 % (1.0-10.0) Eosinophils (%) (Auto) 2.2 % (0.0-3.0) Basophils (%) (Auto) 0.6 % (0.0-2.0) Sodium Level 143 MMOL/L (136-145) Potassium Level 3.9 MMOL/L (3.5-5.1) Chloride Level 106 MMOL/L (98-107) Carbon Dioxide Level 31 MMOL/L (21-32) Anion Gap 6 mmol/L (5-15) Blood Urea Nitrogen 14 mg/dL (7-18) Creatinine 0.8 MG/DL (0.55-1.30) Estimat Glomerular Filtration Rate > 60 mL/min (>60) Glucose Level 107 MG/DL (74-106) Uric Acid 4.4 MG/DL (2.6-7.2) Calcium Level 9.5 MG/DL (8.5-10.1) Phosphorus Level 3.8 MG/DL (2.5-4.9) Magnesium Level 2.3 MG/DL (1.8-2.4) Total Bilirubin 0.6 MG/DL (0.2-1.0) Aspartate Amino Transf (AST/SGOT) 20 U/L (15-37) Alanine Aminotransferase (ALT/SGPT) 24 U/L (12-78) Alkaline Phosphatase 75 U/L (46-116) C-Reactive Protein, Quantitative 7.8 mg/dL (0.00-0.90) Pro-B-Type Natriuretic Peptide 133 pg/mL (0-125) Total Protein 7.3 G/DL (6.4-8.2) Albumin 3.3 G/DL (3.4-5.0) Globulin 4.0 g/dL Albumin/Globulin Ratio 0.8 (1.0-2.7) Triglycerides Level 114 MG/DL (30-150) Cholesterol Level 208 MG/DL (< 200) LDL Cholesterol 130 mg/dL (<100) HDL Cholesterol 49 MG/DL (40-60) Cholesterol/HDL Ratio 4.2 (3.3-4.4) Height (Feet): 5 Height (Inches): 4.00 Weight (Pounds): 160 Objective Physical Exam: Vitals: reviewed General Appearance: NAD HEENT: normocephalic, atraumatic Neck: non-tender, normal alignment Respiratory/Chest: normal breath sounds bilaterally Cardiovascular/Chest: normal peripheral pulses, normal rate Abdomen: normal bowel sounds, soft, nontender Extremities: normal range of motion Augie Rivas MD Jul 16, 2019 13:41
[2019-07-16 16:00] VITALS: BP 137/80
[2019-07-16] MEDS ORDERED: Tubing IV Secondary IV ONE (16:33)
--- NOTE | 2019-07-16 19:12 | NUR ---
HAND-OFF: Report given to MELANIE Romeo.
[2019-07-16 20:00] VITALS: BP 140/83
--- NOTE | 2019-07-16 20:00 | NUR ---
NURSE NOTES: Received patient awake in bed, no s/s of acute distress, able to verbalize needs. EJ access noted, patent but positional, patient understands that she has to extend her neck during IV medication administration. Bed low and locked, belongings within reach. Surgical dressing dry and intact.
[2019-07-16] MEDS: Iron Sucrose 100 MG in NS 55 ML IV SCH (20:35)
--- NOTE | 2019-07-16 21:25 | General Progress Note ---
Assessment/Plan Problem List: (1) Anxiety ICD Codes: F41.9 - Anxiety disorder, unspecified SNOMED: 60802125 (2) COPD (chronic obstructive pulmonary disease) ICD Codes: J44.9 - Chronic obstructive pulmonary disease, unspecified SNOMED: 87453524 (3) Stenosis, spinal, lumbar ICD Codes: M48.06 - Spinal stenosis, lumbar region SNOMED: 51126312 (4) Cervical radiculopathy ICD Codes: M54.12 - Radiculopathy, cervical region SNOMED: 50021747 (5) Depression ICD Codes: F32.9 - Major depressive disorder, single episode, unspecified SNOMED: 23816350 (6) Costochondritis ICD Codes: M94.0 - Chondrocostal junction syndrome [Tietze] SNOMED: 21762357 (7) DDD (degenerative disc disease) SNOMED: 14544942 (8) Chronic pain ICD Codes: G89.29 - Other chronic pain SNOMED: 38768248 (9) GERD (gastroesophageal reflux disease) ICD Codes: K21.9 - Gastro-esophageal reflux disease without esophagitis SNOMED: 957762966 (10) Anemia ICD Codes: D64.9 - Anemia, unspecified SNOMED: 154406087 (11) HTN (hypertension) ICD Codes: I10 - Essential (primary) hypertension SNOMED: 07333067 (12) Osteoarthritis ICD Codes: M19.90 - Unspecified osteoarthritis, unspecified site SNOMED: 810478008 Status: progressing Assessment/Plan: anemia imroved transfusion per heme/onc check h/h moniter for bleeding Subjective ROS Limited/Unobtainable: Yes Allergies: Coded Allergies: No Known Allergies (Verified , 03/28/07) Objective Last 24 Hour Vital Signs Date Time Temp Pulse Resp B/P (MAP) Pulse Ox O2 Delivery O2 Flow Rate FiO2 07/16/19 16:00 97.4 90 19 137/80 (99) 96 07/16/19 12:00 96.1 92 20 135/81 (99) 95 07/16/19 09:26 92 153/64 07/16/19 09:00 Room Air 07/16/19 07:57 98.3 89 20 123/73 (90) 96 07/16/19 04:00 98.6 85 18 107/72 (84) 98 07/16/19 00:00 98.6 81 16 132/55 (80) 96 Intake and Output 07/15/19 07/16/19 19:00 07:00 Intake Total 400 ml 240 ml Balance 400 ml 240 ml Intake Oral 400 ml 240 ml # Voids 3 3 Laboratory Tests 07/16/19 06:35: White Blood Count 9.9, Red Blood Count 3.62L, Hemoglobin 10.8L, Hematocrit 32.7L , Mean Corpuscular Volume 90, Mean Corpuscular Hemoglobin 29.7, Mean Corpuscular Hemoglobin Concent 32.9, Red Cell Distribution Width 14.7, Platelet Count 294#, Mean Platelet Volume 6.9, Neutrophils (%) (Auto) 70.8, Lymphocytes ( %) (Auto) 19.1L, Monocytes (%) (Auto) 7.2, Eosinophils (%) (Auto) 2.2, Basophils (%) (Auto) 0.6, Sodium Level 143, Potassium Level 3.9, Chloride Level 106, Carbon Dioxide Level 31, Anion Gap 6, Blood Urea Nitrogen 14, Creatinine 0.8, Estimat Glomerular Filtration Rate > 60, Glucose Level 107H, Uric Acid 4.4 , Calcium Level 9.5, Phosphorus Level 3.8, Magnesium Level 2.3, Total Bilirubin 0.6, Aspartate Amino Transf (AST/SGOT) 20, Alanine Aminotransferase (ALT/SGPT) 24, Alkaline Phosphatase 75, C-Reactive Protein, Quantitative 7.8H, Pro-B-Type Natriuretic Peptide 133H, Total Protein 7.3, Albumin 3.3L, Globulin 4.0, Albumin /Globulin Ratio 0.8L, Triglycerides Level 114, Cholesterol Level 208H, LDL Cholesterol 130H, HDL Cholesterol 49, Cholesterol/HDL Ratio 4.2 Height (Feet): 5 Height (Inches): 4.00 Weight (Pounds): 160 Cardiovascular: regular rhythm Respiratory/Chest: lungs clear Abdomen: soft Bam Jolly MD Jul 16, 2019 21:25
[2019-07-17] VITALS (7 sets, daily range): BP systolic 133–148; BP diastolic 59–77
[2019-07-17] MEDS: Morphine Sulfate 2mg/ml Inj(IV/IM USE ONLY) IVP PRN ×4 (03:05→17:33)
--- NOTE | 2019-07-17 07:13 | NUR ---
HAND-OFF: Report given to MELANIE Cabral.
--- NOTE | 2019-07-17 08:26 | NUR ---
NURSE NOTES: Patient is awake and alert,r espirations unlabored.RT EJ intact and saline lock left leg .knee dressing clean intact,pedal pulses strong,no complaint of numbness or tingling.Patient has purwick catheter with sharona color urine noted.bed alarm is on,call light within reach.
[2019-07-17] MEDS: Aspirin EC 81mg tab ORAL SCH (09:10)
[2019-07-17] MEDS: Naloxegol Oxalate 25mg tab ORAL SCH (09:11)
[2019-07-17] MEDS: Sennosides 8.6mg tab ORAL SCH (09:12)
[2019-07-17] MEDS: Docusate 100mg cap ORAL SCH ×3 (09:12→18:00)
--- NOTE | 2019-07-17 09:20 | Hematology/Onc Progress Note ---
Assessment/Plan Assessment/Plan Assessment and Recs: # Anemia of iron deficiency, unspecified rule out gi bleed --> obtain a anemi panel reviewed, c/w aid --> will/have begun on iv iron and continue x 5 doses --> review if occult blood is + (review this to make sure +). Can consider gi eval --> hgb goal is >7, transfuse as needed --> trend CBC daily to make sure no major acute drop --> no evidence of hemolysis noted --> hgb trend 7.7-->9.9-->10.8 # Anemia due to recent procedure --> likely at this time risks of JOSE D outweight the benefits --> monitor closely --> closely monitor improvement --> on opiates # HTN --> sbp goal <140 --> meds reveewed # Psych history --> reviewed meds # Chronic pain --> cervical disc disease, s/p surgery --> per pain management recs # s/p femur fx , ORIF # Dvt ppx scds The timing of this note does not necessarily reflect the time of the patient was seen. Greatly appreciate consultation. Subjective Cardiovascular: Denies: no symptoms, chest pain, edema, irregular heart rate, lightheadedness, palpitations, syncope, other Respiratory: Denies: no symptoms, cough, shortness of breath, SOB with excertion, SOB at rest, sputum, wheezing, other Gastrointestinal/Abdominal: Denies: no symptoms, abdomen distended, abdominal pain, black stools, tarry stools, blood in stool, constipated, diarrhea, difficulty swallowing, nausea, poor appetite, poor fluid intake, rectal bleeding , vomiting, other Neurologic/Psychiatric: Denies: no symptoms, anxiety, depressed, emotional problems, headache, numbness, paresthesia, pre-existing deficit, seizure, tingling, tremors, weakness, other Endocrine: Denies: no symptoms, excessive sweating, flushing, intolerance to cold, intolerance to heat, increased hunger, increased thirst, increased urine, unexplained weight gain, unexplained weight loss, other Allergies: Coded Allergies: No Known Allergies (Verified , 03/28/07) Subjective 07/16: no bleeding or chills, no night sweats, no changes, labs noted 07/17: no bleeding, ferritin reviewed, labs noted, no f/c Objective Objective Current Medications Medications (Trade) Dose Ordered Sig/Star Route PRN Reason Start Time Stop Time Status Last Admin Dose Admin Acetaminophen (Tylenol) 650 mg Q4H PRN ORAL Mild Pain/Temp > 100.5 07/13/19 23:15 08/12/19 23:14 07/15/19 20:48 Acetaminophen/ Hydrocodone Bitart (Largo 10/325) 1 tab Q4H PRN ORAL Severe Breakthru Pain (>7) 07/16/19 13:00 07/21/19 12:59 Amlodipine Besylate (Norvasc) 5 mg DAILY ORAL 07/15/19 09:00 08/14/19 08:59 07/16/19 09:26 Aspirin (Ecotrin) 81 mg DAILY ORAL 07/15/19 09:00 08/14/19 08:59 07/16/19 09:25 Bisacodyl (Dulcolax) 10 mg DAILYPRN PRN ORAL Constipation 07/15/19 09:30 08/14/19 09:29 07/15/19 13:07 Clonidine HCl (Catapres Tab) 0.1 mg Q4H PRN ORAL BP over 165 syst 07/14/19 13:00 08/13/19 12:59 07/14/19 14:01 Docusate Sodium (Colace) 100 mg THREE TIMES A DAY ORAL 07/14/19 13:00 08/13/19 12:59 07/16/19 18:08 Gabapentin (Neurontin) 400 mg BID ORAL 07/14/19 14:00 08/13/19 13:59 07/16/19 18:08 Iron Sucrose 100 mg/Sodium Chloride 60 ml @ 240 mls/hr BEDTIME IV 07/14/19 21:00 07/18/19 21:14 07/16/19 20:35 Magnesium Hydroxide (Mom) 30 ml Q4H PRN ORAL Constipation 07/15/19 09:30 08/14/19 09:29 07/16/19 02:25 Morphine Sulfate (Morphine Sulfate) 4 mg Q4H PRN IVP Severe Pain (Pain Scale 7-10) 07/16/19 09:00 07/21/19 12:59 07/17/19 03:05 Naloxegol (Movantik) 12.5 mg DAILY ORAL 07/16/19 11:00 08/15/19 10:59 07/16/19 11:15 Pantoprazole (Protonix) 40 mg EVERY 12 HOURS ORAL 07/14/19 21:00 08/13/19 20:59 07/16/19 20:35 Sennosides (Senokot) 8.6 mg DAILY ORAL 07/16/19 09:00 08/14/19 09:29 07/16/19 09:25 Last 24 Hour Vital Signs Date Time Temp Pulse Resp B/P (MAP) Pulse Ox O2 Delivery O2 Flow Rate FiO2 07/17/19 09:04 85 133/59 (83) 07/17/19 04:00 98.5 84 18 134/61 (85) 97 07/17/19 03:35 98.2 07/17/19 00:00 98.2 83 18 141/63 (89) 96 07/16/19 22:04 Room Air 07/16/19 20:00 97.7 83 18 140/83 (102) 96 07/16/19 16:00 97.4 90 19 137/80 (99) 96 07/16/19 12:00 96.1 92 20 135/81 (99) 95 07/16/19 09:26 92 153/64 07/16/19 09:00 Room Air 07/16/19 07:57 98.3 89 20 123/73 (90) 96 07/16/19 04:00 98.6 85 18 107/72 (84) 98 07/16/19 00:00 98.6 81 16 132/55 (80) 96 07/15/19 21:00 Room Air 07/15/19 20:00 98.8 86 18 147/60 (89) 96 07/15/19 16:00 98.9 79 20 106/49 (68) 98 07/15/19 12:00 98.6 85 18 147/60 (89) 95 Intake and Output 07/16/19 07/17/19 19:00 07:00 Intake Total 800 ml Output Total 300 ml Balance 800 ml -300 ml Intake Oral 800 ml Output Urine Total 300 ml # Bowel Movements 2 Labs Test 07/14/19 12:50 07/15/19 06:32 07/16/19 06:35 Reticulocyte Count 5.3 % (0.5-2.0) Prothrombin Time 10.5 SEC (9.30-11.50) Prothromb Time International Ratio 1.0 (0.9-1.1) Phosphorus Level 3.3 MG/DL (2.5-4.9) 3.8 MG/DL (2.5-4.9) Magnesium Level 2.0 MG/DL (1.8-2.4) 2.3 MG/DL (1.8-2.4) Iron Level 39 ug/dL (50-175) Total Iron Binding Capacity 310 ug/dL (250-450) Percent Iron Saturation 13 % (15-50) Unsaturated Iron Binding 271 ug/dL (112-346) Erythropoietin 65.8 mIU/mL (2.6-18.5) Ferritin 69 NG/ML (8-388) Vitamin B12 Level 1108 PG/ML (193-986) Folate 36.3 NG/ML (8.6-58.9) Thyroid Stimulating Hormone (TSH) 1.506 uiU/mL (0.358-3.740) White Blood Count 8.9 K/UL (4.8-10.8) 9.9 K/UL (4.8-10.8) Red Blood Count 3.28 M/UL (4.20-5.40) 3.62 M/UL (4.20-5.40) Hemoglobin 9.6 G/DL (12.0-16.0) 10.8 G/DL (12.0-16.0) Hematocrit 29.8 % (37.0-47.0) 32.7 % (37.0-47.0) Mean Corpuscular Volume 91 FL (80-99) 90 FL (80-99) Mean Corpuscular Hemoglobin 29.3 PG (27.0-31.0) 29.7 PG (27.0-31.0) Mean Corpuscular Hemoglobin Concent 32.3 G/DL (32.0-36.0) 32.9 G/DL (32.0-36.0) Red Cell Distribution Width 13.7 % (11.6-14.8) 14.7 % (11.6-14.8) Platelet Count 177 K/UL (150-450) 294 K/UL (150-450) Mean Platelet Volume 6.6 FL (6.5-10.1) 6.9 FL (6.5-10.1) Neutrophils (%) (Auto) 68.9 % (45.0-75.0) 70.8 % (45.0-75.0) Lymphocytes (%) (Auto) 23.2 % (20.0-45.0) 19.1 % (20.0-45.0) Monocytes (%) (Auto) 4.6 % (1.0-10.0) 7.2 % (1.0-10.0) Eosinophils (%) (Auto) 2.4 % (0.0-3.0) 2.2 % (0.0-3.0) Basophils (%) (Auto) 0.9 % (0.0-2.0) 0.6 % (0.0-2.0) Sodium Level 143 MMOL/L (136-145) Potassium Level 3.9 MMOL/L (3.5-5.1) Chloride Level 106 MMOL/L (98-107) Carbon Dioxide Level 31 MMOL/L (21-32) Anion Gap 6 mmol/L (5-15) Blood Urea Nitrogen 14 mg/dL (7-18) Creatinine 0.8 MG/DL (0.55-1.30) Estimat Glomerular Filtration Rate > 60 mL/min (>60) Glucose Level 107 MG/DL (74-106) Uric Acid 4.4 MG/DL (2.6-7.2) Calcium Level 9.5 MG/DL (8.5-10.1) Total Bilirubin 0.6 MG/DL (0.2-1.0) Aspartate Amino Transf (AST/SGOT) 20 U/L (15-37) Alanine Aminotransferase (ALT/SGPT) 24 U/L (12-78) Alkaline Phosphatase 75 U/L (46-116) C-Reactive Protein, Quantitative 7.8 mg/dL (0.00-0.90) Pro-B-Type Natriuretic Peptide 133 pg/mL (0-125) Total Protein 7.3 G/DL (6.4-8.2) Albumin 3.3 G/DL (3.4-5.0) Globulin 4.0 g/dL Albumin/Globulin Ratio 0.8 (1.0-2.7) Triglycerides Level 114 MG/DL (30-150) Cholesterol Level 208 MG/DL (< 200) LDL Cholesterol 130 mg/dL (<100) HDL Cholesterol 49 MG/DL (40-60) Cholesterol/HDL Ratio 4.2 (3.3-4.4) Height (Feet): 5 Height (Inches): 4.00 Weight (Pounds): 160 Objective Physical Exam: Vitals: reviewed General Appearance: NAD HEENT: normocephalic, atraumatic Neck: non-tender, normal alignment Respiratory/Chest: normal breath sounds bilaterally Cardiovascular/Chest: normal peripheral pulses, normal rate Abdomen: normal bowel sounds, soft, nontender Extremities: normal range of motion Augie Rivas MD Jul 17, 2019 09:20
--- NOTE | 2019-07-17 10:36 | Nephrology Progress Note ---
Assessment/Plan Problem List: (1) HTN (hypertension) (2) Anemia (3) Osteoarthritis Assessment Anemia HTN Psych history chronic pain cervical disc disease, s/p surgery s/p femur fx , ORIF Plan PRN Clonidine for high BP Anemia management per Dr Ramires per orders Subjective ROS Limited/Unobtainable: No Objective Objective Last 24 Hour Vital Signs Date Time Temp Pulse Resp B/P (MAP) Pulse Ox O2 Delivery O2 Flow Rate FiO2 07/17/19 09:12 85 133/59 07/17/19 09:04 85 133/59 (83) 07/17/19 04:00 98.5 84 18 134/61 (85) 97 07/17/19 03:35 98.2 07/17/19 00:00 98.2 83 18 141/63 (89) 96 07/16/19 22:04 Room Air 07/16/19 20:00 97.7 83 18 140/83 (102) 96 07/16/19 16:00 97.4 90 19 137/80 (99) 96 07/16/19 12:00 96.1 92 20 135/81 (99) 95 Intake and Output 07/16/19 07/17/19 19:00 07:00 Intake Total 800 ml Output Total 300 ml Balance 800 ml -300 ml Intake Oral 800 ml Output Urine Total 300 ml # Bowel Movements 2 Height (Feet): 5 Height (Inches): 4.00 Weight (Pounds): 160 General Appearance: no apparent distress Objective no change Tan Clemente MD Jul 17, 2019 10:36
--- NOTE | 2019-07-17 15:36 | NUR ---
DISCHARGE PLANNING DISCHARGE ORDER NOTED Patient has been accepted to; [facility] [address] [place] [address] Bed: 104-A Skilled [phone] Nurse to Nurse report [facility] ETA for transportation: 17:30
--- NOTE | 2019-07-17 17:25 | NUR ---
NURSE NOTES: Report given to Facundo NAVARRO at [facility].
--- NOTE | 2019-07-17 19:30 | NUR ---
NURSE NOTES: [facility] here to transfer patient to [facility].IV taken out of EJ by oncoming nurse Jose Juan,[facility] hospital band removed,patient has her personal belongings.Dressing to the left leg remains intact,pedal pulses remains strong.Patient has her cell phone and take away man.
[2019-07-17] MEDS ORDERED: D5 1/2NS 1000ml IV ONE (19:59)
--- NOTE | 2019-07-17 20:02 | General Progress Note ---
Assessment/Plan Problem List: (1) Anxiety ICD Codes: F41.9 - Anxiety disorder, unspecified SNOMED: 23370679 (2) COPD (chronic obstructive pulmonary disease) ICD Codes: J44.9 - Chronic obstructive pulmonary disease, unspecified SNOMED: 27080495 (3) Stenosis, spinal, lumbar ICD Codes: M48.06 - Spinal stenosis, lumbar region SNOMED: 02163688 (4) Cervical radiculopathy ICD Codes: M54.12 - Radiculopathy, cervical region SNOMED: 56525798 (5) Depression ICD Codes: F32.9 - Major depressive disorder, single episode, unspecified SNOMED: 10440612 (6) Costochondritis ICD Codes: M94.0 - Chondrocostal junction syndrome [Tietze] SNOMED: 82328336 (7) DDD (degenerative disc disease) SNOMED: 00781896 (8) Chronic pain ICD Codes: G89.29 - Other chronic pain SNOMED: 79450613 (9) GERD (gastroesophageal reflux disease) ICD Codes: K21.9 - Gastro-esophageal reflux disease without esophagitis SNOMED: 057674809 (10) Anemia ICD Codes: D64.9 - Anemia, unspecified SNOMED: 527629424 (11) HTN (hypertension) ICD Codes: I10 - Essential (primary) hypertension SNOMED: 42972617 (12) Osteoarthritis ICD Codes: M19.90 - Unspecified osteoarthritis, unspecified site SNOMED: 145770570 Status: progressing Assessment/Plan: anemia imroved transfusion per heme/onc dc to snf see dictated note for details afebrile Subjective ROS Limited/Unobtainable: Yes Allergies: Coded Allergies: No Known Allergies (Verified , 03/28/07) Objective Last 24 Hour Vital Signs Date Time Temp Pulse Resp B/P (MAP) Pulse Ox O2 Delivery O2 Flow Rate FiO2 07/17/19 16:00 98.0 77 18 133/74 (93) 98 07/17/19 12:00 98.3 81 18 135/68 (90) 97 07/17/19 09:12 85 133/59 07/17/19 09:04 85 133/59 (83) 07/17/19 09:00 Room Air 07/17/19 09:00 98.3 81 18 135/68 (90) 97 07/17/19 08:00 98.8 88 19 148/77 (100) 98 07/17/19 04:00 98.5 84 18 134/61 (85) 97 07/17/19 03:35 98.2 07/17/19 00:00 98.2 83 18 141/63 (89) 96 07/16/19 22:04 Room Air Intake and Output 07/16/19 07/17/19 18:59 06:59 Intake Total 800 ml Output Total 300 ml Balance 800 ml -300 ml Intake Oral 800 ml Output Urine Total 300 ml # Bowel Movements 2 Height (Feet): 5 Height (Inches): 4.00 Weight (Pounds): 160 Cardiovascular: regular rhythm Respiratory/Chest: lungs clear Abdomen: non tender Bam Jolly MD Jul 17, 2019 20:02
--- NOTE | 2019-07-18 08:27 | Discharge Summary ---
Discharge Summary Discharge Summary _ DATE OF ADMISSION: 07/13/2019 DATE OF DISCHARGE: 07/17/2019 DISCHARGED BY: Dr. Jolly REASON FOR ADMISSION: 69 years old female with past medical history of hypertension, congestive heart failure, COPD, presented with abnormal hemoglobin. Patient denied chest pain and shortness of breath. Patient reported fatigue. Patient recently had open reduction internal fixation of left femur fracture. Upon evaluation vital signs were stable . Laboratory work-up revealed no leukocytosis , hemoglobin 7.7 , hematocrit 24.1. Platelet count 251. Stable electrolytes and renal parameters. Glucose 106. Stable LFT. Albumin 3.0. EKG reveals sinus rhythm, no acute ischemic changes . Patient admitted for symptomatic anemia. CONSULTANTS: orthopedic surgeon Dr. Powers nurse private duty Dr. Clemente floor assembler/oncologist Dr. Rivas pain specialist Dr. Tucker HOSPITAL COURSE: Patient admitted to medical surgical floor. Patient was transfused with 1 unit of packed red blood cells. Anemia work-up revealed evidence of iron deficiency. Patient was on IV iron while in the hospital. Hemoglobin and hematocrit were closely monitored with goal to keep hemoglobin above 7. No evidence of hemolysis. Prior to discharge hemoglobin 10.8 , hematocrit 32.7. Per floor assembler , anemia was related to recent procedure. Orthopedic surgeon seen and evaluated patient. Per orthopedic surgeon , no evidence of any obvious infection. Patient can do toe-touch weightbearing on the left leg until she gets repeated imaging studies. Patient with chronic pain , cervical disc disease , status post cervical fusion, status post open reduction internal fixation left femur due to femur fracture. Pain management was addressed as per pain specialist recommendation. Blood pressure was closely monitored and managed with calcium channel colette. Clonidine was on board as needed. Antiplatelet therapy with aspirin continued. Bowel regimen instituted. Patient clinically stabilized and was ready for discharge to shelter facility for continuation of care. FINAL DIAGNOSES: Symptomatic anemia, requiring blood transfusion Anemia of iron deficiency Postoperative anemia Status post recent open reduction internal fixation left femur fracture Osteoarthritis Hypertension Degenerative disc disease, cervical Cervical herniated disc Cervical radiculopathy History of fusion of cervical spine DISCHARGE MEDICATIONS: See Medication Reconciliation list. DISCHARGE INSTRUCTIONS: Patient was discharged to the shelter facility. Follow up with medical doctor at the facility. I have been assigned to dictate discharge summary for this account. I was not involved in the patient's management. Danyell Gerardo NP Jul 18, 2019 08:27
--- NOTE | 2019-07-26 23:58 | Coder Physician Query ---
PLEASE COMPLETE FORM BEFORE SIGNING Dear Dr. Bam Jolly Date:07/26/19 Hand Violin Maker/ CDS Name: ROSAS echeverria Exercise your independent professional judgment when responding to query. Questions asked do not imply particular answer is desired or expected. We greatly appreciate your clarification on this issue. Clinical Documentation States: FINAL DIAGNOSES: Symptomatic anemia, requiring blood transfusion REASON FOR ADMISSION: The patient was admitted for severe anemia, status post recent distal femur fracture ORIF on the left. 69 years old female with past medical history of hypertension, congestive heart failure, COPD, presented with abnormal hemoglobin. Patient denied chest pain and shortness of breath. Patient reported fatigue. Clinical Findings Show: Hb__7.7_ Hct _24.1 ; Transfusion(s) __1 PRBC____ Units Please clarify the specific type of anemia below: Acuity: []Acute []Acute on Chronic []Chronic Etiology: [] Blood loss [] ESRD [] Neoplastic disease [] Iron deficiency [] GI Bleed from [] Anemia of chronic disease, [] Unable to determine [] Other: Condition Present on Admission: [] Yes [] No [ ] Clinically Undeterminable Please also document in your Progress Notes and/or Discharge Summary and indicate if the condition was present on admission. KIMBERLY
--- NOTE | 2019-07-28 10:43 | CDS Physician Query ---
Clarification is required for compliance, coding accuracy, and to reflect severity of illness for this patient Dear Tan Saxena MD Date: 07/28/2019 Harvesting Supervisor/ CDS Name: Tyree Santamaria Clinical Documentation States: FINAL DIAGNOSES: Symptomatic anemia, requiring blood transfusion REASON FOR ADMISSION: The patient was admitted for severe anemia, status post recent distal femur fracture ORIF on the left. 69 years old female with past medical history of hypertension, congestive heart failure, COPD, presented with abnormal hemoglobin. Patient denied chest pain and shortness of breath. Patient reported fatigue. Clinical Findings Show: Hb 7.7 Hct 24.1 Transfusion(s) 1 P RBC Units Please clarify the specific type of anemia below: Acuity []Acute []Acute on Chronic []Chronic Etiology [] Blood loss [] ESRD [] Neoplastic disease [] Iron deficiency [] GI Bleeding [] Anemia of chronic disease [] Dilutional [] Postoperative [] Unable to determine [] Other: Present on Admission: [] Yes [] No [] Clinically Undetermined Physician signature Date Please also document in your Progress Notes and/or Discharge Summary and indicate if the condition was present on admission. RICCID
== END 2019-07-17 20:00 | DRG 812 ==
LOC: EDBD 16:58 → EDUNIT# 16:58 → EMR 18:44 → 3E 19:49 → EDBEDREQ 19:56 → 4E 07-16 09:13
PROC: 30233N1 Transfusion of Nonautologous Red Blood Cells into Peripheral Vein, Percutaneous Approach (ICD-10-PCS; principal; 2019-07-13)
DX: D62 Acute posthemorrhagic anemia (principal); I10 Essential (primary) hypertension; M50.30 Other cervical disc degeneration, unspecified cervical region; M19.90 Unspecified osteoarthritis, unspecified site; M50.10 Cervical disc disorder with radiculopathy, unspecified cervical region; M47.22 Other spondylosis with radiculopathy, cervical region; Z98.1 Arthrodesis status; M79.605 Pain in left leg; Z98.890 Other specified postprocedural states; G89.29 Other chronic pain; F41.9 Anxiety disorder, unspecified; M94.0 Chondrocostal junction syndrome [Tietze]; K21.9 Gastro-esophageal reflux disease without esophagitis; J44.9 Chronic obstructive pulmonary disease, unspecified
CPT/HCPCS: 36415; 80048; 80053; 80061; 82607; 82668; 82728; 82746; 83540; 83550; 83735; 83880; 84100; 84443; 84550; 85007; 85025; 85044; 85060; 85610; 85730; 86140; 86850; 86900; 86901; 86920; 87081; 93005; 96374; 99285

== ENCOUNTER 2019-12-05 00:42 | Inpatient (IN) | payer MEDICARE, OTHER ==
[~2019-12-05] VITALS: Ht 162.6 cm; Wt 88.7 kg
[~2019-12-05 00:42] MED LIST changes: +RESTORIL15 MG ORAL
[2019-12-05 00:45] VITALS: BP 182/81
--- NOTE | 2019-12-05 00:45 | NUR ---
ED Nurse Note: Patient brought into ED by RA from home c/o ground level fall, patient states that she was initially weak on her knees and complains of low back pain accompanied by right rib pain. patient is alert and oriented x4, complains of 10/10 pain and is moaning and yelling. patient's systolic blood pressure is in the 180s. Dr. Carrillo aware and notified. will continue to monitor
--- NOTE | 2019-12-05 00:53 | Emergency Room Report ---
History of Present Illness General Chief Complaint: Multiple Trauma/Fall Source: Patient, EMS Present Illness HPI 69-year-old female presents with mechanical fall endorses right chest wall pain and breast pain patient reports she fell ground-level states she tripped on some close no LOC did not hit her head, patient denies take any blood thinners patient endorses right chest wall pain that is worse with movement alleviated with rest severity is mild intermittent, patient states ever since she had repair to her left femur she has been having trouble walking and utilizes a walker to ambulate Patient was waiting outside for EMS to pick her up she walked to the [facility] Allergies: Coded Allergies: No Known Allergies (Verified , 03/28/07) Patient History Past Medical History: see triage record Last Menstrual Period: n/a Reviewed Nursing Documentation: PMH: Agreed; PSxH: Agreed Nursing Documentation-PMH Hx Cardiac Problems: Yes - CHF Hx Hypertension: Yes Hx Pacemaker: No Hx Asthma: No Hx COPD: Yes Hx Diabetes: No Hx Cancer: No Hx Gastrointestinal Problems: No Hx Dialysis: No Hx Neurological Problems: No Hx Cerebrovascular Accident: No Hx Seizures: No Review of Systems All Other Systems: negative except mentioned in HPI Physical Exam Vital Signs Date Time Temp Pulse Resp B/P (MAP) Pulse Ox O2 Delivery O2 Flow Rate FiO2 12/05/19 00:40 97.9 100 18 190/86 (120) 100 Room Air Sp02 EP Interpretation: reviewed, normal General Appearance: well appearing, no apparent distress, alert Head: normocephalic, atraumatic Eyes: bilateral eye PERRL, bilateral eye EOMI ENT: uvula midline, moist mucus membranes Neck: supple, thyroid normal, supple/symm/no masses Respiratory: lungs clear, no respiratory distress, no retraction, no accessory muscle use Cardiovascular #1: normal peripheral pulses, regular rate, rhythm, no edema, no gallop, no murmur Gastrointestinal: non tender, soft, no guarding, no rebound Musculoskeletal: normal inspection Neurologic: alert, oriented x3 Psychiatric: mood/affect normal Skin: no rash, warm/dry Medical Decision Making Diagnostic Impression: Primary Impression: Fall Qualified Codes: W19.XXXA - Unspecified fall, initial encounter Additional Impression: Ribs, multiple fractures Qualified Codes: S22.41XA - Multiple fractures of ribs, right side, initial encounter for closed fracture ER Course 69-year-old female presents with mechanical fall with new right chest wall pain. Patient found to have bilateral old rib fractures as well as an acute versus subacute right rib fracture that is nondisplaced patient remains in pain despite pain medication we will admit patient for incentive spirometry and pain control patient admitted to [facility] CT/MRI/US Diagnostic Results CT/MRI/US Diagnostic Results : Impression Preliminary Findings Only See Final Report For Complete Findings CT CHEST Without Contrast: Small sliding-type hiatal hernia. Mitral annular calcification. No pneumothorax , pleural or pericardial effusion. Mild chronic-appearing superior endplate compression deformities in the upper and mid thoracic spine. Ground-glass opacification in the right lung apex. This is nonspecific but may represent pulmonary contusion versus scarring. There are some chronic bilateral rib fractures. Nondisplaced right lateral fifth rib fracture which may be acute to subacute. Radiologist: Pepe Verma MD Study ready at 02:09 and initial results transmitted at 03:20 Preliminary Findings Only See Final Report For Complete Findings CT HEAD Without Contrast: No acute intracranial pathology. Minimal periventricular low-attenuation foci, nonspecific but commonly chronic small vessel ischemic disease or advanced age. Encephalomalacia in the right temporal lobe. Radiologist: Pepe Verma MD Study ready at 01:47 and initial results transmitted at 03:09 Last Vital Signs Date Time Temp Pulse Resp B/P (MAP) Pulse Ox O2 Delivery O2 Flow Rate FiO2 12/05/19 00:40 97.9 100 18 190/86 (120) 100 Room Air Disposition: ADMITTED INPATIENT Condition: Stable Atilio Carrillo MD Dec 05, 2019 00:52
[2019-12-05] MEDS ORDERED: HYDROmorphone 1mg/ml Carpuject IM ONE (01:00)
[2019-12-05] MEDS ORDERED: HYDROcodone/Acetamin 5/325 tab ORAL ONE (01:00)
[2019-12-05] MEDS ORDERED: Ketorolac 30mg Inj IM ONE (01:00)
[2019-12-05] MEDS ORDERED: Acetaminophen 500mg (ES) tab ORAL ONE (01:00)
--- NOTE | 2019-12-05 01:15 | NUR ---
HAND-OFF: Report given to MELANIE Pennington.
--- NOTE | 2019-12-05 01:44 | NUR ---
ED Nurse Note: Pt is back from CT
[2019-12-05 02:00] VITALS: BP 157/67
--- NOTE | 2019-12-05 03:09 | Diagnostic Imaging Report ---
Indication: Headache. Head injury Technique: Contiguous 5 mm thick transaxial imaging of the head obtained in a Siemens Sensation [address] scanner. Soft tissue and bone windows generated. Automatic Exposure Control was utilized. Total Dose length Product (DLP): 1125.7mGycm CT Dose Index Volume (CTDIvol): 53.4 mGy Comparison: none Findings: There is mild prominence of the ventricles, basal cisterns, and cerebral sulci consistent with atrophy. Mild, nonspecific, white matter hypoattenuation is noted throughout the brain consistent with chronic small vessel disease. There is encephalomalacia suspected in the anterior part of the right temporal lobe. This may be due to prior trauma or previous CVA. There is no midline shift, edema, acute hemorrhage, mass effect, or abnormal extra-axial fluid collections. Bones are unremarkable. Impression: No acute intracranial bleed, mass effect or edema. Encephalomalacia right temporal lobe Mild atrophy of the brain. Nonspecific white matter hypoattenuation probably due to chronic small vessel disease. [facility] has communicated the preliminary results to the Emergency Department. Their findings are largely concordant with this report. The CT scanner at [facility] is accredited by the [employer] and the scans are performed using dose optimization techniques as appropriate to a performed exam including Automatic Exposure control.
--- NOTE | 2019-12-05 03:21 | Diagnostic Imaging Report ---
Indication: Chest pain Technique: Continuous helical transaxial imaging of the chest was obtained from the thoracic inlet to the upper abdomen. No intravenous contrast was administered. Coronal 2-D reformats were also obtained. Total Dose length Product (DLP): 431.[address] Dose Index Volume (CTDIvol): 12.4 mGy Comparison: none Findings: The lungs are clear. There is some minimal posterior basal atelectasis. Aorta is calcified. Coronary calcifications also noted. Study is limited by the nonadministration of contrast material. Small hiatal hernia is present. There is narrowing of intervertebral discs and accompanying endplate osteophyte formation. Hypertrophied facet joints also demonstrated.. Old rib fractures are noted. IMPRESSION: No acute findings. [facility] has communicated the preliminary results to the Emergency Department. Their findings are largely concordant with this report. Incidental findings as above The CT scanner at [facility] is accredited by the [employer] and the scans are performed using dose optimization techniques as appropriate to a performed exam including Automatic Exposure control.
[2019-12-05] MEDS ORDERED: HYDROmorphone 1mg/ml Carpuject IVP ONE (03:30)
[2019-12-05 04:24] LABS: ANION GAP 14 mmol/L (5-15); BLOOD UREA NITROGEN 30 mg/dL (7-18); CALCIUM 9.3 MG/DL (8.5-10.1); CARBON DIOXIDE 22 MMOL/L (21-32); CHLORIDE 107 MMOL/L (98-107); CREATININE 1.6 MG/DL (0.55-1.30); POTASSIUM 4.7 MMOL/L (3.5-5.1); SODIUM 143 MMOL/L (136-145)
--- NOTE | 2019-12-05 04:24 | NUR ---
ED Nurse Note: Pt is in bed, crying intermittently, then will fall asleep then wake up screaming.
[2019-12-05 04:29] LABS: ALANINE AMINOTRANSFERASE 24 U/L (12-78); ALBUMIN 4.1 G/DL (3.4-5.0); ALBUMIN/GLOBULIN RATIO 1.2 (1.0-2.7); ALKALINE PHOSPHATASE 129 U/L (46-116); ASPARTATE AMINO TRANSFERASE 31 U/L (15-37); BILIRUBIN,TOTAL 0.4 MG/DL (0.2-1.0)
[2019-12-05 04:36] LABS: BASOPHILS % (AUTO) 1.1 % (0.0-2.0); EOSINOPHILS % (AUTO) 2.7 % (0.0-3.0); HEMATOCRIT 27.1 % (37.0-47.0); HEMOGLOBIN 9.2 G/DL (12.0-16.0); LYMPHOCYTES % (AUTO) 15.6 % (20.0-45.0); MEAN CORPUSCULAR VOLUME 86 FL (80-99); MONOCYTES % (AUTO) 8.7 % (1.0-10.0); NEUTROPHILS % (AUTO) 71.9 % (45.0-75.0); PLATELET COUNT 115 K/UL (150-450); RED BLOOD COUNT 3.14 M/UL (4.20-5.40); RED CELL DISTRIBUTION WIDTH 15.1 % (11.6-14.8); WHITE BLOOD COUNT 7.8 K/UL (4.8-10.8)
[2019-12-05] MEDS ORDERED: DiphenhydrAMINE 50mg/ml Inj IVP ONE (04:45)
[2019-12-05] MEDS ORDERED: Hydromorphone 0.5mg/0.5ml inj IVP ONE (04:45)
[2019-12-05] MEDS ORDERED: Ketorolac 30mg Inj IV ONE (04:45)
--- NOTE | 2019-12-05 05:00 | NUR ---
TRANSFER TO FLOOR: Patient transferred to as ordered, per Dr Chan. Report given to MELANIE Patiño. Belongings and medications given to . Family and or S/O informed of transfer.
--- NOTE | 2019-12-05 05:00 | NUR ---
NURSE NOTES: Received patient via gurney from juvenile detention officer and RN. Patient is on room air. IV site intact in the Left upper arm. Alert x2, patient is confused. VSS. Belongings list verified. Placed patient in semi-fowlers, call light within reach. Oriented patient to the room and surroundings, bed alarm on, bed locked, bed at the lowest level, yellow socks in place. Addendum: 12/05/19 at 0604 by Haroon Escobedo RN Patient is a high-fall risk per Osp[place] fall score, s/p multiple falls at home. Room close to the nurses station currently unavailable. Bed alarm placed on high sensitivity. High fall risk status reported to CN and staff. Patient oriented to the room and proper use of call light, patient verbalized understanding and returned demonstration with use of call light.
[2019-12-05 05:10] VITALS: BP 135/74
[2019-12-05] MEDS ORDERED: DiphenhydrAMINE 25mg Tab ORAL PRN (06:00)
[2019-12-05] MEDS ORDERED: Mylanta II UD 30ml ORAL PRN (06:00)
[2019-12-05] MEDS ORDERED: Albuterol/Ipratropium 3ml neb HHN PRN (06:00)
--- NOTE | 2019-12-05 07:20 | NUR ---
HAND-OFF: Report given to Sanya NAVARRO.
[2019-12-05 08:00] VITALS: BP 130/66
[2019-12-05] MEDS: Docusate 100mg cap ORAL SCH ×2 (08:07→20:48)
--- NOTE | 2019-12-05 09:29 | NUR ---
NURSE NOTES: received pt asleep arousable, drowsy. bed in lowest position, locked. call light within reach. will monitor. no sob. no distress. no c/o pain.
[2019-12-05] MEDS: HYDROmorphone 1mg/ml Carpuject IVP PRN ×2 (11:34→20:47)
--- NOTE | 2019-12-05 11:54 | NUR ---
CASE MANAGEMENT:REVIEW 69 YR OLD FEMALE BIBA CC: GROUND LEVEL FALL SI: MULTIPLE RIB FRACTURES 97.9 100 18 190/86 100% ON RA H/H-9.2/27.1 PLT-115 BUN+30 CR+1.6 IS: TYLENOL PO TORADOL IM PERCOCET PO IV ZOFRAN IV DILAUDID IM DILAUDID CT HEAD AND CHEST : ADMITTED TO MED/SURG 4 EAST PLAN: PT HONG
--- NOTE | 2019-12-05 14:18 | History and Physical ---
History of Present Illness General Date patient seen: Dec 05, 2019 Time patient seen: 12:45 Reason for Hospitalization: Multiple Trauma/Fall Present Illness HPI ms. rivera is a 69 year old female with hx of prior left femure fracture s/p surgery, presenting from home after sustaining another fall. she uses walker at home, lives alone. She is currently complaining of cough and right sided chest pain from where she fell. denies any fever, chills, SOB, left sided chest pain, n/v. Allergies: Coded Allergies: No Known Allergies (Verified , 03/28/07) Medication History Scheduled Aspirin* (Aspir 81*), 81 MG ORAL DAILY, (Reported) Losartan/Hydrochlorothiazide 50-12.5 Tablet* (Hyzaar 50-12.5 Tablet*), 1 TAB ORAL DAILY Rosuvastatin Calcium* (Crestor*), 20 MG ORAL BEDTIME, (Reported) Sertraline Hcl* (Zoloft*), 200 MG ORAL DAILY, (Reported) Scheduled PRN Ipratropium/Albuterol Sulfate (DuoNeb 0.5-3(2.5)mg/3ml), 3 ML HHN Q4HRT PRN Temazepam* (Restoril*), 15 MG ORAL BEDTIME PRN for Insomnia, (Reported) Patient History Healthcare decision maker Resuscitation status Advanced Directive on File Review of Systems Constitutional: Denies: no symptoms, see HPI, chills, sweats, fever, malaise, weakness, other Eye: Denies: no symptoms, see HPI, eye pain, blurred vision, tearing, double vision, nose pain, nose congestion, acuity changes, discharge, other ENT: Denies: no symptoms, see HPI, ear pain, ear discharge, nose pain, nose congestion, throat pain, throat swelling, mouth pain, hearing loss, nasal discharge, other Respiratory: Denies: no symptoms, see HPI, cough, orthopnea, shortness of breath, stridor, wheezing, WHITT, sputum, other Cardiovascular: Denies: no symptoms, see HPI, chest pain, edema, palpitations, syncope, PND, other Gastrointestinal: Denies: no symptoms, see HPI, abdominal pain, constipation, diarrhea, nausea, vomiting, melena, hematemesis, other Genitourinary: Denies: no symptoms, see HPI, discharge, dysuria, frequency, hematuria, pain, retention, incontinence, urgency, vag bleed/dc, other Musculoskeletal: Reports: no symptoms, see HPI, back pain, gout, joint pain, joint swelling, muscle pain, muscle stiffness, other - right sided chest pain from fall Skin: Denies: no symptoms, see HPI, rash, change in color, change in hair/nails , dryness, lesions, other Psychiatric: Denies: no symptoms, see HPI, prior hx, anxiety, depressed feelings, emotional problems, SI, HI, hallucinations, other Neurological: Denies: no symptoms, see HPI, headache, numbness, paresthesia, seizure, tingling, tremors, focal weakness, syncope, dizziness, other Endocrine: Denies: no symptoms, see HPI, excessive sweating, flushing, intolerance to temperature, increased thirst, increased urine, unexplained weight loss, other Hematologic/Lymphatic: Denies: no symptoms, see HPI, anemia, blood clots, easy bleeding, easy bruising, swollen glands, diathesis, other Physical Exam General Appearance: alert HEENT: normocephalic, atraumatic Neck: supple Respiratory/Chest: lungs clear, normal breath sounds Cardiovascular/Chest: normal rate, regular rhythm Abdomen: non tender, soft Last 24 Hour Vital Signs Date Time Temp Pulse Resp B/P (MAP) Pulse Ox O2 Delivery O2 Flow Rate FiO2 12/05/19 12:04 97.4 12/05/19 08:00 97.4 82 20 130/66 (87) 91 12/05/19 07:54 Room Air 12/05/19 05:36 Room Air 12/05/19 05:10 97.4 89 20 135/74 (94) 91 12/05/19 05:00 98.1 91 18 157/67 100 Room Air 12/05/19 02:00 98.1 91 18 157/67 100 Room Air 12/05/19 00:45 97.9 96 18 182/81 100 Room Air 12/05/19 00:45 100 18 Room Air 12/05/19 00:40 97.9 100 18 190/86 (120) 100 Room Air Intake and Output 12/04/19 12/05/19 19:00 07:00 Intake Total 120 ml Balance 120 ml Intake Oral 120 ml Laboratory Tests Test 12/05/19 04:14 White Blood Count 7.8 K/UL (4.8-10.8) Red Blood Count 3.14 M/UL (4.20-5.40) L Hemoglobin 9.2 G/DL (12.0-16.0) L Hematocrit 27.1 % (37.0-47.0) L Mean Corpuscular Volume 86 FL (80-99) Mean Corpuscular Hemoglobin 29.2 PG (27.0-31.0) Mean Corpuscular Hemoglobin Concent 33.8 G/DL (32.0-36.0) Red Cell Distribution Width 15.1 % (11.6-14.8) H Platelet Count 115 K/UL (150-450) L Mean Platelet Volume 8.6 FL (6.5-10.1) Neutrophils (%) (Auto) 71.9 % (45.0-75.0) Lymphocytes (%) (Auto) 15.6 % (20.0-45.0) L Monocytes (%) (Auto) 8.7 % (1.0-10.0) Eosinophils (%) (Auto) 2.7 % (0.0-3.0) Basophils (%) (Auto) 1.1 % (0.0-2.0) Sodium Level 143 MMOL/L (136-145) Potassium Level 4.7 MMOL/L (3.5-5.1) Chloride Level 107 MMOL/L (98-107) Carbon Dioxide Level 22 MMOL/L (21-32) Anion Gap 14 mmol/L (5-15) Blood Urea Nitrogen 30 mg/dL (7-18) H Creatinine 1.6 MG/DL (0.55-1.30) H Estimat Glomerular Filtration Rate 38.8 mL/min (>60) Glucose Level 98 MG/DL (74-106) Calcium Level 9.3 MG/DL (8.5-10.1) Total Bilirubin 0.4 MG/DL (0.2-1.0) Aspartate Amino Transf (AST/SGOT) 31 U/L (15-37) Alanine Aminotransferase (ALT/SGPT) 24 U/L (12-78) Alkaline Phosphatase 129 U/L (46-116) H Total Protein 7.5 G/DL (6.4-8.2) Albumin 4.1 G/DL (3.4-5.0) Globulin 3.4 g/dL Albumin/Globulin Ratio 1.2 (1.0-2.7) Height (Feet): 5 Height (Inches): 4.00 Weight (Pounds): 202 Medications Current Medications Medications (Trade) Dose Ordered Sig/Star Route PRN Reason Start Time Stop Time Status Last Admin Dose Admin Acetaminophen (Tylenol) 650 mg Q4H PRN ORAL Mild Pain (Pain Scale 1-3) 12/05/19 06:00 01/04/20 05:59 Al Hydroxide/Mg Hydroxide (Mylanta II) 30 ml Q6H PRN ORAL dyspepsia 12/05/19 06:00 01/04/20 05:59 Albuterol/ Ipratropium (Albuterol/ Ipratropium) 3 ml Q6H PRN HHN Shortness of Breath 12/05/19 06:00 12/10/19 05:59 Bisacodyl (Dulcolax) 10 mg HSPRN PRN RECTAL Constipation 12/05/19 06:00 01/04/20 05:59 Dextrose (Dextrose 50%) 25 ml Q30M PRN IV Hypoglycemia 12/05/19 06:00 01/04/20 05:59 Dextrose (Dextrose 50%) 50 ml Q30M PRN IV Hypoglycemia 12/05/19 06:00 01/04/20 05:59 Diphenhydramine HCl (Benadryl) 25 mg Q6H PRN ORAL Itching/Pruritis 12/05/19 06:00 01/04/20 05:59 Docusate Sodium (Colace) 100 mg EVERY 12 HOURS ORAL 12/05/19 09:00 01/04/20 08:59 12/05/19 08:07 Heparin Sodium (Porcine) (Heparin 5000 units/ml) 5,000 units EVERY 12 HOURS SUBQ 12/05/19 21:00 01/04/20 20:59 Hydromorphone HCl (Dilaudid) 1 mg Q4H PRN IVP Moderate Pain (Pain Scale 4-6) 12/05/19 06:00 12/12/19 05:59 12/05/19 11:34 Hydromorphone HCl (Dilaudid) 2 mg Q4H PRN IVP Severe Pain (Pain Scale 7-10) 12/05/19 06:00 12/12/19 05:59 Ondansetron HCl (Zofran) 4 mg Q6H PRN IVP Nausea & Vomiting 12/05/19 06:00 01/04/20 05:59 Assessment/Plan Problem List: (1) Fall ICD Codes: W19.XXXA - Unspecified fall, initial encounter SNOMED: 9164259, 191694164 Qualifiers: Qualified Codes: W19.XXXA - Unspecified fall, initial encounter (2) Ribs, multiple fractures ICD Codes: S22.49XA - Multiple fractures of ribs, unspecified side, initial encounter for closed fracture SNOMED: 5522431 Qualifiers: Qualified Codes: S22.41XA - Multiple fractures of ribs, right side, initial encounter for closed fracture (3) Anxiety ICD Codes: F41.9 - Anxiety disorder, unspecified SNOMED: 60314226 (4) HTN (hypertension) ICD Codes: I10 - Essential (primary) hypertension SNOMED: 84978957 Status: stable Assessment/Plan: Ms. Rivera is a 69 year old female with hx of prior falls, left femur fx, HTN presenting with a fall, MSK chest pain. #Falls #Deconditioning #Failure to thrive #Old rib fractures -Admit to inpatient. -General surgery consulted for rib fx. -Pain control. -Imaging with old fractures, not new. -PT -SW consult for home safety. -Will likely need SNF, if not home health at the least. #Anxiety/depression. -Continue home Zoloft. #HTN -Continue home HTN. Extra 37 minutes spent on chart review of pertinent information (labs, imaging, medications, prior MD notes) Time of note doesn't reflect time of encounter. Fili Meraz M.D. Dec 05, 2019 14:18
[2019-12-05 16:00] VITALS: BP 112/60
--- NOTE | 2019-12-05 16:04 | Consultation ---
History of Present Illness General Date patient seen: Dec 05, 2019 Reason for Hospitalization: Multiple Trauma/Fall Present Illness HPI 69-year-old female presents with mechanical fall endorses right chest wall pain and breast pain patient reports she fell ground-level states she tripped on some close no LOC did not hit her head, patient denies take any blood thinners patient endorses right chest wall pain that is worse with movement alleviated with rest severity is mild intermittent, patient states ever since she had repair to her left femur she has been having trouble walking and utilizes a walker to ambulate admitted for further care and management noted to have rib fractures. Surgery called to evaluate and assist with care. Patient seen, [facility] [place], chart reviewed. States she is having pain on the right chest wall. Allergies: Coded Allergies: No Known Allergies (Verified , 03/28/07) Medication History Scheduled Aspirin* (Aspir 81*), 81 MG ORAL DAILY, (Reported) Losartan/Hydrochlorothiazide 50-12.5 Tablet* (Hyzaar 50-12.5 Tablet*), 1 TAB ORAL DAILY Rosuvastatin Calcium* (Crestor*), 20 MG ORAL BEDTIME, (Reported) Sertraline Hcl* (Zoloft*), 200 MG ORAL DAILY, (Reported) Scheduled PRN Ipratropium/Albuterol Sulfate (DuoNeb 0.5-3(2.5)mg/3ml), 3 ML HHN Q4HRT PRN Temazepam* (Restoril*), 15 MG ORAL BEDTIME PRN for Insomnia, (Reported) Patient History History Provided By: Patient, Medical Record, PMD Healthcare decision maker Resuscitation status Advanced Directive on File Past Medical/Surgical History Past Medical/Surgical History: (1) UTI (urinary tract infection) (2) Cervical spondylosis (3) Cervical herniated disc (4) ACS (acute coronary syndrome) (5) Odynophagia (6) Dysphagia (7) Hypercholesteremia (8) Sepsis (9) Knee pain, left (10) Degenerative disc disease, cervical (11) copd (12) Chest pain (13) Bronchitis (14) COPD exacerbation (15) Routine lab draw (16) Hematologic abnormality (17) Anemia (18) Osteoarthritis (19) COPD (chronic obstructive pulmonary disease) (20) Depression (21) Costochondritis (22) Stenosis, spinal, lumbar (23) DDD (degenerative disc disease) (24) GERD (gastroesophageal reflux disease) (25) Chronic pain (26) Cervical radiculopathy (27) Fall (28) Anxiety (29) HTN (hypertension) (30) Ribs, multiple fractures Review of Systems Review of Symptoms General ROS: no weight loss or fever Psychological ROS: no depression or mood changes, no memory loss Ophthalmic ROS: no visual changes or eye irritation ENT ROS: no nasal congestion, hearing loss, dizziness Allergy and Immunology ROS: no allergic symptoms or urticaria Hematological and Lymphatic ROS: no swollen glands, unusual bleeding or bruising Endocrine ROS: no polyuria, polydipsia, weight changes, temperature intolerance Respiratory ROS: no cough, shortness of breath, or wheezing Cardiovascular ROS: no chest pain or dyspnea on exertion Gastrointestinal ROS: denies abdominal pain, bright red blood in stool. Musculoskeletal ROS: no myalgias or arthralgias right chest wall pain with deep inspiration Neurological ROS: no TIA or stroke symptoms Dermatological ROS: no new or changing skin lesions, rashes or pruritis Physical Exam Physical Exam General appearance: alert, cooperative, no distress, appears stated age Head: Normocephalic, without obvious abnormality, atraumatic Eyes: conjunctivae/corneas clear. PERRL, EOM's intact. Fundi benign Throat: Lips, mucosa, and tongue normal. Teeth and gums normal Neck: supple, symmetrical, trachea midline, no adenopathy, thyroid: not enlarged, symmetric, no tenderness/mass/nodules, no carotid bruit and no JVD Lungs: clear to auscultation bilaterally Heart: regular rate and rhythm, S1, S2 normal, no murmur, click, rub or gallop Abdomen: soft, non-tender. Bowel sounds normal. No masses, no organomegaly Extremities: extremities normal, atraumatic, no cyanosis or edema Pulses: 2+ and symmetric Skin: Skin color, texture, turgor normal. No rashes or lesions Neurologic: Grossly normal Last 24 Hour Vital Signs Date Time Temp Pulse Resp B/P (MAP) Pulse Ox O2 Delivery O2 Flow Rate FiO2 12/05/19 12:04 97.4 12/05/19 08:00 97.4 82 20 130/66 (87) 91 12/05/19 07:54 Room Air 12/05/19 05:36 Room Air 12/05/19 05:10 97.4 89 20 135/74 (94) 91 12/05/19 05:00 98.1 91 18 157/67 100 Room Air 12/05/19 02:00 98.1 91 18 157/67 100 Room Air 12/05/19 00:45 97.9 96 18 182/81 100 Room Air 12/05/19 00:45 100 18 Room Air 12/05/19 00:40 97.9 100 18 190/86 (120) 100 Room Air Intake and Output 12/04/19 12/05/19 19:00 07:00 Intake Total 120 ml Balance 120 ml Intake Oral 120 ml Laboratory Tests Test 12/05/19 04:14 White Blood Count 7.8 K/UL (4.8-10.8) Red Blood Count 3.14 M/UL (4.20-5.40) L Hemoglobin 9.2 G/DL (12.0-16.0) L Hematocrit 27.1 % (37.0-47.0) L Mean Corpuscular Volume 86 FL (80-99) Mean Corpuscular Hemoglobin 29.2 PG (27.0-31.0) Mean Corpuscular Hemoglobin Concent 33.8 G/DL (32.0-36.0) Red Cell Distribution Width 15.1 % (11.6-14.8) H Platelet Count 115 K/UL (150-450) L Mean Platelet Volume 8.6 FL (6.5-10.1) Neutrophils (%) (Auto) 71.9 % (45.0-75.0) Lymphocytes (%) (Auto) 15.6 % (20.0-45.0) L Monocytes (%) (Auto) 8.7 % (1.0-10.0) Eosinophils (%) (Auto) 2.7 % (0.0-3.0) Basophils (%) (Auto) 1.1 % (0.0-2.0) Sodium Level 143 MMOL/L (136-145) Potassium Level 4.7 MMOL/L (3.5-5.1) Chloride Level 107 MMOL/L (98-107) Carbon Dioxide Level 22 MMOL/L (21-32) Anion Gap 14 mmol/L (5-15) Blood Urea Nitrogen 30 mg/dL (7-18) H Creatinine 1.6 MG/DL (0.55-1.30) H Estimat Glomerular Filtration Rate 38.8 mL/min (>60) Glucose Level 98 MG/DL (74-106) Calcium Level 9.3 MG/DL (8.5-10.1) Total Bilirubin 0.4 MG/DL (0.2-1.0) Aspartate Amino Transf (AST/SGOT) 31 U/L (15-37) Alanine Aminotransferase (ALT/SGPT) 24 U/L (12-78) Alkaline Phosphatase 129 U/L (46-116) H Total Protein 7.5 G/DL (6.4-8.2) Albumin 4.1 G/DL (3.4-5.0) Globulin 3.4 g/dL Albumin/Globulin Ratio 1.2 (1.0-2.7) Height (Feet): 5 Height (Inches): 4.00 Weight (Pounds): 202 Medications Current Medications Medications (Trade) Dose Ordered Sig/Star Route PRN Reason Start Time Stop Time Status Last Admin Dose Admin Acetaminophen (Tylenol) 650 mg Q4H PRN ORAL Mild Pain (Pain Scale 1-3) 12/05/19 06:00 01/04/20 05:59 Al Hydroxide/Mg Hydroxide (Mylanta II) 30 ml Q6H PRN ORAL dyspepsia 12/05/19 06:00 01/04/20 05:59 Albuterol/ Ipratropium (Albuterol/ Ipratropium) 3 ml Q6H PRN HHN Shortness of Breath 12/05/19 06:00 12/10/19 05:59 Aspirin (Ecotrin) 81 mg DAILY ORAL 12/06/19 09:00 01/05/20 08:59 Bisacodyl (Dulcolax) 10 mg HSPRN PRN RECTAL Constipation 12/05/19 06:00 01/04/20 05:59 Dextrose (Dextrose 50%) 25 ml Q30M PRN IV Hypoglycemia 12/05/19 06:00 01/04/20 05:59 Dextrose (Dextrose 50%) 50 ml Q30M PRN IV Hypoglycemia 12/05/19 06:00 01/04/20 05:59 Diphenhydramine HCl (Benadryl) 25 mg Q6H PRN ORAL Itching/Pruritis 12/05/19 06:00 01/04/20 05:59 Docusate Sodium (Colace) 100 mg EVERY 12 HOURS ORAL 12/05/19 09:00 01/04/20 08:59 12/05/19 08:07 HCTZ/Losartan Potassium (Hyzaar 50-12.5mg) 1 tab DAILY ORAL 12/06/19 09:00 01/05/20 08:59 Heparin Sodium (Porcine) (Heparin 5000 units/ml) 5,000 units EVERY 12 HOURS SUBQ 12/05/19 21:00 01/04/20 20:59 Hydromorphone HCl (Dilaudid) 1 mg Q4H PRN IVP Moderate Pain (Pain Scale 4-6) 12/05/19 06:00 12/12/19 05:59 12/05/19 11:34 Hydromorphone HCl (Dilaudid) 2 mg Q4H PRN IVP Severe Pain (Pain Scale 7-10) 12/05/19 06:00 12/12/19 05:59 Ondansetron HCl (Zofran) 4 mg Q6H PRN IVP Nausea & Vomiting 12/05/19 06:00 01/04/20 05:59 Sertraline HCl (Zoloft) 200 mg DAILY ORAL 12/06/19 09:00 01/05/20 08:59 Temazepam (Restoril) 15 mg HSPRN PRN ORAL Insomnia 12/05/19 21:00 12/12/19 20:59 Assessment/Plan Problem List: (1) Fall Assessment & Plan: Findings: There is mild prominence of the ventricles, basal cisterns, and cerebral sulci consistent with atrophy. Mild, nonspecific, white matter hypoattenuation is noted throughout the brain consistent with chronic small vessel disease. There is encephalomalacia suspected in the anterior part of the right temporal lobe. This may be due to prior trauma or previous CVA. There is no midline shift, edema, acute hemorrhage, mass effect, or abnormal extra-axial fluid collections. Bones are unremarkable. Impression: No acute intracranial bleed, mass effect or edema. Encephalomalacia right temporal lobe Mild atrophy of the brain. Nonspecific white matter hypoattenuation probably due to chronic small vessel disease. Fortunately no intracranial bleed. Full work-up completed no other acute visible injuries. Symptoms identified noted but as per patient. Okay for diet. Pain management not at steroid all anti-inflammatories Caution with narcotic use Stool softeners will follow with recommendations thank you for your participation's care ICD Codes: W19.XXXA - Unspecified fall, initial encounter SNOMED: [id number], [id number] Qualifiers: Qualified Codes: W19.XXXA - Unspecified fall, initial encounter (2) Ribs, multiple fractures Assessment & Plan: Findings: The lungs are clear. There is some minimal posterior basal atelectasis. Aorta is calcified. Coronary calcifications also noted. Study is limited by the nonadministration of contrast material. Small hiatal hernia is present. There is narrowing of intervertebral discs and accompanying endplate osteophyte formation. Hypertrophied facet joints also demonstrated.. Old rib fractures are noted. IMPRESSION: No acute findings. Patient complaining of rib fractures potentially being recent as noted on CT likely old no acute findings. Right chest wall pain deep inspiration potentially from fall may be from old chest rib fractures fortunately in no acute will continue monitor. Pain management. Incentive spirometry. ICD Codes: S22.49XA - Multiple fractures of ribs, unspecified side, initial encounter for closed fracture SNOMED: 7991406 Qualifiers: Qualified Codes: S22.41XA - Multiple fractures of ribs, right side, initial encounter for closed fracture Jose Downing Dec 05, 2019 16:04
--- NOTE | 2019-12-05 17:13 | NUR ---
DRY PAN OPERATOR NOTE SW received a consult for home safety evaluation. SW met w/ pt and assessed pt. Pt appears to be drowsy and A&O 4x. Pt resides alone at [address], [facility], [place] [address]. Pt is ambulatory w/ walker and is independent w/ ADLs but may need some supervision. Pt's [employer] application is in process. Per pt, Kimberly, her neighbor across the street will be the IHSS caregiver once pt receives [employer] hours. Pt is single, never and has two adult daughters named Dorothy and Zabrina living out of town. Pt did not have their contact information. Pt does not have POA/AD. Pt wants her next of kin, sister Susy Kelly [phone] to be the decision maker if pt cannot make one. Pt reports she would need a shower chair in her bathroom. Pending PT eval. Pt does not want consider SNF placement and pt is wishing to return home. Despite having sufficient social support, pt may not be safe to return home at this condition as she is residing alone. Signed: 12/05/19 at 1720 by JOSE RALPH <Co-Signature Required>
--- NOTE | 2019-12-05 19:10 | NUR ---
HAND-OFF: Report given to JEWEL NAVARRO.
[2019-12-05 20:00] VITALS: BP 127/57
[2019-12-05] MEDS: Heparin 5000 units/ml inj SUBQ SCH (20:53)
--- NOTE | 2019-12-05 21:00 | NUR ---
NURSE NOTES: Patient observed trying to get out of bed, assisted to bathroom twice with the help of patient's walker. Pain medicine to be given per MD order. Patient is a high-fall risk per [place]sp[place] fall score, s/p multiple falls at home. Room close to the nurses station currently unavailable. Bed alarm placed on high sensitivity. High fall risk status reported to floor staff. Patient oriented to the room and proper use of call light, patient verbalized understanding and returned demonstration with use of call light.
[2019-12-06] VITALS: BP 123/72
[2019-12-06] MEDS: HYDROmorphone 1mg/ml Carpuject IVP PRN ×3 (02:29→20:49)
[2019-12-06 04:00] VITALS: BP 132/63
--- NOTE | 2019-12-06 07:00 | NUR ---
HAND-OFF: Report given to MELANIE Javier. Endorsed patient's high fall risk status.
[2019-12-06 08:00] VITALS: BP 130/66
[2019-12-06] MEDS ORDERED: Sertraline 100mg tab ORAL SCH (09:00)
--- NOTE | 2019-12-06 09:15 | NUR ---
PT NOTE Received MD order for PT evaluation. Attempted to see patient however patient declining to participate due to pain. Yaya NAVARRO notified, will re-attempt later as schedule permits.
[2019-12-06] MEDS: Hyzaar 50-12.5mg tab ORAL SCH (09:42)
[2019-12-06] MEDS: Aspirin EC 81mg tab ORAL SCH (09:42)
[2019-12-06] MEDS: Docusate 100mg cap ORAL SCH ×2 (09:42→20:50)
[2019-12-06] MEDS: Heparin 5000 units/ml inj SUBQ SCH ×2 (09:49→20:59)
[2019-12-06 12:00] VITALS: BP 137/70
--- NOTE | 2019-12-06 12:29 | NUR ---
CASE MANAGEMENT:INITIAL REVIEW 69 YR OLD FEMALE BIBA FROM HOME CC;MULTIPLE TRAUMA/FALL SI;BILATERAL RIB FRACTURES. 97.9 100 18 190/86 91% ON RA H/H 9.2/27.1 BUN [address]=No acute intracranial bleed, mass effect or edema. CHEST CT=There is narrowing of intervertebral discs and accompanying endplate osteophyte formation. Hypertrophied facet joints also demonstrated. Old rib fractures are noted. IS;ACETAMINOPHEN PO ONCE TORADOL IM ONCE NORCO PO ONCE ZOFRAN PO ONCE ADMITTED TO MED SURG MED SURG STATUS DCP;FROM HOME DILAUDID IM ONCE
--- NOTE | 2019-12-06 13:35 | NUR ---
PT NOTE Second attempt to see patient for PT evaluation. Patient sleeping, able to arouse. Patient declined to participate with PT, Yaya NAVARRO notified. Will follow up tomorrow.
--- NOTE | 2019-12-06 14:00 | NUR ---
NURSE NOTES: PATIENT SEEN IN AM ASLEEP IN BED, ROUSABLE, ABLE TO FOLLOW COMMANDS. VERBALIZED CHEST PAIN ON RIGHT SIDE BUT HAS DOCUMENTED HISTORY OF CHEST PAIN. NO OBVIOUS DISTRESS. VITAL SIGNS ARE WNL. PATIENT IS A HIGH FALL RISK PER [place] SCALE. HAS NOT ATTEMPTED TO GET OUT OF BED TODAY. BED ALARMS ON ZONE 1 AND POSITIONED AT LOWEST LEVEL. HOURLY ROUNDS DONE. CALL LIGHT WITHIN REACH. EDUCATED PT TO CALL FOR ASSISTANCE WHEN NEEDED FOR SAFETY PURPOSES. PT VERBALIZED UNDERSTANDING. WILL CONTINUE TO MONITOR.
--- NOTE | 2019-12-06 14:47 | Surgery Progress Note ---
Surgery Progress Note Subjective Additional Comments no acute events stable comfortable tolerating diet wants pain meds tho looks comfortable Objective Last 24 Hour Vital Signs Date Time Temp Pulse Resp B/P (MAP) Pulse Ox O2 Delivery O2 Flow Rate FiO2 12/06/19 12:00 98.6 108 19 137/70 (92) 98 12/06/19 09:42 130/66 12/06/19 09:00 Room Air 12/06/19 08:00 98.8 106 20 130/66 (87) 98 12/06/19 07:00 90 20 91 Room Air 21 12/06/19 04:00 98.9 108 22 132/63 (86) 91 12/06/19 02:59 99.6 12/06/19 00:00 99.6 105 25 123/72 (89) 91 12/05/19 21:21 Room Air 12/05/19 20:00 98.6 97 24 127/57 (80) 91 12/05/19 19:52 95 24 92 Room Air 21 12/05/19 16:00 97.4 88 20 112/60 (77) 91 I&O Intake and Output 12/05/19 12/06/19 19:00 07:00 Intake Total 600 ml 3600 ml Balance 600 ml 3600 ml Intake Oral 600 ml Other 3600 ml # Voids 2 4 Cardiovascular: RSR Respiratory: clear Abdomen: soft, non-tender, present bowel sounds, non-distended Extremities: no edema, no tenderness, no cyanosis Plan Problems: (1) Fall Assessment & Plan: Findings: There is mild prominence of the ventricles, basal cisterns, and cerebral sulci consistent with atrophy. Mild, nonspecific, white matter hypoattenuation is noted throughout the brain consistent with chronic small vessel disease. There is encephalomalacia suspected in the anterior part of the right temporal lobe. This may be due to prior trauma or previous CVA. There is no midline shift, edema, acute hemorrhage, mass effect, or abnormal extra-axial fluid collections. Bones are unremarkable. Impression: No acute intracranial bleed, mass effect or edema. Encephalomalacia right temporal lobe Mild atrophy of the brain. Nonspecific white matter hypoattenuation probably due to chronic small vessel disease. Fortunately no intracranial bleed. Full work-up completed no other acute visible injuries. Symptoms identified noted but as per patient. Okay for diet. Pain management not at steroid all anti-inflammatories Caution with narcotic use Stool softeners will follow with recommendations thank you for your participation's care (2) Ribs, multiple fractures Assessment & Plan: Findings: The lungs are clear. There is some minimal posterior basal atelectasis. Aorta is calcified. Coronary calcifications also noted. Study is limited by the nonadministration of contrast material. Small hiatal hernia is present. There is narrowing of intervertebral discs and accompanying endplate osteophyte formation. Hypertrophied facet joints also demonstrated.. Old rib fractures are noted. IMPRESSION: No acute findings. Patient complaining of rib fractures potentially being recent as noted on CT likely old no acute findings. Right chest wall pain deep inspiration potentially from fall may be from old chest rib fractures fortunately in no acute will continue monitor. Pain management. Incentive spirometry. Jose Downing Dec 06, 2019 14:47
--- NOTE | 2019-12-06 15:01 | NUR ---
ANIMAL TECHNICIAN NOTE SW attempted to meet w/ pt to assess her condition but pt was sleeping. SW will continue to F/U. Signed: 12/06/19 at 1503 by JOSE RALPH <Co-Signature Required>
[2019-12-06 16:00] VITALS: BP 133/80
--- NOTE | 2019-12-06 16:00 | NUR ---
NURSE NOTES: Patient stated that she had a partial denture, RN checked patient's belonging list,no denture was logged. RN spoke to patient's sister on contact, sister said, patient had denture but not sure if patient brought it with her. RN searched every where, no denture was found.
--- NOTE | 2019-12-06 16:30 | NUR ---
NURSE NOTES: Patient called RN and said " I brought my cell phone, where is it?" again RN checked the belongings list, no cell phone on the list. Patient is a&O x2 and groggy due to pain meds.
--- NOTE | 2019-12-06 17:05 | General Progress Note ---
Assessment/Plan Problem List: (1) Fall ICD Codes: W19.XXXA - Unspecified fall, initial encounter SNOMED: 1617168, 399062919 Qualifiers: Qualified Codes: W19.XXXA - Unspecified fall, initial encounter (2) Ribs, multiple fractures ICD Codes: S22.49XA - Multiple fractures of ribs, unspecified side, initial encounter for closed fracture SNOMED: 8575510 Qualifiers: Qualified Codes: S22.41XA - Multiple fractures of ribs, right side, initial encounter for closed fracture (3) Anxiety ICD Codes: F41.9 - Anxiety disorder, unspecified SNOMED: 69702107 (4) HTN (hypertension) ICD Codes: I10 - Essential (primary) hypertension SNOMED: 38138493 Status: stable Assessment/Plan: Ms. Aguilar is a 69 year old female with hx of prior falls, left femur fx, HTN presenting with a fall, MSK chest pain. #Falls #Deconditioning #Failure to thrive #Old rib fractures -General surgery consulted for rib fx. -Pain control. -Imaging with old fractures, not new. -PT -SW consult for home safety. -Will likely need SNF, if not home health at the least. #Anxiety/depression. #Somnolence -Discontinue home Zoloft and qhs prn temazepam given somnolence this AM and refusing PT. -Will reintroduce as needed. #HTN -Continue home HTN. Time spent on encounter: 38 mins, >50% on counseling and coordination of care. Time of note doesn't reflect time of encounter. Subjective Date patient seen: Dec 06, 2019 Time patient seen: 14:00 Constitutional: Denies: no symptoms, chills, diaphoresis, fever, malaise, weakness, other HEENT: Denies: no symptoms, eye pain, blurred vision, tearing, double vision, ear pain, ear discharge, nose pain, nose congestion, throat pain, throat swelling, mouth pain, mouth swelling, other Cardiovascular: Denies: no symptoms, chest pain, edema, irregular heart rate, lightheadedness, palpitations, syncope, other Respiratory: Denies: no symptoms, cough, orthopnea, shortness of breath, SOB with excertion, SOB at rest, sputum, stridor, wheezing, other Gastrointestinal/Abdominal: Denies: no symptoms, abdomen distended, abdominal pain, black stools, tarry stools, blood in stool, constipated, diarrhea, difficulty swallowing, nausea, poor appetite, poor fluid intake, rectal bleeding , vomiting, other Genitourinary: Denies: no symptoms, burning, discharge, frequency, flank pain, hematuria, incontinence, pain, urgency, other Neurologic/Psychiatric: Denies: no symptoms, anxiety, depressed, emotional problems, headache, numbness, paresthesia, pre-existing deficit, seizure, tingling, tremors, weakness, other Endocrine: Denies: no symptoms, excessive sweating, flushing, intolerance to cold, intolerance to heat, increased hunger, increased thirst, increased urine, unexplained weight gain, unexplained weight loss, other Hematologic/Lymphatic: Denies: no symptoms, anemia, easy bleeding, easy bruising, other Allergies: Coded Allergies: No Known Allergies (Verified , 03/28/07) Subjective sleeping soundly, refused PT twice. Objective Last 24 Hour Vital Signs Date Time Temp Pulse Resp B/P (MAP) Pulse Ox O2 Delivery O2 Flow Rate FiO2 12/06/19 16:00 98.2 101 20 133/80 (97) 98 12/06/19 12:00 98.6 108 19 137/70 (92) 98 12/06/19 09:42 130/66 12/06/19 09:00 Room Air 12/06/19 08:00 98.8 106 20 130/66 (87) 98 12/06/19 07:00 90 20 91 Room Air 21 12/06/19 04:00 98.9 108 22 132/63 (86) 91 12/06/19 02:59 99.6 12/06/19 00:00 99.6 105 25 123/72 (89) 91 12/05/19 21:21 Room Air 12/05/19 20:00 98.6 97 24 127/57 (80) 91 12/05/19 19:52 95 24 92 Room Air 21 Intake and Output 12/05/19 12/06/19 19:00 07:00 Intake Total 600 ml 3600 ml Balance 600 ml 3600 ml Intake Oral 600 ml Other 3600 ml # Voids 2 4 Height (Feet): 5 Height (Inches): 4.00 Weight (Pounds): 195 General Appearance: WD/WN, no apparent distress Neck: supple Cardiovascular: normal rate, regular rhythm Respiratory/Chest: lungs clear, normal breath sounds Abdomen: non tender, soft Fili Meraz M.D. Dec 06, 2019 17:05
--- NOTE | 2019-12-06 19:27 | NUR ---
HAND-OFF: Report given to Sofia NAVARRO. Endorsed that patient is a high fall risk. Room close to station currently unavailable. Patient's bed in lowest position and bed alarms set at zone 1. Call light within reach. Instructed patient to use call light for assistance.
--- NOTE | 2019-12-06 19:30 | NUR ---
NURSE NOTES: Patient in bed and sleeping at this time. On room air with no signs of distress or SOB. IV intact and patent. Bed locked and in lowest position. Bed alarm activated. Call light in easy reach. Will continue to monitor the patient.
[2019-12-06 20:00] VITALS: BP 119/60
[2019-12-07] VITALS (7 sets, daily range): BP systolic 139–185; BP diastolic 67–101
[2019-12-07 07:18] LABS: EOSINOPHILS % (AUTO) 2.2 % (0.0-3.0); HEMOGLOBIN 11.5 G/DL (12.0-16.0); LYMPHOCYTES % (AUTO) 26.9 % (20.0-45.0); MEAN CORPUSCULAR VOLUME 88 FL (80-99); MONOCYTES % (AUTO) 9.4 % (1.0-10.0); NEUTROPHILS % (AUTO) 60.5 % (45.0-75.0); PLATELET COUNT 174 K/UL (150-450); RED BLOOD COUNT 4.08 M/UL (4.20-5.40); RED CELL DISTRIBUTION WIDTH 14.4 % (11.6-14.8); WHITE BLOOD COUNT 6.9 K/UL (4.8-10.8)
[2019-12-07 07:27] LABS: ALANINE AMINOTRANSFERASE 24 U/L (12-78); ALBUMIN 3.7 G/DL (3.4-5.0); ALKALINE PHOSPHATASE 114 U/L (46-116); ANION GAP 13 mmol/L (5-15); ASPARTATE AMINO TRANSFERASE 24 U/L (15-37); BILIRUBIN,TOTAL 0.5 MG/DL (0.2-1.0); BLOOD UREA NITROGEN 19 mg/dL (7-18); CALCIUM 9.4 MG/DL (8.5-10.1); CARBON DIOXIDE 27 MMOL/L (21-32); CHLORIDE 108 MMOL/L (98-107); CREATININE 0.9 MG/DL (0.55-1.30); POTASSIUM 3.9 MMOL/L (3.5-5.1); SODIUM 147 MMOL/L (136-145)
--- NOTE | 2019-12-07 07:44 | NUR ---
NURSE NOTES: Received patient in bed awake. Noted with restless behavior, complaining of rib pain. IV line for reinsertion. HOB elevated. Bed locked in lowest position, alarm on high sensitivity setting. Side rails kept up. Call light within reach. Will continue plan of care.
--- NOTE | 2019-12-07 07:46 | NUR ---
HAND-OFF: Report given to MELANIE Dill.
[2019-12-07] MEDS: Docusate 100mg cap ORAL SCH ×2 (09:00→20:16)
[2019-12-07] MEDS: Aspirin EC 81mg tab ORAL SCH (09:00)
[2019-12-07] MEDS: Hyzaar 50-12.5mg tab ORAL SCH (09:00)
[2019-12-07] MEDS: Heparin 5000 units/ml inj SUBQ SCH ×2 (09:02→20:16)
--- NOTE | 2019-12-07 09:32 | Surgery Progress Note ---
Surgery Progress Note Subjective Additional Comments no acute events states she needs more pain medication as everywhere hurts states she fell yesterday and broke her ribs she did NOT fall recently. potentially using old rib fx as excuse for pain meds Objective Last 24 Hour Vital Signs Date Time Temp Pulse Resp B/P (MAP) Pulse Ox O2 Delivery O2 Flow Rate FiO2 12/07/19 09:00 149/71 12/07/19 08:00 100.5 106 22 149/71 (97) 86 12/07/19 07:54 94 22 92 Room Air 21 12/07/19 04:00 98.3 107 22 143/72 (95) 96 12/07/19 00:00 97.8 98 26 139/67 (91) 92 12/06/19 21:00 Room Air 12/06/19 20:00 97.8 90 20 119/60 (79) 93 12/06/19 20:00 89 20 93 Room Air 21 12/06/19 16:00 98.2 101 20 133/80 (97) 98 12/06/19 12:00 98.6 108 19 137/70 (92) 98 12/06/19 09:42 130/66 I&O Intake and Output 12/06/19 12/07/19 19:00 07:00 Intake Total 800 ml 400 ml Balance 800 ml 400 ml Intake Oral 800 ml 400 ml # Voids 6 3 Cardiovascular: RSR Respiratory: clear Abdomen: soft, non-tender, present bowel sounds Extremities: no edema, no tenderness, no cyanosis Laboratory Tests Test 12/07/19 06:20 White Blood Count 6.9 K/UL (4.8-10.8) Red Blood Count 4.08 M/UL (4.20-5.40) L Hemoglobin 11.5 G/DL (12.0-16.0) L Hematocrit 36.0 % (37.0-47.0) L Mean Corpuscular Volume 88 FL (80-99) Mean Corpuscular Hemoglobin 28.2 PG (27.0-31.0) Mean Corpuscular Hemoglobin Concent 31.9 G/DL (32.0-36.0) L Red Cell Distribution Width 14.4 % (11.6-14.8) Platelet Count 174 K/UL (150-450) Mean Platelet Volume 8.1 FL (6.5-10.1) Neutrophils (%) (Auto) 60.5 % (45.0-75.0) Lymphocytes (%) (Auto) 26.9 % (20.0-45.0) Monocytes (%) (Auto) 9.4 % (1.0-10.0) Eosinophils (%) (Auto) 2.2 % (0.0-3.0) Basophils (%) (Auto) 1.0 % (0.0-2.0) Erythrocyte Sedimentation Rate 58 MM/HR (0-30) H Sodium Level 147 MMOL/L (136-145) H Potassium Level 3.9 MMOL/L (3.5-5.1) Chloride Level 108 MMOL/L (98-107) H Carbon Dioxide Level 27 MMOL/L (21-32) Anion Gap 13 mmol/L (5-15) Blood Urea Nitrogen 19 mg/dL (7-18) H Creatinine 0.9 MG/DL (0.55-1.30) Estimat Glomerular Filtration Rate > 60 mL/min (>60) Glucose Level 107 MG/DL (74-106) H Calcium Level 9.4 MG/DL (8.5-10.1) Total Bilirubin 0.5 MG/DL (0.2-1.0) Aspartate Amino Transf (AST/SGOT) 24 U/L (15-37) Alanine Aminotransferase (ALT/SGPT) 24 U/L (12-78) Alkaline Phosphatase 114 U/L (46-116) C-Reactive Protein, Quantitative 12.3 mg/dL (0.00-0.90) H Total Protein 7.5 G/DL (6.4-8.2) Albumin 3.7 G/DL (3.4-5.0) Globulin 3.8 g/dL Albumin/Globulin Ratio 1.0 (1.0-2.7) Plan Problems: (1) Fall Assessment & Plan: Findings: There is mild prominence of the ventricles, basal cisterns, and cerebral sulci consistent with atrophy. Mild, nonspecific, white matter hypoattenuation is noted throughout the brain consistent with chronic small vessel disease. There is encephalomalacia suspected in the anterior part of the right temporal lobe. This may be due to prior trauma or previous CVA. There is no midline shift, edema, acute hemorrhage, mass effect, or abnormal extra-axial fluid collections. Bones are unremarkable. Impression: No acute intracranial bleed, mass effect or edema. Encephalomalacia right temporal lobe Mild atrophy of the brain. Nonspecific white matter hypoattenuation probably due to chronic small vessel disease. Fortunately no intracranial bleed. Full work-up completed no other acute visible injuries. Symptoms identified noted but as per patient. Okay for diet. Pain management not at steroid all anti-inflammatories Caution with narcotic use Stool softeners will follow with recommendations thank you for your participation's care (2) Ribs, multiple fractures Assessment & Plan: Findings: The lungs are clear. There is some minimal posterior basal atelectasis. Aorta is calcified. Coronary calcifications also noted. Study is limited by the nonadministration of contrast material. Small hiatal hernia is present. There is narrowing of intervertebral discs and accompanying endplate osteophyte formation. Hypertrophied facet joints also demonstrated.. Old rib fractures are noted. IMPRESSION: No acute findings. Patient complaining of rib fractures potentially being recent as noted on CT likely old no acute findings. Right chest wall pain deep inspiration potentially from fall may be from old chest rib fractures fortunately in no acute will continue monitor. Pain management. Incentive spirometry. states she fell yesterday and broke her ribs she did not fall recently unless it was not reported or noted by staff (unlikely ) as patient is not reliable historian. potentially using old rib fx as excuse for pain meds on exam not consistent over a few days as pain in different locations Jose Downing Dec 07, 2019 09:32
--- NOTE | 2019-12-07 09:45 | NUR ---
PT EVALUATION NOTE Patient seen for initial evaluation. Patient presents with generalized weakness, decreased safety awareness and decreased balance which impairs patient's ability to perform mobility tasks safely. Patient is high risk for falls based on prior history of falls, impulsivity and decreased safety awareness. Patient required min assist for bed mobility and transfers with four wheeled walker. Patient declined to participate with gait training. Patient was anxious, impulsive and inconsistent with following commands. Patient c/o headache and R rib cage pain rated at 10/10. Patient will benefit from skilled inpatient PT intervention to address strength, balance and safety for increased level of independence with functional mobility. Recommend discharge to SNF once medically cleared by MD as patient lives alone and has history of falls. Patient has four wheeled walker for ambulation. Addendum: 12/07/19 at 1235 by KALEB SHAFFER PT Amended: Links added.
--- NOTE | 2019-12-07 10:14 | NUR ---
NURSE NOTES: RN attempted IV reinsertion twice but failed. Dr Chan paged, Dr Meraz covering. Dr Meraz will make rounds today. Patient noted with confused behavior and anxiety. Will refer to Dr Meraz upon rounds.
--- NOTE | 2019-12-07 10:36 | Diagnostic Imaging Report ---
Indication: Dyspnea Comparison: 05/09/2018 A single view chest radiograph was obtained. Findings: Lungs remain clear. Heart is borderline enlarged. Aorta is calcified. Lower cervical fusion plate noted. IMPRESSION: No acute disease
--- NOTE | 2019-12-07 10:39 | NUR ---
NURSE NOTES: Dr Meraz made rounds, no need for IV or IV medication, also aware of patient's confused behavior.
--- NOTE | 2019-12-07 11:20 | General Progress Note ---
Assessment/Plan Problem List: (1) Fall ICD Codes: W19.XXXA - Unspecified fall, initial encounter SNOMED: 0663269, [id number] Qualifiers: Qualified Codes: W19.XXXA - Unspecified fall, initial encounter (2) Ribs, multiple fractures ICD Codes: S22.49XA - Multiple fractures of ribs, unspecified side, initial encounter for closed fracture SNOMED: 8188684 Qualifiers: Qualified Codes: S22.41XA - Multiple fractures of ribs, right side, initial encounter for closed fracture (3) Anxiety ICD Codes: F41.9 - Anxiety disorder, unspecified SNOMED: 79406460 (4) HTN (hypertension) ICD Codes: I10 - Essential (primary) hypertension SNOMED: 36411704 Status: stable Assessment/Plan: Ms. Aguilar is a 69 year old female with hx of prior falls, left femur fx, HTN presenting with a fall, MSK chest pain. #Falls #Deconditioning #Failure to thrive #Old rib fractures -General surgery consulted for rib fx. -Pain control. -Imaging with old fractures, not new. -PT, amenable to working with PT today. - consult for home safety. -Will likely need SNF, if not home health at the least. #Anxiety/depression. #Somnolence -Discontinue home Zoloft and qhs prn temazepam given somnolence this AM and refusing PT. -Will reintroduce as needed. #Acute hypoxic respiratory failure #SOB #Cough -Pulm consult placed. appreciate recs. -Supplemental oxygen as needed. -f/u CXR. #HTN -Continue home HTN. Time spent on encounter: 35 mins, >50% on counseling and coordination of care. Time of note doesn't reflect time of encounter. Subjective Date patient seen: Dec 07, 2019 Constitutional: Denies: no symptoms, chills, diaphoresis, fever, malaise, weakness, other HEENT: Denies: no symptoms, eye pain, blurred vision, tearing, double vision, ear pain, ear discharge, nose pain, nose congestion, throat pain, throat swelling, mouth pain, mouth swelling, other Cardiovascular: Denies: no symptoms, chest pain, edema, irregular heart rate, lightheadedness, palpitations, syncope, other Respiratory: Reports: cough, shortness of breath Gastrointestinal/Abdominal: Denies: no symptoms, abdomen distended, abdominal pain, black stools, tarry stools, blood in stool, constipated, diarrhea, difficulty swallowing, nausea, poor appetite, poor fluid intake, rectal bleeding , vomiting, other Genitourinary: Denies: no symptoms, burning, discharge, frequency, flank pain, hematuria, incontinence, pain, urgency, other Neurologic/Psychiatric: Denies: no symptoms, anxiety, depressed, emotional problems, headache, numbness, paresthesia, pre-existing deficit, seizure, tingling, tremors, weakness, other Endocrine: Denies: no symptoms, excessive sweating, flushing, intolerance to cold, intolerance to heat, increased hunger, increased thirst, increased urine, unexplained weight gain, unexplained weight loss, other Hematologic/Lymphatic: Denies: no symptoms, anemia, easy bleeding, easy bruising, other Allergies: Coded Allergies: No Known Allergies (Verified , 03/28/07) Subjective sleeping, says "tired." complaining of right sided pain from fall, also SOB Objective Last 24 Hour Vital Signs Date Time Temp Pulse Resp B/P (MAP) Pulse Ox O2 Delivery O2 Flow Rate FiO2 12/07/19 09:00 149/71 12/07/19 09:00 Nasal Cannula 2.0 12/07/19 08:00 100.5 106 22 149/71 (97) 86 12/07/19 07:54 94 22 92 Room Air 21 12/07/19 04:00 98.3 107 22 143/72 (95) 96 12/07/19 00:00 97.8 98 26 139/67 (91) 92 12/06/19 21:00 Room Air 12/06/19 20:00 97.8 90 20 119/60 (79) 93 12/06/19 20:00 89 20 93 Room Air 21 12/06/19 16:00 98.2 101 20 133/80 (97) 98 12/06/19 12:00 98.6 108 19 137/70 (92) 98 Intake and Output 12/06/19 12/07/19 19:00 07:00 Intake Total 800 ml 400 ml Balance 800 ml 400 ml Intake Oral 800 ml 400 ml # Voids 6 3 Laboratory Tests 12/07/19 06:20: White Blood Count 6.9, Red Blood Count 4.08L, Hemoglobin 11.5L, Hematocrit 36.0L , Mean Corpuscular Volume 88, Mean Corpuscular Hemoglobin 28.2, Mean Corpuscular Hemoglobin Concent 31.9L, Red Cell Distribution Width 14.4, Platelet Count 174, Mean Platelet Volume 8.1, Neutrophils (%) (Auto) 60.5, Lymphocytes (%) (Auto) 26.9, Monocytes (%) (Auto) 9.4, Eosinophils (%) (Auto) 2.2, Basophils (%) (Auto) 1.0, Erythrocyte Sedimentation Rate 58H, Sodium Level 147H, Potassium Level 3.9, Chloride Level 108H, Carbon Dioxide Level 27, Anion Gap 13, Blood Urea Nitrogen 19H, Creatinine 0.9, Estimat Glomerular Filtration Rate > 60, Glucose Level 107H, Calcium Level 9.4, Total Bilirubin 0.5, Aspartate Amino Transf (AST/SGOT) 24, Alanine Aminotransferase (ALT/SGPT) 24, Alkaline Phosphatase 114, C-Reactive Protein, Quantitative 12.3H, Total Protein 7.5, Albumin 3.7, Globulin 3.8, Albumin/Globulin Ratio 1.0 Height (Feet): 5 Height (Inches): 4.00 Weight (Pounds): 195 General Appearance: no apparent distress, alert Neck: supple Cardiovascular: normal rate, regular rhythm Respiratory/Chest: lungs clear, normal breath sounds Abdomen: non tender, soft Fili Meraz M.D. Dec 07, 2019 11:20
--- NOTE | 2019-12-07 12:38 | NUR ---
RADIOLOGY DEPT., CHEST X-RAY DONE.-P.DYE
[2019-12-07] MEDS: HYDROcodone/Acetamin 5/325 tab ORAL PRN ×3 (13:51→22:35)
--- NOTE | 2019-12-07 15:45 | Consultation ---
DATE OF CONSULTATION: 12/07/2019 PULMONARY CONSULTATION CONSULTING PHYSICIAN: Chris Hubbard M.D. HISTORY OF PRESENT ILLNESS: This is a 69-year-old female, who is admitted to the hospital with right rib fracture. The patient has a history of previous left femur fracture. She is a alf resident. She apparently fell again and is complaining of right-sided chest pain. She came to the hospital, was admitted. A CT chest and x-ray have been obtained, which shows right-sided fractures. The right fifth rib fracture appears to be acute on subacute. HOME MEDICATIONS: Aspirin, losartan, Crestor, Zoloft. REVIEW OF SYSTEMS: Denies any headaches, hematemesis, melena, hematochezia, or weight loss. PAST MEDICAL HISTORY: Notable only for hypertension, recent femur fracture, status post surgery. PHYSICAL EXAMINATION: VITAL SIGNS: Blood pressure 140/70, heart rate is 100, respirations are 18, O2 saturation 92% on room air, T-max 100.5. GENERAL: Reveals an obese female. HEENT: Unremarkable. LUNGS: Clear breath sounds bilaterally. ABDOMEN: Soft. EXTREMITIES: There is no edema. LABORATORY DATA: Lab testing shows normal CBC and BMP with hemoglobin 11.5, sodium 147. Imaging, as discussed above. IMPRESSION: 1. Hypoxemia oxygen, etiology likely secondary to splinting and atelectasis. 2. Right rib fracture. 3. Hypertension. DISCUSSION: Agree with admission and care. 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 We will order oxygen and pulmonary hygiene. We will follow. Chris Hubbard M.D. DR: NATHEN JOB#: [id number] CC:
--- NOTE | 2019-12-07 19:29 | NUR ---
HAND-OFF: Report given to laurent.
--- NOTE | 2019-12-07 19:30 | NUR ---
NURSE NOTES: Pt. received from MELANIE Dill. Pt. AAOx4, on room air, no complaints of pain at this time, no indications of respiratory distress at this time. No IV access, MD aware. Bed is low and locked, side rails x2 up, bed alarm active, and call light is in reach. Will continue to monitor.
[2019-12-08] VITALS: BP 161/77
[2019-12-08 04:00] VITALS: BP 168/81
[2019-12-08] MEDS: HydrALAZINE 25mg tab ORAL PRN (06:38)
[2019-12-08] MEDS: HYDROmorphone 1mg/ml Carpuject IVP PRN ×4 (06:39→19:49)
--- NOTE | 2019-12-08 07:40 | NUR ---
HAND-OFF: Report given to MELANIE Dill.
[2019-12-08 08:00] VITALS: BP 143/85
[2019-12-08] MEDS: Hyzaar 50-12.5mg tab ORAL SCH (08:41)
[2019-12-08] MEDS: Docusate 100mg cap ORAL SCH ×2 (08:42→19:55)
[2019-12-08] MEDS: Aspirin EC 81mg tab ORAL SCH (08:42)
[2019-12-08] MEDS: Heparin 5000 units/ml inj SUBQ SCH ×2 (08:45→19:55)
--- NOTE | 2019-12-08 11:52 | General Progress Note ---
Assessment/Plan Problem List: (1) Fall ICD Codes: W19.XXXA - Unspecified fall, initial encounter SNOMED: 1661152, [id number] Qualifiers: Qualified Codes: W19.XXXA - Unspecified fall, initial encounter (2) Ribs, multiple fractures ICD Codes: S22.49XA - Multiple fractures of ribs, unspecified side, initial encounter for closed fracture SNOMED: 2806810 Qualifiers: Qualified Codes: S22.41XA - Multiple fractures of ribs, right side, initial encounter for closed fracture (3) Anxiety ICD Codes: F41.9 - Anxiety disorder, unspecified SNOMED: 24483972 (4) HTN (hypertension) ICD Codes: I10 - Essential (primary) hypertension SNOMED: 19845950 Status: stable Assessment/Plan: Ms. Aguilar is a 69 year old female with hx of prior falls, left femur fx, HTN presenting with a fall, MSK chest pain. #Falls #Deconditioning #Failure to thrive #Old rib fractures -General surgery consulted for rib fx, likely old. -Pain control. -Imaging with old fractures, not new. -Worked with PT today (12/07)-> 50 ft. -Will likely need SNF,given inability to care for herself and frequent falls. #HTN #Hypertensive urgency - resolved. -Continue home Hyzaar 50-12.5 -Amlodipine 5 mg daily added due to high BP -prn hydralazine IV #Anxiety/depression. #Somnolence - improved #?undiagnosed psych disorder -Discontinued home Zoloft and qhs prn temazepam, given somnolence during initial hospitalization. -Will reintroduce as needed. -Psych consulted. appreciate recs. #Acute hypoxic respiratory failure #SOB #Cough -Pulm consult placed. appreciate recs. -Supplemental oxygen as needed. #HTN -Continue home HTN. Time spent on encounter: 36 mins, >50% on counseling and coordination of care. Time of note doesn't reflect time of encounter. Subjective Date patient seen: Dec 08, 2019 Constitutional: Denies: no symptoms, chills, diaphoresis, fever, malaise, weakness, other HEENT: Denies: no symptoms, eye pain, blurred vision, tearing, double vision, ear pain, ear discharge, nose pain, nose congestion, throat pain, throat swelling, mouth pain, mouth swelling, other Cardiovascular: Denies: no symptoms, chest pain, edema, irregular heart rate, lightheadedness, palpitations, syncope, other Respiratory: Denies: no symptoms, cough, orthopnea, shortness of breath, SOB with excertion, SOB at rest, sputum, stridor, wheezing, other Gastrointestinal/Abdominal: Denies: no symptoms, abdomen distended, abdominal pain, black stools, tarry stools, blood in stool, constipated, diarrhea, difficulty swallowing, nausea, poor appetite, poor fluid intake, rectal bleeding , vomiting, other Genitourinary: Denies: no symptoms, burning, discharge, frequency, flank pain, hematuria, incontinence, pain, urgency, other Neurologic/Psychiatric: Denies: no symptoms, anxiety, depressed, emotional problems, headache, numbness, paresthesia, pre-existing deficit, seizure, tingling, tremors, weakness, other Endocrine: Denies: no symptoms, excessive sweating, flushing, intolerance to cold, intolerance to heat, increased hunger, increased thirst, increased urine, unexplained weight gain, unexplained weight loss, other Hematologic/Lymphatic: Denies: no symptoms, anemia, easy bleeding, easy bruising, other Allergies: Coded Allergies: No Known Allergies (Verified , 03/28/07) Subjective more awake, working with PT today. Still complaining of 10/10 right chest pain, though appears comfortable. Objective Last 24 Hour Vital Signs Date Time Temp Pulse Resp B/P (MAP) Pulse Ox O2 Delivery O2 Flow Rate FiO2 12/08/19 09:23 94 20 92 Room Air 21 12/08/19 08:41 98 143/85 12/08/19 08:41 143/85 12/08/19 08:00 98.1 98 18 143/85 (104) 95 12/08/19 06:38 168/81 12/08/19 04:00 98.3 94 20 168/81 (110) 93 12/08/19 00:00 97.6 20 20 161/77 (105) 98 12/07/19 23:05 98.1 12/07/19 21:00 Nasal Cannula 2.0 12/07/19 20:03 90 20 93 Room Air 21 12/07/19 20:00 98.1 88 20 162/80 (107) 96 12/07/19 18:14 96 168/85 12/07/19 16:00 97.9 96 21 168/85 (112) 97 12/07/19 12:00 99.0 107 22 185/101 (129) 92 Intake and Output 12/07/19 12/08/19 19:00 07:00 Intake Total 400 ml 400 ml Balance 400 ml 400 ml Intake Oral 400 ml Other 400 ml # Voids 2 # Bowel Movements 1 Height (Feet): 5 Height (Inches): 4.00 Weight (Pounds): 195 General Appearance: no apparent distress, alert Neck: supple Cardiovascular: normal rate, regular rhythm Respiratory/Chest: lungs clear, normal breath sounds Abdomen: non tender, soft Fili Meraz M.D. Dec 08, 2019 11:52
[2019-12-08 12:00] VITALS: BP 145/80
--- NOTE | 2019-12-08 13:17 | NUR ---
[facility] [employer] SUPERVISOR NOTE SPOKE WITH PATIENT AT BEDSIDE. INFORMED OF RECOMMENDATION FOR SNF PLACEMENT. PATIENT DECLINE SNF AT THIS TIME. PATIENT VERBALIZED HER DESIRE TO RETURN HOME UPON DISCHARGE. AGREES TO HOME HEALTH.
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
--- NOTE | 2019-12-08 14:26 | Pulmonology Progress Note ---
Assessment/Plan Assessment/Plan IMPRESSION: 1. Hypoxemia responsive to low flow oxygen, etiology likely secondary to splinting and atelectasis. 2. Right rib fracture. 3. Hypertension. DISCUSSION: Agree with admission and care. I will follow as crossing guard. I will order oxygen and pulmonary hygiene. Chris Hubbard M.D. Subjective Interval Events: she is still complaining of right sided chest pain Constitutional: Reports: no symptoms HEENT: Repors: no symptoms Respiratory: Reports: no symptoms Cardiovascular: Reports: no symptoms Gastrointestinal/Abdominal: Reports: no symptoms Allergies: Coded Allergies: No Known Allergies (Verified , 03/28/07) Objective Last 24 Hour Vital Signs Date Time Temp Pulse Resp B/P (MAP) Pulse Ox O2 Delivery O2 Flow Rate FiO2 12/08/19 12:00 97.8 95 19 145/80 (101) 93 12/08/19 09:23 94 20 92 Room Air 21 12/08/19 09:00 Room Air 12/08/19 08:41 98 143/85 12/08/19 08:41 143/85 12/08/19 08:00 98.1 98 18 143/85 (104) 95 12/08/19 06:38 168/81 12/08/19 04:00 98.3 94 20 168/81 (110) 93 12/08/19 00:00 97.6 20 20 161/77 (105) 98 12/07/19 23:05 98.1 12/07/19 21:00 Nasal Cannula 2.0 12/07/19 20:03 90 20 93 Room Air 21 12/07/19 20:00 98.1 88 20 162/80 (107) 96 12/07/19 18:14 96 168/85 12/07/19 16:00 97.9 96 21 168/85 (112) 97 Intake and Output 12/07/19 12/08/19 19:00 07:00 Intake Total 400 ml 400 ml Balance 400 ml 400 ml Intake Oral 400 ml Other 400 ml # Voids 2 # Bowel Movements 1 General Appearance: no acute distress HEENT: normocephalic Respiratory/Chest: chest wall non-tender, lungs clear Cardiovascular: normal peripheral pulses Abdomen: normal bowel sounds Current Medications Medications (Trade) Dose Ordered Sig/Star Route PRN Reason Start Time Stop Time Status Last Admin Dose Admin Acetaminophen (Tylenol) 650 mg Q4H PRN ORAL Mild Pain (Pain Scale 1-3) 12/05/19 06:00 01/04/20 05:59 12/06/19 22:15 Acetaminophen/ Hydrocodone Bitart ([place] 5/325) 1 tab Q4H PRN ORAL Moderate Pain (Pain Scale 4-6) 12/07/19 13:39 12/14/19 13:38 12/07/19 22:35 Al Hydroxide/Mg Hydroxide (Mylanta II) 30 ml Q6H PRN ORAL dyspepsia 12/05/19 06:00 01/04/20 05:59 Albuterol/ Ipratropium (Albuterol/ Ipratropium) 3 ml Q6H PRN HHN Shortness of Breath 12/05/19 06:00 12/10/19 05:59 Amlodipine Besylate (Norvasc) 5 mg DAILY ORAL 12/07/19 18:15 01/06/20 18:14 12/08/19 08:41 Aspirin (Ecotrin) 81 mg DAILY ORAL 12/06/19 09:00 01/05/20 08:59 12/08/19 08:42 Bisacodyl (Dulcolax) 10 mg HSPRN PRN RECTAL Constipation 12/05/19 06:00 01/04/20 05:59 Dextrose (Dextrose 50%) 25 ml Q30M PRN IV Hypoglycemia 12/05/19 06:00 01/04/20 05:59 Dextrose (Dextrose 50%) 50 ml Q30M PRN IV Hypoglycemia 12/05/19 06:00 01/04/20 05:59 Diphenhydramine HCl (Benadryl) 25 mg Q6H PRN ORAL Itching/Pruritis 12/05/19 06:00 01/04/20 05:59 Docusate Sodium (Colace) 100 mg EVERY 12 HOURS ORAL 12/05/19 09:00 01/04/20 08:59 12/08/19 08:42 HCTZ/Losartan Potassium (Hyzaar 50-12.5mg) 1 tab DAILY ORAL 12/06/19 09:00 01/05/20 08:59 12/08/19 08:41 Heparin Sodium (Porcine) (Heparin 5000 units/ml) 5,000 units EVERY 12 HOURS SUBQ 12/05/19 21:00 01/04/20 20:59 12/08/19 08:45 Hydralazine HCl (Apresoline) 25 mg Q6H PRN ORAL SBP > 160 12/08/19 06:15 01/07/20 06:14 12/08/19 06:38 Hydromorphone HCl (Dilaudid) 1 mg Q4H PRN IVP Moderate Pain (Pain Scale 4-6) 12/07/19 13:45 12/12/19 05:59 12/08/19 10:57 Hydromorphone HCl (Dilaudid) 2 mg Q4H PRN IVP Severe Pain (Pain Scale 7-10) 12/05/19 06:00 12/12/19 05:59 12/08/19 02:34 Ondansetron HCl (Zofran) 4 mg Q6H PRN IVP Nausea & Vomiting 12/05/19 06:00 01/04/20 05:59 Chris Hubbard MD Dec 08, 2019 14:26
[2019-12-08 16:00] VITALS: BP 148/70
--- NOTE | 2019-12-08 16:39 | NUR ---
CASE MANAGEMENT:REVIEW SI;MULTIPLE RIB FRACTURES. S/P FALL. HTN. 98.1 98 20 161/81 92% ON RA NO LABS IS;HYDRALAZINE PO Q6 HRS PRN SBP >160 NORVASC PO QD DILAUDID IV Q4 HRS PRN NORCO PO Q4 HRS PRN HYZAAR PO QD DUO NEB HHN Q6 HRS MED SURG STATUS DCP;FROM HOME
--- NOTE | 2019-12-08 19:40 | NUR ---
HAND-OFF: Report given to Jl.
[2019-12-08 20:00] VITALS: BP 157/79
--- NOTE | 2019-12-08 20:14 | NUR ---
NURSE NOTES: Pt is in bed, awake and alert. No acute distress noted. Pt complains of pain, pain medication given as ordered PRN. Pt is given a bedpan to void. Pt was cleaned and bed linen changed. Pt is high risk for fall. Fall precaution in place. Bed alarm on. Pt instructed to call before attempting to get out of bed.Bed locked low in position,side rails up and call light within reach. Pt will be monitored. Addendum: 12/08/19 at 2018 by PATTI WHALEN RN RN All unit staff including charge nurse made aware to assit in monitoring the patient as patient is high fall risk.
[2019-12-09] VITALS: BP 154/78
--- NOTE | 2019-12-09 | Consultation ---
DATE OF CONSULTATION: 12/08/2019 HISTORY OF PRESENT ILLNESS: The patient is a 69-year-old female. The patient has anxiety, poor insight, is illogical and needs The patient does not have a caregiver at home. She requires more care than home health. She stated that she wants to be discharged with home health. The patient has multiple falls. The patient has multiple fractures with falling. The patient is irrational and is unable to understand, process, communicate rationally. PAST PSYCHIATRY HISTORY: She denies any history of depression or anxiety. PAST MEDICAL HISTORY: As above. ALLERGIES: No known drug allergies. SUBSTANCE ABUSE HISTORY: No known history of illicit drug use or alcohol. MENTAL STATUS EXAMINATION: Alert and oriented times self, place, and situation. Mood is irritable. Affect is constricted, congruent with mood. Thought process is concrete. Thought content, no suicidal or homicidal ideation. Cognition is slightly impaired. Insight and judgment are impaired. ASSESSMENT: Elora I Depressive disorder. Elora II Deferred. Elora III As above. Elora IV Low. Elora V 50. PLAN: Recommend the patient to be discharged home only with 24 x 7 caregiver. As the patient has had recurrent falls and multiple fractures, she is not safe to be is irrational and difficult to Sindy Francois M.D. DR: ARJUN JOB#: [id number] CC: KIMBERLY
--- NOTE | 2019-12-09 03:08 | NUR ---
NURSE NOTES: Pt is in bed, awake and alert. No acute distress noted. Pt complains of pain back pain time to time. Pt scratched off two dry scabs on the right knee area, some bleeding noted, sites cleaned with NS and Optifoam applied to cover, advised patient to not scratch off scabs. Pt reminded to stay in bed and call for nurses before getting out of bed. Fall precaution in place.
[2019-12-09 04:00] VITALS: BP 112/70
--- NOTE | 2019-12-09 04:40 | NUR ---
HAND-OFF: Report given to Tanja,RN. Informed that pt is High Fall Risk Status, advised to monitor patient closely. Fall precaution in place.
[2019-12-09] MEDS: HYDROmorphone 1mg/ml Carpuject IVP PRN ×4 (05:52→21:44)
--- NOTE | 2019-12-09 07:56 | NUR ---
HAND-OFF: Report given to MELANIE LEYVA. Informed RN that patient is a fall risk.
[2019-12-09 08:00] VITALS: BP 135/68
--- NOTE | 2019-12-09 08:00 | NUR ---
NURSE NOTES: Patient awake and alert respirations unlabored.patient eating breakfast.Bed alarm is on,call light within reach.Nurse Aide aware of fall risk.
[2019-12-09] MEDS: Heparin 5000 units/ml inj SUBQ SCH ×2 (08:33→21:48)
[2019-12-09] MEDS: Aspirin EC 81mg tab ORAL SCH (08:34)
[2019-12-09] MEDS: Hyzaar 50-12.5mg tab ORAL SCH (08:35)
[2019-12-09] MEDS: Docusate 100mg cap ORAL SCH ×2 (09:00→21:00)
[2019-12-09 12:00] VITALS: BP 130/81
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
[2019-12-09 16:00] VITALS: BP 149/70
--- NOTE | 2019-12-09 18:28 | NUR ---
NURSE NOTES: Patient state she is able to rest,patient received pain medication as ordered.Call light within,bed alarm remains on.
--- NOTE | 2019-12-09 18:30 | Pulmonology Progress Note ---
Assessment/Plan Assessment/Plan IMPRESSION: 1. Hypoxemia responsive to low flow oxygen, etiology likely secondary to splinting and atelectasis. 2. Right rib fracture. 3. Hypertension. DISCUSSION: Agree with admission and care. I will follow as metal cans supervisor. IContinue oxygen and pulmonary hygiene. Chris Hubbard M.D. Subjective Interval Events: None new reported Constitutional: Reports: no symptoms HEENT: Repors: no symptoms Respiratory: Reports: no symptoms Cardiovascular: Reports: no symptoms Gastrointestinal/Abdominal: Reports: no symptoms Allergies: Coded Allergies: No Known Allergies (Verified , 03/28/07) Objective Last 24 Hour Vital Signs Date Time Temp Pulse Resp B/P (MAP) Pulse Ox O2 Delivery O2 Flow Rate FiO2 12/09/19 16:00 97.6 90 18 149/70 (96) 93 12/09/19 12:00 97.0 89 20 130/81 (97) 93 12/09/19 09:00 Nasal Cannula 2.0 12/09/19 08:35 91 144/60 12/09/19 08:35 144/60 12/09/19 08:00 97.3 95 20 135/68 (90) 95 12/09/19 07:14 92 20 91 Room Air 21 12/09/19 04:00 97.8 74 20 112/70 (84) 99 12/09/19 00:00 98.4 94 20 154/78 (103) 96 12/08/19 21:00 Room Air 12/08/19 20:00 98.0 86 20 157/79 (105) 95 12/08/19 19:31 95 20 95 Room Air 21 Intake and Output 12/08/19 12/09/19 19:00 07:00 Intake Total 1000 ml Output Total 200 ml Balance 1000 ml -200 ml Other 1000 ml Output Urine Total 200 ml General Appearance: no acute distress HEENT: normocephalic Respiratory/Chest: chest wall non-tender Cardiovascular: normal peripheral pulses Abdomen: normal bowel sounds Current Medications Medications (Trade) Dose Ordered Sig/Star Route PRN Reason Start Time Stop Time Status Last Admin Dose Admin Acetaminophen (Tylenol) 650 mg Q4H PRN ORAL Mild Pain (Pain Scale 1-3) 12/05/19 06:00 01/04/20 05:59 12/06/19 22:15 Acetaminophen/ Hydrocodone Bitart ([place]ina 5/325) 1 tab Q4H PRN ORAL Moderate Pain (Pain Scale 4-6) 12/07/19 13:39 12/14/19 13:38 12/07/19 22:35 Al Hydroxide/Mg Hydroxide (Mylanta II) 30 ml Q6H PRN ORAL dyspepsia 12/05/19 06:00 01/04/20 05:59 Albuterol/ Ipratropium (Albuterol/ Ipratropium) 3 ml Q6H PRN HHN Shortness of Breath 12/05/19 06:00 12/10/19 05:59 Amlodipine Besylate (Norvasc) 5 mg DAILY ORAL 12/07/19 18:15 01/06/20 18:14 12/09/19 08:35 Aspirin (Ecotrin) 81 mg DAILY ORAL 12/06/19 09:00 01/05/20 08:59 12/09/19 08:34 Bisacodyl (Dulcolax) 10 mg HSPRN PRN RECTAL Constipation 12/05/19 06:00 01/04/20 05:59 Dextrose (Dextrose 50%) 25 ml Q30M PRN IV Hypoglycemia 12/05/19 06:00 01/04/20 05:59 Dextrose (Dextrose 50%) 50 ml Q30M PRN IV Hypoglycemia 12/05/19 06:00 01/04/20 05:59 Diphenhydramine HCl (Benadryl) 25 mg Q6H PRN ORAL Itching/Pruritis 12/05/19 06:00 01/04/20 05:59 Docusate Sodium (Colace) 100 mg EVERY 12 HOURS ORAL 12/05/19 09:00 01/04/20 08:59 12/08/19 08:42 HCTZ/Losartan Potassium (Hyzaar 50-12.5mg) 1 tab DAILY ORAL 12/06/19 09:00 01/05/20 08:59 12/09/19 08:35 Heparin Sodium (Porcine) (Heparin 5000 units/ml) 5,000 units EVERY 12 HOURS SUBQ 12/05/19 21:00 01/04/20 20:59 12/09/19 08:33 Hydralazine HCl (Apresoline) 25 mg Q6H PRN ORAL SBP > 160 12/08/19 06:15 01/07/20 06:14 12/08/19 06:38 Hydromorphone HCl (Dilaudid) 1 mg Q4H PRN IVP Moderate Pain (Pain Scale 4-6) 12/07/19 13:45 12/12/19 05:59 12/09/19 17:37 Hydromorphone HCl (Dilaudid) 2 mg Q4H PRN IVP Severe Pain (Pain Scale 7-10) 12/05/19 06:00 12/12/19 05:59 12/08/19 23:56 Ondansetron HCl (Zofran) 4 mg Q6H PRN IVP Nausea & Vomiting 12/05/19 06:00 01/04/20 05:59 Chris Hubbard MD Dec 09, 2019 18:30
--- NOTE | 2019-12-09 19:35 | NUR ---
HAND-OFF: Report given to Jl RN.,aware of fall risk..
[2019-12-09 20:00] VITALS: BP 133/93
--- NOTE | 2019-12-09 20:09 | NUR ---
NURSE NOTES: Pt is in bed, awake and alert. No acute distress noted. Pt complains of pain, pain medication given as ordered PRN. Pt is given a bedpan to void. Pt is high risk for fall. Fall precaution in place. Bed alarm on. Pt instructed to call before attempting to get out of bed.Bed locked low in position,side rails up and call light within reach. Pt will be monitored. Unit staff, charge nurse and CNAs made aware to help monitor patient to prevent fall.
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
[2019-12-10] VITALS: BP 152/75
--- NOTE | 2019-12-10 03:18 | NUR ---
NURSE NOTES: Pt is in bed, asleep. No acute distress noted. Pt is not complaining of pain now.
[2019-12-10 04:00] VITALS: BP 154/86
[2019-12-10] MEDS: HYDROmorphone 1mg/ml Carpuject IVP PRN ×4 (04:14→21:44)
--- NOTE | 2019-12-10 07:05 | NUR ---
HAND-OFF: Report given to MELANIE Cabral.Informed that patient is High Fall Risk.
--- NOTE | 2019-12-10 07:26 | NUR ---
NURSE NOTES: Patient is awake and alert,respirations unlabored.Patient eating breakfast.Bed alarm on,call light within reach.
--- NOTE | 2019-12-10 07:47 | Pulmonology Progress Note ---
Assessment/Plan Assessment/Plan IMPRESSION: 1. Hypoxemia responsive to low flow oxygen, etiology likely secondary to splinting and atelectasis. 2. Right rib fracture. 3. Hypertension. DISCUSSION: Agree with admission and care. 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 Continue oxygen and pulmonary hygiene. Agree with surgery notes and assessment. Chris Hubbard M.D. Subjective Interval Events: Surgery noted reviewed; pt continues to complain of pain Constitutional: Reports: no symptoms HEENT: Repors: no symptoms Respiratory: Reports: no symptoms Cardiovascular: Reports: no symptoms Allergies: Coded Allergies: No Known Allergies (Verified , 03/28/07) Objective Last 24 Hour Vital Signs Date Time Temp Pulse Resp B/P (MAP) Pulse Ox O2 Delivery O2 Flow Rate FiO2 12/10/19 07:34 86 20 94 Nasal Cannula 2.0 28 12/10/19 07:34 94 Nasal Cannula 2.0 28 12/10/19 04:00 98.2 88 22 154/86 (108) 97 12/10/19 00:00 98.2 83 20 152/75 (100) 97 12/09/19 21:00 Room Air 12/09/19 20:00 97.8 80 20 133/93 (106) 96 12/09/19 19:58 96 Nasal Cannula 2.0 28 12/09/19 19:57 76 20 96 Nasal Cannula 2.0 28 12/09/19 16:00 97.6 90 18 149/70 (96) 93 12/09/19 12:00 97.0 89 20 130/81 (97) 93 12/09/19 09:00 Nasal Cannula 2.0 12/09/19 08:35 91 144/60 12/09/19 08:35 144/60 12/09/19 08:00 97.3 95 20 135/68 (90) 95 Intake and Output 12/09/19 12/10/19 19:00 07:00 Intake Total 600 ml 360 ml Output Total 100 ml Balance 500 ml 360 ml Intake Oral 600 ml Other 360 ml Output Urine Total 100 ml # Voids 1 2 General Appearance: no acute distress HEENT: normocephalic Respiratory/Chest: chest wall non-tender Cardiovascular: normal peripheral pulses Abdomen: normal bowel sounds Current Medications Medications (Trade) Dose Ordered Sig/Star Route PRN Reason Start Time Stop Time Status Last Admin Dose Admin Acetaminophen (Tylenol) 650 mg Q4H PRN ORAL Mild Pain (Pain Scale 1-3) 12/05/19 06:00 01/04/20 05:59 12/06/19 22:15 Acetaminophen/ Hydrocodone Bitart ([place] 5/325) 1 tab Q4H PRN ORAL Moderate Pain (Pain Scale 4-6) 12/07/19 13:39 12/14/19 13:38 12/07/19 22:35 Al Hydroxide/Mg Hydroxide (Mylanta II) 30 ml Q6H PRN ORAL dyspepsia 12/05/19 06:00 01/04/20 05:59 Amlodipine Besylate (Norvasc) 5 mg DAILY ORAL 12/07/19 18:15 01/06/20 18:14 12/09/19 08:35 Aspirin (Ecotrin) 81 mg DAILY ORAL 12/06/19 09:00 01/05/20 08:59 12/09/19 08:34 Bisacodyl (Dulcolax) 10 mg HSPRN PRN RECTAL Constipation 12/05/19 06:00 01/04/20 05:59 Dextrose (Dextrose 50%) 25 ml Q30M PRN IV Hypoglycemia 12/05/19 06:00 01/04/20 05:59 Dextrose (Dextrose 50%) 50 ml Q30M PRN IV Hypoglycemia 12/05/19 06:00 01/04/20 05:59 Diphenhydramine HCl (Benadryl) 25 mg Q6H PRN ORAL Itching/Pruritis 12/05/19 06:00 01/04/20 05:59 Docusate Sodium (Colace) 100 mg EVERY 12 HOURS ORAL 12/05/19 09:00 01/04/20 08:59 12/08/19 08:42 HCTZ/Losartan Potassium (Hyzaar 50-12.5mg) 1 tab DAILY ORAL 12/06/19 09:00 01/05/20 08:59 12/09/19 08:35 Heparin Sodium (Porcine) (Heparin 5000 units/ml) 5,000 units EVERY 12 HOURS SUBQ 12/05/19 21:00 01/04/20 20:59 12/09/19 21:48 Hydralazine HCl (Apresoline) 25 mg Q6H PRN ORAL SBP > 160 12/08/19 06:15 01/07/20 06:14 12/08/19 06:38 Hydromorphone HCl (Dilaudid) 1 mg Q4H PRN IVP Moderate Pain (Pain Scale 4-6) 12/07/19 13:45 12/12/19 05:59 12/10/19 04:14 Hydromorphone HCl (Dilaudid) 2 mg Q4H PRN IVP Severe Pain (Pain Scale 7-10) 12/05/19 06:00 12/12/19 05:59 12/08/19 23:56 Ondansetron HCl (Zofran) 4 mg Q6H PRN IVP Nausea & Vomiting 12/05/19 06:00 01/04/20 05:59 Chris Hubbard MD Dec 10, 2019 07:47
[2019-12-10 08:05] VITALS: BP 132/51
[2019-12-10] MEDS: Docusate 100mg cap ORAL SCH ×2 (08:09→21:00)
[2019-12-10] MEDS: Aspirin EC 81mg tab ORAL SCH (08:16)
[2019-12-10] MEDS: Hyzaar 50-12.5mg tab ORAL SCH (08:16)
[2019-12-10] MEDS: Heparin 5000 units/ml inj SUBQ SCH ×2 (09:21→21:45)
[2019-12-10 12:00] VITALS: BP 142/65
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
--- NOTE | 2019-12-10 14:02 | General Progress Note ---
Assessment/Plan Status: stable Assessment/Plan: Ms. Aguilar is a 69 year old female with hx of prior falls, left femur fx, HTN presenting with a fall, MSK chest pain. #Falls #Deconditioning #Failure to thrive #Old rib fractures -CXR: old fractures, not new. -General surgery consulted for rib fx, likely old, no surgical intervention at this time -Cont. PT -Will likely need SNF or 24/7 career services coordinator given inability to care for herself and frequent falls. d/w pt, she does not want SNF at this time -CM for dispo planning -weaning pt off IV pain meds, pain control #HTN #Hypertensive urgency - resolved. -Continue home Hyzaar 50-12.5 -Amlodipine 5 mg daily added due to high BP -prn hydralazine IV #Anxiety/depression. #Somnolence - improved #?undiagnosed psych disorder -Discontinued home Zoloft and qhs prn temazepam, given somnolence during initial hospitalization. -Will reintroduce as needed. -Psych: Recommend the patient to be discharged home only with 24 x 7 caregiver. #Acute hypoxic respiratory failure #SOB #Cough -Pulm consult placed. appreciate recs. -Supplemental oxygen as needed. #HTN -Continue home HTN. Time spent on encounter: 36 mins, >50% on counseling and coordination of care. Time of note doesn't reflect time of encounter. Subjective Constitutional: Denies: no symptoms, chills, diaphoresis, fever, malaise, weakness, other HEENT: Denies: no symptoms, eye pain, blurred vision, tearing, double vision, ear pain, ear discharge, nose pain, nose congestion, throat pain, throat swelling, mouth pain, mouth swelling, other Cardiovascular: Denies: no symptoms, chest pain, edema, irregular heart rate, lightheadedness, palpitations, syncope, other Respiratory: Denies: no symptoms, cough, orthopnea, shortness of breath, SOB with excertion, SOB at rest, sputum, stridor, wheezing, other Gastrointestinal/Abdominal: Denies: no symptoms, abdomen distended, abdominal pain, black stools, tarry stools, blood in stool, constipated, diarrhea, difficulty swallowing, nausea, poor appetite, poor fluid intake, rectal bleeding , vomiting, other Genitourinary: Denies: no symptoms, burning, discharge, frequency, flank pain, hematuria, incontinence, pain, urgency, other Neurologic/Psychiatric: Denies: no symptoms, anxiety, depressed, emotional problems, headache, numbness, paresthesia, pre-existing deficit, seizure, tingling, tremors, weakness, other Allergies: Coded Allergies: No Known Allergies (Verified , 03/28/07) Subjective No acute events overnight, pt states she is tolerating PT. D/w pt need to wean off IV pain meds for d/c planning. Pt denies any CP, SOB, abd pain, dysuria. Objective Last 24 Hour Vital Signs Date Time Temp Pulse Resp B/P (MAP) Pulse Ox O2 Delivery O2 Flow Rate FiO2 12/10/19 12:00 97.9 82 18 142/65 (90) 95 12/10/19 09:00 Room Air 12/10/19 08:16 86 132/51 12/10/19 08:16 132/51 12/10/19 08:05 97.3 86 20 132/51 (78) 97 12/10/19 07:34 86 20 94 Nasal Cannula 2.0 28 12/10/19 07:34 94 Nasal Cannula 2.0 28 12/10/19 04:00 98.2 88 22 154/86 (108) 97 12/10/19 00:00 98.2 83 20 152/75 (100) 97 12/09/19 21:00 Room Air 12/09/19 20:00 97.8 80 20 133/93 (106) 96 12/09/19 19:58 96 Nasal Cannula 2.0 28 12/09/19 19:57 76 20 96 Nasal Cannula 2.0 28 12/09/19 16:00 97.6 90 18 149/70 (96) 93 Intake and Output 12/09/19 12/10/19 19:00 07:00 Intake Total 600 ml 360 ml Output Total 100 ml Balance 500 ml 360 ml Intake Oral 600 ml Other 360 ml Output Urine Total 100 ml # Voids 1 2 Height (Feet): 5 Height (Inches): 4.00 Weight (Pounds): 195 Objective General Appearance: no apparent distress, alert, awake Neck: supple Cardiovascular: normal rate, regular rhythm Respiratory/Chest: lungs clear, normal breath sounds Abdomen: non tender/non-distended, soft Ext: no edema Goddard,NguyenVy M.D. Dec 10, 2019 14:02
[2019-12-10 16:00] VITALS: BP 159/75
[2019-12-10] MEDS ORDERED: HYDROmorphone 1mg/ml Carpuject IVP PRN (17:45)
[2019-12-10] MEDS: oxyCODONE 5mg IR tab ORAL PRN (17:52)
--- NOTE | 2019-12-10 18:59 | NUR ---
NURSE NOTES: Patient resting,respirations unlabored,bed alarm on,call light within reach.
--- NOTE | 2019-12-10 19:30 | NUR ---
HAND-OFF: Report given to PATTI RN, aware fall risk remain.
[2019-12-10 20:00] VITALS: BP 154/78
[2019-12-11] VITALS (7 sets, daily range): BP systolic 134–178; BP diastolic 64–88
[2019-12-11] MEDS: HYDROmorphone 1mg/ml Carpuject IVP PRN ×3 (02:08→23:52)
--- NOTE | 2019-12-11 06:00 | NUR ---
NURSE NOTES: Pt still complains of back pain, reluctant to take oxycodone PO as pain medication, prefers Dilaudid IV. Pt appears comfortable but rates pain 7/10 2when asked. Pt also wants to go home and refuses to go to SNF.
[2019-12-11] MEDS: oxyCODONE 5mg IR tab ORAL PRN ×2 (06:06→16:11)
--- NOTE | 2019-12-11 07:25 | NUR ---
HAND-OFF: Report given to Raphael Vela RN. Addendum: 12/11/19 at 0750 by PATTI WHALEN RN RN Informed that pt is High fall risk status.
--- NOTE | 2019-12-11 07:55 | NUR ---
NURSE NOTES: Patient alert x3, confused; on room air, no sing of distress and shortness of breath; no sing of chest pain; IV Right-Shoulder 24G flushes well; patient's own walker at the bed side; patient fall risk, bed at lowest position, breaks engaged, bed alarm on, rehab nursing tech Teresa informed that patient risk for fall; will care plan or care as scheduled; call light within reach; will keep monitoring.
[2019-12-11] MEDS: Hyzaar 50-12.5mg tab ORAL SCH (08:39)
[2019-12-11] MEDS: Heparin 5000 units/ml inj SUBQ SCH ×2 (08:40→20:55)
[2019-12-11] MEDS: Aspirin EC 81mg tab ORAL SCH (08:42)
[2019-12-11] MEDS: Docusate 100mg cap ORAL SCH ×2 (08:42→20:55)
--- NOTE | 2019-12-11 09:23 | NUR ---
*-* DISCHARGE SUMMARY *-* PATIENT HAS BEEN REFERRED TO: [facility] P: [phone] F: [phone] EFAX: [phone] Addendum: 12/11/19 at 1047 by HALINA PAULA LVN LVN CORRECTION EFAX: [phone] CLINICALS REFAXED TO [facility] FAX # Addendum: 12/11/19 at 1208 by HALINA PAULA LVN LVN PER [facility] AT [facility], PATIENT ACCEPTED WITH ROOM ASSIGNMENT FOLLOWS 109-A SKILLED WILL DISCHARGE UPON RECEIPT OF OFFICIAL DC ORDER
[2019-12-11 09:52] LABS: BASOPHILS % (AUTO) 0.9 % (0.0-2.0); EOSINOPHILS % (AUTO) 2.6 % (0.0-3.0); HEMOGLOBIN 12.4 G/DL (12.0-16.0); LYMPHOCYTES % (AUTO) 23.5 % (20.0-45.0); MEAN CORPUSCULAR VOLUME 87 FL (80-99); MONOCYTES % (AUTO) 5.3 % (1.0-10.0); NEUTROPHILS % (AUTO) 67.8 % (45.0-75.0); PLATELET COUNT 273 K/UL (150-450); RED BLOOD COUNT 4.37 M/UL (4.20-5.40); RED CELL DISTRIBUTION WIDTH 14.2 % (11.6-14.8); WHITE BLOOD COUNT 9.7 K/UL (4.8-10.8)
[2019-12-11 10:14] LABS: ANION GAP 12 mmol/L (5-15); BLOOD UREA NITROGEN 13 mg/dL (7-18); CARBON DIOXIDE 28 MMOL/L (21-32); CHLORIDE 102 MMOL/L (98-107); CREATININE 0.8 MG/DL (0.55-1.30); POTASSIUM 3.3 MMOL/L (3.5-5.1); SODIUM 142 MMOL/L (136-145)
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
--- NOTE | 2019-12-11 12:49 | NUR ---
NURSE NOTES: Patient's K 3.3, I communicated MD Malave regarding the matter. Waiting for order.
[2019-12-11] MEDS: HydrALAZINE 25mg tab ORAL PRN (13:59)
--- NOTE | 2019-12-11 14:28 | Pulmonology Progress Note ---
Assessment/Plan Assessment/Plan IMPRESSION: 1. Hypoxemia responsive to low flow oxygen, etiology likely secondary to splinting and atelectasis. 2. Right rib fracture. 3. Hypertension. DISCUSSION: Agree with admission and care. I will follow as corn sheller. Continue oxygen and pulmonary hygiene. discharge planning to [facility] Agree with surgery notes and assessment. Chris Hubbard M.D. Subjective Interval Events: none new Constitutional: Reports: no symptoms HEENT: Repors: no symptoms Respiratory: Reports: no symptoms Cardiovascular: Reports: no symptoms Gastrointestinal/Abdominal: Reports: no symptoms Allergies: Coded Allergies: No Known Allergies (Verified , 03/28/07) Objective Last 24 Hour Vital Signs Date Time Temp Pulse Resp B/P (MAP) Pulse Ox O2 Delivery O2 Flow Rate FiO2 12/11/19 13:59 167/76 12/11/19 12:00 99.4 99 20 167/76 (106) 95 12/11/19 09:11 98.7 12/11/19 09:00 Room Air 12/11/19 08:39 104 178/88 12/11/19 08:39 178/88 12/11/19 08:00 98.7 104 20 178/88 (118) 98 12/11/19 04:00 97.4 85 18 144/72 (96) 95 12/11/19 00:00 97.8 82 18 147/70 (95) 95 12/10/19 21:00 Room Air 12/10/19 20:00 98.2 87 18 154/78 (103) 95 12/10/19 20:00 95 Nasal Cannula 2.0 28 12/10/19 16:00 97.9 91 18 159/75 (103) 95 Intake and Output 12/10/19 12/11/19 19:00 07:00 Intake Total 540 ml 640 ml Balance 540 ml 640 ml Intake Oral 540 ml 640 ml # Voids 2 2 General Appearance: no acute distress HEENT: normocephalic Respiratory/Chest: chest wall non-tender Cardiovascular: normal peripheral pulses Abdomen: normal bowel sounds Laboratory Tests 12/11/19 09:00: White Blood Count 9.7, Red Blood Count 4.37, Hemoglobin 12.4, Hematocrit 38.0, Mean Corpuscular Volume 87, Mean Corpuscular Hemoglobin 28.3, Mean Corpuscular Hemoglobin Concent 32.5, Red Cell Distribution Width 14.2, Platelet Count 273, Mean Platelet Volume 7.5, Neutrophils (%) (Auto) 67.8, Lymphocytes (%) (Auto) 23.5, Monocytes (%) (Auto) 5.3, Eosinophils (%) (Auto) 2.6, Basophils (%) (Auto ) 0.9, Sodium Level 142, Potassium Level 3.3L, Chloride Level 102, Carbon Dioxide Level 28, Anion Gap 12, Blood Urea Nitrogen 13, Creatinine 0.8, Estimat Glomerular Filtration Rate > 60, Glucose Level 142H, Calcium Level 10.0 Current Medications Medications (Trade) Dose Ordered Sig/Star Route PRN Reason Start Time Stop Time Status Last Admin Dose Admin Acetaminophen (Tylenol) 650 mg Q4H PRN ORAL Mild Pain (Pain Scale 1-3) 12/05/19 06:00 01/04/20 05:59 12/06/19 22:15 Al Hydroxide/Mg Hydroxide (Mylanta II) 30 ml Q6H PRN ORAL dyspepsia 12/05/19 06:00 01/04/20 05:59 Amlodipine Besylate (Norvasc) 5 mg DAILY ORAL 12/07/19 18:15 01/06/20 18:14 12/11/19 08:39 Aspirin (Ecotrin) 81 mg DAILY ORAL 12/06/19 09:00 01/05/20 08:59 12/11/19 08:42 Bisacodyl (Dulcolax) 10 mg HSPRN PRN RECTAL Constipation 12/05/19 06:00 01/04/20 05:59 Dextrose (Dextrose 50%) 25 ml Q30M PRN IV Hypoglycemia 12/05/19 06:00 01/04/20 05:59 Dextrose (Dextrose 50%) 50 ml Q30M PRN IV Hypoglycemia 12/05/19 06:00 01/04/20 05:59 Diphenhydramine HCl (Benadryl) 25 mg Q6H PRN ORAL Itching/Pruritis 12/05/19 06:00 01/04/20 05:59 Docusate Sodium (Colace) 100 mg EVERY 12 HOURS ORAL 12/05/19 09:00 01/04/20 08:59 12/08/19 08:42 HCTZ/Losartan Potassium (Hyzaar 50-12.5mg) 1 tab DAILY ORAL 12/06/19 09:00 01/05/20 08:59 12/11/19 08:39 Heparin Sodium (Porcine) (Heparin 5000 units/ml) 5,000 units EVERY 12 HOURS SUBQ 12/05/19 21:00 01/04/20 20:59 12/11/19 08:40 Hydralazine HCl (Apresoline) 25 mg Q6H PRN ORAL SBP > 160 12/08/19 06:15 01/07/20 06:14 12/11/19 13:59 Hydromorphone HCl (Dilaudid) 1 mg Q4H PRN IVP Pain Scale 4-10 12/10/19 17:45 12/12/19 05:59 12/11/19 08:41 Ondansetron HCl (Zofran) 4 mg Q6H PRN IVP Nausea & Vomiting 12/05/19 06:00 01/04/20 05:59 Oxycodone HCl (Roxicodone) 10 mg Q4H PRN ORAL Severe Pain (Pain Scale 7-10) 12/10/19 14:00 12/17/19 13:59 12/11/19 06:06 Chris Hubbard MD Dec 11, 2019 14:28
--- NOTE | 2019-12-11 14:59 | NUR ---
NURSE NOTES: Patient's blood pressure is 167/76, and Hydralazine 25 mg given, will keep monitoring.
--- NOTE | 2019-12-11 15:24 | NUR ---
CASE MANAGEMENT:REVIEW SI;FALL. FTT. HTN. AC HYPOXIC RESP FAILURE. 99.4 104 20 178/88 95% ON RA K+ 3.3 IS;DILAUDID IV Q4 HRS PRN OXYCODONE PO QR HRS PRN HYDRALAZINE PO Q6 HRS PRN SBP >160 ASA PO QD NORVASC PO QD HYZAAR PO QD MED SURG STATUS DCP;TO [facility]
[2019-12-11] MEDS ORDERED: HYDROmorphone 2mg tab ORAL PRN (16:15)
--- NOTE | 2019-12-11 16:26 | General Progress Note ---
Assessment/Plan Status: stable Assessment/Plan: Ms. Aguilar is a 69 year old female with hx of prior falls, left femur fx, HTN presenting with a fall, MSK chest pain. #Falls #Deconditioning #Failure to thrive #Old rib fractures -CXR: old fractures, not new. -General surgery consulted for rib fx, likely old, no surgical intervention at this time -PT recommends structured setting -Patient agreeable to SNF, will go to [facility] tomorrow -Start oral Dilaudid #HTN, uncontrolled #Hypertensive urgency - resolved. -Continue home Hyzaar 50-12.5 -Increase Norvasc to 10 mg daily -prn hydralazine IV #Anxiety/depression. #Somnolence - improved #?undiagnosed psych disorder -Discontinued home Zoloft and qhs prn temazepam, given somnolence during initial hospitalization. -Will reintroduce as needed. -Psych following #Acute hypoxic respiratory failure #SOB #Cough -Pulm consult placed. appreciate recs. -Supplemental oxygen as needed. #HTN -Continue home HTN. Time spent on encounter: 35 mins, >50% on counseling and coordination of care. I spent an additional 36 minutes on review of medical records including prior outside hospital records, consult notes, progress notes, procedures, imaging, labs, hemodynamics, and other clinical documentation. Subjective Date patient seen: Dec 11, 2019 Time patient seen: 12:00 ROS Limited/Unobtainable: No Constitutional: Denies: chills, fever HEENT: Denies: eye pain Cardiovascular: Denies: chest pain, edema Respiratory: Denies: cough, orthopnea Gastrointestinal/Abdominal: Denies: abdomen distended, abdominal pain Neurologic/Psychiatric: Denies: anxiety, depressed Allergies: Coded Allergies: No Known Allergies (Verified , 03/28/07) Subjective Follow up for uncontrolled HTN, multiple falls, gait instability, old rib fractures No new complaints. Agreeable to SNF Objective Last 24 Hour Vital Signs Date Time Temp Pulse Resp B/P (MAP) Pulse Ox O2 Delivery O2 Flow Rate FiO2 12/11/19 16:00 98.0 105 20 168/81 (110) 93 12/11/19 13:59 167/76 12/11/19 12:00 99.4 99 20 167/76 (106) 95 12/11/19 09:11 98.7 12/11/19 09:00 Room Air 12/11/19 08:39 104 178/88 12/11/19 08:39 178/88 12/11/19 08:00 98.7 104 20 178/88 (118) 98 12/11/19 04:00 97.4 85 18 144/72 (96) 95 12/11/19 00:00 97.8 82 18 147/70 (95) 95 12/10/19 21:00 Room Air 12/10/19 20:00 98.2 87 18 154/78 (103) 95 12/10/19 20:00 95 Nasal Cannula 2.0 28 Intake and Output 12/10/19 12/11/19 19:00 07:00 Intake Total 540 ml 640 ml Balance 540 ml 640 ml Intake Oral 540 ml 640 ml # Voids 2 2 Laboratory Tests 12/11/19 09:00: White Blood Count 9.7, Red Blood Count 4.37, Hemoglobin 12.4, Hematocrit 38.0, Mean Corpuscular Volume 87, Mean Corpuscular Hemoglobin 28.3, Mean Corpuscular Hemoglobin Concent 32.5, Red Cell Distribution Width 14.2, Platelet Count 273, Mean Platelet Volume 7.5, Neutrophils (%) (Auto) 67.8, Lymphocytes (%) (Auto) 23.5, Monocytes (%) (Auto) 5.3, Eosinophils (%) (Auto) 2.6, Basophils (%) (Auto ) 0.9, Sodium Level 142, Potassium Level 3.3L, Chloride Level 102, Carbon Dioxide Level 28, Anion Gap 12, Blood Urea Nitrogen 13, Creatinine 0.8, Estimat Glomerular Filtration Rate > 60, Glucose Level 142H, Calcium Level 10.0 Height (Feet): 5 Height (Inches): 4.00 Weight (Pounds): 195 General Appearance: no apparent distress, alert Neck: normal alignment, supple Cardiovascular: normal rate, regular rhythm Respiratory/Chest: lungs clear, normal breath sounds Abdomen: non tender, soft Neurologic: merchandising lead II-XII grossly normal, no motor/sensory deficits Vidal Lange MD Dec 11, 2019 16:26
--- NOTE | 2019-12-11 19:14 | NUR ---
HAND-OFF: Report given to MELANIE Diehl. Endorsed to the incoming nure that patient is risk for fall, multiple fall history, unsteady gait;
--- NOTE | 2019-12-11 19:57 | NUR ---
NURSE NOTES: Received patient in bed, awake and alert. No acute distress noted. Pt is high risk for fall. Fall precaution in place. Bed alarm on. Pt instructed to call before attempting to get out of bed. Bed locked low in position, 3 side rails up and call light and belongings within reach. Unit staff, charge nurse and CNAs made aware of patient's high fall risk status.
[2019-12-12] VITALS: BP 135/71
[2019-12-12 04:00] VITALS: BP 147/68
[2019-12-12] MEDS: HYDROmorphone 1mg/ml Carpuject IVP PRN ×2 (04:06→08:49)
--- NOTE | 2019-12-12 06:30 | Progress Note ---
DATE: 12/05/2019 SUBJECTIVE: The patient is in bed. She is having anxiety, episodes of depression. Confused about the situation she is in. Needs redirection. The patient is unable to understand, process, communicate rationally. The patient The patient from halfway. The patient does not understand that she needs to have full-term care. MENTAL STATUS EXAMINATION: The patient is alert, oriented times self. Mood is anxious. Affect is concrete. Thought content - no suicidal, homicidal ideation. Cognition is impaired. Insight and judgment is impaired. ASSESSMENT: 1. Major depressive disorder. 2. Cognitive impairment. PLAN: 1. We will continue current medications. 2. Provide the patient with reality orientation and supportive therapy. Sindy Francois M.D. DR: Mike JOB#: [id number] CC: KIMBERLY
--- NOTE | 2019-12-12 07:10 | NUR ---
HAND-OFF: Report given to MELANIE Vela.
[2019-12-12 08:00] VITALS: BP 154/68
--- NOTE | 2019-12-12 08:00 | NUR ---
NURSE NOTES: Patient alert x3, confused; on room air, no sing of distress and shortness of breath; no sing of chest pain; patient's own walker at the bed side; patient risk for fall, sing at the door, bed at lowest position, side rails up x2, breaks engaged, bed alarm on, acute care nursing assistant Christiano notified that patient is risk for fall; call light within reach; patient instructed to call for help; will keep monitoring.
[2019-12-12] MEDS: Aspirin EC 81mg tab ORAL SCH (08:53)
[2019-12-12] MEDS: Docusate 100mg cap ORAL SCH (08:53)
[2019-12-12 08:54] VITALS: BP 154/68
[2019-12-12] MEDS: Hyzaar 50-12.5mg tab ORAL SCH (08:54)
[2019-12-12] MEDS: Heparin 5000 units/ml inj SUBQ SCH (08:55)
--- NOTE | 2019-12-12 09:37 | NUR ---
DISCHARGE PLANNING PATIENT TO BE DISCHARGED TO [address] [place] [address] P: [phone] PER LEONARDO, ROOM ASSIGNMENT [facility] AMB[facility] TRANSPORTATION SCHEDULED WITH [facility] @ EXT [id number] WITH ETA @ 1200 PM PER [facility]BA CHARGE NURSE ALEXEI ROMERO
[2019-12-12] MEDS ORDERED: NORVASC10 MG ORAL (10:28)
[2019-12-12] MEDS ORDERED: FLUOXETINE HCL20 MG ORAL (10:28)
[2019-12-12] MEDS ORDERED: HYDROmorphone ORAL (10:29)
--- NOTE | 2019-12-12 10:38 | Discharge Summary ---
Discharge Summary Hospital Course Date of Admission Dec 05, 2019 at 03:51 Date of Discharge 12/12/19 Admitting Diagnosis BILATERAL RIB FRACTURES HPI Mariposa Aguilar is a 69 year old female who was admitted on Dec 05, 2019 at 03:51 for Bilateral Rib Fractures Consultations Surgery Psychiatry Pulm Procedures None Hospital Course Ms. Aguilar is a 69 year old female with hx of prior falls, left femur fx, HTN presenting with a fall, MSK chest pain. She was evaluated by general surgery, felt to have old rib fractures. She was treated supportively with oral Dilaudid with improvement in her pain. Seen by PT, SNF was recommended. Seen by Psychiatry, she was started on fluoxetine 20 mg daily. Patient's HTN was uncontrolled, started on amlodipine 10 mg daily with improvement in pressures. She will be discharged to [facility] in improved condition #Falls #Deconditioning #Failure to thrive #Old rib fractures #HTN, uncontrolled #Hypertensive urgency - resolved. #Anxiety/depression. #Acute hypoxic respiratory failure, resolved #SOB #Cough. #HTN Time spent on preparing discharge was : 35 mins, >50% on counseling and coordination of care. Discharge Medications New Medications: Amlodipine Besylate (Norvasc) 10 Mg Tablet 10 MG ORAL DAILY for 30 Days, #30 TAB Fluoxetine Hcl* (Fluoxetine Hcl*) 20 Mg Capsule 20 MG ORAL DAILY for 30 Days, #30 CAP [HYDROmorphone] () 2 MG TAB 2 MG ORAL Q4H PRN for 15 Days, #45 Continued Medications: Aspirin* (Aspir 81*) 81 Mg Tablet.dr 81 MG ORAL DAILY, TAB (This prescription has been renewed) Ipratropium/Albuterol Sulfate (DuoNeb 0.5-3(2.5)mg/3ml) 3 Ml Ampul.neb 3 ML HHN Q4HRT PRN for 30 Days, #100 EA Losartan/Hydrochlorothiazide 50-12.5 Tablet* (Hyzaar 50-12.5 Tablet*) 1 Each Tablet 1 TAB ORAL DAILY for 30 Days, #30 TAB Rosuvastatin Calcium* (Crestor*) 20 Mg Tablet 20 MG ORAL BEDTIME Temazepam* (Restoril*) 15 Mg Capsule 15 MG ORAL BEDTIME PRN for Insomnia, CAP (This prescription has been renewed) Discontinued Medications: Sertraline Hcl* (Zoloft*) 100 Mg Tablet 200 MG ORAL DAILY, TAB Discharge Condition Upon Discharge: improving Discharge Vital Signs Last Vital Signs Date Time Temp Pulse Resp B/P (MAP) Pulse Ox O2 Delivery O2 Flow Rate FiO2 12/12/19 09:19 98.1 12/12/19 08:54 154/68 12/12/19 08:53 86 12/12/19 08:00 18 97 12/11/19 20:53 Room Air 12/10/19 20:00 2.0 28 Discharge Disposition Patient was discharged to SNF Discharge Diagnoses: (1) Costochondritis (2) HTN (hypertension) (3) Fall (4) Anxiety (5) Ribs, multiple fractures (6) Bronchitis Vidal Lange MD Dec 12, 2019 10:38
--- NOTE | 2019-12-12 10:53 | NUR ---
NURSE NOTES: Patient's next of kin, Susy Kelly notified of patient discharge to [facility];
--- NOTE | 2019-12-12 11:02 | NUR ---
NURSE NOTES: Report given to MELANIE Smallwood at [facility]; patient waiting for ambulance;
--- NOTE | 2019-12-12 12:05 | Pulmonology Progress Note ---
Assessment/Plan Assessment/Plan IMPRESSION: 1. Hypoxemia responsive to low flow oxygen, etiology likely secondary to splinting and atelectasis. 2. Right rib fracture. 3. Hypertension. DISCUSSION: Agree with admission and care. I will follow as manager front. Continue oxygen and pulmonary hygiene. discharge planning to intermediate Agree with surgery notes and assessment. Chris Hubbard M.D. Subjective Interval Events: None new Constitutional: Reports: no symptoms HEENT: Repors: no symptoms Respiratory: Reports: no symptoms Cardiovascular: Reports: no symptoms Gastrointestinal/Abdominal: Reports: no symptoms Genitourinary: Reports: no symptoms Allergies: Coded Allergies: No Known Allergies (Verified , 03/28/07) Objective Last 24 Hour Vital Signs Date Time Temp Pulse Resp B/P (MAP) Pulse Ox O2 Delivery O2 Flow Rate FiO2 12/12/19 09:19 98.1 12/12/19 08:54 154/68 12/12/19 08:53 86 154/68 12/12/19 08:00 98.1 86 18 154/68 (96) 97 12/12/19 04:00 98.7 84 21 147/68 (94) 95 12/12/19 00:00 97.9 93 21 135/71 (92) 95 12/11/19 20:53 Room Air 12/11/19 20:00 98.0 89 21 139/64 (89) 95 12/11/19 16:49 98.0 80 20 134/75 (94) 94 12/11/19 16:00 98.0 105 20 168/81 (110) 93 12/11/19 13:59 167/76 Intake and Output 12/11/19 12/12/19 19:00 07:00 Intake Total 600 ml Balance 600 ml Intake Oral 600 ml # Voids 4 1 General Appearance: no acute distress HEENT: normocephalic Respiratory/Chest: chest wall non-tender, lungs clear Cardiovascular: normal peripheral pulses Abdomen: normal bowel sounds Current Medications Medications (Trade) Dose Ordered Sig/Star Route PRN Reason Start Time Stop Time Status Last Admin Dose Admin Acetaminophen (Tylenol) 650 mg Q4H PRN ORAL Mild Pain (Pain Scale 1-3) 12/05/19 06:00 01/04/20 05:59 12/06/19 22:15 Al Hydroxide/Mg Hydroxide (Mylanta II) 30 ml Q6H PRN ORAL dyspepsia 12/05/19 06:00 01/04/20 05:59 Amlodipine Besylate (Norvasc) 10 mg DAILY ORAL 12/12/19 09:00 01/06/20 18:14 12/12/19 08:53 Aspirin (Ecotrin) 81 mg DAILY ORAL 12/06/19 09:00 01/05/20 08:59 12/12/19 08:53 Bisacodyl (Dulcolax) 10 mg HSPRN PRN RECTAL Constipation 12/05/19 06:00 01/04/20 05:59 Dextrose (Dextrose 50%) 25 ml Q30M PRN IV Hypoglycemia 12/05/19 06:00 01/04/20 05:59 Dextrose (Dextrose 50%) 50 ml Q30M PRN IV Hypoglycemia 12/05/19 06:00 01/04/20 05:59 Diphenhydramine HCl (Benadryl) 25 mg Q6H PRN ORAL Itching/Pruritis 12/05/19 06:00 01/04/20 05:59 Docusate Sodium (Colace) 100 mg EVERY 12 HOURS ORAL 12/05/19 09:00 01/04/20 08:59 12/12/19 08:53 Fluoxetine HCl (PROzac) 20 mg DAILY ORAL 12/12/19 09:00 01/11/20 08:59 12/12/19 08:53 HCTZ/Losartan Potassium (Hyzaar 50-12.5mg) 1 tab DAILY ORAL 12/06/19 09:00 01/05/20 08:59 12/12/19 08:54 Heparin Sodium (Porcine) (Heparin 5000 units/ml) 5,000 units EVERY 12 HOURS SUBQ 12/05/19 21:00 01/04/20 20:59 12/12/19 08:55 Hydralazine HCl (Apresoline) 25 mg Q6H PRN ORAL SBP > 160 12/08/19 06:15 01/07/20 06:14 12/11/19 13:59 Hydromorphone HCl (Dilaudid) 1 mg Q4H PRN IVP Severe Breakthru Pain (>7) 12/11/19 16:30 12/18/19 16:29 12/12/19 08:49 Hydromorphone HCl (Dilaudid) 2 mg Q4H PRN ORAL PAIN 4-12/11/19 16:15 12/18/19 16:14 Ondansetron HCl (Zofran) 4 mg Q6H PRN IVP Nausea & Vomiting 12/05/19 06:00 01/04/20 05:59 Risperidone (RisperDAL) 1 mg BEDTIME ORAL 12/12/19 21:00 01/26/20 20:59 Chris Hubbard MD Dec 12, 2019 12:05
--- NOTE | 2019-12-12 13:20 | NUR ---
NURSE NOTES: Patient discharged to [facility]; family member Susy Kelly notified of patient's discharge to this facility; report given to MELANIE Smallwood at [facility]; patient left the floor by lon accompanied by two life line ambulance personnel; IV acces and name tag removed upon discharge; belonging lists checked and signed by patient and primary nurse; patient education given regarding the medications and side effect; patient is stable upon discharge.
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
--- NOTE | 2019-12-12 23:30 | Progress Note ---
DATE: 12/05/2019 SUBJECTIVE: The patient is in bed, no acute distress noted,engaged today. She is going to be discharged today. No episodes of agitation. MENTAL STATUS EXAMINATION: The patient is alert and oriented times self, place, situation. Mood is neutral. Affect is flat. Thought process is concrete. Thought content, no suicidal or homicidal ideation. ASSESSMENT: Stable. PLAN: 1. We will continue current medications. 2. Provide the patient with reality orientation and supportive therapy. Sindy Francois M.D. DR: CHRIS JOB#: [id number] CC: KIMBERLY
== END 2019-12-12 13:16 | DRG 205 ==
LOC: EDBD 00:42 → EMR 01:17 → 4E 03:51 → EDBEDREQ 04:09 → 4E 16:49
DX: M94.0 Chondrocostal junction syndrome [Tietze] (principal); J96.00 Acute respiratory failure, unspecified whether with hypoxia or hypercapnia; S22.41XD Multiple fractures of ribs, right side, subsequent encounter for fracture with routine healing; X58.XXXD Exposure to other specified factors, subsequent encounter; F41.8 Other specified anxiety disorders; Z79.82 Long term (current) use of aspirin; I16.0 Hypertensive urgency; J40 Bronchitis, not specified as acute or chronic; J44.9 Chronic obstructive pulmonary disease, unspecified; M19.90 Unspecified osteoarthritis, unspecified site; Z91.81 History of falling; I10 Essential (primary) hypertension
CPT/HCPCS: 36415; 70450; 71045; 71250; 80048; 80053; 85025; 85651; 86140; 94664; 96372; 96374; 96375; 96376; 99285; J2405

== ENCOUNTER 2020-05-31 12:15 | Emergency (ER) | payer MEDICARE, OTHER ==
[~2020-05-31] VITALS: Ht 165.1 cm; Wt 87.5 kg
[~2020-05-31 12:15] MED LIST changes: +FLUOXETINE HCL20 MG ORAL; +HYDROmorphone ORAL; +NORVASC10 MG ORAL
[2020-05-31 12:57] VITALS: BP 154/89
[2020-05-31] MEDS ORDERED: Morphine Sulfate 2mg/ml Inj(IV/IM USE ONLY) IVP ONE (13:00)
[2020-05-31 13:37] LABS: BASOPHILS % (AUTO) 1.3 % (0.0-2.0); HEMATOCRIT 39.6 % (37.0-47.0); HEMOGLOBIN 12.2 G/DL (12.0-16.0); LYMPHOCYTES % (AUTO) 27.3 % (20.0-45.0); MEAN CORPUSCULAR VOLUME 88 FL (80-99); MONOCYTES % (AUTO) 6.5 % (1.0-10.0); NEUTROPHILS % (AUTO) 62.9 % (45.0-75.0); PLATELET COUNT 192 K/UL (150-450); RED BLOOD COUNT 4.52 M/UL (4.20-5.40); RED CELL DISTRIBUTION WIDTH 15.2 % (11.6-14.8); WHITE BLOOD COUNT 9.6 K/UL (4.8-10.8)
[2020-05-31] MEDS ORDERED: Morphine Sulfate 4mg/ml Inj (IV USE ONLY) IVP ONE (13:45)
[2020-05-31 13:52] LABS: ANION GAP 9 mmol/L (5-15); BLOOD UREA NITROGEN 13 mg/dL (7-18); CALCIUM 9.2 MG/DL (8.5-10.1); CARBON DIOXIDE 29 MMOL/L (21-32); CHLORIDE 106 MMOL/L (98-107); POTASSIUM 3.9 MMOL/L (3.5-5.1); SODIUM 144 MMOL/L (136-145)
[2020-05-31 14:10] LABS: ALANINE AMINOTRANSFERASE 26 U/L (12-78); ALBUMIN/GLOBULIN RATIO 1.2 (1.0-2.7); ALKALINE PHOSPHATASE 93 U/L (46-116); ASPARTATE AMINO TRANSFERASE 24 U/L (15-37); BILIRUBIN,TOTAL 0.3 MG/DL (0.2-1.0)
--- NOTE | 2020-05-31 14:46 | Diagnostic Imaging Report ---
Clinical Indication: Fall, left rib pain and chest pain Technique: Spiral acquisitions obtained through the chest. No IV contrast utilized, preserved is request. Multiplanar reconstructions generated. Total dose length product to evaluate mGycm. CTDIvol(s) 7 mGy. Dose reduction achieved using automated exposure control Comparison: 12/05/2019 Findings: There is and old healed fracture deformity of the right fifth rib. There is a very mild superior endplate compression deformity of the T2 vertebral body, also evident previously. No acute fractures no evidence of significant soft tissue contusion. Surgical hardware is seen within the cervical spine The lungs are clear. No infiltrates, effusions, masses, nodules, or evidence of pneumothorax. There is a tiny left pleural nodule within the major fissure, also evident previously, likely calcified. The heart size is normal. No pericardial effusion. No mediastinal or hilar mass or adenopathy. The included thyroid is unremarkable. There is a small sliding-type hiatal hernia The included upper abdominal anatomy is unremarkable. Impression: No acute or significant abnormality. Old healed right rib fracture and possibly old mild T2 superior endplate compression fracture Evidence of prior cervical spine surgery Small hiatal hernia The CT scanner at [facility] is accredited by the [employer] and the scans are performed using protocols designed to limit radiation exposure to as low as reasonably achievable to attain images of sufficient resolution adequate for diagnostic evaluation.
[2020-05-31] MEDS ORDERED: NORCO 5-325 TA1 EAC1 ORAL (15:10)
[2020-05-31] MEDS ORDERED: IBUPROFEN600 M1 ORAL (15:10)
[2020-05-31 15:18] VITALS: BP 154/89
--- NOTE | 2020-05-31 15:28 | Emergency Room Report ---
History of Present Illness General Chief Complaint: Chest Pain Source: Patient Present Illness HPI 70-year-old female presents the ED complaining of left-sided rib pain. States that earlier today she tripped and fell and hit herself against a table. Notes 10 out of 10 pain to the left side ribs. Sharp, radiating to the back. Denies shortness of breath. Denies any head injury. Denies any fevers or chills. No other aggravating relieving factors. 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 COVID-19 Screening: Negative COVID-19 COVID-19 Testing Source: detention Patient History Past Medical History: HTN, COPD Past Surgical History: none Pertinent Family History: none Social History: Denies: smoking, alcohol use, drug use Now: No Immunizations: UTD Reviewed Nursing Documentation: PMH: Agreed; PSxH: Agreed Nursing Documentation-PMH Hx Cardiac Problems: Yes Hx Hypertension: Yes Hx Pacemaker: No Hx Asthma: No Hx COPD: Yes Hx Diabetes: No Hx Cancer: No Hx Gastrointestinal Problems: No Hx Dialysis: No Hx Neurological Problems: No Hx Cerebrovascular Accident: No Hx Seizures: No Hx Neurologic Surgery: No Review of Systems All Other Systems: negative except mentioned in HPI Physical Exam Vital Signs Date Time Temp Pulse Resp B/P (MAP) Pulse Ox O2 Delivery O2 Flow Rate FiO2 05/31/20 12:57 78 18 Room Air 05/31/20 12:57 98.7 154/89 99 Sp02 EP Interpretation: reviewed, normal General Appearance: alert, GCS 15, non-toxic, mild distress Head: normocephalic, atraumatic Eyes: bilateral eye normal inspection, bilateral eye PERRL ENT: hearing grossly normal, normal pharynx, no angioedema, normal voice Neck: full range of motion, supple/symm/no masses Respiratory: lungs clear, normal breath sounds, speaking full sentences, other - reproducible L anterior chest wall pain Cardiovascular #1: regular rate, rhythm, no edema Cardiovascular #2: 2+ carotid (R), 2+ carotid (L), 2+ radial (R), 2+ radial (L) , 2+ dorsalis pedis (R), 2+ dorsalis pedis (L) Gastrointestinal: normal bowel sounds, non tender, soft, non-distended, no guarding, no rebound Rectal: deferred Genitourinary: normal inspection, no CVA tenderness Musculoskeletal: back normal, normal range of motion, gait/station normal, non- tender Neurologic: alert, motor strength/tone normal, oriented x3, sensory intact, responsive, speech normal Psychiatric: judgement/insight normal, memory normal, mood/affect normal, no suicidal/homicidal ideation Reflexes: 3+ bicep (R), 3+ bicep (L), 3+ tricep (R), 3+ tricep (L), 3+ knee (R) , 3+ knee (L) Skin: no rash Lymphatic: no adenopathy Medical Decision Making Diagnostic Impression: Primary Impression: Rib contusion Qualified Codes: S20.212A - Contusion of left front wall of thorax, initial encounter ER Course Hospital Course 70-year-old female presents ED complaining of reproducible chest wall pain s/p fall Differential diagnoses include: Rib fracture, AK/unstable angina, contusion, muscle strain Clinical course Patient placed on stretcher. After initial history and physical I ordered labs , EKG, pain meds, CT chest labs reviewed- all electrolytes normal, troponins negative, no leukocytosis, hemoglobin/hematocrit stable EKG - NSR, no acute ischemic changes interpreted by me CT Chest - no acute fx. no acute process I discussed findings with patient. On reassurance pain improved. Safe for discharge for close outpatient follow-up. I will provide referrals I. I feel this is a highly complex case requiring extensive working including EKG/Rhythm strip, Xray/CT/US, Blood/urine lab work, repeat exams while in ED, and administration of strong opiates/narcotics for pain control, admission to hospital or close patient follow up. Diagnosis - rib contusion Stable and discharged to home. Instructed to followup with PMD. Return to ED if symptoms recur or worsen my chest wall pain shortness Laboratory Tests Test 05/31/20 12:46 White Blood Count 9.6 K/UL (4.8-10.8) Red Blood Count 4.52 M/UL (4.20-5.40) Hemoglobin 12.2 G/DL (12.0-16.0) Hematocrit 39.6 % (37.0-47.0) Mean Corpuscular Volume 88 FL (80-99) Mean Corpuscular Hemoglobin 26.9 PG (27.0-31.0) L Mean Corpuscular Hemoglobin Concent 30.8 G/DL (32.0-36.0) L Red Cell Distribution Width 15.2 % (11.6-14.8) H Platelet Count 192 K/UL (150-450) Mean Platelet Volume 8.6 FL (6.5-10.1) Neutrophils (%) (Auto) 62.9 % (45.0-75.0) Lymphocytes (%) (Auto) 27.3 % (20.0-45.0) Monocytes (%) (Auto) 6.5 % (1.0-10.0) Eosinophils (%) (Auto) 2.0 % (0.0-3.0) Basophils (%) (Auto) 1.3 % (0.0-2.0) Sodium Level 144 MMOL/L (136-145) Potassium Level 3.9 MMOL/L (3.5-5.1) Chloride Level 106 MMOL/L (98-107) Carbon Dioxide Level 29 MMOL/L (21-32) Anion Gap 9 mmol/L (5-15) Blood Urea Nitrogen 13 mg/dL (7-18) Creatinine 1.0 MG/DL (0.55-1.30) Estimat Glomerular Filtration Rate > 60 mL/min (>60) Glucose Level 89 MG/DL (74-106) Calcium Level 9.2 MG/DL (8.5-10.1) Total Bilirubin 0.3 MG/DL (0.2-1.0) Aspartate Amino Transf (AST/SGOT) 24 U/L (15-37) Alanine Aminotransferase (ALT/SGPT) 26 U/L (12-78) Alkaline Phosphatase 93 U/L (46-116) Troponin I 0.009 ng/mL (0.000-0.056) Pro-B-Type Natriuretic Peptide 184 pg/mL (0-125) H Total Protein 7.4 G/DL (6.4-8.2) Albumin 4.0 G/DL (3.4-5.0) Globulin 3.4 g/dL Albumin/Globulin Ratio 1.2 (1.0-2.7) EKG Diagnostic Results Rate: normal Rhythm: NSR ST Segments: no acute changes ASA given to the pt in ED: No Rhythm Strip Diag. Results EP Interpretation: yes Rhythm: NSR, no PVC's, no ectopy CT/MRI/US Diagnostic Results CT/MRI/US Diagnostic Results : Imaging Test Ordered: CT Chest Impression Procedure: CT Chest no Contrast Clinical Indication: Fall, left rib pain and chest pain Technique: Spiral acquisitions obtained through the chest. No IV contrast utilized, preserved is request. Multiplanar reconstructions generated. Total dose length product to evaluate mGycm. CTDIvol(s) 7 mGy. Dose reduction achieved using automated exposure control Comparison: 12/05/2019 Findings: There is and old healed fracture deformity of the right fifth rib. There is a very mild superior endplate compression deformity of the T2 vertebral body, also evident previously. No acute fractures no evidence of significant soft tissue contusion. Surgical hardware is seen within the cervical spine The lungs are clear. No infiltrates, effusions, masses, nodules, or evidence of pneumothorax. There is a tiny left pleural nodule within the major fissure, also evident previously, likely calcified. The heart size is normal. No pericardial effusion. No mediastinal or hilar mass or adenopathy. The included thyroid is unremarkable. There is a small sliding-type hiatal hernia The included upper abdominal anatomy is unremarkable. Impression: No acute or significant abnormality. Old healed right rib fracture and possibly old mild T2 superior endplate compression fracture Evidence of prior cervical spine surgery Small hiatal hernia The CT scanner at [facility] is accredited by the [employer] and the scans are performed using protocols designed to limit radiation exposure to as low as reasonably achievable to attain images of sufficient resolution adequate for diagnostic evaluation. Last Vital Signs Date Time Temp Pulse Resp B/P (MAP) Pulse Ox O2 Delivery O2 Flow Rate FiO2 05/31/20 15:18 98.7 78 18 154/89 99 Room Air Status: improved Disposition: HOME, SELF-CARE Condition: Stable Scripts Hydrocodone Bit/Acetaminophen 5-325* (NORCO 5-325 TABLET*) 1 Each Tablet 1 TAB ORAL Q6H PRN for FOR PAIN, #12 TAB 0 Refills Prov: Lev Alva MD 05/31/20 Ibuprofen* (MOTRIN*) 600 Mg Tablet 600 MG ORAL Q8H PRN for FOR PAIN, #30 TAB 0 Refills Prov: Lev Alva MD 05/31/20 Referrals: NOT CHOSEN IPA/,REFERRING (PCP) Nico Posey [facility] Patient Instructions: Rib Contusion Lev Alva MD May 31, 2020 15:28
== END 2020-05-31 15:19 | disposition home or self-care (01) ==
LOC: EMR 13:00
DX: S20.212A Contusion of left front wall of thorax, initial encounter (principal); W01.0XXA Fall on same level from slipping, tripping and stumbling without subsequent striking against object, initial encounter; Y92.9 Unspecified place or not applicable; I10 Essential (primary) hypertension; J44.9 Chronic obstructive pulmonary disease, unspecified
CPT/HCPCS: 36415; 71250; 80053; 83880; 84484; 85025; 93005; 96374; 96376; 99284; J2270

== ENCOUNTER 2020-07-28 06:26 | Inpatient (IN) | payer MEDICARE, OTHER ==
[~2020-07-28] VITALS: Ht 165.1 cm; Wt 84.6 kg
[~2020-07-28 06:26] MED LIST changes: +IBUPROFEN600 M1 ORAL
--- NOTE | 2020-07-28 06:33 | NUR ---
ED Nurse Note: brought in by ambulance [facility] from home c/o generalized body pain 10/10 x 1 month. denies injury or fall; reports hx of spinal stenosis. changed into gown; attached to monitor. patient ao4 with no acute distress. vitals stable. all safety measures met.
[2020-07-28 06:35] VITALS: BP 147/79
[2020-07-28] MEDS ORDERED: Morphine Sulfate 2mg/ml Inj(IV/IM USE ONLY) IM ONE (06:45)
--- NOTE | 2020-07-28 06:48 | Emergency Room Report ---
History of Present Illness General Chief Complaint: Back Pain-No Injury Source: Patient Present Illness HPI Disclaimer: Please note that this report is being documented using [employer]ela[employer] technology. This can lead to erroneous entry secondary to incorrect interpretation by the dictating instrument. HPI: 70-year-old female history of osteoporosis, spinal stenosis, previous discectomy presents for evaluation of generalized pain. Patient states for the past month she has been experiencing generalized pain in the neck, back, shoulders and most joints aside from the feet. Denies recent fall or injury. She has a history of discectomy in the cervical spine 2012. Denies numbness, tingling. Reports generalized weakness. She cannot localize her pain and states it is in all the joints and muscles. No prior history of fibromyalgia, rheumatic disease aside from osteoporosis. She took [place] yesterday and was seen at another emergency department where work-up was reported by patient as negative. Pain is exacerbated by movement. Relieved by rest. 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 COVID-19 Screening: Negative COVID-19 COVID-19 Testing Source: nasal Nursing Documentation-PMH Hx Cardiac Problems: Yes - spinal stenosis Hx Hypertension: Yes Hx Pacemaker: No Hx Asthma: No Hx COPD: Yes Hx Diabetes: No Hx Cancer: No Hx Gastrointestinal Problems: No Hx Dialysis: No Hx Neurological Problems: No Hx Cerebrovascular Accident: No Hx Seizures: No Hx Neurologic Surgery: No Review of Systems All Other Systems: negative except mentioned in HPI Physical Exam Vital Signs Date Time Temp Pulse Resp B/P (MAP) Pulse Ox O2 Delivery O2 Flow Rate FiO2 07/28/20 06:28 98.4 108 22 147/79 (101) 97 Room Air General: Awake and alert, no acute distress HEENT: NC/AT. EOMI. Cardiovascular: RRR. S1 and S2 normal. No murmur appreciated Resp: Normal work of breathing. No cough, wheezing or crackles appreciated Abdomen: Abdomen is soft, nondistended. Nontender Skin: Intact. No abrasions, laceration or rash over the exposed skin MSK: Normal tone and bulk. Moving all extremities. No obvious deformity. Reporting pain over all major joints and muscle groups aside from the feet. Muscle bulk and tone are symmetrical. Strength is 5/5 in the upper and lower extremities at the major joints. Neuro: Awake and alert. Mentating appropriately. Spine/back: Patient reporting pain over all palpated portions of the spine and paraspinal region. No palpable deformity. Procedures Critical Care Time Critical Care Time Total critical care time: Approximately 45 minutes Due to a high probability of clinically significant, life threatening deter ioration, the patient required the highest level of preparedness to intervene emergently and I personally spent this critical care time directly and personally managing the patient. This critical care time included obtaining a history, examining the patient, pulse oximetry, ordering and reviewing studies, ordering treatments, evaluating response to treatment and updating management plan as needed, frequent reassessment and discussion with other providers as well as arranging for ultimate disposition. This critical to care time was performed to assess and manage the high probability of life-threatening deterioration that could result in multiorgan failure. This critical care time is separate from the separately billable procedures and treating other patients. Medical Decision Making Diagnostic Impression: Primary Impression: Hypokalemia Additional Impressions: Myalgia Prolonged QT interval ER Course Is a 70-year-old female presenting for evaluation of body wide pain. No recent fall reported within the last month. No obvious deformity identified. Differential includes but is not limited to dehydration, rhabdomyolysis, UTI, electrolyte abnormality, osteoarthritis, inflammatory arthritis, chronic pain, fibromyalgia among others. Labs show an elevated white count with a neutrophil predominance and a critically low potassium of 2.6. Patient was previously taking potassium supplementation but is no longer taking them. Renal function within normal limits. Prolonged QT interval seen on EKG. Patient received IV and oral potassium repletion. Magnesium within normal limits. Urinalysis not convincing for acute infection. Patient be admitted for hypokalemia to panel physician, Dr. Busch. Laboratory Tests Test 07/28/20 06:40 White Blood Count 16.4 K/UL (4.8-10.8) H Red Blood Count 4.11 M/UL (4.20-5.40) L Hemoglobin 11.9 G/DL (12.0-16.0) L Hematocrit 36.5 % (37.0-47.0) L Mean Corpuscular Volume 89 FL (80-99) Mean Corpuscular Hemoglobin 29.0 PG (27.0-31.0) Mean Corpuscular Hemoglobin Concent 32.6 G/DL (32.0-36.0) Red Cell Distribution Width 14.4 % (11.6-14.8) Platelet Count 266 K/UL (150-450) Mean Platelet Volume 8.1 FL (6.5-10.1) Neutrophils (%) (Auto) 78.7 % (45.0-75.0) H Lymphocytes (%) (Auto) 11.9 % (20.0-45.0) L Monocytes (%) (Auto) 8.3 % (1.0-10.0) Eosinophils (%) (Auto) 0.1 % (0.0-3.0) Basophils (%) (Auto) 1.0 % (0.0-2.0) Urine Color Yellow Urine Appearance Clear Urine pH 6.5 (4.5-8.0) Urine Specific [place] 1.015 (1.005-1.035) Urine Protein 2+ (NEGATIVE) H Urine Glucose (UA) Negative (NEGATIVE) Urine Ketones 2+ (NEGATIVE) H Urine Blood 2+ (NEGATIVE) H Urine Nitrite Negative (NEGATIVE) Urine Bilirubin Negative (NEGATIVE) Urine Urobilinogen Normal MG/DL (0.0-1.0) Urine Leukocyte Esterase Negative (NEGATIVE) Urine RBC 2-4 /HPF (0 - 2) H Urine WBC 0 /HPF (0 - 2) Urine Squamous Epithelial Cells Few /LPF (NONE/OCC) Urine Bacteria Occasional /HPF (NONE) Sodium Level 134 MMOL/L (136-145) L Potassium Level 2.6 MMOL/L (3.5-5.1) *L Chloride Level 95 MMOL/L (98-107) L Carbon Dioxide Level 27 MMOL/L (21-32) Anion Gap 12 mmol/L (5-15) Blood Urea Nitrogen 16 mg/dL (7-18) Creatinine 0.8 MG/DL (0.55-1.30) Estimated Glomerular Filtration Rate > 60 mL/min (>60) Glucose Level 141 MG/DL (74-106) H Calcium Level 9.5 MG/DL (8.5-10.1) Phosphorus Level 3.7 MG/DL (2.5-4.9) Magnesium Level 1.9 MG/DL (1.8-2.4) Total Bilirubin 0.5 MG/DL (0.2-1.0) Aspartate Amino Transferase (AST) 17 U/L (15-37) Alanine Aminotransferase (ALT) 17 U/L (12-78) Alkaline Phosphatase 88 U/L (46-116) Total Creatine Kinase 36 U/L (26-308) Troponin I 0.000 ng/mL (0.000-0.056) Total Protein 7.9 G/DL (6.4-8.2) Albumin 3.4 G/DL (3.4-5.0) Globulin 4.5 g/dL Albumin/Globulin Ratio 0.8 (1.0-2.7) L EKG Diagnostic Results Troponin ordered: Yes When was troponin ordered?: Jul 28, 2020 EKG Time: 08:18 Rate: tachycardiac Rhythm: NSR ST Segments: no acute changes Other Impression Sinus tachycardia, normal axis, prolonged QTC at 507 ms. Rhythm Strip Diag. Results Rhythm Strip Time: 08:19 EP Interpretation: yes Rate: 100s Rhythm: NSR, no PVC's, no ectopy Last Vital Signs Date Time Temp Pulse Resp B/P (MAP) Pulse Ox O2 Delivery O2 Flow Rate FiO2 07/28/20 06:35 98.4 100 22 147/79 97 Room Air Disposition: ADMITTED INPATIENT Condition: Serious Derrek Castaneda MD Jul 28, 2020 06:48
[2020-07-28] MEDS ORDERED: Ketorolac 30mg Inj IV ONE (07:00)
--- NOTE | 2020-07-28 07:00 | NUR ---
ED Nurse Note: blood drawn; sent down to lab. medicated patient; tolerated well.
[2020-07-28 07:08] LABS: APPEARANCE,URINE CLEAR; BILIRUBIN, URINE NEGATIVE (NEGATIVE); GLUCOSE, URINE (UA) NEGATIVE (NEGATIVE); KETONES,URINE 2+ (NEGATIVE); LEUKOCYTE ESTERASE ,URINE NEGATIVE (NEGATIVE); NITRITE,URINE NEGATIVE (NEGATIVE); PH,URINE 6.5 (4.5-8.0); PROTEIN,URINE 2+ (NEGATIVE); UROBILINOGEN,URINE NORMAL MG/DL (0.0-1.0)
--- NOTE | 2020-07-28 07:09 | NUR ---
HAND-OFF: Report given to sridevi wallace. patient in stable condition; endorsed pending lab result.
--- NOTE | 2020-07-28 07:10 | NUR ---
ED Nurse Note: Received report from Jenna MO. Pt AAOX4, verbally responsive. Breathing even and unlabored, on room air. Safety and comfort provided. Will cont to monitor.
[2020-07-28 07:12] LABS: COLOR,URINE YELLOW; EOSINOPHILS % (AUTO) 0.1 % (0.0-3.0); HEMATOCRIT 36.5 % (37.0-47.0); HEMOGLOBIN 11.9 G/DL (12.0-16.0); LYMPHOCYTES % (AUTO) 11.9 % (20.0-45.0); MEAN CORPUSCULAR VOLUME 89 FL (80-99); MONOCYTES % (AUTO) 8.3 % (1.0-10.0); NEUTROPHILS % (AUTO) 78.7 % (45.0-75.0); PLATELET COUNT 266 K/UL (150-450); RED BLOOD COUNT 4.11 M/UL (4.20-5.40); RED CELL DISTRIBUTION WIDTH 14.4 % (11.6-14.8); WHITE BLOOD COUNT 16.4 K/UL (4.8-10.8)
[2020-07-28 07:23] LABS: ALANINE AMINOTRANSFERASE 17 U/L (12-78); ALBUMIN 3.4 G/DL (3.4-5.0); ALBUMIN/GLOBULIN RATIO 0.8 (1.0-2.7); ALKALINE PHOSPHATASE 88 U/L (46-116); ANION GAP 12 mmol/L (5-15); ASPARTATE AMINO TRANSFERASE 17 U/L (15-37); BILIRUBIN,TOTAL 0.5 MG/DL (0.2-1.0); BLOOD UREA NITROGEN 16 mg/dL (7-18); CALCIUM 9.5 MG/DL (8.5-10.1); CARBON DIOXIDE 27 MMOL/L (21-32); CHLORIDE 95 MMOL/L (98-107); CREATINE KINASE 36 U/L (26-308); CREATININE 0.8 MG/DL (0.55-1.30); POTASSIUM 2.6 MMOL/L (3.5-5.1); SODIUM 134 MMOL/L (136-145)
[2020-07-28 07:49] LABS: PHOSPHORUS 3.7 MG/DL (2.5-4.9)
--- NOTE | 2020-07-28 08:25 | NUR ---
ED Nurse Note: IV line established.
[2020-07-28] MEDS ORDERED: HYDROcodone/Acetamin 5/325 tab ORAL ONE (10:15)
[2020-07-28 10:36] VITALS: BP 132/61
--- NOTE | 2020-07-28 10:55 | NUR ---
ED Nurse Note: Report given to Portillo NAVARRO.
--- NOTE | 2020-07-28 11:10 | NUR ---
TRANSFER TO FLOOR: Patient transferred to Telemetry. Report given Portillo NAVARRO. Pt AAOX4, verbally repsonsive. No SOB, on room air. IV line on left upper arm 22g patent and intact. Med recon done. No skin issues. All belongings sent with the patient.
--- NOTE | 2020-07-28 11:13 | NUR ---
NURSE NOTES: Received patient from ED via gurney, safely transferred to [facility]. 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 Patient alert and oriented x4, breathing even and unlabored, rhonchi on all lung dover, patient states she has hx of COPD, patient in no apparent respiratory distress. Bed alarm on, bed in lowest and locked position, call light within reach. Bed rails upx2, calm and cooperative demeanor. Notified Dr. Busch regarding pain, will put in orders upon response. Awaiting callback.
[2020-07-28] MEDS ORDERED: HYDROmorphone 1 MG in NS 55 ML IVPB PRN (12:00)
[2020-07-28] MEDS: HYDROmorphone 1mg/ml Carpuject IVP PRN ×3 (12:26→21:16)
[2020-07-28 16:00] VITALS: BP 130/55
--- NOTE | 2020-07-28 19:00 | NUR ---
NURSE HAND-OFF REPORT: Important Events on Shift: Patient fall risk, ate 25% lunch and 25% dinner, hard of hearing on left ear Patient Status: stable condition, full code Diet: cardiac diet, no texture modifications Pending Orders: [] Pending Results/Labs:[] Pending MD notification:[] Latest Vital Signs: Temperature 97.5 , Pulse 83 , B/P 130 /55 , Respiratory Rate 20 , O2 SAT 96 , Room Air, O2 Flow Rate . Vital Sign Comment: [] EKG Rhythm: Sinus Rhythm Rhythm change?: N Notified?: N -Dr. Narayan MAR Response: No New Orders Received Latest [place] Fall Score: 80 Fall Risk: High Risk Safety Measures: Call light Within Reach, Bed Alarm Zone 2, Side Rails Side Rails x2, Bed position Low and Locked. Fall Precautions: Yellow Socks Yellow Gown Door Sign Patient Fall Education Report given to Cnonie Patterson RN.
--- NOTE | 2020-07-28 19:30 | NUR ---
NURSE NOTES: Report received from MELANIE Nath. Patient is awake on bed, alert and oriented x 4. patient monitor is in place, shows sinus rhythm with no chest pain reported. On room air, sating 97-98 % with no SOB at this time. Patient is on bedrest, able to walk but needs total assistance. IV site is on left upper arm g-22 running fluid of D5NS + 20 meqs KCL @ 100 cc/hour that is patent and intact. Safety measures are in place, bed in lowest and locked position, side rails up x 2, Call light button and bedside table within reach, instructed to call for any assistance needed. Will continue plan of care.
[2020-07-28 20:00] VITALS: BP 109/59
--- NOTE | 2020-07-28 20:11 | NUR ---
NURSE NOTES: Physical assessment done, noted ecchymosis on left forearm and patient states it's from the previous IV insertion, no active bleeding on the said area, other that that no skin issues noted. No edema, breathing equal and unlabored. Will continue to monitor.
[2020-07-28] MEDS: Heparin 5000 units/ml inj SUBQ SCH (20:18)
[2020-07-29] VITALS: BP 119/58
[2020-07-29 04:00] VITALS: BP 149/81
[2020-07-29] MEDS: HYDROmorphone 1mg/ml Carpuject IVP PRN ×5 (04:22→21:59)
[2020-07-29 06:48] LABS: EOSINOPHILS % (AUTO) 1.3 % (0.0-3.0); HEMATOCRIT 33.3 % (37.0-47.0); HEMOGLOBIN 10.6 G/DL (12.0-16.0); LYMPHOCYTES % (AUTO) 22.6 % (20.0-45.0); MEAN CORPUSCULAR VOLUME 91 FL (80-99); MONOCYTES % (AUTO) 9.4 % (1.0-10.0); NEUTROPHILS % (AUTO) 65.7 % (45.0-75.0); PLATELET COUNT 259 K/UL (150-450); RED BLOOD COUNT 3.66 M/UL (4.20-5.40); RED CELL DISTRIBUTION WIDTH 15.1 % (11.6-14.8); WHITE BLOOD COUNT 9.7 K/UL (4.8-10.8)
--- NOTE | 2020-07-29 06:52 | General Progress Note ---
Subjective ROS Limited/Unobtainable: No Constitutional: Reports: malaise, weakness HEENT: Reports: no symptoms Cardiovascular: Reports: no symptoms Respiratory: Reports: cough, shortness of breath Gastrointestinal/Abdominal: Reports: no symptoms Genitourinary: Reports: no symptoms Neurologic/Psychiatric: Reports: anxiety, depressed, emotional problems, paresthesia Endocrine: Reports: no symptoms Hematologic/Lymphatic: Reports: no symptoms Allergies: Coded Allergies: No Known Allergies (Verified , 03/28/07) All Systems: reviewed and negative except above Subjective pain better controlled. no fever or chills. no sob. tolerating po. CP resolved. AM labs pending. remains on ivf. Objective Last 24 Hour Vital Signs Date Time Temp Pulse Resp B/P (MAP) Pulse Ox O2 Delivery O2 Flow Rate FiO2 07/29/20 04:00 94 07/29/20 04:00 99.8 101 21 149/81 (103) 96 07/29/20 00:00 98.0 91 20 119/58 (78) 95 07/29/20 00:00 94 07/28/20 21:00 Room Air 07/28/20 20:00 97.9 88 19 109/59 (76) 94 07/28/20 20:00 89 07/28/20 17:15 97.5 07/28/20 16:00 97.5 83 20 130/55 (80) 96 07/28/20 16:00 83 07/28/20 12:56 98.4 07/28/20 12:04 Room Air 07/28/20 12:00 91 07/28/20 11:13 101 07/28/20 11:10 98.4 102 21 132/61 100 Room Air 07/28/20 10:47 98.4 07/28/20 10:36 98.4 102 21 132/61 100 Room Air 07/28/20 07:30 98.4 07/28/20 07:17 98.4 l Intake and Output 07/28/20 07/29/20 19:00 07:00 Intake Total 460 ml 1350 ml Output Total 600 ml Balance 460 ml 750 ml Intake Oral 320 ml 350 ml IV Total 140 ml 1000 ml Output Urine Total 600 ml # Voids 1 # Bowel Movements 1 Laboratory Tests 07/29/20 05:45: White Blood Count [Pending], Red Blood Count [Pending], Hemoglobin [Pending], Hematocrit [Pending], Mean Corpuscular Volume [Pending], Mean Corpuscular Hemoglobin [Pending], Mean Corpuscular Hemoglobin Concent [Pending], Red Cell Distribution Width [Pending], Platelet Count [Pending], Mean Platelet Volume [Pending], Neutrophils (%) (Auto) [Pending], Lymphocytes (%) (Auto) [Pending], Monocytes (%) (Auto) [Pending], Eosinophils (%) (Auto) [Pending], Basophils (%) (Auto) [Pending], Sodium Level [Pending], Potassium Level [Pending], Chloride Level [Pending], Carbon Dioxide Level [Pending], Blood Urea Nitrogen [Pending], Creatinine [Pending], Estimat Glomerular Filtration Rate [Pending], Glucose Level [Pending], Calcium Level [Pending] Height (Feet): 5 Height (Inches): 5.00 Weight (Pounds): 189 General Appearance: WD/WN, alert EENT: normal ENT inspection Neck: non-tender, normal alignment, supple Cardiovascular: normal rate, regular rhythm Respiratory/Chest: chest wall non-tender, lungs clear, normal breath sounds, no respiratory distress, no accessory muscle use Abdomen: normal bowel sounds, non tender, soft, no organomegaly Edema: no edema noted Arm (L), no edema noted Arm (R) 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, alert, oriented x 3 Skin: normal pigmentation Assessment/Plan Problem List: (1) Hyponatremia ICD Codes: E87.1 - Hypo-osmolality and hyponatremia SNOMED: 18853557 (2) Dehydration ICD Codes: E86.0 - Dehydration SNOMED: 30650796 (3) Anxiety ICD Codes: F41.9 - Anxiety disorder, unspecified SNOMED: 75200573 (4) HTN (hypertension) ICD Codes: I10 - Essential (primary) hypertension SNOMED: 56081201 (5) COPD (chronic obstructive pulmonary disease) ICD Codes: J44.9 - Chronic obstructive pulmonary disease, unspecified SNOMED: 72927929 (6) Chest pain ICD Codes: R07.9 - Chest pain, unspecified SNOMED: 64275591 (7) Chronic pain ICD Codes: G89.29 - Other chronic pain SNOMED: 82310586 (8) Cervical radiculopathy ICD Codes: M54.12 - Radiculopathy, cervical region SNOMED: 76767104 (9) ACS (acute coronary syndrome) ICD Codes: I24.9 - Acute ischemic heart disease, unspecified SNOMED: 180976129 (10) Hypokalemia ICD Codes: E87.6 - Hypokalemia SNOMED: 03328118 (11) Myalgia ICD Codes: M79.10 - Myalgia, unspecified site SNOMED: 01332263 (12) Hypokalemia ICD Codes: E87.6 - Hypokalemia SNOMED: 81226183 (13) Cervical herniated disc ICD Codes: M50.20 - Other cervical disc displacement, unspecified cervical region SNOMED: 197605692 Status: stable Assessment/Plan: cont ivf with potassium replacement follow up labs check cxr check hip xray cont bp rx pain rx as needed dvt/stress ulcer prophylaxis check duplex follow up repeat trop Kannan Busch MD Jul 29, 2020 06:52
--- NOTE | 2020-07-29 07:25 | NUR ---
NURSE HAND-OFF REPORT: Important Events on Shift: Patient has been complaining of generalized joint swelling. Dilaudid was given and turn to sides, provided multiple pillows for comfort. Patient Status: Patient is awake on bed, in stable condition, still complaining of joint pain. Plan of care endorsed. Diet: Cardiac diet Pending Orders: BMP, CBC tomorrow 07/30 Pending Results/Labs:CBC, BMP result that was done this morning Pending MD notification:none Latest Vital Signs: Temperature 99.8 , Pulse 101 , B/P 149 /81 , Respiratory Rate 21 , O2 SAT 96 , Room Air, O2 Flow Rate . Vital Sign Comment: stable EKG Rhythm: Sinus Tachycardia Rhythm change?: Y Notified?: N -Dr. Narayan MAR Response: No New Orders Received Latest Ospina Fall Score: 70 Fall Risk: High Risk Safety Measures: Call light Within Reach, Bed Alarm Zone 1, Side Rails Side Rails x2, Bed position Low and Locked. Fall Precautions: Yellow Socks Yellow Gown Door Sign Patient Fall Education Report given to MELANIE Romeo.
--- NOTE | 2020-07-29 07:43 | NUR ---
NURSE NOTES: Received report from MELANIE Rosales. Pt A/O x4. No s/s of acute distress. C/o generalized pain 7/10 pain scale. Currently on room air. IVF infusing on CAPO, asymptomatic, patent and intact. Bed in low position, side rails up x2 and call light within reach. Will continue to monitor.
[2020-07-29 08:00] VITALS: BP 136/60
[2020-07-29] MEDS: Aspirin EC 81mg tab ORAL SCH (08:28)
[2020-07-29] MEDS: Heparin 5000 units/ml inj SUBQ SCH ×2 (08:47→21:51)
[2020-07-29] MEDS ORDERED: Hyzaar 50-12.5mg tab ORAL SCH (09:00)
--- NOTE | 2020-07-29 09:10 | NUR ---
PT EVALUATION NOTE Patient seen for initial evaluation and treatment initiated. Patient presents with generalized weakness and pain which impairs patient's ability to perform mobility tasks safely. Patient required max assist for rolling and declined to come to sitting at the EOB. STITCH BONDING MACHINE DRAWER IN and RN reported that patient ambulated to the bathroom with assist of 2 people. Patient will benefit from skilled inpatient PT intervention to increase strength and postural stability for improved level of functional mobility and safety and to decrease fall risk. Recommend discharge to SNF for continued rehab once medically cleared by MD as patient lives alone and is a high fall risk. Addendum: 07/29/20 at 1301 by KALEB SHAFFER PT Amended: Links added.
--- NOTE | 2020-07-29 09:15 | History and Physical Report ---
DATE OF ADMISSION: 07/28/2020 CHIEF COMPLAINT: Fall, chest pain, and dizziness. HISTORY OF PRESENT ILLNESS: The patient is a 70-year-old female, well known to me. She has a history of prior admissions, usually for pain-related issues. According to the patient, she sustained a fall approximately a week ago and worsened severe intractable pain in her joints. She felt dizzy. She had chest pain as well as shortness of breath and presented to the emergency room. On evaluation there, she was noted to have white count of 16,000. She had a sodium of 134 and potassium 2.6. Urinalysis was clear. In light of the elevated white count and hypokalemia, she is now admitted for further evaluation and care. PAST MEDICAL HISTORY: Significant history of hypertension, hypertensive heart disease, and history of asthma/COPD. PAST SURGICAL HISTORY: Includes neck surgery. CURRENT MEDICATIONS: Reconciled and reviewed. ALLERGIES: None. FAMILY HISTORY: Noncontributory. SOCIAL HISTORY: She has a 20- to 55-ntho-kbwl history of smoking, is currently trying to quit. She has history of opiate use disorder. No alcohol. REVIEW OF SYSTEMS: GENERAL: No fevers or chills. HEENT: No headaches or visual changes. CARDIOPULMONARY: Positive for chest pain and shortness of breath. GASTROINTESTINAL: No nausea or vomiting. GENITOURINARY: No urgency or frequency. MUSCULOSKELETAL: Positive for diffuse joint pains. NEURO: No history of seizures. PHYSICAL EXAMINATION: VITAL SIGNS: Temperature 98, pulse 88, respirations 19, and blood pressure 148/77. GENERAL: The patient is a well-developed, in no apparent distress. HEART: Head is cephalic and atraumatic. Oropharynx clear. Mucous membranes are dry. NECK: Supple. There is no adenopathy. HEART: Regular rate and rhythm. LUNGS: Clear. ABDOMEN: Soft, nontender, and nondistended. EXTREMITIES: No clubbing, cyanosis, or edema. LABORATORY DATA: Sodium was 134, potassium was 2.6. Troponin was negative. ASSESSMENT: This is a 70-year-old female who was admitted with complaints of generalized diffuse pain, leukocytosis, dehydration, and hypokalemia. PLAN: 1. IV fluids. 2. Replace potassium. 3. Discontinue the patient's diuretic. 4. Potassium supplementation as needed. 5. Check a chest x-ray. 6. Repeat white blood cell count. 7. Consider IV antibiotics. 8. We will also check sed rate. 9. PT/OT evaluations will be obtained. 10. Cardiology consultation will also be obtained. Kannan Busch M.D. DR: Kiana JOB#: [id number] CC:
[2020-07-29 09:32] LABS: CALCIUM 8.8 MG/DL (8.5-10.1); CREATININE 1.2 MG/DL (0.55-1.30); POTASSIUM 3.6 MMOL/L (3.5-5.1)
--- NOTE | 2020-07-29 09:50 | NUR ---
NURSE NOTES: Received troponin result of 0.114. Left a message for Dr. Busch regarding result.
[2020-07-29 12:00] VITALS: BP 149/70
--- NOTE | 2020-07-29 13:45 | NUR ---
RADIOLOGY DEPT., CHEST, PELVIS AND BILATERAL HIPS X-RAYS COMPLETED.-P.DYE
--- NOTE | 2020-07-29 14:01 | Diagnostic Imaging Report ---
Indication: Shortness of breath Technique: One view of the chest Comparison: 12/07/2019 Findings: Apparent nodular opacities of the left lower lung probably represent prominent costochondral cartilages; appearance is similar to a 2015 exam. No definite infiltrates, effusions, or congestion. Normal heart size. There is evidence of prior cervical spine fusion surgery. Impression: No acute process
--- NOTE | 2020-07-29 14:41 | Diagnostic Imaging Report ---
Indication: Pain Technique: One view the pelvis, 2 views of the bilateral hip Comparison: 06/15/2012 Findings: There is evidence of surgical repair of heel femoral shaft fracture. No acute fractures. No dislocations. Joint spaces are preserved. Impression: No acute process
--- NOTE | 2020-07-29 14:58 | NUR ---
*-*DISCHARGE PLANNED*-* PATIENT HAS BEEN ACCEPTED WITH: [facility] P:[phone] S/W NGUYEN, WILL SERVICE PATIENT UPON DISCHARGE.
[2020-07-29 16:00] VITALS: BP 145/70
--- NOTE | 2020-07-29 16:14 | NUR ---
CASE MANAGEMENT:REVIEW 70YR OLD FEMALE BIBA FROM HOME CC: GENERALIZED BODY PAIN PMH: SPINAL STENOSIS SI:: HYPOKALEMIA 98.4 108 22 147/79 97% ON RA K-2.6 WBC+16.4 IS: IV MORPHINE IV TORADOL KCL PO IV KCL : TO TELEMETRY
--- NOTE | 2020-07-29 19:09 | NUR ---
NURSE HAND-OFF REPORT: Important Events on Shift:[] Patient Status: [] Diet: [] Pending Orders: [] Pending Results/Labs:[] Pending MD notification:[] Latest Vital Signs: Temperature 97.9 , Pulse 97 , B/P 145 /70 , Respiratory Rate 20 , O2 SAT 96 , Room Air, O2 Flow Rate . Vital Sign Comment: [] EKG Rhythm: Sinus Rhythm Rhythm change?: Y MD Notified?: N -Dr. Narayan MAR Response: No New Orders Received Latest Ospina Fall Score: 70 Fall Risk: High Risk Safety Measures: Call light Within Reach, Bed Alarm Zone 1, Side Rails Side Rails x2, Bed position Low and Locked. Fall Precautions: Yellow Socks Yellow Gown Door Sign Patient Fall Education Report given to [MELANIE Mcguire].
--- NOTE | 2020-07-29 19:10 | NUR ---
NURSE NOTES: RECEIVED REPORT FROM MELANIE CAMERON. PT IN BED AWAKE, ALERT/ORIENTED X4, ABLE TO MAKE NEEDS KNOWN. NO RESP DISTRESS NOTED. FILM COATER IN PLACE. IV IN PLACE & PATENT ON RIGHT UPPER ARM RUNNING D5 1/2NS WITH 20 MEQ OF KCL AT 75CC/HR, NO S/S INFILTRATION NOTED. BED IN LOW POSITION & LOCKED, SIDE RAILS UP X2. CALL LIGHT WITH IN REACH.
[2020-07-29 20:00] VITALS: BP 170/79
--- NOTE | 2020-07-29 21:25 | NUR ---
NURSE NOTES: NOTIFIED DR. CARRANZA REGARDING PT'S B/P OF 170/79, AWAITING CALL BACK.
--- NOTE | 2020-07-29 21:38 | NUR ---
NURSE NOTES: DR. CARRANZA INPUTTED NEW ORDERED FOR B/P MEDICATION WILL NOTE & CARRY OUT.
[2020-07-29] MEDS ORDERED: Metoprolol Tartrate 50mg tab ORAL SCH (21:45)
--- NOTE | 2020-07-29 21:56 | Cardiology Progress Note ---
Subjective DATE OF SERVICE: Jul 29, 2020 Still with elevated BP parameters. Remains on IVF and K+ replacement. No chest pain today, but troponin has increased. Objective Last 24 Hour Vital Signs Date Time Temp Pulse Resp B/P (MAP) Pulse Ox O2 Delivery O2 Flow Rate FiO2 07/29/20 16:00 97 07/29/20 16:00 97.9 99 20 145/70 (95) 96 07/29/20 12:00 98.1 106 20 149/70 (96) 97 07/29/20 12:00 105 07/29/20 09:00 Room Air 07/29/20 08:28 136/60 07/29/20 08:28 111 136/60 07/29/20 08:00 107 07/29/20 08:00 97.9 111 20 136/60 (85) 95 07/29/20 04:00 94 07/29/20 04:00 99.8 101 21 149/81 (103) 96 07/29/20 00:00 98.0 91 20 119/58 (78) 95 07/29/20 00:00 94 HEENT: normal ENT inspection RHYTHM: NSR, ST LUNGS: lungs clear bilaterally CARDIAC: normal rate, regular rhythm, normal S1 and S2 ABDOMEN: normal bowel sounds, non tender, soft, no organomegaly EXTREMITIES: normal range of motion, non-tender, No edema Laboratory Tests Test 07/29/20 05:45 07/29/20 08:10 White Blood Count 9.7 K/UL (4.8-10.8) Red Blood Count 3.66 M/UL (4.20-5.40) L Hemoglobin 10.6 G/DL (12.0-16.0) L Hematocrit 33.3 % (37.0-47.0) L Mean Corpuscular Volume 91 FL (80-99) Mean Corpuscular Hemoglobin 28.9 PG (27.0-31.0) Mean Corpuscular Hemoglobin Concent 31.7 G/DL (32.0-36.0) L Red Cell Distribution Width 15.1 % (11.6-14.8) H Platelet Count 259 K/UL (150-450) Mean Platelet Volume 7.6 FL (6.5-10.1) Neutrophils (%) (Auto) 65.7 % (45.0-75.0) Lymphocytes (%) (Auto) 22.6 % (20.0-45.0) Monocytes (%) (Auto) 9.4 % (1.0-10.0) Eosinophils (%) (Auto) 1.3 % (0.0-3.0) Basophils (%) (Auto) 1.0 % (0.0-2.0) Erythrocyte Sedimentation Rate 81 MM/HR (0-30) H Hemoglobin A1c 6.0 % (4.3-6.0) Sodium Level 137 MMOL/L (136-145) Potassium Level 3.6 MMOL/L (3.5-5.1) Chloride Level 100 MMOL/L (98-107) Carbon Dioxide Level 31 MMOL/L (21-32) Anion Gap 6 mmol/L (5-15) Blood Urea Nitrogen 27 mg/dL (7-18) H Creatinine 1.2 MG/DL (0.55-1.30) Estimat Glomerular Filtration Rate 53.8 mL/min (>60) Glucose Level 176 MG/DL (74-106) H Calcium Level 8.8 MG/DL (8.5-10.1) Troponin I 0.114 ng/mL (0.000-0.056) Thyroid Stimulating Hormone (TSH) 2.733 uiU/mL (0.358-3.740) Assessment/Plan Assessment/Plan Hypokalemia Acute myocardial ischemia and possible NSTE myocardial infarction Hypertension/HHD with BP elevations Chronic pain syndrome Hyponatremia/dehydration COPD Nicotine abuse - active smoker DC thiazide Advance losartan Add beta colette Continue aspirin Serial troponin levels; consider myocardial perfusion scan Check TSH/Lipids/repeat lytes Taper off IVF Emir Alanis MD Jul 29, 2020 21:56
[2020-07-29] MEDS ORDERED: Docusate 250mg cap ORAL SCH (23:15)
[2020-07-30] VITALS: BP 153/75
[2020-07-30] MEDS: HYDROmorphone 1mg/ml Carpuject IVP PRN ×5 (02:04→21:58)
[2020-07-30 04:00] VITALS: BP 151/70
--- NOTE | 2020-07-30 04:00 | Consultation ---
DATE OF CONSULTATION: 07/28/2020 CARDIOLOGY CONSULTATION CONSULTING PHYSICIAN: Emir Alanis M.D. REQUESTING PHYSICIAN: Kannan Busch M.D. REASON FOR CONSULTATION: Chest pain. HISTORY OF PRESENT ILLNESS: This is a 70-year-old female, who was admitted to the hospital with pain over her chest and associated shortness of breath raising concern over an acute coronary syndrome while the patient has sustained a fall about a week ago that resulted in intractable back and joint pain. She notes dizziness that is associated with that event. Her chest pain however started today. In the emergency room, the patient was evaluated and had several abnormal laboratory studies. Her initial troponin level was 0. Her electrocardiogram was reviewed and notable for sinus tachycardia with a prolonged QTc interval of over 507 milliseconds. PAST MEDICAL HISTORY: Includes depression, hyperlipidemia, cervical spondylosis, osteoarthritis, lumbar stenosis, gastroesophageal reflux disease, COPD, chronic anemia, and history of herniated cervical disc. MEDICATIONS: Reviewed and reconciled. ALLERGIES: None known. FAMILY HISTORY: Noncontributory. SOCIAL HISTORY: Active smoker, 20 to 30 year pack history, history of opiate use disorder. No alcohol use. REVIEW OF SYSTEMS: No known COVID-19 exposures. No fevers or chills. No history of abnormal blood clotting. No history of thyroid disorder or diabetes. No history of seizure or stroke. She does have constipation. She denies any change in bowel habits. She does not have any frequency or dysuria. PHYSICAL EXAMINATION: VITAL SIGNS: Afebrile. Blood pressure 148/77, pulse 88, and respirations 19. HEENT: Conjunctiva pink. Oropharynx clear. NECK: Supple. LUNGS: Clear. CARDIAC: Regular rhythm and rate. Normal S1, S2 with a fourth heart sound. ABDOMEN: Soft and nontender. No guarding. No rebound. EXTREMITIES: No clubbing, no cyanosis, no edema. IMAGING: Chest x-ray revealed no acute process. Hip and pelvis x-rays did not reveal any acute fractures. Laboratories notable for white count 16.4 and hemoglobin 11.9. Sodium 134, potassium 2.6, bicarb 27, BUN 16, creatinine 0.8, and glucose 141. Albumin 3.4. Magnesium 1.9. IMPRESSION: 1. Possible acute coronary syndrome. 2. Abnormal EKG, maybe electrolyte related. 3. Hypokalemia. 4. Hyponatremia. 5. COPD. 6. Nicotine addiction. 7. Leukocytosis. 8. Hypertensive heart disease. PLAN: 1. Cardiac monitoring. 2. Follow up troponin. 3. DVT prophylaxis. 4. Titrate antihypertensive regimen. 5. Replace potassium. 6. Cautious hydration with IV fluids. 7. Reassess continued use of thiazide diuretic or add Aldactone. Emir Alanis M.D. DR: ARPIT JOB#: [id number] CC:
--- NOTE | 2020-07-30 06:45 | NUR ---
NURSE NOTES: SEEN BY DR. DON WITH NEW ORDERS WILL NOTE & CARRY OUT
--- NOTE | 2020-07-30 07:05 | NUR ---
NURSE NOTES: RECEIVED PATIENT FROM ULISES RN IN BED, DENIES ANY PAIN AT THIS TIME. NO S/S OF RESPIRATORY DISTRESS NOTED. PATIENT HAD BREAKFAST AND WAS CONTENT. NOTED PATIENT HAS RIGHT FOOT 18G IV SL. BED IS ON LOWEST LEVEL WITH BEDSIDE RAILS UP X3, BRAKES ENGAGED FOR SAFETY. CALL LIGHT WITHIN EASY REACH. ALL NEEDS ATTENDED TO AND MET. WILL CONTINUE WITH THE PLAN OF CARE.
--- NOTE | 2020-07-30 07:36 | NUR ---
NURSE HAND-OFF REPORT: Important Events on Shift: IV STARTED ON RIGHT FOOT Patient Status: STABLE Diet:CARDIAC Pending Orders: N/A Pending Results/Labs:YES Pending MD notification:[] Latest Vital Signs: Temperature 97.5 , Pulse 82 , B/P 151 /70 , Respiratory Rate 16 , O2 SAT 93 , Room Air, O2 Flow Rate . Vital Sign Comment: [] EKG Rhythm: Sinus Rhythm Rhythm change?: N MD Notified?: N -Dr. Narayan MAR Response: No New Orders Received Latest Ospina Fall Score: 70 Fall Risk: High Risk Safety Measures: Call light Within Reach, Bed Alarm Zone 1, Side Rails Side Rails x2, Bed position Low and Locked. Fall Precautions: Yellow Socks Yellow Gown Door Sign Patient Fall Education Report given to MELANIE GAUTHIER.
[2020-07-30 07:37] LABS: BASOPHILS % (AUTO) 0.9 % (0.0-2.0); EOSINOPHILS % (AUTO) 1.8 % (0.0-3.0); HEMATOCRIT 36.4 % (37.0-47.0); HEMOGLOBIN 11.4 G/DL (12.0-16.0); LYMPHOCYTES % (AUTO) 27.8 % (20.0-45.0); MEAN CORPUSCULAR VOLUME 90 FL (80-99); NEUTROPHILS % (AUTO) 64.5 % (45.0-75.0); PLATELET COUNT 311 K/UL (150-450); RED BLOOD COUNT 4.04 M/UL (4.20-5.40); RED CELL DISTRIBUTION WIDTH 14.9 % (11.6-14.8); WHITE BLOOD COUNT 9.8 K/UL (4.8-10.8)
[2020-07-30 08:00] VITALS: BP 160/70
[2020-07-30] MEDS: Docusate 100mg cap ORAL SCH ×2 (08:09→17:21)
[2020-07-30] MEDS: Losartan 50mg tab ORAL SCH (08:11)
[2020-07-30] MEDS: Aspirin EC 81mg tab ORAL SCH (08:11)
[2020-07-30] MEDS: Heparin 5000 units/ml inj SUBQ SCH ×2 (08:13→22:00)
[2020-07-30 08:22] LABS: ANION GAP 8 mmol/L (5-15); BLOOD UREA NITROGEN 15 mg/dL (7-18); CARBON DIOXIDE 28 MMOL/L (21-32); CHLORIDE 101 MMOL/L (98-107); CHOLESTEROL 281 MG/DL (< 200); CREATININE 0.7 MG/DL (0.55-1.30); HDL CHOLESTEROL 43 MG/DL (40-60); POTASSIUM 4.2 MMOL/L (3.5-5.1); SODIUM 137 MMOL/L (136-145); TRIGLYCERIDES 139 MG/DL (30-150)
--- NOTE | 2020-07-30 08:46 | General Progress Note ---
Subjective ROS Limited/Unobtainable: No Constitutional: Reports: malaise, weakness HEENT: Reports: no symptoms Cardiovascular: Reports: chest pain Respiratory: Reports: cough, shortness of breath Gastrointestinal/Abdominal: Reports: no symptoms Genitourinary: Reports: no symptoms Neurologic/Psychiatric: Reports: anxiety, emotional problems Endocrine: Reports: no symptoms Hematologic/Lymphatic: Reports: no symptoms Allergies: Coded Allergies: No Known Allergies (Verified , 03/28/07) All Systems: reviewed and negative except above Subjective bp up. troponin trending down. no fever or chills. no sob. cards appreciated. c/o anxiety. Objective Last 24 Hour Vital Signs Date Time Temp Pulse Resp B/P (MAP) Pulse Ox O2 Delivery O2 Flow Rate FiO2 07/30/20 08:11 160/70 07/30/20 08:10 87 160/70 07/30/20 08:09 87 160/70 07/30/20 04:00 97.5 80 16 151/70 (97) 93 07/30/20 04:00 82 07/30/20 00:00 98.0 85 20 153/75 (101) 96 07/30/20 00:00 77 07/29/20 21:51 98 170/79 07/29/20 21:00 Room Air 07/29/20 20:00 96 07/29/20 20:00 98.2 98 20 170/79 (109) 98 07/29/20 16:00 97 07/29/20 16:00 97.9 99 20 145/70 (95) 96 07/29/20 12:00 98.1 106 20 149/70 (96) 97 07/29/20 12:00 105 07/29/20 09:00 Room Air Intake and Output 07/29/20 07/30/20 19:00 07:00 Intake Total 1260 ml 350 ml Output Total 800 ml 1500 ml Balance 460 ml -1150 ml Intake Oral 360 ml 350 ml IV Total 900 ml Output Urine Total 800 ml 1500 ml # Voids 1 # Bowel Movements 2 2 Laboratory Tests 07/30/20 06:44: White Blood Count 9.8, Red Blood Count 4.04L, Hemoglobin 11.4L, Hematocrit 36.4L , Mean Corpuscular Volume 90, Mean Corpuscular Hemoglobin 28.1, Mean Corpuscular Hemoglobin Concent 31.2L, Red Cell Distribution Width 14.9H, Platelet Count 311, Mean Platelet Volume 7.5, Neutrophils (%) (Auto) 64.5, Lymphocytes (%) (Auto) 27.8, Monocytes (%) (Auto) 5.0, Eosinophils (%) (Auto) 1.8, Basophils (%) (Auto) 0.9, Sodium Level 137, Potassium Level 4.2, Chloride Level 101, Carbon Dioxide Level 28, Anion Gap 8, Blood Urea Nitrogen 15, Creatinine 0.7, Estimat Glomerular Filtration Rate > 60, Glucose Level 124H, Calcium Level 9.0, Troponin I 0.039, Pro-B-Type Natriuretic Peptide [Pending], Triglycerides Level 139, Cholesterol Level 281H, LDL Cholesterol 190H, HDL Cholesterol 43, Cholesterol/HDL Ratio 6.5H, Thyroid Stimulating Hormone (TSH) 2.258 Height (Feet): 5 Height (Inches): 5.00 Weight (Pounds): 189 Objective General Appearance: WD/WN, alert EENT: normal ENT inspection Neck: non-tender, normal alignment, supple Cardiovascular: normal rate, regular rhythm Respiratory/Chest: chest wall non-tender, lungs clear, normal breath sounds, no respiratory distress, no accessory muscle use Abdomen: normal bowel sounds, non tender, soft, no organomegaly Edema: no edema noted Arm (L), no edema noted Arm (R) Neurologic: public defender II-XII grossly normal, alert, oriented x 3 Skin: normal pigmentation Assessment/Plan Problem List: (1) Hyponatremia ICD Codes: E87.1 - Hypo-osmolality and hyponatremia SNOMED: 94115612 (2) Dehydration ICD Codes: E86.0 - Dehydration SNOMED: 47516496 (3) Anxiety ICD Codes: F41.9 - Anxiety disorder, unspecified SNOMED: 22649463 (4) HTN (hypertension) ICD Codes: I10 - Essential (primary) hypertension SNOMED: 80457467 (5) COPD (chronic obstructive pulmonary disease) ICD Codes: J44.9 - Chronic obstructive pulmonary disease, unspecified SNOMED: 85753449 (6) Chest pain ICD Codes: R07.9 - Chest pain, unspecified SNOMED: 31753643 (7) Chronic pain ICD Codes: G89.29 - Other chronic pain SNOMED: 89714144 (8) Cervical radiculopathy ICD Codes: M54.12 - Radiculopathy, cervical region SNOMED: 10481289 (9) ACS (acute coronary syndrome) ICD Codes: I24.9 - Acute ischemic heart disease, unspecified SNOMED: 543848592 (10) Hypokalemia ICD Codes: E87.6 - Hypokalemia SNOMED: 10143376 (11) Myalgia ICD Codes: M79.10 - Myalgia, unspecified site SNOMED: 20253226 (12) Hypokalemia ICD Codes: E87.6 - Hypokalemia SNOMED: 36820992 (13) Cervical herniated disc ICD Codes: M50.20 - Other cervical disc displacement, unspecified cervical region SNOMED: 763380253 Status: stable Assessment/Plan: dc ivf monitor labs cont bp rx. titrate as needed pain rx as needed ativan bid prn dvt/stress ulcer prophylaxis check duplex statin pt/ot Kannan Busch MD Jul 30, 2020 08:46
[2020-07-30] MEDS ORDERED: Metoprolol Tartrate 50mg tab ORAL SCH (09:00)
[2020-07-30] MEDS: LORazepam 1mg tab ORAL PRN ×2 (10:27→21:59)
[2020-07-30 12:00] VITALS: BP 159/67
[2020-07-30 16:00] VITALS: BP 158/82
--- NOTE | 2020-07-30 19:10 | NUR ---
NURSE NOTES: RECEIVED REPORT FROM MELANIE GAUTHIER. PT IN BED, AWAKE ALERT/ORIENTED X4, ABLE TO MAKE NEEDS KNOWN. NO RESPIRATORY DISTRESS NOTED. AUTOMATIC EQUIPMENT TECHNICIAN IN PLACE. IV ON RIGHT FOOT 18G SALINE LOCKED. BED IN LOW POSITION & LOCKED BEDSIDE RAILS UP X3. CALL LIGHT WITHIN REACH. ALL NEEDS ATTENDED TO.WILL CONTINUE PLAN OF CARE.
--- NOTE | 2020-07-30 19:26 | NUR ---
NURSE HAND-OFF REPORT: Important Events on Shift:N Patient Status: Diet: Pending Orders: Pending Results/Labs: Pending MD notification: Latest Vital Signs: Temperature 97.9 , Pulse 85 , B/P 158 /82 , Respiratory Rate 18 , O2 SAT 97 , Room Air, O2 Flow Rate . Vital Sign Comment: EKG Rhythm: Sinus Rhythm Rhythm change?: N MD Notified?: N -Dr. Narayan MAR Response: No New Orders Received Latest Ospina Fall Score: 70 Fall Risk: High Risk Safety Measures: Call light Within Reach, Bed Alarm Zone 1, Side Rails Side Rails x2, Bed position Low and Locked. Fall Precautions: Yellow Socks Yellow Gown Door Sign Patient Fall Education Report given to .
[2020-07-30 20:00] VITALS: BP 127/71
[2020-07-30] MEDS: Atorvastatin 80mg tab ORAL SCH (21:58)
[2020-07-31] VITALS (7 sets, daily range): BP systolic 109–151; BP diastolic 45–75
--- NOTE | 2020-07-31 00:52 | Cardiology Progress Note ---
Subjective DATE OF SERVICE: Jul 30, 2020 BP parameters significantly improved with current therapy. Remains on IVF and K+ replacement. No chest pain or SOB today, and troponin has normalized. Objective Last 24 Hour Vital Signs Date Time Temp Pulse Resp B/P (MAP) Pulse Ox O2 Delivery O2 Flow Rate FiO2 07/31/20 00:00 99.6 71 21 134/61 (85) 92 07/31/20 00:00 72 07/30/20 22:29 65 18 118/63 97 07/30/20 21:59 80 20 132/66 97 07/30/20 21:57 80 132/66 07/30/20 21:00 Room Air 07/30/20 20:00 98.4 74 18 127/71 (89) 99 07/30/20 20:00 77 07/30/20 16:00 97.9 85 18 158/82 (107) 97 07/30/20 16:00 85 07/30/20 12:00 97.7 84 20 159/67 (97) 96 07/30/20 12:00 84 07/30/20 10:57 87 18 160/70 95 07/30/20 10:27 87 18 160/70 95 07/30/20 09:00 Room Air 07/30/20 08:11 160/70 07/30/20 08:10 87 160/70 07/30/20 08:09 87 160/70 07/30/20 08:00 87 07/30/20 08:00 97.7 87 18 160/70 (100) 95 07/30/20 04:00 97.5 80 16 151/70 (97) 93 07/30/20 04:00 82 ROS: unchanged from my evaluation of 07/28/20. HEENT: normal ENT inspection RHYTHM: NSR, ST LUNGS: lungs clear bilaterally CARDIAC: normal rate, regular rhythm, normal S1 and S2 ABDOMEN: normal bowel sounds, non tender, soft, no organomegaly EXTREMITIES: normal range of motion, non-tender, No edema Laboratory Tests Test 07/30/20 06:44 White Blood Count 9.8 K/UL (4.8-10.8) Red Blood Count 4.04 M/UL (4.20-5.40) L Hemoglobin 11.4 G/DL (12.0-16.0) L Hematocrit 36.4 % (37.0-47.0) L Mean Corpuscular Volume 90 FL (80-99) Mean Corpuscular Hemoglobin 28.1 PG (27.0-31.0) Mean Corpuscular Hemoglobin Concent 31.2 G/DL (32.0-36.0) L Red Cell Distribution Width 14.9 % (11.6-14.8) H Platelet Count 311 K/UL (150-450) Mean Platelet Volume 7.5 FL (6.5-10.1) Neutrophils (%) (Auto) 64.5 % (45.0-75.0) Lymphocytes (%) (Auto) 27.8 % (20.0-45.0) Monocytes (%) (Auto) 5.0 % (1.0-10.0) Eosinophils (%) (Auto) 1.8 % (0.0-3.0) Basophils (%) (Auto) 0.9 % (0.0-2.0) Sodium Level 137 MMOL/L (136-145) Potassium Level 4.2 MMOL/L (3.5-5.1) Chloride Level 101 MMOL/L (98-107) Carbon Dioxide Level 28 MMOL/L (21-32) Anion Gap 8 mmol/L (5-15) Blood Urea Nitrogen 15 mg/dL (7-18) Creatinine 0.7 MG/DL (0.55-1.30) Estimat Glomerular Filtration Rate > 60 mL/min (>60) Glucose Level 124 MG/DL (74-106) H Calcium Level 9.0 MG/DL (8.5-10.1) Troponin I 0.039 ng/mL (0.000-0.056) Pro-B-Type Natriuretic Peptide 655 pg/mL (0-125) H Triglycerides Level 139 MG/DL (30-150) Cholesterol Level 281 MG/DL (< 200) H LDL Cholesterol 190 mg/dL (<100) H HDL Cholesterol 43 MG/DL (40-60) Cholesterol/HDL Ratio 6.5 (3.3-4.4) H Thyroid Stimulating Hormone (TSH) 2.258 uiU/mL (0.358-3.740) Assessment/Plan Assessment/Plan Hypokalemia corrected Acute myocardial ischemia and possible NSTE myocardial infarction Hypertension/HHD with BP elevations Chronic pain syndrome Hyponatremia/dehydration COPD Nicotine abuse - active smoker Significant hyperlipidemia No resumption of thiazide Advanced losartan dose to be cont'd Titrate beta colette Continue aspirin Consider myocardial perfusion scan as outpatient Taper off IVF Statin therapy added Emir Alanis MD Jul 31, 2020 00:52
[2020-07-31] MEDS: HYDROmorphone 1mg/ml Carpuject IVP PRN ×4 (02:20→20:25)
--- NOTE | 2020-07-31 05:46 | Cardiology Progress Note ---
Subjective DATE OF SERVICE: Jul 31, 2020 BP parameters significantly improved with current therapy. Remains on IVF and K+ replacement. No chest pain; troponin normalized yesterday. Objective Last 24 Hour Vital Signs Date Time Temp Pulse Resp B/P (MAP) Pulse Ox O2 Delivery O2 Flow Rate FiO2 07/31/20 04:00 79 07/31/20 04:00 97.9 79 18 122/68 (86) 99 07/31/20 00:00 99.6 71 21 134/61 (85) 92 07/31/20 00:00 72 07/30/20 22:29 65 18 118/63 97 07/30/20 21:59 80 20 132/66 97 07/30/20 21:57 80 132/66 07/30/20 21:00 Room Air 07/30/20 20:00 98.4 74 18 127/71 (89) 99 07/30/20 20:00 77 07/30/20 16:00 97.9 85 18 158/82 (107) 97 07/30/20 16:00 85 07/30/20 12:00 97.7 84 20 159/67 (97) 96 07/30/20 12:00 84 07/30/20 10:57 87 18 160/70 95 07/30/20 10:27 87 18 160/70 95 07/30/20 09:00 Room Air 07/30/20 08:11 160/70 07/30/20 08:10 87 160/70 07/30/20 08:09 87 160/70 07/30/20 08:00 87 07/30/20 08:00 97.7 87 18 160/70 (100) 95 ROS: unchanged from my evaluation of 07/28/20. HEENT: normal ENT inspection RHYTHM: NSR, ST LUNGS: lungs clear bilaterally CARDIAC: normal rate, regular rhythm, normal S1 and S2 ABDOMEN: normal bowel sounds, non tender, soft, no organomegaly EXTREMITIES: normal range of motion, non-tender, No edema Laboratory Tests Test 07/30/20 06:44 White Blood Count 9.8 K/UL (4.8-10.8) Red Blood Count 4.04 M/UL (4.20-5.40) L Hemoglobin 11.4 G/DL (12.0-16.0) L Hematocrit 36.4 % (37.0-47.0) L Mean Corpuscular Volume 90 FL (80-99) Mean Corpuscular Hemoglobin 28.1 PG (27.0-31.0) Mean Corpuscular Hemoglobin Concent 31.2 G/DL (32.0-36.0) L Red Cell Distribution Width 14.9 % (11.6-14.8) H Platelet Count 311 K/UL (150-450) Mean Platelet Volume 7.5 FL (6.5-10.1) Neutrophils (%) (Auto) 64.5 % (45.0-75.0) Lymphocytes (%) (Auto) 27.8 % (20.0-45.0) Monocytes (%) (Auto) 5.0 % (1.0-10.0) Eosinophils (%) (Auto) 1.8 % (0.0-3.0) Basophils (%) (Auto) 0.9 % (0.0-2.0) Sodium Level 137 MMOL/L (136-145) Potassium Level 4.2 MMOL/L (3.5-5.1) Chloride Level 101 MMOL/L (98-107) Carbon Dioxide Level 28 MMOL/L (21-32) Anion Gap 8 mmol/L (5-15) Blood Urea Nitrogen 15 mg/dL (7-18) Creatinine 0.7 MG/DL (0.55-1.30) Estimat Glomerular Filtration Rate > 60 mL/min (>60) Glucose Level 124 MG/DL (74-106) H Calcium Level 9.0 MG/DL (8.5-10.1) Troponin I 0.039 ng/mL (0.000-0.056) Pro-B-Type Natriuretic Peptide 655 pg/mL (0-125) H Triglycerides Level 139 MG/DL (30-150) Cholesterol Level 281 MG/DL (< 200) H LDL Cholesterol 190 mg/dL (<100) H HDL Cholesterol 43 MG/DL (40-60) Cholesterol/HDL Ratio 6.5 (3.3-4.4) H Thyroid Stimulating Hormone (TSH) 2.258 uiU/mL (0.358-3.740) Assessment/Plan Assessment/Plan Hypokalemia corrected Acute myocardial ischemia resolved Hypertension/HHD with BP controlled Chronic diastolic dysfunction with no acute CHF Chronic pain syndrome Hyponatremia/dehydration COPD Nicotine abuse - active smoker Significant hyperlipidemia No resumption of thiazide Advanced losartan dose to be cont'd Maintain beta colette at current dose. Continue aspirin Consider myocardial perfusion scan as outpatient DC IVF Statin therapy appropriate. Emir Alanis MD Jul 31, 2020 05:46
[2020-07-31] MEDS: LORazepam 1mg tab ORAL PRN ×2 (07:16→17:36)
--- NOTE | 2020-07-31 07:19 | NUR ---
NURSE HAND-OFF REPORT: Important Events on Shift:N/A Patient Status: STABLE Diet: CARDAC Pending Orders: [] Pending Results/Labs:[] Pending MD notification:[] Latest Vital Signs: Temperature 97.9 , Pulse 70 , B/P 127 /66 , Respiratory Rate 20 , O2 SAT 96 , Room Air, O2 Flow Rate . Vital Sign Comment: [] EKG Rhythm: Sinus Rhythm Rhythm change?: N MD Notified?: N -Dr. Narayan MAR Response: No New Orders Received Latest Ospina Fall Score: 70 Fall Risk: High Risk Safety Measures: Call light Within Reach, Bed Alarm Zone 1, Side Rails Side Rails x2, Bed position Low and Locked. Fall Precautions: Yellow Socks Yellow Gown Door Sign Patient Fall Education Report given to MELANIE ANN.
[2020-07-31 07:30] LABS: BASOPHILS % (AUTO) 0.9 % (0.0-2.0); EOSINOPHILS % (AUTO) 1.8 % (0.0-3.0); HEMATOCRIT 37.5 % (37.0-47.0); HEMOGLOBIN 11.7 G/DL (12.0-16.0); LYMPHOCYTES % (AUTO) 29.2 % (20.0-45.0); MEAN CORPUSCULAR VOLUME 90 FL (80-99); MONOCYTES % (AUTO) 5.5 % (1.0-10.0); NEUTROPHILS % (AUTO) 62.6 % (45.0-75.0); PLATELET COUNT 318 K/UL (150-450); RED BLOOD COUNT 4.17 M/UL (4.20-5.40); WHITE BLOOD COUNT 10.2 K/UL (4.8-10.8)
--- NOTE | 2020-07-31 09:02 | General Progress Note ---
Subjective ROS Limited/Unobtainable: No Constitutional: Reports: malaise, weakness HEENT: Reports: no symptoms Cardiovascular: Reports: chest pain Respiratory: Reports: no symptoms Gastrointestinal/Abdominal: Reports: no symptoms Genitourinary: Reports: no symptoms Neurologic/Psychiatric: Reports: anxiety, depressed, emotional problems Endocrine: Reports: no symptoms Hematologic/Lymphatic: Reports: no symptoms Allergies: Coded Allergies: No Known Allergies (Verified , 03/28/07) All Systems: reviewed and negative except above Subjective no events. c/o generalized pain. no sob. troponin trending down. difficulty walking due to joint pains. no fevers or chills. no sob. Objective Last 24 Hour Vital Signs Date Time Temp Pulse Resp B/P (MAP) Pulse Ox O2 Delivery O2 Flow Rate FiO2 07/31/20 07:16 70 20 127/66 96 07/31/20 04:00 79 07/31/20 04:00 97.9 79 18 122/68 (86) 99 07/31/20 00:00 99.6 71 21 134/61 (85) 92 07/31/20 00:00 72 07/30/20 22:29 65 18 118/63 97 07/30/20 21:59 80 20 132/66 97 07/30/20 21:57 80 132/66 07/30/20 21:00 Room Air 07/30/20 20:00 98.4 74 18 127/71 (89) 99 07/30/20 20:00 77 07/30/20 16:00 97.9 85 18 158/82 (107) 97 07/30/20 16:00 85 07/30/20 12:00 97.7 84 20 159/67 (97) 96 07/30/20 12:00 84 07/30/20 10:57 87 18 160/70 95 07/30/20 10:27 87 18 160/70 95 07/30/20 09:00 Room Air Intake and Output 07/30/20 07/31/20 19:00 07:00 Intake Total 120 ml 500 ml Output Total 650 ml 800 ml Balance -530 ml -300 ml Intake Oral 120 ml 500 ml Output Urine Total 650 ml 800 ml # Bowel Movements 2 Laboratory Tests 07/31/20 06:11: White Blood Count 10.2, Red Blood Count 4.17L, Hemoglobin 11.7L, Hematocrit 37.5, Mean Corpuscular Volume 90, Mean Corpuscular Hemoglobin 28.1, Mean Corpuscular Hemoglobin Concent 31.2L, Red Cell Distribution Width 15.0H, Platelet Count 318, Mean Platelet Volume 7.6, Neutrophils (%) (Auto) 62.6, Lymphocytes (%) (Auto) 29.2, Monocytes (%) (Auto) 5.5, Eosinophils (%) (Auto) 1.8, Basophils (%) (Auto) 0.9 Height (Feet): 5 Height (Inches): 5.00 Weight (Pounds): 189 Objective General Appearance: WD/WN, alert EENT: normal ENT inspection Neck: non-tender, normal alignment, supple Cardiovascular: normal rate, regular rhythm Respiratory/Chest: chest wall non-tender, lungs clear, normal breath sounds, no respiratory distress, no accessory muscle use Abdomen: normal bowel sounds, non tender, soft, no organomegaly Edema: no edema noted Arm (L), no edema noted Arm (R) Neurologic: food handler II-XII grossly normal, alert, oriented x 3 Skin: normal pigmentation Assessment/Plan Problem List: (1) Hyponatremia ICD Codes: E87.1 - Hypo-osmolality and hyponatremia SNOMED: 88352873 (2) Dehydration ICD Codes: E86.0 - Dehydration SNOMED: 34673856 (3) Anxiety ICD Codes: F41.9 - Anxiety disorder, unspecified SNOMED: 44390911 (4) HTN (hypertension) ICD Codes: I10 - Essential (primary) hypertension SNOMED: 20151113 (5) COPD (chronic obstructive pulmonary disease) ICD Codes: J44.9 - Chronic obstructive pulmonary disease, unspecified SNOMED: 74145835 (6) Chest pain ICD Codes: R07.9 - Chest pain, unspecified SNOMED: 93507324 (7) Chronic pain ICD Codes: G89.29 - Other chronic pain SNOMED: 39856000 (8) Cervical radiculopathy ICD Codes: M54.12 - Radiculopathy, cervical region SNOMED: 07430454 (9) ACS (acute coronary syndrome) ICD Codes: I24.9 - Acute ischemic heart disease, unspecified SNOMED: 849754967 (10) Hypokalemia ICD Codes: E87.6 - Hypokalemia SNOMED: 72043816 (11) Myalgia ICD Codes: M79.10 - Myalgia, unspecified site SNOMED: 39510828 (12) Hypokalemia ICD Codes: E87.6 - Hypokalemia SNOMED: 99127188 (13) Cervical herniated disc ICD Codes: M50.20 - Other cervical disc displacement, unspecified cervical region SNOMED: 756647554 Status: stable Assessment/Plan: monitor labs cont bp rx. titrate as needed pain rx as needed ativan bid prn dvt/stress ulcer prophylaxis check duplex- r/o dvt statin pt/ot to med surg Kannan Busch MD Jul 31, 2020 09:02
[2020-07-31] MEDS: Docusate 100mg cap ORAL SCH ×2 (09:26→17:37)
[2020-07-31] MEDS: Aspirin EC 81mg tab ORAL SCH (09:26)
[2020-07-31] MEDS: Losartan 50mg tab ORAL SCH (09:27)
[2020-07-31] MEDS: Heparin 5000 units/ml inj SUBQ SCH ×2 (09:28→20:35)
--- NOTE | 2020-07-31 11:10 | NUR ---
NURSE NOTES: patient was transferred from tele placed room 419-[address]Uomoto messina. dx of hyponatremia, generalized vyas. received report from MELANIE bush. patient is axox name, place, purpose. forgetful at times. verbally responsive. no respiratory distress on room air. lung sound clear. active bowel sound. mild discomfort now. IV on right foot intact. flushed. no skin issues. warm and dry to touch. check and counted belongings with patient and MELANIE Bush. patient said she did not have shirts and shoes which are checked on belonging paper when she came to ER. updated belonging papers. bedrest. the bed in the lowest position and locked. call light within reach. will continue to provide plan of care.
--- NOTE | 2020-07-31 13:50 | NUR ---
PT NOTE Attempted to see patient for PT treatment. Patient groggy/sleepy, wakes up when spoken to but then falls back asleep. Patient declined to participate with PT. Lilibeth NAVARRO notified, will follow up tomorrow.
--- NOTE | 2020-07-31 14:04 | NUR ---
REGULATORY LEADER NOTE SW attempted to meet w/ pt to evaluate home safety. Pt provided very limited information. Pt resides alone in her apartment and does not have a caregiver. PT reports she is ambulatory w/o DME and independent w/ ADLs and IADLs. Per PT note, pt was recommended for rehab d/t weakness and high risk fall. Pt did not provide information when this SW asked further questions. PT informed this SW that she plans to return home upon DC. PT does not share any concerns/needs at home.
--- NOTE | 2020-07-31 14:34 | NUR ---
CASE MANAGEMENT:REVIEW 07/31/20 SI: AMI. COPD. HYPOKALEMIA H/O SPINAL STENOSIS 99.2 81 20 109/45 96% ON RA BNP+655 IS: LIPITOR PO QHS COLACE PO BID COZAAR PO QD LOPRESSOR PO Q12 ASA PO QD NORVASC PO QD HEPARIN SQ Q12 IV DILAUDID Q4HRS : TRANSFERRED TO MED/SURG DCP: FROM HOME
[2020-07-31] MEDS ORDERED: ATIVAN1 MG ORAL (18:30)
--- NOTE | 2020-07-31 19:31 | NUR ---
NURSE HAND-OFF: Important Events on Shift:transferred from tele. pain management Patient Status: stable Diet: cardiac Pending Orders: n/a Pending Results/Labs:n/a Pending MD notification:n/a Latest Vital Signs: Temperature 98.1 , Pulse 75 , B/P 144 /71 , Respiratory Rate 20 , O2 SAT 92 , Room Air, O2 Flow Rate . Vital Sign Comment: stable Latest Ospina Fall Score: 70 Fall Risk: High Risk Safety Measures: Call light Within Reach, Bed Alarm Zone 1, Side Rails Side Rails x2, Bed position Low and Locked. Fall Precautions: Yellow Socks Yellow Gown Door Sign Patient Fall Education Report given to MELANIE Harrison.
--- NOTE | 2020-07-31 19:49 | NUR ---
NURSE NOTES: Patient in bed, awake, alert and verbally responsive. Able to make needs known. respiration is even and unlabored. No complaint of pain or discomfort noted at this time. Skin is intact, warm and dry to touch. Iv site noted on the foot, intact, flushed. Kept clean and comfortable. Provided safe environment. Abdomen is soft and non distended. call light is at bedside. Will continue plan of care.
[2020-07-31] MEDS: Atorvastatin 80mg tab ORAL SCH (20:24)
--- NOTE | 2020-07-31 20:40 | NUR ---
NURSE NOTES: Patient in bed, given PRn pain medication for generalized pain, will reassess. Call light is at bedside. Will continue plan of care.
[2020-08-01] MEDS: LORazepam 1mg tab ORAL PRN ×2 (00:18→08:33)
[2020-08-01] MEDS: HYDROmorphone 1mg/ml Carpuject IVP PRN ×3 (00:19→08:39)
[2020-08-01 04:00] VITALS: BP 156/78
--- NOTE | 2020-08-01 04:06 | NUR ---
NURSE NOTES: Complained of generalized pain, given PRN pain medication. Will reassess. Call light is at bedside. Will continue plan of care.
--- NOTE | 2020-08-01 07:14 | NUR ---
NURSE NOTES: Report received from Hunter NAVARRO, rounds made. Patient sleeping, awakens easily to name. Oriented x4, calm. Respirations even, unlabored. No distress. Right foot saline lock in place, site asymptomatic. Call light in reach, bed in lowest position, will continue to monitor.
--- NOTE | 2020-08-01 07:26 | NUR ---
NURSE HAND-OFF: Important Events on Shift:WNL Patient Status: Diet: Cardiac Pending Orders: Pending Results/Labs: Pending MD notification: Latest Vital Signs: Temperature 97.7 , Pulse 78 , B/P 156 /78 , Respiratory Rate 18 , O2 SAT 96 , Room Air, O2 Flow Rate . Vital Sign Comment: Latest Ospina Fall Score: 70 Fall Risk: High Risk Safety Measures: Call light Within Reach, Bed Alarm Zone 1, Side Rails Side Rails x2, Bed position Low and Locked. Fall Precautions: Yellow Socks Yellow Gown Door Sign Patient Fall Education Report given to .
[2020-08-01 08:00] VITALS: BP 140/77
[2020-08-01] MEDS: Heparin 5000 units/ml inj SUBQ SCH (08:32)
[2020-08-01] MEDS: Aspirin EC 81mg tab ORAL SCH (08:32)
[2020-08-01] MEDS: Losartan 50mg tab ORAL SCH (08:38)
[2020-08-01] MEDS: Docusate 100mg cap ORAL SCH (08:38)
[2020-08-01 08:58] LABS: BASOPHILS % (AUTO) 0.7 % (0.0-2.0); EOSINOPHILS % (AUTO) 1.5 % (0.0-3.0); HEMATOCRIT 33.7 % (37.0-47.0); LYMPHOCYTES % (AUTO) 21.8 % (20.0-45.0); MEAN CORPUSCULAR VOLUME 90 FL (80-99); PLATELET COUNT 338 K/UL (150-450); RED BLOOD COUNT 3.74 M/UL (4.20-5.40); RED CELL DISTRIBUTION WIDTH 15.5 % (11.6-14.8); WHITE BLOOD COUNT 9.3 K/UL (4.8-10.8)
[2020-08-01 09:36] LABS: ALANINE AMINOTRANSFERASE 24 U/L (12-78); ALBUMIN/GLOBULIN RATIO 0.7 (1.0-2.7); ALKALINE PHOSPHATASE 73 U/L (46-116); ANION GAP 9 mmol/L (5-15); ASPARTATE AMINO TRANSFERASE 20 U/L (15-37); BILIRUBIN,TOTAL 0.3 MG/DL (0.2-1.0); BLOOD UREA NITROGEN 19 mg/dL (7-18); CARBON DIOXIDE 27 MMOL/L (21-32); CHLORIDE 101 MMOL/L (98-107); CREATININE 0.7 MG/DL (0.55-1.30); POTASSIUM 3.8 MMOL/L (3.5-5.1); SODIUM 137 MMOL/L (136-145)
[2020-08-01 12:00] VITALS: BP 139/82
--- NOTE | 2020-08-01 15:12 | NUR ---
NURSE NOTES: Discharge instructions reviewed with patient, verbalized understanding. All belongings and discharge instructions given to patient. Right foot saline lock discontinued, no active bleeding. ID bracelet removed. [facility] , in stable condition with Tomer COLEY. Discharged home by Sherin at 1512.
--- NOTE | 2020-08-05 10:28 | Discharge Summary ---
Discharge Summary Discharge Summary _ DATE OF ADMISSION: 07/28/2020 DATE OF DISCHARGE: 08/01/2020 DISCHARGED BY: Dr Busch REASON FOR ADMISSION: 70 years old female with past medical history of COPD, spinal stenosis, obesity, chronic pain, anxiety and depression, presented for evaluation due to generalized pain. Pain reported in the neck , back , shoulders and most joints aside from the feet. She denied recent fevers , fall or injury. Patient reported history of discectomy of the cervical spine in 2013. No numbness or tingling. No prior history of fibromyalgia, rheumatic disease , aside from osteoporosis. Patient was not able to localize pain and stated that itwas s present in all her joints and muscle. Patient apparently was seen in another emergency department where all work-up was negative, as reported by patient . Upon evaluation patient was slightly tachycardic with heart rate 108 , blood pressure was 147/79 , respiratory rate 22, patient was afebrile. Laboratory work-up revealed leukocytosis WBC 16.4, hemoglobin 11.9, hematocrit 36.5. Potassium 2.6, sodium 134. Stable renal parameters. Glucose 141. Troponin negative. EKG revealed sinus rhythm , no acute ischemic changes. Urinalysis revealed no evidence of urinary tract infection, +2 protein. Chest x-ray demonstrated no acute cardiopulmonary pathology. X-ray of the bilateral hip and pelvis revealed no acute process. Patient started IV fluids, received potassium repletion and admitted for further management. CONSULTANTS: vp outcomes Dr. Alanis HOSPITAL COURSE: Patient admitted and continued on IV hydration. Diuretic discontinued . Potassium supplements further provided. Volumes were clsoely monitored. Pain management was addressed. Fall precaution maintained . Patient was working with physical therapist. Antiplatelet therapy with aspirin provided. Blood pressure was managed with multiple antihypertensive medication as per vp outcomes . Antihypertensive regimen uptitrated to bring blood pressure under control. Lipid panel revealed elevated total cholesterol 281, LDL 190 ,TSH within normal limits. Triglycerides 139. Patient was on maximum dose of statin 80 mg. Patient was counseled on therapeutic lifestyle changes, including low-fat low-cholesterol diet, weight loss and exercise. Repeat lipid panel in 3 months. DVT prophylaxis provided. Second troponin minimally elevated, and the third troponin normal. No chest pain. Software Design Analyst recommended do not resume diuretic/thiazide and consider myocardial perfusion scan test as outpatient. IV fluids subsequently discontinued. Prior to discharge electrolytes stable: sodium 137 potassium 3.8. Leukocytosis resolved the next day , probably reactive. Patient was counseled on tobacco cessation. Patient declined nicotine patch. Patient clinically stabilized and was ready for discharge home. FINAL DIAGNOSES: Leukocytosis -resolved Dehydration Hyponatremia -corrected Hypokalemia -corrected Acute myocardial ischemia resolved Hypertensive heart disease Chronic diastolic dysfunction Chronic pain syndrome COPD Active smoker /nicotine abuse Significant hyperlipidemia Generalized diffuse pain DISCHARGE MEDICATIONS: See Medication Reconciliation list. DISCHARGE INSTRUCTIONS: Patient was discharged home. Follow-up with a primary care provider in 1 week. Recommended myocardial perfusion scan test as outpatient. I have been assigned to dictate discharge summary for this account. I was not involved in the patient's management. Danyell Gerardo NP Aug 05, 2020 10:28
--- NOTE | 2020-08-07 04:19 | Cardiology Report ---
APPROVED REPORT EKG Measurement Heart [id number] <Conclusion> Sinus tachycardia Nonspecific ST abnormality Abnormal ECG
== END 2020-08-01 15:18 | disposition home or self-care (01) | DRG 641 ==
LOC: EDBD 06:26 → EMR 06:46 → 2E 07:41 → EDBEDREQ 10:28 → 4E 07-31 11:20
DX: E87.6 Hypokalemia (principal); I24.9 Acute ischemic heart disease, unspecified; I50.32 Chronic diastolic (congestive) heart failure; E87.1 Hypo-osmolality and hyponatremia; I51.3 Intracardiac thrombosis, not elsewhere classified; M79.10 Myalgia, unspecified site; E86.0 Dehydration; J44.9 Chronic obstructive pulmonary disease, unspecified; I11.0 Hypertensive heart disease with heart failure; G89.4 Chronic pain syndrome; F17.200 Nicotine dependence, unspecified, uncomplicated; F11.11 Opioid abuse, in remission; M50.10 Cervical disc disorder with radiculopathy, unspecified cervical region; E78.5 Hyperlipidemia, unspecified; K21.9 Gastro-esophageal reflux disease without esophagitis; M50.20 Other cervical disc displacement, unspecified cervical region; E66.9 Obesity, unspecified; M25.59 Pain in other specified joint; Z91.81 History of falling; F32.9 Major depressive disorder, single episode, unspecified; F41.9 Anxiety disorder, unspecified; R26.2 Difficulty in walking, not elsewhere classified; M81.0 Age-related osteoporosis without current pathological fracture; D72.829 Elevated white blood cell count, unspecified
CPT/HCPCS: 36415; 71045; 73521; 80048; 80053; 80061; 81003; 82550; 83036; 83735; 83880; 84100; 84443; 84484; 85025; 85651; 93005; 96365; 96372; 96375; 99291; J8499

== ENCOUNTER 2020-08-14 23:16 | Emergency (ER) | payer MEDICARE, OTHER ==
[~2020-08-14] VITALS: Ht 165.1 cm; Wt 81.6 kg
--- NOTE | 2020-08-14 23:25 | Emergency Room Report ---
History of Present Illness General Chief Complaint: Headache Source: Patient, Medical Record, EMS Present Illness HPI This is a 70-year-old female with a history of high blood pressure, chronic pain, anxiety who presents with chief complaint of high blood pressure and chest pain. She said her blood pressure at home was systolic 179. She also complained of chest pain all day. Pain is diffuse across her chest. Also with bilateral shoulder pain which is a chronic issue for her. No nausea no vomiting. No fever chills. No exertional component. She called 911 initially complaining of high blood pressure and headache. Here she started complaint of chest pain. Did not receive any medication by EMS since she did not complain of chest pain to them. Allergies: Coded Allergies: No Known Allergies (Verified , 03/28/07) COVID-19 Screening Contact w/high risk pt: No Experienced COVID-19 symptoms?: No COVID-19 Testing performed GOLF SALES MANAGER: No Patient History Past Medical History: see triage record, old chart reviewed, HTN, psych hx Past Surgical History: other Pertinent Family History: none Social History: Denies: smoking Now: No Immunizations: other Reviewed Nursing Documentation: PMH: Agreed; PSxH: Agreed Nursing Documentation-PMH Hx Cardiac Problems: Yes - spinal stenosis Hx Hypertension: Yes Hx Pacemaker: No Hx Asthma: No Hx COPD: Yes Hx Diabetes: No Hx Cancer: No Hx Gastrointestinal Problems: No Hx Dialysis: No Hx Neurological Problems: Yes - spinal stenosis Hx Cerebrovascular Accident: No Hx Seizures: No Hx 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 2012 Hx Weakness: Yes - Generalized/fall risk Hx Fatigue: Yes Hx Neurologic Surgery: No Review of Systems Eye: Denies: eye pain, blurred vision ENT: Denies: ear pain, nose congestion, throat swelling Respiratory: Denies: cough, shortness of breath Cardiovascular: Reports: chest pain; Denies: palpitations Gastrointestinal: Denies: abdominal pain, diarrhea, nausea, vomiting Musculoskeletal: Reports: joint pain, muscle pain; Denies: back pain Skin: Denies: rash Neurological: Reports: headache; Denies: numbness Endocrine: Denies: increased thirst, increased urine Hematologic/Lymphatic: Denies: easy bruising All Other Systems: negative except mentioned in HPI Physical Exam Vital Signs Date Time Temp Pulse Resp B/P (MAP) Pulse Ox O2 Delivery O2 Flow Rate FiO2 08/14/20 23:12 98.8 112 16 171/95 (120) 98 Room Air Vitals with high blood pressure Sp02 EP Interpretation: reviewed, normal General Appearance: well appearing, no apparent distress, alert Head: normocephalic, atraumatic Eyes: bilateral eye PERRL, bilateral eye EOMI ENT: hearing grossly normal, normal pharynx Neck: full range of motion, supple, no meningismus Respiratory: chest non-tender, lungs clear, normal breath sounds Cardiovascular #1: regular rate, rhythm, no murmur Gastrointestinal: normal bowel sounds, non tender, no mass, no organomegaly, no bruit, non-distended Musculoskeletal: back normal, normal range of motion, gait/station normal Psychiatric: anxious Medical Decision Making Diagnostic Impression: Primary Impression: Headache Qualified Codes: R51.9 - Headache, unspecified Additional Impressions: HTN (hypertension) Qualified Codes: I10 - Essential (primary) hypertension Arthralgia Qualified Codes: M25.511 - Pain in right shoulder; M25.512 - Pain in left shoulder Chest pain Qualified Codes: R07.9 - Chest pain, unspecified ER Course Patient presents with generalized joint pain but mostly in her shoulder. She also has vague atypical chest pain. This pain been ongoing for over a day and with normal EKG normal troponin. No evidence of ACS, PE, dissection to name a few. Blood pressure is elevated. I added blood pressure medications to her regimen. EKG Diagnostic Results Troponin ordered: Yes Rate: normal Rhythm: NSR ST Segments: no acute changes ASA given to the pt in ED: Yes Rhythm Strip Diag. Results EP Interpretation: yes Rate: 84 Rhythm: NSR, no PVC's, no ectopy Chest X-Ray Diagnostic Results Chest X-Ray Diagnostic Results : Chest X-Ray Ordered: Yes # of Views/Limited/Complete: 1 View Indication: Chest Pain EP Interpretation: Yes Interpretation: no consolidation, no effusion, no pneumothorax, no acute cardiopulmonary disease Impression: No acute disease Electronically Signed by: Jones Washington MD Last Vital Signs Date Time Temp Pulse Resp B/P (MAP) Pulse Ox O2 Delivery O2 Flow Rate FiO2 08/14/20 23:12 98.8 112 16 171/95 (120) 98 Room Air Status: improved Disposition: HOME, SELF-CARE Condition: Stable Scripts Losartan Potassium* (COZAAR*) 50 Mg Tablet 50 MG ORAL DAILY, #90 TAB Prov: Jones Washington MD 08/15/20 Hydrocodone/Acetaminophen 5-325* (HYDROCODONE/ACETAMINOPHEN 5-325*) 1 Each Tablet 1 TAB ORAL Q6H PRN for For Pain, #30 TAB 0 Refills Prov: Jones Washington MD 08/15/20 Additional Instructions: Follow-up with your doctor in 7 days. Return if symptoms worsen. Jones Washington MD Aug 14, 2020 23:25
[2020-08-14] MEDS ORDERED: Aspirin Baby 81mg ORAL ONE (23:30)
[2020-08-14] MEDS ORDERED: Ketorolac 30mg Inj IV ONE (23:30)
--- NOTE | 2020-08-14 23:30 | NUR ---
ED Nurse Note: brought in by sky de [facility] 26 from home c/o chest pain nonradiating and headache onset since am. pt states her bp at home was 171/95. pt also reports chronic shoulder pain. vss, nad, aaox4, ambulatory, blood drawn and sent to lab. on hair spinner, freddy at bedside.
[2020-08-14 23:40] VITALS: BP 171/95
--- NOTE | 2020-08-14 23:43 | NUR ---
ED Nurse Note: xr at bedside
[2020-08-14 23:46] LABS: BASOPHILS % (AUTO) 0.8 % (0.0-2.0); EOSINOPHILS % (AUTO) 2.8 % (0.0-3.0); HEMATOCRIT 38.1 % (37.0-47.0); HEMOGLOBIN 11.9 G/DL (12.0-16.0); LYMPHOCYTES % (AUTO) 39.2 % (20.0-45.0); MEAN CORPUSCULAR VOLUME 96 FL (80-99); MONOCYTES % (AUTO) 7.7 % (1.0-10.0); NEUTROPHILS % (AUTO) 49.4 % (45.0-75.0); PLATELET COUNT 268 K/UL (150-450); RED BLOOD COUNT 3.98 M/UL (4.20-5.40); RED CELL DISTRIBUTION WIDTH 15.5 % (11.6-14.8); WHITE BLOOD COUNT 7.2 K/UL (4.8-10.8)
--- NOTE | 2020-08-14 23:52 | NUR ---
ED Nurse Note: urine collected and sent to lab
[2020-08-14 23:58] LABS: CALCIUM 8.6 MG/DL (8.5-10.1); CREATININE 1.3 MG/DL (0.55-1.30); POTASSIUM 3.7 MMOL/L (3.5-5.1)
[2020-08-15 00:01] LABS: APPEARANCE,URINE SLIGHTLY CLOUDY; BILIRUBIN, URINE NEGATIVE (NEGATIVE); COLOR,URINE PALE YELLOW; GLUCOSE, URINE (UA) NEGATIVE (NEGATIVE); KETONES,URINE NEGATIVE (NEGATIVE); LEUKOCYTE ESTERASE ,URINE 3+ (NEGATIVE); NITRITE,URINE POSITIVE (NEGATIVE); PH,URINE 6 (4.5-8.0); PROTEIN,URINE NEGATIVE (NEGATIVE); UROBILINOGEN,URINE NORMAL MG/DL (0.0-1.0)
[2020-08-15 00:02] LABS: ALBUMIN/GLOBULIN RATIO 1.1 (1.0-2.7); BILIRUBIN,TOTAL 0.2 MG/DL (0.2-1.0)
[2020-08-15] MEDS ORDERED: Morphine Sulfate 4mg/ml Inj (IV USE ONLY) IVP ONE ×2 (00:30)
[2020-08-15] MEDS ORDERED: HYDROCODON-ACE1 EA15 ORAL (00:43)
[2020-08-15] MEDS ORDERED: COZAAR50 MG ORAL (00:43)
[2020-08-15 00:55] VITALS: BP 149/94
--- NOTE | 2020-08-15 00:55 | NUR ---
ER DISCHARGE NOTE: Patient is cleared to be discharged per ERMD, pt is aox4, on room air, with stable vital signs. pt was given dc and prescription instructions, pt was able to verbalize understanding, pt id band and iv site removed without complications. pt is able to ambulate with steady gait. pt took all belongings.
--- NOTE | 2020-08-15 15:29 | Diagnostic Imaging Report ---
Indication: Chest pain Technique: One view of the chest Comparison: 07/29/2020 Findings: Lungs and pleural spaces are clear. The heart size is normal. There is evidence of prior cervical spine fusion surgery. Findings are unchanged Impression: No acute process
--- NOTE | 2020-08-17 02:59 | Emergency Room Report ---
History of Present Illness General Chief Complaint: Headache Source: Patient, Medical Record, EMS Present Illness Allergies: Coded Allergies: No Known Allergies (Verified , 03/28/07) COVID-19 Screening Contact w/high risk pt: No Experienced COVID-19 symptoms?: No COVID-19 Testing performed CAM [employer]ER: No Patient History Now: No Nursing Documentation-PMH Hx Cardiac Problems: Yes - spinal stenosis Hx Hypertension: Yes Hx Pacemaker: No Hx Asthma: No Hx COPD: Yes Hx Diabetes: No Hx Cancer: No Hx Gastrointestinal Problems: No Hx Dialysis: No Hx Neurological Problems: Yes - spinal stenosis Hx Cerebrovascular Accident: No Hx Seizures: No Hx 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 2012 Hx Weakness: Yes - Generalized/fall risk Hx Fatigue: Yes Hx Neurologic Surgery: No Physical Exam Vital Signs Date Time Temp Pulse Resp B/P (MAP) Pulse Ox O2 Delivery O2 Flow Rate FiO2 08/14/20 23:12 98.8 112 16 171/95 (120) 98 Room Air Medical Decision Making Diagnostic Impression: Primary Impression: Headache Qualified Codes: R51.9 - Headache, unspecified Additional Impressions: HTN (hypertension) Qualified Codes: I10 - Essential (primary) hypertension Arthralgia Qualified Codes: M25.511 - Pain in right shoulder; M25.512 - Pain in left shoulder Chest pain Qualified Codes: R07.9 - Chest pain, unspecified ER Course Patient called the emergency department saying that she was still having dysuria. Review of patient's records show that she had a urinalysis performed that did show leukocyte esterase and some leukocytes. Prescription for Keflex 500 mg twice daily for 5 days was called into [facility] pharmacy. Pharmacy phone # [phone]. Last Vital Signs Date Time Temp Pulse Resp B/P (MAP) Pulse Ox O2 Delivery O2 Flow Rate FiO2 08/15/20 00:55 98.7 08/15/20 00:55 88 16 149/94 98 Room Air Disposition: HOME, SELF-CARE Condition: Stable Scripts Losartan Potassium* (COZAAR*) 50 Mg Tablet 50 MG ORAL DAILY, #90 TAB Prov: Jones Washington MD 08/15/20 Hydrocodone/Acetaminophen 5-325* (HYDROCODONE/ACETAMINOPHEN 5-325*) 1 Each Tablet 1 TAB ORAL Q6H PRN for For Pain, #30 TAB 0 Refills Prov: Jones Washington MD 08/15/20 Referrals: NOT CHOSEN IPA/,REFERRING (PCP) Patient Instructions: Hypertension, [id number] Additional Instructions: Follow-up with your doctor in 7 days. Return if symptoms worsen. Jb Evans M.D. Aug 17, 2020 02:59
== END 2020-08-15 00:55 | disposition home or self-care (01) ==
LOC: EDBD 23:16 → EMR 23:29
DX: R51.9 Headache, unspecified (principal); I10 Essential (primary) hypertension; M25.511 Pain in right shoulder; R07.9 Chest pain, unspecified; J44.9 Chronic obstructive pulmonary disease, unspecified
CPT/HCPCS: 36415; 71045; 80053; 81003; 84484; 85025; 93005; 96374; 96375; 99284; J1885; J2270